=== PATIENT | female | born 1990 | race Caucasian/White ===

== ENCOUNTER 2016-04-19 19:19 | Emergency (ER) | payer BC, MEDICAID ==
[2016-04-19 19:25] VITALS: BP 132/76
[2016-04-19] MEDS ORDERED: Ondansetron INJ* 2 MG/ML VIAL IV ONE (19:38)
[2016-04-19] MEDS ORDERED: NS 0.9% 1000 ML* 1,000 ML IV ONE (19:38)
[2016-04-19] MEDS ORDERED: Ketorolac INJ* 30 MG/ML 1 ML VIAL IV ONE (19:38)
[2016-04-19 20:17] LABS: Hematocrit 40 % (35-47); Hemoglobin 13.4 g/dl (12.0-16.0); Mean Corpuscular HGB Conc 33 g/dl (31-36); Mean Corpuscular Hemoglobin 29 pg (27-31); Mean Corpuscular Volume 87 fL (80-97); Mean Platelet Volume 8 um3 (7.4-10.4); Red Blood Count 4.62 10^6/ul (4.0-5.4); Red Cell Distribution Width 13 % (10.5-15); Urine Bacteria Absent (Absent); Urine Bilirubin Negative (Negative); Urine Glucose Negative (Negative); Urine Nitrite Negative (Negative); White Blood Count 12.6 10^3/ul (3.5-10.8)
[2016-04-19 20:30] LABS: ALT 39 U/L (7-52); AST 23 U/L (13-39); Albumin 4.6 g/dL (3.2-5.2); Alkaline Phosphatase 60 U/L (34-104); Anion Gap 3 mmol/L (2-11); BUN/Creatinine Ratio 18.1 (8-20); Blood Urea Nitrogen 13 mg/dL (6-24); CO2 Carbon Dioxide 26 mmol/L (22-32); Calcium 9.4 mg/dL (8.6-10.3); Chloride 105 mmol/L (101-111); EGFR Non-African American 99.5 (>60); Globulin 2.6 g/dL (2-4); Glucose 95 mg/dL (70-100); Potassium 3.5 mmol/L (3.5-5.0); Sodium 134 mmol/L (133-145); Total Protein 7.2 g/dL (6.4-8.9)
--- NOTE | 2016-04-19 20:38 | ED ---
Stephane Nazario Erika, scribed for German Hernandez MD on 04/19/16 at 1943 . Abdominal Pain/Female - HPI Summary HPI Summary: Patient is a 26-year-old female presenting to the ED with c/o intermittent lower abdominal pain starting 1 month ago. Patient reports that for the past month, she has experienced the abdominal pain, lower back pain, and vaginal discharge, all gradually worsening. She also reports intermittent vomiting, most recently yesterday, and intermittent diarrhea, most recently 1 week ago. She also states pain with BMs. Associated symptoms include headaches and a subjective fever with diaphoresis. Pt denies urinary symptoms. Patient states she has not been seen for the pain in the past, and that she came in today because the pain worsened. She reports that pain is not alleviated by Tylenol and ibuprofen, which she took a few days ago. She also reports she has been taking her friend's hydrocodone (most recently this morning) and oxycodone ( most recently this afternoon). Pt states she has an implanon, and her last period was about 1 year ago. - History of Current Complaint Chief Complaint: EDAbdPain Stated Complaint: LOWER BACK/ABD PAIN Hx Obtained From: Patient, Family/Television Production Technician - Mother Hx Last Menstrual Period: NEXPLANON Onset/Duration: Gradual Onset, Lasting Weeks - about 1 month, Worse Since Timing: Intermittent Episode Lasting Severity Initially: Mild Severity Currently: Moderate Pain Intensity: 8 Pain Scale Used: 0-10 Numeric Location: Other - lower Radiates: Yes Radiates to: Back - lower Aggravating Factor(s): Food Associated Signs and Symptoms: Positive: Diaphoresis, Fever, Back Pain, Vaginal Discharge, Nausea, Vomiting, Diarrhea. Negative: Urinary Symptoms Allergies/Adverse Reactions: Allergies Allergy/AdvReac Type Severity Reaction Status Date / Time Amoxicillin [From Augmentin] Allergy Hives Verified 03/12/16 18:51 Clavulanic Acid Allergy Hives Verified 03/12/16 18:51 [From Augmentin] Penicillins Allergy Hives Verified 03/12/16 18:51 CAT Allergy Hives Uncoded 01/19/16 09:30 PMH/Surg Hx/FS Hx/Imm Hx Endocrine/Hematology History: Denies: Hx Diabetes, Hx Thyroid Disease Cardiovascular History: Reports: Other Cardiovascular Problems/Disorders - HEART MURMUR Denies: Hx Hypertension Respiratory History: Denies: Hx Asthma, Hx Chronic Obstructive Pulmonary Disease (COPD) GI History: Denies: Hx Ulcer Psychiatric History: Reports: Hx Anxiety, Hx Depression, Hx Bipolar Disorder - sees mental health, Hx Substance Abuse Denies: Hx Eating Disorder, Hx of Violent Episodes Against Others - Surgical History Surgery Procedure, Year, and Place: 06/14/14 Infectious Disease History: No Infectious Disease History: Denies: Hx Clostridium Difficile, Hx Hepatitis, Hx Human Immunodeficiency Virus (HIV), Hx of Known/Suspected MRSA, Hx Shingles, Hx Tuberculosis, Hx Known/ Suspected VRE, Hx Known/Suspected VRSA, History Other Infectious Disease, Traveled Outside the [place] in Last 30 Days - Family History Known Family History: Positive: Hypertension - Social History Alcohol Use: None Hx Tobacco Use: Yes Smoking Status (MU): Current Every Day Smoker Type: Cigarettes Amount Used/How Often: 1/2 PPD Length of Time of Smoking/Using Tobacco: 6 YEARS Have You Smoked in the Last Year: Yes Review of Systems Positive: Fever, Skin Diaphoresis Positive: Abdominal Pain, Vomiting, Diarrhea, Nausea, Other - painful BMs Positive: discharge. Negative: dysuria, frequency Musculoskeletal: Other - lower back pain Positive: Headache All Other Systems Reviewed And Are Negative: Yes Physical Exam Triage Information Reviewed: Yes Vital Signs On Initial Exam: Initial Vitals Temp Pulse Resp BP Pulse Ox 97.7 F 114 18 132/76 100 04/19/16 19:22 04/19/16 19:22 04/19/16 19:22 04/19/16 19:22 04/19/16 19:22 Vital Signs Reviewed: Yes Appearance: Positive: Well-Appearing, No Pain Distress Skin: Positive: Warm Head/Face: Positive: Normal Head/Face Inspection Eyes: Positive: PRISCILA ENT: Positive: Hearing grossly normal Neck: Positive: Supple Respiratory/Lung Sounds: Positive: Clear to Auscultation, Breath Sounds Present Cardiovascular: Positive: Normal Abdomen Description: Positive: No Organomegaly, Soft, Other: - mild lower abd tenderness. Negative: Distended, Guarding Bowel Sounds: Positive: Present Pelvic Exam: Positive: external exam normal, discharge - moderate white cervical , tender w/ cervical motion. Negative: active bleeding Musculoskeletal: Positive: Strength/ROM Intact Neurological: Positive: Sensory/Motor Intact Diagnostics - Vital Signs Vital Signs Temp Pulse Resp BP Pulse Ox 04/19/16 19:22 97.7 F 114 18 132/76 100 - Laboratory Lab Results: Lab Results 04/19/16 04/19/16 04/19/16 Range/Units 19:50 19:50 19:50 WBC 12.6 H (3.5-10.8) 10^3/ul RBC 4.62 (4.0-5.4) 10^6/ul Hgb 13.4 (12.0-16.0) g/dl Hct 40 (35-47) % MCV 87 (80-97) fL MCH 29 (27-31) pg MCHC 33 (31-36) g/dl RDW 13 (10.5-15) % Plt Count 252 (150-450) 10^3/ul MPV 8 (7.4-10.4) um3 Neut % (Auto) 61.1 (38-83) % Lymph % (Auto) 27.4 (25-47) % Parke % (Auto) 7.5 (1-9) % Eos % (Auto) 3.4 (0-6) % Baso % (Auto) 0.6 (0-2) % Absolute Neuts (auto) 7.7 (1.5-7.7) 10^3/ul Absolute Lymphs (auto) 3.5 (1.0-4.8) 10^3/ul Absolute Monos (auto) 0.9 H (0-0.8) 10^3/ul Absolute Eos (auto) 0.4 (0-0.6) 10^3/ul Absolute Basos (auto) 0.1 (0-0.2) 10^3/ul Absolute Nucleated RBC 0 10^3/ul Nucleated RBC % 0 Sodium 134 (133-145) mmol/L Potassium 3.5 (3.5-5.0) mmol/L Chloride 105 (101-111) mmol/L Carbon Dioxide 26 (22-32) mmol/L Anion Gap 3 (2-11) mmol/L BUN 13 (6-24) mg/dL Creatinine 0.72 (0.51-0.95) mg/dL Est GFR ( Amer) 128.0 (>60) Est GFR (Non-Af Amer) 99.5 (>60) BUN/Creatinine Ratio 18.1 (8-20) Glucose 95 (70-100) mg/dL Calcium 9.4 (8.6-10.3) mg/dL Total Bilirubin 0.20 (0.2-1.0) mg/dL AST 23 (13-39) U/L ALT 39 (7-52) U/L Alkaline Phosphatase 60 (34-104) U/L Total Protein 7.2 (6.4-8.9) g/dL Albumin 4.6 (3.2-5.2) g/dL Globulin 2.6 (2-4) g/dL Albumin/Globulin Ratio 1.8 (1-3) Urine Color Alexsandra Urine Appearance Cloudy Urine pH 5.0 (5-9) Ur Specific [place] 1.030 (1.010-1.030) Urine Protein Negative (Negative) Urine Ketones Trace H (Negative) Urine Blood 1+ H (Negative) Urine Nitrate Negative (Negative) Urine Bilirubin Negative (Negative) Urine Urobilinogen Negative (Negative) Ur Leukocyte Esterase Trace H (Negative) Urine WBC (Auto) Trace(0-5/hpf) (Absent) Urine RBC (Auto) 2+(6-10/hpf) H (Absent) Ur Squamous Epith Cells Present H (Absent) Urine Bacteria Absent (Absent) Urine Glucose Negative (Negative) Result Diagrams: 04/19/16 19:50 04/19/16 19:50 Lab Statement: Any lab studies that have been ordered have been reviewed, and results considered in the medical decision making process. Re-Evaluation - Re-Evaluation First Eval Re-Evaluation Time: 21:25 Change: Improved Abdominal Pain Fem Course/Dx - Course Course Of Treatment: A 26 y/o F presents to the ED with a CC of abdominal pain, back pain, vaginal discharge for 1 month. Patient reports she has been taking her friend's oxycodone and hydrocodone to attempt to manage the pain. Pelvic exam performed, samples sent. Patient diagnosed with PID and discharged with follow up from OB-Office Worker. Pt given Rocephin, zithromax, toradol, zofran, IV fluids in the ED. - Diagnoses Provider Diagnoses: PID (acute pelvic inflammatory disease) Discharge - Discharge Plan Condition: Improved Disposition: HOME Patient Education Materials: Pelvic Inflammatory Disease (ED) Referrals: Drew Goncalves MD [Primary Care Provider] - Makayla Thacker MD [Medical Doctor] - Additional Instructions: Please follow up with OB-Office Worker. The documentation as recorded by the Stephane knutson Erika accurately reflects the service I personally performed and the decisions made by me, German Hernandez MD. Addendum entered and electronically signed by Mary Streeter PA 04/21/16 07: 12: ED Addendum Addendum: Patient with vaginal culture + for gardnerella and h/o vaginal discharge. Will start on metrogel, and call patient with the results. Addendum entered and electronically signed by Mary Streeter PA 04/21/16 07: 25: ED Addendum Addendum: Attempted to call the patient by the two available numbers at [phone]. Home number was answered by her father who stated that she wasn't at the house, and he had no way to reach her. The alternate number went straight to "this number is not accepting phone calls" and not able to leave a voice mail. Letter was prepared for the patient and given to Anupama the fish warden to send, rx was sent to her pharmacy.
[2016-04-19] MEDS ORDERED: cefTRIAXone VIAL(*) 250 MG VIAL IM ONE (20:40)
[2016-04-19] MEDS ORDERED: Azithromycin TAB* 250 MG PO ONE (20:40)
== END 2016-04-19 21:48 | disposition home or self-care (01) ==
LOC: ED 19:19
DX: N73.9 Female pelvic inflammatory disease, unspecified (principal); R10.30 Lower abdominal pain, unspecified; M54.5 Low back pain; F17.210 Nicotine dependence, cigarettes, uncomplicated; R50.9 Fever, unspecified; R11.2 Nausea with vomiting, unspecified; R51 Headache
CPT/HCPCS: 36415; 80053; 81003; 81015; 84702; 85025; 87086; 87480; 87491; 87510; 87591; 87661; 96361; 96374; 96375; 99282; A9270-GY; J0696; J1885; J2405

== ENCOUNTER 2016-05-28 16:04 | Emergency (ER) | payer BC, MEDICAID ==
[2016-05-28] MEDS ORDERED: diPHENhydraMINE IV* 50 MG/ML 1 ml VIAL (BENADRYL) IV ONE (16:14)
[2016-05-28] MEDS ORDERED: diPHENhydraMINE IV* 50 MG/ML 1 ml VIAL (BENADRYL) ONE (16:15)
[2016-05-28 17:13] VITALS: BP 110/53
[2016-05-28] MEDS ORDERED: Famotidine IV* 10 MG/ML 2 ML (20 mg) IV SLOW PU SCH (21:00)
--- NOTE | 2016-05-28 21:06 | ED ---
Elder Nazario Michael, scribed for Isaias Leiva MD on 05/28/16 at 1655 . Allergic Reaction/Systemic - HPI Summary HPI Summary: 26 y/o female comes to the ED presenting with an allergic reaction after her cat sat on her coat today at 1500. The pt c/o bilateral eyelid swelling, ocular pruritus, and mild throat tightening. She denies any rashes. The pt's sx are alleviated with Benadryl since arriving to the ED. The pt has prior hx of allergic reactions that resulted in hospitalization. - History of Current Complaint Chief Complaint: EDAllergicReaction Time Seen by Provider: 05/28/16 16:12 Hx Obtained From: Patient, Medical Records Hx Last Menstrual Period: NEXPLANON Onset/Duration: Sudden Onset, Started hours ago, Still Present Timing: Constant Severity Initially: Mild Severity Currently: Mild Pain Intensity: 0 Pain Scale Used: 0-10 Numeric Location: Discrete @ - eye lids Character: Swelling, Pruritus Alleviating Factor(s): OTC Meds Associated Signs And Symptoms: Positive: Throat Tightening, Other: - eye swelling and pruritus. Negative: Rash - Allergies/Home Medications Allergies/Adverse Reactions: Allergies Allergy/AdvReac Type Severity Reaction Status Date / Time Amoxicillin [From Augmentin] Allergy Hives Verified 03/12/16 18:51 Clavulanic Acid Allergy Hives Verified 03/12/16 18:51 [From Augmentin] Penicillins Allergy Hives Verified 03/12/16 18:51 CAT Allergy Hives Uncoded 01/19/16 09:30 PMH/Surg Hx/FS Hx/Imm Hx Endocrine/Hematology History: Denies: Hx Diabetes, Hx Thyroid Disease Cardiovascular History: Reports: Other Cardiovascular Problems/Disorders - HEART MURMUR Denies: Hx Hypertension Respiratory History: Denies: Hx Asthma, Hx Chronic Obstructive Pulmonary Disease (COPD) GI History: Denies: Hx Ulcer Psychiatric History: Reports: Hx Anxiety, Hx Depression, Hx Bipolar Disorder - sees mental health, Hx Substance Abuse Denies: Hx Eating Disorder, Hx of Violent Episodes Against Others - Surgical History Surgery Procedure, Year, and Place: 06/14/14 Infectious Disease History: No Infectious Disease History: Denies: Hx Clostridium Difficile, Hx Hepatitis, Hx Human Immunodeficiency Virus (HIV), Hx of Known/Suspected MRSA, Hx Shingles, Hx Tuberculosis, Hx Known/ Suspected VRE, Hx Known/Suspected VRSA, History Other Infectious Disease, Traveled Outside the [place] in Last 30 Days - Family History Known Family History: Positive: Hypertension - Social History Occupation: Employed Full-time Lives: With Family Alcohol Use: None Hx Substance Use: Yes Substance Use Type: Reports: None Hx Tobacco Use: Yes Smoking Status (MU): Current Every Day Smoker Type: Cigarettes Amount Used/How Often: 1/2 PPD Length of Time of Smoking/Using Tobacco: 6 YEARS Have You Smoked in the Last Year: Yes Review of Systems Negative: Fever Positive: Other - swelling. pruritus. Positive: Other - throat tightening Negative: Rash All Other Systems Reviewed And Are Negative: Yes Physical Exam Triage Information Reviewed: Yes Vital Signs On Initial Exam: Initial Vitals Temp Pulse Resp BP Pulse Ox 100.3 F 95 16 131/70 100 05/28/16 16:08 05/28/16 16:08 05/28/16 16:08 05/28/16 16:08 05/28/16 16:08 Vital Signs Reviewed: Yes Appearance: Positive: Well-Appearing, No Pain Distress Head/Face: Positive: Normal Head/Face Inspection Eyes: Positive: Other: - swelling bilateral eyes. pink conjuctiva and watering eyes. ENT: Positive: Normal ENT inspection - no pharyngeal, tongue, or uvula swelling. Respiratory/Lung Sounds: Positive: Clear to Auscultation, Other - no stridor. Negative: Wheezes Cardiovascular: Positive: RRR, Other - no gallops, S1, S2. Negative: Murmur, Rub Abdomen Description: Positive: Nontender, Soft, Other: - flat Musculoskeletal: Positive: Other - no calf tenderness. Negative: Edema Left, Edema Right Neurological: Positive: Alert, Oriented to Person Place, Time Psychiatric: Positive: Other - logical and coherent AVPU Assessment: Alert Diagnostics - Vital Signs Vital Signs Temp Pulse Resp BP Pulse Ox 05/28/16 16:08 100.3 F 95 16 131/70 100 - Laboratory Lab Statement: Any lab studies that have been ordered have been reviewed, and results considered in the medical decision making process. Allergic Reaction Course/Dx - Course Assessment/Plan: The patient is already improving with Benadryl. There is no sign of angioedema, airway compromise, or allergic reaction in air ways. She will take Benadryl and Zantac this evening and will return for any worsening sx. - Diagnoses Differential Diagnosis/HQI/PQRI: Positive: Anaphylaxis, Angioedema, Bronchospasm , Erythema Nodosum, Local Allergic Reaction, Jimenez-Johnsons Syndrome, Urticaria Provider Diagnoses: Environmental allergies Discharge - Discharge Plan Condition: Good Disposition: HOME Patient Education Materials: General Allergic Reaction (ED) Referrals: Drew Goncalves MD [Primary Care Provider] - If Needed Additional Instructions: take a benadryl and zantac later this evening. The documentation as recorded by the Elder knutson Michael accurately reflects the service I personally performed and the decisions made by , Isaias Leiva MD.
== END 2016-05-28 17:12 | disposition home or self-care (01) ==
LOC: ED 16:04
DX: T78.40XA Allergy, unspecified, initial encounter (principal); X58.XXXA Exposure to other specified factors, initial encounter; L29.9 Pruritus, unspecified; F17.210 Nicotine dependence, cigarettes, uncomplicated
CPT/HCPCS: 99282; J1200

== ENCOUNTER 2016-06-04 12:26 | Emergency (ER) | payer BC, MEDICAID ==
[2016-06-04 12:59] VITALS: BP 114/63
--- NOTE | 2016-06-11 21:11 | UC ---
Abdominal Pain Female HPI - HPI Summary HPI Summary: worsening abd. and mouth pain---feels pcp is not addressing her pain adequately - History of Current Complaint Chief Complaint: UCAbdominalPain Stated Complaint: ABDOMINAL AND DENTAL PAIN Time Seen by Provider: 06/04/16 13:03 Hx Obtained From: Patient Hx Last Menstrual Period: 08/28/14--IUD ?: No Onset/Duration: Gradual Onset, Lasting Weeks, Still Present Timing: Constant Severity Initially: Moderate Severity Currently: Moderate Pain Intensity: 8 Pain Scale Used: 0-10 Numeric Location: Diffuse Radiates: No Character: Colicy, Cramping Aggravating Factor(s): Nothing Alleviating Factor(s): Nothing Associated Signs and Symptoms: Positive: Negative Allergies/Adverse Reactions: Allergies Allergy/AdvReac Type Severity Reaction Status Date / Time Amoxicillin [From Augmentin] Allergy Hives Verified 06/04/16 12:48 Clavulanic Acid Allergy Hives Verified 06/04/16 12:48 [From Augmentin] Penicillins Allergy Hives Verified 06/04/16 12:48 CAT Allergy Hives Uncoded 01/19/16 09:30 Home Medications: Home Medications Buprenorphine/Naloxone SL TAB* [Suboxone 8-2 mg SL TAB*] 0.5 tab PO BID [History Confirmed 06/04/16] cloNIDine TAB* [Catapres TAB*] 1 tab PO DAILY 06/04/16 [History Confirmed ] PMH/Surg Hx/FS Hx/Imm Hx Previously Healthy: No Endocrine History Of: Denies: Diabetes, Thyroid Disease Cardiovascular History Of: Denies: Cardiac Disorders, Hypertension Respiratory History Of: Denies: COPD, Asthma GI/ History Of: Denies: Ulcer Psychological History Of: Reports: Anxiety, Depression, Bipolar Disorder - sees mental health - Surgical History Surgical History: Yes Surgery Procedure, Year, and Place: 06/14/14 - Family History Known Family History: Positive: Hypertension - Social History Occupation: Unemployed Lives: With Family Alcohol Use: None Substance Use Type: None Smoking Status (MU): Light Every Day Tobacco Smoker Type: Cigarettes Amount Used/How Often: 1/2 PPD Length of Time of Smoking/Using Tobacco: 6 YEARS Have You Smoked in the Last Year: Yes Household Exposure Type: Cigarettes Review of Systems Constitutional: Negative Skin: Negative Eyes: Negative ENT: Dental Pain Respiratory: Negative Cardiovascular: Negative Gastrointestinal: Abdominal Pain Genitourinary: Negative Motor: Negative Neurovascular: Negative Musculoskeletal: Negative Neurological: Negative Psychological: Negative All Other Systems Reviewed And Are Negative: Yes Physical Exam Triage Information Reviewed: Yes Appearance: Ill-Appearing - appears older than stated age, Pain Distress - rocking in pain, Thin Vital Signs: Initial Vital Signs Temp 98.9 F 06/04/16 12:51 Pulse 98 06/04/16 12:51 Resp 17 06/04/16 12:51 BP 114/63 06/04/16 12:51 Pulse Ox 98 06/04/16 12:51 Vital Signs Reviewed: Yes Eye Exam: Normal Eyes: Positive: Conjunctiva Clear ENT Exam: Normal ENT: Positive: Normal ENT inspection, Hearing grossly normal, Pharynx normal, TMs normal. Negative: Nasal congestion, Nasal drainage, Tonsillar swelling, Tonsillar exudate, Trismus, Muffled/hoarse voice Dental: Positive: Gross Decay/Caries @ Neck exam: Normal Neck: Positive: Supple, Nontender, No Lymphadenopathy Respiratory Exam: Normal Respiratory: Positive: Chest non-tender, Lungs clear, Normal breath sounds, No respiratory distress, No accessory muscle use Cardiovascular Exam: Normal Cardiovascular: Positive: RRR, No Murmur, Pulses Normal, Brisk Capillary Refill Abdominal Exam: Other Abdomen Description: Positive: No Organomegaly, Soft, Other: - diffuse discomfort. Negative: CVA Tenderness (R), CVA Tenderness (L) Bowel Sounds: Positive: Present Musculoskeletal Exam: Normal Musculoskeletal: Positive: Strength Intact, ROM Intact, No Edema Neurological Exam: Normal Neurological: Positive: Alert, Muscle Tone Normal Psychological Exam: Normal Skin Exam: Normal Abd Pain Female Course/Dx - Course Course Of Treatment: transfer to [facility] [place] ed--npo - Differential Dx/Diagnosis Differential Diagnosis: Appendicitis, Bowel Obstruction, Constipation, Diverticulitis Provider Diagnoses: Abdomen pain - Physician Notification/Consults Discussed Patient Care With: FINN Wood Time Discussed With Above Provider: 13:40 Instructed by Provider To: Transfer Discharge - Discharge Plan Condition: Stable Disposition: [facility] Referrals: Drew Goncalves MD [Primary Care Provider] -
== END 2016-06-04 13:18 | disposition short-term general hospital (02) ==
LOC: UCEAST 12:26
DX: R10.9 Unspecified abdominal pain (principal); R68.84 Jaw pain; Z88.1 Allergy status to other antibiotic agents; Z88.0 Allergy status to penicillin; F17.290 Nicotine dependence, other tobacco product, uncomplicated
CPT/HCPCS: 99212; G0463

== ENCOUNTER 2016-06-18 02:27 | Emergency (ER) | payer BC, MEDICAID ==
[2016-06-18] MEDS ORDERED: diPHENhydraMINE PO* 25 MG PO ONE (02:58)
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
[2016-06-18 04:08] VITALS: BP 102/56
== END 2016-06-18 04:05 | disposition home or self-care (01) ==
LOC: ED 02:27
DX: F41.0 Panic disorder [episodic paroxysmal anxiety] (principal); R07.9 Chest pain, unspecified; R68.83 Chills (without fever); F17.210 Nicotine dependence, cigarettes, uncomplicated
CPT/HCPCS: 93005; 99282; A9270-GY

== ENCOUNTER 2016-07-08 13:36 | Emergency (ER) | payer BC, MEDICAID ==
--- NOTE | 2016-07-08 15:35 | RAD ---
HISTORY: Status post fall, left foot tenderness COMPARISONS: None VIEWS: 3, Frontal, lateral, and oblique views of the left foot FINDINGS: BONE DENSITY: Normal. BONES: There is no displaced fracture. 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 ALIGNMENT: There is no dislocation. SOFT TISSUES: Unremarkable. OTHER FINDINGS: None. IMPRESSION: NO ACUTE OSSEOUS INJURY. IF SYMPTOMS PERSIST, RECOMMEND REPEAT IMAGING.
--- NOTE | 2016-07-08 15:36 | RAD ---
Indication: Pain around the patella of the LEFT knee post fall 2 days ago. Comparison: None. Technique: AP, tunnel, lateral, and sunrise views LEFT knee. Report: Normal alignment and preserved joint spaces. Negative for effusion or fracture. Unremarkable soft tissue contours. IMPRESSION: Negative exam.
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
[2016-07-08 16:20] VITALS: BP 100/71
--- NOTE | 2016-07-08 19:11 | UC ---
Raoul Nazario Matthew, scribed for Stormy Strange DO on 07/08/16 at 1458 . HPI Febrile Illness - HPI Summary HPI Summary: A 26 y/o female [place] [facility] [place] intermittent "low grade fever" for approximately 1 week, which reached a height of 99.4F. Associated symptoms include sore throat, nasal congestion, intermittent ear pain, mild cough, and headache. She denies nausea, vomiting, abdominal pain, chest pain, and SOB. The patient states that she also has intermittent hematuria and is currently going to follow-up with a urologist on 07/15/16. She hasn't seen hematuria lately however. The patient's also c/o of left ankle and knee pain after falling on ice 2 days ago. She fell in the drive and rolled her left ankle during the fall. The pain initially was rated 6/10 immediately after the fall, 7/10 with ambulation following the fall, and yesterday the pain became a 8-9/10 in severity. The patient initially had no knee pain immediately after the fall, but the left knee has gradually started hurting more with ambulation and is now rated 8/10 in severity. The pain is described as sharp. She has a Hx of left knee injury and pain. She believed it was aggravated by shampooing a carpet with her grandmother yesterday. Associated symptoms include swelling and erythema. - History of Current Complaint Chief Complaint: UCRespiratory Time Seen by Provider: 07/08/16 14:43 Hx Obtained From: Patient Onset/Duration: Started Weeks Ago, Traumatic, Still Present Timing: Constant Temperature: 99.4 F - Highest Initial Severity: Moderate Current Severity: Moderate Pain Intensity: 7 Aggravating Factors: Other: - walking, touch Alleviating Factors: Nothing Associated Signs and Symptoms: Cough, Headache, Sore Throat, Other: - Nasal congestion, ear pain - Allergy/Home Medications Allergies/Adverse Reactions: Allergies Allergy/AdvReac Type Severity Reaction Status Date / Time Amoxicillin [From Augmentin] Allergy Hives Verified 06/04/16 12:48 Clavulanic Acid Allergy Hives Verified 06/04/16 12:48 [From Augmentin] Penicillins Allergy Hives Verified 06/04/16 12:48 CAT Allergy Hives Uncoded 01/19/16 09:30 Home Medications: Home Medications Mirtazapine 1 tab PO BEDTIME 07/08/16 [History Confirmed 07/08/16] PMH/Surg Hx/FS Hx/Imm Hx Endocrine/Hematology History: Denies: Hx Diabetes, Hx Thyroid Disease Cardiovascular History: Reports: Other Cardiovascular Problems/Disorders - HEART MURMUR Denies: Hx Hypertension Respiratory History: Denies: Hx Asthma, Hx Chronic Obstructive Pulmonary Disease (COPD) GI History: Reports: Hx Crohn's Disease - possible, Hx Gastrointestinal Bleed Denies: Hx Ulcer History: Reports: Other Problems/Disorders - hematuria Psychiatric History: Reports: Hx Anxiety, Hx Depression, Hx Bipolar Disorder - sees mental health, Hx Substance Abuse Denies: Hx Eating Disorder, Hx of Violent Episodes Against Others - Surgical History Surgery Procedure, Year, and Place: 06/14/14 Infectious Disease History: No Infectious Disease History: Denies: Hx Clostridium Difficile, Hx Hepatitis, Hx Human Immunodeficiency Virus (HIV), Hx of Known/Suspected MRSA, Hx Shingles, Hx Tuberculosis, Hx Known/ Suspected VRE, Hx Known/Suspected VRSA, History Other Infectious Disease, Traveled Outside the [place] in Last 30 Days - Family History Known Family History: Positive: Hypertension, Diabetes Negative: Cardiac Disease - Social History Lives: With Family Alcohol Use: None Hx Substance Use: Yes Substance Use Type: Reports: None, Prescribed Hx Tobacco Use: Yes Smoking Status (MU): Light Every Day Tobacco Smoker Type: Cigarettes Amount Used/How Often: 1/2 PPD Length of Time of Smoking/Using Tobacco: 6 YEARS Have You Smoked in the Last Year: Yes Cessation Counseling: Patient Advised to Stop Review of Systems Constitutional: Fever Skin: Negative Eyes: Negative ENT: Sore Throat, Ear Ache, Nasal Discharge Respiratory: Cough Cardiovascular: Negative Gastrointestinal: Negative Genitourinary: Negative Motor: Other - Pain with ROM Neurovascular: Negative Musculoskeletal: Edema - left ankle, Myalgia - left thu; left knee Neurological: Headache Psychological: Negative All Other Systems Reviewed And Are Negative: Yes Physical Exam Triage Information Reviewed: Yes Appearance: Well-Appearing, No Pain Distress, Well-Nourished Vital Signs: Initial Vital Signs Temp 98.1 F 07/08/16 13:43 Pulse 102 07/08/16 13:43 Resp 20 07/08/16 13:43 BP 122/72 07/08/16 13:43 Pulse Ox 100 03/23/17 13:43 Vital Signs Reviewed: Yes Eyes: Positive: Conjunctiva Clear. Negative: Discharge ENT: Positive: Hearing grossly normal, Pharyngeal erythema, Nasal congestion, Nasal drainage, TMs normal, Tonsillar swelling - mild, Other: - Sinus tenderness over the left maxillary and frontal sinuses. Negative: Tonsillar exudate, Trismus, Muffled/hoarse voice Neck: Positive: Supple, Nontender Respiratory: Positive: Lungs clear, Normal breath sounds, No respiratory distress, No accessory muscle use Cardiovascular: Positive: RRR, No Murmur Musculoskeletal Exam: Other - Diffuse tenderness over the left knee including the patella; Inspection of the left ankle was significant for 3cm x 5cm patch of erythema over the left lateral malleolus, which was tender and warm. The patients also tender over the base of the 5th metatarsal; Positive calcaneal squeeze Neurological: Positive: Alert, Muscle Tone Normal Psychological: Positive: Age Appropriate Behavior Skin Exam: Other - Dry, Normal Color Diagnostics - Radiology Left Ankle Xray Interpretation: No Acute Changes - IMPRESSION: NO ACUTE OSSEOUS INJURY. IF SYMPTOMS PERSIST, RECOMMEND REPEAT IMAGING. Radiology Interpretation Completed By: Radiologist Left Foot Ankle Xray Interpretation: No Acute Changes - IMPRESSION: NO ACUTE OSSEOUS INJURY. IF SYMPTOMS PERSIST, RECOMMEND REPEAT IMAGING. Radiology Interpretation Completed By: Radiologist Left Knee XR Xray Interpretation: No Acute Changes - IMPRESSION: Negative exam. Radiology Interpretation Completed By: Radiologist Course/Dx - Febrile Illness Differential Diagnoses: Cellulitis, Other: - sinusitis, fx, sprain - Diagnoses Clinic Provider Diagnoses: sinusitis, r/o feliciano fx, cellulitis Discharge - Discharge Plan Condition: Stable Disposition: HOME Prescriptions: Acetaminop/Codeine 30 MG TAB* [Tylenol/Codeine 30 MG TAB*] 1 tab PO Q6H PRN #14 tab MDD 4 PRN Reason: Pain Cefdinir [Cefdinir 300 MG CAP] 300 mg PO BID #20 cap Patient Education Materials: Crutch Instructions (ED), Cellulitis (ED), Sinusitis (ED), SUSPECTED FRACTURE (ED) Referrals: Arian Sharma MD [Medical Doctor] - (FOLLOW UP IN 5-7 DAYS) Drew Goncalves MD [Primary Care Provider] - 2 Days (Follow up in 2 days for re- evaluation. This follow up visit is important, we want to know that you are improving. If you can not get in with your PCP, return here for re-evaluation. ) Additional Instructions: TRY USING THE NETTI POT IN THE MORNINGS DISCUSSED. YOU MUST ALWAYS USE CLEAN WATER. REMEMBER, POSTURE IS AN IMPORTANT FACTOR IN SINUS DRAINAGE. MOVE YOUR NECK, BREATHE. CEPHALOSPORINS: An antibiotic of the cephalosporin class has been prescribed. This type of antibiotic covers a wide variety of infections, including those of the skin, lungs, middle ear, and urinary tract. This antibiotic is somewhat similar to the penicillin family. In rare cases , a person who is allergic to penicillin will also be allergic to this medication. If you have had a severe allergic reaction to penicillin, and have not taken this antibiotic since that time, notify your doctor. Antibiotics which cover many germs ("broad spectrum" antibiotics) are more likely to cause diarrhea or "yeast" infections. Women prone to vaginal yeast problems may suffer an attack after taking this antibiotic. In infants, oral thrush (white spots "stuck" on the cheek) or yeast diaper rash may result. See your doctor if these problems occur. Call the doctor at once if you develop hives, itching, shortness of breath , or lightheadedness. ANY TIME YOU TAKE AN ANTIBIOTIC, IT IS IMPORTANT TO REPLENISH THE BODY'S BALANCE OF "GOOD" BACTERIA BY EATING HIGH QUALITY CULTURED FOOD SUCH YOGURT, SAURKRAUT OR YARA CHI AND/OR TAKING A PROBIOTIC SUPPLEMENT. Your history and exam is suspicous for possible occult fracture of the base of the 5th metatarsal. This is a fracture that can have a bad outcome if not properly immobilized. So, we will treat this as a fracture until proven otherwise. That means that you must wear the WALKING BOOT 24 hours a day until the ortho provider tells you otherwise. You should also remain NON-WEIGHT BEARING until told otherwise by the orthopedist, so walking and standing should be done with the help of crutches. It will take 5-7 days to establish whether or not your bone is fracture. ACETAMINOPHEN WITH CODEINE: You have been given a prescription for acetaminophen with codeine for pain control. Codeine is a narcotic. It is best taken with food, as nausea can result if taken on an empty stomach. Don't operate machinery or drive within six hours of taking this medication. Do not combine this medication with alcohol, or with any sedative type medicine such as cold tablets or sleeping pills unless your doctor gives permission. Narcotics tend to cause constipation. It's best to get plenty of fluids, fiber, and fruits. Follow up in 2 days for re-evaluation. This follow up visit is important, we want to know that you are improving. If you can not get in with your PCP, return here for re-evaluation. The documentation as recorded by the Raoul knutson Matthew accurately reflects the service I personally performed and the decisions made by me, Stormy Strange DO.
== END 2016-07-08 16:55 | disposition home or self-care (01) ==
LOC: UCEAST 13:36
DX: J32.9 Chronic sinusitis, unspecified (principal); L03.90 Cellulitis, unspecified; R01.1 Cardiac murmur, unspecified; F41.9 Anxiety disorder, unspecified; F33.9 Major depressive disorder, recurrent, unspecified; F17.210 Nicotine dependence, cigarettes, uncomplicated; Z88.3 Allergy status to other anti-infective agents; Z88.0 Allergy status to penicillin
CPT/HCPCS: 99202; G0463

== ENCOUNTER 2016-07-31 19:28 | Emergency (ER) | payer BC, MEDICAID ==
[2016-07-31] MEDS ORDERED: Magic Mouth Was-BEN/MAAL/LIDO SWISH SWAL ONE (20:15)
[2016-07-31] MEDS ORDERED: Ketorolac INJ* 60 MG/2 ML VIAL IM ONE (20:21)
--- NOTE | 2016-07-31 20:21 | ED ---
Influenza-Like Illness - HPI Summary HPI Summary: Patient presents with a diagnosis of strep throat by her PCP three days ago. She has had two days of antibiotics. She felt she wasn't improving so she was seen by her PCP today who gave her an injection of Rocephin, but she complains her throat hurts so much that she feels like she doesn't want to swallow. She denies fever, chills, LINTON, neck pain or difficulty breathing. - History of Current Complaint Chief Complaint: EDThroatPain Time Seen by Provider: 07/31/16 19:58 Hx Obtained From: Patient Onset/Duration: Gradual Onset Severity: Severe Associated Signs & Symptoms: Sore Throat Related Hx: Possible Flu/Infectious Exposure - Allergy/Home Medications Allergies/Adverse Reactions: Allergies Allergy/AdvReac Type Severity Reaction Status Date / Time Amoxicillin [From Augmentin] Allergy Hives Verified 06/04/16 12:48 Clavulanic Acid Allergy Hives Verified 06/04/16 12:48 [From Augmentin] Penicillins Allergy Hives Verified 06/04/16 12:48 CAT Allergy Hives Uncoded 01/19/16 09:30 PMH/Surg Hx/FS Hx/Imm Hx Endocrine/Hematology History: Denies: Hx Diabetes, Hx Thyroid Disease Cardiovascular History: Reports: Other Cardiovascular Problems/Disorders - HEART MURMUR Denies: Hx Hypertension Respiratory History: Denies: Hx Asthma, Hx Chronic Obstructive Pulmonary Disease (COPD) GI History: Reports: Hx Crohn's Disease - possible, Hx Gastrointestinal Bleed Denies: Hx Ulcer History: Reports: Other Problems/Disorders - hematuria Psychiatric History: Reports: Hx Anxiety, Hx Depression, Hx Bipolar Disorder - sees mental health, Hx Substance Abuse Denies: Hx Eating Disorder, Hx of Violent Episodes Against Others - Surgical History Surgery Procedure, Year, and Place: 06/14/14 Infectious Disease History: No Infectious Disease History: Denies: Hx Clostridium Difficile, Hx Hepatitis, Hx Human Immunodeficiency Virus (HIV), Hx of Known/Suspected MRSA, Hx Shingles, Hx Tuberculosis, Hx Known/ Suspected VRE, Hx Known/Suspected VRSA, History Other Infectious Disease, Traveled Outside the [place] in Last 30 Days - Family History Known Family History: Positive: Hypertension, Diabetes Negative: Cardiac Disease - Social History Occupation: Employed Part-time Lives: With Family Alcohol Use: None Hx Substance Use: Yes Substance Use Type: Reports: None, Prescribed Hx Tobacco Use: Yes Smoking Status (MU): Light Every Day Tobacco Smoker Type: Cigarettes Amount Used/How Often: 1/2 PPD Length of Time of Smoking/Using Tobacco: 6 YEARS Have You Smoked in the Last Year: Yes Cessation Counseling: Patient Advised to Stop Review of Systems Positive: Sore Throat All Other Systems Reviewed And Are Negative: Yes Physical Exam Triage Information Reviewed: Yes Vital Signs On Initial Exam: Initial Vitals Temp Pulse Resp BP Pulse Ox 98.2 F 116 18 107/69 100 07/31/16 19:47 07/31/16 19:47 07/31/16 19:47 07/31/16 19:47 07/31/16 19:47 Vital Signs Reviewed: Yes Appearance: Positive: Well-Appearing, Well-Nourished, Pain Distress Skin: Positive: Warm, Skin Color Reflects Adequate Perfusion, Dry, Soft Head/Face: Positive: Normal Head/Face Inspection Eyes: Positive: EOMI, PRISCILA, Conjunctiva Clear ENT: Positive: Hearing grossly normal, Pharyngeal erythema, Tonsillar swelling. Negative: Trismus, Muffled/hoarse voice Neck: Positive: Supple, Nontender, No Lymphadenopathy Respiratory/Lung Sounds: Positive: Breath Sounds Present Cardiovascular: Positive: RRR Musculoskeletal: Negative: Edema Left, Edema Right Neurological: Positive: Sensory/Motor Intact, Alert, Oriented to Person Place, Time, NV Bundle Intact Distally, Normal Gait Psychiatric: Positive: Affect/Mood Appropriate AVPU Assessment: Alert Diagnostics - Vital Signs Vital Signs Temp Pulse Resp BP Pulse Ox 07/31/16 19:55 98.2 F 116 18 107/69 100 07/31/16 19:47 98.2 F 116 18 107/69 100 - Laboratory Lab Statement: Any lab studies that have been ordered have been reviewed, and results considered in the medical decision making process. Re-Evaluation - Re-Evaluation First Eval Change: Improved - pain has diminished Flu Symptom Course/Dx - Diagnoses Differential Diagnosis/HQI/PQRI: Positive: Bronchitis, Influenza, Pneumonia, Upper Respiratory Infection Provider Diagnoses: Throat pain Discharge - Discharge Plan Condition: Stable Disposition: HOME Prescriptions: Magic Mouth Was-AIDAN/MAAL/LIDO* 5 ml SWISH SWAL QID #100 ml Patient Education Materials: Strep Throat (ED) Referrals: Drew Goncalves MD [Primary Care Provider] - Additional Instructions: Please use the medication provided to help decrease pain in your throat. You can begin taking ibuprofen 600mg three times daily with meals for then next 3-5 days to decrease swelling and pain as well. Follow-up with your PCP if your symptoms do not begin to improve in the next 2-4 days. Return to the emergency department if symptoms worsen.
[2016-07-31 21:00] VITALS: BP 100/56
== END 2016-07-31 20:59 | disposition home or self-care (01) ==
LOC: ED 19:28
DX: J02.9 Acute pharyngitis, unspecified (principal); F17.210 Nicotine dependence, cigarettes, uncomplicated
CPT/HCPCS: 96372; 99283; J1885

== ENCOUNTER 2016-08-18 22:54 | Emergency (ER) | payer BC, MEDICAID ==
[2016-08-18 22:58] VITALS: BP 149/80
[2016-08-18] MEDS ORDERED: DOXYcycline CAP(*) 100 MG PO ONE (23:21)
--- NOTE | 2016-08-18 23:22 | ED ---
Bite Injury/Animal - HPI Summary HPI Summary: 26F presents with tick bite back on left side today. Her boyfriend removed it but she does not know how. She does not know how long it was on her for. She states the area hurts. She denies any rash. She denies any fever. - History of Current Complaint Chief Complaint: EDAnimalBite Stated Complaint: TICK IN STOMACH Time Seen by Provider: 08/18/16 23:09 Hx Last Menstrual Period: Nexplanon Pain Intensity: 9 - Allergies/Home Medications Allergies/Adverse Reactions: Allergies Allergy/AdvReac Type Severity Reaction Status Date / Time Amoxicillin [From Augmentin] Allergy Hives Verified 08/04/16 18:16 Clavulanic Acid Allergy Hives Verified 08/04/16 18:16 [From Augmentin] Penicillins Allergy Hives Verified 08/04/16 18:16 CAT Allergy Hives Uncoded 08/04/16 18:16 PMH/Surg Hx/FS Hx/Imm Hx Endocrine/Hematology History: Denies: Hx Diabetes, Hx Thyroid Disease Cardiovascular History: Reports: Other Cardiovascular Problems/Disorders - HEART MURMUR Denies: Hx Hypertension Respiratory History: Denies: Hx Asthma, Hx Chronic Obstructive Pulmonary Disease (COPD) GI History: Reports: Hx Crohn's Disease - possible, Hx Gastrointestinal Bleed Denies: Hx Ulcer History: Reports: Other Problems/Disorders - hematuria Psychiatric History: Reports: Hx Anxiety, Hx Depression, Hx Bipolar Disorder - sees mental health, Hx Substance Abuse Denies: Hx Eating Disorder, Hx of Violent Episodes Against Others - Surgical History Surgery Procedure, Year, and Place: 06/14/14 Infectious Disease History: No Infectious Disease History: Denies: Hx Clostridium Difficile, Hx Hepatitis, Hx Human Immunodeficiency Virus (HIV), Hx of Known/Suspected MRSA, Hx Shingles, Hx Tuberculosis, Hx Known/ Suspected VRE, Hx Known/Suspected VRSA, History Other Infectious Disease, Traveled Outside the [place] in Last 30 Days - Family History Known Family History: Positive: Hypertension, Diabetes Negative: Cardiac Disease - Social History Alcohol Use: None Hx Substance Use: Yes Substance Use Type: Reports: None, Prescribed Hx Tobacco Use: Yes Smoking Status (MU): Light Every Day Tobacco Smoker Type: Cigarettes Amount Used/How Often: 1/2 PPD Length of Time of Smoking/Using Tobacco: 6 YEARS Have You Smoked in the Last Year: Yes Review of Systems Negative: Fever Negative: Chest Pain Negative: Shortness Of Breath Positive: Other - tick bite back All Other Systems Reviewed And Are Negative: Yes Physical Exam Triage Information Reviewed: Yes Vital Signs On Initial Exam: Initial Vitals Temp Pulse Resp BP Pulse Ox 98.9 F 94 18 149/80 100 08/18/16 22:56 08/18/16 22:56 08/18/16 22:56 08/18/16 22:56 08/18/16 22:56 Vital Signs Reviewed: Yes Appearance: Positive: Well-Appearing Skin: Positive: Warm, Dry, Other - tick bite looking lesion with no tick present on left side of back Head/Face: Positive: Normal Head/Face Inspection Eyes: Positive: Normal, Conjunctiva Clear Respiratory/Lung Sounds: Positive: Clear to Auscultation, Breath Sounds Present Cardiovascular: Positive: Normal, RRR Diagnostics - Vital Signs Vital Signs Temp Pulse Resp BP Pulse Ox 08/18/16 22:56 98.9 F 94 18 149/80 100 - Laboratory Lab Statement: Any lab studies that have been ordered have been reviewed, and results considered in the medical decision making process. Bite Injury Course/Dx - Course Course Of Treatment: 26F presents with tick removal today. does not know how long be on. no tick left on area. will treat with doxcycline for ppx for lyme. patient understands and agrees with plan - Diagnoses Differential Diagnosis/HQI/PQRI: Positive: Puncture, Other - tick, lyme Provider Diagnosis: Tick bite Discharge - Discharge Plan Condition: Good Disposition: HOME Patient Education Materials: Tick Bite (ED) Referrals: Drew Goncalves MD [Primary Care Provider] - Additional Instructions: You have been prophylactically treated for Lyme disease Return to ED if develop any rash or signs of infection
== END 2016-08-18 23:41 | disposition home or self-care (01) ==
LOC: ED 22:54
DX: S30.861A Insect bite (nonvenomous) of abdominal wall, initial encounter (principal); W57.XXXA Bitten or stung by nonvenomous insect and other nonvenomous arthropods, initial encounter; Y93.9 Activity, unspecified; Y92.9 Unspecified place or not applicable; F41.8 Other specified anxiety disorders; Z88.1 Allergy status to other antibiotic agents; Z88.0 Allergy status to penicillin; F17.210 Nicotine dependence, cigarettes, uncomplicated
CPT/HCPCS: 99281; A9270-GY

== ENCOUNTER 2016-11-20 06:21 | Emergency (ER) | payer BC, MEDICAID ==
[2016-11-20 07:00] VITALS: BP 111/59
[2016-11-20 08:10] LABS: Urine Bacteria Absent (Absent); Urine Bilirubin Negative (Negative); Urine Glucose Negative (Negative); Urine Nitrite Negative (Negative)
[2016-11-20 08:11] LABS: Benzodiazepine Urine Screen None Detected (None Detect)
[2016-11-20 09:13] LABS: Hematocrit 40 % (35-47); Hemoglobin 13.5 g/dl (12.0-16.0); Mean Corpuscular HGB Conc 34 g/dl (31-36); Mean Corpuscular Hemoglobin 29 pg (27-31); Mean Corpuscular Volume 87 fL (80-97); Mean Platelet Volume 8 um3 (7.4-10.4); Red Blood Count 4.62 10^6/ul (4.0-5.4); Red Cell Distribution Width 12 % (10.5-15); White Blood Count 10.8 10^3/ul (3.5-10.8)
[2016-11-20 09:24] LABS: ALT 11 U/L (7-52); AST 16 U/L (13-39); Albumin 4.5 g/dL (3.2-5.2); Alkaline Phosphatase 71 U/L (34-104); Anion Gap 8 mmol/L (2-11); BUN/Creatinine Ratio 12.7 (8-20); Blood Urea Nitrogen 8 mg/dL (6-24); CO2 Carbon Dioxide 24 mmol/L (22-32); Calcium 9.2 mg/dL (8.6-10.3); Chloride 106 mmol/L (101-111); EGFR African American 149.3 (>60); EGFR Non-African American 116.1 (>60); Globulin 2.8 g/dL (2-4); Glucose 101 mg/dL (70-100); Sodium 138 mmol/L (133-145); Total Protein 7.3 g/dL (6.4-8.9)
[2016-11-20 09:46] LABS: Acetaminophen < 15 mcg/mL; Alcohol 77 mg/dL (<10); Salicylate < 2.50 mg/dL (<30)
[2016-11-20 09:56] LABS: TSH (Thyroid Stimulating Horm) 0.88 mcIU/mL (0.34-5.60)
--- NOTE | 2016-11-20 11:33 | ED ---
Randy Nazario SooYoung, scribed for Natalio Pineda MD on 11/20/16 at 0712 . Psychiatric Complaint - HPI Summary HPI Summary: A 26 y/o F brought in by police presents to ED with 941 SI onset last night. Pt states she got into a fight with a thais she was seeing. She says she's been "having a bad night" and stated "I don't care anymore, I want to ." She didn' t want to go to her parents home, so police brought her here. She would like to leave. Prev suicide attempt last summer. Pert PMHx: anxiety, depression, bipolar , opiate dependency. Used opiods and ETOH last night. Smoker. - History Of Current Complaint Chief Complaint: EDMentalHealth Hx Obtained From: Patient Hx Last Menstrual Period: Nexplanon Onset/Duration: Resolved Timing: Constant Severity Initially: Moderate Severity Currently: Moderate Character: Anxious Aggravating Factor(s): Recent Stress Related History: Positive For: Prior Psychiatric Issues Has Suicidal: Reports: Thoughts, Has Prior Attempt(s) - Allergies/Home Medications Allergies/Adverse Reactions: Allergies Allergy/AdvReac Type Severity Reaction Status Date / Time Amoxicillin [From Augmentin] Allergy Hives Verified 11/20/16 06:45 Clavulanic Acid Allergy Hives Verified 11/20/16 06:45 [From Augmentin] Penicillins Allergy Hives Verified 11/20/16 06:45 CAT Allergy Hives Uncoded 11/20/16 06:45 PMH/Surg Hx/FS Hx/Imm Hx Previously Healthy: No Endocrine/Hematology History: Denies: Hx Diabetes, Hx Thyroid Disease Cardiovascular History: Reports: Other Cardiovascular Problems/Disorders - HEART MURMUR Denies: Hx Hypertension Respiratory History: Denies: Hx Asthma, Hx Chronic Obstructive Pulmonary Disease (COPD) GI History: Reports: Hx Crohn's Disease - possible, Hx Gastrointestinal Bleed Denies: Hx Ulcer History: Reports: Other Problems/Disorders - hematuria Psychiatric History: Reports: Hx Anxiety, Hx Depression, Hx Bipolar Disorder - sees mental health, Hx Substance Abuse Denies: Hx Eating Disorder, Hx of Violent Episodes Against Others - Surgical History Surgery Procedure, Year, and Place: 06/14/14 - Immunization History Date of Tetanus Vaccine: unk Date of Influenza Vaccine: unk Infectious Disease History: No Infectious Disease History: Denies: Hx Clostridium Difficile, Hx Hepatitis, Hx Human Immunodeficiency Virus (HIV), Hx of Known/Suspected MRSA, Hx Shingles, Hx Tuberculosis, Hx Known/ Suspected VRE, Hx Known/Suspected VRSA, History Other Infectious Disease, Traveled Outside the [place] in Last 30 Days - Family History Known Family History: Positive: Hypertension, Diabetes, Other - COLON and CERVICAL CA Negative: Cardiac Disease - Social History Occupation: Unemployed Lives: With Family Alcohol Use: Rare Hx Substance Use: Yes Substance Use Type: Reports: Prescribed Substance Use Comment - Amount & Last Used: opiates now Hx Tobacco Use: Yes Smoking Status (MU): Light Every Day Tobacco Smoker Type: Cigarettes Amount Used/How Often: 1/2 PPD Length of Time of Smoking/Using Tobacco: 6 YEARS Have You Smoked in the Last Year: Yes Review of Systems Negative: Fever Psychological: Other - pos: SI since resolved Positive: Anxious All Other Systems Reviewed And Are Negative: Yes Physical Exam - Summary Physical Exam Summary: VITAL SIGNS: Reviewed. GENERAL: Patient is a well-developed and nourished female who is lying comfortable in the stretcher. Patient is not in any acute respiratory distress. HEAD AND FACE: No signs of trauma. No ecchymosis, hematomas or skull depressions. No sinus tenderness. EYES: PERRLA, EOMI x 2, No injected conjunctiva, no nystagmus. EARS: Hearing grossly intact. Ear canals and tympanic membranes are within normal limits. MOUTH: Oropharynx within normal limits. NECK: Supple, trachea is midline, no adenopathy, no JVD, no carotid bruit, no c- spine tenderness, neck with full ROM. CHEST: Symmetric, no tenderness at palpation LUNGS: Clear to auscultation bilaterally. No wheezing or crackles. CVS: Regular rate and rhythm, S1 and S2 present, no murmurs or gallops appreciated. ABDOMEN: Soft, non-tender. No signs of distention. No rebound, no guarding, and no masses palpated. Bowel sounds are normal. EXTREMITIES: FROM in all major joints, no edema, no cyanosis or clubbing. NEURO: Alert and oriented x 3. No acute neurological deficits. Speech is normal and follows commands. SKIN: Dry and warm PSYCH: Anxious. No homicidal thoughts or plan. No signs of psychosis or pressure speech. No tangential speech. Triage Information Reviewed: Yes Vital Signs On Initial Exam: Initial Vitals Temp Pulse Resp BP Pulse Ox 98.5 F 123 20 145/78 98 11/20/16 06:27 11/20/16 06:27 11/20/16 06:27 11/20/16 06:27 11/20/16 06:27 Vital Signs Reviewed: Yes - Sandra Coma Scale Coma Scale Total: 15 Diagnostics - Vital Signs Vital Signs Temp Pulse Resp BP Pulse Ox 11/20/16 06:40 99.1 F 115 16 111/59 99 11/20/16 06:27 98.5 F 123 20 145/78 98 - Laboratory Lab Results: Lab Results 11/20/16 11/20/16 11/20/16 Range/Units 06:55 06:55 08:58 WBC 10.8 (3.5-10.8) 10^3/ul RBC 4.62 (4.0-5.4) 10^6/ul Hgb 13.5 (12.0-16.0) g/dl Hct 40 (35-47) % MCV 87 (80-97) fL MCH 29 (27-31) pg MCHC 34 (31-36) g/dl RDW 12 (10.5-15) % Plt Count 227 (150-450) 10^3/ul MPV 8 (7.4-10.4) um3 Neut % (Auto) 50.0 (38-83) % Lymph % (Auto) 34.6 (25-47) % Ballard % (Auto) 5.9 (1-9) % Eos % (Auto) 8.7 H (0-6) % Baso % (Auto) 0.8 (0-2) % Absolute Neuts (auto) 5.4 (1.5-7.7) 10^3/ul Absolute Lymphs (auto) 3.7 (1.0-4.8) 10^3/ul Absolute Monos (auto) 0.6 (0-0.8) 10^3/ul Absolute Eos (auto) 0.9 H (0-0.6) 10^3/ul Absolute Basos (auto) 0.1 (0-0.2) 10^3/ul Absolute Nucleated RBC 0.01 10^3/ul Nucleated RBC % 0.1 Sodium (133-145) mmol/L Potassium (3.5-5.0) mmol/L Chloride (101-111) mmol/L Carbon Dioxide (22-32) mmol/L Anion Gap (2-11) mmol/L BUN (6-24) mg/dL Creatinine (0.51-0.95) mg/dL Est GFR ( Amer) (>60) Est GFR (Non-Af Amer) (>60) BUN/Creatinine Ratio (8-20) Glucose (70-100) mg/dL Calcium (8.6-10.3) mg/dL Total Bilirubin (0.2-1.0) mg/dL AST (13-39) U/L ALT (7-52) U/L Alkaline Phosphatase (34-104) U/L Total Protein (6.4-8.9) g/dL Albumin (3.2-5.2) g/dL Globulin (2-4) g/dL Albumin/Globulin Ratio (1-3) TSH (0.34-5.60) mcIU/mL Urine Color Colorless Urine Appearance Clear Urine pH 6.0 (5-9) Ur Specific Luke 1.002 L (1.010-1.030) Urine Protein Negative (Negative) Urine Ketones Negative (Negative) Urine Blood 1+ H (Negative) Urine Nitrate Negative (Negative) Urine Bilirubin Negative (Negative) Urine Urobilinogen Negative (Negative) Ur Leukocyte Esterase Negative (Negative) Urine WBC (Auto) Trace(0-5/hpf) (Absent) Urine RBC (Auto) Trace(0-2/hpf) (Absent) Urine Bacteria Absent (Absent) Urine Glucose Negative (Negative) Salicylates (<30) mg/dL Urine Opiates Screen None detected (None Detect) Acetaminophen mcg/mL Ur Barbiturates Screen None detected (None Detect) Ur Phencyclidine Scrn None detected (None Detect) Ur Amphetamines Screen None detected (None Detect) U Benzodiazepines Scrn None detected (None Detect) Urine Cocaine Screen Presumptive positive H (None Detect) U Cannabinoids Screen None detected (None Detect) Serum Alcohol (<10) mg/dL 11/20/16 Range/Units 08:58 WBC (3.5-10.8) 10^3/ul RBC (4.0-5.4) 10^6/ul Hgb (12.0-16.0) g/dl Hct (35-47) % MCV (80-97) fL MCH (27-31) pg MCHC (31-36) g/dl RDW (10.5-15) % Plt Count (150-450) 10^3/ul MPV (7.4-10.4) um3 Neut % (Auto) (38-83) % Lymph % (Auto) (25-47) % Ballard % (Auto) (1-9) % Eos % (Auto) (0-6) % Baso % (Auto) (0-2) % Absolute Neuts (auto) (1.5-7.7) 10^3/ul Absolute Lymphs (auto) (1.0-4.8) 10^3/ul Absolute Monos (auto) (0-0.8) 10^3/ul Absolute Eos (auto) (0-0.6) 10^3/ul Absolute Basos (auto) (0-0.2) 10^3/ul Absolute Nucleated RBC 10^3/ul Nucleated RBC % Sodium 138 (133-145) mmol/L Potassium 4.0 (3.5-5.0) mmol/L Chloride 106 (101-111) mmol/L Carbon Dioxide 24 (22-32) mmol/L Anion Gap 8 (2-11) mmol/L BUN 8 (6-24) mg/dL Creatinine 0.63 (0.51-0.95) mg/dL Est GFR ( Amer) 149.3 (>60) Est GFR (Non-Af Amer) 116.1 (>60) BUN/Creatinine Ratio 12.7 (8-20) Glucose 101 H (70-100) mg/dL Calcium 9.2 (8.6-10.3) mg/dL Total Bilirubin 0.20 (0.2-1.0) mg/dL AST 16 (13-39) U/L ALT 11 (7-52) U/L Alkaline Phosphatase 71 (34-104) U/L Total Protein 7.3 (6.4-8.9) g/dL Albumin 4.5 (3.2-5.2) g/dL Globulin 2.8 (2-4) g/dL Albumin/Globulin Ratio 1.6 (1-3) TSH 0.88 (0.34-5.60) mcIU/mL Urine Color Urine Appearance Urine pH (5-9) Ur Specific Luke (1.010-1.030) Urine Protein (Negative) Urine Ketones (Negative) Urine Blood (Negative) Urine Nitrate (Negative) Urine Bilirubin (Negative) Urine Urobilinogen (Negative) Ur Leukocyte Esterase (Negative) Urine WBC (Auto) (Absent) Urine RBC (Auto) (Absent) Urine Bacteria (Absent) Urine Glucose (Negative) Salicylates < 2.50 (<30) mg/dL Urine Opiates Screen (None Detect) Acetaminophen < 15 mcg/mL Ur Barbiturates Screen (None Detect) Ur Phencyclidine Scrn (None Detect) Ur Amphetamines Screen (None Detect) U Benzodiazepines Scrn (None Detect) Urine Cocaine Screen (None Detect) U Cannabinoids Screen (None Detect) Serum Alcohol 77 H (<10) mg/dL Result Diagrams: 11/20/16 08:58 11/20/16 08:58 Lab Statement: Any lab studies that have been ordered have been reviewed, and results considered in the medical decision making process. Course/Dx - Course Course Of Treatment: Pt is a 26 y/o F brought in by police for 941, SI onset last night. Pt got into a fight with a thais she was seeing. Says she's been "having a bad night" and stated "I don't care anymore, I want to ." Prev suicide attempt last summer. Pert PMHx: anxiety, depression, bipolar, opiate dependency. Used opiods and ETOH last night. Smoker. Blood work is without significant abnormalities except glucose of 101. UA results are nml except specific gravity of 1.002 and 1+ blood. Toxicology is negative except presumed positive for cocaine, serum alcohol is 77. Pt is medically cleared for MHE at 0949. After pt was medically cleared, pt was seen by , psych, assessed with substance abuse, adjustment disorder and depressive disorder. - Differential Dx/Clinical Impression Differential Diagnosis/HQI/PQRI: Positive: Anxiety, Bipolar Disorder, Depression , Suicidal Ideation Provider Diagnosis: Substance abuse, Adjustment disorder, Depressive disorder Discharge - Discharge Plan Condition: Stable Disposition: HOME Patient Education Materials: Opioid Dependence (ED) Referrals: Rosa ARAUZ,Cindy Lynn [Primary Care Provider] - Additional Instructions: Per completion of a mental health evaluation, you are cleared for release and do not require inpatient psychiatric hospitalization at this time. Please go to nearest emergency room or call 911 if safety concerns arise or condition worsens. Important Phone Numbers: [facility]~~ ph:[phone] Suicide Prevention and Crisis Services~~~~~~~~~~~~~~~~~~~~~~~ ph:[phone] National Suicide Prevention Lifeline~~~~~~~~~~~~~~~~~~~~~~~ ~~ ph:[phone] TALK (7462) [facility]~~~~~~~~~~~~~~~~~~ ~~ ph:[phone] Alcoholics Anonymous~~~~~~~~~~~~~~~~~~~~~~~~~~~~~~~~~~~~~~~~~~~~~~~~~ ph: [facility]~~~~~~ ~~ ph:[phone] [facility] Police ph:[phone] Pt is referred to [facility] at [address] [place] [address] [id number] Arrive at 9am on Tuesday11/22/16 and advise that you are there for a substance use assessment The documentation as recorded by the Randy knutson SooYoung accurately reflects the service I personally performed and the decisions made by me, Natalio Pineda MD.
== END 2016-11-20 11:46 | disposition home or self-care (01) ==
LOC: ED 06:21
DX: F19.10 Other psychoactive substance abuse, uncomplicated (principal); F43.20 Adjustment disorder, unspecified; F17.210 Nicotine dependence, cigarettes, uncomplicated; F11.20 Opioid dependence, uncomplicated; Z88.0 Allergy status to penicillin; F32.9 Major depressive disorder, single episode, unspecified; R45.851 Suicidal ideations
CPT/HCPCS: 36415; 80053; 80307; 80320; 80329; 81003; 81015; 84443; 85025; 99285; G0480

== ENCOUNTER → 2017-01-11 14:16 | Emergency (ER) | payer BC, MEDICAID ==
[2017-01-11 15:51] VITALS: BP 0/0
== END | disposition left against medical advice (07) ==
LOC: ED 14:16
DX: R21 Rash and other nonspecific skin eruption (principal); Z53.21 Procedure and treatment not carried out due to patient leaving prior to being seen by health care provider

== ENCOUNTER → 2017-01-11 16:24 | Emergency (ER) | payer BC, MEDICAID ==
[~2017-01-11 16:24] MED LIST: Clindamycin CAP* 150 MG PO ONE; Sulfamethox/Trimethoprim DS 800/160* TAB PO ONE; oxyCODONE/Acetamin 5/325 MG* TAB PO ONE
[2017-01-11 17:42] LABS: Hematocrit 38 % (35-47); Hemoglobin 12.5 g/dl (12.0-16.0); Mean Corpuscular HGB Conc 33 g/dl (31-36); Mean Corpuscular Hemoglobin 28 pg (27-31); Mean Corpuscular Volume 85 fL (80-97); Mean Platelet Volume 8 um3 (7.4-10.4); Red Blood Count 4.41 10^6/ul (4.0-5.4); Red Cell Distribution Width 13 % (10.5-15); White Blood Count 9.6 10^3/ul (3.5-10.8)
[2017-01-11 17:54] LABS: ALT 25 U/L (7-52); AST 22 U/L (13-39); Albumin 4.1 g/dL (3.2-5.2); Alkaline Phosphatase 63 U/L (34-104); Anion Gap 5 mmol/L (2-11); Blood Urea Nitrogen 20 mg/dL (6-24); CO2 Carbon Dioxide 27 mmol/L (22-32); Calcium 9.3 mg/dL (8.6-10.3); Chloride 105 mmol/L (101-111); EGFR African American 102.9 (>60); Globulin 2.9 g/dL (2-4); Glucose 90 mg/dL (70-100); Potassium 4.2 mmol/L (3.5-5.0); Sodium 137 mmol/L (133-145)
[2017-01-11 18:06] LABS: Acetaminophen < 15 mcg/mL; Alcohol < 10 mg/dL (<10); Salicylate < 2.50 mg/dL (<30)
[2017-01-11 18:21] LABS: TSH (Thyroid Stimulating Horm) 1.01 mcIU/mL (0.34-5.60)
--- NOTE | 2017-01-11 18:47 | RAD ---
INDICATION: Right upper, knee swelling. COMPARISON: There are no prior studies available for comparison. TECHNIQUE: Multiple real-time, color flow and Doppler tracings of the right upper extremity were obtained. The exam is limited due to patient cooperation. FINDINGS: The axillary, brachial, basilic and cephalic veins all demonstrate normal compressibility, augmentation with compression and phasic response with respiration. The radial and ulnar veins demonstrate normal compressibility. The subclavian and internal jugular veins also demonstrate normal color flow imaging and phasic response with respiration. IMPRESSION: SLIGHTLY LIMITED EXAM, NO EVIDENCE FOR DEEP VENOUS THROMBOSIS.
[2017-01-11 18:56] LABS: Urine Bacteria Absent (Absent); Urine Bilirubin Negative (Negative); Urine Glucose Negative (Negative); Urine Nitrite Negative (Negative)
[2017-01-11 19:04] VITALS: BP 116/62
[2017-01-11 19:06] LABS: Benzodiazepine Urine Screen None Detected (None Detect)
--- NOTE | 2017-01-14 14:46 | ED ---
Bert Nazario Thomas, scribed for Tee Vela MD on 01/11/17 at 1745 . Psychiatric Complaint - HPI Summary HPI Summary: The patient is a 26 y/o F who presents to the ED with SI. However, when asked about she denies this and says I always say that, referencing her Hx of anxiety, depression, and bipolar disorder. Today at 04:00, she was attempting to use heroin intravenously and missed a vein in her right forearm. She had immediate onset of pain. She denies SOB or any other complaints. She has been using IV heroin for the last month. Prior to her heroin use, the patient initially was taking opioid pills and was then on suboxone, but she stopped suboxone after she said that they were giving her side effects that she could not cope with. - History Of Current Complaint Chief Complaint: EDMentalHealth Time Seen by Provider: 01/11/17 16:36 Hx Obtained From: Patient Hx Last Menstrual Period: Nexplanon Onset/Duration: Resolved Timing: Constant Severity Currently: None Character: Depressed Aggravating Factor(s): Nothing Alleviating Factor(s): Nothing Has Suicidal: Reports: Thoughts - none in the ED at time of examination - Allergies/Home Medications Allergies/Adverse Reactions: Allergies Allergy/AdvReac Type Severity Reaction Status Date / Time Amoxicillin [From Augmentin] Allergy Hives Verified 11/20/16 06:45 Clavulanic Acid Allergy Hives Verified 11/20/16 06:45 [From Augmentin] Penicillins Allergy Hives Verified 11/20/16 06:45 CAT Allergy Hives Uncoded 11/20/16 06:45 PMH/Surg Hx/FS Hx/Imm Hx Previously Healthy: No Endocrine/Hematology History: Denies: Hx Diabetes, Hx Thyroid Disease Cardiovascular History: Reports: Other Cardiovascular Problems/Disorders - HEART MURMUR Denies: Hx Hypertension Respiratory History: Denies: Hx Asthma, Hx Chronic Obstructive Pulmonary Disease (COPD) GI History: Reports: Hx Crohn's Disease - possible, Hx Gastrointestinal Bleed Denies: Hx Ulcer History: Reports: Other Problems/Disorders - hematuria Psychiatric History: Reports: Hx Anxiety, Hx Depression, Hx Bipolar Disorder - sees mental health, Hx Substance Abuse Denies: Hx Eating Disorder, Hx of Violent Episodes Against Others - Surgical History Surgery Procedure, Year, and Place: 06/14/14 - Immunization History Date of Tetanus Vaccine: unk Date of Influenza Vaccine: unk Infectious Disease History: No Infectious Disease History: Denies: Hx Clostridium Difficile, Hx Hepatitis, Hx Human Immunodeficiency Virus (HIV), Hx of Known/Suspected MRSA, Hx Shingles, Hx Tuberculosis, Hx Known/ Suspected VRE, Hx Known/Suspected VRSA, History Other Infectious Disease, Traveled Outside the [place] in Last 30 Days - Family History Known Family History: Positive: Hypertension, Diabetes, Other - COLON and CERVICAL CA Negative: Cardiac Disease - Social History Alcohol Use: Rare Hx Substance Use: Yes Substance Use Type: Reports: Prescribed Substance Use Comment - Amount & Last Used: opiates now Hx Tobacco Use: Yes Smoking Status (MU): Light Every Day Tobacco Smoker Type: Cigarettes Amount Used/How Often: 1/2 PPD Length of Time of Smoking/Using Tobacco: 6 YEARS Have You Smoked in the Last Year: Yes Review of Systems Negative: Fever, Chills Negative: Erythema - eyes Negative: Sore Throat Negative: Chest Pain Negative: Shortness Of Breath, Cough Negative: Abdominal Pain, Vomiting, Nausea Negative: dysuria, hematuria Negative: Myalgia, Edema - legs Positive: Other - Missed vein in right forearm. Negative: Rash Neurological: Other - NEGATIVE: dizziness Psychological: Other - POS: SI (though none at time of examination) All Other Systems Reviewed And Are Negative: Yes Physical Exam - Summary Physical Exam Summary: Constitutional: Well-developed, Well-nourished, Alert. (-) Distressed Skin: Warm, Dry. There is redness on her right forearm 2cm x 5cm in area. HENT: Normocephalic; Atraumatic Eyes: Conjunctiva normal Neck: Musculoskeletal ROM normal neck. (-) JVD, (-) Stridor, (-) Tracheal deviation Cardio: Rhythm regular, rate normal, Heart sounds normal; Intact distal pulses; The pedal pulses are 2+ and symmetric. Radial pulses are 2+ and symmetric. (-) Murmur Pulmonary/Chest wall: Effort normal. (-) Respiratory distress, (-) Wheezes, (-) Rales Abd: Soft, (-) Tenderness, (-) Distension, (-) Guarding, (-) Rebound Musculoskeletal: (-) Edema Lymph: (-) Cervical adenopathy Neuro: Alert, Oriented x3 Psych: Mood and affect Normal Triage Information Reviewed: Yes Vital Signs On Initial Exam: Initial Vitals Temp Pulse Resp BP Pulse Ox 98.5 F 78 18 128/74 98 01/11/17 16:32 01/11/17 16:32 01/11/17 16:32 01/11/17 16:32 01/11/17 16:32 Vital Signs Reviewed: Yes Diagnostics - Vital Signs Vital Signs Temp Pulse Resp BP Pulse Ox 01/11/17 16:32 98.5 F 78 18 128/74 98 - Laboratory Result Diagrams: 01/11/17 17:03 01/11/17 17:03 Lab Statement: Any lab studies that have been ordered have been reviewed, and results considered in the medical decision making process. - Additional Comments Diagnostic Additional Comments: DVT RUE. Interpreted by radiologist. Impression: SLIGHTLY LIMITED EXAM, NO EVIDENCE FOR DEEP VENOUS THROMBOSIS. Course/Dx - Course Assessment/Plan: The patient is a 26 y/o F who presents to the ED with SI. However, when asked about she denies this and says I always say that, referencing her Hx of anxiety, depression, and bipolar disorder. Today at 04:00 , she was attempting to use heroin intravenously and missed a vein in her right forearm. She had immediate onset of pain. She denies SOB or any other complaints. She has been using IV heroin for the last month. Prior to her heroin use, the patient initially was taking opioid pills and was then on suboxone, but she stopped suboxone after she said that they were giving her side effects that she could not cope with. Bloodwork was obtained. UA shows 1+ protein, 2+ leukocyte esterase, 2+ WBC, 1+ RBC, present amorphous crystals. Urine toxicology shows positive for opiates and cocaine. DVT RUE shows SLIGHTLY LIMITED EXAM, NO EVIDENCE FOR DEEP VENOUS THROMBOSIS. She is diagnosed with phlebitis and SI. The patient is signed out to Dr. Ruvalcaba pending E. - Differential Dx/Clinical Impression Provider Diagnosis: Phlebitis Discharge - Discharge Plan Condition: Fair Disposition: OTHER Discharge Disposition Comment: Signed out to Dr. Ruvalcaba pending E The documentation as recorded by the Bert knutson Thomas accurately reflects the service I personally performed and the decisions made by me, Tee Vela MD.
--- NOTE | 2017-01-15 05:47 | ED ---
Conrado Nazario Alfonso, scribed for Jeremy Ruvalcaba MD on 01/11/17 at 2334 . Progress - Progress Note Progress Note: This patient was signed out from Dr. Vela, pending disposition, awaiting MHE. Patient medically cleared for MHE at 2007. After MHE, the patients condition is deemed stable and she will be discharged to home. - Consult/PCP Time Called: 20:00 Course/Dx - Diagnoses Provider Diagnoses: Phlebitis The documentation as recorded by the Conrado knutson Alfonso accurately reflects the service I personally performed and the decisions made by Peg staley William, MD.
== END ==
LOC: ED 16:24
DX: I80.9 Phlebitis and thrombophlebitis of unspecified site (principal)
CPT/HCPCS: 36415; 80053; 80307; 80320; 80329; 81003; 81015; 84443; 85025; 87086; 99285; A9270-GY; G0480

== ENCOUNTER 2017-04-19 13:52 | Emergency (ER) | payer BC, MEDICAID ==
[2017-04-19 14:07] VITALS: BP 121/58
--- NOTE | 2017-04-19 14:13 | UC ---
Throat Pain/Nasal Denny HPI - HPI Summary HPI Summary: Pt presents with ST. She tells me that about 1 week ago she developed a sore throat. Over the last couple of days has developed body aches, fatigue, dry cough, and sinus congestion. She has not been taking anything OTC. Has felt feverish at times, but has not taken her temperature. She had one instance of mild blood tinged sputum/saliva 2 days ago, but none since - admits that it is very dry in her home and thinks that's what it was from. She also tells me that this morning she developed tongue pain and noticed white patches on her tongue. Denies SOB, chest pain, abdominal pain, N/V/D/C, dizziness, or dysuria. - History of Current Complaint Chief Complaint: UCGeneralIllness Stated Complaint: SORE THROAT COUGH Time Seen by Provider: 04/19/17 14:13 Hx Obtained From: Patient Hx Last Menstrual Period: Implanon Onset/Duration: Gradual Onset Severity: Moderate Pain Intensity: 8 Pain Scale Used: 0-10 Numeric Cough: Nonproductive - Allergies/Home Medications Allergies/Adverse Reactions: Allergies Allergy/AdvReac Type Severity Reaction Status Date / Time Amoxicillin [From Augmentin] Allergy Hives Verified 04/19/17 14:07 Clavulanic Acid Allergy Hives Verified 04/19/17 14:07 [From Augmentin] Penicillins Allergy Hives Verified 04/19/17 14:07 CAT Allergy Hives Uncoded 04/19/17 14:07 Home Medications: Home Medications Flexeril 10 MG TAB* 10 mg PO TID 04/19/17 [History Confirmed 04/19/17] Meloxicam [Mobic] 15 mg PO DAILY 04/19/17 [History Confirmed 04/19/17] OLANzapine TAB* [Zyprexa 5 MG TAB*] 10 mg PO BEDTIME 04/19/17 [History Confirmed 04/19/17] OXcarbazepine TAB(*) [Trileptal 300 mg TAB(*)] 300 mg PO DAILY 04/19/17 [ History Confirmed 04/19/17] Omeprazole CAP* [Prilosec CAP* 20 MG] 20 mg PO DAILY 04/19/17 [History Confirmed 04/19/17] SUMAtriptan TAB* [Imitrex TAB*] 50 mg PO DAILY 04/19/17 [History Confirmed 04/19] tiZANidine TAB* [Zanaflex TAB*] 6 mg PO TID 04/19/17 [History Confirmed 04/19/17 ] PMH/Surg Hx/FS Hx/Imm Hx Psychological History: Anxiety, Depression Other History Of: Hepatitis C - Surgical History Surgical History: Yes Surgery Procedure, Year, and Place: 06/14/14 - Family History Known Family History: Positive: Hypertension, Diabetes, Other - COLON and CERVICAL CA Negative: Cardiac Disease - Social History Alcohol Use: None Substance Use Type: None Substance Use Comment - Amount & Last Used: opiates now Smoking Status (MU): Heavy Every Day Tobacco Smoker Type: Cigarettes Amount Used/How Often: 1/2 PPD Length of Time of Smoking/Using Tobacco: 6 YEARS Have You Smoked in the Last Year: Yes Household Exposure Type: Cigarettes Cessation Counseling: Counseled 3+Min - 10 Min - Immunization History Most Recent Influenza Vaccination: NOT UTD Review of Systems Constitutional: Fever, Fatigue, Other - Body aches Skin: Negative Eyes: Negative ENT: Sore Throat, Nasal Discharge, Sinus Congestion, Sinus Pain/Tenderness Respiratory: Cough Cardiovascular: Negative Gastrointestinal: Negative Neurological: Negative Psychological: Negative All Other Systems Reviewed And Are Negative: Yes Physical Exam Triage Information Reviewed: Yes Appearance: Well-Nourished, Ill-Appearing Vital Signs: Initial Vital Signs Temp 98.9 F 04/19/17 14:01 Pulse 105 04/19/17 14:01 Resp 20 04/19/17 14:01 BP 121/58 04/19/17 14:01 Pulse Ox 100 04/19/17 14:01 Vital Signs Reviewed: Yes Eyes: Positive: Conjunctiva Clear. Negative: Conjunctiva Inflamed, Discharge ENT: Positive: Hearing grossly normal, Pharyngeal erythema, Nasal congestion, Nasal drainage, TMs normal, Tonsillar swelling - 3+, Tonsillar exudate, Sinus tenderness, Uvula midline, Other - There are scattered white patches on the tongue. No buccal lesions, bleeding, or drainage.. Negative: TM bulging, TM dull, TM red, Muffled voice, Hoarse voice Neck: Positive: Supple, Other: - Left cervical lymphadenopathy. TTP in this region. Respiratory: Positive: Chest non-tender, Lungs clear, Normal breath sounds, No respiratory distress, No accessory muscle use Cardiovascular: Positive: No Murmur, Pulses Normal Abdomen Description: Positive: Nontender, No Organomegaly, Soft. Negative: CVA Tenderness (R), CVA Tenderness (L), Distended, Guarding, Hepatomegaly, Splenomegaly Bowel Sounds: Positive: Present Neurological: Positive: Alert Psychological: Positive: Age Appropriate Behavior Skin: Negative: rashes Throat Pain/Nasal Course/Dx - Course Course Of Treatment: POC strep and influenza negative. Suspect viral illness vs mono. Offered to test for mono today, but pt declined. Will treat oral thrush with Nystain swish and swallow. Tonsillitis/sinusitis - zpak and prednisone. Advised follow up with PCP in 1 week. - Differential Dx/Diagnosis Differential Diagnosis/HQI/PQRI: Influenza, Mononucleosis, Otitis Media, Peritonsillar Abscess, Pharyngitis, Sinusitis, Tonsillitis, URI Provider Diagnoses: Oral thrush. Tonsillitis. Sinusitis. Generalized Body aches Discharge - Discharge Plan Condition: Stable Disposition: HOME Prescriptions: Azithromycin TAB* [Zithromax TAB (Z-TO) 250 mg #6 tabs] 2 tab PO .TODAY, THEN 1 DAILY #1 to Nystatin SUSPENSION ORAL SYR* 4 ml PO QID #112 ml predniSONE TAB* [Deltasone TAB*] 40 mg PO DAILY #10 tab Patient Education Materials: Oral Candidiasis (ED), Tonsillitis (ED) Forms: *Work Release Referrals: Rosa ARAUZ,Cindy Lynn [Primary Care Provider] - Additional Instructions: If you develop a fever, shortness of breath, chest pain, new or worsening symptoms - please call your PCP or go to the ED. Your blood pressure was high at todays visit. Please see your primary provider within 4 weeks for recheck and re-evaluation.
== END 2017-04-19 15:15 | disposition home or self-care (01) ==
LOC: UCEAST 13:52
DX: J03.90 Acute tonsillitis, unspecified (principal); B37.0 Candidal stomatitis; J32.9 Chronic sinusitis, unspecified; R52 Pain, unspecified; Z88.0 Allergy status to penicillin; Z88.1 Allergy status to other antibiotic agents; Z91.09 Other allergy status, other than to drugs and biological substances; F17.210 Nicotine dependence, cigarettes, uncomplicated
CPT/HCPCS: 87502; 87651; 99212; G0463

== ENCOUNTER 2017-05-11 17:37 | Emergency (ER) | payer BC, MEDICAID ==
[2017-05-11 18:00] VITALS: BP 132/68
--- NOTE | 2017-05-11 19:06 | UC ---
Scotty Nazario Natalie, scribed for Jeremy Ruvalcaba MD on 05/11/17 at 1847 . Back Pain HPI - HPI Summary HPI Summary: The pt is a 27 y/o F presenting to UC c/o left back and flank pain starting a week ago and worsening since. The pain started in LUQ and has started to radiate to low and mid back. The pain is described as becoming unbearable. The pain is rated 8/10. The pain is aggravated by eating and is alleviated by nothing. Pt additionally c/o chills. Pt denies fever, dysuria, abnormal BM, decreased appetite, and low abd pain. She has hx of IBS, but this pain is described as worse than ever before. - History of Current Complaint Chief Complaint: UCGU Stated Complaint: BACK PAIN Time Seen by Provider: 05/11/17 18:01 Hx Obtained From: Patient Hx Last Menstrual Period: 04/03 Onset/Duration: Lasting Days - started a week ago and worsening since, Still Present Timing: Lasting Days Severity Initially: Moderate Severity Currently: Severe Pain Intensity: 8 Pain Scale Used: 0-10 Numeric Back Pain: Is Discrete @ - from midline radiating to left flank and abd Aggravating Factor(s): Other - eating Alleviating Factor(s): Nothing Associated Signs And Symptoms: Positive: Abdominal Pain, Flank Pain, Other - POSITIVE: chills; NEGATIVE: fever, dysuria, abnormal BM, decreased appetite, low abd pain - Allergies/Home Medications Allergies/Adverse Reactions: Allergies Allergy/AdvReac Type Severity Reaction Status Date / Time Amoxicillin [From Augmentin] Allergy Hives Verified 05/11/17 17:54 Clavulanic Acid Allergy Hives Verified 05/11/17 17:54 [From Augmentin] Penicillins Allergy Hives Verified 05/11/17 17:54 CAT Allergy Hives Uncoded 05/11/17 17:54 Home Medications: Home Medications Amitriptyline TAB* 50 mg PO DAILY 05/11/17 [History Confirmed 05/11/17] Baclofen TAB* 10 mg PRN 05/11/17 [History] Cyclobenzaprine TAB* 10 mg PO TID 05/11/17 [History Confirmed 05/11/17] Hydroxyzine Pamoate 50 mg PO Q6HR PRN 05/11/17 [History Confirmed 05/11/17] Meloxicam 15 mg 05/11/17 [History] Multi Vitamin 05/11/17 [History] Naltrexone TAB* 05/11/17 [History] OLANzapine TAB* 5 mg PO DAILY 05/11/17 [History Confirmed 05/11/17] OXcarbazepine TAB(*) 300 mg PO BID 05/11/17 [History Confirmed 05/11/17] Omeprazole CAP* 20 mg PO DAILY 05/11/17 [History Confirmed 05/11/17] Ropinirole TAB* 0.25 mg 05/11/17 [History] SUMAtriptan TAB* 50 mg PO PRN 05/11/17 [History] traZODone TAB* 100 mg PO 05/11/17 [History] PMH/Surg Hx/FS Hx/Imm Hx Other History Of: Hepatitis C - Surgical History Surgical History: Yes Surgery Procedure, Year, and Place: 06/14/14 - Family History Known Family History: Positive: Hypertension, Diabetes, Other - COLON and CERVICAL CA Negative: Cardiac Disease - Social History Alcohol Use: None Substance Use Type: None Substance Use Comment - Amount & Last Used: opiates now Smoking Status (MU): Heavy Every Day Tobacco Smoker Type: Cigarettes Amount Used/How Often: 1/2 PPD Length of Time of Smoking/Using Tobacco: 6 YEARS Have You Smoked in the Last Year: Yes Household Exposure Type: Cigarettes - Immunization History Most Recent Influenza Vaccination: NOT UTD Review of Systems Constitutional: Chills, Other - NEGATIVE: fever Gastrointestinal: Abdominal Pain - LUQ, Other - NEGATIVE: abnormal BM, decreased appetite Genitourinary: Other - NEGATIVE: dysuria All Other Systems Reviewed And Are Negative: Yes Physical Exam Triage Information Reviewed: Yes Appearance: Well-Appearing, Pain Distress - mild Vital Signs: Initial Vital Signs Temp 99.3 F 05/11/17 17:55 Pulse 113 05/11/17 17:55 Resp 20 05/11/17 17:55 BP 132/68 05/11/17 17:55 Pulse Ox 100 05/11/17 17:55 Vital Signs Reviewed: Yes Eye Exam: Normal ENT: Positive: Normal ENT inspection Neck: Positive: Supple, Nontender Respiratory: Positive: Other: - CTA, breath sounds present Cardiovascular: Positive: RRR Abdomen Description: Positive: Other: - tender to palpitation in left flank, LUQ , left abd, left epigastrium, nontender in RLQ Bowel Sounds: Positive: Present Musculoskeletal Exam: Normal Musculoskeletal: Positive: Strength Intact, ROM Intact Neurological: Positive: Other: - normal, sensory/motor intact, A&O x3 Psychological: Positive: Other: - affect/mood appropriate Skin: Positive: Other - warm, color reflects adequate perfusion, dry Back Pain Course/Dx - Course Course Of Treatment: Medications reviewed. Allergies noted. DISCUSSED FURTHER EVAL AT ED FOR EVALUATION WITH ACCESS TO U/S, CT WITH CONTRAST AND LABS THAT WILL RETURN TODAY. - Differential Dx/Diagnosis Provider Diagnoses: ABDOMINAL PAIN. FLANK PAIN Discharge - Discharge Plan Condition: Stable Disposition: HOME Patient Education Materials: Acute Abdominal Pain (ED), Flank Pain (ED) Referrals: Rosa ARAUZ,Cindy Lynn [Primary Care Provider] - Additional Instructions: GO DIRECTLY TO THE EMERGENCY DEPARTMENT FOR FURTHER EVALUATION OF YOUR ABDOMINAL PAIN. The documentation as recorded by the Scotty knutson Natalie accurately reflects the service I personally performed and the decisions made by me, Jeremy Ruvalcaba MD.
== END 2017-05-11 18:33 | disposition home or self-care (01) ==
LOC: UCEAST 17:37
DX: R10.9 Unspecified abdominal pain (principal); F17.210 Nicotine dependence, cigarettes, uncomplicated; Z88.3 Allergy status to other anti-infective agents; Z88.0 Allergy status to penicillin
CPT/HCPCS: 99212; G0463

== ENCOUNTER 2017-05-11 18:49 | Emergency (ER) | payer BC, MEDICAID ==
[2017-05-11 21:42] LABS: ABS Basophils 0 10^3/ul (0-0.2); ABS Eosinophils 0.6 10^3/ul (0-0.6); ABS Lymphocytes 3.5 10^3/ul (1.0-4.8); ABS Monocytes 0.6 10^3/ul (0-0.8); ABS Neutrophils 6.3 10^3/ul (1.5-7.7); ABS Nucleated RBC 0 10^3/ul; Eosinophil % 5.9 % (0-6); Hematocrit 38 % (35-47); Hemoglobin 12.4 g/dl (12.0-16.0); Lymphocyte % 31.7 % (25-47); Mean Corpuscular HGB Conc 33 g/dl (31-36); Mean Corpuscular Hemoglobin 28 pg (27-31); Mean Corpuscular Volume 85 fL (80-97); Mean Platelet Volume 8 um3 (7.4-10.4); Nucleated Red Blood Cells % 0; Platelet Count 333 10^3/ul (150-450); Red Blood Count 4.39 10^6/ul (4.0-5.4); Red Cell Distribution Width 14 % (10.5-15)
[2017-05-11 21:50] LABS: EGFR Non-African American 113.1 (>60)
[2017-05-11 21:53] LABS: Urine Appearance Cloudy; Urine Blood 2+ (Negative); Urine Color Yellow; Urine Ketones Negative (Negative); Urine Protein Negative (Negative); Urine Urobilinogen Negative (Negative)
[2017-05-11] MEDS ORDERED: Bupivacaine 0.5% SDV PF* 10-30ML VIAL ONE (22:37)
[2017-05-11] MEDS ORDERED: Al Hydrox/Mg Hydrox/Simet LIQ* 30 ML UDC PO ONE (22:41)
[2017-05-11] MEDS ORDERED: Famotidine TAB* 20 MG PO ONE (22:41)
[2017-05-11] MEDS ORDERED: Ketorolac INJ* 30 MG/ML 1 ML VIAL IV PUSH ONE (22:43)
[2017-05-11] MEDS ORDERED: Ciprofloxacin TAB* 500 MG PO ONE (22:43)
[2017-05-12 00:56] VITALS: BP 133/89
--- NOTE | 2017-05-12 04:09 | ED ---
Ambrose Nazario Julia, scribed for Garry Batista MD on 05/11/17 at 2228 . Abdominal Pain/Female - HPI Summary HPI Summary: This patient is a 27 year old F presenting to [facility] with a chief complaint of worsening L flank and L abdominal pain for the past week . Patient reports heartburn and rapid weight gain (10 pounds in a week). Patient denies fever, dysuria, or bowel symptoms. Pt states are not similar to previous back pain.The patient rates the pain 9/10 in severity. Pt takes Myolaxin, Flexeril, and Baclofen for chronic back pain and muscle spasms. - History of Current Complaint Chief Complaint: EDAbdPain Stated Complaint: BACK & ABD PAIN-SENT FROM Time Seen by Provider: 05/11/17 22:07 Hx Obtained From: Patient Hx Last Menstrual Period: 04/03 has Nexplanon implant Onset/Duration: Lasting Weeks Timing: Constant Pain Intensity: 9 Pain Scale Used: 0-10 Numeric Location: Discrete At: LUQ, Discrete At: LLQ, Flank - L Radiates: Yes Radiates to: Flank Associated Signs and Symptoms: Positive: Other: - heartburn and rapid weight gain Allergies/Adverse Reactions: Allergies Allergy/AdvReac Type Severity Reaction Status Date / Time Amoxicillin [From Augmentin] Allergy Hives Verified 05/11/17 17:54 Clavulanic Acid Allergy Hives Verified 05/11/17 17:54 [From Augmentin] Penicillins Allergy Hives Verified 05/11/17 17:54 CAT Allergy Hives Uncoded 05/11/17 17:54 PMH/Surg Hx/FS Hx/Imm Hx Endocrine/Hematology History: Denies: Hx Diabetes, Hx Thyroid Disease Cardiovascular History: Reports: Other Cardiovascular Problems/Disorders - HEART MURMUR Denies: Hx Hypertension, Hx Pacemaker/ICD Respiratory History: Denies: Hx Asthma, Hx Chronic Obstructive Pulmonary Disease (COPD) GI History: Reports: Hx Crohn's Disease - possible, Hx Gastrointestinal Bleed Denies: Hx Ulcer History: Reports: Other Problems/Disorders - hematuria Denies: Hx Renal Disease Musculoskeletal History: Reports: Hx Back Problems - muscle spasms Sensory History: Denies: Hx Hearing Aid Psychiatric History: Reports: Hx Anxiety, Hx Depression, Hx Panic Disorder - ANXIETY/DEPRESSION, Hx Bipolar Disorder - sees mental health, Hx Substance Abuse Denies: Hx Eating Disorder, Hx of Violent Episodes Against Others - Surgical History Surgery Procedure, Year, and Place: 06/14/14 - Immunization History Date of Tetanus Vaccine: unk Date of Influenza Vaccine: unk Infectious Disease History: No Infectious Disease History: Denies: Hx Clostridium Difficile, Hx Hepatitis, Hx Human Immunodeficiency Virus (HIV), Hx of Known/Suspected MRSA, Hx Shingles, Hx Tuberculosis, Hx Known/ Suspected VRE, Hx Known/Suspected VRSA, History Other Infectious Disease, Traveled Outside the [place] in Last 30 Days - Family History Known Family History: Positive: Hypertension, Diabetes, Other - COLON and CERVICAL CA Negative: Cardiac Disease - Social History Alcohol Use: None Hx Substance Use: Yes Substance Use Type: Reports: None Substance Use Comment - Amount & Last Used: opiates now Hx Tobacco Use: Yes Smoking Status (MU): Heavy Every Day Tobacco Smoker Type: Cigarettes Amount Used/How Often: 1/2 PPD Length of Time of Smoking/Using Tobacco: 6 YEARS Have You Smoked in the Last Year: Yes Review of Systems Positive: Other - weight gain. Negative: Fever Positive: Abdominal Pain - L sided, Other - hearburn Positive: flank pain. Negative: dysuria All Other Systems Reviewed And Are Negative: Yes Physical Exam - Summary Physical Exam Summary: Appearance: Well appearing, no pain distress Skin: warm, dry, reflects adequate perfusion Head/face: normal Eyes: EOMI, PRISCILA ENT: normal Neck: supple, non-tender Respiratory: CTA, breath sounds present Cardiovascular: RRR, pulses symmetrical Abdomen: LUQ tenderness, soft Bowel: present Musculoskeletal: muscular back pain, strength/ROM intact Neuro: normal, sensory motor intact, A&Ox3 Triage Information Reviewed: Yes Vital Signs On Initial Exam: Initial Vitals Temp Pulse Resp BP Pulse Ox 99.9 F 111 18 132/71 100 05/11/17 18:52 05/11/17 18:52 05/11/17 18:52 05/11/17 18:52 05/11/17 18:52 Vital Signs Reviewed: Yes Procedures - Procedure Summary Procedure Summary: Trigger Point Injection: Re: L lumbar muscular pain Desc: The L paralumbar musculature was cleaned with chloroprep. It was injected in divided aliquots with a total of 10cc of 0.5% bupivicaine. The med was massaged thru the tissues and provided excellent pain relief. Tolerated well without complications. Diagnostics - Vital Signs Vital Signs Temp Pulse Resp BP Pulse Ox 05/11/17 21:25 98.8 F 102 16 124/93 98 05/11/17 18:52 99.9 F 111 18 132/71 100 - Laboratory Lab Results: Lab Results 05/11/17 05/11/17 05/11/17 Range/Units 21:00 21:00 21:25 WBC 11.0 H (3.5-10.8) 10^3/ul RBC 4.39 (4.0-5.4) 10^6/ul Hgb 12.4 (12.0-16.0) g/dl Hct 38 (35-47) % MCV 85 (80-97) fL MCH 28 (27-31) pg MCHC 33 (31-36) g/dl RDW 14 (10.5-15) % Plt Count 333 (150-450) 10^3/ul MPV 8 (7.4-10.4) um3 Neut % (Auto) 56.8 (38-83) % Lymph % (Auto) 31.7 (25-47) % [place] % (Auto) 5.2 (1-9) % Eos % (Auto) 5.9 (0-6) % Baso % (Auto) 0.4 (0-2) % Absolute Neuts (auto) 6.3 (1.5-7.7) 10^3/ul Absolute Lymphs (auto) 3.5 (1.0-4.8) 10^3/ul Absolute Monos (auto) 0.6 (0-0.8) 10^3/ul Absolute Eos (auto) 0.6 (0-0.6) 10^3/ul Absolute Basos (auto) 0 (0-0.2) 10^3/ul Absolute Nucleated RBC 0 10^3/ul Nucleated RBC % 0 Sodium 135 (133-145) mmol/L Potassium 3.8 (3.5-5.0) mmol/L Chloride 101 (101-111) mmol/L Carbon Dioxide 28 (22-32) mmol/L Anion Gap 6 (2-11) mmol/L BUN 14 (6-24) mg/dL Creatinine 0.64 (0.51-0.95) mg/dL Est GFR ( Amer) 145.4 (>60) Est GFR (Non-Af Amer) 113.1 (>60) BUN/Creatinine Ratio 21.9 H (8-20) Glucose 80 (70-100) mg/dL Calcium 9.3 (8.6-10.3) mg/dL Total Bilirubin 0.30 (0.2-1.0) mg/dL AST 50 H (13-39) U/L ALT 81 H (7-52) U/L Alkaline Phosphatase 75 (34-104) U/L C-Reactive Protein < 1.00 (< 5.00) mg/L Total Protein 7.0 (6.4-8.9) g/dL Albumin 4.4 (3.2-5.2) g/dL Globulin 2.6 (2-4) g/dL Albumin/Globulin Ratio 1.7 (1-3) Lipase 24 (11.0-82.0) U/L Beta HCG, Quant < 0.60 mIU/mL Urine Color Yellow Urine Appearance Cloudy Urine pH 7.0 (5-9) Ur Specific [place] 1.010 (1.010-1.030) Urine Protein Negative (Negative) Urine Ketones Negative (Negative) Urine Blood 2+ H (Negative) Urine Nitrate Negative (Negative) Urine Bilirubin Negative (Negative) Urine Urobilinogen Negative (Negative) Ur Leukocyte Esterase 3+ H (Negative) Urine WBC (Auto) 3+(>20/hpf) H (Absent) Urine RBC (Auto) 1+(3-5/hpf) H (Absent) Ur Squamous Epith Cells Present H (Absent) Urine Bacteria 1+ H (Absent) Urine Yeast Present H (Absent) Urine Glucose Negative (Negative) Result Diagrams: 05/11/17 21:00 05/11/17 21:00 Lab Statement: Any lab studies that have been ordered have been reviewed, and results considered in the medical decision making process. - CT A/P CT Interpretation Completed By: Radiologist - There is a 4.6cm left adnexal cyst. negative for right or left urinary tract obstruction. Small nonobstructing reight renal stone. Large stool burdenbut no large or small bowel obstruction. Negative for diverticulitis or coliis. Ther is some sludge in a noninflammed nonthickened appendix. ED Physician has reviewed this report. Abdominal Pain Fem Course/Dx - Course Course Of Treatment: Pt presents with L flank and LUQ abdominal pain for the past week . Pt states symptoms are not similar to previous chronic back pain. Bloodwork is unremarkable. UA reveals a mild UTI. CT A/P indicative of constipation, no other acute findings. Pt is given Maalox, Marcain, Ciprofloxin , Pepcid, and Toradol for symptoms. Her back pain was resolved after trigger point injection. - Diagnoses Differential Diagnosis: Positive: Constipation, Diverticulitis, Pancreatitis, Renal Colic, Urinary Tract Infection, Other - gastritis Provider Diagnoses: Acute UTI, LUQ abdominal pain, Acute constipation, Chronic back pain Discharge - Discharge Plan Condition: Fair Disposition: HOME Prescriptions: Ciprofloxacin HCl [Cipro 500 MG TAB] 500 mg PO BID #10 tab Docusate Sodium [Colace] 100 mg PO BID #20 cap Polyethylene Glycol 3350* [Miralax*] 17 gm PO TID PRN #21 packet PRN Reason: Constipation Patient Education Materials: Constipation (ED), Urinary Tract Infection in Women (ED) Referrals: Rosa ARAUZ,Cindy Lynn [Primary Care Provider] - Additional Instructions: Drink plenty of natural fruit juices (apple/prune). Exercise/abd massage may help. High fiber diet. Return with fever, increased discomfort, worse or other concerns as discussed. The documentation as recorded by the Ambrose knutson Julia accurately reflects the service I personally performed and the decisions made by , Garry Batista MD.
--- NOTE | 2017-05-12 07:45 | RAD ---
INDICATION: Left flank abdominal pain. COMPARISON: Comparison is made with a prior CT of the abdomen and pelvis from June 19, 2014 and a prior pelvic ultrasound from November 19, 2016. TECHNIQUE: A CT scan of the abdomen and pelvis was performed without intravenous or oral contrast. Contiguous axial sections were obtained from the lung bases through the symphysis pubis. Images were reconstructed in the coronal and sagittal planes. FINDINGS: The lung bases are clear. No pleural effusion is present. The liver and spleen are within normal limits in size without significant focal abnormality on this noncontrast study. No calcified gallstones are seen. The pancreas appears to be within normal limits in size. The kidneys and adrenal glands are normal in size. There is a small 3 mm calculus in the midportion of the right kidney. No hydronephrosis is seen. No ureteral or bladder calculi are noted. The aorta is normal in caliber without significant calcific plaque. No significant enlarged retroperitoneal lymph nodes are seen. The stomach, small and large bowel appear nondistended. There are calcifications within the appendix consistent with appendicoliths. The appendix is normal in size without evidence evidence for inflammatory change. There is a moderate to large amount retained stool. There is mild descending and sigmoid diverticulosis without evidence for diverticulitis or colitis. The uterus is anteverted and normal in size. There is a left adnexal cyst measuring 4.4 x 4.0 x 3.6 cm in size most consistent with an ovarian cyst. No free intraperitoneal air or fluid is seen. There are No significant focal osseous abnormality is seen. IMPRESSION: 1. SMALL NONOBSTRUCTING RIGHT RENAL CALCULUS. 2. 4.4 CM LEFT OVARIAN CYST. RECOMMEND A FOLLOW-UP PELVIC ULTRASOUND FOR FURTHER EVALUATION. 3. MODERATE TO LARGE AMOUNT RETAINED STOOL.
== END 2017-05-12 00:56 | disposition home or self-care (01) ==
LOC: ED 18:49
DX: N39.0 Urinary tract infection, site not specified (principal); R10.12 Left upper quadrant pain; M54.9 Dorsalgia, unspecified; R10.84 Generalized abdominal pain; F17.210 Nicotine dependence, cigarettes, uncomplicated
CPT/HCPCS: 36415; 74176; 80053; 81003; 81015; 83690; 84702; 85025; 86140; 87040; 87086; 87491; 87591; 96374; 99283; A9270-GY; J1885

== ENCOUNTER 2017-05-25 19:20 | Emergency (ER) | payer BC, MEDICAID ==
--- OUTSIDE RECORDS SUMMARY | 2017-05-25 19:37 | XMS REPORT ---
:1990 External Reference #:[id number] Author Organization [facility] Address [address] [place] [address] Phone [phone] Care Team Providers Name Role Phone HCP given Primary Care Physician Unavailable Payers Type Date Identification Numbers Payment Provider Subscriber Commercial Policy Number: [id number] [place] Anitra Price Ind/Ppo/Hmo/Pos PayID: [id number] [address] [address] [place] [address] [facility] Policy Number: [id number] Medicaid Stephanie Price PayID: [id number] [address] [place] [address] Problems Date Description Provider Status Onset: 06/17/2016 Generalized abdominal pain Cindy Lee PA Active Onset: 06/17/2016 Hematuria syndrome Cindy Lee PA Active Onset: 06/17/2016 Bipolar disorder Cindy Lee PA Active Onset: 06/17/2016 Abnormal feces Cindy Lee PA Active Onset: 06/17/2016 Opioid dependence Cindy Lee PA Active Onset: 08/03/2016 Diarrhea Cindy Lee PA Active Onset: 09/09/2016 Tobacco user Cindy Lee PA Active Onset: 09/28/2016 Herpes simplex Cindy Lee PA Active Onset: 03/02/2017 Gastroesophageal reflux disease Cindy Lee PA Active Onset: 03/15/2017 Schizoaffective schizophrenia Cindy Lee PA Active Onset: 03/15/2017 Opioid dependence in remission Cindy Lee PA Active Onset: 04/06/2017 Viral hepatitis C Cindy Lee PA Active Onset: 05/17/2017 Anxiety state Cindy Lee PA Active Onset: 04/07/2017 Backache Cindy Lee PA Active Onset: 04/07/2017 Migraine without aura, not refractory Cindy Lee PA Active Family History Date Family Member(s) Problem(s) Comments General Cervical Cancer Mother, sister General Heart Problems Mother: right bundle branch blockage General High Blood Pressure Father General Mental Illness self: bipolar, anxiety, depression General Obesity Father General Stroke Grandparents Onset: (01/06/2016) Siblings 4 2 brothers, 2 sisters First Sister Drug Addiction crack cocaine Social History Type Date Description Comments Education 12/23/2015 left school in 10th gr no ged Marital Status Single Work Status Not Currently Working last worked 2015 Cigarette Use 03/02/2017 current cigarette smoker Cigarette Use 07/13/2016 currently smokes 1/2 Pack 6-7 cigarettes/day Daily ETOH Use Rarely consumes alcohol ETOH Use Occasionally consumes alcohol Recreational Drug Use 2016 Has Used Illegal Drugs In heroin, The Past cocaine--inpatient rehab at [facility] 01/2017 Smoking Light tobacco smoker (10 or fewer cigarettes/day) Recreational Drug Use 05/04/2017 Does Not Currently Use reviewed 05/04/17--No Illegal Drugs use since starting rehab 01/2017 Daily Caffeine Consumes Caffeine soda, coffee, tea Exercise Type/Frequency Exercises regularly Sun Exposure Does not use sunscreen Seat Belt/Car Seat Seat Belt Use - Yes Currently Active Patient is currently sexually active Age 1[address] [place] 16 Years Old STD's No STD History Sexual Hx text Uses control/Nexplanon Allergies, Adverse Reactions, Alerts Date Description Reaction Status Severity Comments 12/23/2015 Penicillins active hives 12/23/2015 Augmentin active hives, sob 06/01/2016 Amoxicillin active hives 06/01/2016 Cats active hives Medications Medication Date Status Form Strength Qnty SIG Indications Ordering Provider Lorazepam 05/17/ Active Tablets 1mg 60tab 1 tablet by F41.9 Sacha, 2017 s mouth up to Drew, two times a M.D. day as needed for anxiety/spasm s Ciprofloxacin 05/16/ Active Tablets 500mg 1 tab twice a Unknown HCL 2018 day x 7 Docusate Sodium 05/16/ Active Capsules 100mg 1 cap by Unknown 2018 mouth twice a day as needed for constipation Polyethylene 05/16/ Active Packet [id number] 1 capful in 8 Unknown Glycol 3350 2018 oz of water by mouth prn for constipation Diphenoxylate-A 05/04/ Active Tablets 2.5-0.025 120ta 1 tab by R19.7 Sacha tropine 2018 mg bs mouth every 6 Drew, hours as M.D. needed for diarrhea Acidophilus 03/15/ Active Capsules 60cap 1 tab po bid Silcoff, Extra Strength 2016 s Magda Russell Folic Acid-Vit 03/15/ Active Tablets 0.4-50-0. 30tab 1 tab po Silcoff, B6-Vit B12 2016 1mg s daily Magda Russell Multi Vitamin 03/15/ Active Tablets 30tab 1 tab po Silcoff, Daily 2017 s daily Magda Russell Olanzapine 03/14/ Active Tablets 5mg 60tab 2 tablet Silcoff, 2016 s every night Drew, at bedtime M.D. Vistaril 03/14/ Active Capsules 50mg 90cap 1 tab by Unknown 2017 s mouth up to 3x daily Trileptal 03/14/ Active Tablets 300mg 120ta 2 tab by Imancomeryl, 2017 bs mouth 2x/day Magda Russell Meloxicam 03/02/ Active Tablets 15mg 30tab take one R10.84 Sacha, 2016 s tablet by Drew mouth every M.D. day for pain M54.5 Naltrexone HCL 03/01/2017 Active Tablets 50mg 30tabs 1 tab by Silcoff, mouth daily [place], with food M.D. Amitriptyline HCL 03/01/2017 Active Tablets 50mg 30tabs 1 tab by Silcoff, mouth at [place], bedtime prn M.D. Mirtazapine 03/01/2017 Active Tablets 45mg 90tabs 1 by mouth F Sopchak, nightly 3 Bruno, 1 D.O. . 9 Sumatriptan 09/09/2016 Active Tablets 50mg 14tabs 1 tab by G Silcoff, Succinate mouth at 4 Drew, onset of 3 M.D. migraine, august . repeat x1 0 after 2 hours 0 if needed 9 Ropinirole HCL 07/29/2016 Active Tablets 0.25mg 30tabs 1 tab by G Silcoff, mouth at 2 [place], bedtime for 5 M.D. restless legs . 8 1 Nexplanon Active Implant 68mg placed 05/2014 Unknown Nystatin Active Suspension 279698 take 4 Unknown Unit/M milliliters L by mouth four times a day as directed Medrol 05/04/2017 - Hx TBPK 4mg 1units use as J Sacha, 05/16/2017 directed on 0 Drew, package 3 M.D. . 9 0 Cyclobenzaprine 04/07/2017 - Hx Tablets 10mg 90tabs 1 tab by Sacha, HCL 05/17/2017 mouth three Drew, times a day M.D. as needed for spasms Zanaflex 03/14/2017 - Hx Capsules 6mg 90caps 1 tab po up Unknown 04/07/2017 to tid prn Tizanidine HCL 03/02/2017 - Hx Capsules 6mg 30caps one tab by Sacha, 03/14/2017 mouth three Drew, times a day M.D. as needed for spasms Nicotine Step 2 03/02/2017 - Hx Patches 24HR 14mg/2 30units apply 1 patch F Sacha, 03/14/2017 4HR topically 1 Drew, daily 7 M.D. . 2 1 0 Omeprazole 03/02/2017 - Hx Capsules DR 20mg 30caps 1 by mouth [place] Goncalves , 03/14/2017 every day 2 Drew, 1 M.D. . 9 Tizanidine HCL 03/01/2017 - Hx Capsules 4mg 1 tab by Unknown 03/02/2017 mouth three times a day as needed spasms Trazodone HCL 03/01/2017 - Hx Tablets 100mg 1 tabs by Unknown 05/17/2017 mouth every night at bedtime for sleep Ondansetron HCL 03/01/2017 - Hx Tablets 4mg 1 by mouth Unknown 03/14/2017 every 4 hours as needed for nausea Oxcarbazepine 03/01/2017 - Hx Tablets 300mg 2 tabs po Unknown 03/14/2017 twice daily Clonidine HCL 01/15/2017 - Hx Tablets 0.3mg 60tabs 1 tab po bid F Sopchak, 03/01/2017 3 Bruno, 1 D.O. . 9 F11.20 Meloxicam 12/29/2016 - Hx Tablets 7.5mg 60tabs 1 tab by R10.84 Sacha, 03/02/2017 mouth up Drew, to twice M.D. daily as needed for pain Chlorzoxazone 12/29/2016 - Hx Tablets 500mg 90tabs 1 tab by M54.9 Sacha, 03/01/2017 mouth Drew, three M.D. times a day as needed spasms Orphenadrine 12/08/2016 - Hx Tablets ER 100mg 60tabs take 1 M54.9 Rosa, Citrate ER 12/29/2016 12HR tablet by KAVITA White mouth two times daily as needed for spasms Carisoprodol 12/07/2016 - Hx Tablets 250mg 90tabs 1 tab po M54.9 Rosa , 12/08/2016 every 8 KAVITA White hours as needed for muscle spasms Celecoxib 12/07/2016 - Hx Capsules 100mg 60caps 1 cap by R10.84 Rosa, 12/29/2016 mouth KAVITA White twice a day as needed for pain M54.9 Venlafaxine HCL 12/07/2016 - Hx Tablets 75mg 60tabs 1 by mouth F31.9 Rosa, 12/28/2016 twice a KAVITA White day Endocet 11/02/2016 - Hx Tablets 10-325mg 21tabs 1 tab po R10.84 Rosa, 11/02/2016 every 8 KAVITA White hours as needed for severe pain, max 3/day Meloxicam 11/02/2016 - Hx Tablets 7.5mg 60tabs 1 tab by R10.84 Rosa, 12/07/2016 mouth up KAVITA White to twice daily as needed for pain Clonidine HCL 11/02/2016 - Hx Tablets 0.2mg 60tabs 1 tab by F31.9 Imancomeryl, 01/15/2017 mouth Drew, twice a M.D. day F11.20 Hydroxyzine 11/02/2016 - Hx Capsules 100mg 120caps 1 tab by F31.9 Rosa, Pamoate 03/14/2017 mouth up to KAVITA White every 6 hours as needed for anxiety Cyclobenzaprine 11/02/2016 - Hx Tablets 10mg 90tabs 1 tab by F11.20 Hektor, HCL 12/07/2016 mouth up to KAVITA White three times a day as needed for spasms Valacyclovir HCL 10/20/2016 - Hx Tablets 1gm 14tabs 1 tab by A60.04 Rosa, 10/27/2016 mouth every KAVITA White 12 hours x7 days Metaxalone 10/20/2016 - Hx Tablets 800mg 90tabs 1 tab by F11.20 Rosa, 11/02/2016 mouth three KAVITA White times a day as needed spasms Ondansetron HCL 10/07/2016 - Hx Tablets 4mg 60tabs 1 tab by R10.84 Rosa, 01/14/2017 mouth twice KAVITA White a day as needed for nausea Diflucan 09/14/2016 - Hx Tablets 150mg 1tabs 1 tab by Rosa, 10/06/2016 mouth once KAVITA White for yeast infection Oxycodone HCL 08/17/2016 - Hx Tablets 10mg 90tabs 1 tablets R10.84 Rosa, 11/02/2016 by mouth KAVITA White two to three times a day as needed for severe pain Diphenoxylate-Atro 08/03/2016 - Hx Tablets 2.5-0.0 120tabs 1 tab by R19.7 Rosa pine 03/15/2017 25mg mouth every KAVITA White 6 hours as needed for diarrhea Clonidine HCL 08/03/2016 - Hx Tablets 0.2mg 30tabs 1 tab by F31.9 Rosa, 11/02/2016 mouth at KAVITA White night for anxiety F11.20 Hydroxyzine 08/03/2016 - Hx Tablets 10mg 90tabs 1 tab by mouth F31.9 Tedtor, HCL 11/02/2016 three times a day KAVITA White as needed for anxiety Oxycodone-Acet 08/03/2016 - Hx Tablets 10-325 60tabs 1 tab up to twice R10.84 Rosa aminophen 08/17/2016 mg daily as needed KAVITA White for pain Magic Mouth 07/31/2016 - Hx Diphenhydramine Unknown Wash 09/08/2016 liquid 5ml Maalox 60 ml Lidocaine 60 ml as needed up to four times a day Cefdinir 07/29/2016 - Hx Capsules 300mg 20caps 1 cap by mouth J02.0 Rosa, 08/08/2016 twice a day x10 KAVITA White days Hyoscyamine 07/28/2016 - Hx Tablets ER 0.375m 60tabs 1 tablet by mouth [place], Sulfate ER 09/08/2016 12HR g twice daily MD William Acetaminophen- 07/08/2016 - Hx Tablets 300-30 1 tab po every 6 Unknown Codeine #3 07/13/2016 mg hrs prn pain Cefdinir 07/08/2016 - Hx Capsules 300mg 1 cap po twice Unknown 07/28/2016 daily x 10 days Mirtazapine 06/24/2016 - Hx Tablets 30mg 30tabs 1 by mouth every F31.9 Silcoff, 03/01/2017 night at bedtime Magda Russell Oxycodone-Acet 06/24/2016 - Hx Tablets 5-325m 30tabs take 1 tablet up R10.84 [facility] aminophen 08/03/2016 g to 2 times a day KAVITA White as needed for pain Suboxone 05/20/2016 - Hx Film 8-2mg 1 by mouth every Unknown 06/23/2016 morning; suboxone prescriber# [id number] Clonidine HCL 05/20/2016 - Hx Tablets ER 0.1mg 30tabs 1 tab by mouth at [facility], ER 08/03/2016 12HR bedtime KAVITA White Diflucan 12/30/2015 - Hx Tablets 150mg 1tabs 1 tab by mouth [facility], 06/16/2016 once KAVITA White Metrogel-Vagin 12/30/2015 - Hx Gel 0.75% 70gm 1 applicatorful [facility], al 06/16/[address] vagina KAVITA White every night at bedtime x5 days No Active 12/23/2015 - Hx Unknown Medications 12/30/2015 Diphenoxylate- - Hx Tablets 2.5-0. take 2 tablets by R19.7 Unknown Atropine 03/14/2017 025mg mouth 4 times per day as needed for diarrhea Baclofen - Hx Tablets 10mg take 1 tablet by Unknown 05/17/2017 mouth three times a day Medications Administered in Office Medication Date Status Form Strength Qnty SIG Indications Ordering Provider SC/Im Administered Injection Jeremy AAdriana Godoy M.D. Immunizations CPT Code Status Date Vaccine Lot # [id number] Given 03/15/2017 Adacel or Boostrix, TDaP [id number] Vital Signs Date Vital Result Comment 05/17/2017 BP Systolic 126 mmHg BP Diastolic 68 mmHg Height 59.75 inches 4'11.75" Weight 131.00 lb BMI (Body Mass Index) 25.8 kg/m2 05/04/2017 BP Systolic 146 mmHg BP Diastolic 90 mmHg Body Temperature 97.7 F Weight 120.00 lb w/shoes 04/07/2017 BP Systolic 139 mmHg BP Diastolic 83 mmHg Heart Rate 107 /min Weight 120.00 lb w/shoes 03/15/2017 BP Systolic 114 mmHg BP Diastolic 70 mmHg 03/02/2017 BP Systolic 110 mmHg BP Diastolic 85 mmHg Weight 114.00 lb with shoes 01/15/2017 BP Systolic 79 mmHg BP Diastolic 51 mmHg Heart Rate 80 /min Weight 109.00 lb 12/29/2016 BP Systolic 104 mmHg BP Diastolic 80 mmHg Weight 106.00 lb 12/07/2016 BP Systolic 110 mmHg BP Diastolic 80 mmHg Height 59.75 inches 4'11.75" Weight 109.00 lb BMI (Body Mass Index) 21.5 kg/m2 11/02/2016 BP Systolic 102 mmHg BP Diastolic 82 mmHg Heart Rate 105 /min Weight 112.00 lb 10/20/2016 BP Systolic 102 mmHg BP Diastolic 72 mmHg Height 113 inches 9'5" 10/07/2016 BP Systolic 100 mmHg BP Diastolic 72 mmHg Weight 109.00 lb 09/09/2016 BP Systolic 126 mmHg BP Diastolic 60 mmHg Weight 103.00 lb 08/17/2016 BP Systolic 110 mmHg BP Diastolic 70 mmHg Weight 103.00 lb 08/03/2016 BP Systolic 118 mmHg BP Diastolic 70 mmHg Body Temperature 97.9 F Weight 106.00 lb 07/31/2016 BP Systolic 116 mmHg BP Diastolic 58 mmHg Body Temperature 98.5 F 07/29/2016 BP Systolic 115 mmHg BP Diastolic 65 mmHg Body Temperature 98.4 F Weight 107.00 lb with sneakers 07/13/2016 BP Systolic 110 mmHg BP Diastolic 80 mmHg Weight 104.00 lb 06/24/2016 BP Systolic 108 mmHg BP Diastolic 72 mmHg Weight 102.00 lb 06/17/2016 BP Systolic 118 mmHg BP Diastolic 80 mmHg Height 59.5 inches 4'11.50" Weight 104.00 lb BMI (Body Mass Index) 20.7 kg/m2 12/23/2015 BP Systolic 110 mmHg BP Diastolic 74 mmHg Heart Rate 80 /min Height 59 inches 4'11" Weight 96.00 lb BMI (Body Mass Index) 19.4 kg/m2 Results Test Date Test Result H/L Range Note Laboratory test finding 05/11/2017 Lipase 24 U/L 11.0-82.0 C Reactive Protein < 1.00 mg/L < 5.00 1 HCG < 0.60 mIU/mL 2 Blood Culture SEE RESULT BELOW 3 Comp Metabolic Panel 05/11/2017 Sodium 135 mmol/L 133-145 Potassium 3.8 mmol/L 3.5-5.0 Chloride 101 mmol/L 101-111 Co2 Carbon Dioxide 28 mmol/L 22-32 Anion Gap 6 mmol/L 2-11 Glucose 80 mg/dL 70-100 Blood Urea Nitrogen 14 mg/dL 6-24 Creatinine 0.64 mg/dL 0.51-0.95 BUN/Creatinine Ratio 21.9 High 8-20 Calcium 9.3 mg/dL 8.6-10.3 Total Protein 7.0 g/dL 6.4-8.9 Albumin 4.4 g/dL 3.2-5.2 Globulin 2.6 g/dL 2-4 Albumin/Globulin Ratio 1.7 1-3 Total Bilirubin 0.30 mg/dL 0.2-1.0 Alkaline Phosphatase 75 U/L 34-104 Alt 81 U/L High 7-52 Ast 50 U/L High 13-39 Egfr Non- 113.1 >60 Egfr 145.4 >60 4 Urinalysis Profile 05/11/2017 Urine Color Yellow Urine Appearance Cloudy Urine Specific Disney 1.010 1.010-1.030 Urine pH 7.0 5-9 Urine Urobilinogen Negative Negative Urine Ketones Negative Negative Urine Protein Negative Negative Urine Leukocytes 3+ Negative Urine Blood 2+ Negative Urine Nitrite Negative Negative Urine Bilirubin Negative Negative Urine Glucose Negative Negative Urine White Blood Cell 3+(>20/hpf) Absent Urine Red Blood Cell 1+(3-5/hpf) Absent Urine Bacteria 1+ Absent Urine Squamous Epithelial Cell Present Absent Urine Yeast Present Absent GC/Chlamydia Amplified Rna 05/11/2017 Chlamydia trachomatis Rna Negative Negative Neisseria gonorrhoeae (GC) Rna Negative Negative CBC Auto Diff 05/11/2017 White Blood Count 11.0 10^3/uL High 3.5-10.8 Red Blood Count 4.39 10^6/uL 4.0-5.4 Hemoglobin 12.4 g/dL 12.0-16.0 Hematocrit 38 % 35-47 Mean Corpuscular Volume 85 fL 80-97 Mean Corpuscular Hemoglobin 28 pg 27-31 Mean Corpuscular HGB Conc 33 g/dL 31-36 Red Cell Distribution Width 14 % 10.5-15 Platelet Count 333 10^3/uL 150-450 Mean Platelet Volume 8 um3 7.4-10.4 Abs Neutrophils 6.3 10^3/uL 1.5-7.7 Abs Lymphocytes 3.5 10^3/uL 1.0-4.8 Abs Monocytes 0.6 10^3/uL 0-0.8 Abs Eosinophils 0.6 10^3/uL 0-0.6 Abs Basophils 0 10^3/uL 0-0.2 Abs Nucleated RBC 0 10^3/uL Granulocyte % 56.8 % 38-83 Lymphocyte % 31.7 % 25-47 Monocyte % 5.2 % 1-9 Eosinophil % 5.9 % 0-6 Basophil % 0.4 % 0-2 Nucleated Red Blood Cells % 0 Laboratory test 05/11/2017 Urine Culture And SEE RESULT BELOW 5 finding Sensitivities Rapid Influenza A 04/19/2017 Influenza A Molecular NEGATIVE Negative 6 & B Molecular Influenza B Molecular NEGATIVE Negative Laboratory test finding 04/19/2017 Rapid Strep Molecular Negative Negative 7 Laboratory test finding 04/08/2017 Hepatitis C Rna Quant [id number] IU/mL Undetected 8 Hepatitis C Genotype 1a Undetected 9 HIV 1/2 AB Evaluation 04/08/2017 HIV 1 2 Antibody Nonreactive Nonreactive 10 Comp Metabolic Panel 04/05/2017 Sodium 138 mmol/L 133-145 Potassium 4.2 mmol/L 3.5-5.0 Chloride 106 mmol/L 101-111 Co2 Carbon Dioxide 27 mmol/L 22-32 Anion Gap 5 mmol/L 2-11 Glucose 107 mg/dL High 70-100 Blood Urea Nitrogen 18 mg/dL 6-24 Creatinine 0.71 mg/dL 0.51-0.95 BUN/Creatinine Ratio 25.4 High 8-20 Calcium 9.5 mg/dL 8.6-10.3 Total Protein 7.0 g/dL 6.4-8.9 Albumin 4.6 g/dL 3.2-5.2 Globulin 2.4 g/dL 2-4 Albumin/Globulin Ratio 1.9 1-3 Total Bilirubin 0.40 mg/dL 0.2-1.0 Alkaline Phosphatase 115 U/L High 34-104 Alt 293 U/L High 7-52 Ast 159 U/L High 13-39 Egfr Non- 100.3 >60 Egfr 129.0 >60 11 Hepatitis Acute Panel 04/05/2017 Hepatitis B Surface Nonreactive Nonreactive Antigen Hepatitis B Core IgM Nonreactive Nonreactive Hepatitis A AB IgM Nonreactive Nonreactive Hepatitis C Antibody High Reactive Nonreactive 12 CBC Auto Diff 04/04/2017 White Blood Count 8.3 10^3/uL 3.5-10.8 Red Blood Count 4.41 10^6/uL 4.0-5.4 Hemoglobin 12.6 g/dL 12.0-16.0 Hematocrit 37 % 35-47 Mean Corpuscular Volume 84 fL 80-97 Mean Corpuscular Hemoglobin 29 pg 27-31 Mean Corpuscular HGB Conc 34 g/dL 31-36 Red Cell Distribution Width 14 % 10.5-15 Platelet Count 279 10^3/uL 150-450 Mean Platelet Volume 8 um3 7.4-10.4 Abs Neutrophils 4.9 10^3/uL 1.5-7.7 Abs Lymphocytes 2.5 10^3/uL 1.0-4.8 Abs Monocytes 0.6 10^3/uL 0-0.8 Abs Eosinophils 0.3 10^3/uL 0-0.6 Abs Basophils 0 10^3/uL 0-0.2 Abs Nucleated RBC 0.01 10^3/uL Granulocyte % 58.7 % 38-83 Lymphocyte % 29.6 % 25-47 Monocyte % 7.1 % 1-9 Eosinophil % 4.1 % 0-6 Basophil % 0.5 % 0-2 Nucleated Red Blood Cells % 0.1 Laboratory test finding 04/04/2017 Hemoglobin A1c (Glyco HGB) 5.1 % 4.0- 5.6 13 Comp Metabolic Panel 04/04/2017 Sodium 133 mmol/L 133-145 Potassium 4.4 mmol/L 3.5-5.0 Chloride 102 mmol/L 101-111 Co2 Carbon Dioxide 27 mmol/L 22-32 Anion Gap 4 mmol/L 2-11 Glucose 102 mg/dL High 70-100 Blood Urea Nitrogen 15 mg/dL 6-24 Creatinine 0.63 mg/dL 0.51-0.95 BUN/Creatinine Ratio 23.8 High 8-20 Calcium 9.2 mg/dL 8.6-10.3 Total Protein 6.8 g/dL 6.4-8.9 Albumin 4.4 g/dL 3.2-5.2 Globulin 2.4 g/dL 2-4 Albumin/Globulin Ratio 1.8 1-3 Total Bilirubin 0.30 mg/dL 0.2-1.0 Alkaline Phosphatase 92 U/L 34-104 Alt 287 U/L High 7-52 Ast 176 U/L High 13-39 Egfr Non- 115.1 >60 Egfr 148.1 >60 14 Laboratory test finding 04/04/2017 Creatine Kinase(CK) 105 U/L 10-223 TSH (Thyroid Stim Horm) 0.88 mcIU/mL 0.34-5.60 Vitamin B12 984 pg/mL High 180-914 15 Ssa/SSB Abs Igg 04/04/2017 SS-A/Ro Antibody <0.2 U 16 SS-B/La Antibody <0.2 U 17 Connective Tissue Panel 04/04/2017 Anti-Nuclear Antibody 0.8 U 18 Cyclic Citrullinated Peptide <15.6 U 19 Interpretation See Comment 20 Laboratory test finding 04/04/2017 Lyme Disease Serology Negative Negative 21 CBC Auto Diff 01/11/2017 White Blood Count 9.6 10^3/uL 3.5-10.8 Red Blood Count 4.41 10^6/uL 4.0-5.4 Hemoglobin 12.5 g/dL 12.0-16.0 Hematocrit 38 % 35-47 Mean Corpuscular Volume 85 fL 80-97 Mean Corpuscular Hemoglobin 28 pg 27-31 Mean Corpuscular HGB Conc 33 g/dL 31-36 Red Cell Distribution Width 13 % 10.5-15 Platelet Count 284 10^3/uL 150-450 Mean Platelet Volume 8 um3 7.4-10.4 Abs Neutrophils 4.8 10^3/uL 1.5-7.7 Abs Lymphocytes 3.4 10^3/uL 1.0-4.8 Abs Monocytes 0.7 10^3/uL 0-0.8 Abs Eosinophils 0.6 10^3/uL 0-0.6 Abs Basophils 0.1 10^3/uL 0-0.2 Abs Nucleated RBC 0.01 10^3/uL Granulocyte % 49.6 % 38-83 Lymphocyte % 35.5 % 25-47 Monocyte % 7.8 % 1-9 Eosinophil % 6.4 % High 0-6 Basophil % 0.7 % 0-2 Nucleated Red Blood Cells % 0.1 Comp Metabolic Panel 01/11/2017 Sodium 137 mmol/L 133-145 Potassium 4.2 mmol/L 3.5-5.0 Chloride 105 mmol/L 101-111 Co2 Carbon Dioxide 27 mmol/L 22-32 Anion Gap 5 mmol/L 2-11 Glucose 90 mg/dL 70-100 Blood Urea Nitrogen 20 mg/dL 6-24 Creatinine 0.87 mg/dL 0.51-0.95 BUN/Creatinine Ratio 23.0 High 8-20 Calcium 9.3 mg/dL 8.6-10.3 Total Protein 7.0 g/dL 6.4-8.9 Albumin 4.1 g/dL 3.2-5.2 Globulin 2.9 g/dL 2-4 Albumin/Globulin Ratio 1.4 1-3 Total Bilirubin 0.30 mg/dL 0.2-1.0 Alkaline Phosphatase 63 U/L 34-104 Alt 25 U/L 7-52 Ast 22 U/L 13-39 Egfr Non- 80.0 >60 Egfr 102.9 >60 22 Laboratory test finding 01/11/2017 Acetaminophen < 15 g/mL 23 Alcohol < 10 mg/dL <10 Salicylate < 2.50 mg/dL <30 TSH (Thyroid Stim Horm) 1.01 mcIU/mL 0.34-5.60 Urine Drug SCR ED 01/11/2017 Amphetamine Ur Screen None Detected None Detect & [facility] Barbiturates Urine Screen None Detected None Detect Benzodiazepine Urine Screen None Detected None Detect Urine Cannabinoids Screen None Detected None Detect Urine Cocaine Screen Presumptive Posi <SEE NOTE> None Detect 24 Urine Opiates Screen Presumptive Posi <SEE NOTE> None Detect 25 Urine Phencyclidine Screen None Detected None Detect 26 Laboratory test finding 01/11/2017 Urine Culture And SEE RESULT BELOW 27 Sensitivities Urinalysis Profile 01/11/2017 Urine Color Alexsandra Urine Appearance Cloudy Urine Specific Disney 1.026 1.010-1.030 Urine pH 7.0 5-9 Urine Urobilinogen Negative Negative Urine Ketones Trace Negative Urine Protein 1+(30 mg/dL) Negative Urine Leukocytes 2+ Negative Urine Blood Negative Negative Urine Nitrite Negative Negative Urine Bilirubin Negative Negative Urine Glucose Negative Negative Urine White Blood Cell 2+(11-20/hpf) Absent Urine Red Blood Cell 1+(3-5/hpf) Absent Urine Bacteria Absent Absent Urine Squamous Epithelial Cell Present Absent Urine Amorphous Crystals Present Absent CBC Auto Diff 11/20/2016 White Blood Count 10.8 10^3/uL 3.5-10.8 Red Blood Count 4.62 10^6/uL 4.0-5.4 Hemoglobin 13.5 g/dL 12.0-16.0 Hematocrit 40 % 35-47 Mean Corpuscular Volume 87 fL 80-97 Mean Corpuscular Hemoglobin 29 pg 27-31 Mean Corpuscular HGB Conc 34 g/dL 31-36 Red Cell Distribution Width 12 % 10.5-15 Platelet Count 227 10^3/uL 150-450 Mean Platelet Volume 8 um3 7.4-10.4 Abs Neutrophils 5.4 10^3/uL 1.5-7.7 Abs Lymphocytes 3.7 10^3/uL 1.0-4.8 Abs Monocytes 0.6 10^3/uL 0-0.8 Abs Eosinophils 0.9 10^3/uL High 0-0.6 Abs Basophils 0.1 10^3/uL 0-0.2 Abs Nucleated RBC 0.01 10^3/uL Granulocyte % 50.0 % 38-83 Lymphocyte % 34.6 % 25-47 Monocyte % 5.9 % 1-9 Eosinophil % 8.7 % High 0-6 Basophil % 0.8 % 0-2 Nucleated Red Blood Cells % 0.1 Comp Metabolic Panel 11/20/2016 Sodium 138 mmol/L 133-145 Potassium 4.0 mmol/L 3.5-5.0 Chloride 106 mmol/L 101-111 Co2 Carbon Dioxide 24 mmol/L 22-32 Anion Gap 8 mmol/L 2-11 Glucose 101 mg/dL High 70-100 Blood Urea Nitrogen 8 mg/dL 6-24 Creatinine 0.63 mg/dL 0.51-0.95 BUN/Creatinine Ratio 12.7 8-20 Calcium 9.2 mg/dL 8.6-10.3 Total Protein 7.3 g/dL 6.4-8.9 Albumin 4.5 g/dL 3.2-5.2 Globulin 2.8 g/dL 2-4 Albumin/Globulin Ratio 1.6 1-3 Total Bilirubin 0.20 mg/dL 0.2-1.0 Alkaline Phosphatase 71 U/L 34-104 Alt 11 U/L 7-52 Ast 16 U/L 13-39 Egfr Non- 116.1 >60 Egfr 149.3 >60 28 Laboratory test finding 11/20/2016 Acetaminophen < 15 g/mL 29 Alcohol 77 mg/dL High <10 Salicylate < 2.50 mg/dL <30 TSH (Thyroid Stim Horm) 0.88 mcIU/mL 0.34-5.60 Urine Drug SCR ED 11/20/2016 Amphetamine Ur Screen None Detected None Detect & Pain Clinic Barbiturates Urine Screen None Detected None Detect Benzodiazepine Urine Screen None Detected None Detect Urine Cannabinoids Screen None Detected None Detect Urine Cocaine Screen Presumptive Posi <SEE NOTE> None Detect 30 Urine Opiates Screen None Detected None Detect Urine Phencyclidine Screen None Detected None Detect 31 Urinalysis Profile 11/20/2016 Urine Color Colorless Urine Appearance Clear Urine Specific Disney 1.002 Low 1.010-1.030 Urine pH 6.0 5-9 Urine Urobilinogen Negative Negative Urine Ketones Negative Negative Urine Protein Negative Negative Urine Leukocytes Negative Negative Urine Blood 1+ Negative Urine Nitrite Negative Negative Urine Bilirubin Negative Negative Urine Glucose Negative Negative Urine White Blood Cell Trace(0-5/hpf) Absent Urine Red Blood Cell Trace(0-2/hpf) Absent Urine Bacteria Absent Absent Urine Drug Screen Inhouse 11/02/2016 Ua Cocaine - Ua Opiates - Ua Amphetamines - Urine Methanphetamines - Urine Benzodiazepines QN [place] - Urine Oxycodone QL + Urine Drug Screen Inhouse 10/07/2016 Ua Cocaine - Ua Opiates - Ua Amphetamines - Urine Methanphetamines - Urine Benzodiazepines QN [place] - Urine Oxycodone QL + Laboratory test finding 09/09/2016 Culture Genital & SEE RESULT BELOW 32 Sensitivity Urine Drug Screen 09/09/2016 Ua Cocaine - Inhouse Ua Opiates + Ua Amphetamines - Urine Methanphetamines - Urine Benzodiazepines QN [place] - Urine Oxycodone QL + Urine Drug Screen Inhouse 08/03/2016 Ua Cocaine _ Ua Opiates + Ua Amphetamines _ Urine Methanphetamines _ Urine Benzodiazepines QN [place] _ Urine Oxycodone QL + Laboratory test finding 07/29/2016 Culture Throat Rapid Screen positive Urine Drug Screen Inhouse 07/13/2016 Ua Cocaine + Ua Opiates + Ua Amphetamines - Urine Methanphetamines - Urine Benzodiazepines QN [place] - Urine Oxycodone QL + Ua Inhouse 06/17/2016 Ua Glucose - 33 Ua Bilirubin - 33 Ua Ketones - 33 Ua Specific Disney 1.030 33 Ua Blood 3+ 33 Ua PH 5.0 33 Ua Protein - 33 Ua Urobilinogen - 33 Ua Nitrite - 33 Ua Leukocytes - 33 Laboratory test finding 04/19/2016 Trichomonas Vaginalis Rna Negative Negative 34 Urinalysis Profile 04/19/2016 Urine Color Alexsandra Urine Appearance Cloudy Urine Specific Disney 1.030 1.010-1.030 Urine pH 5.0 5-9 Urine Urobilinogen Negative Negative Urine Ketones Trace Negative Urine Protein Negative Negative Urine Leukocytes Trace Negative Urine Blood 1+ Negative Urine Nitrite Negative Negative Urine Bilirubin Negative Negative Urine Glucose Negative Negative Urine White Blood Cell Trace(0-5/hpf) Absent Urine Red Blood Cell 2+(6-10/hpf) Absent Urine Bacteria Absent Absent Urine Squamous Epithelial Cell Present Absent CBC Auto Diff 04/19/2016 White Blood Count 12.6 10^3/uL High 3.5-10.8 Red Blood Count 4.62 10^6/uL 4.0-5.4 Hemoglobin 13.4 g/dL 12.0-16.0 Hematocrit 40 % 35-47 Mean Corpuscular Volume 87 fL 80-97 Mean Corpuscular Hemoglobin 29 pg 27-31 Mean Corpuscular HGB Conc 33 g/dL 31-36 Red Cell Distribution Width 13 % 10.5-15 Platelet Count 252 10^3/uL 150-450 Mean Platelet Volume 8 um3 7.4-10.4 Abs Neutrophils 7.7 10^3/uL 1.5-7.7 Abs Lymphocytes 3.5 10^3/uL 1.0-4.8 Abs Monocytes 0.9 10^3/uL High 0-0.8 Abs Eosinophils 0.4 10^3/uL 0-0.6 Abs Basophils 0.1 10^3/uL 0-0.2 Abs Nucleated RBC 0 10^3/uL Granulocyte % 61.1 % 38-83 Lymphocyte % 27.4 % 25-47 Monocyte % 7.5 % 1-9 Eosinophil % 3.4 % 0-6 Basophil % 0.6 % 0-2 Nucleated Red Blood Cells % 0 Comp Metabolic Panel 04/19/2016 Sodium 134 mmol/L 133-145 Potassium 3.5 mmol/L 3.5-5.0 Chloride 105 mmol/L 101-111 Co2 Carbon Dioxide 26 mmol/L 22-32 Anion Gap 3 mmol/L 2-11 Glucose 95 mg/dL 70-100 Blood Urea Nitrogen 13 mg/dL 6-24 Creatinine 0.72 mg/dL 0.51-0.95 BUN/Creatinine Ratio 18.1 8-20 Calcium 9.4 mg/dL 8.6-10.3 Total Protein 7.2 g/dL 6.4-8.9 Albumin 4.6 g/dL 3.2-5.2 Globulin 2.6 g/dL 2-4 Albumin/Globulin Ratio 1.8 1-3 Total Bilirubin 0.20 mg/dL 0.2-1.0 Alkaline Phosphatase 60 U/L 34-104 Alt 39 U/L 7-52 Ast 23 U/L 13-39 Egfr Non- 99.5 >60 Egfr 128.0 >60 35 GC/Chlamydia Amplified Rna 04/19/2016 Chlamydia trachomatis Rna Negative Negative Neisseria gonorrhoeae (GC) Rna Negative Negative Laboratory test 04/19/2016 Gardnerella/Yeast: Vaginal SEE RESULT BELOW 36 finding Dna Laboratory test 04/19/2016 HCG < 0.60 mIU/mL 37 finding Urine Culture And Sensitivities SEE RESULT BELOW 38 Laboratory test 03/12/2016 Rapid Strep Negative Negative 39 finding Molecular Laboratory test 12/23/2015 Culture Genital & SEE RESULT BELOW 40 finding Sensitivity Laboratory test 12/23/2015 Cytology SEE RESULT BELOW 41 finding GC/Chlamydia 12/23/2015 Chlamydia trachomatis Negative Negative Amplified Rna Rna Neisseria gonorrhoeae (GC) Rna Negative Negative Laboratory test finding 12/23/2015 Human Papilloma Virus Negative Negative 42 Rna CBC Auto Diff 10/20/2015 White Blood Count 15.8 10^3/uL High 3.5-10.8 Red Blood Count 4.85 10^6/uL 4.0-5.4 Hemoglobin 14.5 g/dL 12.0-16.0 Hematocrit 44 % 35-47 Mean Corpuscular Volume 90 fL 80-97 Mean Corpuscular Hemoglobin 30 pg 27-31 Mean Corpuscular HGB Conc 33 g/dL 31-36 Red Cell Distribution Width 13 % 10.5-15 Platelet Count 233 10^3/uL 150-450 Mean Platelet Volume 9 um3 7.4-10.4 Abs Neutrophils 12.3 10^3/uL High 1.5-7.7 Abs Lymphocytes 2.3 10^3/uL 1.0-4.8 Abs Monocytes 0.9 10^3/uL High 0-0.8 Abs Eosinophils 0.2 10^3/uL 0-0.6 Abs Basophils 0.1 10^3/uL 0-0.2 Abs Nucleated RBC 0 10^3/uL Granulocyte % 77.7 % 38-83 Lymphocyte % 14.7 % Low 25-47 Monocyte % 5.7 % 1-9 Eosinophil % 1.3 % 0-6 Basophil % 0.6 % 0-2 Nucleated Red Blood Cells % 0 Laboratory test finding 10/20/2015 Lactic Acid 0.6 mmol/L 0.5-2.0 43 1 Acute inflammation: >10.00 2 <5.0 Negative 5.0 - 25.0 Indeterminate (Repeat testing recommended after 72 hours) >25.0 Positive Perimenopausal women can display HCG levels of up to 20 mIU/mL 3 SEE RESULT BELOW Name: STEPHANIE PRICE : [address]: Garry Batista MD Acct: [id number] Unit: [id number] AGE: 27 Location: ED Re05/11/17 SEX: F Status: DEP ER SPEC: [id number] KIKI: 05/11/17 DR: Garry Batista MD REQ: [id number] RECD: 05/11/17 STATUS: WALTER LEDEZMA DR: [facility] _ SOURCE: BLOOD,VENO SPDESC: ORDERED: Blood Cult Procedure Result Reported Site Aerobic Culture Bottle Final 05/16/17- 2129 ML No Growth Day 5 Anaerobic Culture Bottle Final 05/16/17- 2129 ML No Growth Day 5 * ML - MAIN LAB ([facility]) . END OF REPORT * ML=Testing performed at Main Lab DEPARTMENT OF PATHOLOGY, [address] [place] [address] Kevin Rebolledo M.D. Director [facility] # [id number] 4 Because ethnic data is not always readily available, this report includes an eGFR for both -Americans and non- Americans. The National Kidney Disease Education Program (NKDEP) does not endorse the use of the MDRD equation for patients that are not between the ages of 18 and 70, are , have extremes of body size, muscle mass, or nutritional status, or are non- or non-. According to the National Kidney Foundation, irrespective of diagnosis, the stage of the disease is based on the level of kidney function: Stage Description GFR(mL/min/1.73 m(2)) 1 Kidney damage with normal or decreased GFR 90 2 Kidney damage with mild decrease in GFR 60-89 3 Moderate decrease in GFR 30-59 4 Severe decrease in GFR 15-29 5 Kidney failure <15 (or dialysis) 5 SEE RESULT BELOW Name: STEPHANIE PRICE : [address]: Garry Batista MD Acct: [id number] Unit: [id number] AGE: 27 Location: ED Re05/11/17 SEX: F Status: DEP ER SPEC: [id number] KIKI: 05/11/[address]: Garry Batista MD REQ: [id number] RECD: 05/11/17 STATUS: COMP [facility] DR: [facility] _ SOURCE: URINE SPDESC: ORDERED: Urine Culture Procedure Result Reported Site Urine Culture Final 05/12/17- 1652 ML No Growth (<1,000 CFU/mL) * ML - MAIN LAB ([facility]) . END OF REPORT * ML=Testing performed at Main Lab DEPARTMENT OF PATHOLOGY, [address] [place] [address] Kevin Rebolledo M.D. Director [facility] # [id number] Approver: [id number] Approver: [id number] 8 Result in log IU/mL is 5.56. ADDITIONAL INFORMATION The quantification range of this assay is 15 to 100,000,000 IU/mL (1.18 log to 8.00 log IU/mL). Testing was performed using the pawel HCV test ([employer] with the pawel 6800 System. Test Performed by: [facility] - [address] [address] 9 ADDITIONAL INFORMATION This test was performed using the [employer] RealTime HCV Genotype II assay ([employer] [place], [place]). Test Performed by: [facility] [place] [address] 10 It is recognized that currently available assays for the detection of antibodies to HIV-1 and/or HIV-2 may not detect all infected individuals. HIV antibodies may be undetectable in some stages of the infection and in some clinical conditions. The performance of this assay has not been established for populations of infants or children. Assayed by Chemiluminescence Microparticle Immunoassay on the Siemens Advia Centaur CP. Values obtained with different methods or kits cannot be used interchangeably.The diagnostic specificity of the ADVIA Centaur 1/O/2 Enhanced assay in the low risk population was 99.90% (6052/6058) with a 95% confidence interval of 99.78 to 99.96%. 11 Because ethnic data is not always readily available, this report includes an eGFR for both -Americans and non- Americans. The National Kidney Disease Education Program (NKDEP) does not endorse the use of the MDRD equation for patients that are not between the ages of 18 and 70, are , have extremes of body size, muscle mass, or nutritional status, or are non- or non-. According to the National Kidney Foundation, irrespective of diagnosis, the stage of the disease is based on the level of kidney function: Stage Description GFR(mL/min/1.73 m(2)) 1 Kidney damage with normal or decreased GFR 90 2 Kidney damage with mild decrease in GFR 60-89 3 Moderate decrease in GFR 30-59 4 Severe decrease in GFR 15-29 5 Kidney failure <15 (or dialysis) 12 High reactive sample are considered positive for Hepatitis C 13 Therapeutic target for the treatment of diabetes mellitus patients is <7% HBA1C, and in selective patients <6.0%. Please refer to [place] [employer] diabetic care guidelines for further information. 14 Because ethnic data is not always readily available, this report includes an eGFR for both -Americans and non- Americans. The National Kidney Disease Education Program (NKDEP) does not endorse the use of the MDRD equation for patients that are not between the ages of 18 and 70, are , have extremes of body size, muscle mass, or nutritional status, or are non- or non-. According to the National Kidney Foundation, irrespective of diagnosis, the stage of the disease is based on the level of kidney function: Stage Description GFR(mL/min/1.73 m(2)) 1 Kidney damage with normal or decreased GFR 90 2 Kidney damage with mild decrease in GFR 60-89 3 Moderate decrease in GFR 30-59 4 Severe decrease in GFR 15-29 5 Kidney failure <15 (or dialysis) 15 Normal Range 180 to 914 Indeterminate Range 145 to 180 Deficient Range <145 16 REFERENCE VALUE <1.0 (Negative) 17 REFERENCE VALUE <1.0 (Negative) Test Performed by: [address] [address] 18 REFERENCE VALUE <=1.0 (Negative) 19 REFERENCE VALUE <20.0 (Negative) 20 Tests for antibodies to dsDNA and KEYLA antigens are not performed automatically unless the JACQUIE result is > or= 3.0 U. Studies performed at [facility] indicate that positive JACQUIE results <3.0 U are rarely accompanied by positive second order tests. Test Performed by: [facility] [address] , [place] [address] 21 Serologic response to B. burgdorferi infection is not detected, but cannot rule out early infection during which low or undetectable antibody levels to B. burgdorferi may be present. If clinically indicated, a new serum specimen should be submitted in 7-14 days. Test Performed by: [facility] - [address] [place] [address] 22 Because ethnic data is not always readily available, this report includes an eGFR for both -Americans and non- Americans. The National Kidney Disease Education Program (NKDEP) does not endorse the use of the MDRD equation for patients that are not between the ages of 18 and 70, are , have extremes of body size, muscle mass, or nutritional status, or are non- or non-. According to the National Kidney Foundation, irrespective of diagnosis, the stage of the disease is based on the level of kidney function: Stage Description GFR(mL/min/1.73 m(2)) 1 Kidney damage with normal or decreased GFR 90 2 Kidney damage with mild decrease in GFR 60-89 3 Moderate decrease in GFR 30-59 4 Severe decrease in GFR 15-29 5 Kidney failure <15 (or dialysis) 23 Therapeutic concentration: <50 ug/mL Toxic concentration: >120 ug/mL 24 Presumptive Positive Presumptive positive results are unconfirmed. 25 Presumptive Positive Presumptive positive results are unconfirmed. 26 The urine specimen was tested at the listed cutoffs: Drug class test level (ng/mL) Amphetamines 500 Barbiturates 200 Benzodiazepine metabolites 200 Cocaine metabolites 150 Cannabinoids 50 Opiates 300 Pcp 25 Specimen was received without chain of custody. Results should be used for medical purposes only. 27 SEE RESULT BELOW Name: STEPHANIE PRICE: [address]: Jeremy Ruvalcaba MD Acct: [id number] Unit: [id number] AGE: 26 Location: ED Re01/11/17 SEX: F Status: REG ER SPEC: [id number] KIKI: 01/11/17-[address]: Tee Vela MD REQ: [id number] RECD: 01/11/17 STATUS: WALTER LEDEZMA DR: Cindy BROOKSC _ SOURCE: URINE SPDESC: ORDERED: Urine Culture Procedure Result Reported Site Urine Culture Final 01/13/17- 912 ML Mixed salvador; possible contamination. Suggest resubmission. * ML - MAIN LAB ([facility]) . END OF REPORT * ML=Testing performed at Main Lab DEPARTMENT OF PATHOLOGY, [address] [place] [address] Kevin Rebolledo M.D. Director [facility] # [id number] 28 Because ethnic data is not always readily available, this report includes an eGFR for both -Americans and non- Americans. The National Kidney Disease Education Program (NKDEP) does not endorse the use of the MDRD equation for patients that are not between the ages of 18 and 70, are , have extremes of body size, muscle mass, or nutritional status, or are non- or non-. According to the National Kidney Foundation, irrespective of diagnosis, the stage of the disease is based on the level of kidney function: Stage Description GFR(mL/min/1.73 m(2)) 1 Kidney damage with normal or decreased GFR 90 2 Kidney damage with mild decrease in GFR 60-89 3 Moderate decrease in GFR 30-59 4 Severe decrease in GFR 15-29 5 Kidney failure <15 (or dialysis) 29 Therapeutic concentration: <50 ug/mL Toxic concentration: >120 ug/mL 30 Presumptive Positive Presumptive positive results are unconfirmed. 31 The urine specimen was tested at the listed cutoffs: Drug class test level (ng/mL) Amphetamines 500 Barbiturates 200 Benzodiazepine metabolites 200 Cocaine metabolites 150 Cannabinoids 50 Opiates 300 Pcp 25 Specimen was received without chain of custody. Results should be used for medical purposes only. 32 SEE RESULT BELOW Name: STEPHANIE PRICE: [address]: Cindy [facility] Acct: [id number] Unit: [id number] AGE: 26 Location: [facility] Re09/09/16 SEX: F Status: REG REF SPEC: [id number] KIKI: 09/09/16-[address]: Cindy ARAUZ REQ: [id number] RECD: 09/10/16-134 STATUS: COMP _ SOURCE: VAGINAL SPDESC: ORDERED: Genital Culture COMMENTS: [id number] Procedure Result Reported Site Genital Culture Final 09/12/16- 1157 ML Organism 1 YEAST Quantity 1+ Organism 2 NORMAL SLAVADOR Quantity 3+ * ML - MAIN LAB ([facility]) . END OF REPORT * ML=Testing performed at Main Lab DEPARTMENT OF PATHOLOGY, [address] [place] [address] Kevin Rebolledo M.D. Director [facility] # [id number] 33 void, hazy, dark yellow 34 GC/Chlamydia Source?: Endocervical Trichomonas Source: Endocervical 35 Because ethnic data is not always readily available, this report includes an eGFR for both -Americans and non- Americans. The National Kidney Disease Education Program (NKDEP) does not endorse the use of the MDRD equation for patients that are not between the ages of 18 and 70, are , have extremes of body size, muscle mass, or nutritional status, or are non- or non-. According to the National Kidney Foundation, irrespective of diagnosis, the stage of the disease is based on the level of kidney function: Stage Description GFR(mL/min/1.73 m(2)) 1 Kidney damage with normal or decreased GFR 90 2 Kidney damage with mild decrease in GFR 60-89 3 Moderate decrease in GFR 30-59 4 Severe decrease in GFR 15-29 5 Kidney failure <15 (or dialysis) 36 SEE RESULT BELOW Name: STEPHANIE PRICE ROBERTA : [address]: German Hernandez MD Acct: [id number] Unit: [id number] AGE: 26 Location: ED Re04/19/16 SEX: F Status: DEP ER SPEC: [id number] KIKI: 04/19/16 [facility] DR: German Hernandez MD REQ: [id number] RECD: 04/19/16 STATUS: WALTER LEDEZMA DR: Drew Goncalves MD _ SOURCE: VAGINAL SPDESC: ORDERED: Billy,Yeast DNA Procedure Result Reported Site Gardnerella/Yeast: Vaginal DNA Final 04/20/16- 1210 ML Organism 1 POSITIVE GARDNERELLA Organism 2 Negative Jihan The presence of G. vaginalis, although suggestive, is not diagnostic for bacterial vaginosis. Results should be interpreted in conjuction with other clinical and laboratory data available. Women with vaginal discharge should be evaluated for risk factors of cervicitis and pelvic inflammatory disease, toxic shock syndrome (S.aureus), and if present, evaluated for organisms not included in this assay such as N. gonorrhoeae, C. trachomatis, Mobiluncus, Mycoplasma and/or Prevotella. Mixed infections may occur. The performance of this test on patient specimens collected during or immediately after antimicrobial therapy is unknown. The presence or absence of Jihan species, or G. vaginalis cannot be used as a test for therapeutic success or failure. * ML - MAIN LAB ([facility]) . END OF REPORT * ML=Testing performed at Main Lab DEPARTMENT OF PATHOLOGY, [address] [place] [address] Kevin Rebolledo M.D. Director [facility] # [id number] 37 <5.0 Negative 5.0 - 25.0 Indeterminate (Repeat testing recommended after 72 hours) >25.0 Positive Perimenopausal women can display HCG levels of up to 20 mIU/mL 38 SEE RESULT BELOW Name: STEPHANIE PRICE : [address]: German Hernandez MD Acct: [id number] Unit: [id number] AGE: 26 Location: ED Re04/19/16 SEX: F Status: DEP ER SPEC: [id number] KIKI: 04/19/16-1949 [facility] DR: German Hernandez MD REQ: [id number] RECD: 04/19/16 STATUS: COMP OTHR DR: Drew Goncalves MD _ SOURCE: URINE SPDESC: ORDERED: Urine Culture Procedure Result Reported Site Urine Culture Final 04/20/16- 1616 ML No Growth (<1,000 CFU/mL) * ML - MAIN LAB ([facility]) . END OF REPORT * ML=Testing performed at Main Lab DEPARTMENT OF PATHOLOGY, [address] [place] [address] Kevin Rebolledo M.D. Director [facility] # [id number] 39 Approver: [id number] FARSHAD HERNANDEZ 40 SEE RESULT BELOW Name: STEPHANIE PRICE : [address]: Jeremy Godoy MD Acct: [id number] Unit: [id number] AGE: 25 Location: [facility] Re12/23/15 SEX: F Status: REG REF SPEC: [id number] KIKI: 12/23/15-[address]: Jeremy Godoy MD REQ: [id number] RECD: 12/24/15140 STATUS: COMP _ SOURCE: VAGINAL SPDESC: ORDERED: Genital Culture COMMENTS: [id number] Procedure Result Reported Site Genital Culture Final 12/26/15- 1450 ML Organism 1 BILLY VAGINALIS - PRESUMPTIVE Quantity 3+ Organism 2 YEAST Quantity 2+ Organism 3 NORMAL SALVADOR Quantity 1+ * ML - MAIN LAB ([facility]) . END OF REPORT * ML=Testing performed at Main Lab DEPARTMENT OF PATHOLOGY, [address] [place] [address] Kevin Rebolledo M.D. Director [facility] # [id number] 41 SEE RESULT BELOW Name: STEPHANIE PRICE ROBERTA : [address]: Jeremy Godoy MD Acct: [id number] Unit: [id number] AGE: 25 Location: [facility] Re12/23/15 SEX: F Status: REG REF SPEC: [id number] KIKI: 12/23/15 [facility] [address]: Jeremy Godoy MD REQ: [id number] RECD: 12/24/153265 STATUS: SOUT _ ORDERED: IMAGE ANALYSIS, HPV/Thin Prep COMMENTS: [id number] FINAL DIAGNOSIS Negative for Intraepithelial lesion or Malignancy A. Ectocervical/Endocervical Specimen Adequacy: Satisfactory of evaluation Transformation zone component identified Patient Information: HPV: High risk HPV RNA testing regardless of pap results. Actual Specimen Date: 12/24/15 ?: N Post Menopausal?: N Hysterectomy?: N Date Time Test Result Flag (u) Normal Range 12/23/15 1748 HPV RNA Negative Negative The high-risk HPV types detected by the assay include: 16, 18, 31, 33, 35, 39, 45, 51, 52, 56, 58, 59, 66, and 68. Signed (signature on file) SUNSHINE Joyner(ASC) 12/24 1611 This Pap test was evaluated with the assistance of the [employer] Test Imaging System. Due to cytologic findings at the veterinary medicine doctor microscope, comprehensive manual rescreening by a Whiteprinting Machine Operator may be required. The Pap Smear is a screening test designed to aid in the detection of premalignant and malignant conditions of the uterine cervix. It is not a diagnostic procedure and should not be used as the sole means of detecting cervical cancer. Both false- positive and false- negative reports do occur. Depending on your risk status, a Pap smear should be obtained and evaluated every 1-3 years. END OF REPORT * ML=Testing performed at Main Lab DEPARTMENT OF PATHOLOGY, [address] [place] [address] Kevin Rebolledo M.D. Director [facility] # [id number] 42 The high-risk HPV types detected by the assay include: 16, 18, 31, 33, 35, 39, 45, 51, 52, 56, 58, 59, 66, and 68. 43 [facility] Severe Sepsis and Septic Shock Management Bundle Measure requires all lactic acids initially measuring >2.0 mmol/L be repeated. Procedures Date CPT Code Description Status 07/31/2016 00976 SC/Im Injections Completed 12/23/2015 93471 Anoscopy Diagnostic Completed Encounters Type Date Location Provider CPT E/M Dx Office Visit 05/17/2017 4:30p [place] [address] M54.5 F41.9 B18.2 F11.21 R10.84 F17.210 N83.202 N20.0 K59.00 Office Visit 05/04/2017 11:20a [place] [address] B18.2 F11.21 R19.7 R10.84 F17.210 J06.9 J03.90 Office Visit 04/07/2017 1:55p [place] [address] B18.2 F11.21 R10.84 G43.009 M54.9 Office Visit 03/15/2017 3:50p [place] [address] F25.0 F11.21 R10.84 G43.009 F17.210 Z23 Office Visit 03/02/2017 11:40a [place] [address] F11.20 F31.9 K21.9 M54.13 R10.84 F17.210 Office Visit 01/15/2017 9:15a [place] [address] F11.20 F31.9 R10.84 N91.2 Office Visit 12/29/2016 8:40a [place] [address] R10.84 F11.20 G43.009 M54.9 R31.9 F31.9 Office Visit 12/07/2016 10:05a [place] [address] R10.84 F11.20 G43.009 F31.9 M54.9 Office Visit 11/02/2016 4:10p [place] [address] R10.84 R19.7 F11.20 G43.009 N92.6 R10.30 F31.9 Office Visit 10/20/2016 2:40p [place] [address] A60.04 R10.84 M54.9 F11.20 G43.009 Office Visit 10/07/2016 2:35p [place] [address] R10.84 B00.9 F11.20 Office Visit 09/09/2016 2:35p [place] [address] R10.84 F11.20 F17.210 N76.0 Z11.3 N91.2 G43.009 R19.7 Office Visit 08/17/2016 2:30p [place] [address] R10.84 R19.7 F11.20 K08.89 Office Visit 08/03/2016 4:50p [place] [address] F11.20 R10.84 F31.9 R19.7 J02.0 Office Visit 07/31/2016 10:00a Main Office Jeremy Godoy M.D. 18145 J02.0 Office Visit 07/29/2016 11:25a [place] [address] R10.84 F11.20 F31.9 R31.9 F17.210 G25.81 J02.0 Office Visit 07/13/2016 9:45a [place] [address] R10.84 F11.20 R31.21 F31.9 F17.210 Office Visit 06/24/2016 2:35p [place] [address] R10.84 F11.20 R31.9 F31.9 Office Visit 06/17/2016 4:15p [place] [address] R10.84 R19.5 F11.20 F31.9 R31.9 Z79.899 Office Visit 12/23/2015 2:00p Main Office Jeremy Godoy M.D. 92770 Z71.89 R10.84 R19.5 Z80.49 Plan of Care Future Appointment(s):06/16/2017 1:55 pm - [facility] at Main [id number] - Cindy Lee, PAM54.5 Low back painComments:Continue meloxicam. Benzos for anxiety should help w muscle spasms, discussed careful use of benzos in light of pt's drug Hx. Rest, gentle stretches, avoid aggravating movement. Recheck if sx not improving.F41.9 Anxiety disorder, unspecifiedNew Medication: Lorazepam 1 mgComments:Trial of prn lorazepam, discussed careful use of benzos in light of pt's drug Hx. Monitor closely.B18.2 Chronic viral hepatitis CComments:Seeing GI (Dr. Barker), Hep C labs being monitored for now (see HPI) .F11.21 Opioid dependence, in remissionComments:Recent inpatient treatment at [facility]. Patient doing very well on naltrexone, no replapses or cravings. Getting outpatient treatment at [facility]. ZqdcbbcX19.84 Generalized abdominal painComments:Chronic abdominal pain, seeing GI. Sx doing better recently. Pt will be getting EGD (& possible colonoscopy) soon.F17.210 Nicotine dependence, cigarettes, uncomplicatedComments:Smoking cessation counseling < 10 minutes done today.N83.202 Unspecified ovarian cyst, left sideNew Xrays: Pelvic SonogramComments:Will check pelvic u/s. Consider [employer] referral based on results.N20.0 Calculus of kidneyComments:Kidney stone seen on recent CT, nonobstructing. Push fluids and monitor for now.K59.00 Constipation, unspecifiedComments:Recommended OTC miralax. Discussed proper diet and fluid intake. Recheck if sx not improving.
--- OUTSIDE RECORDS SUMMARY | 2017-05-25 19:38 | XMS REPORT ---
:1990 External Reference #:[id number] Author Organization [facility] Address [address] [place] [address] Phone [phone] Care Team Providers Name Role Phone HCP given Primary Care Physician Unavailable Payers Type Date Identification Numbers Payment Provider Subscriber Commercial Policy Number: [id number] [place] Anitra Price Ind/Ppo/Hmo/Pos PayID: [id number] [address] [address] [place] [address] [facility] Part [facility] Policy Number: [id number] Medicaid Stephanie Price PayID: [id number] [address] [place] [address] Problems Date Description Provider Status Onset: 06/17/2016 [...] hepatitis C Cindy Lee PA Active Onset: 04/07/2017 Backache [...] In heroin, The Past cocaine--inpatient rehab at [facility] 01/2017 Smoking Light tobacco smoker (10 or fewer cigarettes/day) Recreational Drug Use 05/04/2017 Does Not Currently Use reviewed 05/04/17--No Illegal Drugs use since starting rehab 01/2017 Daily Caffeine Consumes Caffeine soda, coffee, tea Exercise Type/Frequency Exercises regularly Sun Exposure Does not use sunscreen Seat Belt/Car Seat Seat Belt Use - Yes Currently Active Patient is currently sexually active Age 1st [place] 16 Years Old STD's No STD History Sexual Hx text Uses control/Nexplanor Allergies, Adverse Reactions, Alerts Date Description Reaction Status Severity Comments 12/23/2015 Penicillins active hives 12/23/2015 Augmentin active hives, sob 06/01/2016 Amoxicillin active hives 06/01/2016 Cats active hives Medications Medication Date Status Form Strength Qnty SIG Indications Ordering Provider Diphenoxylate-At 05/04 Active Tablets 2.5-0.025 120ta 1 tab by R19.7 beatrice Goncalves /2017 mg bs mouth every Drew, 6 hours as M.D. needed for diarrhea Medrol 05/04 Active TBPK 4mg 1unit use as J03.90 Sacha, s directed on Drew, package M.D. Cyclobenzaprine 04/07 Active Tablets 10mg 90tab 1 tab by SHAMA Goncalves s mouth three Drew, times a day M.D. as needed for spasms Acidophilus 03/15 Active Capsules 60cap 1 tab po Silcomeryl, Extra Strength s bid Magda Russell Folic Acid-Vit 03/15 Active Tablets 0.4-50-0. 30tab 1 tab po Silcoff, B6-Vit B12 1mg s daily Magda Russell Multi Vitamin 03/15 Active Tablets 30tab 1 tab po Silcoff, Daily s daily Magda Russell Olanzapine 03/14 Active Tablets 5mg 60tab 2 tablet Silcoff, s every night Drew, at bedtime M.D. Vistaril 03/14 Active Capsules 50mg 90cap 1 tab by Unknown s mouth up to 3x daily Trileptal 03/14 Active Tablets 300mg 120ta 2 tab by Silcomeryl, bs mouth Derw, 2x/day M.D. Meloxicam 03/02 Active Tablets 15mg 30tab take one R10.84 Silfarzana, s tablet by Drew mouth every M.D. day for joint pain Naltrexone HCL 03/01 Active Tablets 50mg 30tab 1 tab by Silcomeryl, s mouth daily Drew, with food M.D. Trazodone HCL 03/01 Active Tablets 100mg 1 tabs by mouth every night at bedtime for sleep Amitriptyline 03/01 Active Tablets 50mg 30tab 1 tab by Silcomeryl, HCL s mouth at Drew, bedtime prn M.D. Mirtazapine 03/01 Active Tablets 45mg 90tab 1 by mouth F31.9 Sopchak, s nightly Silvio Carr.Jasbir. Sumatriptan 09/09 Active Tablets 50mg 14tab 1 tab by G43.009 Silcomeryl, Succinate s mouth at [place], onset of M.D. migraine, may repeat x1 after 2 hours if needed Ropinirole HCL 07/29 Active Tablets 0.25mg 30tab 1 tab by G25.81 Silcoff, s mouth at Drew, bedtime for M.D. restless legs Nexplanon Active Implant 68mg placed Unknown 0000 05/2014 Baclofen Active Tablets 10mg take 1 Unknown /0000 tablet by mouth three times a day Nystatin 00 Active Suspension [id number] take 4 Unknown t/ML milliliters by mouth four times a day as directed Zanaflex 03/14 Hx Capsules 6mg 90cap 1 tab po up s to tid prn - 04/07 Tizanidine HCL 03/02 Hx Capsules 6mg 30cap one tab by Sacha, s mouth three Drew, - times a day M.D. 03/14 as needed for spasms Nicotine Step 2 03/02 Hx Patches 14mg/24HR 30uni apply 1 F17.210 Sacha 24HR ts patch Drew, - topically M.D. 03/14 daily Omeprazole 03/[address] 20mg 30cap 1 by mouth K21.9 Sacha, s every day Drew, - M.D. 03/14 Tizanidine HCL 03/01 Hx Capsules 4mg 1 tab by mouth three - times a day 03/02 as needed spasms Ondansetron HCL 03/01 Hx Tablets 4mg 1 by mouth every 4 - hours as 03/14 needed for nausea Oxcarbazepine 03/01 Hx Tablets 300mg 2 tabs po twice daily - 03/14 Clonidine HCL 01/15 Hx Tablets 0.3mg 60tab 1 tab po F31.9 Urbano, s bid Bruno, - D.O. 03/01 F11.20 Meloxicam 12/29/2016 - Hx Tablets 7.5mg 60tabs 1 tab by R10.84 Sacha, 03/02/2017 mouth up Drew, to twice M.D. daily as needed for pain Chlorzoxazone 12/29/2016 - Hx Tablets 500mg 90tabs 1 tab by M54.9 Scaha, 03/01/2017 mouth Drew, three M.D. times a day as needed spasms Orphenadrine 12/08/2016 - Hx Tablets ER 100mg 60tabs take 1 M54.9 Hektor, Citrate ER 12/29/2016 12HR tablet by KAVITA White mouth two times daily as needed for spasms Carisoprodol 12/07/2016 - Hx Tablets 250mg 90tabs 1 tab po M54.9 Hektor , 12/08/2016 every 8 KAVITA White hours as needed for muscle spasms Celecoxib 12/07/2016 - Hx Capsules 100mg 60caps 1 cap by R10.84 Hekdillan, 12/29/2016 mouth Cindy PA twice a day as needed for pain M54.9 Venlafaxine HCL 12/07/2016 - Hx Tablets 75mg 60tabs 1 by mouth F31.9 Hektor, 12/28/2016 twice a KAVITA White day Endocet 11/02/2016 - Hx Tablets 10-325mg 21tabs 1 tab po R10.84 Hektor, 11/02/2016 every 8 KAVITA White hours as needed for severe pain, max 3/day Meloxicam 11/02/2016 - Hx Tablets 7.5mg 60tabs 1 tab by R10.84 Hektor, 12/07/2016 mouth up KAVITA White to twice daily as needed for pain Clonidine HCL 11/02/2016 - Hx Tablets 0.2mg 60tabs 1 tab by F31.9 Silcoff, 01/15/2017 mouth Drew, twice a M.D. day F11.20 Hydroxyzine 11/02/2016 - Hx Capsules 100mg 120caps 1 tab by F31.9 Rosa, Pamoate 03/14/2017 mouth up to KAVITA White every 6 hours as needed for anxiety Cyclobenzaprine 11/02/2016 - Hx Tablets 10mg 90tabs 1 tab by F11.20 Tedtor, HCL 12/07/2016 mouth up to KAVITA White three times a day as needed for spasms Valacyclovir HCL 10/20/2016 - Hx Tablets 1gm 14tabs 1 tab by A60.04 Hektor, 10/27/2016 mouth every KAVITA White 12 hours x7 days Metaxalone 10/20/2016 - Hx Tablets 800mg 90tabs 1 tab by F11.20 Hekdillan, 11/02/2016 mouth three KAVITA White times a day as needed spasms Ondansetron HCL 10/07/2016 - Hx Tablets 4mg 60tabs 1 tab by R10.84 Hektor, 01/14/2017 mouth twice KAVITA White a day as needed for nausea Diflucan 09/14/2016 - Hx Tablets 150mg 1tabs 1 tab by Hektor, 10/06/2016 mouth once KAVITA White for yeast infection Oxycodone HCL 08/17/2016 - Hx Tablets 10mg 90tabs 1 tablets R10.84 Hektor, 11/02/2016 by mouth KAVITA White two to three times a day as needed for severe pain Diphenoxylate-Atro 08/03/2016 - Hx Tablets 2.5-0.0 120tabs 1 tab by R19.7 Rosa, pine 03/15/2017 25mg mouth every KAVITA White 6 hours as needed for diarrhea Clonidine HCL 08/03/2016 - Hx Tablets 0.2mg 30tabs 1 tab by F31.9 Rosa, 11/02/2016 mouth at KAVITA White night for anxiety F11.20 Hydroxyzine 08/03/2016 - Hx Tablets 10mg 90tabs 1 tab by mouth F31.9 Hektor, HCL 11/02/2016 three times a day KAVITA [...] 300mg 20caps 1 cap by mouth J02.0 [facility], 08/08/2016 twice a day x10 KAVITA White [...] 5-325m 30tabs take 1 tablet up R10.84 Rosa aminophen 08/03/2016 g to 2 times a day KAVITA White as needed for pain Suboxone 05/20/2016 - Hx Film 8-2mg 1 by mouth every Unknown 06/23/2016 morning; suboxone prescriber# [id number] Clonidine HCL 05/20/2016 - Hx Tablets ER 0.1mg 30tabs 1 tab by mouth at [facility], ER 08/03/2016 12HR bedtime KAVITA White Diflucan 12/30/2015 - Hx Tablets 150mg 1tabs 1 tab by mouth [facility], 06/16/2016 once KAVITA White Metrogel-Vagin 12/30/2015 - Hx Gel 0.75% 70gm 1 applicatorful [facility] al 06/16/[address] of vagina KAVITA White every night at bedtime x5 days No Active 12/23/2015 - Hx Unknown Medications 12/30/2015 Diphenoxylate- - Hx Tablets 2.5-0. take 2 tablets by R19.7 Unknown Atropine 03/14/2017 025mg mouth 4 times per day as needed for diarrhea Medications Administered in Office Medication Date Status Form Strength Qnty SIG Indications Ordering Provider SC/Im Administered Injection Jeremy Godoy M.D. Immunizations CPT Code Status Date Vaccine Lot # [id number] Given 03/15/2017 Adacel or Boostrix, TDaP [id number] Vital Signs Date Vital Result Comment 05/04/2017 BP Systolic 146 mmHg BP Diastolic [...] Test Date Test Result H/L Range Note Urinalysis Profile 05/11/2017 Urine Color Yellow Urine Appearance Cloudy Urine Specific Mcgrady 1.010 1.010-1.030 Urine pH 7.0 5-9 Urine [...] gonorrhoeae (GC) Rna Negative Negative Laboratory test 05/11/2017 Urine Culture And SEE RESULT 1 finding Sensitivities BELOW CBC Auto Diff 05/11/2017 White Blood Count [...] Blood Cells % 0 Comp Metabolic Panel 05/11/2017 Sodium 135 mmol/L [...] Egfr Non- 113.1 >60 Egfr 145.4 >60 2 Laboratory test finding 05/11/2017 Lipase 24 U/L 11.0-82.0 C Reactive Protein < 1.00 mg/L < 5.00 3 HCG < 0.60 mIU/mL 4 Blood Culture SEE RESULT BELOW 5 Rapid Influenza A & B 04/19/2017 Influenza A Molecular NEGATIVE Negative 6 Molecular Influenza B Molecular NEGATIVE Negative Laboratory test finding 04/19/2017 Rapid Strep Molecular Negative Negative 7 HIV 1/2 AB Evaluation 04/08/2017 HIV 1 2 Antibody Nonreactive Nonreactive 8 Laboratory test finding 04/08/2017 Hepatitis C Rna Quant 434774 IU/mL Undetected 9 Hepatitis C Genotype 1a Undetected 10 Hepatitis Acute Panel 04/05/2017 Hepatitis B Surface Nonreactive Nonreactive Antigen Hepatitis B Core IgM Nonreactive Nonreactive Hepatitis A AB IgM Nonreactive Nonreactive Hepatitis C Antibody High Reactive Nonreactive 11 Comp Metabolic Panel 04/05/2017 Sodium 138 mmol/L [...] Egfr Non- 100.3 >60 Egfr 129.0 >60 12 CBC Auto Diff 04/04/2017 White Blood [...] TSH (Thyroid Stim Horm) 1.01 mcIU/mL 0.34-5.60 Laboratory test finding 01/11/2017 Urine Culture And SEE RESULT BELOW 24 Sensitivities Urinalysis Profile 01/11/2017 Urine Color Alexsandra Urine Appearance Cloudy Urine Specific Mcgrady 1.026 1.010-1.030 Urine pH 7.0 5-9 Urine [...] Present Absent Urine Amorphous Crystals Present Absent Urine Drug SCR ED 01/11/2017 Amphetamine Ur Screen None Detected None Detect & [facility] Barbiturates Urine Screen None Detected None Detect Benzodiazepine Urine Screen None Detected None Detect Urine Cannabinoids Screen None Detected None Detect Urine Cocaine Screen Presumptive Posi <SEE NOTE> None Detect 25 Urine Opiates Screen Presumptive Posi <SEE NOTE> None Detect 26 Urine Phencyclidine Screen None Detected None Detect 27 Urinalysis Profile 11/20/2016 Urine Color Colorless Urine Appearance Clear Urine Specific Mcgrady 1.002 Low 1.010-1.030 Urine pH 6.0 5-9 Urine Urobilinogen Negative Negative Urine Ketones Negative Negative Urine Protein Negative Negative Urine Leukocytes Negative Negative Urine Blood 1+ Negative Urine Nitrite Negative Negative Urine Bilirubin Negative Negative Urine Glucose Negative Negative Urine White Blood Cell Trace(0-5/hpf) Absent Urine Red Blood Cell Trace(0-2/hpf) Absent Urine Bacteria Absent Absent Urine Drug SCR ED 11/20/2016 Amphetamine Ur Screen None Detected None Detect & Pain Clinic Barbiturates Urine Screen None Detected None Detect Benzodiazepine Urine Screen None Detected None Detect Urine Cannabinoids Screen None Detected None Detect Urine Cocaine Screen Presumptive Posi <SEE NOTE> None Detect 28 Urine Opiates Screen None Detected None Detect Urine Phencyclidine Screen None Detected None Detect 29 CBC Auto Diff 11/20/2016 White Blood Count [...] Egfr Non- 116.1 >60 Egfr 149.3 >60 30 Laboratory test finding 11/20/2016 Acetaminophen < 15 g/mL 31 Alcohol 77 mg/dL High <10 Salicylate < 2.50 mg/dL <30 TSH (Thyroid Stim Horm) 0.88 mcIU/mL 0.34-5.60 Urine Drug Screen Inhouse 11/02/2016 Ua Cocaine - Ua Opiates - Ua Amphetamines - Urine Methanphetamines - Urine Benzodiazepines QN [place] - Urine Oxycodone QL + Urine Drug Screen Inhouse 10/07/2016 Ua Cocaine - Ua Opiates - Ua Amphetamines - Urine Methanphetamines - Urine Benzodiazepines QN [place] - Urine Oxycodone QL + Laboratory test finding 09/09/2016 Culture Genital & SEE RESULT BELOW 32 Sensitivity Urine Drug Screen 09/09/2016 Ua Cocaine - Inhouse Ua Opiates + Ua Amphetamines - Urine Methanphetamines - Urine Benzodiazepines QN [place] - Urine Oxycodone QL + Urine Drug Screen Inhouse 08/03/2016 Ua Cocaine _ Ua Opiates + Ua Amphetamines _ Urine Methanphetamines _ Urine Benzodiazepines QN [place] _ Urine Oxycodone QL + Laboratory test finding 07/29/2016 Culture Throat Rapid Screen positive Urine Drug Screen Inhouse 07/13/2016 Ua Cocaine + Ua Opiates + Ua Amphetamines - Urine Methanphetamines - Urine Benzodiazepines QN [place] - Urine Oxycodone QL + Ua Inhouse 06/17/2016 Ua Glucose - 33 Ua Bilirubin - 33 Ua Ketones - 33 Ua Specific Mcgrady 1.030 33 Ua Blood 3+ 33 Ua PH 5.0 33 Ua Protein - 33 Ua Urobilinogen - 33 Ua Nitrite - 33 Ua Leukocytes - 33 Laboratory test 04/19/2016 Gardnerella/Yeast: Vaginal SEE RESULT BELOW 34 finding Dna Laboratory test 04/19/2016 HCG < 0.60 mIU/mL 35 finding Urine Culture And Sensitivities SEE RESULT BELOW 36 Comp Metabolic Panel 04/19/2016 Sodium 134 mmol/L [...] Egfr Non- 99.5 >60 Egfr 128.0 >60 37 CBC Auto Diff 04/19/2016 White Blood Count [...] 0-2 Nucleated Red Blood Cells % 0 Urinalysis Profile 04/19/2016 Urine Color Alexsandra Urine Appearance Cloudy Urine Specific Mcgrady 1.030 1.010-1.030 Urine pH 5.0 5-9 Urine Urobilinogen Negative Negative Urine Ketones Trace Negative Urine Protein Negative Negative Urine Leukocytes Trace Negative Urine Blood 1+ Negative Urine Nitrite Negative Negative Urine Bilirubin Negative Negative Urine Glucose Negative Negative Urine White Blood Cell Trace(0-5/hpf) Absent Urine Red Blood Cell 2+(6-10/hpf) Absent Urine Bacteria Absent Absent Urine Squamous Epithelial Cell Present Absent Laboratory test finding 04/19/2016 Trichomonas Vaginalis Rna Negative Negative 38 GC/Chlamydia Amplified 04/19/2016 Chlamydia trachomatis Rna Negative Negative Rna Neisseria gonorrhoeae (GC) Rna Negative Negative Laboratory test finding 03/12/2016 Rapid Strep Molecular Negative Negative 39 Laboratory test finding 12/23/2015 Human Papilloma Virus Rna Negative Negative 40 GC/Chlamydia Amplified 12/23/2015 Chlamydia trachomatis Rna Negative Negative Rna Neisseria gonorrhoeae (GC) Rna Negative Negative Laboratory test 12/23/2015 Cytology SEE RESULT BELOW 41 finding Laboratory test 12/23/2015 Culture Genital & SEE RESULT BELOW 42 finding Sensitivity Laboratory test 10/20/2015 Lactic Acid 0.6 mmol/L 0.5-2.0 43 finding CBC Auto Diff 10/20/2015 White Blood Count [...] 0-2 Nucleated Red Blood Cells % 0 1 SEE RESULT BELOW Name: STEPHANIE PRICE : [address]: Garry Batista MD Acct: [id number] Unit: [id number] AGE: 27 Location: ED Re05/11/17 SEX: F Status: DEP ER SPEC: [id number] KIKI: 05/11/[address]: Garry Batista MD REQ: [id number] RECD: 05/11/17 STATUS: WALTER LEDEZMA DR: [facility] Cindy ARAUZ _ SOURCE: URINE SPDESC: ORDERED: Urine Culture Procedure Result Reported Site Urine Culture Final 05/12/17- 1652 ML No Growth (<1,000 CFU/mL) * ML - MAIN LAB ([facility]) . END OF REPORT * ML=Testing performed at Main Lab DEPARTMENT OF PATHOLOGY, [address] [place] [address] Kevin Rebolledo M.D. Director [facility] # [id number] 2 Because ethnic data is not always readily [...] 15-29 5 Kidney failure <15 (or dialysis) 3 Acute inflammation: >10.00 4 <5.0 Negative 5.0 - 25.0 Indeterminate (Repeat testing recommended after 72 hours) >25.0 Positive Perimenopausal women can display HCG levels of up to 20 mIU/mL 5 SEE RESULT BELOW Name: STEPHANIE PRICE : [address]: Garry Batista MD Acct: [id number] Unit: [id number] AGE: 27 Location: ED Re05/11/17 SEX: F Status: DEP ER SPEC: [id number] KIKI: 05/11/17 [facility] DR: Garry Batista MD REQ: [id number] RECD: 05/11/17 STATUS: WALTER LEDEZMA DR: [facility] Cindy ARAUZ _ SOURCE: BLOOD,VENO SPDESC: ORDERED: Blood Cult Procedure Result Reported Site Aerobic Culture Bottle Final 05/16/17- 0 ML No Growth Day 5 Anaerobic Culture Bottle Final 05/16/17- 0 ML No Growth Day 5 * ML - [facility] ([facility]) . END OF REPORT * ML=Testing performed at Main Lab DEPARTMENT OF PATHOLOGY, [address] [place] [address] Kevin Rebolledo M.D. Director [facility] # [id number] 6 Mixer Operator Vacuum Pan Salt: [id number] 7 Mixer Operator Vacuum Pan Salt: [id number] 8 It is recognized that currently available assays [...] 95% confidence interval of 99.78 to 99.96%. 9 Result in log IU/mL is 5.56. ADDITIONAL INFORMATION The quantification range of this assay is 15 to 100,000,000 IU/mL (1.18 log to 8.00 log IU/mL). Testing was performed using the pawel HCV test ([employer] with the pawel Narrable0 System. Test Performed by: [facility] [address] [place] [address] 10 ADDITIONAL INFORMATION This test was performed using the [employer] RealTime HCV Genotype II assay ([employer] [place], [place]). Test Performed by: [facility] [address] [place] [address] 11 High reactive sample are considered positive for Hepatitis C 12 Because ethnic data is not always readily [...] 15-29 5 Kidney failure <15 (or dialysis) 13 Therapeutic target for the treatment of diabetes mellitus patients is <7% HBA1C, and in selective patients <6.0%. Please refer to [place] [employer] diabetic care guidelines for further [...] REFERENCE VALUE <1.0 (Negative) Test Performed by: [facility] [address] [place] [address] 18 REFERENCE VALUE <=1.0 (Negative) 19 REFERENCE VALUE <20.0 (Negative) 20 Tests for antibodies to dsDNA and KEYLA antigens are not performed automatically unless the JACQUIE result is > or= 3.0 U. Studies performed at [facility] indicate that positive JACQUIE results <3.0 U are rarely accompanied by positive second order tests. Test Performed by: [facility] - [address] [address] 21 Serologic response to B. burgdorferi infection is not detected, but cannot rule out early infection during which low or undetectable antibody levels to B. burgdorferi may be present. If clinically indicated, a new serum specimen should be submitted in 7-14 days. Test Performed by: [facility] - [address] [place] [address] 22 Because ethnic data is not always [...] <50 ug/mL Toxic concentration: >120 ug/mL 24 SEE RESULT BELOW Name: STEPHANIE PRICE : [address]: Jeremy Ruvalcaba MD Acct: [id number] Unit: [id number] AGE: 26 Location: ED Re01/11/17 SEX: F Status: REG ER SPEC: [id number] KIKI: 01/11/17-1654 [facility] DR: Tee Vela MD REQ: [id number] RECD: 01/11/17 STATUS: WALTER LEDEZMA DR: Cindy ARAUZ _ SOURCE: URINE SPDESC: ORDERED: Urine Culture Procedure Result Reported Site Urine Culture Final 01/13/17- 09 ML Mixed salvador; possible contamination. Suggest resubmission. * ML - MAIN LAB ([facility]) . END OF REPORT * ML=Testing performed at Main Lab DEPARTMENT OF PATHOLOGY, [address] [place] [address] Kevin Rebolledo M.D. Director [facility] # [id number] 25 Presumptive Positive Presumptive positive results are unconfirmed. 26 Presumptive Positive Presumptive positive results are unconfirmed. 27 The urine specimen was tested at the listed cutoffs: Drug class test level (ng/mL) Amphetamines 500 Barbiturates 200 Benzodiazepine metabolites 200 Cocaine metabolites 150 Cannabinoids 50 Opiates 300 Pcp 25 Specimen was received without chain of custody. Results should be used for medical purposes only. 28 Presumptive Positive Presumptive positive results are unconfirmed. 29 The urine specimen was tested at the listed cutoffs: Drug class test level (ng/mL) Amphetamines 500 Barbiturates 200 Benzodiazepine metabolites 200 Cocaine metabolites 150 Cannabinoids 50 Opiates 300 Pcp 25 Specimen was received without chain of custody. Results should be used for medical purposes only. 30 Because ethnic data is not always readily [...] 15-29 5 Kidney failure <15 (or dialysis) 31 Therapeutic concentration: <50 ug/mL Toxic concentration: >120 ug/mL 32 SEE RESULT BELOW Name: STEPHANIE PRICE : [address]: Cindy ARAUZ Acct: [id number] Unit: [id number] AGE: 26 Location: [facility] Re09/09/16 SEX: F Status: REG REF SPEC: [id number] KIKI: 09/09/16-[address]: Cindy ARAUZ REQ: [id number] RECD: 09/10/16-4074 STATUS: COMP _ SOURCE: VAGINAL SPDESC: ORDERED: Genital Culture COMMENTS: [id number] Procedure Result Reported Site Genital Culture Final 09/12/16- 1157 ML Organism 1 YEAST Quantity 1+ Organism 2 NORMAL SALVADOR Quantity 3+ * ML - MAIN LAB ([facility]) . END OF REPORT * ML=Testing performed at Main Lab DEPARTMENT OF PATHOLOGY, [address] [place] [address] Kevin Rebolledo M.D. Director [facility] # [id number] 33 void, hazy, dark yellow 34 SEE RESULT BELOW Name: STEPHANIE PRICE : [address]: German Hernadnez MD Acct: [id number] Unit: [id number] AGE: 26 Location: ED Re04/19/16 SEX: F Status: DEP ER SPEC: [id number] KIKI: 04/19/16-2019 [facility] DR: German Hernandez MD REQ: [id number] RECD: 04/19/16 STATUS: WALTER GANN DR: Drew Goncalves MD _ SOURCE: VAGINAL [...] or failure. * ML - MAIN LAB ([facility]) . END OF REPORT * ML=Testing performed at Main Lab DEPARTMENT OF PATHOLOGY, [address] [place] [address] Kevin Rebolledo M.D. Director [facility] # [id number] 35 <5.0 Negative 5.0 - 25.0 Indeterminate (Repeat testing recommended after 72 hours) >25.0 Positive Perimenopausal women can display HCG levels of up to 20 mIU/mL 36 SEE RESULT BELOW Name: STEPHANIE PRICE : [address]: German Hernandez MD Acct: [id number] Unit: [id number] AGE: 26 Location: ED Re04/19/16 SEX: F Status: DEP ER SPEC: [id number] KIKI: 04/19/16-1949 [facility] DR: German Hernandez MD REQ: [id number] RECD: 04/19/16 STATUS: WALTER LEDEZMA DR: Drew Goncalves MD _ SOURCE: URINE SPDESC: ORDERED: Urine Culture Procedure Result Reported Site Urine Culture Final 04/20/16- 1616 ML No Growth (<1,000 CFU/mL) * ML - MAIN LAB ([facility]) . END OF REPORT * ML=Testing performed at Main Lab DEPARTMENT OF PATHOLOGY, [address] [place] [address] Kevin Rebolledo M.D. Director [facility] # [id number] 37 Because ethnic data is not always readily [...] 15-29 5 Kidney failure <15 (or dialysis) 38 GC/Chlamydia Source?: Endocervical Trichomonas Source: Endocervical 39 Mixer Operator Vacuum Pan Salt: [id number] FARSHAD HERNANDEZ 40 The high-risk HPV types detected by the assay include: 16, 18, 31, 33, 35, 39, 45, 51, 52, 56, 58, 59, 66, and 68. 41 SEE RESULT BELOW Name: STEPHANIE PRICE ROBERTA : [address]: Jeremy Godoy MD Acct: [id number] Unit: [id number] AGE: 25 Location: [facility] Re12/23/15 SEX: F Status: REG REF SPEC: [id number] KIKI: 12/23/15-1748 [facility] DR: Jeremy Godoy MD REQ: [id number] RECD: 12/24/15-1358 STATUS: SOUT _ ORDERED: IMAGE ANALYSIS, HPV/Thin Prep COMMENTS: [id number] FINAL DIAGNOSIS Negative for Intraepithelial lesion or [...] and 68. Signed (signature on file) SUNSHINE Joyner(ASCP) 12/24 4341 This Pap test was evaluated with the assistance of the ThinPrep Test Imaging System. Due to cytologic findings at the emergency medical dispatcher microscope, comprehensive manual rescreening by a Special Equipment Technician may be required. The Pap Smear is [...] performed at Main Lab DEPARTMENT OF PATHOLOGY, [address] [place] [address] Kevin Rebolledo M.D. Director [facility] # [id number] 42 SEE RESULT BELOW Name: MATEO PRICEKVNG GRANADOS : [address]: Jeremy Godoy MD Acct: [id number] Unit: [id number] AGE: 25 Location: [facility] Re12/23/15 SEX: F Status: REG REF SPEC: [id number] KIKI: 12/23/15-[address]: Jeremy Godoy MD REQ: [id number] RECD: 12/24/15-140 STATUS: COMP _ SOURCE: VAGINAL SPDESC: ORDERED: Genital Culture COMMENTS: [id number] Procedure Result Reported Site Genital Culture Final 12/26/15- 1450 ML Organism 1 BILLY VAGINALIS - PRESUMPTIVE Quantity 3+ Organism 2 YEAST Quantity 2+ Organism 3 NORMAL SALVADOR Quantity 1+ * ML - MAIN LAB (PSC1) . END OF REPORT * ML=Testing performed at Main Lab DEPARTMENT OF PATHOLOGY, [address] [place] [address] Kevin Rebolledo M.D. Director [facility] # [id number] [facility] Severe Sepsis and Septic Shock Management Bundle Measure requires all lactic acids initially measuring >2.0 mmol/L be repeated. Procedures Date CPT Code Description Status 07/31/2016 69541 SC/Im Injections Completed 12/23/2015 63923 Anoscopy Diagnostic Completed Encounters Type Date Location Provider CPT E/M Dx Office Visit 05/04/2017 11:20a [place] [address] B18.2 F11.21 R19.7 R10.84 F17.210 J06.9 J03.90 Office Visit 04/07/2017 1:55p [place] [address] B18.2 F11.21 R10.84 G43.009 M54.9 Office Visit 03/15/2017 3:50p [place] [address] F25.0 F11.21 R10.84 G43.009 F17.210 Z23 Office Visit 03/02/2017 11:40a [place] [address] F11.20 F31.9 K21.9 M54.13 R10.84 F17.210 Office Visit 01/15/2017 9:15a [place] [address] F11.20 F31.9 R10.84 N91.2 Office Visit 12/29/2016 8:40a [place] [address] R10.84 F11.20 G43.009 M54.9 R31.9 F31.9 Office Visit 12/07/2016 10:05a [place] [address] R10.84 F11.20 G43.009 F31.9 M54.9 Office Visit 11/02/2016 4:10p [place] [address] R10.84 R19.7 F11.20 G43.009 N92.6 R10.30 F31.9 Office Visit 10/20/2016 2:40p [place] [address] A60.04 R10.84 M54.9 F11.20 G43.009 Office Visit 10/07/2016 2:35p [place] [address] R10.84 B00.9 F11.20 Office Visit 09/09/2016 2:35p [place] [address] R10.84 F11.20 F17.210 N76.0 Z11.3 N91.2 G43.009 R19.7 Office Visit 08/17/2016 2:30p [place] [address] R10.84 R19.7 F11.20 K08.89 Office Visit 08/03/2016 4:50p [place] [address] F11.20 R10.84 F31.9 R19.7 J02.0 Office Visit 07/31/2016 10:00a Main Office Jeremy Godoy M.D. 33459 J02.0 Office Visit 07/29/2016 11:25a [place] [address] R10.84 F11.20 F31.9 R31.9 F17.210 G25.81 J02.0 Office Visit 07/13/2016 9:45a [place] [address] R10.84 F11.20 R31.21 F31.9 F17.210 Office Visit 06/24/2016 2:35p [place] [address] R10.84 F11.20 R31.9 F31.9 Office Visit 06/17/2016 4:15p [place] [address] R10.84 R19.5 F11.20 F31.9 R31.9 Z79.899 Office Visit 12/23/2015 2:00p Main Office Jeremy Godoy M.D. 63054 Z71.89 R10.84 R19.5 Z80.49 Plan of Care 05/04/2017 - Cindy Lee PAB18.2 Chronic viral hepatitis CComments:Seeing GI (Dr. Barker) on 05/11.F11.21 Opioid dependence, in remissionComments:Recent inpatient treatment at [facility]. Patient doing very well on naltrexone, no replapses or cravings. Getting outpatient treatment at [facility]. [id number] Diarrhea, unspecifiedNew Medication:Diphenoxylate-Atropine 2.5-0.025 mgComments: Continue lomotil prn while awaiting colonoscopy and GI appt.R10.84 Generalized abdominal painComments:Chronic abdominal pain with diarrhea and intermittent blood and mucous in stool. Suspicious for IBD.Sx doing better recently. Pt will be getting EGD/colonoscopy soon.F17.210 Nicotine dependence, cigarettes, uncomplicatedComments:Smoking cessation counseling <10 minutes done today.J06.9 Acute upper respiratory infection, unspecifiedComments:Viral URI. Recommended OTC cold meds, rest, fluids, NSAIDs as needed. Recheck if sx not improving.J03.90 Acute tonsillitis, unspecifiedNew Medication:Medrol 4 mgComments:Rx for medrol for swelling. Pt already finished Abx course. Nystatin no longer needed.
[2017-05-25] MEDS ORDERED: NS 0.9% 1000 ML* 1,000 ML IV ONE (20:04)
[2017-05-25 20:36] LABS: ABS Basophils 0.1 10^3/ul (0-0.2); ABS Eosinophils 0.6 10^3/ul (0-0.6); ABS Lymphocytes 2.8 10^3/ul (1.0-4.8); ABS Monocytes 0.7 10^3/ul (0-0.8); ABS Nucleated RBC 0 10^3/ul; Eosinophil % 6.5 % (0-6); Hematocrit 39 % (35-47); Hemoglobin 13.1 g/dl (12.0-16.0); Lymphocyte % 30.7 % (25-47); Mean Corpuscular HGB Conc 34 g/dl (31-36); Mean Corpuscular Hemoglobin 29 pg (27-31); Mean Corpuscular Volume 85 fL (80-97); Mean Platelet Volume 8 um3 (7.4-10.4); Nucleated Red Blood Cells % 0; Platelet Count 307 10^3/ul (150-450); Red Blood Count 4.56 10^6/ul (4.0-5.4); Red Cell Distribution Width 13 % (10.5-15); White Blood Count 9.2 10^3/ul (3.5-10.8)
[2017-05-25 20:48] LABS: EGFR Non-African American 92.7 (>60)
[2017-05-25 22:41] LABS: Urine Appearance Clear; Urine Blood 1+ (Negative); Urine Color Yellow; Urine Ketones Negative (Negative); Urine Protein Negative (Negative); Urine Urobilinogen Negative (Negative)
--- NOTE | 2017-05-25 23:56 | ED ---
Todd Nazario Gabriel, scribed for Fran Yarbrough MD on 05/25/17 at 2355 . Progress - Progress Note Progress Note: This patient was signed out from Dr. Mo, pending disposition, awaiting Pelvic US. Pelvic US reveals a 3.1 cm left ovarian cyst without torsion or free fluid . The patients condition is stable and will be discharged to home with Dx of left ovarian cyst and will follow up with PCP. The patient has declined to take antibiotics. Course/Dx - Diagnoses Provider Diagnoses: Left ovarian cyst The documentation as recorded by the Todd knutson Gabriel accurately reflects the service I personally performed and the decisions made by , Fran Yarbrough MD.
[2017-05-26 00:13] VITALS: BP 0/0
--- NOTE | 2017-05-26 07:16 | RAD ---
INDICATION: Left pelvic pain COMPARISON: Most recent pelvic ultrasound November 19, [address] of the abdomen and pelvis dated May 11, 2017 TECHNIQUE: Real-time transabdominal and transvaginal ultrasound examination of the female pelvis including grayscale and Doppler color flow imaging. FINDINGS: Uterus: The uterus is normal in size and echogenicity measuring 6.4 x 2.4 x 3.3 cm. The endometrial stripe is smooth and uniform measuring 3 mm in thickness. Ovaries: The right and left ovary measure 3.2 x 2.8 x 2.5 cm and 4.4 x 3.2 x 3.1 cm, respectively. Normal arterial and venous waveforms are identified. Within the left ovary there is an anechoic and avascular cystic structure measuring 2.1 cm in greatest dimension. There is no free fluid in the cul-de-sac. IMPRESSION: Normal and age-appropriate pelvic ultrasound.
== END 2017-05-26 00:05 | disposition home or self-care (01) ==
LOC: ED 19:20
DX: N83.202 Unspecified ovarian cyst, left side (principal)
CPT/HCPCS: 36415; 76830; 80053; 80307; 81003; 81015; 85025; 86803; 87086; 87491; 87591; 96360; 99283

== ENCOUNTER 2017-06-25 10:33 | Emergency (ER) | payer BC, MEDICAID ==
[2017-06-25 10:52] VITALS: BP 144/83
[2017-06-25] MEDS ORDERED: Ondansetron ODT TAB* 4 MG PO ONE (11:27)
--- NOTE | 2017-06-27 15:21 | UC ---
Raffaele Nazario Jennifer, scribed for Stormy Strange DO on 06/25/17 at 1102 . General HPI - HPI Summary HPI Summary: The pt is a 27 y/o female who complains of a sore throat that began yesterday, cough, chest pain, and severe abdominal pain. She reports shes had diffuse lower abdominal pain for her whole life that is a constant 6/10 and low back pain that both worsened one hour ago to a 9/10. The patient reports chest pain that is described as a pressure and tightness underneath her breast area. The patient additionally complains of intermittent nausea and vomiting for the past month, chills, shortness of breath, headache, increased frequency of urination, dysuria, hematuria for a couple of days, and kidney stone pain on her right side that is rated a 7/10. She is not currently on antibiotics. The patient has a history of anxiety, depression, bipolar, and schizophrenia. She was in rehab for opiate abuse. She used hydrocodone this morning because she couldnt take the pain anymore. - History of Current Complaint Chief Complaint: UCRespiratory Stated Complaint: SORE THROAT,COUGH Time Seen by Provider: 06/25/17 10:38 Hx Obtained From: Patient Hx Last Menstrual Period: UNKNOWN Onset/Duration: Gradual Onset, Still Present Timing: Constant Onset Severity: Moderate Current Severity: Moderate Pain Intensity: 7 Associated Signs & Symptoms: Positive: Other - sore throat, cough, chest pain, abdominal pain, back pain, kidney stone, nausea, vomiting, hematuria, dysuria - Allergy/Home Medications Allergies/Adverse Reactions: Allergies Allergy/AdvReac Type Severity Reaction Status Date / Time MS Amoxicillin Allergy Hives Verified 06/25/17 10:40 [From Augmentin] MS Clavulanic Acid Allergy Hives Verified 06/25/17 10:40 [From Augmentin] MS Penicillins [Penicillins] Allergy Hives Verified 06/25/17 10:40 CAT Allergy Hives Uncoded 06/25/17 10:40 PMH/Surg Hx/FS Hx/Imm Hx - Additional Past Medical History Additional PMH: Restless Leg Syndrome Previously Healthy: No GI/ History: Kidney Stones, Other Other GI/ History: Esophageal Erosion, Hiatal hernia, Ovarian Cyst, UTI Psychological History: Anxiety, Depression, Bipolar Disorder, Schizophrenia Other History Of: Hepatitis C - Surgical History Surgical History: Yes Surgery Procedure, Year, and Place: 06/14/14 - Family History Known Family History: Positive: Hypertension, Diabetes, Other - COLON and CERVICAL CA Negative: Cardiac Disease - Social History Alcohol Use: None Substance Use Type: Prescribed Substance Use Comment - Amount & Last Used: opiates now TOOK A NARCOTIC/VICODIN Smoking Status (MU): Heavy Every Day Tobacco Smoker Type: Cigarettes Amount Used/How Often: 1/2 PPD Length of Time of Smoking/Using Tobacco: 6 YEARS Have You Smoked in the Last Year: Yes Household Exposure Type: Cigarettes - Immunization History Most Recent Influenza Vaccination: NOT UTD Review of Systems Constitutional: Negative - Fever, Chills ENT: Sore Throat Respiratory: Shortness Of Breath, Cough Cardiovascular: Chest Pain Gastrointestinal: Abdominal Pain, Vomiting, Nausea Genitourinary: Dysuria, Hematuria, Frequency - Increased, Other - Kidney stone Musculoskeletal: Myalgia - Back pain Neurological: Headache Psychological: Anxious All Other Systems Reviewed And Are Negative: Yes Physical Exam - Summary Physical Exam Summary: Appearance: Tearful, Moderate Pain Distress, Well-Nourished Eyes: conjunctiva clear, no discharge ENT: Hearing grossly normal, no muffled/hoarse voice. Neck: Normal, Supple Respiratory/Lung Sounds: Lungs clear, Normal breath sounds, No respiratory distress, No accessory muscle use Cardiovascular: Tachycardia, Regular Rhythm, No murmur Abdomen: Diffusely tender, exquisite tenderness in LLQ, CVA tenderness bilaterally. Soft, no guarding, not distended Bowel Sounds: Present Musculoskeletal: Normal Neurological: Alert, muscle tone normal Psychiatric: Normal, age appropriate behavior Skin: Normal, Warm, Dry, Normal color Triage Information Reviewed: Yes Vital Signs: Initial Vital Signs Temp 98.1 F 06/25/17 10:42 Pulse 114 06/25/17 10:42 Resp 20 06/25/17 10:42 BP 144/83 06/25/17 10:42 Pulse Ox 100 06/25/17 10:42 Vital Signs Reviewed: Yes Course/Dx - Course Course Of Treatment: Medications reviewed. Allergies reviewed. High blood pressure noted. The patient has been encouraged to quit smoking. I recommended the patient go to the ER immediately and have someone else drive her there. - Differential Dx - Multi-Symptom Provider Diagnoses: Elevated blood pressure without diagnosis of hypertension, Acute abdominal pain Discharge - Discharge Plan Condition: Stable Disposition: HOME Patient Education Materials: Acute Abdominal Pain (ED), Acute Abdominal Pain ( DC) Referrals: Rosa ARAUZ,Cindy Lynn [Primary Care Provider] - Additional Instructions: Your symptoms make us concerned for possible ovarian cyst rupture or infected kidney stone, both of which are beyond the scope of this clinic. We recommend you go immediately to the ER for a complete further evaluation and treatment. Risks associated with your condition include worsening pain, worsening infection , sepsis, and . Go the ER immediately. We recommend that you have someone else drive you there. The documentation as recorded by the Raffaele knutson Jennifer accurately reflects the service I personally performed and the decisions made by , Stormy Strange DO.
== END 2017-06-25 11:40 | disposition home or self-care (01) ==
LOC: UCEAST 10:33
DX: R10.30 Lower abdominal pain, unspecified (principal); J02.9 Acute pharyngitis, unspecified; R05 Cough; R07.89 Other chest pain; R11.2 Nausea with vomiting, unspecified; R31.9 Hematuria, unspecified; R30.0 Dysuria; R03.0 Elevated blood-pressure reading, without diagnosis of hypertension; Z87.442 Personal history of urinary calculi; Z88.1 Allergy status to other antibiotic agents; Z88.0 Allergy status to penicillin; F17.210 Nicotine dependence, cigarettes, uncomplicated
CPT/HCPCS: 99212; A9270-GY; G0463

== ENCOUNTER 2017-06-25 11:58 | Emergency (ER) | payer BC, MEDICAID ==
[2017-06-25] MEDS ORDERED: NS 0.9% 1000 ML* 1,000 ML IV ONE (12:28)
[2017-06-25 12:54] LABS: ABS Basophils 0 10^3/ul (0-0.2); ABS Eosinophils 0.5 10^3/ul (0-0.6); ABS Lymphocytes 2.4 10^3/ul (1.0-4.8); ABS Monocytes 0.8 10^3/ul (0-0.8); ABS Neutrophils 10.1 10^3/ul (1.5-7.7); ABS Nucleated RBC 0 10^3/ul; Eosinophil % 3.8 % (0-6); Hematocrit 36 % (35-47); Hemoglobin 12.4 g/dl (12.0-16.0); Lymphocyte % 17.4 % (25-47); Mean Corpuscular HGB Conc 34 g/dl (31-36); Mean Corpuscular Hemoglobin 29 pg (27-31); Mean Corpuscular Volume 85 fL (80-97); Mean Platelet Volume 8 um3 (7.4-10.4); Nucleated Red Blood Cells % 0; Platelet Count 260 10^3/ul (150-450); Red Blood Count 4.29 10^6/ul (4.0-5.4); Red Cell Distribution Width 13 % (10.5-15); White Blood Count 13.9 10^3/ul (3.5-10.8)
[2017-06-25 13:09] LABS: EGFR Non-African American 119.5 (>60)
[2017-06-25] MEDS ORDERED: Potassium Chloride LIQUID* 20 MEQ PACKET PO ONE (14:19)
[2017-06-25 14:36] VITALS: BP 141/103
[2017-06-25 14:52] LABS: Urine Appearance Clear; Urine Blood Negative (Negative); Urine Color Yellow; Urine Ketones Trace (Negative); Urine Protein Negative (Negative); Urine Specific Gravity 1.013 (1.010-1.030); Urine Urobilinogen Negative (Negative)
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
== END 2017-06-25 14:35 | disposition left against medical advice (07) ==
LOC: ED 11:58
DX: R10.30 Lower abdominal pain, unspecified (principal)
CPT/HCPCS: 36415; 80053; 80307; 81003; 85025; 99283

== ENCOUNTER 2017-08-13 13:06 | Emergency (ER) | payer BC, MEDICAID, OTHER ==
[2017-08-13] MEDS ORDERED: cefTRIAXone VIAL(*) 250 MG VIAL IM ONE (15:04)
[2017-08-13] MEDS ORDERED: Azithromycin TAB* 250 MG PO ONE (15:04)
[2017-08-13] MEDS ORDERED: Levonorgestrel 1.5 MG TAB PO ONE (15:04)
[2017-08-13] MEDS ORDERED: metroNIDAZOLE TAB* 250 MG PO ONE (15:04)
[2017-08-13] MEDS ORDERED: Tenofovir/Emtricitabine(*) TAB PO ONE (15:04)
[2017-08-13] MEDS ORDERED: Raltegravir* 400 MG TAB PO ONE (15:04)
[2017-08-13] MEDS ORDERED: Ondansetron ODT TAB* 4 MG PO ONE (15:09)
[2017-08-13] MEDS ORDERED: Tetan/Diph/Pertus SYR(Tdap)* 0.5 ML SYR(BOOSTRIX) use SYR IM ONE (15:19)
[2017-08-13] MEDS ORDERED: Lidocaine 1%* 5 ML VIAL ONE (15:40)
[2017-08-13 18:15] VITALS: BP 114/65
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
== END 2017-08-13 18:14 | disposition home or self-care (01) ==
LOC: ED 13:06
DX: T74.21XA Adult sexual abuse, confirmed, initial encounter (principal); Y07.9 Unspecified perpetrator of maltreatment and neglect; B19.20 Unspecified viral hepatitis C without hepatic coma; N76.0 Acute vaginitis; Z32.02 Encounter for pregnancy test, result negative; Z11.4 Encounter for screening for human immunodeficiency virus [HIV]; Z23 Encounter for immunization; R01.1 Cardiac murmur, unspecified; K50.90 Crohn's disease, unspecified, without complications; F41.0 Panic disorder [episodic paroxysmal anxiety]; F31.9 Bipolar disorder, unspecified; F17.210 Nicotine dependence, cigarettes, uncomplicated
CPT/HCPCS: 36415; 84702; 86703; 86706; 86803; 87340; 87480; 87491; 87510; 87591; 87661; 90471; 90715; 96372; 99284; A9270-GY; J0696

== ENCOUNTER 2017-09-18 05:47 | Emergency (ER) | payer BC, MEDICAID ==
[2017-09-18] MEDS ORDERED: Hydrocortisone 0.5% OINT* 1 APPLIC TUBE TOPICAL ONE (06:28)
[2017-09-18] MEDS ORDERED: DOXYcycline CAP(*) 100 MG PO ONE (07:04)
[2017-09-18] MEDS ORDERED: cefTRIAXone VIAL(*) 250 MG VIAL IM ONE (07:04)
[2017-09-18] MEDS ORDERED: Fluconazole 100 MG TAB* TAB PO ONE (07:08)
[2017-09-18 08:19] LABS: ABS Basophils 0.1 10^3/ul (0-0.2); ABS Eosinophils 0.4 10^3/ul (0-0.6); ABS Lymphocytes 2.4 10^3/ul (1.0-4.8); ABS Monocytes 0.9 10^3/ul (0-0.8); ABS Neutrophils 6.8 10^3/ul (1.5-7.7); ABS Nucleated RBC 0 10^3/ul; Hematocrit 38 % (35-47); Hemoglobin 12.9 g/dl (12.0-16.0); Lymphocyte % 22.7 % (25-47); Mean Corpuscular HGB Conc 34 g/dl (31-36); Mean Corpuscular Hemoglobin 29 pg (27-31); Mean Corpuscular Volume 86 fL (80-97); Mean Platelet Volume 8.7 um3 (7.4-10.4); Nucleated Red Blood Cells % 0; Platelet Count 218 10^3/ul (150-450); Red Blood Count 4.44 10^6/ul (4.0-5.4); Red Cell Distribution Width 14 % (10.5-15); White Blood Count 10.7 10^3/ul (3.5-10.8)
[2017-09-18 08:30] LABS: EGFR Non-African American 103.7 (>60)
[2017-09-18 08:33] LABS: Urine Appearance Cloudy; Urine Blood 1+ (Negative); Urine Color Yellow; Urine Ketones Negative (Negative); Urine Protein Negative (Negative); Urine Urobilinogen Negative (Negative)
[2017-09-18] MEDS ORDERED: Ketorolac INJ* 60 MG/2 ML VIAL IM ONE (08:39)
[2017-09-18 09:16] VITALS: BP 122/84
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
--- NOTE | 2017-09-19 07:37 | PN ---
Progress Note - Progress Note Date of Service: 09/18/17 Note: Vaginal DNA final negative Gardnerella, positive Jihan Patient was treated appropriately for Jihan with fluconazole Nothing further at this time JIM Harper
== END 2017-09-18 09:14 | disposition home or self-care (01) ==
LOC: ED 05:47
DX: B37.9 Candidiasis, unspecified (principal); N73.9 Female pelvic inflammatory disease, unspecified
CPT/HCPCS: 36415; 80053; 81003; 81015; 85025; 86140; 87086; 87480; 87491; 87510; 87591; 87660; 87661; 96372; 99282; A9270-GY; J0696; J1885

== ENCOUNTER 2017-11-10 06:00 | Emergency (ER) | payer BC, MEDICAID ==
--- NOTE | 2017-11-10 06:12 | ED ---
Complex/Multi-Sys Presentation - HPI Summary HPI Summary: Patient is a 27-year-old female who presents emergency department for numerous complaints. Her main complaint is abdominal pain and chest burning with inspiration and coughing. Pt. also notes she feels SOB since it hurts to take a deep breath in. Patient states she's had an ongoing cough for about one month. She also has a history of a hiatal hernia and GERD for which she has seen GI. She is currently on omeprazole but states it is not working. She states occasionally she has blood tinged emesis and sputum. She denies diarrhea , fever, urinary symptoms, vaginal discharge or bleeding. Symptoms are moderate in severity. Coughing and moving makes symptoms worse. Nothing makes symptoms better. Patient also notes she has a "lump" on her chest she noticed last night. Past medical history of bipolar disorder. - History Of Current Complaint Chief Complaint: EDGeneral Time Seen by Provider: 11/10/17 06:10 Hx Obtained From: Patient - Allergies/Home Medications Allergies/Adverse Reactions: Allergies Allergy/AdvReac Type Severity Reaction Status Date / Time amoxicillin [From Augmentin] Allergy Hives Verified 11/10/17 06:13 clavulanic acid Allergy Hives Verified 11/10/17 06:13 [From Augmentin] Penicillins Allergy Hives Verified 11/10/17 06:13 CAT Allergy Hives Uncoded 11/10/17 06:13 Home Medications: Home Medications Meloxicam(NF) [Mobic(NF)] 15 mg PO DAILY 11/10/17 [History Confirmed 11/10/17] Naltrexone TAB* 50 mg PO DAILY 11/10/17 [History Confirmed 11/10/17] busPIRone TAB* [Buspar TAB*] 10 mg PO BID 11/10/17 [History Confirmed 11/10/17] PMH/Surg Hx/FS Hx/Imm Hx Previously Healthy: Yes Endocrine/Hematology History: Denies: Hx Diabetes, Hx Thyroid Disease Cardiovascular History: Reports: Other Cardiovascular Problems/Disorders - HEART MURMUR Denies: Hx Hypertension, Hx Pacemaker/ICD Respiratory History: Denies: Hx Asthma, Hx Chronic Obstructive Pulmonary Disease (COPD) GI History: Reports: Hx Crohn's Disease - possible, Hx Gastrointestinal Bleed Denies: Hx Ulcer History: Reports: Other Problems/Disorders - hematuria Denies: Hx Renal Disease Musculoskeletal History: Reports: Hx Back Problems - muscle spasms Sensory History: Denies: Hx Hearing Aid Psychiatric History: Reports: Hx Anxiety, Hx Depression, Hx Panic Disorder - ANXIETY/DEPRESSION, Hx Bipolar Disorder - sees mental health, Hx Substance Abuse Denies: Hx Eating Disorder, Hx of Violent Episodes Against Others - Surgical History Surgery Procedure, Year, and Place: 06/14/14 - Immunization History Date of Tetanus Vaccine: unk Date of Influenza Vaccine: has not received Infectious Disease History: No Infectious Disease History: Denies: Hx Clostridium Difficile, Hx Hepatitis, Hx Human Immunodeficiency Virus (HIV), Hx of Known/Suspected MRSA, Hx Shingles, Hx Tuberculosis, Hx Known/ Suspected VRE, Hx Known/Suspected VRSA, History Other Infectious Disease, Traveled Outside the [place] in Last 30 Days - Family History Known Family History: Positive: Cardiac Disease - RBBB (mother), Hypertension, Diabetes, Other - COLON and CERVICAL CA - Social History Occupation: Unemployed Lives: Alone Alcohol Use: None Hx Substance Use: Yes Substance Use Type: Reports: None Substance Use Comment - Amount & Last Used: opiates now TOOK A NARCOTIC/VICODIN Hx Tobacco Use: Yes Smoking Status (MU): Heavy Every Day Tobacco Smoker Type: Cigarettes Amount Used/How Often: 1/2 PPD Length of Time of Smoking/Using Tobacco: 6 YEARS Have You Smoked in the Last Year: Yes Review of Systems Constitutional: Negative Eyes: Negative Positive: Sore Throat Cardiovascular: Negative Positive: Shortness Of Breath, Cough Positive: Abdominal Pain, Vomiting, Nausea. Negative: Diarrhea Genitourinary: Negative Negative: burning, dysuria, discharge Musculoskeletal: Negative Positive: Other - "Lump" on chest Neurological: Negative Positive: Anxious All Other Systems Reviewed And Are Negative: Yes Physical Exam Triage Information Reviewed: Yes Vital Signs On Initial Exam: Initial Vitals Temp Pulse Resp BP Pulse Ox 98.3 F 102 18 129/96 100 11/10/17 06:03 11/10/17 06:03 11/10/17 06:03 11/10/17 06:03 11/10/17 06:03 Vital Signs Reviewed: Yes Appearance: Positive: Well-Appearing - Pt. sitting up in bed, very anxious. Pressured speach. Skin: Positive: Warm, Dry, Other - I do not appreciate any mass to the chest wall in the area of pt.'s concern. Head/Face: Positive: Normal Head/Face Inspection Eyes: Positive: Normal Neck: Positive: Supple. Negative: Nuchal Rigidity Respiratory/Lung Sounds: Positive: Clear to Auscultation, Breath Sounds Present Cardiovascular: Positive: Normal, RRR Abdomen Description: Positive: Nontender, Soft Musculoskeletal: Positive: Normal Neurological: Positive: Normal, CN Intact II-III Psychiatric: Positive: Anxious Diagnostics - Vital Signs Vital Signs Temp Pulse Resp BP Pulse Ox 11/10/17 06:03 98.3 F 102 18 129/96 100 - Laboratory Result Diagrams: 11/10/17 06:39 11/10/17 06:39 Lab Statement: Any lab studies that have been ordered have been reviewed, and results considered in the medical decision making process. Complex Multi-Symp Course/Dx Course Of Treatment: Pt. presenting for numerous complaints. Her pain complain is SOB, epigastric pain, and pain with inspiration. She is mildly tachycardic. Given her symptoms. CTA chest per radiology: IMPRESSION: 1. NO PULMONARY ARTERIAL FILLING DEFECT TO SUGGEST PULMONARY EMBOLISM. 2. MILDLY ENLARGED SUBCARINAL AND RIGHT HILAR LYMPH NODES. Discharge - Discharge Plan Condition: Good Disposition: HOME Patient Education Materials: Gastroesophageal Reflux Disease (ED), Chronic Cough (ED) Referrals: Rosa ARAUZ,Cindy Lynn [Primary Care Provider] - Additional Instructions: Call your PCP and GI doctor today to schedule an appointment Continue home medications as directed Take carafate as directed Return to ER if symptoms change or worsen - Billing Disposition and Condition Condition: GOOD Disposition: Home
[2017-11-10] MEDS ORDERED: NS 0.9% 1000 ML* 1,000 ML IV ONE (06:22)
[2017-11-10] MEDS ORDERED: Ketorolac INJ* 30 MG/ML 1 ML VIAL IV PUSH ONE (06:23)
[2017-11-10] MEDS ORDERED: Al Hydrox/Mg Hydrox/Simet LIQ* 30 ML UDC PO ONE (06:23)
[2017-11-10] MEDS ORDERED: Lidocaine 2% VISCOUS* 15 ML UDC PO ONE (06:23)
[2017-11-10 06:49] LABS: ABS Basophils 0.1 10^3/ul (0-0.2); ABS Eosinophils 0.4 10^3/ul (0-0.6); ABS Lymphocytes 3.4 10^3/ul (1.0-4.8); ABS Monocytes 0.7 10^3/ul (0-0.8); ABS Nucleated RBC 0 10^3/ul; Eosinophil % 4.6 % (0-6); Hematocrit 36 % (35-47); Hemoglobin 12.7 g/dl (12.0-16.0); Lymphocyte % 35.4 % (25-47); Mean Corpuscular HGB Conc 35 g/dl (31-36); Mean Corpuscular Hemoglobin 30 pg (27-31); Mean Corpuscular Volume 84 fL (80-97); Mean Platelet Volume 7.5 um3 (7.4-10.4); Nucleated Red Blood Cells % 0.1; Platelet Count 273 10^3/ul (150-450); Red Blood Count 4.28 10^6/ul (4.00-5.40); Red Cell Distribution Width 14 % (10.5-15); White Blood Count 9.7 10^3/ul (3.5-10.8)
[2017-11-10 07:04] LABS: EGFR Non-African American 113.1 (>60)
[2017-11-10] MEDS ORDERED: Iohexol 350* (CONTRAST) 500 ML MDV IV ONE (07:12)
[2017-11-10] MEDS ORDERED: Ondansetron ODT TAB* 4 MG PO ONE (07:14)
--- NOTE | 2017-11-10 07:58 | RAD ---
HISTORY: cough COMPARISONS: March 16, 2015 VIEWS: 4: Frontal dual-energy and lateral views of the chest. FINDINGS: CARDIOMEDIASTINAL SILHOUETTE: The cardiomediastinal silhouette is normal. NATALIE: The natalie are normal. PLEURA: The costophrenic angles are sharp. No pleural abnormalities are noted. LUNG PARENCHYMA: There is hyperinflation with flattening of the diaphragm and expansion of the retrosternal airspace.. ABDOMEN: The upper abdomen is clear. There is no subphrenic gas. BONES AND SOFT TISSUES: No bone or soft tissue abnormalities are noted. OTHER: None. IMPRESSION: HYPERINFLATION WHICH CAN BE SEEN WITH COPD OR REACTIVE AIRWAY DISEASE. NO ACTIVE CARDIOPULMONARY DISEASE.
--- NOTE | 2017-11-10 08:36 | RAD ---
HISTORY: SOB, pain, elevated d dimer COMPARISONS: None TECHNIQUE: Multiple contiguous axial CT scans of the chest were obtained after the administration of nonionic intravenous contrast, timed to the pulmonary arterial phase of contrast enhancement.. Coronal and sagittal multiplanar reformations are also submitted for review. FINDINGS: NECK AND THYROID: The lower neck and thyroid are unremarkable. CHEST WALL: There is no lower cervical, axillary, or supraclavicular lymphadenopathy by size criteria. HEART AND PERICARDIUM: The heart is unremarkable. AORTA AND PULMONARY VASCULATURE: There is no pulmonary arterial filling defect to suggest pulmonary embolism. There is no linear filling defect within the aorta to suggest aortic dissection. MEDIASTINUM: There is a 1.1 c axis subcarinal lymph node. NATALIE: There are bilateral hilar lymph nodes measuring up to 1.1 cm on the right. AIRWAY AND ESOPHAGUS: The airway is unremarkable, without endobronchial filling defect. The esophagus is grossly normal. LUNG PARENCHYMA: The lungs are clear. PLEURA: No pleural abnormalities are noted. UPPER ABDOMEN: The upper abdomen is unremarkable. BONES AND SOFT TISSUES: No bone or soft tissue abnormalities are noted. OTHER: None. IMPRESSION: 1. NO PULMONARY ARTERIAL FILLING DEFECT TO SUGGEST PULMONARY EMBOLISM. 2. MILDLY ENLARGED SUBCARINAL AND RIGHT HILAR LYMPH NODES.
[2017-11-10 09:21] VITALS: BP 138/87
== END 2017-11-10 09:20 | disposition home or self-care (01) ==
LOC: ED 06:00
DX: J02.9 Acute pharyngitis, unspecified (principal); R06.02 Shortness of breath; R11.2 Nausea with vomiting, unspecified; R10.9 Unspecified abdominal pain; F41.9 Anxiety disorder, unspecified; F17.210 Nicotine dependence, cigarettes, uncomplicated
CPT/HCPCS: 36415; 71046; 71275; 80053; 83690; 84702; 85025; 85379; 96374; 99284; A9270-GY; J1885; Q9967

== ENCOUNTER 2017-12-23 08:00 | Emergency (ER) | payer BC, MEDICAID ==
[2017-12-23 08:09] VITALS: BP 101/51
[2017-12-23] MEDS ORDERED: Ciprofloxacin TAB* 500 MG PO ONE (09:06)
[2017-12-23] MEDS ORDERED: Ketorolac INJ* 30 MG/ML 1 ML VIAL IM ONE (09:07)
--- NOTE | 2017-12-23 09:16 | UC ---
Back Pain HPI - HPI Summary HPI Summary: 27-year-old female that had the onset of left flank pain as well as a fever of 103 associated with 1 episode of vomiting. The left flank/back pain has persisted. It is only febrile the first day of her symptoms. He denies any UTI symptoms. No days ago she had an ultrasound of her abdomen and pelvis. There is no evidence of any obstructing kidney stones. She did have debris noted in her bladder. She denies any vaginal discharge or itching. She has had no cough chest pain or shortness of breath. - History of Current Complaint Chief Complaint: UCBackPain Stated Complaint: BACK PAIN Time Seen by Provider: 12/23/17 08:21 Hx Obtained From: Patient Hx Last Menstrual Period: nexplan Onset/Duration: Gradual Onset, Lasting Days Timing: Constant Severity Initially: Severe Severity Currently: Severe Pain Intensity: 10 Pain Scale Used: 0-10 Numeric Back Pain: Is Discrete @ - left paraspinous muscle Character: Spasmodic, Stiffness Aggravating Factor(s): Movement, Bending, Other - deep breath Full Body (No Head): 1 - tender/appears tense/swollen - Allergies/Home Medications Allergies/Adverse Reactions: Allergies Allergy/AdvReac Type Severity Reaction Status Date / Time amoxicillin [From Augmentin] Allergy Hives Verified 12/23/17 08:09 clavulanic acid Allergy Hives Verified 12/23/17 08:09 [From Augmentin] Penicillins Allergy Hives Verified 12/23/17 08:09 CAT Allergy Hives Uncoded 12/23/17 08:09 Home Medications: Home Medications Naltrexone INJ [Vivitrol INJ] 380 mg IM MONTHLY 12/23/17 [History Confirmed 11/02] PMH/Surg Hx/FS Hx/Imm Hx Previously Healthy: Yes - hx opiate abuse Other History Of: Hepatitis C - Surgical History Surgical History: Yes Surgery Procedure, Year, and Place: 06/14/14 - Family History Known Family History: Positive: Cardiac Disease - RBBB (mother), Hypertension, Diabetes, Other - COLON and CERVICAL CA - Social History Alcohol Use: None Substance Use Type: None Substance Use Comment - Amount & Last Used: opiates now TOOK A NARCOTIC/VICODIN Smoking Status (MU): Heavy Every Day Tobacco Smoker Type: Cigarettes Amount Used/How Often: 1/2 PPD Length of Time of Smoking/Using Tobacco: 6 YEARS Have You Smoked in the Last Year: Yes Household Exposure Type: Cigarettes - Immunization History Most Recent Influenza Vaccination: NOT UTD Review of Systems Constitutional: Negative Skin: Negative Eyes: Negative ENT: Negative Respiratory: Negative Cardiovascular: Negative Gastrointestinal: Negative Genitourinary: Negative Motor: Negative Neurovascular: Negative Musculoskeletal: Myalgia Neurological: Negative Psychological: Negative All Other Systems Reviewed And Are Negative: Yes Physical Exam Triage Information Reviewed: Yes Appearance: Well-Appearing, No Pain Distress, Well-Nourished Vital Signs: Initial Vital Signs Temp 98.5 F 12/23/17 08:04 Pulse 106 12/23/17 08:04 Resp 21 12/23/17 08:04 BP 101/51 12/23/17 08:04 Pulse Ox 100 12/23/17 08:04 Vital Signs Reviewed: Yes Eyes: Positive: Conjunctiva Clear ENT: Positive: Hearing grossly normal. Negative: Nasal congestion, Nasal drainage, Trismus, Muffled voice, Hoarse voice Neck: Positive: Supple, Nontender, No Lymphadenopathy Respiratory: Positive: Lungs clear, Normal breath sounds, No respiratory distress, No accessory muscle use Cardiovascular: Positive: RRR, No Murmur Abdomen Description: Positive: CVA Tenderness (L). Negative: Nontender - luq tenderness Bowel Sounds: Positive: Present Musculoskeletal: Positive: ROM Intact, No Edema Neurological: Positive: Alert Psychological Exam: Normal Skin Exam: Normal Back Pain Course/Dx - Differential Dx/Diagnosis Provider Diagnoses: pyelonephritis. left paraspinous muscle tenderness/spasm Discharge - Sign-Out/Discharge Documenting (check all that apply): Patient Departure All imaging exams completed and their final reports reviewed: No Studies - Discharge Plan Condition: Stable Disposition: HOME Prescriptions: Ciprofloxacin HCl [Cipro] 250 mg PO BID #14 tablet Cyclobenzaprine TAB* [Flexeril TAB*] 5 - 10 mg PO TID PRN #15 tab PRN Reason: Spasms Patient Education Materials: Kidney Infection (ED), Back Pain (ED) Referrals: Rosa ARAUZ,Cindy Lynn [Primary Care Provider] - As Soon As Possible Additional Instructions: urine culture pending TO ER: if high fevers recur if vomiting recurs if not better in 48 hours - Billing Disposition and Condition Condition: STABLE Disposition: Home
== END 2017-12-23 09:45 | disposition home or self-care (01) ==
LOC: UCEAST 08:00
DX: N10 Acute pyelonephritis (principal); M62.838 Other muscle spasm
CPT/HCPCS: 81003; 87077; 87086; 87186; 96372; 99212; A9270-GY; G0463; J1885

== ENCOUNTER 2018-01-11 16:24 | Emergency (ER) | payer BC, MEDICAID ==
[2018-01-11 16:44] VITALS: BP 128/81
--- NOTE | 2018-01-11 16:47 | UC ---
Throat Pain/Nasal Denny HPI - HPI Summary HPI Summary: 27 yo female presents with hoarse voice and sore throat that began this morning. She works as a quill cleaner in various people's houses and is concerned she may have strep as one of her client's children was dx'd with strep. She woke this morning with a sore throat and hoarse voice, but her symptoms have improved throughout the day. She has not taken anything OTC. Denies fever, chills, headache, cough, SOB, chest pain, rash. - History of Current Complaint Chief Complaint: UCRespiratory Stated Complaint: SORE THROAT Time Seen by Provider: 01/11/18 16:46 Hx Obtained From: Patient Hx Last Menstrual Period: 2 years ago Onset/Duration: Sudden Onset Severity: Mild Pain Intensity: 2 Pain Scale Used: 0-10 Numeric - Allergies/Home Medications Allergies/Adverse Reactions: Allergies Allergy/AdvReac Type Severity Reaction Status Date / Time amoxicillin [From Augmentin] Allergy Hives Verified 01/11/18 16:44 clavulanic acid Allergy Hives Verified 01/11/18 16:44 [From Augmentin] Penicillins Allergy Hives Verified 01/11/18 16:44 CAT Allergy Hives Uncoded 01/11/18 16:44 PMH/Surg Hx/FS Hx/Imm Hx Psychological History: Anxiety Other History Of: Hepatitis C - Surgical History Surgical History: Yes Surgery Procedure, Year, and Place: 06/14/14 - Family History Known Family History: Positive: Cardiac Disease - RBBB (mother), Hypertension, Diabetes, Other - COLON and CERVICAL CA - Social History Occupation: Employed Full-time Lives: With Family Alcohol Use: None Substance Use Type: None Substance Use Comment - Amount & Last Used: opiates hx Smoking Status (MU): Heavy Every Day Tobacco Smoker Type: Cigarettes Amount Used/How Often: 1/2 PPD Length of Time of Smoking/Using Tobacco: 6 YEARS Have You Smoked in the Last Year: Yes Household Exposure Type: Cigarettes - Immunization History Most Recent Influenza Vaccination: NOT UTD Review of Systems Constitutional: Negative Skin: Negative Eyes: Negative ENT: Sore Throat Respiratory: Negative Cardiovascular: Negative Gastrointestinal: Negative Neurovascular: Negative Neurological: Negative Psychological: Negative All Other Systems Reviewed And Are Negative: Yes Physical Exam - Summary Physical Exam Summary: GENERAL: NAD. WDWN. No pain distress. SKIN: No rashes, sores, lesions, or open wounds. HEENT: Head: AT/NC Eyes: Conjunctiva clear without inflammation or discharge. Ears: Hearing grossly normal. TMs intact, no bulging, erythema, or edema. Nose: Nasal mucosa pink and moist. NTTP maxillary and frontal sinus. Throat: Posterior oropharynx mild erythema. No tonsillar enlargement. No exudates. Uvula midline. No hoarse voice or muffled voice. NECK: Supple. Nontender. No lymphadenopathy. CHEST: CTAB. No r/r/w. No accessory muscle use. Breathing comfortably and in no distress. CV: RRR. Without m/r/g. Pulses intact. Cap refill <2seconds NEURO: Alert. PSYCH: Age appropriate behavior. Triage Information Reviewed: Yes Vital Signs: Initial Vital Signs Temp 98.3 F 01/11/18 16:39 Pulse 88 01/11/18 16:39 Resp 15 01/11/18 16:39 BP 128/81 01/11/18 16:39 Pulse Ox 100 01/11/18 16:39 Vital Signs Reviewed: Yes Throat Pain/Nasal Course/Dx - Course Course Of Treatment: Suspect viral pharyngitis. Pt did not want a strep test as she could not wait any longer in the clinic. Advised to do throat water gargles and take ibuprofen if needed for discomfort. Pt agreeable to plan and will return if symptoms persist. - Differential Dx/Diagnosis Provider Diagnoses: Pharyngitis Discharge - Sign-Out/Discharge Documenting (check all that apply): Patient Departure All imaging exams completed and their final reports reviewed: No Studies - Discharge Plan Condition: Stable Disposition: HOME Patient Education Materials: Pharyngitis (ED) Referrals: Rosa ARAUZ,Cindy Lynn [Primary Care Provider] - Additional Instructions: If you develop a fever, shortness of breath, chest pain, new or worsening symptoms - please call your PCP or go to the ED. - Billing Disposition and Condition Condition: STABLE Disposition: Home
== END 2018-01-11 17:00 | disposition home or self-care (01) ==
LOC: UCEAST 16:24
DX: J02.9 Acute pharyngitis, unspecified (principal); Z88.1 Allergy status to other antibiotic agents; Z88.0 Allergy status to penicillin; F17.210 Nicotine dependence, cigarettes, uncomplicated
CPT/HCPCS: 99211; G0463

== ENCOUNTER 2018-01-13 20:49 | Emergency (ER) | payer BC, MEDICAID ==
[2018-01-13 20:57] VITALS: BP 129/64
--- OUTSIDE RECORDS SUMMARY | 2018-01-13 21:06 | XMS REPORT ---
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 Methanphetamines - Urine Benzodiazepines QN [place] - Urine Oxycodone QL + Urine Drug Screen Inhouse 10/07/2016 Ua Cocaine - Ua Opiates - Ua Amphetamines - Urine Methanphetamines - Urine Benzodiazepines QN [place] - Urine Oxycodone QL + Urine Drug Screen Inhouse 09/09/2016 Ua Cocaine - Ua Opiates + Ua Amphetamines - Urine Methanphetamines - Urine Benzodiazepines QN [place] - Urine Oxycodone QL + Laboratory test finding 09/09/2016 Culture Genital & SEE RESULT BELOW 67 Sensitivity Urine Drug Screen 08/03/2016 Ua Cocaine _ Inhouse Ua Opiates + Ua Amphetamines _ Urine Methanphetamines _ Urine Benzodiazepines QN [place] _ Urine Oxycodone QL + Laboratory test finding 07/29/2016 Culture Throat Rapid Screen positive Urine Drug Screen Inhouse 07/13/2016 Ua Cocaine + Ua Opiates + Ua Amphetamines - Urine Methanphetamines - Urine Benzodiazepines QN [place] - Urine Oxycodone QL + Ua Inhouse 06/17/2016 Ua Glucose - 68 Ua Bilirubin - 68 Ua Ketones - 68 Ua Specific [place] 1.030 68 Ua Blood 3+ 68 Ua PH 5.0 68 Ua Protein - 68 Ua Urobilinogen - 68 Ua Nitrite - 68 Ua Leukocytes - 68 CBC Auto Diff 04/19/2016 White Blood Count [...] Red Blood Cells % 0 Laboratory test 04/19/2016 Gardnerella/Yeast: Vaginal SEE RESULT BELOW 69 finding Dna Laboratory test 04/19/2016 Trichomonas Vaginalis Rna Negative Negative 70 finding Comp Metabolic 04/19/2016 Sodium 134 mmol/L 133-145 Panel Potassium 3.5 mmol/L 3.5-5.0 Chloride 105 mmol/L [...] Egfr Non- 99.5 >60 Egfr 128.0 >60 71 Urinalysis Profile 04/19/2016 Urine Color Alexsandra Urine Appearance Cloudy Urine Specific [place] 1.030 1.010-1.030 Urine pH 5.0 5-9 Urine Urobilinogen Negative Negative Urine Ketones Trace Negative Urine Protein Negative Negative Urine Leukocytes Trace Negative Urine Blood 1+ Negative Urine Nitrite Negative Negative Urine Bilirubin Negative Negative Urine Glucose Negative Negative Urine White Blood Cell Trace(0-5/hpf) Absent Urine Red Blood Cell 2+(6-10/hpf) Absent Urine Bacteria Absent Absent Urine Squamous Epithelial Cell Present Absent GC/Chlamydia Amplified Rna 04/19/2016 Chlamydia trachomatis Rna Negative Negative Neisseria gonorrhoeae (GC) Rna Negative Negative Laboratory test finding 04/19/2016 HCG < 0.60 mIU/mL 72 Urine Culture And Sensitivities SEE RESULT BELOW 73 Laboratory test 03/12/2016 Rapid Strep Negative Negative 74 finding Molecular Laboratory test 12/23/2015 Culture Genital & SEE RESULT BELOW 75 finding Sensitivity Laboratory test 12/23/2015 Cytology SEE RESULT BELOW 76 finding GC/Chlamydia 12/23/2015 Chlamydia trachomatis Negative Negative Amplified Rna Rna Neisseria gonorrhoeae (GC) Rna Negative Negative Laboratory test finding 12/23/2015 Human Papilloma Virus Negative Negative 77 Rna CBC Auto Diff 10/20/2015 White Blood [...] finding 10/20/2015 Lactic Acid 0.6 mmol/L 0.5-2.0 78 1 [id number] 2 SEE RESULT BELOW Name: STEPHANIE PRICE : [address]: Viktor Delgado MD Acct: [id number] Unit: [id number] AGE: 27 Location: [facility] Re12/23/17 SEX: F Status: DEP ER SPEC: [id number] KIKI: 12/23/[address]: Viktor Delgado MD REQ: [id number] RECD: 12/23/17 STATUS: WALTER LEDEZMA DR: Cindy ARAUZ _ SOURCE: URINE SPDESC: ORDERED: Urine Culture COMMENTS: [id number] Procedure Result Reported Site Urine Culture Final 12/25/17- 09 ML Organism 1 ESCHERICHIA COLI [place] Count >100,000 (Many) CFU/ML 1. ESCHERICHIA COLI M.I.C. RX --------- ------ Ampicillin 8 S Cefazolin <=4 S Cefepime <=1 S Ceftriaxone <=1 S Ciprofloxacin <=0.25 S Gentamicin <=1 S Levofloxacin <=0.12 S Meropenem <=0.25 S Nitrofurantoin <=16 S Tetracycline 4 S Pipercillin/Tazobactam <=4 S Trimethoprim/Sulfamethoxazole <=20 S Amoxicillin/Clavulanic Acid <=2 S Aztreonam <=1 S Contact the Microbiology Department for any additional antibiotic reporting. * ML - Main Lab . END OF REPORT DEPARTMENT OF PATHOLOGY, [address] [place] [address] Kevin Rebolledo M.D. Director [facility] # [id number] Digital Community Manager: [id number] 4 Because ethnic data is not always [...] 5 Kidney failure <15 (or dialysis) 5 <5.0 Negative 5.0 - 25.0 Indeterminate (Repeat testing recommended after 72 hours) >25.0 Positive Perimenopausal women can display HCG levels of up to 20 mIU/mL 6 Please note: The following may produce a false positive D Dimer test: - Rheumatoid factor greater than 60 IU/ml - Plasma hemoglobin greater than 0.05 gm/dl - Bilirubin greater than 50 mg/dl - Lipids greater than 1000 mg/dl - FDP greater than 20 ug/ml 7 No interferon-gamma response to M. tuberculosis antigens was detected. Infection with M. tuberculosis is unlikely. A single negative result does not exclude infection with M. tuberculosis. In patients at high risk for M.tuberculosis infection, a second test should be considered in accordance with the 2017 ATS/IDSA/CDC Clinical Practice Guidelines for Diagnosis of Tuberculosis in Adults and Children [Honorio LUKE et. al. Clin. Infect. Dis. 2017;64(2):111-115]. 8 Test Performed by: [facility] [address] [place] [address] 9 SEE RESULT BELOW Name: STEPHANIE PRICE : [address]: Dimitry Ruiz MD Acct: [id number] Unit: [id number] AGE: 27 Location: ED Re09/18/17 SEX: F Status: DEP ER SPEC: [id number] KIKI: 09/18/[address]: Jenn WALLS REQ: [id number] RECD: 09/18/17 STATUS: WALTER LEDEZMA DR: Cindy Ruiz MD _ SOURCE: URINE SPDESC: ORDERED: Urine Culture Procedure Result Reported Site Urine Culture Final 09/19/17- 0734 ML No Growth (<1,000 CFU/mL) * ML - Main Lab . END OF REPORT DEPARTMENT OF PATHOLOGY, [address] [place] [address] Kevin Rebolledo M.D. Director [facility] # [id number] 10 Because ethnic data is not always readily [...] 15-29 5 Kidney failure <15 (or dialysis) 11 Acute inflammation: >10.00 12 Would you like to order Trichomonas Vaginalis RNA testing? Y 13 SEE RESULT BELOW Name: STEPHANIE PRICE : [address]: Dimitry Ruiz MD Acct: [id number] Unit: [id number] AGE: 27 Location: ED Re09/18/17 SEX: F Status: DEP ER SPEC: [id number] KIKI: 09/18/[address]: Jenn WALLS REQ: [id number] RECD: 09/18/17 STATUS: COMP DARIEN DR: Cindy Lee RPA-C Dimitry Ruiz MD _ SOURCE: VAGINAL SPDESC: ORDERED: Billy,Yeast DNA, Trich DNA COMMENTS: Would you like to order Trichomonas Vaginalis RNA testing? Y QUERIES: Would you like to order Trichomonas Vaginalis testing? Y Procedure Result Reported Site Gardnerella/Yeast: Vaginal DNA Final 09/18/17- 1421 ML Organism 1 Negative Gardnerella Organism 2 POSITIVE JIHAN The presence of G. vaginalis, although suggestive, [...] a test for therapeutic success or failure. Trichomonas: Vaginal DNA Probe Final 09/19/17- 0855 ML Organism 1 Negative Trichomonas CONTINUED ON NEXT PAGE DEPARTMENT OF PATHOLOGY, [address] [place] [address] Kevin Rebolledo M.D. Director [facility] # [id number] Patient: STEPHANIE PRICE [id number] (Continued) Specimen: [id number] Collected: 09/18/17 Received: 09/18/17 (Continued) Procedure Result Reported Site Trichomonas: Vaginal DNA Probe Final (continued) 09/19/17- 854 The presence or absence of T. vaginalis cannot be used as a test for therapeutic success or failure. * ML - Main Lab . END OF REPORT DEPARTMENT OF PATHOLOGY, [address] [place] [address] Kevin Rebolledo M.D. Director [facility] # [id number] 14 Result in log IU/mL is 2.79. ADDITIONAL INFORMATION The quantification range of this assay is 15 to 100,000,000 IU/mL (1.18 log to 8.00 log IU/mL). Testing was performed using the pawel HCV test ([employer] with the pawel [employer] System. Test Performed by: [facility] [address] [place] [address] 15 SEE RESULT BELOW Name: DEESTEPHANIE : [address]: Jose Hale MD Acct: [id number] Unit: [id number] AGE: 27 Location: ED Re08/13/17 SEX: F Status: DEP ER SPEC: [id number] KIKI: 08/13/[address]: Calvin Hale MD REQ: [id number] RECD: 08/13/17 STATUS: WALTER LEDEZMA DR: Cindy Lee RPATerranceC _ SOURCE: VAGINAL SPDESC: ORDERED: Billy,Yeast DNA QUERIES: Would you like to order Trichomonas Vaginalis RNA testing? Y Procedure Result Reported Site Gardnerella/Yeast: Vaginal DNA Final 08/15/17- 1326 ML Organism 1 POSITIVE GARDNERELLA Organism 2 [...] therapeutic success or failure. * ML - Main Lab . END OF REPORT DEPARTMENT OF PATHOLOGY, [address] [place] [address] Kevin Rebolledo M.D. Director [facility] # [id number] 16 GC/Chlamydia Source?: Endocervical Trichomonas Source: Endocervical 17 <5.0 Negative 5.0 - 25.0 Indeterminate (Repeat testing recommended after 72 hours) >25.0 Positive Perimenopausal women can display HCG levels of up to 20 mIU/mL 18 Verbal to FINN MANSFIELD by [id number] at 0837 on 08/16/17. Results read back accurately. Submitted to [facility] via [employer] system by [id number] at 1411 on 08/16/17. 19 Verbal to FINN MANSFIELD by [id number] at 0837 on 08/16/17. Results read back accurately. Submitted to [facility] via [employer] system by [id number] at 1411 on 08/16/17. 20 High reactive sample are considered positive for Hepatitis C 21 Presumptive Positive Presumptive positive results are unconfirmed. 22 Presumptive Positive Presumptive positive results are unconfirmed. 23 Presumptive Positive Presumptive positive results are unconfirmed. 24 The urine specimen was tested at the listed cutoffs: Drug class test level (ng/mL) Amphetamines 500 Barbiturates 200 Benzodiazepine metabolites 200 Cocaine metabolites 150 Cannabinoids 50 Opiates 300 Pcp 25 Specimen was received without chain of custody. Results should be used for medical purposes only. 25 Because ethnic data is not always readily [...] 15-29 5 Kidney failure <15 (or dialysis) 26 SEE RESULT BELOW Name: STEPHANIE PRICE : [address]: William Barker MD Acct: [id number] Unit: [id number] AGE: 27 Location: [facility] Re06/21/17 SEX: F Status: DEP REF SPEC: [id number] KIKI: 06/21/17-[address] [facility] [address]: William Barker MD REQ: [id number] RECD: 06/21/17160 STATUS: WALTER LEDEZMA DR: Cindy Lee RPA-C _ SOURCE: GAS ANTRUM SPDESC: ORDERED: Clotest Procedure Result Reported Site Clotest Final 06/22/17839 ML Clotest Negative * ML - Main Lab . END OF REPORT DEPARTMENT OF PATHOLOGY, [address] [place] [address] Kevin Rebolledo M.D. Director [place] # [id number] 28 SEE RESULT BELOW Name: STEPHANIE PRICE : [address]: William Barker MD Acct: [id number] Unit: [id number] AGE: 27 Location: [facility] Re06/21/17 SEX: F Status: DEP REF SPEC: [id number] KIKI: 06/21/17-[address] [facility] [address]: William Barker MD REQ: [id number] RECD: 06/21/177979 STATUS: DESHAUN LEDEZMA DR: Cindy [facility] _ ORDERED: LEVEL 4 COMMENTS: [id number] FINAL DIAGNOSIS Duodenum, biopsy: -- Benign small intestinal mucosa with no significant pathologic abnormalities. -- No evidence of villous blunting or increased intraepithelial lymphocytes. CLINICAL HISTORY No history given POST-OPERATIVE DIAGNOSIS Esophagus ? Grade B erosive esophagitis; stomach ? normal, biopsied; duodenum ? normal, biopsied. Conclusions/Plan: Proton pump inhibitor 40 mg GROSS DESCRIPTION The specimen is received in formalin labeled, Duodenum Biopsy, and consists of a 0.3 x 0.3 x 0.2 cm mendes-pink irregular soft tissue fragment which is submitted entirely in one cassette. Signed (signature on file) Maria Isabel Siegel MD 11/02 1147 END OF REPORT DEPARTMENT OF PATHOLOGY, [address] [place] [address] Kevin Rebolledo M.D. Director [facility] # [id number] 29 SEE RESULT BELOW Name: STEPHANIE PRICE : [address]: Cindy ARAUZ Acct: [id number] Unit: [id number] AGE: 27 Location: [facility] Re05/26/17 SEX: F Status: REG REF SPEC: [id number] KIKI: 05/26/17-[address]: Cindy ARAUZ REQ: [id number] RECD: 05/26/17 STATUS: COMP _ SOURCE: VAGINAL SPDESC: ORDERED: Genital Culture COMMENTS: [id number] Procedure Result Reported Site Genital Culture Final 05/28/17- 1135 ML Organism 1 YEAST Quantity 1+ Organism 2 BILLY VAGINALIS-PRESUMPTIVE Quantity 2+ Organism 3 NORMAL SALVADOR Quantity 3+ Routine genital cultures do not include selective agar for Neisseria gonorrhoeae. Molecular testing offers better test sensitivity and therefore is the preferred test methodology for identifying this organism. * ML - MAIN LAB ([facility]) . END OF REPORT * ML=Testing performed at Main Lab DEPARTMENT OF PATHOLOGY, [address] [place] [address] Kevin Rebolledo M.D. Director [facility] # [id number] 30 Presumptive Positive Presumptive positive results are unconfirmed. 31 Presumptive Positive Presumptive positive results are unconfirmed. 32 The urine specimen was tested at the listed cutoffs: Drug class test level (ng/mL) Amphetamines 500 Barbiturates 200 Benzodiazepine metabolites 200 Cocaine metabolites 150 Cannabinoids 50 Opiates 300 Pcp 25 Specimen was received without chain of custody. Results should be used for medical purposes only. 33 SEE RESULT BELOW Name: STEPHANIE PRICE : [address]: Naman Mo MD Acct: [id number] Unit: [id number] AGE: 27 Location: ED Re05/25/17 SEX: F Status: DEP ER SPEC: [id number] KIKI: 05/25/[address]: Naman Mo MD REQ: [id number] RECD: 05/25/17 STATUS: WALTER LEDEZMA DR: Cindy BROOKSC _ SOURCE: URINE SPDESC: ORDERED: Urine Culture Procedure Result Reported Site Urine Culture Final 05/27/17- 09 ML No growth of clinically significant organisms * ML - MAIN LAB ([facility]) . END OF REPORT * ML=Testing performed at Main Lab DEPARTMENT OF PATHOLOGY, [address] [place] [address] Kevin Rebolledo M.D. Director [facility] # [id number] 34 Because ethnic data is not always readily [...] 15-29 5 Kidney failure <15 (or dialysis) 35 High reactive sample are considered positive for Hepatitis C 36 SEE RESULT BELOW Name: STEPHANIE PRICE : [address]: Garry Batista MD Acct: [id number] Unit: [id number] AGE: 27 Location: ED Re05/11/17 SEX: F Status: DEP ER SPEC: [id number] KIKI: 05/11/[address]: Garry Batista MD REQ: [id number] RECD: 05/11/17 STATUS: WALTER LEDEZMA DR: [facility] Cindy ARAUZ _ SOURCE: URINE SPDESC: ORDERED: Urine Culture Procedure Result Reported Site Urine Culture Final 05/12/17- 1652 ML No Growth (<1,000 CFU/mL) * ML - MAIN LAB ([facility]) . END OF REPORT * ML=Testing performed at Main Lab DEPARTMENT OF PATHOLOGY, [address] [place] [address] Kevin Rebolledo M.D. Director [facility] # [id number] 37 Because ethnic data is not always [...] 5 Kidney failure <15 (or dialysis) 38 Acute inflammation: >10.00 39 <5.0 Negative 5.0 - 25.0 Indeterminate (Repeat testing recommended after 72 hours) >25.0 Positive Perimenopausal women can display HCG levels of up to 20 mIU/mL 40 SEE RESULT BELOW Name: STEPHANIE PRICE : [address]: Garry Batista MD Acct: [id number] Unit: [id number] AGE: 27 Location: ED Re05/11/17 SEX: F Status: DEP ER SPEC: [id number] KIKI: 05/11/17 DR: Garry Batista MD REQ: [id number] RECD: 05/11/17 STATUS: WALTER LEDEZMA DR: [facility] Cindy Lee [facility] _ SOURCE: BLOOD,VENO SPDESC: ORDERED: Blood Cult Procedure Result Reported Site Aerobic Culture Bottle Final 05/16/17- 2129 ML No Growth Day 5 Anaerobic Culture Bottle Final 05/16/17- 2129 ML No Growth Day 5 * ML - [facility] LAB ([facility]) . END OF REPORT * ML=Testing performed at Main Lab DEPARTMENT OF PATHOLOGY, [address] [place] [address] Kevin Rebolledo M.D. Director [facility] # [id number] 41 Digital Community Manager: [id number] Digital Community Manager: [id number] 43 It is recognized that currently available assays [...] 95% confidence interval of 99.78 to 99.96%. 44 Result in log IU/mL is 5.56. ADDITIONAL INFORMATION The quantification range of this assay is 15 to 100,000,000 IU/mL (1.18 log to 8.00 log IU/mL). Testing was performed using the pawel HCV test ([employer] with the pawel 6800 System. Test Performed by: [facility] - [address] [address] 45 ADDITIONAL INFORMATION This test was performed using the [employer] RealTime HCV Genotype II assay ([employer] [place], [place]). Test Performed by: [address] [address] 46 Because ethnic data is not always readily [...] 15-29 5 Kidney failure <15 (or dialysis) 47 High reactive sample are considered positive for Hepatitis C 48 Therapeutic target for the treatment of diabetes mellitus patients is <7% HBA1C, and in selective patients <6.0%. Please refer to [place] [employer] diabetic care guidelines for further information. 49 Because ethnic data is not always readily [...] 15-29 5 Kidney failure <15 (or dialysis) 50 Normal Range 180 to 914 Indeterminate Range 145 to 180 Deficient Range <145 51 REFERENCE VALUE <1.0 (Negative) 52 REFERENCE VALUE <1.0 (Negative) Test Performed by: [address] [address] 53 REFERENCE VALUE <=1.0 (Negative) 54 REFERENCE VALUE <20.0 (Negative) 55 Tests for antibodies to dsDNA and KEYLA antigens are not performed automatically unless the JACQUIE result is > or= 3.0 U. Studies performed at [facility] indicate that positive JACQUIE results <3.0 U are rarely accompanied by positive second order tests. Test Performed by: [facility] [place] [address] [place] [address] 56 Serologic response to B. burgdorferi infection is not detected, but cannot rule out early infection during which low or undetectable antibody levels to B. burgdorferi may be present. If clinically indicated, a new serum specimen should be submitted in 7-14 days. Test Performed by: [facility] [address] [place] [address] 57 Because ethnic data is not always readily [...] 15-29 5 Kidney failure <15 (or dialysis) 58 Therapeutic concentration: <50 ug/mL Toxic concentration: >120 ug/mL 59 Presumptive Positive Presumptive positive results are unconfirmed. 60 Presumptive Positive Presumptive positive results are unconfirmed. 61 The urine specimen was tested at the listed cutoffs: Drug class test level (ng/mL) Amphetamines 500 Barbiturates 200 Benzodiazepine metabolites 200 Cocaine metabolites 150 Cannabinoids 50 Opiates 300 Pcp 25 Specimen was received without chain of custody. Results should be used for medical purposes only. 62 SEE RESULT BELOW Name: STEPHANIE PRICE : [address]: Jeremy Ruvalcaba MD Acct: [id number] Unit: [id number] AGE: 26 Location: ED Re01/11/17 SEX: F Status: REG ER SPEC: [id number] KIKI: 01/11/[address] [facility] [address]: Tee Vela MD REQ: [id number] RECD: 01/11/17 STATUS: WALTER LEDEZMA DR: Cindy ARAUZ _ SOURCE: URINE SPDESC: ORDERED: Urine Culture Procedure Result Reported Site Urine Culture Final 01/13/17- 912 ML Mixed salvador; possible contamination. Suggest resubmission. * ML - MAIN LAB ([facility]) . END OF REPORT * ML=Testing performed at Main Lab DEPARTMENT OF PATHOLOGY, [address] [place] [address] Kevin Rebolledo M.D. Director [facility] # [id number] 63 Presumptive Positive Presumptive positive results are unconfirmed. 64 The urine specimen was tested at the listed cutoffs: Drug class test level (ng/mL) Amphetamines 500 Barbiturates 200 Benzodiazepine metabolites 200 Cocaine metabolites 150 Cannabinoids 50 Opiates 300 Pcp 25 Specimen was received without chain of custody. Results should be used for medical purposes only. 65 Because ethnic data is not always readily [...] 15-29 5 Kidney failure <15 (or dialysis) 66 Therapeutic concentration: <50 ug/mL Toxic concentration: >120 ug/mL 67 SEE RESULT BELOW Name: STEPHANIE PRICE : [address]: Cindy ARAUZ Acct: [id number] Unit: [id number] AGE: 26 Location: [facility] Re09/09/16 SEX: F Status: REG REF SPEC: [id number] KIKI: 09/09/16-[address] [facility] [address]: Cindy ARAUZ REQ: [id number] RECD: 09/10/16134 STATUS: COMP _ SOURCE: VAGINAL SPDESC: ORDERED: Genital Culture COMMENTS: [id number] Procedure Result Reported Site Genital Culture Final 09/12/16- 1157 ML Organism 1 YEAST Quantity 1+ Organism 2 NORMAL SALVADOR Quantity 3+ * ML - MAIN LAB ([facility]) . END OF REPORT * ML=Testing performed at Main Lab DEPARTMENT OF PATHOLOGY, [address] [place] [address] Kevin Rebolledo M.D. Director [facility] # [id number] 68 void, hazy, dark yellow 69 SEE RESULT BELOW Name: STEPHANIE PRICE : [address]: German Hernandez MD Acct: [id number] Unit: [id number] AGE: 26 Location: ED Re04/19/16 SEX: F Status: DEP ER SPEC: [id number] KIKI: 04/19/16-[address] [facility] [address]: German Hernandez MD REQ: [id number] RECD: 04/19/16 STATUS: COMP [facility] DR: Drew Goncalves MD _ SOURCE: VAGINAL [...] therapeutic success or failure. * ML - [facility] LAB ([facility]) . END OF REPORT * ML=Testing performed at Main Lab DEPARTMENT OF PATHOLOGY, [address] [place] [address] Kevin Rebolledo M.D. Director [facility] # [id number] 70 GC/Chlamydia Source?: Endocervical Trichomonas Source: Endocervical 71 Because ethnic data is not always readily [...] 15-29 5 Kidney failure <15 (or dialysis) 72 <5.0 Negative 5.0 - 25.0 Indeterminate (Repeat testing recommended after 72 hours) >25.0 Positive Perimenopausal women can display HCG levels of up to 20 mIU/mL 73 SEE RESULT BELOW Name: STEPHANIE PRICE : [address]: German Hernandez MD Acct: [id number] Unit: [id number] AGE: 26 Location: ED Re04/19/16 SEX: F Status: DEP ER SPEC: [id number] KIKI: 04/19/16-[address] [facility] [address]: German Hernandez MD REQ: [id number] RECD: 04/19/16 STATUS: WALTER LEDEZMA DR: Drew Goncalves MD _ SOURCE: URINE SPDESC: ORDERED: Urine Culture Procedure Result Reported Site Urine Culture Final 04/20/16- 1616 ML No Growth (<1,000 CFU/mL) * ML - MAIN LAB ([facility]) . END OF REPORT * ML=Testing performed at Main Lab DEPARTMENT OF PATHOLOGY, [address] [place] [address] Kevin Rebolledo M.D. Director [facility] # [id number] 74 Digital Community Manager: [id number] HERNANDEZ 75 SEE RESULT BELOW Name: STEPHANIE PRICE : [address]: Jeremy Godyo MD Acct: [id number] Unit: [id number] AGE: 25 Location: [facility] Re12/23/15 SEX: F Status: REG REF SPEC: [id number] KIKI: 12/23/15-[address]: Jeremy Godoy MD REQ: [id number] RECD: 12/24/15140 STATUS: COMP _ SOURCE: VAGINAL SPDESC: ORDERED: Genital Culture COMMENTS: [id number] Procedure Result Reported Site Genital Culture Final 12/26/15- 1450 ML Organism 1 BILLY VAGINALIS - PRESUMPTIVE Quantity 3+ Organism 2 YEAST Quantity 2+ Organism 3 NORMAL SALVADOR Quantity 1+ * ML - MA[facility] LAB ([facility]) . END OF REPORT * ML=Testing performed at Main Lab DEPARTMENT OF PATHOLOGY, [address] [place] [address] Kevin Rebolledo M.D. Director CLIA # [id number] 76 SEE RESULT BELOW Name: STEPHANIE PRICE : [address]: Jeremy Godoy MD Acct: [id number] Unit: [id number] AGE: 25 Location: [facility] Re12/23/15 SEX: F Status: REG REF SPEC: [id number] KIKI: 12/23/[address]: Jeremy Godoy MD REQ: [id number] RECD: 12/24/158770 STATUS: SOUT _ ORDERED: IMAGE ANALYSIS, HPV/Thin Prep COMMENTS: [id number] FINAL DIAGNOSIS Negative for Intraepithelial lesion or [...] Signed (signature on file) SUNSHINE Joyner(ASCP) 12/24 1611 This Pap test was evaluated with the assistance of the [employer]fonPrep Test Imaging System. Due to cytologic findings at the mash tub cooker microscope, comprehensive manual rescreening by a Diamond Grader may be required. The Pap Smear is [...] performed at [facility] OF [facility]OLOGY, [address] [place] [address] Kevin Rebolledo M.D. Director [facility] # [id number] The high-risk HPV types detected by the assay include: 16, 18, 31, 33, 35, 39, 45, 51, 52, 56, 58, 59, 66, and 68. 78 [facility] Severe Sepsis and Septic Shock Management Bundle Measure requires all lactic acids initially measuring >2.0 mmol/L be repeated. Procedures Date CPT Code Description Status 07/31/2016 34050 SC/Im Injections Completed 12/23/2015 03617 Anoscopy Diagnostic Completed Encounters Type Date Location Provider CPT E/M Dx Office Visit 09/22/2017 2:35p [place] [address] F41.9 B18.2 F11.10 F31.9 Z11.1 Office Visit 08/25/2017 3:55p [place] [address] Z71.51 F11.10 F19.10 B18.2 N20.0 Office Visit 06/23/2017 11:45a [place] [address] K20.8 F41.9 N20.0 M54.5 B18.2 F11.21 N83.202 Office Visit 05/26/2017 1:55p [place] [address] N76.0 N83.202 F41.9 R10.84 F11.21 N20.0 M54.5 Office Visit 05/17/2017 4:30p [place] [address] M54.5 F41.9 B18.2 F11.21 R10.84 F17.210 N83.202 N20.0 K59.00 Office Visit 05/04/2017 11:20a [place] [address] B18.2 F11.21 R19.7 R10.84 F17.210 J06.9 J03.90 Office Visit 04/07/2017 1:55p [place] [address] B18.2 F11.21 R10.84 G43.009 M54.9 Office Visit 03/15/2017 3:50p [place] [address] F25.0 F11.21 R10.84 G43.009 F17.210 Z23 Office Visit 03/02/2017 11:40a [place] [address] F11.20 F31.9 K21.9 M54.13 R10.84 F17.210 Office Visit 01/15/2017 9:15a [place] [address] F11.20 F31.9 R10.84 N91.2 Office Visit 12/29/2016 8:40a [place] [address] R10.84 F11.20 G43.009 M54.9 R31.9 F31.9 Office Visit 12/07/2016 10:05a [place] [address] R10.84 F11.20 G43.009 F31.9 M54.9 Office Visit 11/02/2016 4:10p [place] [address] R10.84 R19.7 F11.20 G43.009 N92.6 R10.30 F31.9 Office Visit 10/20/2016 2:40p [place] [address] A60.04 R10.84 M54.9 F11.20 G43.009 Office Visit 10/07/2016 2:35p [place] [address] R10.84 B00.9 F11.20 Office Visit 09/09/2016 2:35p [place] [address] R10.84 F11.20 F17.210 N76.0 Z11.3 N91.2 G43.009 R19.7 Office Visit 08/17/2016 2:30p [place] [address] R10.84 R19.7 F11.20 K08.89 Office Visit 08/03/2016 4:50p [place] [address] F11.20 R10.84 F31.9 R19.7 J02.0 Office Visit 07/31/2016 10:00a Main Office Jeremy Godoy M.D. 52340 J02.0 Office Visit 07/29/2016 11:25a [place] [address] R10.84 F11.20 F31.9 R31.9 F17.210 G25.81 J02.0 Office Visit 07/13/2016 9:45a [place] [address] R10.84 F11.20 R31.21 F31.9 F17.210 Office Visit 06/24/2016 2:35p [place] [address] R10.84 F11.20 R31.9 F31.9 Office Visit 06/17/2016 4:15p [place] [address] R10.84 R19.5 F11.20 F31.9 R31.9 Z79.899 Office Visit 12/23/2015 2:00p Main Office Jeremy Godoy M.D. 95689 Z71.89 R10.84 R19.5 Z80.49 Plan of Care 09/22/2017 - Cindy Lee, PAF41.9 Anxiety disorder, unspecifiedComments:Pt to f/u with mental health fidencio.B18.2 Chronic viral hepatitis CComments:Pt was seeing GI (Dr. Barker) for Hep C. Viral load has been decreasing, seems she may be clearing it on her own. Will recheck in few months. Pt will schedule f/u w GI.F11.10 Opioid abuse, uncomplicatedComments:Discussed addiction and treatment. Pt unfortunately does not want to go back to inpatient rehab. Sheprefers to try to "do it on my own" but agrees to discuss it with her counselor at her next appt there.F31.9 Bipolar disorder, unspecifiedNew Medication:Buspirone HCL 10 mgComments:Being managed by mental health.Z11.1 Encounter for screening for respiratory tuberculosisComments:Quantiferon gold drawn today for TB screening (for potential employment).
--- OUTSIDE RECORDS SUMMARY | 2018-01-13 21:07 | XMS REPORT ---
:1990 External Reference #:[id number] Author Organization [facility] Address [address] [place] [address] Phone [phone] Care Team Providers Name Role Phone HCP given Primary Care Physician Unavailable Payers Type Date Identification Numbers Payment Provider Subscriber Commercial Policy Number: [id number] [place] Anitra Price Ind/Ppo/Hmo/Pos PayID: [id number] [facility] [address] [place] [address] [facility] Policy Number: [id number] Medicaid Stephanie Price PayID: [id number] [address] [place] [address] Problems Date Description Provider Status Onset: 06/17/2016 [...] In heroin, The Past cocaine--inpatient rehab at [facility] 01/2017, relapse 06/2017 Smoking Light tobacco [...] Patient is currently sexually active Age 1st [place] 16 Years Old STD's No STD History [...] tab by Sacha, Elizabeth s mouth 2x/day Madga Russell Meloxicam 03/02/ Active Tablets 15mg 30tabs [...] by F31.9 Rosa, 11/02/2016 mouth at [place], [place] night for anxiety F11.20 Hydroxyzine 08/03/2016 - [...] 09/08/2016 12HR g twice daily MD William Acetaminophen 07/08/2016 - Hx Tablets 300-30 1 [...] 5-325m 30tabs take 1 tablet up R10.84 [facility], taminophen 08/03/2016 g to 2 times a day [place], as needed for [place] pain Suboxone 05/20/2016 - Hx Film 8-2mg 1 by mouth every Unknown 06/23/2016 morning; suboxone prescriber# [id number] Clonidine HCL 05/20/2016 - Hx Tablets ER 0.1mg 30tabs 1 tab by mouth at [facility], ER 08/03/2016 12HR bedtime KAVITA White Diflucan 12/30/2015 - Hx Tablets 150mg 1tabs 1 tab by mouth [facility], 06/16/2016 once KAVITA White Metrogel-Vagi 12/30/2015 - Hx Gel 0.75% 70gm 1 applicatorful [facility], nal 06/16/[address] vagina [place], every night at [place] bedtime x5 days No Active 12/23/2015 - Hx Unknown Medications 12/30/2015 Diphenoxylate - Hx Tablets 2.5-0. take 2 tablets by R19.7 Unknown -Atropine 03/14/2017 025mg mouth 4 times per day as needed for diarrhea Baclofen - Hx Tablets 10mg take 1 tablet by Unknown 05/17/2017 mouth three times a day Nystatin - Hx Suspension [id number] take 4 Unknown 05/25/2017 Unit/M milliliters by L mouth four times a day as directed Medications Administered in Office Medication Date Status Form Strength Qnty SIG Indications Ordering Provider SC/Im Administered Injection Jeremy Godoy M.D. Immunizations CPT Code Status Date Vaccine Lot # [id number] Given 08/13/2017 Adacel or Boostrix, TDaP 53050 Given 03/15/2017 Adacel or Boostrix, TDaP [id number] 14858 Given 05/29/2010 Flu, Split Virus 3Yrs 51113 Given 08/09/2008 Gardasil HPV vaccine 25821 Given 03/22/2008 Varicella (Chicken Pox) Immunization 68185 Given 03/22/2008 Flu, Split Virus 3Yrs 98392 Given 03/22/2008 Gardasil HPV vaccine 12445 Given 07/12/2005 Menactra Menningitis Vaccine 27219 Given 07/12/2005 Adacel or Boostrix, TDaP 92582 Given 10/24/1996 Oral Poliovirus Immunization 00104 Given 10/24/1996 MMR Virus Immunization 89730 Given 10/24/1996 Dtap Immunization (Tripedia) (Infanrix) 19860 Given 10/21/1993 Hep B Immunization, Ped/Adolescent To 11 Yrs 10638 Given 05/27/1993 Hep B Immunization, Ped/Adolescent To 11 Yrs 29423 Given 04/29/1993 Hep B Immunization, Ped/Adolescent To 11 Yrs 72020 Given 04/29/1993 DTP-Hib (Tetramune) 04897 Given 04/29/1993 Oral Poliovirus Immunization 86139 Given 04/29/1993 MMR Virus Immunization 07362 Given 1992 DTP Immunization 97982 Given 1992 3 dose Hib (PRP-Omp) 33994 Given 1992 Oral Poliovirus Immunization 15077 Given 1992 DTP Immunization 12923 Given 1992 3 dose Hib (PRP-Omp) 61788 Given 1992 Oral Poliovirus Immunization 44298 Given 1992 DTP Immunization 62490 Given 1992 3 dose Hib (PRP-Omp) Vital [...] Poc Ketone, Urine Negative Negative Poc Specific Rockwood, Urine 1.020 1.010-1.030 Poc Blood, Urine 2+ [...] Color Yellow Urine Appearance Cloudy Urine Specific Rockwood 1.020 1.010-1.030 Urine pH 6.0 5-9 Urine [...] Color Yellow Urine Appearance Clear Urine Specific Rockwood 1.013 1.010-1.030 Urine pH 6.0 5-9 Urine [...] Color Yellow Urine Appearance Clear Urine Specific Rockwood 1.020 1.010-1.030 Urine pH 6.0 5-9 Urine [...] Color Yellow Urine Appearance Cloudy Urine Specific Rockwood 1.010 1.010-1.030 Urine pH 7.0 5-9 Urine [...] test finding 04/08/2017 Hepatitis C Rna Quant 397163 IU/mL Undetected 44 Hepatitis C Genotype 1a [...] Color Alexsandra Urine Appearance Cloudy Urine Specific Rockwood 1.026 1.010-1.030 Urine pH 7.0 5-9 Urine [...] Color Colorless Urine Appearance Clear Urine Specific Rockwood 1.002 Low 1.010-1.030 Urine pH 6.0 5-9 [...] - Urine Methanphetamines - Urine Benzodiazepines QN Argyle - Urine Oxycodone QL + Urine Drug Screen Inhouse 10/07/2016 Ua Cocaine - Ua Opiates - Ua Amphetamines - Urine Methanphetamines - Urine Benzodiazepines QN Argyle - Urine Oxycodone QL + Urine Drug Screen Inhouse 09/09/2016 Ua Cocaine - Ua Opiates + Ua Amphetamines - Urine Methanphetamines - Urine Benzodiazepines QN Argyle - Urine Oxycodone QL + Laboratory test finding 09/09/2016 Culture Genital & SEE RESULT BELOW 67 Sensitivity Urine Drug Screen 08/03/2016 Ua Cocaine _ Inhouse Ua Opiates + Ua Amphetamines _ Urine Methanphetamines _ Urine Benzodiazepines QN Argyle _ Urine Oxycodone QL + Laboratory test finding 07/29/2016 Culture Throat Rapid Screen positive Urine Drug Screen Inhouse 07/13/2016 Ua Cocaine + Ua Opiates + Ua Amphetamines - Urine Methanphetamines - Urine Benzodiazepines QN Argyle - Urine Oxycodone QL + Ua Inhouse 06/17/2016 Ua Glucose - 68 Ua Bilirubin - 68 Ua Ketones - 68 Ua Specific Rockwood 1.030 68 Ua Blood 3+ 68 Ua [...] Color Alexsandra Urine Appearance Cloudy Urine Specific Rockwood 1.030 1.010-1.030 Urine pH 5.0 5-9 Urine [...] Lactic Acid 0.6 mmol/L 0.5-2.0 78 1 [id number] 2 SEE RESULT BELOW Name: STEPHANIE PRICE : [address]: Viktor Delgado MD Acct: [id number] Unit: [id number] AGE: 27 Location: [facility] Re12/23/17 SEX: F Status: DEP ER SPEC: [id number] KIKI: 12/23/[address]: Viktor Delgado MD REQ: [id number] RECD: 12/23/17 STATUS: WALTER LEDEZMA DR: Cindy ARAUZ _ SOURCE: URINE SPDESC: ORDERED: Urine Culture COMMENTS: [id number] Procedure Result Reported Site Urine Culture Final 12/25/17- 09 ML Organism 1 ESCHERICHIA COLI Spearfish Count >100,000 (Many) CFU/ML 1. ESCHERICHIA COLI [...] . END OF REPORT DEPARTMENT OF PATHOLOGY, [address] [place] [address] Kevin Rebolledo M.D. Director [facility] # [id number] 3 Civil Project Engineer: [id number] 4 Because ethnic data is not always [...] Infect. Dis. 2017;64(2):111-115]. 8 Test Performed by: [facility] - [facility] [address] [place] [address] 9 SEE RESULT BELOW Name: STEPHANIE PRICE : [address]: Dimitry Ruiz MD Acct: [id number] Unit: [id number] AGE: 27 Location: ED Re09/18/17 SEX: F Status: DEP ER SPEC: [id number] KIKI: 09/18/[address]: Jenn WALLS REQ: [id number] RECD: 09/18/17 STATUS: WALTER LEDEZMA DR: Cindy Ruiz MD _ SOURCE: URINE SPDESC: ORDERED: Urine Culture Procedure Result Reported Site Urine Culture Final 09/19/17- 0734 ML No Growth (<1,000 CFU/mL) * ML - Main Lab . END OF REPORT DEPARTMENT OF PATHOLOGY, [address] [place] [address] Kevin Rebolledo M.D. Director [facility] # [id number] 10 Because ethnic data is not always [...] [address]: Dimitry Ruiz MD Acct: [id number] Unit: [id number] AGE: 27 Location: ED Re09/18/17 SEX: F Status: DEP ER SPEC: [id number] KIKI: 09/18/[address]: Jenn WALLS REQ: [id number] RECD: 09/18/17 STATUS: COMP DARIEN DR: Cindy [...] CONTINUED ON NEXT PAGE DEPARTMENT OF PATHOLOGY, [address] [place] [address] Kevin Rebolledo M.D. Director [facility] # [id number] Patient: STEPHANIE PRICE [id number] (Continued) Specimen: [id number] Collected: 09/18/17 Received: 09/18/17 (Continued) Procedure Result Reported Site Trichomonas: Vaginal DNA Probe Final (continued) 09/19/17- 854 The presence or absence of T. vaginalis cannot be used as a test for therapeutic success or failure. * ML - Main Lab . END OF REPORT DEPARTMENT OF PATHOLOGY, [address] [place] [address] Kevin Rebolledo M.D. Director [facility] # [id number] 14 Result in log IU/mL is 2.79. ADDITIONAL INFORMATION The quantification range of this assay is 15 to 100,000,000 IU/mL (1.18 log to 8.00 log IU/mL). Testing was performed using the pawel HCV test ([employer] with the pawel [employer] System. Test Performed by: [facility] [address] [place] [address] 15 SEE RESULT BELOW Name: DEESTEPHANIE : [address]: Jose Hale MD Acct: [id number] Unit: [id number] AGE: 27 Location: ED Re08/13/17 SEX: F Status: DEP ER SPEC: [id number] KIKI: 08/13/[address]: Calvin Hale MD REQ: [id number] RECD: 08/13/17 STATUS: WALTER LEDEZMA DR: Cindy [...] . END OF REPORT DEPARTMENT OF PATHOLOGY, [address] [place] [address] Kevin Rebolledo M.D. Director [facility] # [id number] 16 GC/Chlamydia Source?: Endocervical Trichomonas Source: Endocervical 17 <5.0 Negative 5.0 - 25.0 Indeterminate (Repeat testing recommended after 72 hours) >25.0 Positive Perimenopausal women can display HCG levels of up to 20 mIU/mL 18 Verbal to FINN MANSFIELD by [id number] at 0837 on 08/16/17. Results read back accurately. Submitted to [facility] via SeatID system by [id number] at 1411 on 08/16/17. 19 Verbal to FINN MANSFIELD by [id number] at 0837 on 08/16/17. Results read back accurately. Submitted to [facility] via ClearleapRS system by [id number] at 1411 on 08/16/17. 20 High reactive [...] [address]: William Barker MD Acct: [id number] Unit: [id number] AGE: 27 Location: [facility] Re06/21/17 SEX: F Status: DEP REF SPEC: [id number] KIKI: 06/21/17-[address] [facility] [address]: William Barker MD REQ: [id number] RECD: 06/21/17160 STATUS: WALTER LEDEZMA DR: Cindy Lee RPA-C _ SOURCE: GAS ANTRUM SPDESC: ORDERED: Clotest Procedure Result Reported Site Clotest Final 06/22/17839 ML Clotest Negative * ML - Main Lab . END OF REPORT DEPARTMENT OF PATHOLOGY, [address] [place] [address] Kevin Rebolledo M.D. Director [place] # [id number] 27 [id number] 28 SEE RESULT BELOW Name: STEPHANIE PRICE : [address]: William Barker MD Acct: [id number] Unit: [id number] AGE: 27 Location: [facility] Re06/21/17 SEX: F Status: DEP REF SPEC: [id number] KIKI: 06/21/17-[address] [facility] [address]: William Barker MD REQ: [id number] RECD: 06/21/178393 STATUS: DESHAUN LEDEZMA DR: [facility] [facility] _ ORDERED: LEVEL 4 COMMENTS: [id number] FINAL DIAGNOSIS Duodenum, biopsy: -- Benign small [...] 1147 END OF REPORT DEPARTMENT OF PATHOLOGY, [address] [place] [address] Kevin Rebolledo M.D. Director [facility] # [id number] 29 SEE RESULT BELOW Name: STEPHANIE PRICE : [address]: Cindy ARAUZ Acct: [id number] Unit: [id number] AGE: 27 Location: [facility] Re05/26/17 SEX: F Status: REG REF SPEC: [id number] KIKI: 05/26/17-[address]: Cindy ARAUZ REQ: [id number] RECD: 05/26/17 STATUS: COMP _ SOURCE: VAGINAL SPDESC: ORDERED: Genital Culture COMMENTS: [id number] Procedure Result Reported Site Genital Culture Final 05/28/17- 1135 ML Organism 1 YEAST Quantity 1+ Organism 2 BILLY VAGINALIS-PRESUMPTIVE Quantity 2+ Organism 3 NORMAL SALVADOR Quantity 3+ Routine genital cultures do not include selective agar for Neisseria gonorrhoeae. Molecular testing offers better test sensitivity and therefore is the preferred test methodology for identifying this organism. * ML - MAIN LAB ([facility]) . END OF REPORT * ML=Testing performed at Main Lab DEPARTMENT OF PATHOLOGY, [address] [place] [address] Kevin Rebolledo M.D. Director [facility] # [id number] 30 Presumptive Positive Presumptive positive results are [...] [address]: Naman Mo MD Acct: [id number] Unit: [id number] AGE: 27 Location: ED Re05/25/17 SEX: F Status: DEP ER SPEC: [id number] KIKI: 05/25/[address]: Naman Mo MD REQ: [id number] RECD: 05/25/17 STATUS: WALTER LEDEZMA DR: Cindy BROOKSC _ SOURCE: URINE SPDESC: ORDERED: Urine Culture Procedure Result Reported Site Urine Culture Final 05/27/17- 09 ML No growth of clinically significant organisms * ML - MAIN LAB ([facility]) . END OF REPORT * ML=Testing performed at Main Lab DEPARTMENT OF PATHOLOGY, [address] [place] [address] Kevin Rebolledo M.D. Director [facility] # [id number] 34 Because ethnic data is not always [...] [address]: Garry Batista MD Acct: [id number] Unit: [id number] AGE: 27 Location: ED Re05/11/17 SEX: F Status: DEP ER SPEC: [id number] KIKI: 05/11/[address]: Garry Batista MD REQ: [id number] RECD: 05/11/17 STATUS: WALTER LEDEZMA DR: [facility] Cindy ARAUZ _ SOURCE: URINE SPDESC: ORDERED: Urine Culture Procedure Result Reported Site Urine Culture Final 05/12/17- 1652 ML No Growth (<1,000 CFU/mL) * ML - MAIN LAB ([facility]) . END OF REPORT * ML=Testing performed at Main Lab DEPARTMENT OF PATHOLOGY, [address] [place] [address] Kevin Rebolledo M.D. Director [facility] # [id number] 37 Because ethnic data is not always [...] [address]: Garry Batista MD Acct: [id number] Unit: [id number] AGE: 27 Location: ED Re05/11/17 SEX: F Status: DEP ER SPEC: [id number] KIKI: 05/11/17 DR: Garry Batista MD REQ: [id number] RECD: 05/11/17 STATUS: WALTER LEDEZMA DR: [facility] [place]indy Lee [facility] _ SOURCE: BLOOD,VENO SPDESC: ORDERED: Blood Cult Procedure Result Reported Site Aerobic Culture Bottle Final 05/16/17- 2129 ML No Growth Day 5 Anaerobic Culture Bottle Final 05/16/17- 2129 ML No Growth Day 5 * ML - MAIN LAB ([facility]) . END OF REPORT * ML=Testing performed at Main Lab DEPARTMENT OF PATHOLOGY, [address] [place] [address] Kevin Rebolledo M.D. Director [facility] # [id number] 41 Civil Project Engineer: [id number] Civil Project Engineer: [id number] It is recognized that currently available [...] performed using the pawel HCV test ([employer] with the pawel 6800 System. Test Performed by: [facility] - [address] [address] ADDITIONAL INFORMATION This test was performed using the [employer] RealTime HCV Genotype II assay ([employer] [place], [place]). Test Performed by: [address] [address] 46 Because ethnic data is not always [...] in selective patients <6.0%. Please refer to [employer] Diabetes Association diabetic care guidelines for further [...] REFERENCE VALUE <1.0 (Negative) Test Performed by: [address] [address] 53 REFERENCE VALUE <=1.0 (Negative) 54 REFERENCE VALUE <20.0 (Negative) 55 Tests for antibodies to dsDNA and KEYLA antigens are not performed automatically unless the JACQUIE result is > or= 3.0 U. Studies performed at [facility] indicate that positive JACQUIE results <3.0 U are rarely accompanied by positive second order tests. Test Performed by: [facility] - [facility] [address] [place] [address] 56 Serologic response to B. burgdorferi infection is not detected, but cannot rule out early infection during which low or undetectable antibody levels to B. burgdorferi may be present. If clinically indicated, a new serum specimen should be submitted in 7-14 days. Test Performed by: [facility] - [address] [place] [address] 57 Because ethnic data is not always [...] [address]: Jeremy Ruvalcaba MD Acct: [id number] Unit: [id number] AGE: 26 Location: ED Re01/11/17 SEX: F Status: REG ER SPEC: [id number] KIKI: 01/11/[address] [facility] [address]: Tee Vela MD REQ: [id number] RECD: 01/11/17 STATUS: WALTER LEDEZMA DR: Cindy ARAUZ _ SOURCE: URINE SPDESC: ORDERED: Urine Culture Procedure Result Reported Site Urine Culture Final 01/13/17- 912 ML Mixed salvador; possible contamination. Suggest resubmission. * ML - MAIN LAB ([facility]) . END OF REPORT * ML=Testing performed at Main Lab DEPARTMENT OF PATHOLOGY, [address] [place] [address] Kevin Rebolledo M.D. Director [facility] # [id number] 63 Presumptive Positive Presumptive positive results are [...] : [address]: Cindy ARAUZ Acct: [id number] Unit: [id number] AGE: 26 Location: [facility] Re09/09/16 SEX: F Status: REG REF SPEC: [id number] KIKI: 09/09/16-[address] [facility] [address]: Cindy ARAUZ REQ: [id number] RECD: 09/10/16134 STATUS: COMP _ SOURCE: VAGINAL SPDESC: ORDERED: Genital Culture COMMENTS: [id number] Procedure Result Reported Site Genital Culture Final 09/12/16- 1157 ML Organism 1 YEAST Quantity 1+ Organism 2 NORMAL SALVADOR Quantity 3+ * ML - MAIN LAB ([facility]) . END OF REPORT * ML=Testing performed at Main Lab DEPARTMENT OF PATHOLOGY, [address] [place] [address] Kevin Rebolledo M.D. Director [facility] # [id number] 68 void, hazy, dark yellow 69 SEE RESULT BELOW Name: STEPHANIE PRICE : [address]: German Hernandez MD Acct: [id number] Unit: [id number] AGE: 26 Location: ED Re04/19/16 SEX: F Status: DEP ER SPEC: [id number] KIKI: 04/19/16-[address] [facility] [address]: German Hernandez MD REQ: [id number] RECD: 04/19/16 STATUS: COMP [facility] DR: Drew Goncalves MD _ SOURCE: VAGINAL [...] therapeutic success or failure. * ML - [facility] ([facility]) . END OF REPORT * ML=Testing performed at Main Lab DEPARTMENT OF PATHOLOGY, [address] [place] [address] Kevin Rebolledo M.D. Director [facility] # [id number] 70 GC/Chlamydia Source?: Endocervical Trichomonas Source: Endocervical [...] [address]: German Hernandez MD Acct: [id number] Unit: [id number] AGE: 26 Location: ED Re04/19/16 SEX: F Status: DEP ER SPEC: [id number] KIKI: 04/19/16-[address] [facility] [address]: German Hernandez MD REQ: [id number] RECD: 04/19/16 STATUS: WALTER LEDEZMA DR: Drew Goncalves MD _ SOURCE: URINE SPDESC: ORDERED: Urine Culture Procedure Result Reported Site Urine Culture Final 04/20/16- 1616 ML No Growth (<1,000 CFU/mL) * ML - MAIN LAB ([facility]) . END OF REPORT * ML=Testing performed at Main Lab DEPARTMENT OF PATHOLOGY, [address] [place] [address] Kevin Rebolledo M.D. Director [facility] # [id number] 74 Civil Project Engineer: [id number] 75 SEE RESULT BELOW Name: STEPHANIE PRICE : [address]: Jeremy Godoy MD Acct: [id number] Unit: [id number] AGE: 25 Location: [facility] Re12/23/15 SEX: F Status: REG REF SPEC: [id number] KIKI: 12/23/15-[address]: Jeremy Godoy MD REQ: [id number] RECD: 12/24/15140 STATUS: COMP _ SOURCE: VAGINAL SPDESC: ORDERED: Genital Culture COMMENTS: [id number] Procedure Result Reported Site Genital Culture Final 12/26/15- 1450 ML Organism 1 BILLY VAGINALIS - PRESUMPTIVE Quantity 3+ Organism 2 YEAST Quantity 2+ Organism 3 NORMAL SALVADOR Quantity 1+ * ML - MAIN LAB ([facility]) . END OF REPORT * ML=Testing performed at Main Lab DEPARTMENT OF PATHOLOGY, [address] [place] [address] Kevin Rebolledo M.D. Director CLIA # [id number] 76 SEE RESULT BELOW Name: STEPHANIE PRICE : [address]: Jeremy Godoy MD Acct: [id number] Unit: [id number] AGE: 25 Location: [facility] Re12/23/15 SEX: F Status: REG REF SPEC: [id number] KIKI: 12/23/[address]: Jeremy Godoy MD REQ: [id number] RECD: 12/24/157376 STATUS: SOUT _ ORDERED: IMAGE ANALYSIS, HPV/Thin Prep COMMENTS: [id number] FINAL DIAGNOSIS Negative for Intraepithelial lesion or [...] was evaluated with the assistance of the KleekPrep Test Imaging System. Due to cytologic findings at the braille typist microscope, comprehensive manual rescreening by a Pan Washer Hand may be required. The Pap Smear is [...] at Main Lab DEPARTMENT OF PATHOLOGY, [address] [place] [address] Kevin Rebolledo M.D. Director [facility] # [id number] 77 The high-risk HPV types detected by the assay include: 16, 18, 31, 33, 35, 39, 45, 51, 52, 56, 58, 59, 66, and 68. 78 [facility] Severe Sepsis and Septic Shock Management Bundle Measure requires all lactic acids initially measuring >2.0 mmol/L be repeated. Procedures Date CPT Code Description Status 07/31/2016 42097 SC/Im Injections Completed 12/23/2015 91027 Anoscopy Diagnostic Completed Encounters Type Date Location Provider CPT E/M Dx Office Visit 09/22/2017 2:35p [place] [address] F41.9 B18.2 F11.10 F31.9 Z11.1 Office Visit 08/25/2017 3:55p [place] [address] Z71.51 F11.10 F19.10 B18.2 N20.0 Office Visit 06/23/2017 11:45a [place] [address] K20.8 F41.9 N20.0 M54.5 B18.2 F11.21 N83.202 Office Visit 05/26/2017 1:55p [place] [address] N76.0 N83.202 F41.9 R10.84 F11.21 N20.0 M54.5 Office Visit 05/17/2017 4:30p [place] [address] M54.5 F41.9 B18.2 F11.21 R10.84 F17.210 N83.202 N20.0 K59.00 Office Visit 05/04/2017 11:20a [place] [address] B18.2 F11.21 R19.7 R10.84 F17.210 J06.9 J03.90 Office Visit 04/07/2017 1:55p [place] [address] B18.2 F11.21 R10.84 G43.009 M54.9 Office Visit 03/15/2017 3:50p [place] [address] F25.0 F11.21 R10.84 G43.009 F17.210 Z23 Office Visit 03/02/2017 11:40a [place] [address] F11.20 F31.9 K21.9 M54.13 R10.84 F17.210 Office Visit 01/15/2017 9:15a [place] [address] F11.20 F31.9 R10.84 N91.2 Office Visit 12/29/2016 8:40a [place] [address] R10.84 F11.20 G43.009 M54.9 R31.9 F31.9 Office Visit 12/07/2016 10:05a [place] [address] R10.84 F11.20 G43.009 F31.9 M54.9 Office Visit 11/02/2016 4:10p [place] [address] R10.84 R19.7 F11.20 G43.009 N92.6 R10.30 F31.9 Office Visit 10/20/2016 2:40p [place] [address] A60.04 R10.84 M54.9 F11.20 G43.009 Office Visit 10/07/2016 2:35p [place] [address] R10.84 B00.9 F11.20 Office Visit 09/09/2016 2:35p [place] [address] R10.84 F11.20 F17.210 N76.0 Z11.3 N91.2 G43.009 R19.7 Office Visit 08/17/2016 2:30p [place] [address] R10.84 R19.7 F11.20 K08.89 Office Visit 08/03/2016 4:50p [place] [address] F11.20 R10.84 F31.9 R19.7 J02.0 Office Visit 07/31/2016 10:00a Main Office Jeremy Godoy M.D. 12563 J02.0 Office Visit 07/29/2016 11:25a [place] [address] R10.84 F11.20 F31.9 R31.9 F17.210 G25.81 J02.0 Office Visit 07/13/2016 9:45a [place] [address] R10.84 F11.20 R31.21 F31.9 F17.210 Office Visit 06/24/2016 2:35p [place] [address] R10.84 F11.20 R31.9 F31.9 Office Visit 06/17/2016 4:15p [place] [address] R10.84 R19.5 F11.20 F31.9 R31.9 Z79.899 Office Visit 12/23/2015 2:00p Main Office Jeremy Godoy M.D. 84109 Z71.89 R10.84 R19.5 Z80.49 Plan of Care [...]
--- OUTSIDE RECORDS SUMMARY | 2018-01-13 21:08 | XMS REPORT ---
:1990 External Reference #:[id number] Author Organization [facility] Address [address] [place] [address] Phone [phone] Care Team Providers Name Role Phone HCP given Primary Care Physician Unavailable Payers Type Date Identification Numbers Payment Provider Subscriber Commercial Policy Number: [id number] [place] Anitra Price Ind/Ppo/Hmo/Pos PayID: [id number] [facility] [address] [place] [address] [facility] Part B Policy Number: [id number] Medicaid Stephanie Price PayID: [id number] [address] [place] [address] Problems Date Description Provider Status Onset: 06/17/2016 [...] In heroin, The Past cocaine--inpatient rehab at [facility] 01/2017, relapse 06/2017 Smoking Light tobacco smoker [...] Patient is currently sexually active Age 1st [place] 16 Years Old STD's No STD History [...] by F31.9 Rosa, 11/02/2016 mouth at [place], [place] night for anxiety F11.20 Hydroxyzine 08/03/2016 - [...] 5-325m 30tabs take 1 tablet up R10.84 [facility], taminophen 08/03/2016 g to 2 times a day [place], as needed for PA pain Suboxone 05/20/2016 - Hx Film 8-2mg 1 by mouth every Unknown 06/23/2016 morning; suboxone prescriber# [id number] Clonidine HCL 05/20/2016 - Hx Tablets ER 0.1mg 30tabs 1 tab by mouth at [facility], ER 08/03/2016 12HR bedtime KAVITA White Diflucan 12/30/2015 - Hx Tablets 150mg 1tabs 1 tab by mouth [facility], 06/16/2016 once KAVITA White Metrogel-Vagi 12/30/2015 - Hx Gel 0.75% 70gm 1 applicatorful [facility], nal 06/16/[address] vagina [place], every night at [place] bedtime x5 days No Active 12/23/2015 - Hx Unknown Medications 12/30/2015 Diphenoxylate - Hx Tablets 2.5-0. take 2 tablets by R19.7 Unknown -Atropine 03/14/2017 025mg mouth 4 times per day as needed for diarrhea Baclofen - Hx Tablets 10mg take 1 tablet by Unknown 05/17/2017 mouth three times a day Nystatin - Hx Suspension 708270 take 4 Unknown 05/25/2017 Unit/M milliliters by L mouth four times a day as directed Medications Administered in Office Medication Date Status Form Strength Qnty SIG Indications Ordering Provider SC/Im Administered Injection Jeremy Godoy M.D. Immunizations CPT Code Status Date Vaccine Lot # [id number] Given 08/13/2017 Adacel or Boostrix, TDaP 44599 Given 03/15/2017 Adacel or Boostrix, TDaP [id number] 49652 Given 05/29/2010 Flu, Split Virus 3Yrs 87178 Given 08/09/2008 Gardasil HPV vaccine 77287 Given 03/22/2008 Varicella (Chicken Pox) Immunization 11605 Given 03/22/2008 Flu, Split Virus 3Yrs 31895 Given 03/22/2008 Gardasil HPV vaccine 92222 Given 07/12/2005 Menactra Menningitis Vaccine 75513 Given 07/12/2005 Adacel or Boostrix, TDaP 81288 Given 10/24/1996 Oral Poliovirus Immunization 26619 Given 10/24/1996 MMR Virus Immunization 35705 Given 10/24/1996 Dtap Immunization (Tripedia) (Infanrix) 44711 Given 10/21/1993 Hep B Immunization, Ped/Adolescent To 11 Yrs 21241 Given 05/27/1993 Hep B Immunization, Ped/Adolescent To 11 Yrs 45684 Given 04/29/1993 Hep B Immunization, Ped/Adolescent To 11 Yrs 51744 Given 04/29/1993 DTP-Hib (Tetramune) 14153 Given 04/29/1993 Oral Poliovirus Immunization 97371 Given 04/29/1993 MMR Virus Immunization 05397 Given 1992 DTP Immunization 83491 Given 1992 3 dose Hib (PRP-Omp) 44943 Given 1992 Oral Poliovirus Immunization 89234 Given 1992 DTP Immunization 98206 Given 1992 3 dose Hib (PRP-Omp) 59716 Given 1992 Oral Poliovirus Immunization 92813 Given 1992 DTP Immunization 63518 Given 1992 3 dose Hib (PRP-Omp) Vital [...] Poc Ketone, Urine Negative Negative Poc Specific [place], Urine 1.020 1.010-1.030 Poc Blood, Urine 2+ [...] Color Yellow Urine Appearance Cloudy Urine Specific [place] 1.020 1.010-1.030 Urine pH 6.0 5-9 Urine [...] Color Yellow Urine Appearance Clear Urine Specific [place] 1.013 1.010-1.030 Urine pH 6.0 5-9 Urine [...] Color Yellow Urine Appearance Clear Urine Specific [place] 1.020 1.010-1.030 Urine pH 6.0 5-9 Urine [...] Color Yellow Urine Appearance Cloudy Urine Specific [place] 1.010 1.010-1.030 Urine pH 7.0 5-9 Urine [...] test finding 04/08/2017 Hepatitis C Rna Quant 113054 IU/mL Undetected 44 Hepatitis C Genotype 1a [...] Color Alexsandra Urine Appearance Cloudy Urine Specific [place] 1.026 1.010-1.030 Urine pH 7.0 5-9 Urine [...] Color Colorless Urine Appearance Clear Urine Specific [place] 1.002 Low 1.010-1.030 Urine pH 6.0 5-9 [...] - Urine Methanphetamines - Urine Benzodiazepines QN Wilson - Urine Oxycodone QL + Urine Drug Screen Inhouse 10/07/2016 Ua Cocaine - Ua Opiates - Ua Amphetamines - Urine Methanphetamines - Urine Benzodiazepines QN Wilson - Urine Oxycodone QL + Urine Drug Screen Inhouse 09/09/2016 Ua Cocaine - Ua Opiates + Ua Amphetamines - Urine Methanphetamines - Urine Benzodiazepines QN Wilson - Urine Oxycodone QL + Laboratory test finding 09/09/2016 Culture Genital & SEE RESULT BELOW 67 Sensitivity Urine Drug Screen 08/03/2016 Ua Cocaine _ Inhouse Ua Opiates + Ua Amphetamines _ Urine Methanphetamines _ Urine Benzodiazepines QN Wilson _ Urine Oxycodone QL + Laboratory test finding 07/29/2016 Culture Throat Rapid Screen positive Urine Drug Screen Inhouse 07/13/2016 Ua Cocaine + Ua Opiates + Ua Amphetamines - Urine Methanphetamines - Urine Benzodiazepines QN Wilson - Urine Oxycodone QL + Ua Inhouse 06/17/2016 Ua Glucose - 68 Ua Bilirubin - 68 Ua Ketones - 68 Ua Specific [place] 1.030 68 Ua Blood 3+ 68 Ua [...] Color Alexsandra Urine Appearance Cloudy Urine Specific [place] 1.030 1.010-1.030 Urine pH 5.0 5-9 Urine [...] Lactic Acid 0.6 mmol/L 0.5-2.0 78 1 [id number] 2 SEE RESULT BELOW Name: STEPHANIE PRICE : [address]: Viktor Delgado MD Acct: [id number] Unit: [id number] AGE: 27 Location: [facility] Re12/23/17 SEX: F Status: DEP ER SPEC: [id number] KIKI: 12/23/[address]: Viktor Delgado MD REQ: [id number] RECD: 12/23/17 STATUS: WALTER LEDEZMA DR: Cindy ARAUZ _ SOURCE: URINE SPDESC: ORDERED: Urine Culture COMMENTS: [id number] Procedure Result Reported Site Urine Culture Final 12/25/17- 09 ML Organism 1 ESCHERICHIA COLI [place] Count >100,000 (Many) CFU/ML 1. ESCHERICHIA COLI [...] . END OF REPORT DEPARTMENT OF PATHOLOGY, [address] [place] [address] Kevin Rebolledo M.D. Director [facility] # [id number] 3 Sea Shell Gatherer: [id number] 4 Because ethnic data is not always [...] Infect. Dis. 2017;64(2):111-115]. 8 Test Performed by: [facility] [address] [place] [address] 9 SEE RESULT BELOW Name: STEPHANIE PRICE : [address]: Dimitry Ruiz MD Acct: [id number] Unit: [id number] AGE: 27 Location: ED Re09/18/17 SEX: F Status: DEP ER SPEC: [id number] KIKI: 09/18/[address]: Jenn WALLS REQ: [id number] RECD: 09/18/17 STATUS: WALTER LEDEZMA DR: Cindy Ruiz MD _ SOURCE: URINE SPDESC: ORDERED: Urine Culture Procedure Result Reported Site Urine Culture Final 09/19/17- 0734 ML No Growth (<1,000 CFU/mL) * ML - Main Lab . END OF REPORT DEPARTMENT OF PATHOLOGY, [address] [place] [address] Kevin Rebolledo M.D. Director [facility] # [id number] 10 Because ethnic data is not always [...] [address]: Dimitry Ruiz MD Acct: [id number] Unit: [id number] AGE: 27 Location: ED Re09/18/17 SEX: F Status: DEP ER SPEC: [id number] KIKI: 09/18/[address]: Jenn WALLS REQ: [id number] RECD: 09/18/17 STATUS: COMP DARIEN DR: Cindy [...] CONTINUED ON NEXT PAGE DEPARTMENT OF PATHOLOGY, [address] [place] [address] Kevin Rebolledo M.D. Director [facility] # [id number] Patient: STEPHANIE PRICE [id number] (Continued) Specimen: [id number] Collected: 09/18/17 Received: 09/18/17 (Continued) Procedure Result Reported Site Trichomonas: Vaginal DNA Probe Final (continued) 09/19/17- 854 The presence or absence of T. vaginalis cannot be used as a test for therapeutic success or failure. * ML - Main Lab . END OF REPORT DEPARTMENT OF PATHOLOGY, [address] [place] [address] Kevin Rebolledo M.D. Director [facility] # [id number] 14 Result in log IU/mL is 2.79. ADDITIONAL INFORMATION The quantification range of this assay is 15 to 100,000,000 IU/mL (1.18 log to 8.00 log IU/mL). Testing was performed using the pawel HCV test ([employer] with the pawel Scarosso0 System. Test Performed by: [facility] [address] [place] [address] 15 SEE RESULT BELOW Name: DEESTEPHANIE : [address]: Jose Hale MD Acct: [id number] Unit: [id number] AGE: 27 Location: ED Re08/13/17 SEX: F Status: DEP ER SPEC: [id number] KIKI: 08/13/[address]: Calvin Hale MD REQ: [id number] RECD: 08/13/17 STATUS: WALTER LEDEZMA DR: Cindy [...] . END OF REPORT DEPARTMENT OF PATHOLOGY, [address] [place] [address] Kevin Rebolledo M.D. Director [facility] # [id number] 16 GC/Chlamydia Source?: Endocervical Trichomonas Source: Endocervical 17 <5.0 Negative 5.0 - 25.0 Indeterminate (Repeat testing recommended after 72 hours) >25.0 Positive Perimenopausal women can display HCG levels of up to 20 mIU/mL 18 Verbal to FINN MANSFIELD by [id number] at 0837 on 08/16/17. Results read back accurately. Submitted to [facility] via [employer] system by [id number] at 1411 on 08/16/17. 19 Verbal to FINN MANSFIELD by [email or web address] at 0837 on 08/16/17. Results read back accurately. Submitted to [facility] via [employer] system by [id number] at 1411 on 08/16/17. 20 High reactive [...] [address]: William Barker MD Acct: [id number] Unit: [id number] AGE: 27 Location: [facility] Re06/21/17 SEX: F Status: DEP REF SPEC: [id number] KIKI: 06/21/17-1422 [facility] [address]: William Barker MD REQ: [id number] RECD: 06/21/17160 STATUS: WALTER LEDEZMA DR: Cindy Lee RPA-C _ SOURCE: GAS ANTRUM SPDESC: ORDERED: Clotest Procedure Result Reported Site Clotest Final 06/22/17839 ML Clotest Negative * ML - Main Lab . END OF REPORT DEPARTMENT OF PATHOLOGY, [address] [place] [address] Kevin Rebolledo M.D. Director [place] # [id number] SEE RESULT BELOW Name: STEPHANIE PRICE : [address]: William Barker MD Acct: [id number] Unit: [id number] AGE: 27 Location: [facility] Re06/21/17 SEX: F Status: DEP REF SPEC: [id number] KIKI: 06/21/17-1340 [facility] [address]: William Barker MD REQ: [id number] RECD: 06/21/171144 STATUS: DESHAUN LEDEZMA DR: Cindy Lee [facility] _ ORDERED: LEVEL 4 COMMENTS: [id number] FINAL DIAGNOSIS Duodenum, biopsy: -- Benign small [...] 1147 END OF REPORT DEPARTMENT OF PATHOLOGY, [address] [place] [address] Kevin Rebolledo M.D. Director [facility] # [id number] 29 SEE RESULT BELOW Name: STEPHANIE PRICE : [address]: Cindy ARAUZ Acct: [id number] Unit: [id number] AGE: 27 Location: [facility] Re05/26/17 SEX: F Status: REG REF SPEC: [id number] KIKI: 05/26/17-[address]: Cindy ARAUZ REQ: [id number] RECD: 05/26/17 STATUS: COMP _ SOURCE: VAGINAL SPDESC: ORDERED: Genital Culture COMMENTS: [id number] Procedure Result Reported Site Genital Culture Final 05/28/17- 1135 ML Organism 1 YEAST Quantity 1+ Organism 2 BILLY VAGINALIS-PRESUMPTIVE Quantity 2+ Organism 3 NORMAL SALVADOR Quantity 3+ Routine genital cultures do not include selective agar for Neisseria gonorrhoeae. Molecular testing offers better test sensitivity and therefore is the preferred test methodology for identifying this organism. * ML - MAIN LAB ([facility]) . END OF REPORT * ML=Testing performed at Main Lab DEPARTMENT OF PATHOLOGY, [address] [place] [address] Kevin Rebolledo M.D. Director [facility] # [id number] 30 Presumptive Positive Presumptive positive results are [...] [address]: Naman Mo MD Acct: [id number] Unit: [id number] AGE: 27 Location: ED Re05/25/17 SEX: F Status: DEP ER SPEC: [id number] KIKI: 05/25/[address]: Naman Mo MD REQ: [id number] RECD: 05/25/17 STATUS: WALTER LEDEZMA DR: Cindy BROOKSC _ SOURCE: URINE SPDESC: ORDERED: Urine Culture Procedure Result Reported Site Urine Culture Final 05/27/17- 09 ML No growth of clinically significant organisms * ML - MAIN LAB ([facility]) . END OF REPORT * ML=Testing performed at Main Lab DEPARTMENT OF PATHOLOGY, [address] [place] [address] Kevin Rebolledo M.D. Director [facility] # [id number] 34 Because ethnic data is not always [...] [address]: Garry Batista MD Acct: [id number] Unit: [id number] AGE: 27 Location: ED Re05/11/17 SEX: F Status: DEP ER SPEC: [id number] KIKI: 05/11/[address]: Garry Batista MD REQ: [id number] RECD: 05/11/17 STATUS: WALTER LEDEZMA DR: [facility] Cindy ARAUZ _ SOURCE: URINE SPDESC: ORDERED: Urine Culture Procedure Result Reported Site Urine Culture Final 05/12/17- 1652 ML No Growth (<1,000 CFU/mL) * ML - MAIN LAB ([facility]) . END OF REPORT * ML=Testing performed at Main Lab DEPARTMENT OF PATHOLOGY, [address] [place] [address] Kevin Rebolledo M.D. Director [facility] # [id number] 37 Because ethnic data is not always [...] mIU/mL 40 SEE RESULT BELOW Name: STEPHANIE PRIEC : [address]: Garry Batista MD Acct: [id number] Unit: [id number] AGE: 27 Location: ED Re05/11/17 SEX: F Status: DEP ER SPEC: [id number] KIKI: 05/11/17 DR: Garry Batista MD REQ: [id number] RECD: 05/11/17 STATUS: WALTER LEDEZMA DR: [facility] Cindy Lee [facility] _ SOURCE: BLOOD,VENO SPDESC: ORDERED: Blood Cult Procedure Result Reported Site Aerobic Culture Bottle Final 05/16/17- 2129 ML No Growth Day 5 Anaerobic Culture Bottle Final 05/16/17- 2129 ML No Growth Day 5 * ML - MAIN LAB ([facility]) . END OF REPORT * ML=Testing performed at Main Lab DEPARTMENT OF PATHOLOGY, [address] [place] [address] Kevin Rebolledo M.D. Director [facility] # [id number] 41 Sea Shell Gatherer: [id number] Sea Shell Gatherer: [id number] 43 It is recognized that currently available [...] performed using the pawel HCV test ([employer] with the pawel 6800 System. Test Performed by: [facility] - [address] [address] 45 ADDITIONAL INFORMATION This test was performed using the [employer] RealTime HCV Genotype II assay ([employer] [place], [place]). Test Performed by: [address] [address] 46 Because ethnic data is not always [...] in selective patients <6.0%. Please refer to [place] [employer] diabetic care guidelines for further [...] REFERENCE VALUE <1.0 (Negative) Test Performed by: [address] [address] 53 REFERENCE VALUE <=1.0 (Negative) 54 REFERENCE VALUE <20.0 (Negative) 55 Tests for antibodies to dsDNA and KEYLA antigens are not performed automatically unless the JACQUIE result is > or= 3.0 U. Studies performed at [facility] indicate that positive JACQUIE results <3.0 U are rarely accompanied by positive second order tests. Test Performed by: [facility] - [facility] [address] [place] [address] 56 Serologic response to B. burgdorferi infection is not detected, but cannot rule out early infection during which low or undetectable antibody levels to B. burgdorferi may be present. If clinically indicated, a new serum specimen should be submitted in 7-14 days. Test Performed by: [facility] - [address] [place] [address] 57 Because ethnic data is not always [...] [address]: Jeremy Ruvalcaba MD Acct: [id number] Unit: [id number] AGE: 26 Location: ED Re01/11/17 SEX: F Status: REG ER SPEC: [id number] KIKI: 01/11/17 [facility] [address]: Tee Vela MD REQ: [id number] RECD: 01/11/17 STATUS: WALTER LEDEZMA DR: Cindy ARAUZ _ SOURCE: URINE SPDESC: ORDERED: Urine Culture Procedure Result Reported Site Urine Culture Final 01/13/17- 912 ML Mixed salvador; possible contamination. Suggest resubmission. * ML - MAIN LAB ([facility]) . END OF REPORT * ML=Testing performed at Main Lab DEPARTMENT OF PATHOLOGY, [address] [place] [address] Kevin Rebolledo M.D. Director [facility] # [id number] 63 Presumptive Positive Presumptive positive results are [...] : [address]: Cindy ARAUZ Acct: [id number] Unit: [id number] AGE: 26 Location: [facility] Re09/09/16 SEX: F Status: REG REF SPEC: [id number] KIKI: 09/09/16-1624 [facility] [address]: Cindy ARAUZ REQ: [id number] RECD: 09/10/16134 STATUS: COMP _ SOURCE: VAGINAL SPDESC: ORDERED: Genital Culture COMMENTS: [id number] Procedure Result Reported Site Genital Culture Final 09/12/16- 1157 ML Organism 1 YEAST Quantity 1+ Organism 2 NORMAL [place] Quantity 3+ * ML - MAIN LAB ([facility]) . END OF REPORT * ML=Testing performed at Main Lab DEPARTMENT OF PATHOLOGY, [address] [place] [address] Kevin Rebolledo M.D. Director [facility] # [id number] 68 void, hazy, dark yellow 69 SEE RESULT BELOW Name: STEPHANIE PRICE : [address]: German Hernandez MD Acct: [id number] Unit: [id number] AGE: 26 Location: ED Re04/19/16 SEX: F Status: DEP ER SPEC: [id number] KIKI: 04/19/16-2019 [facility] [address]: German Hernandez MD REQ: [id number] RECD: 04/19/16 STATUS: COMP [facility] DR: Drew Goncalves MD _ SOURCE: [...] therapeutic success or failure. * ML - [facility] ([facility]) . END OF REPORT * ML=Testing performed at Main Lab DEPARTMENT OF PATHOLOGY, [address] [place] [address] Kevin Rebolledo M.D. Director [facility] # [id number] 70 GC/Chlamydia Source?: Endocervical Trichomonas Source: Endocervical [...] [address]: German Hernandez MD Acct: [id number] Unit: [id number] AGE: 26 Location: ED Re04/19/16 SEX: F Status: DEP ER SPEC: [id number] KIKI: 04/19/16-1949 [facility] DR: German Hernandez MD REQ: [id number] RECD: 04/19/16 STATUS: WALTER LEDEZMA DR: Drew Goncalves MD _ SOURCE: URINE SPDESC: ORDERED: Urine Culture Procedure Result Reported Site Urine Culture Final 04/20/16- 1616 ML No Growth (<1,000 CFU/mL) * ML - MAIN LAB ([facility]) . END OF REPORT * ML=Testing performed at Main Lab DEPARTMENT OF PATHOLOGY, [address] [place] [address] Kevin Rebolledo M.D. Director [facility] # [id number] 74 Sea Shell Gatherer: [id number] 75 SEE RESULT BELOW Name: STEPHANIE PRICE : [address]: Jeremy Godoy MD Acct: [id number] Unit: [id number] AGE: 25 Location: [facility] Re12/23/15 SEX: F Status: REG REF SPEC: [id number] KIKI: 12/23/15-[address]: Jeremy Godoy MD REQ: [id number] RECD: 12/24/15140 STATUS: COMP _ SOURCE: VAGINAL SPDESC: ORDERED: Genital Culture COMMENTS: [id number] Procedure Result Reported Site Genital Culture Final 12/26/15- 1450 ML Organism 1 BILLY VAGINALIS - PRESUMPTIVE Quantity 3+ Organism 2 YEAST Quantity 2+ Organism 3 NORMAL [place] Quantity 1+ * ML - MAIN LAB ([facility]) . END OF REPORT * ML=Testing performed at Main Lab DEPARTMENT OF PATHOLOGY, [address] [place] [address] Kevin Rebolledo M.D. Director CLIA # [id number] 76 SEE RESULT BELOW Name: STEPHANIE PRICE : [address]: Jeremy Godoy MD Acct: [id number] Unit: [id number] AGE: 25 Location: [facility] Re12/23/15 SEX: F Status: REG REF SPEC: [id number] KIKI: 12/23/[address]: Jeremy Godoy MD REQ: [id number] RECD: 12/24/158795 STATUS: SOUT _ ORDERED: IMAGE ANALYSIS, HPV/Thin Prep COMMENTS: [id number] FINAL DIAGNOSIS Negative for Intraepithelial lesion or [...] was evaluated with the assistance of the PiqoraPrep Test Imaging System. Due to cytologic findings at the transporter driver microscope, comprehensive manual rescreening by a Engineering Leader may be required. The Pap Smear is [...] performed at Main Lab DEPARTMENT OF PATHOLOGY, [address] [place] [address] Kevin Rebolledo M.D. Director [facility] # [id number] 77 The high-risk HPV types detected by the assay include: 16, 18, 31, 33, 35, 39, 45, 51, 52, 56, 58, 59, 66, and 68. 78 [facility] Severe Sepsis and Septic Shock Management Bundle Measure requires all lactic acids initially measuring >2.0 mmol/L be repeated. Procedures Date CPT Code Description Status 07/31/2016 86311 SC/Im Injections Completed 12/23/2015 64250 Anoscopy Diagnostic Completed Encounters Type Date Location Provider CPT E/M Dx Office Visit 09/22/2017 2:35p [place] [address] F41.9 B18.2 F11.10 F31.9 Z11.1 Office Visit 08/25/2017 3:55p [place] [address] Z71.51 F11.10 F19.10 B18.2 N20.0 Office Visit 06/23/2017 11:45a [place] [address] K20.8 F41.9 N20.0 M54.5 B18.2 F11.21 N83.202 Office Visit 05/26/2017 1:55p [place] [address] N76.0 N83.202 F41.9 R10.84 F11.21 N20.0 M54.5 Office Visit 05/17/2017 4:30p [place] [address] M54.5 F41.9 B18.2 F11.21 R10.84 F17.210 N83.202 N20.0 K59.00 Office Visit 05/04/2017 11:20a [place] [address] B18.2 F11.21 R19.7 R10.84 F17.210 J06.9 J03.90 Office Visit 04/07/2017 1:55p [place] [address] B18.2 F11.21 R10.84 G43.009 M54.9 Office Visit 03/15/2017 3:50p [place] [address] F25.0 F11.21 R10.84 G43.009 F17.210 Z23 Office Visit 03/02/2017 11:40a [place] [address] F11.20 F31.9 K21.9 M54.13 R10.84 F17.210 Office Visit 01/15/2017 9:15a [place] [address] F11.20 F31.9 R10.84 N91.2 Office Visit 12/29/2016 8:40a [place] [address] R10.84 F11.20 G43.009 M54.9 R31.9 F31.9 Office Visit 12/07/2016 10:05a [place] [address] R10.84 F11.20 G43.009 F31.9 M54.9 Office Visit 11/02/2016 4:10p [place] [address] R10.84 R19.7 F11.20 G43.009 N92.6 R10.30 F31.9 Office Visit 10/20/2016 2:40p [place] [address] A60.04 R10.84 M54.9 F11.20 G43.009 Office Visit 10/07/2016 2:35p [place] [address] R10.84 B00.9 F11.20 Office Visit 09/09/2016 2:35p [place] [address] R10.84 F11.20 F17.210 N76.0 Z11.3 N91.2 G43.009 R19.7 Office Visit 08/17/2016 2:30p [place] [address] R10.84 R19.7 F11.20 K08.89 Office Visit 08/03/2016 4:50p [place] [address] F11.20 R10.84 F31.9 R19.7 J02.0 Office Visit 07/31/2016 10:00a Main Office Jeremy Godoy M.D. 515[address] J02.0 Office Visit 07/29/2016 11:25a [place] [address] R10.84 F11.20 F31.9 R31.9 F17.210 G25.81 J02.0 Office Visit 07/13/2016 9:45a [place] [address] R10.84 F11.20 R31.21 F31.9 F17.210 Office Visit 06/24/2016 2:35p [place] [address] R10.84 F11.20 R31.9 F31.9 Office Visit 06/17/2016 4:15p [place] [address] R10.84 R19.5 F11.20 F31.9 R31.9 Z79.899 Office Visit 12/23/2015 2:00p Main Office Jeremy Godoy M.D. 61177 Z71.89 R10.84 R19.5 Z80.49 Plan of Care [...]
== END 2018-01-13 22:12 | disposition left against medical advice (07) ==
LOC: ED 20:49
DX: F11.90 Opioid use, unspecified, uncomplicated (principal); Z53.21 Procedure and treatment not carried out due to patient leaving prior to being seen by health care provider

== ENCOUNTER 2018-01-21 11:12 | Emergency (ER) | payer BC, MEDICAID ==
[2018-01-21 11:30] VITALS: BP 114/59
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
--- NOTE | 2018-01-21 12:16 | RAD ---
Indication: Pain around the RIGHT lower ribs from the side to the back. Injury 2 days ago. Comparison: November 10, 2017 Technique: Dual energy PA chest and 2 additional dedicated RIGHT rib views obtained. Report: Negative for RIGHT rib fracture, pulmonary contusion, pleural effusion, pneumothorax. The heart, pulmonary vasculature, and mediastinal contours are unremarkable. IMPRESSION: #. Negative exam.
[2018-01-21] MEDS ORDERED: Ketorolac INJ* 30 MG/ML 1 ML VIAL IM ONE (12:31)
== END 2018-01-21 12:55 | disposition home or self-care (01) ==
LOC: UCEAST 11:12
DX: S20.219A Contusion of unspecified front wall of thorax, initial encounter (principal); S20.229A Contusion of unspecified back wall of thorax, initial encounter; Y04.2XXA Assault by strike against or bumped into by another person, initial encounter; Y92.9 Unspecified place or not applicable; S06.0X9A Concussion with loss of consciousness of unspecified duration, initial encounter; B19.20 Unspecified viral hepatitis C without hepatic coma; F17.210 Nicotine dependence, cigarettes, uncomplicated; R31.29 Other microscopic hematuria
CPT/HCPCS: 81003; 96372; 99212; G0463; J1885

== ENCOUNTER 2018-03-24 10:41 | Emergency (ER) | payer BC, MEDICAID ==
--- NOTE | 2018-03-24 10:50 | UC ---
Throat Pain/Nasal Denny HPI - HPI Summary HPI Summary: 28 yo female presents with sore throat and tonsil swelling for the last week. She tells me that since 12/2017 she has been having this every 3-4 weeks, usually gets better in a day or two, but this time is prolonged. She is able to eat and drink, but says that it hurts to swallow. Has not been taking anything OTC. She does smoke daily. Denies fever, chills, sinus symptoms, SOB, chest pain , n/v. She is also complaining of a rash on her chest that she noticed over the last 2 days that is itchy. She tells me that she started suboxone 3 weeks ago and wonders if it is from that, as a few months ago when she started suboxone - she developed a rash as well, but it was a few days after starting the suboxone and not 3 weeks later. She is scheduled to see the suboxone clinic on 03/28 - History of Current Complaint Stated Complaint: SORE THROAT Time Seen by Provider: 03/24/18 10:45 Hx Obtained From: Patient Hx Last Menstrual Period: nexplanon Onset/Duration: Sudden Onset Pain Intensity: 0 Pain Scale Used: 0-10 Numeric - Allergies/Home Medications Allergies/Adverse Reactions: Allergies Allergy/AdvReac Type Severity Reaction Status Date / Time amoxicillin [From Augmentin] Allergy Hives Verified 03/24/18 10:59 clavulanic acid Allergy Hives Verified 03/24/18 10:59 [From Augmentin] Penicillins Allergy Hives Verified 03/24/18 10:59 CAT Allergy Hives Uncoded 03/24/18 10:59 Home Medications: Home Medications Buprenorp/Nalox 8-2 MG SL TAB [Suboxone 8-2 mg SL TAB*] 1 tab PO BID 03/24/18 [ History Confirmed 03/24/18] diphenhydrAMINE HCl [Benadryl Allergy] 50 mg PO DAILY PRN 03/24/18 [History Confirmed 03/24/18] PMH/Surg Hx/FS Hx/Imm Hx Psychological History: Anxiety Other History Of: Hepatitis C - Surgical History Surgical History: Yes Surgery Procedure, Year, and Place: 06/14/14 - Family History Known Family History: Positive: Cardiac Disease - RBBB (mother), Hypertension, Diabetes, Other - COLON and CERVICAL CA - Social History Lives: With Family Alcohol Use: None Substance Use Type: None Substance Use Comment - Amount & Last Used: opiates hx Smoking Status (MU): Heavy Every Day Tobacco Smoker Type: Cigarettes Amount Used/How Often: 1/2 PPD Length of Time of Smoking/Using Tobacco: 6 YEARS Have You Smoked in the Last Year: Yes Household Exposure Type: Cigarettes - Immunization History Most Recent Influenza Vaccination: NOT UTD Review of Systems All Other Systems Reviewed And Are Negative: Yes Constitutional: Positive: Negative Skin: Positive: Rash Eyes: Positive: Negative ENT: Positive: Sore Throat Respiratory: Positive: Negative Cardiovascular: Positive: Negative Neurovascular: Positive: Negative Neurological: Positive: Negative Psychological: Positive: Negative Physical Exam - Summary Physical Exam Summary: GENERAL: NAD. WDWN. No pain distress. SKIN: Upper chest with flat erythematous rash that blanches. No hives, open wounds, or blistering. NTTP. No warmth. HEENT: Head: AT/NC Eyes: Conjunctiva clear without inflammation or discharge. Ears: Hearing grossly normal. TMs intact, no bulging, erythema, or edema. Nose: Nasal mucosa pink and moist. NTTP maxillary and frontal sinus. Throat: Posterior oropharynx mild erythema and 3+ tonsillar enlargement. Scant exudates. Uvula midline. Slight hoarse voice. NECK: Supple. Mild tonsillar LAD. CHEST: CTAB. No r/r/w. No accessory muscle use. Breathing comfortably and in no distress. CV: RRR. Without m/r/g. Pulses intact. Cap refill <2seconds NEURO: Alert. PSYCH: Age appropriate behavior. Triage Information Reviewed: Yes Vital Signs: Vital Signs: Temp Pulse Resp BP Pulse Ox 97.7 F 98 18 100/69 99 03/24/18 10:52 03/24/18 10:52 03/24/18 10:52 03/24/18 10:52 03/24/18 10:52 Vital Signs Reviewed: Yes Throat Pain/Nasal Course/Dx - Course Course Of Treatment: Will treat her with zpak and prednisone for her tonsillitis and rash. I am unsure if this rash is due to her suboxone as she has been on it for 3 weeks without issue. I advised her to discuss this with her clinic at her f/u appt on 03/28. Regarding her issues with sore throats and hoarse voice, discussed with her today that if treatment from today's visit does not improve her symptoms or if this continues to be a reocurring issue - will refer to ENT for further evaluation. - Differential Dx/Diagnosis Provider Diagnosis: Tonsillitis, Rash Discharge - Sign-Out/Discharge Documenting (check all that apply): Patient Departure All imaging exams completed and their final reports reviewed: No Studies - Discharge Plan Condition: Stable Disposition: HOME Prescriptions: Azithromycin TAB* [Zithromax TAB (Z-TO) 250 mg #6 tabs] 2 tab PO .TODAY, THEN 1 DAILY #1 to predniSONE TAB* [Deltasone 20 MG TAB*] 40 mg PO DAILY #10 tab Patient Education Materials: Tonsillitis (ED) Referrals: Rosa ARAUZ,Cindy Lynn [Primary Care Provider] - Additional Instructions: If you develop a fever, shortness of breath, chest pain, new or worsening symptoms - please call your PCP or go to the ED. - Billing Disposition and Condition Condition: STABLE Disposition: Home
[2018-03-24 10:59] VITALS: BP 100/69
== END 2018-03-24 11:20 | disposition home or self-care (01) ==
LOC: UCEAST 10:41
DX: J03.90 Acute tonsillitis, unspecified (principal); R21 Rash and other nonspecific skin eruption; Z88.1 Allergy status to other antibiotic agents; Z88.0 Allergy status to penicillin; F17.210 Nicotine dependence, cigarettes, uncomplicated
CPT/HCPCS: 99212; G0463

== ENCOUNTER 2018-06-09 11:49 | Emergency (ER) | payer MEDICAID, OTHER ==
--- OUTSIDE RECORDS SUMMARY | 2018-06-09 11:53 | XMS REPORT | Continuity of Care Document ---
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 Squamous Epithelial Cell Present Abnormal Absent Urine Amorphous Crystals Present Abnormal Absent Urine Drug 05/25/2017 [facility] Amphetamine Ur Presumptive Abnormal None 33 SCR ED & [phone] Screen Posi <SEE Detect Pain NOTE> Clinic Barbiturates Urine Screen None Detected None Detect Benzodiazepine Urine Screen None Detected None Detect Urine Cannabinoids Screen None Detected None Detect Urine Cocaine Screen Presumptive Posi <SEE NOTE> Abnormal None Detect 34 Urine Opiates Screen None Detected None Detect Urine Phencyclidine Screen None Detected None Detect 35 GC/Chlamydia 05/25/2017 [facility] Chlamydia Negative Negative Amplified Rna [phone] trachomatis Rna Neisseria gonorrhoeae (GC) Rna Negative Negative Laboratory test 05/25/2017 [facility] Urine Culture And SEE RESULT 36 finding [phone] Sensitivities BELOW CBC Auto Diff 05/25/2017 [facility] White Blood Count 9.2 10^3/uL N 3.5-10 [phone] Red Blood Count 4.56 10^6/uL N 4.0-5.4 Hemoglobin 13.1 g/dL N 12.0-16.0 Hematocrit 39 % N 35-47 Mean Corpuscular Volume 85 fL N 80-97 Mean Corpuscular Hemoglobin 29 pg N 27-31 Mean Corpuscular HGB Conc 34 g/dL N 31-36 Red Cell Distribution Width 13 % N 10.5-15 Platelet Count 307 10^3/uL N 150-450 Mean Platelet Volume 8 um3 N 7.4-10.4 Abs Neutrophils 5.0 10^3/uL N 1.5-7.7 Abs Lymphocytes 2.8 10^3/uL N 1.0-4.8 Abs Monocytes 0.7 10^3/uL N 0-0.8 Abs Eosinophils 0.6 10^3/uL N 0-0.6 Abs Basophils 0.1 10^3/uL N 0-0.2 Abs Nucleated RBC 0 10^3/uL Granulocyte % 54.3 % N 38-83 Lymphocyte % 30.7 % N 25-47 Monocyte % 7.5 % N 1-9 Eosinophil % 6.5 % High 0-6 Basophil % 1.0 % N 0-2 Nucleated Red Blood Cells % 0 Comp Metabolic Panel 05/25/2017 [facility] Sodium 139 mmol/L N 133- 145 [phone] Potassium 3.9 mmol/L N 3.5-5.0 Chloride 104 mmol/L N 101-111 Co2 Carbon Dioxide 30 mmol/L N 22-32 Anion Gap 5 mmol/L N 2-11 Glucose 85 mg/dL N 70-100 Blood Urea Nitrogen 22 mg/dL N 6-24 Creatinine 0.76 mg/dL N 0.51-0.95 BUN/Creatinine Ratio 28.9 High 8-20 Calcium 9.7 mg/dL N 8.6-10.3 Total Protein 7.6 g/dL N 6.4-8.9 Albumin 4.9 g/dL N 3.2-5.2 Globulin 2.7 g/dL N 2-4 Albumin/Globulin Ratio 1.8 N 1-3 Total Bilirubin 0.30 mg/dL N 0.2-1.0 Alkaline Phosphatase 81 U/L N 34-104 Alt 130 U/L High 7-52 Ast 82 U/L High 13-39 Egfr Non- 92.7 >60 Egfr 119.3 >60 37 Laboratory 05/25/2017 [facility] Hepatitis C High Abnormal Nonreactive 38 test finding [phone] Antibody Reactive Urinalysis 05/11/2017 [facility] Urine Color Yellow Profile [phone] Urine Appearance Cloudy Urine Specific [place] 1.010 N 1.010-1.030 Urine pH 7.0 N 5-9 Urine Urobilinogen Negative Negative Urine Ketones Negative Negative Urine Protein Negative Negative Urine Leukocytes 3+ Abnormal Negative Urine Blood 2+ Abnormal Negative Urine Nitrite Negative Negative Urine Bilirubin Negative Negative Urine Glucose Negative Negative Urine White Blood Cell 3+(>20/hpf) Abnormal Absent Urine Red Blood Cell 1+(3-5/hpf) Abnormal Absent Urine Bacteria 1+ Abnormal Absent Urine Squamous Epithelial Cell Present Abnormal Absent Urine Yeast Present Abnormal Absent GC/Chlamydia 05/11/2017 [facility] Chlamydia Negative Negative Amplified Rna [phone] trachomatis Rna Neisseria gonorrhoeae (GC) Rna Negative Negative Laboratory test 05/11/2017 [facility] Urine Culture And SEE RESULT 39 finding [phone] Sensitivities BELOW CBC Auto Diff 05/11/2017 [facility] White Blood Count 11.0 High 3.5- 3 [phone] 10^3/uL 0.8 Red Blood Count 4.39 10^6/uL N 4.0-5.4 Hemoglobin 12.4 g/dL N 12.0-16.0 Hematocrit 38 % N 35-47 Mean Corpuscular Volume 85 fL N 80-97 Mean Corpuscular Hemoglobin 28 pg N 27-31 Mean Corpuscular HGB Conc 33 g/dL N 31-36 Red Cell Distribution Width 14 % N 10.5-15 Platelet Count 333 10^3/uL N 150-450 Mean Platelet Volume 8 um3 N 7.4-10.4 Abs Neutrophils 6.3 10^3/uL N 1.5-7.7 Abs Lymphocytes 3.5 10^3/uL N 1.0-4.8 Abs Monocytes 0.6 10^3/uL N 0-0.8 Abs Eosinophils 0.6 10^3/uL N 0-0.6 Abs Basophils 0 10^3/uL N 0-0.2 Abs Nucleated RBC 0 10^3/uL Granulocyte % 56.8 % N 38-83 Lymphocyte % 31.7 % N 25-47 Monocyte % 5.2 % N 1-9 Eosinophil % 5.9 % N 0-6 Basophil % 0.4 % N 0-2 Nucleated Red Blood Cells % 0 Comp Metabolic Panel 05/11/2017 [facility] Sodium 135 mmol/L N 133- 145 [phone] Potassium 3.8 mmol/L N 3.5-5.0 Chloride 101 mmol/L N 101-111 Co2 Carbon Dioxide 28 mmol/L N 22-32 Anion Gap 6 mmol/L N 2-11 Glucose 80 mg/dL N 70-100 Blood Urea Nitrogen 14 mg/dL N 6-24 Creatinine 0.64 mg/dL N 0.51-0.95 BUN/Creatinine Ratio 21.9 High 8-20 Calcium 9.3 mg/dL N 8.6-10.3 Total Protein 7.0 g/dL N 6.4-8.9 Albumin 4.4 g/dL N 3.2-5.2 Globulin 2.6 g/dL N 2-4 Albumin/Globulin Ratio 1.7 N 1-3 Total Bilirubin 0.30 mg/dL N 0.2-1.0 Alkaline Phosphatase 75 U/L N 34-104 Alt 81 U/L High 7-52 Ast 50 U/L High 13-39 Egfr Non- 113.1 >60 Egfr 145.4 >60 40 Laboratory test finding 05/11/2017 [facility] Lipase 24 U/L N 11.0- 82.0 [phone] C Reactive Protein < 1.00 mg/L N < 5.00 41 HCG < 0.60 mIU/mL 42 Blood Culture SEE RESULT BELOW 43 Rapid Influenza A 04/19/2017 [facility] Influenza A NEGATIVE Negative 44 & B Molecular [phone] Molecular Influenza B Molecular NEGATIVE Negative Laboratory test 04/19/2017 [facility] Rapid Strep Negative Negative 45 finding [phone] Molecular HIV 1/2 AB 04/08/2017 [facility] HIV 1 2 Nonreactive Nonreactive 46 Evaluation [phone] Antibody Laboratory test 04/08/2017 [facility] Hepatitis C 939678 IU/mL Undetected 47 finding [phone] Rna Quant Hepatitis C Genotype 1a Undetected 48 Comp Metabolic Panel 04/05/2017 [facility] Sodium 138 mmol/L N 133-145 [address] [place] [address] [phone] Potassium 4.2 mmol/L N 3.5-5.0 Chloride 106 mmol/L N 101-111 Co2 Carbon Dioxide 27 mmol/L N 22-32 Anion Gap 5 mmol/L N 2-11 Glucose 107 mg/dL High 70-100 Blood Urea Nitrogen 18 mg/dL N 6-24 Creatinine 0.71 mg/dL N 0.51-0.95 BUN/Creatinine Ratio 25.4 High 8-20 Calcium 9.5 mg/dL N 8.6-10.3 Total Protein 7.0 g/dL N 6.4-8.9 Albumin 4.6 g/dL N 3.2-5.2 Globulin 2.4 g/dL N 2-4 Albumin/Globulin Ratio 1.9 N 1-3 Total Bilirubin 0.40 mg/dL N 0.2-1.0 Alkaline Phosphatase 115 U/L High 34-104 Alt 293 U/L High 7-52 Ast 159 U/L High 13-39 Egfr Non- 100.3 >60 Egfr 129.0 >60 49 Hepatitis 04/05/2017 [facility] Hepatitis B Nonreactive Nonreactive Acute Panel [address] [place] [address] Antigen [phone] Hepatitis B Core IgM Nonreactive Nonreactive Hepatitis A AB IgM Nonreactive Nonreactive Hepatitis C Antibody High Reactive Abnormal Nonreactive 50 CBC Auto Diff 04/04/2017 [facility] White Blood Count 8.3 10^3/uL N 3.5-10.8 [phone] Red Blood Count 4.41 10^6/uL N 4.0-5.4 Hemoglobin 12.6 g/dL N 12.0-16.0 Hematocrit 37 % N 35-47 Mean Corpuscular Volume 84 fL N 80-97 Mean Corpuscular Hemoglobin 29 pg N 27-31 Mean Corpuscular HGB Conc 34 g/dL N 31-36 Red Cell Distribution Width 14 % N 10.5-15 Platelet Count 279 10^3/uL N 150-450 Mean Platelet Volume 8 um3 N 7.4-10.4 Abs Neutrophils 4.9 10^3/uL N 1.5-7.7 Abs Lymphocytes 2.5 10^3/uL N 1.0-4.8 Abs Monocytes 0.6 10^3/uL N 0-0.8 Abs Eosinophils 0.3 10^3/uL N 0-0.6 Abs Basophils 0 10^3/uL N 0-0.2 Abs Nucleated RBC 0.01 10^3/uL Granulocyte % 58.7 % N 38-83 Lymphocyte % 29.6 % N 25-47 Monocyte % 7.1 % N 1-9 Eosinophil % 4.1 % N 0-6 Basophil % 0.5 % N 0-2 Nucleated Red Blood Cells % 0.1 Laboratory test 04/04/2017 [facility] Hemoglobin A1c 5.1 % N 4.0-5.6 51 finding [phone] (Glyco HGB) Comp Metabolic 04/04/2017 [facility] Sodium 133 mmol/L N 133-145 Panel [phone] Potassium 4.4 mmol/L N 3.5-5.0 Chloride 102 mmol/L N 101-111 Co2 Carbon Dioxide 27 mmol/L N 22-32 Anion Gap 4 mmol/L N 2-11 Glucose 102 mg/dL High 70-100 Blood Urea Nitrogen 15 mg/dL N 6-24 Creatinine 0.63 mg/dL N 0.51-0.95 BUN/Creatinine Ratio 23.8 High 8-20 Calcium 9.2 mg/dL N 8.6-10.3 Total Protein 6.8 g/dL N 6.4-8.9 Albumin 4.4 g/dL N 3.2-5.2 Globulin 2.4 g/dL N 2-4 Albumin/Globulin Ratio 1.8 N 1-3 Total Bilirubin 0.30 mg/dL N 0.2-1.0 Alkaline Phosphatase 92 U/L N 34-104 Alt 287 U/L High 7-52 Ast 176 U/L High 13-39 Egfr Non- 115.1 >60 Egfr 148.1 >60 52 Laboratory test 04/04/2017 [facility] Creatine Kinase(CK) 105 U/L N 10-223 finding [phone] TSH (Thyroid Stim Horm) 0.88 mcIU/mL N 0.34-5.60 Vitamin B12 984 pg/mL High [phone] 53 Ssa/SSB Abs Igg 04/04/2017 [facility] SS-A/Ro Antibody <0.2 U 54 [phone] SS-B/La Antibody <0.2 U 55 Connective Tissue Panel 04/04/2017 [facility] Anti-Nuclear Antibody 0.8 U 56 [phone] Cyclic Citrullinated Peptide <15.6 U 57 Interpretation See Comment 58 Laboratory test 04/04/2017 [facility] Lyme Disease Negative Negative 59 finding [phone] Serology CBC Auto Diff 01/11/2017 [facility] White Blood 9.6 10^3/uL N 3.5- 10.8 [phone] Count Red Blood Count 4.41 10^6/uL N 4.0-5.4 Hemoglobin 12.5 g/dL N 12.0-16.0 Hematocrit 38 % N 35-47 Mean Corpuscular Volume 85 fL N 80-97 Mean Corpuscular Hemoglobin 28 pg N 27-31 Mean Corpuscular HGB Conc 33 g/dL N 31-36 Red Cell Distribution Width 13 % N 10.5-15 Platelet Count 284 10^3/uL N 150-450 Mean Platelet Volume 8 um3 N 7.4-10.4 Abs Neutrophils 4.8 10^3/uL N 1.5-7.7 Abs Lymphocytes 3.4 10^3/uL N 1.0-4.8 Abs Monocytes 0.7 10^3/uL N 0-0.8 Abs Eosinophils 0.6 10^3/uL N 0-0.6 Abs Basophils 0.1 10^3/uL N 0-0.2 Abs Nucleated RBC 0.01 10^3/uL N Granulocyte % 49.6 % N 38-83 Lymphocyte % 35.5 % N 25-47 Monocyte % 7.8 % N 1-9 Eosinophil % 6.4 % High 0-6 Basophil % 0.7 % N 0-2 Nucleated Red Blood Cells % 0.1 N Comp Metabolic Panel 01/11/2017 [facility] Sodium 137 mmol/L N 133- 145 [phone] Potassium 4.2 mmol/L N 3.5-5.0 Chloride 105 mmol/L N 101-111 Co2 Carbon Dioxide 27 mmol/L N 22-32 Anion Gap 5 mmol/L N 2-11 Glucose 90 mg/dL N 70-100 Blood Urea Nitrogen 20 mg/dL N 6-24 Creatinine 0.87 mg/dL N 0.51-0.95 BUN/Creatinine Ratio 23.0 High 8-20 Calcium 9.3 mg/dL N 8.6-10.3 Total Protein 7.0 g/dL N 6.4-8.9 Albumin 4.1 g/dL N 3.2-5.2 Globulin 2.9 g/dL N 2-4 Albumin/Globulin Ratio 1.4 N 1-3 Total Bilirubin 0.30 mg/dL N 0.2-1.0 Alkaline Phosphatase 63 U/L N 34-104 Alt 25 U/L N 7-52 Ast 22 U/L N 13-39 Egfr Non- 80.0 N >60 Egfr 102.9 N >60 60 Laboratory test finding 01/11/2017 [facility] Acetaminophen < 15 g/ mL N 61 [phone] Alcohol < 10 mg/dL N <10 Salicylate < 2.50 mg/dL N <30 TSH (Thyroid Stim Horm) 1.01 mcIU/mL N 0.34-5.60 Urine Drug 01/11/2017 [facility] Amphetamine Ur None Detected N None Detect SCR ED & [phone] Screen Pain Clinic Barbiturates Urine Screen None Detected N None Detect Benzodiazepine Urine Screen None Detected N None Detect Urine Cannabinoids Screen None Detected N None Detect Urine Cocaine Screen Presumptive Posi <SEE NOTE> Abnormal None Detect 62 Urine Opiates Screen Presumptive Posi <SEE NOTE> Abnormal None Detect 63 Urine Phencyclidine Screen None Detected N None Detect 64 Urinalysis Profile 01/11/2017 [facility] Urine Color Alexsandra N [phone] Urine Appearance Cloudy N Urine Specific [place] 1.026 N 1.010-1.030 Urine pH 7.0 N 5-9 Urine Urobilinogen Negative N Negative Urine Ketones Trace Abnormal Negative Urine Protein 1+(30 mg/dL) Abnormal Negative Urine Leukocytes 2+ Abnormal Negative Urine Blood Negative N Negative Urine Nitrite Negative N Negative Urine Bilirubin Negative N Negative Urine Glucose Negative N Negative Urine White Blood Cell 2+(11-20/hpf) Abnormal Absent Urine Red Blood Cell 1+(3-5/hpf) Abnormal Absent Urine Bacteria Absent N Absent Urine Squamous Epithelial Cell Present Abnormal Absent Urine Amorphous Crystals Present Abnormal Absent Laboratory test 01/11/2017 [facility] Urine Culture And SEE RESULT 65 finding [phone] Sensitivities BELOW Urinalysis 11/20/2016 [facility] Urine Color Colorless N Profile [phone] Urine Appearance Clear N Urine Specific [place] 1.002 Low 1.010-1.030 Urine pH 6.0 N 5-9 Urine Urobilinogen Negative N Negative Urine Ketones Negative N Negative Urine Protein Negative N Negative Urine Leukocytes Negative N Negative Urine Blood 1+ Abnormal Negative Urine Nitrite Negative N Negative Urine Bilirubin Negative N Negative Urine Glucose Negative N Negative Urine White Blood Cell Trace(0-5/hpf) N Absent Urine Red Blood Cell Trace(0-2/hpf) N Absent Urine Bacteria Absent N Absent Urine Drug 11/20/2016 [facility] Amphetamine Ur None Detected N None Detect SCR ED & [phone] Screen Pain Clinic Barbiturates Urine Screen None Detected N None Detect Benzodiazepine Urine Screen None Detected N None Detect Urine Cannabinoids Screen None Detected N None Detect Urine Cocaine Screen Presumptive Posi <SEE NOTE> Abnormal None Detect 66 Urine Opiates Screen None Detected N None Detect Urine Phencyclidine Screen None Detected N None Detect 67 CBC Auto Diff 11/20/2016 [facility] White Blood Count 10.8 10^3/uL N 3.5-10.8 [phone] Red Blood Count 4.62 10^6/uL N 4.0-5.4 Hemoglobin 13.5 g/dL N 12.0-16.0 Hematocrit 40 % N 35-47 Mean Corpuscular Volume 87 fL N 80-97 Mean Corpuscular Hemoglobin 29 pg N 27-31 Mean Corpuscular HGB Conc 34 g/dL N 31-36 Red Cell Distribution Width 12 % N 10.5-15 Platelet Count 227 10^3/uL N 150-450 Mean Platelet Volume 8 um3 N 7.4-10.4 Abs Neutrophils 5.4 10^3/uL N 1.5-7.7 Abs Lymphocytes 3.7 10^3/uL N 1.0-4.8 Abs Monocytes 0.6 10^3/uL N 0-0.8 Abs Eosinophils 0.9 10^3/uL High 0-0.6 Abs Basophils 0.1 10^3/uL N 0-0.2 Abs Nucleated RBC 0.01 10^3/uL N Granulocyte % 50.0 % N 38-83 Lymphocyte % 34.6 % N 25-47 Monocyte % 5.9 % N 1-9 Eosinophil % 8.7 % High 0-6 Basophil % 0.8 % N 0-2 Nucleated Red Blood Cells % 0.1 N Comp Metabolic Panel 11/20/2016 [facility] Sodium 138 mmol/L N 133- 145 [phone] Potassium 4.0 mmol/L N 3.5-5.0 Chloride 106 mmol/L N 101-111 Co2 Carbon Dioxide 24 mmol/L N 22-32 Anion Gap 8 mmol/L N 2-11 Glucose 101 mg/dL High 70-100 Blood Urea Nitrogen 8 mg/dL N 6-24 Creatinine 0.63 mg/dL N 0.51-0.95 BUN/Creatinine Ratio 12.7 N 8-20 Calcium 9.2 mg/dL N 8.6-10.3 Total Protein 7.3 g/dL N 6.4-8.9 Albumin 4.5 g/dL N 3.2-5.2 Globulin 2.8 g/dL N 2-4 Albumin/Globulin Ratio 1.6 N 1-3 Total Bilirubin 0.20 mg/dL N 0.2-1.0 Alkaline Phosphatase 71 U/L N 34-104 Alt 11 U/L N 7-52 Ast 16 U/L N 13-39 Egfr Non- 116.1 N >60 Egfr 149.3 N >60 68 Laboratory test finding 11/20/2016 [facility] Acetaminophen < 15 g/ mL N 69 [phone] Alcohol 77 mg/dL High <10 Salicylate < 2.50 mg/dL N <30 TSH (Thyroid Stim Horm) 0.88 mcIU/mL N 0.34-5.60 Urine Drug Screen Inhouse 11/02/2016 In House Ua Cocaine - Ua Opiates - Ua Amphetamines - Urine Methanphetamines - Urine Benzodiazepines QN [place] - Urine Oxycodone QL + Urine Drug Screen Inhouse 10/07/2016 In House Ua Cocaine - Ua Opiates - Ua Amphetamines - Urine Methanphetamines - Urine Benzodiazepines QN [place] - Urine Oxycodone QL + Urine Drug Screen Inhouse 09/09/2016 In House Ua Cocaine - Ua Opiates + Ua Amphetamines - Urine Methanphetamines - Urine Benzodiazepines QN [place] - Urine Oxycodone QL + Laboratory test 09/09/2016 [facility] Culture Genital & SEE RESULT 70 finding [phone] Sensitivity BELOW Urine Drug Screen 08/03/2016 In House Ua Cocaine _ Inhouse Ua Opiates + Ua Amphetamines _ Urine Methanphetamines _ Urine Benzodiazepines QN [place] _ Urine Oxycodone QL + Laboratory test finding 07/29/2016 In House Culture Throat Rapid positive Screen Urine Drug Screen Inhouse 07/13/2016 In House Ua Cocaine + Ua Opiates + Ua Amphetamines - Urine Methanphetamines - Urine Benzodiazepines QN [place] - Urine Oxycodone QL + Ua Inhouse 06/17/2016 In House Ua Glucose - 71 Ua Bilirubin - Ua Ketones - Ua Specific [place] 1.030 Ua Blood 3+ Ua PH 5.0 Ua Protein - Ua Urobilinogen - Ua Nitrite - Ua Leukocytes - Laboratory 04/19/2016 [facility] Gardnerella/Yeast: SEE RESULT 72 test finding [phone] Vaginal Dna BELOW GC/Chlamydia 04/19/2016 [facility] Chlamydia trachomatis Negative N Negative Amplified Rna [phone] Rna Neisseria gonorrhoeae (GC) Rna Negative N Negative Laboratory test 04/19/2016 [facility] Trichomonas Negative N Negative 73 finding [phone] Vaginalis Rna Urinalysis 04/19/2016 [facility] Urine Color Alexsandra N Profile [phone] Urine Appearance Cloudy N Urine Specific [place] 1.030 N 1.010-1.030 Urine pH 5.0 N 5-9 Urine Urobilinogen Negative N Negative Urine Ketones Trace Abnormal Negative Urine Protein Negative N Negative Urine Leukocytes Trace Abnormal Negative Urine Blood 1+ Abnormal Negative Urine Nitrite Negative N Negative Urine Bilirubin Negative N Negative Urine Glucose Negative N Negative Urine White Blood Cell Trace(0-5/hpf) N Absent Urine Red Blood Cell 2+(6-10/hpf) Abnormal Absent Urine Bacteria Absent N Absent Urine Squamous Epithelial Cell Present Abnormal Absent CBC Auto Diff 04/19/2016 [facility] White Blood 12.6 10^3/uL High 3.5 -10.8 [phone] Count Red Blood Count 4.62 10^6/uL N 4.0-5.4 Hemoglobin 13.4 g/dL N 12.0-16.0 Hematocrit 40 % N 35-47 Mean Corpuscular Volume 87 fL N 80-97 Mean Corpuscular Hemoglobin 29 pg N 27-31 Mean Corpuscular HGB Conc 33 g/dL N 31-36 Red Cell Distribution Width 13 % N 10.5-15 Platelet Count 252 10^3/uL N 150-450 Mean Platelet Volume 8 um3 N 7.4-10.4 Abs Neutrophils 7.7 10^3/uL N 1.5-7.7 Abs Lymphocytes 3.5 10^3/uL N 1.0-4.8 Abs Monocytes 0.9 10^3/uL High 0-0.8 Abs Eosinophils 0.4 10^3/uL N 0-0.6 Abs Basophils 0.1 10^3/uL N 0-0.2 Abs Nucleated RBC 0 10^3/uL N Granulocyte % 61.1 % N 38-83 Lymphocyte % 27.4 % N 25-47 Monocyte % 7.5 % N 1-9 Eosinophil % 3.4 % N 0-6 Basophil % 0.6 % N 0-2 Nucleated Red Blood Cells % 0 N Comp Metabolic Panel 04/19/2016 [facility] Sodium 134 mmol/L N 133- 145 [phone] Potassium 3.5 mmol/L N 3.5-5.0 Chloride 105 mmol/L N 101-111 Co2 Carbon Dioxide 26 mmol/L N 22-32 Anion Gap 3 mmol/L N 2-11 Glucose 95 mg/dL N 70-100 Blood Urea Nitrogen 13 mg/dL N 6-24 Creatinine 0.72 mg/dL N 0.51-0.95 BUN/Creatinine Ratio 18.1 N 8-20 Calcium 9.4 mg/dL N 8.6-10.3 Total Protein 7.2 g/dL N 6.4-8.9 Albumin 4.6 g/dL N 3.2-5.2 Globulin 2.6 g/dL N 2-4 Albumin/Globulin Ratio 1.8 N 1-3 Total Bilirubin 0.20 mg/dL N 0.2-1.0 Alkaline Phosphatase 60 U/L N 34-104 Alt 39 U/L N 7-52 Ast 23 U/L N 13-39 Egfr Non- 99.5 N >60 Egfr 128.0 N >60 74 Laboratory test finding 04/19/2016 [facility] HCG < 0.60 mIU/ mL N 75 [phone] Urine Culture And Sensitivities SEE RESULT BELOW 76 Laboratory test 03/12/2016 [facility] Rapid Strep Negative N Negative 77 finding [phone] Molecular Laboratory test 12/23/2015 [facility] Human Papilloma Negative N Negative 78 finding [phone] Virus Rna GC/Chlamydia 12/23/2015 [facility] Chlamydia Negative N Negative Amplified Rna [phone] trachomatis Rna Neisseria gonorrhoeae (GC) Rna Negative N Negative Laboratory test 12/23/2015 [facility] Cytology SEE RESULT 79 finding [phone] BELOW Laboratory test 12/23/2015 [facility] Culture Genital & SEE RESULT 80 finding [phone] Sensitivity BELOW Laboratory test 10/20/2015 [facility] Lactic Acid 0.6 mmol/L N 0.5- 2. 81 finding [phone] CBC Auto Diff 10/20/2015 [facility] White Blood Count 15.8 10^3/uL High 3.5-10 [phone] .8 Red Blood Count 4.85 10^6/uL N 4.0-5.4 Hemoglobin 14.5 g/dL N 12.0-16.0 Hematocrit 44 % N 35-47 Mean Corpuscular Volume 90 fL N 80-97 Mean Corpuscular Hemoglobin 30 pg N 27-31 Mean Corpuscular HGB Conc 33 g/dL N 31-36 Red Cell Distribution Width 13 % N 10.5-15 Platelet Count 233 10^3/uL N 150-450 Mean Platelet Volume 9 um3 N 7.4-10.4 Abs Neutrophils 12.3 10^3/uL High 1.5-7.7 Abs Lymphocytes 2.3 10^3/uL N 1.0-4.8 Abs Monocytes 0.9 10^3/uL High 0-0.8 Abs Eosinophils 0.2 10^3/uL N 0-0.6 Abs Basophils 0.1 10^3/uL N 0-0.2 Abs Nucleated RBC 0 10^3/uL N Granulocyte % 77.7 % N 38-83 Lymphocyte % 14.7 % Low 25-47 Monocyte % 5.7 % N 1-9 Eosinophil % 1.3 % N 0-6 Basophil % 0.6 % N 0-2 Nucleated Red Blood Cells % 0 N 1 Result in log IU/mL is Undetected. ADDITIONAL INFORMATION The quantification range of this assay is 15 to 100,000,000 IU/mL (1.18 log to 8.00 log IU/mL). Testing was performed using the pawel HCV test ([employer] with the pawel 6800 System. Test Performed by: [facility] [address], [place] [address] 2 Because ethnic data is not always [...] 5 Kidney failure <15 (or dialysis) 3 Pastoral Assistant: [id number] 4 Pastoral Assistant: [id number] SEE RESULT BELOW Name: STPEHANIE PRICE : [address]: Viktor Delgado MD Acct: [id number] Unit: [id number] AGE: 27 Location: [facility] Re12/23/17 SEX: F Status: DEP ER SPEC: [id number] KIKI: 12/23/[address] [facility] [address]: Viktor Delgado MD REQ: [id number] RECD: 12/23/17 STATUS: WALTER LEDEZMA DR: Cindy Lee RPA-C _ SOURCE: URINE SPDESC: ORDERED: Urine Culture COMMENTS: [id number] Procedure Result Reported Site Urine Culture Final 12/25/17- 940 ML Organism 1 ESCHERICHIA COLI [place] Count >100,000 (Many) CFU/ML 1. ESCHERICHIA COLI [...] . END OF REPORT DEPARTMENT OF PATHOLOGY, [address] [place] [address] Kevin Rebolledo M.D. Director [facility] # [id number] 7 Because ethnic data is not always readily [...] 15-29 5 Kidney failure <15 (or dialysis) 8 <5.0 Negative 5.0 - 25.0 Indeterminate (Repeat testing recommended after 72 hours) >25.0 Positive Perimenopausal women can display HCG levels of up to 20 mIU/mL 9 Please note: The following may produce a false positive D Dimer test: - Rheumatoid factor greater than 60 IU/ml - Plasma hemoglobin greater than 0.05 gm/dl - Bilirubin greater than 50 mg/dl - Lipids greater than 1000 mg/dl - FDP greater than 20 ug/ml 10 No interferon-gamma response to M. tuberculosis antigens [...] LUKE et. al. Clin. Infect. Dis. 2017;64(2):111-115]. 11 Test Performed by: [facility] [address] [place] [address] 12 SEE RESULT BELOW Name: STEPHANIE PRICE : [address]: Dimitry Ruiz MD Acct: [id number] Unit: [id number] AGE: 27 Location: ED Re09/18/17 SEX: F Status: DEP ER SPEC: [id number] KIKI: 09/18/[address]: Jenn WALLS REQ: [id number] RECD: 09/18/17 STATUS: WALTER LEDEZMA DR: Cindy Lee RPA-C Dimitry Ruiz MD _ SOURCE: URINE SPDESC: ORDERED: Urine Culture Procedure Result Reported Site Urine Culture Final 09/19/17- 733 ML No Growth (<1,000 CFU/mL) * ML - Main Lab . END OF REPORT DEPARTMENT OF PATHOLOGY, [address] [place] [address] Kevin Rebolledo M.D. Director [facility] # [id number] 13 Because ethnic data is not always readily [...] 15-29 5 Kidney failure <15 (or dialysis) 14 Acute inflammation: >10.00 15 Would you like to order Trichomonas Vaginalis RNA testing? Y 16 SEE RESULT BELOW Name: STEPHANIE PRICE : [address]: Dimitry Ruiz MD Acct: [id number] Unit: [id number] AGE: 27 Location: ED Re09/18/17 SEX: F Status: DEP ER SPEC: [id number] KIKI: 09/18/[address]: Jenn WALLS REQ: [id number] RECD: 09/18/17 STATUS: COMP OTHR DR: Cindy Lee RPA-C Dimitry Ruiz MD [...] or failure. Trichomonas: Vaginal DNA Probe Final 09/19/17854 ML Organism 1 Negative Trichomonas CONTINUED ON NEXT PAGE DEPARTMENT OF PATHOLOGY, [address] [place] [address] Kevin Rebolledo M.D. Director [facility] # [id number] Patient: STEPHANIE PRICE [id number] (Continued) Specimen: [id number] Collected: 09/18/17 Received: 09/18/17 (Continued) Procedure Result Reported Site Trichomonas: Vaginal DNA Probe Final (continued) 09/19/17854 The presence or absence of T. vaginalis cannot be used as a test for therapeutic success or failure. * ML - Main Lab . END OF REPORT DEPARTMENT OF PATHOLOGY, [address] [place] [address] Kevin Rebolledo M.D. Director [facility] # [id number] 17 Result in log IU/mL is 2.79. ADDITIONAL INFORMATION The quantification range of this assay is 15 to 100,000,000 IU/mL (1.18 log to 8.00 log IU/mL). Testing was performed using the pawel HCV test ([employer] with the pawel 6800 System. Test Performed by: [facility] - [address] [address] 18 SEE RESULT BELOW Name: STEPHANIE PRICE : [address]: Jose Hale MD Acct: [id number] Unit: [id number] AGE: 27 Location: ED Re08/13/17 SEX: F Status: DEP ER SPEC: [id number] KIKI: 08/13/[address]: Calvin Hale MD REQ: [id number] RECD: 08/13/17 STATUS: COMP DARIEN DR: Cindy Lee RPA-C _ SOURCE: VAGINAL SPDESC: ORDERED: Billy,Yeast DNA [...] . END OF REPORT DEPARTMENT OF PATHOLOGY, [address] [place] [address] Kevin Rebolledo M.D. Director [facility] # [id number] 19 GC/Chlamydia Source?: Endocervical Trichomonas Source: Endocervical 20 <5.0 Negative 5.0 - 25.0 Indeterminate (Repeat testing recommended after 72 hours) >25.0 Positive Perimenopausal women can display HCG levels of up to 20 mIU/mL 21 Verbal to FINN MANSFIELD by [email or web address] at 0837 on 08/16/17. Results read back accurately. Submitted to [facility] via ECLRS system by [email or web address] at 1411 on 08/16/17. 22 Verbal to FINN MANSFIELD by [id number] at 0837 on 08/16/17. Results read back accurately. Submitted to [facility] via ECLRS system by [id number] at 1411 on 08/16/17. 23 High reactive sample are considered positive for Hepatitis C 24 Presumptive Positive Presumptive positive results are [...] be used for medical purposes only. 28 Because ethnic data is not always [...] 5 Kidney failure <15 (or dialysis) 29 SEE RESULT BELOW Name: MATEO PRICEKVNG Wood : [address]: William Barker MD Acct: [id number] Unit: [id number] AGE: 27 Location: [facility] Re06/21/17 SEX: F Status: DEP REF SPEC: [id number] KIKI: 06/21/17-[address] [facility] [address]: William Barker MD REQ: [id number] RECD: 06/21/17 STATUS: WALTER LEDEZMA DR[facility] _ SOURCE: GAS ANTRUM SPDESC: ORDERED: Clotest Procedure Result Reported Site Clotest Final 06/22/17- 40 ML Clotest Negative * ML - Main Lab . END OF REPORT DEPARTMENT OF PATHOLOGY, [address] [place] [address] Kevin Rebolledo M.D. Director [facility] # [id number] 31 SEE RESULT BELOW Name: STEPHANIE PRICE : [address]: William Barker MD Acct: [id number] Unit: [id number] AGE: 27 Location: ENDOC Re06/21/17 SEX: F Status: DEP REF SPEC: [id number] KIKI: 06/21/17-[address]: William Barker MD REQ: [id number] RECD: 06/21/171805 STATUS: DESHAUN LEDEZMA DR: Cindy Lee [facility] _ ORDERED: LEVEL 4 COMMENTS: [id number] FINAL DIAGNOSIS Duodenum, biopsy: -- Benign small [...] 1147 END OF REPORT DEPARTMENT OF PATHOLOGY, [address] [place] [address] Kevin Rebolledo M.D. Director [facility] # [id number] 32 SEE RESULT BELOW Name: STEPHANIE PRICE : [address]: Cindy ARAUZ Acct: [id number] Unit: [id number] AGE: 27 Location: [facility] Re05/26/17 SEX: F Status: REG REF SPEC: [id number] KIKI: 05/26/17-[address]: Cindy ARAUZ REQ: [id number] RECD: 05/26/17 STATUS: COMP _ SOURCE: VAGINAL SPDESC: ORDERED: Genital Culture COMMENTS: [id number] Procedure Result Reported Site Genital Culture Final [...] performed at Main Lab DEPARTMENT OF PATHOLOGY, [address] [place] [address] Kevin Rebolledo M.D. Director [facility] # [id number] 33 Presumptive Positive Presumptive positive results are unconfirmed. 34 Presumptive Positive Presumptive positive results are unconfirmed. 35 The urine specimen was tested at the listed cutoffs: Drug class test level (ng/mL) Amphetamines 500 Barbiturates 200 Benzodiazepine metabolites 200 Cocaine metabolites 150 Cannabinoids 50 Opiates 300 Pcp 25 Specimen was received without chain of custody. Results should be used for medical purposes only. 36 SEE RESULT BELOW Name: STEPHANIE PRICE : [address]: Naman Mo MD Acct: [id number] Unit: [id number] AGE: 27 Location: ED Re05/25/17 SEX: F Status: DEP ER SPEC: [id number] KIKI: 05/25/[address]: Naman Mo MD REQ: [id number] RECD: 05/25/17 STATUS: WALTER LEDEZMA DR[facility] _ SOURCE: URINE SPDESC: ORDERED: Urine Culture Procedure Result Reported Site Urine Culture Final 05/27/17- 899 ML No growth of clinically significant organisms * ML - MAIN LAB ([facility]) . END OF REPORT * ML=Testing performed at Main Lab DEPARTMENT OF PATHOLOGY, [address] [place] [address] Kevin Rebolledo M.D. Director [facility] # [id number] 37 Because ethnic data is not always [...] 5 Kidney failure <15 (or dialysis) 38 High reactive sample are considered positive for Hepatitis C 39 SEE RESULT BELOW Name: STEPHANIE PRICE : [address]: Garry Batista MD Acct: [id number] Unit: [id number] AGE: 27 Location: ED Re05/11/17 SEX: F Status: DEP ER SPEC: [id number] KIKI: 05/11/[address]: Garry Batista MD REQ: [id number] RECD: 05/11/17 STATUS: WALTER LEDEZMA DR: [facility] Cindy Lee RPA-C _ SOURCE: URINE SPDESC: ORDERED: Urine Culture Procedure Result Reported Site Urine Culture Final 05/12/17- 1651 ML No Growth (<1,000 CFU/mL) * ML - MAIN LAB ([facility]) . END OF REPORT * ML=Testing performed at Main Lab DEPARTMENT OF PATHOLOGY, [address] [place] [address] Kevin Rebolledo M.D. Director [facility] # [id number] 40 Because ethnic data is not always readily [...] 15-29 5 Kidney failure <15 (or dialysis) 41 Acute inflammation: >10.00 42 <5.0 Negative 5.0 - 25.0 Indeterminate (Repeat testing recommended after 72 hours) >25.0 Positive Perimenopausal women can display HCG levels of up to 20 mIU/mL 43 SEE RESULT BELOW Name: STEPHANIE PRICE : [address]: Garry Batista MD Acct: [id number] Unit: [id number] AGE: 27 Location: ED Re05/11/17 SEX: F Status: DEP ER SPEC: [id number] KIKI: 05/11/17 DR: Garry Batista MD REQ: [id number] RECD: 05/11/17 STATUS: WALTER LEDEZMA DR: [facility] Cindy Lee RPA-C _ SOURCE: BLOOD,VENO SPDESC: ORDERED: Blood Cult Procedure Result Reported Site Aerobic Culture Bottle Final 05/16/172129 ML No Growth Day 5 Anaerobic Culture Bottle Final 05/16/172129 ML No Growth Day 5 * ML - MAIN LAB ([facility]) . END OF REPORT * ML=Testing performed at Main Lab DEPARTMENT OF PATHOLOGY, [address] [place] [address] Kevin Rebolledo M.D. Director [facility] # [id number] 44 Pastoral Assistant: [id number] 45 Pastoral Assistant: [id number] 46 It is recognized that currently available assays [...] 95% confidence interval of 99.78 to 99.96%. 47 Result in log IU/mL is 5.56. ADDITIONAL INFORMATION The quantification range of this assay is 15 to 100,000,000 IU/mL (1.18 log to 8.00 log IU/mL). Testing was performed using the pawel HCV test ([employer] with the pawel Linkdex0 System. Test Performed by: [facility] - [address] [address] 48 ADDITIONAL INFORMATION This test was performed using the [employer] RealTime HCV Genotype II assay ([employer] [place], [place]). Test Performed by: [address] [address] 49 Because ethnic data is not always [...] 5 Kidney failure <15 (or dialysis) 50 High reactive sample are considered positive for Hepatitis C 51 Therapeutic target for the treatment of diabetes mellitus patients is <7% HBA1C, and in selective patients <6.0%. Please refer to [place] [employer] diabetic care guidelines for further information. 52 Because ethnic data is not always readily [...] 15-29 5 Kidney failure <15 (or dialysis) 53 Normal Range 180 to 914 Indeterminate Range 145 to 180 Deficient Range <145 54 REFERENCE VALUE <1.0 (Negative) 55 REFERENCE VALUE <1.0 (Negative) Test Performed by: [address] [address] 56 REFERENCE VALUE <=1.0 (Negative) 57 REFERENCE VALUE <20.0 (Negative) 58 Tests for antibodies to dsDNA and KEYLA antigens are not performed automatically unless the JACQUIE result is > or= 3.0 U. Studies performed at [facility] indicate that positive JACQUIE results <3.0 U are rarely accompanied by positive second order tests. Test Performed by: [facility] - [facility] [address] [place] [address] 59 Serologic response to B. burgdorferi infection is not detected, but cannot rule out early infection during which low or undetectable antibody levels to B. burgdorferi may be present. If clinically indicated, a new serum specimen should be submitted in 7-14 days. Test Performed by: [facility] - [place] [facility] [address] [place] [address] 60 Because ethnic data is not always readily [...] 15-29 5 Kidney failure <15 (or dialysis) 61 Therapeutic concentration: <50 ug/mL Toxic concentration: >120 ug/mL 62 Presumptive Positive Presumptive positive results are unconfirmed. 63 Presumptive Positive Presumptive positive results are unconfirmed. 64 The urine specimen was tested at the listed cutoffs: Drug class test level (ng/mL) Amphetamines 500 Barbiturates 200 Benzodiazepine metabolites 200 Cocaine metabolites 150 Cannabinoids 50 Opiates 300 Pcp 25 Specimen was received without chain of custody. Results should be used for medical purposes only. 65 SEE RESULT BELOW Name: STEPHANIE PRICE : [address]: Jeremy Ruvalcaba MD Acct: [id number] Unit: [id number] AGE: 26 Location: ED Re01/11/17 SEX: F Status: REG ER SPEC: [id number] KIKI: 01/11/[address] [facility] [address]: Tee Vela MD REQ: [id number] RECD: 01/11/17 STATUS: WALTER LEDEZMA DR: Cindy BROOKSC _ SOURCE: URINE SPDESC: ORDERED: Urine Culture Procedure Result Reported Site Urine Culture Final 01/13/17- 912 ML Mixed salvador; possible contamination. Suggest resubmission. * ML - MAIN LAB ([facility]) . END OF REPORT * ML=Testing performed at Main Lab DEPARTMENT OF PATHOLOGY, [address] [place] [address] Kevin Rebolledo M.D. Director [facility] # [id number] 66 Presumptive Positive Presumptive positive results are unconfirmed. 67 The urine specimen was tested at the listed cutoffs: Drug class test level (ng/mL) Amphetamines 500 Barbiturates 200 Benzodiazepine metabolites 200 Cocaine metabolites 150 Cannabinoids 50 Opiates 300 Pcp 25 Specimen was received without chain of custody. Results should be used for medical purposes only. 68 Because ethnic data is not always readily [...] 15-29 5 Kidney failure <15 (or dialysis) 69 Therapeutic concentration: <50 ug/mL Toxic concentration: >120 ug/mL 70 SEE RESULT BELOW Name: STEPHANIE PRICE : [address]: Cindy ARAUZ Acct: [id number] Unit: [id number] AGE: 26 Location: [facility] Re09/09/16 SEX: F Status: REG REF SPEC: [id number] KIKI: 09/09/16-[address] [facility] [address]: Cindy ARAUZ REQ: [id number] RECD: 09/10/16 STATUS: COMP _ SOURCE: VAGINAL SPDESC: ORDERED: Genital Culture COMMENTS: [id number] Procedure Result Reported Site Genital Culture Final 09/12/16- 1157 ML Organism 1 YEAST Quantity 1+ Organism 2 NORMAL SALVADOR Quantity 3+ * ML - MAIN LAB ([facility]) . END OF REPORT * ML=Testing performed at Main Lab DEPARTMENT OF PATHOLOGY, [address] [place] [address] Kevin Rebolledo M.D. Director [facility] # [id number] 71 void, hazy, dark yellow 72 SEE RESULT BELOW Name: DEESTEPHANIEKVNG GRANADOS : [address]: German Hernandez MD Acct: [id number] Unit: [id number] AGE: 26 Location: ED Re04/19/16 SEX: F Status: DEP ER SPEC: [id number] KIKI: 04/19/16-[address] [facility] [address]: German Hernandez MD REQ: [id number] RECD: 04/19/16 STATUS: WALTER LEDEZMA DR: Drew [...] or failure. * ML - MAIN LAB ([facility]) . END OF REPORT * ML=Testing performed at Main Lab DEPARTMENT OF PATHOLOGY, [address] [place] [address] Kevin Rebolledo M.D. Director [facility] # [id number] 73 GC/Chlamydia Source?: Endocervical Trichomonas Source: Endocervical 74 Because ethnic data is not always readily [...] 15-29 5 Kidney failure <15 (or dialysis) 75 <5.0 Negative 5.0 - 25.0 Indeterminate (Repeat testing recommended after 72 hours) >25.0 Positive Perimenopausal women can display HCG levels of up to 20 mIU/mL 76 SEE RESULT BELOW Name: STEPHANIE PRICE : [address]: German Hernandez MD Acct: [id number] Unit: [id number] AGE: 26 Location: ED Re04/19/16 SEX: F Status: DEP ER SPEC: [id number] KIKI: 04/19/16-[address] [facility] [address]: German Hernandez MD REQ: [id number] RECD: 04/19/16 STATUS: WALTER GANN DR: Drew Goncalves MD _ SOURCE: URINE [facility]: ORDERED: Urine Culture Procedure Result Reported Site Urine Culture Final 04/20/16- 1616 ML No Growth (<1,000 CFU/mL) * ML - MAIN LAB ([facility]) . END OF REPORT * ML=Testing performed at Main Lab DEPARTMENT OF PATHOLOGY, [address] [place] [address] Kevin Rebolledo M.D. Director [facility] # [id number] 77 Pastoral Assistant: [id number] HERNANDEZ 78 The high-risk HPV types detected by the assay include: 16, 18, 31, 33, 35, 39, 45, 51, 52, 56, 58, 59, 66, and 68. 79 SEE RESULT BELOW Name: STEPHANIE PRICE : [address]: Jeremy Godoy MD Acct: [id number] Unit: [id number] AGE: 25 Location: [facility] Re12/23/15 SEX: F Status: REG REF SPEC: [id number] KIKI: 12/23/[address]: Jeremy Godyo MD REQ: [id number] RECD: 12/24/159005 STATUS: SOUT _ ORDERED: IMAGE ANALYSIS, HPV/Thin Prep COMMENTS: [id number] FINAL DIAGNOSIS Negative for Intraepithelial lesion or [...] was evaluated with the assistance of the Snapshot Interactive Test Imaging System. Due to cytologic findings at the pharmacy retail support specialist microscope, comprehensive manual rescreening by a Eyewear Consultant may be required. The Pap Smear is [...] performed at Main Lab DEPARTMENT OF PATHOLOGY, [address] [place] [address] Kevin Rebolledo M.D. Director [facility] # [id number] 80 SEE RESULT BELOW Name: STEPHANIE PRICE : [address]: Jeremy Godoy MD Acct: [id number] Unit: [id number] AGE: 25 Location: [facility] Re12/23/15 SEX: F Status: REG REF SPEC: [id number] KIKI: 12/23/15-[address]: Jeremy Godoy MD REQ: [id number] RECD: 12/24/15140 STATUS: COMP _ SOURCE: VAGINAL SPDESC: ORDERED: Genital Culture COMMENTS: [id number] Procedure Result Reported Site Genital Culture Final 12/26/15- 1450 ML Organism 1 BILLY VAGINALIS - PRESUMPTIVE Quantity 3+ Organism 2 YEAST Quantity 2+ Organism 3 NORMAL SALVADOR Quantity 1+ * ML - MAIN LAB ([facility]) . END OF REPORT * ML=Testing performed at Main Lab DEPARTMENT OF PATHOLOGY, [address] [place] [address] Kevin Rebolledo M.D. Director [facility] # [id number] [facility] Severe Sepsis and Septic Shock Management Bundle Measure requires all lactic acids initially measuring >2.0 mmol/L be repeated. Procedures Date Code Description Status 07/31/2016 28265 SC/Im Injections Completed 12/23/2015 52827 Anoscopy Diagnostic Completed Encounters Type Date Location Provider Dx Diagnosis Office Visit 05/12/2018 Main Office Bruno Clement, B18.2 Chronic viral 2:45p D.O. hepatitis C M54.9 Dorsalgia, unspecified F41.9 Anxiety disorder, unspecified F31.9 Bipolar disorder, unspecified F11.10 Opioid abuse, uncomplicated L03.315 Cellulitis of perineum Office Visit 04/29/2018 10:30a Main Office Cindy Lee, F11.10 Opioid abuse, PA uncomplicated F31.9 Bipolar disorder, unspecified F41.9 Anxiety disorder, unspecified M54.9 Dorsalgia, unspecified J20.9 Acute bronchitis, unspecified Office Visit 02/08/2018 11:00a Main Office Cindy Lee F41.9 Anxiety disorder, PA unspecified B18.2 Chronic viral hepatitis C N10 Acute pyelonephritis S20.219S Contusion of unspecified front wall of thorax, sequela Office Visit 09/22/2017 2:35p Main Office Cindy Lee F41.9 Anxiety disorder, PA unspecified B18.2 Chronic viral hepatitis C F11.10 Opioid abuse, uncomplicated F31.9 Bipolar disorder, unspecified Z11.1 Encounter for screening for respiratory tuberculosis Office Visit 08/25/2017 3:55p Main Office Cindy Lee, Z71.51 Drug abuse PA counseling and surveillance of drug abuser F11.10 Opioid abuse, uncomplicated F19.10 Other psychoactive substance abuse, uncomplicated B18.2 Chronic viral hepatitis C N20.0 Calculus of kidney Office Visit 06/23/2017 11:45a Main Office Cindy Lee PA K20.8 Other esophagitis F41.9 Anxiety disorder, unspecified N20.0 Calculus of kidney M54.5 Low back pain B18.2 Chronic viral hepatitis C F11.21 Opioid dependence, in remission N83.202 Unspecified ovarian cyst, left side Office Visit 05/26/2017 1:55p Main Office Cindy Lee PA N76.0 Acute vaginitis N83.202 Unspecified ovarian cyst, left side F41.9 Anxiety disorder, unspecified R10.84 Generalized abdominal pain F11.21 Opioid dependence, in remission N20.0 Calculus of kidney M54.5 Low back pain Office Visit 05/17/2017 4:30p Main Office Cindy Lee PA M54.5 Low back pain F41.9 Anxiety disorder, unspecified B18.2 Chronic viral hepatitis C F11.21 Opioid dependence, in remission R10.84 Generalized abdominal pain F17.210 Nicotine dependence, cigarettes, uncomplicated N83.202 Unspecified ovarian cyst, left side N20.0 Calculus of kidney K59.00 Constipation, unspecified Office Visit 05/04/2017 11:20a Main Office Cindy Lee PA B18.2 Chronic viral hepatitis C F11.21 Opioid dependence, in remission R19.7 Diarrhea, unspecified R10.84 Generalized abdominal pain F17.210 Nicotine dependence, cigarettes, uncomplicated J06.9 Acute upper respiratory infection, unspecified J03.90 Acute tonsillitis, unspecified Office Visit 04/07/2017 1:55p Main Office Cindy Lee PA B18.2 Chronic viral hepatitis C F11.21 Opioid dependence, in remission R10.84 Generalized abdominal pain G43.009 Migraine w/o aura, not intractable, w/o status migrainosus M54.9 Dorsalgia, unspecified Office Visit 03/15/2017 3:50p Main Office Cindy Lee, F25.0 Schizoaffective PA disorder, bipolar type F11.21 Opioid dependence, in remission R10.84 Generalized abdominal pain G43.009 Migraine w/o aura, not intractable, w/o status migrainosus F17.210 Nicotine dependence, cigarettes, uncomplicated Z23 Encounter for immunization Office Visit 03/02/2017 11:40a Main Office Cindy Lee, F11.20 Opioid dependence, PA uncomplicated F31.9 Bipolar disorder, unspecified K21.9 Gastro-esophageal reflux disease without esophagitis M54.13 Radiculopathy, cervicothoracic region R10.84 Generalized abdominal pain F17.210 Nicotine dependence, cigarettes, uncomplicated Office Visit 01/15/2017 9:15a Main Office Cindy Lee, F11.20 Opioid dependence, PA uncomplicated F31.9 Bipolar disorder, unspecified R10.84 Generalized abdominal pain N91.2 Amenorrhea, unspecified Office Visit 12/29/2016 8:40a Main Office Cindy Lee, R10.84 Generalized PA abdominal pain F11.20 Opioid dependence, uncomplicated G43.009 Migraine w/o aura, not intractable, w/o status migrainosus M54.9 Dorsalgia, unspecified R31.9 Hematuria, unspecified F31.9 Bipolar disorder, unspecified Office Visit 12/07/2016 10:05a Main Office Cindy Lee, R10.84 Generalized PA abdominal pain F11.20 Opioid dependence, uncomplicated G43.009 Migraine w/o aura, not intractable, w/o status migrainosus F31.9 Bipolar disorder, unspecified M54.9 Dorsalgia, unspecified Office Visit 11/02/2016 4:10p Main Office Cindy Lee, R10.84 Generalized PA abdominal pain R19.7 Diarrhea, unspecified F11.20 Opioid dependence, uncomplicated G43.009 Migraine w/o aura, not intractable, w/o status migrainosus N92.6 Irregular menstruation, unspecified R10.30 Lower abdominal pain, unspecified F31.9 Bipolar disorder, unspecified Office Visit 10/20/2016 2:40p Main Office Cindy Lee, A60.04 Herpesviral PA vulvovaginitis R10.84 Generalized abdominal pain M54.9 Dorsalgia, unspecified F11.20 Opioid dependence, uncomplicated G43.009 Migraine w/o aura, not intractable, w/o status migrainosus Office Visit 10/07/2016 2:35p Main Office Cindy Lee, R10.84 Generalized PA abdominal pain B00.9 Herpesviral infection, unspecified F11.20 Opioid dependence, uncomplicated Office Visit 09/09/2016 2:35p Main Office Cindy Lee, R10.84 Generalized PA abdominal pain F11.20 Opioid dependence, uncomplicated F17.210 Nicotine dependence, cigarettes, uncomplicated N76.0 Acute vaginitis Z11.3 Encntr screen for infections w sexl mode of transmiss N91.2 Amenorrhea, unspecified G43.009 Migraine w/o aura, not intractable, w/o status migrainosus R19.7 Diarrhea, unspecified Office Visit 08/17/2016 2:30p Main Office Cindy Lee, R10.84 Generalized PA abdominal pain R19.7 Diarrhea, unspecified F11.20 Opioid dependence, uncomplicated K08.89 Other specified disorders of teeth and supporting structures Office Visit 08/03/2016 4:50p Main Office Cindy Lee, F11.20 Opioid dependence, PA uncomplicated R10.84 Generalized abdominal pain F31.9 Bipolar disorder, unspecified R19.7 Diarrhea, unspecified J02.0 Streptococcal pharyngitis Office Visit 07/31/2016 10:00a Main Office Jeremy Gomez J02.0 Nydia Godoy M.D. pharyngitis Office Visit 07/29/2016 11:25a Main Office Cindy Lee, R10.84 Generalized PA abdominal pain F11.20 Opioid dependence, uncomplicated F31.9 Bipolar disorder, unspecified R31.9 Hematuria, unspecified F17.210 Nicotine dependence, cigarettes, uncomplicated G25.81 Restless legs syndrome J02.0 Streptococcal pharyngitis Office Visit 07/13/2016 9:45a Main Office Cindy Lee, R10.84 Generalized PA abdominal pain F11.20 Opioid dependence, uncomplicated R31.21 Asymptomatic microscopic hematuria F31.9 Bipolar disorder, unspecified F17.210 Nicotine dependence, cigarettes, uncomplicated Office Visit 06/24/2016 2:35p Main Office Cindy Lee, R10.84 Generalized PA abdominal pain F11.20 Opioid dependence, uncomplicated R31.9 Hematuria, unspecified F31.9 Bipolar disorder, unspecified Office Visit 06/17/2016 4:15p Main Office Cindy Lee, R10.84 Generalized PA abdominal pain R19.5 Other fecal abnormalities F11.20 Opioid dependence, uncomplicated F31.9 Bipolar disorder, unspecified R31.9 Hematuria, unspecified Z79.899 Other lobsterman (current) drug therapy Office Visit 12/23/2015 2:00p Main Office Jeremy Gomez Z71.89 Other specified Magda Godoy counseling R10.84 Generalized abdominal pain R19.5 Other fecal abnormalities Z80.49 Family history of malignant neoplasm of other genital organs Plan of Treatment 05/12/2018 - Bruno Clement D.O.B18.2 Chronic viral hepatitis CM54.9 Dorsalgia , vqachcmukpwG46.9 Anxiety disorder, swdrvsfddudL35.9 Bipolar disorder, jmyxiijsfljP24.10 Opioid abuse, xnqkjnbhqoixsT07.315 Cellulitis of perineumNew Medication:Clindamycin HCL 300 mg - take 1 capsule by mouth every 8 hours for 10 daysFollow up:as needed with ARTURO
--- OUTSIDE RECORDS SUMMARY | 2018-06-09 11:54 | XMS REPORT | Continuity of Care Document ---
:1990 External Reference #:[id number] Author Name Bruno Clement D.O. Address [address] [place] [address] Care Team Providers Name Role Phone HCP given Primary Care Physician Unavailable Payers Type Date Identification Numbers Payment Provider Subscriber Expires: Policy Number: Sara Anitra Price 2018 [id number] Ind/Ppo/Hmo/Pos PayID: [id number] [address] [address] [place] [address] Effective: 2018 Policy Number: [id number] Medicaid Stephanie Price PayID: [id number] [place] [address] Advance Directives Description No Information Available Problems [...] heroin, In The Past cocaine--inpatient rehab at [facility] 01/2017, relapse 06/2017 Tobacco Use [...] Patient is currently sexually active Age 1st [place] 16 Years Old STD's No STD History Allergies, Adverse Reactions, Alerts Date Description Reaction Status Severity Comments 12/23/2015 Penicillins Active hives 12/23/2015 Augmentin Active hives, sob 06/01/2016 Amoxicillin Active hives 06/01/2016 Cats Active hives 04/29/2018 Suboxone Active vomiting, bumps in mouth Medications Medication Date Status Form Strength Qnty SIG Indications Ordering Provider Clonazepam 04/29 Active Tablets 1mg 45tab 1/2 - 1 tab F41.9 Silco s by mouth up Drew, to three [...] Tablets 4mg 30tab 1 tab po tid Silco Dispers s as needed for Drew, nausea M.D. Nexplanon Active Implant 68mg placed 05/2014 Unknown /0000 Azithromycin 04/29 Hx Tablets 250mg 6tabs 2 tabs by J20.9 Silco mouth daily Drew, - x1 day then 1 M.D. 05/04 tab by mouth /2018 daily x4 days Tramadol HCL 02/08 Hx Tablets 50mg 20tab 1 tab by N10 Silcomeryl, s mouth every 8 Drew, - hours as M.D. 04/29 needed for pain Buspirone HCL 02/08 Hx Tablets 15mg 60tab 1 tab by F31.9 Silcomeryl, s mouth twice a Drew, - day for M.D. 04/29 anxiety /2018 Sulfamethoxazole 02/01 Hx Tablets 800-160mg 28tab 1 tablet by Unknown /Trimethoprim DS s mouth twice - daily x 14 Omeprazole 12/18 Hx Capsules 40mg 30cap 1 capsule by Sonal s mouth daily - 04/29 Buspirone HCL 09/22 Hx Tablets 10mg 60tab 1 tab by F31.9 Urbano, s mouth twice a Bruno, - day for D.O. 02/08 anxiety Trazodone HCL 08/25 Hx Tablets 100mg 30tab 1 tabs by Sacha, s mouth every Drew, - night at M.D. 02/07 bedtime for sleep Naltrexone HCL 06/20 Hx Tablets 50mg 30tab 1 tab by Sacha, s mouth daily Drew, - with food M.D. 02/07 Diflucan 05/28 Hx Tablets 150mg 1tabs 1 tab by Sacha, mouth once Drew, - for yeast M.D. 06/04 infection Metronidazole 05/28 Hx Tablets 500mg 14tab take 1 tablet Sacha s by mouth two Drew, - times a day M.D. 06/04 for 7 days Lorazepam 05/17 Hx Tablets 1mg 120ta 1 tab by F41.9 Sacha bs mouth up to Drew, - two times M.D. 08/25 during the day and up to 2 tabs at night as needed for anxiety Ciprofloxacin 05/16 Hx Tablets 500mg 1 tab twice a Unknown HCL day x 7 - 05/25 Docusate Sodium 05/16 Hx Capsules 100mg 1 cap by mouth twice a - day as needed 04/29 for constipation Polyethylene 05/16 Hx Packet [id number] 1 capful in 8 Unknown Glycol 3350 oz of water - by mouth prn 05/25 constipation Diphenoxylate-At 05/04 Hx Tablets 2.5-0.025 120ta 1 tab by R19.7 beatrice Goncalves mg bs mouth every 6 Drew, - hours as M.D. 04/29 needed for diarrhea Medrol 05/04 Hx TBPK 4mg 1unit use as J03.90 Sacha s directed on Drew, - package M.D. 05/16 Cyclobenzaprine 12/21 Hx Tablets 10mg 90tab 1 tab by Sacha, HCL s mouth three Drew, - times a day M.D. 05/17 as needed for spasms Acidophilus 03/15 Hx Capsules 60cap 1 tab po bid Silcoff, Extra Strength s Drew - M.DAdriana 02/07 Folic Acid-Vit 03/15 Hx Tablets 0.4-50-0. 30tab 1 tab po Silcoff, B6-Vit B12 1mg s daily Drew - M.DAdriana 09/21 Multi Vitamin 03/15 Hx Tablets 30tab 1 tab po Silcoff, Daily s daily Drew - M.DAdriana 09/21 Olanzapine 03/14 Hx Tablets 5mg 60tab 2 tablet Imancomeryl, s every night Drew, - at bedtime M.D. 02/07 Vistaril 03/14 Hx Capsules 50mg 90cap 1 tab by F31.9 Imancomeryl, s mouth up to Drew, - 3x daily M.D. 09/22 Zanaflex 03/14 Hx Capsules 6mg 90cap 1 tab po up Unknown s to tid prn - 04/07 Trileptal 03/14 Hx Tablets 300mg 120ta 2 tab by Sacha, bs mouth 2x/day Terrance RussellDAdriana 02/07 Meloxicam 03/02 Hx Tablets 15mg 30tab take one R10.84 Sacha, s tablet by Drew, - mouth every M.D. 04/29 day for pain M54.5 Tizanidine HCL 03/02/2017 - Hx Capsules 6mg 30caps one tab by Sacha, 03/14/2017 mouth three Drew, times a day M.D. as needed for spasms Nicotine Step 2 03/02/2017 - Hx Patches 14mg/2 30units apply 1 F17 Silfarzana, 03/14/2017 24HR 4HR patch .21 Drew, topically 0 M.D. daily Omeprazole 03/02/2017 - Hx Capsules DR 20mg 30caps 1 by mouth K21 Sacha, 03/14/2017 every day .9 Drew, M.D. Tizanidine HCL 03/01/2017 - Hx Capsules 4mg [...] Hx Tablets 45mg 90tabs 1 by mouth F3 Urbano, 02/07/2018 nightly .9 Marixa Carr. Oxcarbazepine 03/01/2017 - Hx Tablets 300mg 2 tabs po Unknown 03/14/2017 twice daily Clonidine HCL 01/15/2017 - Hx Tablets 0.3mg 60tabs 1 tab po bid F31 Urbano, 03/01/2017 .9 Belén CarrO. F11.20 Meloxicam 12/29/2016 - Hx Tablets 7.5mg 60tabs 1 tab by R10.84 Sacha, 03/02/2017 mouth up Drew, to twice M.D. daily as needed for pain Chlorzoxazone 12/29/2016 - Hx Tablets 500mg 90tabs 1 tab by M54.9 Sacha, 03/01/2017 mouth Drew, three M.D. times a day as needed spasms Orphenadrine 12/08/2016 - Hx Tablets ER 100mg 60tabs take 1 M54.9 Tedtor, Citrate ER 12/29/2016 12HR tablet by KAVITA White mouth two times daily as needed for spasms Carisoprodol 12/07/2016 - Hx Tablets 250mg 90tabs 1 tab po M54.9 Hektor , 12/08/2016 every 8 KAVITA White hours as needed for muscle spasms Celecoxib 12/07/2016 - Hx Capsules 100mg 60caps 1 cap by Rosalva0.84 Tedtor, 12/29/2016 mouth KAVITA White twice a day [...] Tablets 7.5mg 60tabs 1 tab by R10.84 Tedtor, 12/07/2016 mouth up KAVITA White to twice daily as needed for pain Clonidine HCL 11/02/2016 - Hx Tablets 0.2mg 60tabs 1 tab by F31.9 Imancoff, 01/15/2017 mouth Drew, twice a M.D. day [...] Tablets 1gm 14tabs 1 tab by A60.04 Tedtor, 10/27/2016 mouth every KAVITA White 12 hours x7 days Metaxalone 10/20/2016 - Hx Tablets 800mg 90tabs 1 tab by F11.20 Hektor, 11/02/2016 mouth three KAVITA White times a [...] by G43.009 Silcoff, Succinate 04/29/2018 mouth at Drew, onset of M.D. migraine, may repeat x1 [...] tab by F31.9 Rosa, 11/02/2016 mouth at Cindy PA night for anxiety F11.20 Hydroxyzine 08/03/2016 - [...] 300mg 20caps 1 cap by mouth J02.0 Hektor, 08/08/2016 twice a day x10 Cindy, spencer [...] every F31.9 Silcoff, 03/01/2017 night at bedtime Janes Russell. Oxycodone-Elliot 06/24/2016 - Hx Tablets 5-325m 30tabs take 1 tablet up R10.84 [facility], taminophen 08/03/2016 g to 2 times a day Cindy, as needed for PA pain Suboxone 05/20/2016 - Hx Film 8-2mg 1 by mouth every Unknown 06/23/2016 morning; suboxone prescriber# [id number] Clonidine HCL 05/20/2016 - Hx Tablets ER 0.1mg 30tabs 1 tab by mouth at [facility], ER 08/03/2016 12HR bedtime KAVITA White Diflucan 12/30/2015 - Hx Tablets 150mg 1tabs 1 tab by mouth [facility], 06/16/2016 once KAVITA White Metrogel-Vagi 12/30/2015 - Hx Gel 0.75% 70gm 1 applicatorful [facility], nal 06/16/[address] vagina Cindy, every night at ME bedtime x5 days No Active 12/23/2015 - Hx Unknown Medications 12/30/2015 Diphenoxylate - Hx Tablets 2.5-0. take 2 tablets by R19.7 Unknown -Atropine 03/14/2017 025mg mouth 4 times per day as needed for diarrhea Baclofen - Hx Tablets 10mg take 1 tablet by Unknown 05/17/2017 mouth three times a day Nystatin - Hx Suspension [id number] take 4 Unknown 05/25/2017 Unit/M milliliters by L mouth four times a day as directed Medications Administered in Office Medication Date Status Form Strength Qnty SIG Indications Ordering Provider SC/Im Administered Injection Jeremy Godoy M.D. Immunizations CPT Code Status Date Vaccine Lot # [id number] Given 08/13/2017 Adacel or Boostrix, TDaP 09794 Given 03/15/2017 Adacel or Boostrix, TDaP [id number] 63371 Given 05/29/2010 Flu, Split Virus 3Yrs 46070 Given 08/09/2008 Gardasil HPV vaccine 51261 Given 03/22/2008 Varicella (Chicken Pox) Immunization 38304 Given 03/22/2008 Flu, Split Virus 3Yrs 55567 Given 03/22/2008 Gardasil HPV vaccine 63059 Given 07/12/2005 Menactra Menningitis Vaccine 22907 Given 07/12/2005 Adacel or Boostrix, TDaP 51986 Given 10/24/1996 Oral Poliovirus Immunization 12141 Given 10/24/1996 MMR Virus Immunization 15872 Given 10/24/1996 Dtap Immunization (Tripedia) (Infanrix) 09583 Given 10/21/1993 Hep B Immunization, Ped/Adolescent To 11 Yrs 57389 Given 05/27/1993 Hep B Immunization, Ped/Adolescent To 11 Yrs 15959 Given 04/29/1993 Hep B Immunization, Ped/Adolescent To 11 Yrs 81417 Given 04/29/1993 DTP-Hib (Tetramune) 27515 Given 04/29/1993 Oral Poliovirus Immunization 05328 Given 04/29/1993 MMR Virus Immunization 95689 Given 1992 DTP Immunization 31989 Given 1992 3 dose Hib (PRP-Omp) 12687 Given 1992 Oral Poliovirus Immunization 31965 Given 1992 DTP Immunization 84541 Given 1992 3 dose Hib (PRP-Omp) 22091 Given 1992 Oral Poliovirus Immunization 62824 Given 1992 DTP Immunization 66018 Given 1992 3 dose Hib (PRP-Omp) Vital [...] Test Result H/L Range Note Laboratory test [facility] Hepatitis C Undetected Undetected 1 finding 8 [phone] Rna Quant IU/mL Comp Metabolic [facility] Sodium 137 mmol/L N 135-145 Panel 8 [phone] Potassium 4.5 mmol/L N 3.5-5.0 Chloride 101 [...] Egfr 135.7 >60 2 Poc Urinalysis 01/21/2018 [facility] Poc Glucose, Trace Abnormal Negative [phone] Urine Poc Bilirubin, Urine 1+ Abnormal Negative Poc Ketone, Urine Negative Negative Poc Specific [place], Urine >=1.030 N 1.010-1.030 Poc Blood, Urine Negative Negative Poc pH, Urine 5.5 N 5-9 Poc Protein, Urine Trace Abnormal Negative Poc Urobilinogen, Urine 0.2 Negative Poc Nitrite, Urine Negative Negative Poc Leukocytes, Urine Negative Negative Poc Color, Urine Yellow Poc Clarity, Urine Clear 3 Poc Urinalysis 12/23/2017 [facility] Poc Glucose, Trace Abnormal Negative [phone] Urine Poc Bilirubin, Urine Negative Negative Poc Ketone, Urine Negative Negative Poc Specific [place], Urine 1.020 N 1.010-1.030 Poc Blood, Urine 2+ Abnormal Negative Poc pH, Urine 5.5 N 5-9 Poc Protein, Urine 2+ Abnormal Negative Poc Urobilinogen, Urine 0.2 Negative Poc Nitrite, Urine Positive Abnormal Negative Poc Leukocytes, Urine 2+ Abnormal Negative Poc Color, Urine Dark yellow Poc Clarity, Urine Cloudy 4 Urine Culture And 12/23/2017 [facility] Urine Culture SEE RESULT 5 , 6 Sensitivities [phone] BELOW Comp Metabolic Panel 11/10/2017 [facility] Sodium 136 mmol/L N 135- 14 [phone] Potassium 3.4 mmol/L Low 3.5-5.0 Chloride [...] 136.8 >60 7 Laboratory test finding 11/10/2017 [facility] Lipase 25 U/L N 11.0- 82.0 [phone] HCG < 0.60 mIU/mL 8 D Dimer Quantitative 319 ng/mL High Less Than 230 9 CBC Auto Diff 11/10/2017 [facility] White Blood Count 9.7 10^3/uL N 3.5-10.8 [phone] Red Blood Count 4.28 10^6/uL N 4.00-5.40 [...] Blood Cells % 0.1 Quantiferon Gold 09/22/2017 [facility] QuantiFERON-Tb Gold Negative Negative 10 TB [phone] Plus TB1 Ag minus Nil Result 0 IU/mL TB2 Ag minus Nil Result 0 IU/mL TB Mitogen minus Nil Result > 10.00 IU/mL TB Nil Result 0.03 IU/mL 11 Urinalysis Profile 09/18/2017 [facility] Urine Color Yellow [phone] Urine Appearance Cloudy Urine Specific [place] 1.020 N 1.010-1.030 Urine pH 6.0 N [...] Present Abnormal Absent Urine Culture And 09/18/2017 [facility] Urine Culture SEE RESULT 12 Sensitivities [phone] BELOW CBC Auto Diff 09/18/2017 [facility] White Blood 10.7 10^3/uL N 3.5- 10. [phone] Count 8 Red Blood Count 4.44 10^6/uL [...] Cells % 0 Comp Metabolic Panel 09/18/2017 [facility] Sodium 136 mmol/L Low 139- 145 [phone] Potassium 3.9 mmol/L N 3.5-5.0 Chloride 103 [...] >60 Egfr 133.3 >60 13 Laboratory 09/18/2017 [facility] C Reactive 1.15 mg/L N < 5.00 14 test finding [phone] Protein Laboratory 09/18/2017 [facility] Gardnerella/Y SEE RESULT 15, test finding [phone] east: Vaginal BELOW 16 Dna Laboratory 08/25/2017 [facility] Hepatitis C 617 IU/mL Abnormal Undetected 17 test finding [address] [place] [address] [phone] Laboratory 08/13/2017 [facility] Gardnerella/Y SEE RESULT 18 test finding [phone] east: Vaginal BELOW Dna GC/Chlamydia 08/13/2017 [facility] Chlamydia Negative Negative Amplified [phone] trachomatis Rna Rna Neisseria gonorrhoeae (GC) Rna Negative Negative Laboratory test 08/13/2017 [facility] Trichomonas Negative Negative 19 finding [phone] Vaginalis Rna Laboratory test 08/13/2017 [facility] HCG < 0.60 mIU/mL 20 finding [phone] Rapid HIV Nonreactive Nonreactive 21 Hepatitis B Surface Ag Nonreactive Nonreactive 22 Hepatitis B [place] AB 08/13/2017 [facility] Hepatitis B Surface Immune Immune Titer [phone] AB Hep B Surf AB Level 61.99 mIU/mL >12 Laboratory 08/13/2017 [facility] Hepatitis C High Abnormal Nonreactive 23 test finding [phone] Antibody Reactive Urinalysis 06/25/2017 [facility] Urine Color Yellow Profile [phone] Urine Appearance Clear Urine Specific [place] 1.013 N 1.010-1.030 Urine pH 6.0 N 5-9 Urine Urobilinogen Negative Negative Urine Ketones Trace Abnormal Negative Urine Protein Negative Negative Urine Leukocytes Negative Negative Urine Blood Negative Negative Urine Nitrite Negative Negative Urine Bilirubin Negative Negative Urine Glucose Negative Negative Urine Drug 06/25/2017 [facility] Amphetamine Ur Presumptive Abnormal None 24 SCR ED & [phone] Screen Posi <SEE Detect Pain NOTE> Clinic Barbiturates Urine Screen None Detected None Detect Benzodiazepine Urine Screen None Detected None Detect Urine Cannabinoids Screen None Detected None Detect Urine Cocaine Screen Presumptive Posi <SEE NOTE> Abnormal None Detect 25 Urine Opiates Screen Presumptive Posi <SEE NOTE> Abnormal None Detect 26 Urine Phencyclidine Screen None Detected None Detect 27 Comp Metabolic Panel 06/25/2017 [facility] Sodium 134 mmol/L N 133- 145 [phone] Potassium 3.4 mmol/L Low 3.5-5.0 Chloride 102 [...] Egfr 153.7 >60 28 Laboratory test 06/21/2017 [facility] Clotest SEE RESULT 29 finding [phone] BELOW Laboratory test 06/21/2017 [facility] Surgical Interface SEE RESULT 30, 31 finding [phone] Order BELOW Laboratory test 05/26/2017 [facility] Culture Genital & SEE RESULT 32 finding [phone] Sensitivity BELOW Urinalysis 05/25/2017 [facility] Urine Color Yellow Profile [phone] Urine Appearance Clear Urine Specific [place] 1.020 N 1.010-1.030 Urine pH 6.0 N [...] Crystals Present Abnormal Absent Urine Drug 05/25/2017 [facility] Amphetamine Ur Presumptive Abnormal None 33 SCR ED & [phone] Screen Posi <SEE Detect Pain NOTE> Clinic Barbiturates Urine Screen None Detected None Detect Benzodiazepine Urine Screen None Detected None Detect Urine Cannabinoids Screen None Detected None Detect Urine Cocaine Screen Presumptive Posi <SEE NOTE> Abnormal None Detect 34 Urine Opiates Screen None Detected None Detect Urine Phencyclidine Screen None Detected None Detect 35 GC/Chlamydia 05/25/2017 [facility] Chlamydia Negative Negative Amplified Rna [phone] trachomatis Rna Neisseria gonorrhoeae (GC) Rna Negative Negative Laboratory test 05/25/2017 [facility] Urine Culture And SEE RESULT 36 finding [phone] Sensitivities BELOW CBC Auto Diff 05/25/2017 [facility] White Blood Count 9.2 10^3/uL N 3.5-10 [phone] Red Blood Count 4.56 10^6/uL N [...] Cells % 0 Comp Metabolic Panel 05/25/2017 [facility] Sodium 139 mmol/L N 133- 145 [phone] Potassium 3.9 mmol/L N 3.5-5.0 Chloride 104 [...] >60 Egfr 119.3 >60 37 Laboratory 05/25/2017 [facility] Hepatitis C High Abnormal Nonreactive 38 test finding [phone] Antibody Reactive Urinalysis 05/11/2017 [facility] Urine Color Yellow Profile [phone] Urine Appearance Cloudy Urine Specific [place] 1.010 N 1.010-1.030 Urine pH 7.0 N [...] Urine Yeast Present Abnormal Absent GC/Chlamydia 05/11/2017 [facility] Chlamydia Negative Negative Amplified Rna [phone] trachomatis Rna Neisseria gonorrhoeae (GC) Rna Negative Negative Laboratory test 05/11/2017 [facility] Urine Culture And SEE RESULT 39 finding [phone] Sensitivities BELOW CBC Auto Diff 05/11/2017 [facility] White Blood Count 11.0 High 3.5- 8 [phone] 10^3/uL 0.8 Red Blood Count 4.39 10^6/uL [...] Cells % 0 Comp Metabolic Panel 05/11/2017 [facility] Sodium 135 mmol/L N 133- 145 [phone] Potassium 3.8 mmol/L N 3.5-5.0 Chloride 101 [...] 145.4 >60 40 Laboratory test finding 05/11/2017 [facility] Lipase 24 U/L N 11.0- 82.0 [phone] C Reactive Protein < 1.00 mg/L N < 5.00 41 HCG < 0.60 mIU/mL 42 Blood Culture SEE RESULT BELOW 43 Rapid Influenza A 04/19/2017 [facility] Influenza A NEGATIVE Negative 44 & B Molecular [phone] Molecular Influenza B Molecular NEGATIVE Negative Laboratory test 04/19/2017 [facility] Rapid Strep Negative Negative 45 finding [phone] Molecular HIV 1/2 AB 04/08/2017 [facility] HIV 1 2 Nonreactive Nonreactive 46 Evaluation [phone] Antibody Laboratory test 04/08/2017 [facility] Hepatitis C 508032 IU/mL Undetected 47 finding [phone] Rna Quant Hepatitis C Genotype 1a Undetected 48 Comp Metabolic Panel 04/05/2017 [facility] Sodium 138 mmol/L N 133-145 [address] [place], [place] [id number] [phone] Potassium 4.2 mmol/L N 3.5-5.0 Chloride 106 [...] >60 Egfr 129.0 >60 49 Hepatitis 04/05/2017 [facility] Hepatitis B Nonreactive Nonreactive Acute Panel [address] [place] [address] Antigen [phone] Hepatitis B Core IgM Nonreactive Nonreactive Hepatitis A AB IgM Nonreactive Nonreactive Hepatitis C Antibody High Reactive Abnormal Nonreactive 50 CBC Auto Diff 04/04/2017 [facility] White Blood Count 8.3 10^3/uL N 3.5-10.8 [phone] Red Blood Count 4.41 10^6/uL N 4.0-5.4 [...] Blood Cells % 0.1 Laboratory test 04/04/2017 [facility] Hemoglobin A1c 5.1 % N 4.0-5.6 51 finding [phone] (Glyco HGB) Comp Metabolic 04/04/2017 [facility] Sodium 133 mmol/L N 133-145 Panel [phone] Potassium 4.4 mmol/L N 3.5-5.0 Chloride 102 [...] Egfr 148.1 >60 52 Laboratory test 04/04/2017 [facility] Creatine Kinase(CK) 105 U/L N 10-223 finding [phone] TSH (Thyroid Stim Horm) 0.88 mcIU/mL N 0.34-5.60 Vitamin B12 984 pg/mL High [phone] Ssa/SSB Abs Igg 04/04/2017 [facility] SS-A/Ro Antibody <0.2 U 54 [phone] SS-B/La Antibody <0.2 U 55 Connective Tissue Panel 04/04/2017 [facility] Anti-Nuclear Antibody 0.8 U 56 [phone] Cyclic Citrullinated Peptide <15.6 U 57 Interpretation See Comment 58 Laboratory test 04/04/2017 [facility] Lyme Disease Negative Negative 59 finding [phone] Serology CBC Auto Diff 01/11/2017 [facility] White Blood 9.6 10^3/uL N 3.5- 10.8 [phone] Count Red Blood Count 4.41 10^6/uL N [...] % 0.1 N Comp Metabolic Panel 01/11/2017 [facility] Sodium 137 mmol/L N 133- 145 [phone] Potassium 4.2 mmol/L N 3.5-5.0 Chloride 105 [...] N >60 60 Laboratory test finding 01/11/2017 [facility] Acetaminophen < 15 g/ mL N 61 [phone] Alcohol < 10 mg/dL N <10 Salicylate < 2.50 mg/dL N <30 TSH (Thyroid Stim Horm) 1.01 mcIU/mL N 0.34-5.60 Urine Drug 01/11/2017 [facility] Amphetamine Ur None Detected N None Detect SCR ED & [phone] Screen Pain Clinic Barbiturates Urine Screen None Detected N None Detect Benzodiazepine Urine Screen None Detected N None Detect Urine Cannabinoids Screen None Detected N None Detect Urine Cocaine Screen Presumptive Posi <SEE NOTE> Abnormal None Detect 62 Urine Opiates Screen Presumptive Posi <SEE NOTE> Abnormal None Detect 63 Urine Phencyclidine Screen None Detected N None Detect 64 Urinalysis Profile 01/11/2017 [facility] Urine Color Alexsandra N [phone] Urine Appearance Cloudy N Urine Specific [place] 1.026 N 1.010-1.030 Urine pH 7.0 N [...] Crystals Present Abnormal Absent Laboratory test 01/11/2017 [facility] Urine Culture And SEE RESULT 65 finding [phone] Sensitivities BELOW Urinalysis 11/20/2016 [facility] Urine Color Colorless N Profile [phone] Urine Appearance Clear N Urine Specific [place] 1.002 Low 1.010-1.030 Urine pH 6.0 N [...] Bacteria Absent N Absent Urine Drug 11/20/2016 [facility] Amphetamine Ur None Detected N None Detect SCR ED & [phone] Screen Pain Clinic Barbiturates Urine Screen None Detected N None Detect Benzodiazepine Urine Screen None Detected N None Detect Urine Cannabinoids Screen None Detected N None Detect Urine Cocaine Screen Presumptive Posi <SEE NOTE> Abnormal None Detect 66 Urine Opiates Screen None Detected N None Detect Urine Phencyclidine Screen None Detected N None Detect 67 CBC Auto Diff 11/20/2016 [facility] White Blood Count 10.8 10^3/uL N 3.5-10.8 [phone] Red Blood Count 4.62 10^6/uL N 4.0-5.4 [...] % 0.1 N Comp Metabolic Panel 11/20/2016 [facility] Sodium 138 mmol/L N 133- 145 [phone] Potassium 4.0 mmol/L N 3.5-5.0 Chloride 106 [...] N >60 68 Laboratory test finding 11/20/2016 [facility] Acetaminophen < 15 g/ mL N 69 [phone] Alcohol 77 mg/dL High <10 Salicylate < 2.50 mg/dL N <30 TSH (Thyroid Stim Horm) 0.88 mcIU/mL N 0.34-5.60 Urine Drug Screen Inhouse 11/02/2016 In House Ua Cocaine - Ua Opiates - Ua Amphetamines - Urine Methanphetamines - Urine Benzodiazepines QN [place] - Urine Oxycodone QL + Urine Drug Screen Inhouse 10/07/2016 In House Ua Cocaine - Ua Opiates - Ua Amphetamines - Urine Methanphetamines - Urine Benzodiazepines QN [place] - Urine Oxycodone QL + Urine Drug Screen Inhouse 09/09/2016 In House Ua Cocaine - Ua Opiates + Ua Amphetamines - Urine Methanphetamines - Urine Benzodiazepines QN [place] - Urine Oxycodone QL + Laboratory test 09/09/2016 [facility] Culture Genital & SEE RESULT 70 finding [phone] Sensitivity BELOW Urine Drug Screen 08/03/2016 In House Ua Cocaine _ Inhouse Ua Opiates + Ua Amphetamines _ Urine Methanphetamines _ Urine Benzodiazepines QN [place] _ Urine Oxycodone QL + Laboratory test finding 07/29/2016 In [place] Culture Throat Rapid positive Screen Urine Drug Screen Inhouse 07/13/2016 In House Ua Cocaine + Ua Opiates + Ua Amphetamines - Urine Methanphetamines - Urine Benzodiazepines QN [place] - Urine Oxycodone QL + Ua Inhouse 06/17/2016 In [place] Ua Glucose - 71 Ua Bilirubin - Ua Ketones - Ua Specific [place] 1.030 Ua Blood 3+ Ua PH 5.0 Ua Protein - Ua Urobilinogen - Ua Nitrite - Ua Leukocytes - Laboratory 04/19/2016 [facility] Gardnerella/Yeast: SEE RESULT 72 test finding [phone] Vaginal Dna BELOW GC/Chlamydia 04/19/2016 [facility] Chlamydia trachomatis Negative N Negative Amplified Rna [phone] Rna Neisseria gonorrhoeae (GC) Rna Negative N Negative Laboratory test 04/19/2016 [facility] Trichomonas Negative N Negative 73 finding [phone] Vaginalis Rna Urinalysis 04/19/2016 [facility] Urine Color Alexsandra N Profile [phone] Urine Appearance Cloudy N Urine Specific [place] 1.030 N 1.010-1.030 Urine pH 5.0 N [...] Present Abnormal Absent CBC Auto Diff 04/19/2016 [facility] White Blood 12.6 10^3/uL High 3.5 -10.8 [phone] Count Red Blood Count 4.62 10^6/uL N [...] % 0 N Comp Metabolic Panel 04/19/2016 [facility] Sodium 134 mmol/L N 133- 145 [phone] Potassium 3.5 mmol/L N 3.5-5.0 Chloride 105 [...] N >60 74 Laboratory test finding 04/19/2016 [facility] HCG < 0.60 mIU/ mL N 75 [phone] Urine Culture And Sensitivities SEE RESULT BELOW 76 Laboratory test 03/12/2016 [facility] Rapid Strep Negative N Negative 77 finding [phone] Molecular Laboratory test 12/23/2015 [facility] Human Papilloma Negative N Negative 78 finding [phone] Virus Rna GC/Chlamydia 12/23/2015 [facility] Chlamydia Negative N Negative Amplified Rna [phone] trachomatis Rna Neisseria gonorrhoeae (GC) Rna Negative N Negative Laboratory test 12/23/2015 [facility] Cytology SEE RESULT 79 finding [phone] BELOW Laboratory test 12/23/2015 [facility] Culture Genital & SEE RESULT 80 finding [phone] Sensitivity BELOW Laboratory test 10/20/2015 [facility] Lactic Acid 0.6 mmol/L N 0.5- 2. 81 finding [phone] CBC Auto Diff 10/20/2015 [facility] White Blood Count 15.8 10^3/uL High 3.5-10 [phone] .8 Red Blood Count 4.85 10^6/uL N [...] performed using the pawel HCV test ([employer] with the pawel 6800 System. Test Performed by: [facility] [address] [place] [address] 2 Because ethnic data is not always [...] 5 Kidney failure <15 (or dialysis) 3 Telecommunications Support: [id number] Telecommunications Support: [id number] [phone] SEE RESULT BELOW Name: MATEO PRICEKVNG Wood : [address]: Viktor Delgado MD Acct: [id number] Unit: [id number] AGE: 27 [facility] Re12/23/17 SEX: F Status: DEP ER SPEC: [id number] KIKI: 12/23/17 [facility] DR: Viktor Delgado MD REQ: [id number] RECD: 12/23/174 STATUS: WALTER LEDEZMA DR: Cindy Lee [facility] _ SOURCE: URINE SPDESC: ORDERED: Urine Culture COMMENTS: [id number] Procedure Result Reported Site Urine Culture Final 12/25/17- 09 ML Organism 1 ESCHERICHIA COLI [place] Count >100,000 (Many) CFU/ML 1. ESCHERICHIA COLI [...] . END OF REPORT DEPARTMENT OF PATHOLOGY, [address] [place] [address] Kevin Rebolledo M.D. Director [facility] # [id number] 7 Because ethnic data is not always [...] Infect. Dis. 2017;64(2):111-115]. 11 Test Performed by: [facility] [address] [place] [address] 12 SEE RESULT BELOW Name: STEPHANIE PRICE : [address]: Dimitry Ruiz MD Acct: [id number] Unit: [id number] AGE: 27 Location: ED Re09/18/17 SEX: F Status: DEP ER SPEC: [id number] KIKI: 09/18/[address]: Jenn WALLS REQ: [id number] RECD: 09/18/17 STATUS: WALTER LEDEZMA DR: Cindy Ruiz MD _ SOURCE: URINE SPDESC: ORDERED: Urine Culture Procedure Result Reported Site Urine Culture Final 09/19/17- 07 ML No Growth (<1,000 CFU/mL) * ML - [facility] . END OF REPORT DEPARTMENT OF PATHOLOGY, [address] [place] [address] Kevin Rebolledo M.D. Director [facility] # [id number] 13 Because ethnic data is not always [...] [address]: Dimitry Ruiz MD Acct: [id number] Unit: [id number] AGE: 27 Location: ED Re09/18/17 SEX: F Status: DEP ER SPEC: [id number] KIKI: 09/18/17 [facility] DR: Jenn WALLS REQ: [id number] RECD: 09/18/17 STATUS: COMP AZEEM DR: Cindy Ruiz MD _ SOURCE: VAGINAL SPDESC: ORDERED: [...] CONTINUED ON NEXT PAGE DEPARTMENT OF PATHOLOGY, [address] [place] [address] Kevin Rebolledo M.D. Director [facility] # [id number] Patient: STEPHANIE PRICE [id number] (Continued) Specimen: [id number] Collected: 09/18/17 Received: 09/18/17 (Continued) Procedure Result Reported Site Trichomonas: Vaginal DNA Probe Final (continued) 09/19/17- 0855 The presence or absence of T. vaginalis cannot be used as a test for therapeutic success or failure. * ML - Main Lab . END OF REPORT DEPARTMENT OF PATHOLOGY, [address] [place] [address] Kevin Rebolledo M.D. Director [facility] # [id number] 17 Result in log IU/mL is 2.79. ADDITIONAL INFORMATION The quantification range of this assay is 15 to 100,000,000 IU/mL (1.18 log to 8.00 log IU/mL). Testing was performed using the pawel HCV test ([employer] with the pawel MBDC Media0 System. Test Performed by: [facility] [address] [place] [address] 18 SEE RESULT BELOW Name: STEPHANIE PRICE : [address]: Jose Hale MD Acct: [id number] Unit: [id number] AGE: 27 Location: ED Re08/13/17 SEX: F Status: DEP ER SPEC: [id number] KIKI: 08/13/17-[address]: Calvin Hale MD REQ: [id number] RECD: 08/13/17 STATUS: WALTER LEDEZMA DR: Cindy Lee [facility] _ SOURCE: VAGINAL [...] . END OF REPORT DEPARTMENT OF PATHOLOGY, [address] [place] [address] Kevin Rebolledo M.D. Director [facility] # [id number] 19 GC/Chlamydia Source?: Endocervical Trichomonas Source: Endocervical 20 <5.0 Negative 5.0 - 25.0 Indeterminate (Repeat testing recommended after 72 hours) >25.0 Positive Perimenopausal women can display HCG levels of up to 20 mIU/mL 21 Verbal to FINN MANSFIELD by [id number] at 0837 on 08/16/17. Results read back accurately. Submitted to [facility] via ECLRS system by [email or web address] at 1411 on 08/16/17. 22 Verbal to FINN MANSFIELD by [id number] at 0837 on 08/16/17. Results read back accurately. Submitted to [facility] via ECLRS system by [id number] at 1411 on 08/16/17. 23 High reactive [...] (or dialysis) 29 SEE RESULT BELOW Name: DEESTEPHANIE A : [address]: William Barker MD Acct: [id number] Unit: [id number] AGE: 27 Location: [facility] Re06/21/17 SEX: F Status: DEP REF SPEC: [id number] KIKI: 06/21/17-1912 [facility] [address]: William Barker MD REQ: [id number] RECD: 06/21/17160 STATUS: WALTER GANN DR: Cindy Lee [facility] _ SOURCE: GAS ANTRUM SPDESC: ORDERED: Clotest Procedure Result Reported Site Clotest Final 06/22/17- 08 ML Clotest Negative * ML - Main Lab . END OF REPORT DEPARTMENT OF PATHOLOGY, [address] [place] [address] Kevin Rebolledo M.D. Director [facility] # [id number] 31 SEE RESULT BELOW Name: STEPHANIE PRICE : [address]: William Barker MD Acct: [id number] Unit: [id number] AGE: 27 Location: ENDOC Re06/21/17 SEX: F Status: DEP REF SPEC: [id number] KIKI: 06/21/17-1340 [facility] [address]: William Barker MD REQ: [id number] RECD: 06/21/17 STATUS: DESHAUN LEDEZMA DR: Cindy Lee [facility] _ ORDERED: LEVEL 4 COMMENTS: [id number] FINAL DIAGNOSIS Duodenum, biopsy: -- Benign small [...] 1147 END OF REPORT DEPARTMENT OF PATHOLOGY, [address] [place] [address] Kevin Rebolledo M.D. Director [facility] # [id number] 32 SEE RESULT BELOW Name: STEPHANIE PRICE : [address]: Cindy ARAUZ Acct: [id number] Unit: [id number] AGE: 27 Location: [facility] Re05/26/17 SEX: F Status: REG REF SPEC: [id number] KIKI: 05/26/[address]: Cindy ARAUZ REQ: [id number] RECD: 05/26/17 STATUS: COMP _ SOURCE: VAGINAL SPDESC: ORDERED: Genital Culture COMMENTS: [id number] Procedure Result Reported Site Genital Culture Final 05/28/17- 1135 ML Organism 1 YEAST Quantity 1+ Organism 2 BILLY VAGINALIS-PRESUMPTIVE Quantity 2+ Organism 3 NORMAL SALVADOR Quantity 3+ Routine genital cultures do not include selective agar for Neisseria gonorrhoeae. Molecular testing offers better test sensitivity and therefore is the preferred test methodology for identifying this organism. * ML - MAIN LAB ([facility]) . END OF REPORT * ML=Testing performed at Main Lab DEPARTMENT OF PATHOLOGY, [address] [place] [address] Kevin Rebolledo M.D. Director [facility] # [id number] 33 Presumptive Positive Presumptive positive results are [...] 36 SEE RESULT BELOW Name: STEPHANIE PRICE [place] : [address]: Naman Mo MD Acct: [id number] Unit: [id number] AGE: 27 Location: ED Re05/25/17 SEX: F Status: DEP ER SPEC: [id number] KIKI: 05/25/[address]: Naman Mo MD REQ: [id number] RECD: 05/25/17 STATUS: WALTER LEDEZMA DR: Cindy Lee R[facility]-C _ SOURCE: URINE SPDESC: ORDERED: Urine Culture Procedure Result Reported Site Urine Culture Final 05/27/17- 899 ML No growth of clinically significant organisms * ML - [facility] LAB ([facility]) . END OF REPORT * ML=Testing performed at Main Lab DEPARTMENT OF PATHOLOGY, [address] [place] [address] Kevin Rebolledo M.D. Director [facility] # [id number] 37 Because ethnic data is not always [...] [address]: Garry Batista MD Acct: [id number] Unit: [id number] AGE: 27 Location: ED Re05/11/17 SEX: F Status: DEP ER SPEC: [id number] KIKI: [address]: Garry Batista MD REQ: [id number] RECD: 05/11/17 STATUS: WALTER LEDEZMA DR: [facility] Cindy ARAUZ _ SOURCE: URINE SPDESC: ORDERED: Urine Culture Procedure Result Reported Site Urine Culture Final 05/12/17- 1652 ML No Growth (<1,000 CFU/mL) * ML - MAIN LAB ([facility]) . END OF REPORT * ML=Testing performed at Main Lab DEPARTMENT OF PATHOLOGY, [address] [place] [address] Kevin Rebolledo M.D. Director [facility] # [id number] 40 Because ethnic data is not always [...] [address]: Garry Batista MD Acct: [id number] Unit: [id number] AGE: 27 Location: ED Re05/11/17 SEX: F Status: DEP ER SPEC: [id number] KIKI: 05/11/17-2099 [facility] [address]: Garry Batista MD REQ: [id number] RECD: 05/11/17 STATUS: [facility] DR: [facility] Cindy Lee R[facility]-C _ SOURCE: BLOOD,VENO SPDESC: ORDERED: Blood Cult Procedure Result Reported Site Aerobic Culture Bottle Final 05/16/17- 2129 ML No Growth Day 5 Anaerobic Culture Bottle Final 05/16/17- 2129 ML No Growth Day 5 * ML - MAIN LAB ([facility]) . END OF REPORT * ML=Testing performed at Main Lab DEPARTMENT OF PATHOLOGY, [address] [place] [address] Kevin Rebolledo M.D. Director [facility] # [id number] 44 Telecommunications Support: [id number] [phone] Telecommunications Support: [id number] [phone] It is recognized that currently available assays for the detection of antibodies to HIV-1 and/or HIV-2 may not detect all infected individuals. HIV antibodies may be undetectable in some stages of the infection and in some clinical conditions. The performance of this assay has not been established for populations of infants or children. Assayed by Chemiluminescence Microparticle Immunoassay on the Siemens KRAFTWERKaur CP. Values obtained with different methods or [...] performed using the pawel HCV test ([employer] with the pawel MBDC Media0 System. Test Performed by: [address] [id number] 48 ADDITIONAL INFORMATION This test was performed using the [place] RealTime HCV Genotype II assay ([employer] [place], [place]). Test Performed by: [address] [id number] 49 Because ethnic data is not always [...] in selective patients <6.0%. Please refer to [place] [employer] diabetic care guidelines for further [...] REFERENCE VALUE <1.0 (Negative) Test Performed by: [address] [id number] 56 REFERENCE VALUE <=1.0 (Negative) 57 REFERENCE VALUE <20.0 (Negative) 58 Tests for antibodies to dsDNA and KEYLA antigens are not performed automatically unless the JACQUIE result is > or= 3.0 U. Studies performed at [facility] indicate that positive JACQUIE results <3.0 U are rarely accompanied by positive second order tests. Test Performed by: [facility] [address], [place] [address] 59 Serologic response to B. burgdorferi infection is not detected, but cannot rule out early infection during which low or undetectable antibody levels to B. burgdorferi may be present. If clinically indicated, a new serum specimen should be submitted in 7-14 days. Test Performed by: [facility] [address] [place] [address] 60 Because ethnic data is not always [...] [address]: Jeremy Ruvalcaba MD Acct: [id number] Unit: [id number] AGE: 26 Location: ED Re01/11/17 SEX: F Status: REG ER SPEC: [id number] KIKI: 01/11/17-1654 [facility] [address]: Tee Vela MD REQ: [id number] RECD: 01/11/17 STATUS: WALTER LEDEZMA DR: Cindy BROOKSC _ SOURCE: URINE SPDESC: ORDERED: Urine Culture Procedure Result Reported Site Urine Culture Final 01/13/17- 912 ML Mixed salvador; possible contamination. Suggest resubmission. * ML - MAIN LAB ([facility]) . END OF REPORT * ML=Testing performed at Main Lab DEPARTMENT OF PATHOLOGY, [address] [place] [address] Kevin Rebolledo M.D. Director [facility] # [id number] 66 Presumptive Positive Presumptive positive results are [...] STEPHANIE PRICE : [address]: Cindy BROOKSC Acct: [id number] Unit: [id number] AGE: 26 Location: [facility] Re09/09/16 SEX: F Status: REG REF SPEC: [id number] KIKI: 09/09/16-[address]: Cindy ARAUZ REQ: [id number] RECD: 09/10/16 STATUS: COMP _ SOURCE: VAGINAL SPDESC: ORDERED: Genital Culture COMMENTS: [id number] Procedure Result Reported Site Genital Culture Final 09/12/16- 1157 ML Organism 1 YEAST Quantity 1+ Organism 2 NORMAL SALVADOR Quantity 3+ * ML - [facility] LAB ([facility]) . END OF REPORT * ML=Testing performed at Main Lab DEPARTMENT OF PATHOLOGY, [address] [place] [address] Kevin Rebolledo M.D. Director [facility] # [id number] 71 void, hazy, dark yellow 72 SEE RESULT BELOW Name: STEPHANIE PRICE : [address]: German Hernandez MD Acct: [id number] Unit: [id number] AGE: 26 Location: ED Re04/19/16 SEX: F Status: DEP ER SPEC: [id number] KIKI: 04/19/16-[address] [facility] [address]: German Hernandez MD REQ: [id number] RECD: 04/19/16 STATUS: WALTER LEDEZMA DR: Drew Goncalves MD _ SOURCE: VAGINAL SPDESC: ORDERED: BillyYeast DNA Procedure Result Reported Site Gardnerella/Yeast: Vaginal [...] or failure. * ML - MAIN LAB ([facility]) . END OF REPORT * ML=Testing performed at Main Lab DEPARTMENT OF PATHOLOGY, [address] [place] [address] Kevin Rebolledo M.D. Director [facility] # [id number] 73 GC/Chlamydia Source?: Endocervical Trichomonas Source: Endocervical [...] 76 SEE RESULT BELOW Name: STEPHANIE PRICE ROBERTA : [address]: German Hernandez MD Acct: [id number] Unit: [id number] AGE: 26 Location: ED Re04/19/16 SEX: F Status: DEP ER SPEC: [id number] KIKI: 04/19/16 [facility] [address]: German Hernandez MD REQ: [id number] RECD: 04/19/16 STATUS: WALTER LEDEZMA DR: Drew Goncalves MD _ SOURCE: URINE SPDESC: ORDERED: Urine Culture Procedure Result Reported Site Urine Culture Final 04/20/16- 1616 ML No Growth (<1,000 CFU/mL) * ML - MAIN LAB ([facility]) . END OF REPORT * ML=Testing performed at Main Lab DEPARTMENT OF PATHOLOGY, [address] [place] [address] Kevin Rebolledo M.D. Director [facility] # [id number] 77 Telecommunications Support: [id number] FARSHAD HERNANDEZ 78 The high-risk HPV types detected by the assay include: 16, 18, 31, 33, 35, 39, 45, 51, 52, 56, 58, 59, 66, and 68. 79 SEE RESULT BELOW Name: STEPHANIE PRICE: [address]: Jeremy Godoy MD Acct: [id number] Unit: [id number] AGE: 25 Location: [facility] Re12/23/15 SEX: F Status: REG REF SPEC: [id number] KIKI: 12/23/[address]: Jeremy Godoy MD REQ: [id number] RECD: 12/24/15 STATUS: SOUT _ ORDERED: IMAGE ANALYSIS, HPV/Thin Prep COMMENTS: [id number] FINAL DIAGNOSIS Negative for Intraepithelial lesion or Malignancy A. Ectocervical/Endocervical Specimen Adequacy: Satisfactory of evaluation Transformation zone component identified Patient Information: HPV: High risk HPV RNA testing regardless of pap results. Actual Specimen Date: 12/24/15 ?: N Post Menopausal?: N Hysterectomy?: N Date Time Test Result Flag (u) Normal Range 12/23/151747 HPV RNA Negative Negative The high-risk HPV types detected by the assay include: 16, 18, 31, 33, 35, 39, 45, 51, 52, 56, 58, 59, 66, and 68. Signed (signature on file) SUNSHINE Joyner(ASC) 12/24 1611 This Pap test was evaluated with the assistance of the ThinPrep Test Imaging System. Due to cytologic findings at the visual basic programmer microscope, comprehensive manual rescreening by a Mold Checker may be required. The Pap Smear is [...] performed at Main Lab DEPARTMENT OF PATHOLOGY, [address] [place] [address] Kevin Rebolledo M.D. Director [facility] # [id number] 80 SEE RESULT BELOW Name: STEPHANIE PRICE : [address]: Jeremy Godoy MD Acct: [id number] Unit: [id number] AGE: 25 Location: [facility] Re12/23/15 SEX: F Status: REG REF SPEC: [id number] KIKI: 12/23/15 [facility] [address]: Jeremy Godoy MD REQ: [id number] RECD: 12/24/15140 STATUS: COMP _ SOURCE: VAGINAL SPDESC: ORDERED: Genital Culture COMMENTS: [id number] Procedure Result Reported Site Genital Culture Final 12/26/15- 1450 ML Organism 1 BILLY VAGINALIS - PRESUMPTIVE Quantity 3+ Organism 2 YEAST Quantity 2+ Organism 3 NORMAL SALVADOR Quantity 1+ * ML - MAIN LAB ([facility]) . END OF REPORT * ML=Testing performed at Main Lab DEPARTMENT OF PATHOLOGY, [address] [place] [address] Kevin Rebolledo M.D. Director [facility] # [id number] [facility] Severe Sepsis and Septic Shock Management Bundle Measure requires all lactic acids initially measuring >2.0 mmol/L be repeated. Procedures Date Code Description Status 07/31/2016 49682 SC/Im Injections Completed 12/23/2015 69408 Anoscopy Diagnostic Completed Encounters Type Date Location Provider Dx Diagnosis Office Visit 04/29/2018 Main Office Cindy Lee PA F11.10 Opioid abuse, 10:30a uncomplicated F31.9 Bipolar disorder, unspecified F41.9 Anxiety disorder, unspecified M54.9 Dorsalgia, unspecified J20.9 Acute bronchitis, unspecified Office Visit 02/08/2018 11:00a Main Office Cindy Lee, F41.9 Anxiety disorder, PA unspecified B18.2 Chronic viral hepatitis C N10 Acute pyelonephritis S20.219S Contusion of unspecified front wall of thorax, sequela Office Visit 09/22/2017 2:35p Main Office iCndy Lee, F41.9 Anxiety disorder, PA unspecified B18.2 Chronic [...] disorder, unspecified R31.9 Hematuria, unspecified Z79.899 Other penitentiary (current) drug therapy Office Visit 12/23/2015 2:00p Main Office Jeremy Gomez Z71.89 Other specified Magda Godoy counseling R10.84 Generalized abdominal pain R19.5 Other fecal abnormalities Z80.49 Family history of malignant neoplasm of other genital organs Plan of Treatment 04/29/2018 - Cindy Lee, PAF11.10 Opioid abuse, uncomplicatedComments:Drug abuse and addiction (heroine, crack cocaine, meth). Will refer back to [facility] fidencio. Pt agrees to go, she wants to get clean again (she had success at [facility] once before). Pt's friendwill help try to keep her away from drugs and related contacts until she is able to start rehab.Referral:[facility], Substance Use Rehab FacF31.9 Bipolar disorder, unspecifiedComments:Discussed that new meds and counseling need to be started to control her bipolar d/c, but this wouldbest be done by a psychiatrist in light of her addiction and significant other mental health issues.Patient will be going to [facility] where she will see mental health providers regularly.F41.9 Anxiety disorder, unspecifiedNew Medication:Clonazepam 1 mg - 1/ 2 - 1 tab by mouth up to three times a day as needed for anxietyComments:See # 1. Anxiety sx are severe. Rx for clonazepam, which will be held and regulated by pt's friend toavoid pt overuse.M54.9 Dorsalgia, unspecifiedNew Medication: Soma 350 mg - 1 tab three times a day as needed spasmsComments:Rx for soma for muscle spasms (pt reported this worked well for her prior, has failed numerous othermuscle relaxants). Recommended heat and gentle stretches. Avoid aggravating movements. NSAIDs as needed.J20.9 Acute bronchitis, unspecifiedNew Medication:Tessalon Perles 100 mg - 1 cap by mouth three times a day as needed coughAzithromycin 250 mg - 2 tabs by mouth daily x1 day then 1 tab by mouth daily x4 daysComments:Rx for ZPack and tessalon. Rest and fluids. Recheck if sx not improving.
[2018-06-09 12:01] VITALS: BP 134/72
[2018-06-09] MEDS ORDERED: Ketorolac INJ* 60 MG/2 ML VIAL IM ONE (12:19)
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
== END 2018-06-09 12:30 | disposition short-term general hospital (02) ==
LOC: UCEAST 11:49
DX: M54.5 Low back pain (principal); F11.10 Opioid abuse, uncomplicated; Z88.6 Allergy status to analgesic agent; Z88.1 Allergy status to other antibiotic agents; Z88.0 Allergy status to penicillin; Z88.8 Allergy status to other drugs, medicaments and biological substances; F31.9 Bipolar disorder, unspecified; B19.20 Unspecified viral hepatitis C without hepatic coma
CPT/HCPCS: 96372; 99212; G0463; J1885

== ENCOUNTER 2018-06-09 12:50 | Emergency (ER) | payer OTHER, BC ==
[2018-06-09] MEDS ORDERED: Buprenorphine TAB* 2 MG TAB.SL SL ONE ×2 (14:01→15:04)
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
[2018-06-09 15:33] VITALS: BP 116/93
== END 2018-06-09 15:56 | disposition home or self-care (01) ==
LOC: ED 12:50
DX: F11.23 Opioid dependence with withdrawal (principal)
CPT/HCPCS: 99282

== ENCOUNTER 2018-06-22 01:17 | Emergency (ER) | payer SELFPAY ==
[2018-06-22] MEDS ORDERED: NS 0.9% 1000 ML** 2,000 ML IV ONE (01:28)
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
[2018-06-22 01:42] LABS: ABS Basophils 0 10^3/ul (0-0.2); ABS Eosinophils 0.3 10^3/ul (0-0.6); ABS Lymphocytes 3.6 10^3/ul (1.0-4.8); ABS Monocytes 1.1 10^3/ul (0-0.8); ABS Neutrophils 12.2 10^3/ul (1.5-7.7); ABS Nucleated RBC 0 10^3/ul; Eosinophil % 1.9 %; Hematocrit 38 % (35-47); Hemoglobin 12.6 g/dl (12.0-16.0); Lymphocyte % 20.8 %; Mean Corpuscular HGB Conc 33 g/dl (31-36); Mean Corpuscular Hemoglobin 29 pg (27-31); Mean Corpuscular Volume 86 fL (80-97); Mean Platelet Volume 6.8 fL (7.4-10.4); Nucleated Red Blood Cells % 0.1; Platelet Count 352 10^3/ul (150-450); Red Blood Count 4.38 10^6/ul (4.00-5.40); Red Cell Distribution Width 13 % (10.5-15); White Blood Count 17.3 10^3/ul (3.5-10.8)
[2018-06-22 02:00] LABS: ALT 18 U/L (7-52); AST 20 U/L (13-39); Albumin 4.4 g/dL (3.2-5.2); Albumin/Globulin Ratio 1.6 (1-3); Alkaline Phosphatase 60 U/L (34-104); Anion Gap 6 mmol/L (2-11); Blood Urea Nitrogen 12 mg/dL (6-24); CO2 Carbon Dioxide 29 mmol/L (22-32); Calcium 9.4 mg/dL (8.6-10.3); Chloride 101 mmol/L (101-111); Creatine Kinase 213 U/L (10-223); EGFR African American 138.2 (>60); EGFR Non-African American 114.2 (>60); Globulin 2.7 g/dL (2-4); Glucose 87 mg/dL (70-100); Potassium 3.9 mmol/L (3.5-5.0); Sodium 136 mmol/L (135-145); Total Protein 7.1 g/dL (6.4-8.9)
[2018-06-22 02:07] LABS: Acetaminophen < 15 mcg/mL; Alcohol < 10 mg/dL (<10); HCG Pregnancy < 0.60 mIU/mL; Salicylate < 2.50 mg/dL (<30)
[2018-06-22 02:22] LABS: TSH (Thyroid Stimulating Horm) 1.13 mcIU/mL (0.34-5.60)
[2018-06-22] MEDS ORDERED: LORazepam INJ* 2 MG/ML 1 ML VIAL ONE ×2 (03:40→05:15)
[2018-06-22] MEDS ORDERED: LORazepam INJ* 2 MG/ML 1 ML VIAL IV PUSH ONE ×2 (03:40→05:56)
[2018-06-22 04:06] LABS: Urine Appearance Cloudy; Urine Bacteria Absent (Absent); Urine Bilirubin Negative (Negative); Urine Blood Negative (Negative); Urine Color Yellow; Urine Glucose Negative (Negative); Urine Ketones Negative (Negative); Urine Nitrite Negative (Negative); Urine Protein Negative (Negative); Urine Red Blood Cell 1+(3-5/hpf) (Absent); Urine Specific Gravity 1.005 (1.010-1.030); Urine Squamous Epithelial Cell Present (Absent); Urine Urobilinogen Negative (Negative); Urine White Blood Cell 2+(11-20/hpf) (Absent)
[2018-06-22 04:19] LABS: Barbiturates Urine Screen None Detected (None Detect); Benzodiazepine Urine Screen Presumptive Positive (None Detect); Urine Cannabinoids Screen None Detected (None Detect)
[2018-06-22] MEDS ORDERED: Haloperidol INJ IV/IM* 5 MG/ML AMP ONE (05:24)
[2018-06-22] MEDS ORDERED: Haloperidol INJ IV/IM* 5 MG/ML AMP IM ONE (05:57)
--- NOTE | 2018-06-22 08:53 | ED ---
Progress - Progress Note Progress Note: Pt is a 28 y/o F signed out from Dr. Yarbrough pending sobriety from substance abuse. Pt was brought in as 22.09. The pt is on constant observation, and Silva reports she has been sitting up, lying back, and sitting up, lying back. On entering the room, vital signs at 107bpm, 97% O2, and BP is 115/73. She denies using drugs and having suicidal or homicidal ideations. States she doesnt know who she lives with. States she doesnt have her menstrual period. Pt states she has been in the past but cannot answer whether or not she had the child. Appearance: Chronically Ill-appearing, no pain distress, well-nourished Skin: Warm, color reflects adequate perfusion, dry Head: Normal Head/Face inspection, atraumatic Eyes: Conjunctiva clear, PERRL, EOMI, no nystagmus ENT: Normal inspection Neck: Supple, no nodes, no JVD Respiratory: Lungs clear, normal breath sounds, no respiratory distress Cardio: RRR, No murmur, pulses normal, brisk capillary refill Abdomen: Soft, nontender Bowel sounds: Present Musculoskeletal: Strength Intact/ROM intact, no calf tenderness, no edema. Psychological: Drowsy, but appropriate, and in behavioral control Neuro: Drowsy, moves all extremities, no focal deficit. Reacts with "jerking" motion, as if startled, when spoken to, or touched, then relaxes. No tremor. No tonic/clonic movements. No clonus, No asterixis. Home Medications Medication Instructions Recorded Confirmed Type busPIRone TAB* [Buspar TAB*] 10 mg PO TID PRN 11/10/17 06/09/18 History diphenhydrAMINE HCl [Benadryl 50 mg PO DAILY PRN 03/24/18 06/09/18 History Allergy] Buprenorphine TAB* [Subutex TAB*] 8 mg SL BID #10 tab.sl MDD 2 06/09/18 Rx Omeprazole CAP (NF) [Prilosec CAP* 20 mg PO DAILY 06/09/18 06/09/18 History 20 MG] PARoxetine HCL TAB* [Paxil TAB*] 20 mg PO BID 06/09/18 06/09/18 History cloNIDine TAB* [Catapres 0.1 MG 0.1 mg PO TID 06/09/18 06/09/18 History TAB*] clonazePAM [Clonazepam] 1 mg PO DAILY 06/09/18 06/09/18 History traZODone TAB* [Desyrel TAB*] 100 mg PO BEDTIME PRN 06/09/18 06/09/18 History Re-Evaluation - Re-Evaluation 1st re-eval Re-Evaluation Time: 11:32 Change: Improved Comment: Pt has improved, is awake and asking for juice. Second Eval Re-Evaluation Time: 11:48 Change: Improved Comment: Pt is stating she would like to go home and wants us to call her mother. Course/Dx - Course Course Of Treatment: Pt is a 28 y/o F signed out from Dr. Yarbrough pending sobriety , and behavioral control. The pt is on constant observation. On entering the room, vital signs at 107bpm, 97% O2, and BP is 115/73. She denies using drugs and having suicidal or homicidal ideations. Urine tox was neg except for benzodiazepines, which were given by EMS enroute (versed). Pt has recently been DC'd from rehab. She is drowsy upon examination, but rousable and in behavioral control with no neuro deficit. Since pt denies SI/HI, was not brought in on 9.41 status, and is suspected substance abuse, now with increased sobriety and in behavioral control, will not do formal MHE, although notes from Sharonda Walsh, RN (mental health RN). appreciated. As of 09, the pt is put on q15 checks. The pt is awake and asking for juice as of 1132. She asked to go home and for us to call her mother at 1148. Spoke to Anitra Alvarez at 1156 at phone number [phone], who agreed to pepper picker the patient at 1207 with a social work consult placed for home evaluation. The pt will be discharged home. Mother is fearful of pt being violent in the home, and "doing drugs" again, so social worker aide consulted for home evaluation. - Diagnoses Provider Diagnoses: Agitation, Mood disorder Discharge - Sign-Out/Discharge Documenting (check all that apply): Patient Departure Receiving patient FROM: Fran Yarbrough - 0700, 06/22/18 Patient Received Moderate/Deep Sedation with Procedure: No - Discharge Plan Condition: Stable Disposition: HOME Patient Education Materials: Mood Disorders (ED) Referrals: Cindy Cormier [Primary Care Provider] - 2 Days Additional Instructions: You have been evaluated in the ER today. You did not meet criteria for admission to the hospital. You had no complaints when it was time to discharge you. Return to the ER if you any new or worsening symptoms. - Billing Disposition and Condition Condition: STABLE Disposition: Home - Attestation Statements Document Initiated by Collinsibe: Yes Documenting Scribe: Mirella You Provider For Whom Keo is Documenting (Include Credential): Dr. Catherine Conrad MD. Scribe Attestation: Mirella Nazario scribed for Dr. Catherine Conrad MD. on 06/23/18 at 0124. Scribe Documentation Reviewed: Yes Provider Attestation: The documentation as recorded by the collinsibe, Mirella You accurately reflects the service I personally performed and the decisions made by , Dr. Catherine Conrad MD. Status of Scribe Document: Viewed
[2018-06-22 13:53] VITALS: BP 140/87
== END 2018-06-22 13:51 | disposition home or self-care (01) ==
LOC: ED 01:17
DX: F39 Unspecified mood [affective] disorder (principal); R45.1 Restlessness and agitation; F19.10 Other psychoactive substance abuse, uncomplicated; Z88.0 Allergy status to penicillin; F17.210 Nicotine dependence, cigarettes, uncomplicated
CPT/HCPCS: 36415; 80053; 80307; 80320; 80329; 81003; 81015; 82550; 84443; 84702; 85025; 87086; 93005; 96361; 96372; 96374; 96376; 99284; G0480; J1630; J2060

== ENCOUNTER 2018-06-22 22:26 | Inpatient (IN) | payer OTHER ==
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
[2018-06-22 23:07] LABS: ABS Basophils 0 10^3/ul (0-0.2); ABS Eosinophils 0.1 10^3/ul (0-0.6); ABS Lymphocytes 2.3 10^3/ul (1.0-4.8); ABS Monocytes 1.1 10^3/ul (0-0.8); ABS Neutrophils 19.8 10^3/ul (1.5-7.7); ABS Nucleated RBC 0 10^3/ul; Eosinophil % 0.4 %; Hematocrit 38 % (35-47); Hemoglobin 12.7 g/dl (12.0-16.0); Mean Corpuscular HGB Conc 33 g/dl (31-36); Mean Corpuscular Hemoglobin 29 pg (27-31); Mean Corpuscular Volume 87 fL (80-97); Mean Platelet Volume 7.1 fL (7.4-10.4); Nucleated Red Blood Cells % 0; Platelet Count 371 10^3/ul (150-450); Red Blood Count 4.42 10^6/ul (4.00-5.40); Red Cell Distribution Width 14 % (10.5-15); White Blood Count 23.4 10^3/ul (3.5-10.8)
[2018-06-22 23:25] LABS: ALT 20 U/L (7-52); AST 35 U/L (13-39); Albumin 4.5 g/dL (3.2-5.2); Albumin/Globulin Ratio 1.6 (1-3); Alkaline Phosphatase 61 U/L (34-104); Anion Gap 7 mmol/L (2-11); BUN/Creatinine Ratio 18.2 (8-20); Blood Urea Nitrogen 10 mg/dL (6-24); CO2 Carbon Dioxide 25 mmol/L (22-32); Calcium 9.8 mg/dL (8.6-10.3); Chloride 99 mmol/L (101-111); EGFR African American 161.7 (>60); EGFR Non-African American 133.6 (>60); Globulin 2.9 g/dL (2-4); Glucose 114 mg/dL (70-100); Potassium 4.4 mmol/L (3.5-5.0); Sodium 131 mmol/L (135-145); Total Protein 7.4 g/dL (6.4-8.9)
[2018-06-22 23:31] LABS: HCG Pregnancy < 0.60 mIU/mL
[2018-06-22 23:48] LABS: Urine Appearance Cloudy; Urine Bacteria 1+ (Absent); Urine Bilirubin Negative (Negative); Urine Blood Negative (Negative); Urine Color Yellow; Urine Glucose Negative (Negative); Urine Ketones Trace (Negative); Urine Nitrite Negative (Negative); Urine Protein Negative (Negative); Urine Red Blood Cell 1+(3-5/hpf) (Absent); Urine Specific Gravity 1.008 (1.010-1.030); Urine Squamous Epithelial Cell Present (Absent); Urine Urobilinogen Negative (Negative); Urine White Blood Cell 1+(6-10/hpf) (Absent)
[2018-06-23] LABS: Acetaminophen < 15 mcg/mL; Alcohol < 10 mg/dL (<10); Salicylate < 2.50 mg/dL (<30)
[2018-06-23 00:04] LABS: Barbiturates Urine Screen None Detected (None Detect); Benzodiazepine Urine Screen Presumptive Positive (None Detect); Urine Cannabinoids Screen None Detected (None Detect)
[2018-06-23 00:14] LABS: TSH (Thyroid Stimulating Horm) 0.66 mcIU/mL (0.34-5.60)
[2018-06-23] MEDS ORDERED: Levofloxacin TAB* 500 MG PO ONE (00:22)
--- NOTE | 2018-06-23 09:12 | PN ---
ED Flex Patient Progress Note Date of Service: 06/22/18 Subjective: This is a 28 year-old F who is pending admission to [facility] Mental Health Unit / transfer to another psychiatric facility / discharge to home / or being observed secondary to substance abuse and mood disorder. Pt. examined in room 15 at 0910. Pt. has been standing at glass door staring. Breakfast just brought. Objective: Vitals: Most recent vital signs documented below. General NAD Laboratory: Current laboratory results documented below. Assessment: Drug abuse, mood disorder Plan: Pending admission to [facility]. Vital Signs Temp Pulse Resp BP Pulse Ox 99.1 F 107 20 143/82 99 06/23/18 08:42 06/23/18 08:42 06/23/18 08:42 06/23/18 08:42 06/23/18 08:42 Lab Results - Entire Visit 06/22/18 06/22/18 06/22/18 23:32 23:32 23:00 WBC RBC Hgb Hct MCV MCH MCHC RDW Plt Count MPV Neut % (Auto) Lymph % (Auto) [place] % (Auto) Eos % (Auto) Baso % (Auto) Absolute Neuts (auto) Absolute Lymphs (auto) Absolute Monos (auto) Absolute Eos (auto) Absolute Basos (auto) Absolute Nucleated RBC Nucleated RBC % Sodium 131 L Potassium 4.4 Chloride 99 L Carbon Dioxide 25 Anion Gap 7 BUN 10 Creatinine 0.55 Est GFR ( Amer) 161.7 Est GFR (Non-Af Amer) 133.6 BUN/Creatinine Ratio 18.2 Glucose 114 H Calcium 9.8 Total Bilirubin 0.50 AST 35 ALT 20 Alkaline Phosphatase 61 Total Protein 7.4 Albumin 4.5 Globulin 2.9 Albumin/Globulin Ratio 1.6 TSH 0.66 Beta HCG, Quant < 0.60 Urine Color Yellow Urine Appearance Cloudy Urine pH 6.0 Ur Specific Blanchard 1.008 L Urine Protein Negative Urine Ketones Trace A Urine Blood Negative Urine Nitrate Negative Urine Bilirubin Negative Urine Urobilinogen Negative Ur Leukocyte Esterase 1+ A Urine WBC (Auto) 1+(6-10/hpf) A Urine RBC (Auto) 1+(3-5/hpf) A Ur Squamous Epith Cells Present A Urine Bacteria 1+ A Hyaline Casts Present A Urine Glucose Negative Salicylates < 2.50 Urine Opiates Screen None detected Acetaminophen < 15 Ur Barbiturates Screen None detected Ur Phencyclidine Scrn None detected Ur Amphetamines Screen None detected U Benzodiazepines Scrn Presumptive positive A Urine Cocaine Screen None detected U Cannabinoids Screen None detected Serum Alcohol < 10 06/22/18 23:00 WBC 23.4 H RBC 4.42 Hgb 12.7 Hct 38 MCV 87 MCH 29 MCHC 33 RDW 14 Plt Count 371 MPV 7.1 L Neut % (Auto) 84.7 Lymph % (Auto) 10.0 [place] % (Auto) 4.7 Eos % (Auto) 0.4 Baso % (Auto) 0.2 Absolute Neuts (auto) 19.8 H Absolute Lymphs (auto) 2.3 Absolute Monos (auto) 1.1 H Absolute Eos (auto) 0.1 Absolute Basos (auto) 0 Absolute Nucleated RBC 0 Nucleated RBC % 0 Sodium Potassium Chloride Carbon Dioxide Anion Gap BUN Creatinine Est GFR ( Amer) Est GFR (Non-Af Amer) BUN/Creatinine Ratio Glucose Calcium Total Bilirubin AST ALT Alkaline Phosphatase Total Protein Albumin Globulin Albumin/Globulin Ratio TSH Beta HCG, Quant Urine Color Urine Appearance Urine pH Ur Specific Blanchard Urine Protein Urine Ketones Urine Blood Urine Nitrate Urine Bilirubin Urine Urobilinogen Ur Leukocyte Esterase Urine WBC (Auto) Urine RBC (Auto) Ur Squamous Epith Cells Urine Bacteria Hyaline Casts Urine Glucose Salicylates Urine Opiates Screen Acetaminophen Ur Barbiturates Screen Ur Phencyclidine Scrn Ur Amphetamines Screen U Benzodiazepines Scrn Urine Cocaine Screen U Cannabinoids Screen Serum Alcohol
--- NOTE | 2018-06-23 09:14 | ED ---
Progress - Progress Note Progress Note: Receiving sign out from Dr. Yarbrough, U hold and pending disposition. Pt was initially believed to be admitted to Dr. Jeronimo, however there were no admission orders so pt then became a sign out. Her condition is stable. Pt is admitted to Dr. Jeronimo with a final dx of unspecified mood disorder. Re-Evaluation - Re-Evaluation First Eval Re-Evaluation Time: 12:19 Change: Worse Comment: Pt is pacing around the room and requests Ativan. Course/Dx - Course Course Of Treatment: Ms. Alvarez was present in the emergency department when I came on shift. She was of stents ability being admitted to the mental health unit and orders have been written and she continued to require a lot of maintenance in the emergency department. She was agitated and fidgety. She told me she is not taking her Subutex. It was difficult to do a COWS as she was not cooperative. Most questions she answered with "I don't know". She was given Ativan by mouth as well as Subutex. This did not change her condition much. Eventually [facility] was able to make a decision to admit her to the hospital. She had been medically cleared prior to my arrival and I agree with that. - Diagnoses Provider Diagnoses: Unspecified mood [affective] disorder - Provider Notifications Discussed Care Of Patient With: Goyo Jeronimo Time Discussed With Above Provider: 13:10 Instructed by Provider To: Admit As Inpatient Discharge - Sign-Out/Discharge Documenting (check all that apply): Patient Departure All imaging exams completed and their final reports reviewed: No Studies Patient Received Moderate/Deep Sedation with Procedure: No - Discharge Plan Condition: Stable Disposition[place]AT[facility] [place]illing Disposition and Condition Condition: STABLE Disposition: Psychiatric Facility [facility] [place] Attestation Statements Document Initiated by Scribe: Yes Documenting Scribe: Elif Cortés Provider For Whom Scribe is Documenting (Include Credential): Dimitry Smith MD Scribe Attestation: Elif Nazario, scribed for Dimitry Smith MD on 06/23/18 at 1422. Scribe Documentation Reviewed: Yes Provider Attestation: The documentation as recorded by the Elif knutson accurately reflects the service I personally performed and the decisions made by , Dimitry Smith MD Status of Scribe Document: Viewed
[2018-06-23] MEDS ORDERED: LORazepam TAB(*) 1 MG PO ONE ×2 (09:40→11:46)
[2018-06-23] MEDS ORDERED: Buprenorp/Nalox 8-2 MG FILM 1 EACH SL FILM ONE (10:08)
[2018-06-23] MEDS ORDERED: Buprenorphine TAB* 8 MG PO ONE (10:47)
--- NOTE | 2018-06-23 10:51 | PN ---
<Yany Berrios - Last Filed: 06/23/18 10:50> Subjective - Subjective Date of Service: 06/23/18 Service Type: [id number] Hosp care 15 min low complexity Subjective: Stephanie is found standing in her room drinking a cup of water. She is trembling visibly, but she states she isn't bothered by it. She states she does not want to come in for a mental health stay. Plan - Plan Treatment Plan: Name: STEPHANIE PRICE Birthdate: 1990 [id number] Medications: Current Medications Buprenorphine/Naloxone (Suboxone 8 Mg-2 Mg Sl Film) 1 each SL FILM DAILY [facility] Haloperidol (Haldol Tab*) 5 mg PO Q6H PRN PRN Reason: AGITATION Lorazepam (Ativan Tab(*)) 1 mg PO Q4H PRN PRN Reason: Anxiety/agitation Nicotine (Nicotine Inhaler*) 10 mg INH Q2H PRN PRN Reason: CRAVING Nicotine (Nicotine Patch 21 Mg/24 Hr*) 1 patch TRANSDERM DAILY@0800 [facility] Nicotine Polacrilex (Nicotine Gum*) 2 mg PO Q2H PRN PRN Reason: CRAVING Pharmacy Profile Note (Nicotine Patch Removal Note*) 1 note PATCH OFF 2100 DANAY <KandaceManuele - Last Filed: 06/23/18 13:47> Objective - Appearance Appearance: Healthy Appearing Dysmorphic Features: No Grooming: Disheveled - Behavior Psychomotor Activities: Abnormal-Increased - Attitude and Relatedness Attitude and Relatedness: Psychotically Related Eye Contact: Fair - Speech Quantity: Terse - Mood Patient's Decription of Mood: "Upset" - Affect Observed Affect: Labile - Thought Process Patient's Thought Process: Disorganized Thought Content: No Passive Wish, No Suicidal Planning, No Homicidal Ideation, No Paranoid Ideation - Sensorium Experiencing Hallucinations: Yes Type of Hallucinations: Visual: No, Auditory: Yes, Command: No - Level of Consciousness Level of Consciousness: Agitated Orientation: Yes Intact - Impulse Control Impulse Control: Poor - Insight and Judgement Insight and Judgement: Impaired Plan - Plan Treatment Plan: Name: STEPHANIE PRICE Birthdate: 1990 [id number] Admit to [facility] on emergency status for safety, evaluation and treatment. Continued Medication Management: Continue Outpt Medication Medications: Current Medications Buprenorphine HCl (Subutex Tab*) 8 mg SL DAILY [facility] Haloperidol (Haldol Tab*) 5 mg PO Q6H PRN PRN Reason: AGITATION Lorazepam (Ativan Tab(*)) 1 mg PO Q4H PRN PRN Reason: Anxiety/agitation Nicotine (Nicotine Inhaler*) 10 mg INH Q2H PRN PRN Reason: CRAVING Nicotine (Nicotine Patch 21 Mg/24 Hr*) 1 patch TRANSDERM DAILY@0800 [facility] Last Admin: 06/23/18 11:07 Dose: 1 patch Nicotine Polacrilex (Nicotine Gum*) 2 mg PO Q2H PRN PRN Reason: CRAVING Pharmacy Profile Note (Nicotine Patch Removal Note*) 1 note PATCH OFF 2100 DANAY
[2018-06-23] MEDS: Nicotine PATCH 21 MG/24 HR* PATCH TRANSDERM SCH (11:07)
[2018-06-23] MEDS: LORazepam TAB(*) 1 MG PO PRN (18:02)
[2018-06-23] MEDS: Haloperidol TAB* 5 MG PO PRN (20:49)
[2018-06-23] MEDS: Nicotine Patch Removal NOTE PATCH OFF SCH (21:22)
[2018-06-24] MEDS: LORazepam TAB(*) 1 MG PO PRN ×4 (06:20→19:46)
[2018-06-24] MEDS: Nicotine PATCH 21 MG/24 HR* PATCH TRANSDERM SCH (06:20)
[2018-06-24] MEDS: Buprenorphine TAB* 8 MG SL SCH (08:09)
[2018-06-24] MEDS: Haloperidol TAB* 5 MG PO PRN ×3 (09:45→21:35)
[2018-06-24] MEDS: Nicotine Patch Removal NOTE PATCH OFF SCH (19:47)
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
[2018-06-25] MEDS: LORazepam TAB(*) 1 MG PO PRN ×3 (06:54→19:53)
[2018-06-25] MEDS: Nicotine PATCH 21 MG/24 HR* PATCH TRANSDERM SCH (08:34)
[2018-06-25] MEDS: Buprenorphine TAB* 8 MG SL SCH (08:34)
[2018-06-25] MEDS: Haloperidol TAB* 5 MG PO PRN (10:07)
[2018-06-25] MEDS: Nicotine Patch Removal NOTE PATCH OFF SCH (19:54)
[2018-06-25] MEDS ORDERED: traZODone TAB* 100 MG PO PRN (21:05)
[2018-06-26] MEDS: Buprenorphine TAB* 8 MG SL SCH (08:58)
[2018-06-26] MEDS: Nicotine PATCH 21 MG/24 HR* PATCH TRANSDERM SCH (08:59)
[2018-06-26] MEDS: LORazepam TAB(*) 1 MG PO PRN (08:59)
[2018-06-26] MEDS: Haloperidol TAB* 5 MG PO PRN (11:07)
--- NOTE | 2018-06-26 11:42 | PN ---
BSU: Group Therapy Note - Service Type Service Type: [id number] Group Psychotherapy - Cognitive behavioral group note: Stephanie did well in the group context, asksing appropriate questions and taking notes, but was angry and defiant in individual conversation regarding the circumstances of her admission.
[2018-06-26] MEDS: PARoxetine HCL TAB* 20 MG PO SCH (13:06)
[2018-06-26] MEDS: busPIRone TAB* 10 MG PO SCH ×2 (13:06→20:09)
--- NOTE | 2018-06-26 14:07 | PN ---
Subjective - Subjective Date of Service: 06/26/18 Service Type: [id number] Hosp care 35 min high complexity Subjective: Patient states "I don't know why I'm here!" She states she does not recall events leading to admission. Line Construction Superintendent inquires about reports of going into a neighbor's apartment. Patient denies any substance use other than prescribed buprenorphine. She states that she was likely tapered too quickly while in [facility] and returned to [place] in opiate withdrawal. She obtained new buprenorphine treatment through [facility]. She denies current probation or legal involvement. She is tremulous and states this is r/t PTSD and anxiety. Objective - Appearance Appearance: Thin Framed Dysmorphic Features: Yes Hygiene: Normal Grooming: Fairly Well Kept - Behavior Psychomotor Activities: Abnormal-Increased - tremulous Exhibits Abnormal Movement: Yes - Attitude and Relatedness Attitude and Relatedness: Cooperative Eye Contact: Good - Speech Quality: Unpressured Latencies: Normal Quantity: Appropriate - Mood Patient's Decription of Mood: "Anxious" - Affect Observed Affect: Tense Affect Consistent with: Euphoria - Thought Process Patient's Thought Process: Circumstantial, Impoverished Thought Content: Yes Paranoid Ideation, No Passive Wish, No Suicidal Planning, No Homicidal Ideation - Sensorium Experiencing Hallucinations: No, Sensorium is Clear - denies Type of Hallucinations: Visual: No, Auditory: No, Command: No - Level of Consciousness Level of Consciousness: Alert Orientation: Yes Intact, Yes Orientated to Time, Yes Orientated to Place, Yes Orientated to Person - Impulse Control Impulse Control: Poor - Insight and Judgement Insight and Judgement: Impaired - Group Participation Particating in Group Activities: Yes - Medication Management Medication Management Adherence: Yes Assessment - Assessment Merits Inpatient Hospitalization: For Immediate Safety, For Stabilization, For Discharge Planning, Pending Safe DC Plan Inpatient DSM-V Dx: F23 Clinical Impression: 28yo wf with history of polysubstance use and medication-assisted treatment who presented to ED via police after disorganized and aggressive behavior in the community. She presented with andrew psychosis and inability to care for herself. She merits hospitalization for immediate safety and stabilization. Plan - Plan Treatment Plan: Name: KAL PRICE Birthdate: 1990 [id number] continue acute intensive psychiatric treatment. resume outpatient medications of buspirone, paroxetine, trazodone and hydroxyzine. continue buprenorphine. repeat urine drug screen obtain collateral information from outpatient providers and family. Continued Medication Management: Continue Outpt Medication Medications: Current Medications Buprenorphine HCl (Subutex Tab*) 8 mg SL DAILY [facility] Last Admin: 06/26/18 08:58 Dose: 8 mg Buspirone HCl (Buspar Tab*) 10 mg PO TID [facility] Last Admin: 06/26/18 13:06 Dose: 10 mg Haloperidol (Haldol Tab*) 5 mg PO Q6H PRN PRN Reason: AGITATION Last Admin: 06/26/18 11:07 Dose: 5 mg Hydroxyzine HCl (Atarax Tab*) 50 mg PO Q4H PRN PRN Reason: ANXIETY Nicotine (Nicotine Inhaler*) 10 mg INH Q2H PRN PRN Reason: CRAVING Nicotine (Nicotine Patch 21 Mg/24 Hr*) 1 patch TRANSDERM DAILY@0800 [facility] Last Admin: 06/26/18 08:59 Dose: 1 patch Nicotine Polacrilex (Nicotine Gum*) 2 mg PO Q2H PRN PRN Reason: CRAVING Paroxetine HCl (Paxil Tab*) 20 mg PO DAILY [facility] Last Admin: 06/26/18 13:06 Dose: 20 mg Pharmacy Profile Note (Nicotine Patch Removal Note*) 1 note PATCH OFF 2100 [facility] Last Admin: 06/25/18 19:54 Dose: 1 note Trazodone HCl (Desyrel Tab*) 100 mg PO ONCE PRN PRN Reason: INSOMNIA Stop: 06/26/18 21:04 Last Admin: 06/25/18 23:09 Dose: 100 mg Trazodone HCl (Desyrel Tab*) 50 mg PO BEDTIME [facility] - Discharge Plan Discharge Plan: Inpatient Hospitalization
[2018-06-26] MEDS: hydrOXYzine HCL TAB* 50 MG PO PRN ×2 (14:10→18:36)
[2018-06-26 16:57] LABS: Barbiturates Urine Screen None Detected (None Detect); Benzodiazepine Urine Screen None Detected (None Detect); Urine Cannabinoids Screen None Detected (None Detect)
[2018-06-26] MEDS ORDERED: Mouth Piece, Nicotine* 1 EACH CARTRIDGE ONE (20:07)
[2018-06-26] MEDS: Nicotine Inhaler* 10 MG AMP INH PRN (20:09)
[2018-06-26] MEDS: traZODone TAB* 50 MG TAB PO SCH (20:09)
[2018-06-26] MEDS: Nicotine Patch Removal NOTE PATCH OFF SCH (21:11)
[2018-06-27] MEDS: hydrOXYzine HCL TAB* 50 MG PO PRN ×5 (03:45→19:45)
[2018-06-27] MEDS: busPIRone TAB* 10 MG PO SCH (07:26)
[2018-06-27] MEDS: Buprenorphine TAB* 8 MG SL SCH (07:26)
[2018-06-27] MEDS: PARoxetine HCL TAB* 20 MG PO SCH (07:26)
[2018-06-27] MEDS: Nicotine PATCH 21 MG/24 HR* PATCH TRANSDERM SCH (07:27)
[2018-06-27] MEDS ORDERED: Mouth Piece, Nicotine* 1 EACH CARTRIDGE ONE (07:52)
[2018-06-27] MEDS: Nicotine Inhaler* 10 MG AMP INH PRN ×3 (08:10→17:53)
--- NOTE | 2018-06-27 13:35 | PN ---
Subjective - Subjective Date of Service: 06/27/18 Service Type: [id number] Hosp care 25 min moderate complexity Subjective: Patient continues to endorse poor recollection of events prior to admission. She is adamant that she has not used substances and repeated a urine drug screen , which was negative. She reports having "gut feeling" that she followed leading her to interact with her neighbor. She reports having been "up for days " and states that this happens once or twice a year in the absence of substance use. She endorses "paranoia" post trauma and describes this as "always having a sense that people are watching me." She denies delusions and endorses hypervigilance and flashbacks. She reports being told at [facility] that she was misdiagnosed previously with bipolar d/o. She reports history of medication trials including lithium, depakote and quetiapine. She states agreement to discontinue serotonergic agents and start trial of lurasidone. She is notified of discharge to [facility] department after psychiatric stabilization. Objective - Appearance Appearance: Thin Framed Dysmorphic Features: Yes Hygiene: Normal Grooming: Fairly Well Kept - Behavior Psychomotor Activities: Abnormal-Increased - tremulous Exhibits Abnormal Movement: No - Attitude and Relatedness Attitude and Relatedness: Cooperative Eye Contact: Good - Speech Quality: Pressured Latencies: Normal Quantity: Appropriate - Mood Patient's Decription of Mood: "Anxious" - Affect Observed Affect: Tense Affect Consistent with: Dysphoria - Thought Process Patient's Thought Process: Coherent, Goal Directed Thought Content: No Passive Wish, No Suicidal Planning, No Homicidal Ideation, No Paranoid Ideation - Sensorium Experiencing Hallucinations: No, Sensorium is Clear Type of Hallucinations: Visual: No, Auditory: No, Command: No - Level of Consciousness Level of Consciousness: Alert Orientation: Yes Intact, Yes Orientated to Time, Yes Orientated to Place, Yes Orientated to Person - Impulse Control Impulse Control: Poor - Insight and Judgement Insight and Judgement: Fair - Group Participation Particating in Group Activities: Yes - Medication Management Medication Management Adherence: Yes Assessment - Assessment Merits Inpatient Hospitalization: For Immediate Safety, For Stabilization, To Initiate Treatment Inpatient DSM-V Dx: F23 Clinical Impression: 28yo wf with history of polysubstance use and medication-assisted treatment who presented to ED via police after disorganized and aggressive behavior in the community. She presented with andrew psychosis and inability to care for herself. She is agreeable to medication changes to better target mood and PTSD. She merits hospitalization for immediate safety and stabilization. Plan - Plan Treatment Plan: Name: KAL PRICE Birthdate: 1990 [id number] continue acute intensive psychiatric treatment. Medication changes: DC buspirone and paroxetine. Start lurasidone 60mg qeve with dinner. obtain MMPI for diagnostic clarification. obtain collateral information from outpatient providers and family. Continued Medication Management: Start Medication Medications: Current Medications Buprenorphine HCl (Subutex Tab*) 8 mg SL DAILY [facility] Last Admin: 06/27/18 07:26 Dose: 8 mg Haloperidol (Haldol Tab*) 5 mg PO Q6H PRN PRN Reason: AGITATION Last Admin: 06/26/18 11:07 Dose: 5 mg Hydroxyzine HCl (Atarax Tab*) 50 mg PO Q4H PRN PRN Reason: ANXIETY Last Admin: 06/27/18 11:25 Dose: 50 mg Lurasidone HCl (Latuda) 60 mg PO 1700 [facility] Nicotine (Nicotine Inhaler*) 10 mg INH Q2H PRN PRN Reason: CRAVING Last Admin: 06/27/18 08:10 Dose: 10 mg Nicotine (Nicotine Patch 21 Mg/24 Hr*) 1 patch TRANSDERM DAILY@0800 [facility] Last Admin: 06/27/18 07:27 Dose: 1 patch Nicotine Polacrilex (Nicotine Gum*) 2 mg PO Q2H PRN PRN Reason: CRAVING Pharmacy Profile Note (Nicotine Patch Removal Note*) 1 note PATCH OFF 2100 [facility] Last Admin: 06/26/18 21:11 Dose: 1 note Trazodone HCl (Desyrel Tab*) 50 mg PO BEDTIME [facility] Last Admin: 06/26/18 20:09 Dose: 50 mg - Discharge Plan Discharge Plan: Inpatient Hospitalization
[2018-06-27] MEDS ORDERED: Lurasidone(*) 60 MG TAB PO SCH (17:00)
[2018-06-27] MEDS: Nicotine Patch Removal NOTE PATCH OFF SCH (20:23)
[2018-06-27] MEDS: traZODone TAB* 50 MG TAB PO SCH (20:23)
[2018-06-28] MEDS: hydrOXYzine HCL TAB* 50 MG PO PRN ×3 (06:12→14:48)
[2018-06-28] MEDS: Nicotine Inhaler* 10 MG AMP INH PRN ×3 (07:24→14:48)
[2018-06-28] MEDS: Nicotine GUM* 2 MG PO PRN ×4 (07:46→17:19)
[2018-06-28] MEDS: Buprenorphine TAB* 8 MG SL SCH (08:07)
[2018-06-28] MEDS: Nicotine PATCH 21 MG/24 HR* PATCH TRANSDERM SCH (08:08)
[2018-06-28] MEDS ORDERED: Acetaminophen TAB* 325 MG PO PRN (10:52)
[2018-06-28] MEDS: Ibuprofen TAB* 600 MG PO PRN (12:02)
--- NOTE | 2018-06-28 14:14 | PN ---
Subjective - Subjective Date of Service: 06/28/18 Service Type: [id number] Hosp care 25 min moderate complexity Subjective: Collateral information obtained from family yesterday denoted patient having a relationship with a 50yo man and exhibiting erratic/destructive behavior in the home. Patient phoned her father multiple times yesterday telling him to "get down, you're being shot at." Today, patient reports much improved mood and slept well last night. She inquires about reason for anxiety and possibility of ADHD. We discuss various symptoms that overlap bipolar disorder, PTSD. She inquires about going to correction. Prison Guard assures her that stabilization of mental health is a priority. She expresses great appreciation for treatment and music writer validates her efforts. Objective - Appearance Appearance: Thin Framed Dysmorphic Features: No Hygiene: Normal Grooming: Well Kept - Behavior Psychomotor Activities: Normal Exhibits Abnormal Movement: No - Attitude and Relatedness Attitude and Relatedness: Cooperative Eye Contact: Good - Speech Quality: Pressured Latencies: Normal Quantity: Appropriate - Mood Patient's Decription of Mood: "Anxious" - Affect Observed Affect: Expansive Affect Consistent with: Euphoria - Thought Process Patient's Thought Process: Circumstantial, Impoverished Thought Content: Yes Paranoid Ideation, No Passive Wish, No Suicidal Planning, No Homicidal Ideation - Sensorium Experiencing Hallucinations: No, Sensorium is Clear Type of Hallucinations: Visual: No, Auditory: No, Command: No - Level of Consciousness Level of Consciousness: Alert Orientation: Yes Intact, Yes Orientated to Time, Yes Orientated to Place, Yes Orientated to Person - Impulse Control Impulse Control: Intact - Insight and Judgement Insight and Judgement: Fair - Group Participation Particating in Group Activities: Yes - Medication Management Medication Management Adherence: Yes Assessment - Assessment Merits Inpatient Hospitalization: For Immediate Safety, For Stabilization, Consolidate Improvements, For Discharge Planning Inpatient DSM-V Dx: F23 Clinical Impression: 28yo wf with history of polysubstance use and medication-assisted treatment who presented to ED via police after disorganized and aggressive behavior in the community. She presented with andrew psychosis and inability to care for herself. She is agreeable to medication changes to better target mood and PTSD. She merits hospitalization for immediate safety and stabilization. Plan - Plan Treatment Plan: Name: KAL PRICE Birthdate: 1990 [id number] continue acute intensive psychiatric treatment. may decrease to q30min and allow staff pass. Medication changes: titrate lurasidone to 80mg qeve with dinner. obtain MMPI for diagnostic clarification. discharge planning to include referrals to outpatient providers. Continued Medication Management: Different Medication Medications: Current Medications Acetaminophen (Tylenol Tab*) 650 mg PO Q6H PRN PRN Reason: PAIN Buprenorphine HCl (Subutex Tab*) 8 mg SL DAILY [facility] Last Admin: 06/28/18 08:07 Dose: 8 mg Haloperidol (Haldol Tab*) 5 mg PO Q6H PRN PRN Reason: AGITATION Last Admin: 06/26/18 11:07 Dose: 5 mg Hydroxyzine HCl (Atarax Tab*) 50 mg PO Q4H PRN PRN Reason: ANXIETY Last Admin: 06/28/18 10:16 Dose: 50 mg Ibuprofen (Motrin Tab*) 600 mg PO Q6H PRN PRN Reason: PAIN Last Admin: 06/28/18 12:02 Dose: 600 mg Lurasidone HCl (Latuda) 80 mg PO 1700 [facility] Nicotine (Nicotine Inhaler*) 10 mg INH Q2H PRN PRN Reason: CRAVING Last Admin: 06/28/18 11:50 Dose: 10 mg Nicotine (Nicotine Patch 21 Mg/24 Hr*) 1 patch TRANSDERM DAILY@0800 [facility] Last Admin: 06/28/18 08:08 Dose: 1 patch Nicotine Polacrilex (Nicotine Gum*) 2 mg PO Q2H PRN PRN Reason: CRAVING Last Admin: 06/28/18 13:30 Dose: 2 mg Pharmacy Profile Note (Nicotine Patch Removal Note*) 1 note PATCH OFF 2100 [facility] Last Admin: 06/27/18 20:23 Dose: 1 note Trazodone HCl (Desyrel Tab*) 50 mg PO BEDTIME [facility] Last Admin: 06/27/18 20:23 Dose: 50 mg - Discharge Plan Discharge Plan: Inpatient Hospitalization
--- NOTE | 2018-06-28 15:52 | PN ---
BSU: Group Therapy Note - Service Type Service Type: [id number] Group Psychotherapy - Medication Education Group: Patient was attentive and participatory in group, and remained in good behavioral control. Patient expressed positive insights regarding relevant treatment interventions. Patient stated understanding of material discussed and had appropriate questions.
[2018-06-28] MEDS: Lurasidone(*) 80 MG TAB PO SCH (16:53)
[2018-06-28] MEDS: traZODone TAB* 50 MG TAB PO SCH (20:23)
[2018-06-28] MEDS: Nicotine Patch Removal NOTE PATCH OFF SCH (20:23)
[2018-06-29] MEDS: Haloperidol TAB* 5 MG PO PRN ×3 (01:31→23:29)
[2018-06-29] MEDS: hydrOXYzine HCL TAB* 50 MG PO PRN ×6 (01:31→23:30)
[2018-06-29] MEDS: Nicotine Inhaler* 10 MG AMP INH PRN ×3 (05:10→13:24)
[2018-06-29] MEDS: Nicotine PATCH 21 MG/24 HR* PATCH TRANSDERM SCH (08:26)
[2018-06-29] MEDS: Buprenorphine TAB* 8 MG SL SCH (08:26)
[2018-06-29] MEDS: Nicotine GUM* 2 MG PO PRN ×4 (08:28→15:32)
--- NOTE | 2018-06-29 11:39 | PN ---
BSU: Group Therapy Note - Service Type Service Type: [id number] Group Psychotherapy - Cognitive Behavioral Group Therapy ( CBT):Patient was attentive and participatory in CBT programming this morning, and remained in good behavioral control. Patient expressed positive insights regarding relevant treatment interventions and goals.
--- NOTE | 2018-06-29 15:03 | PN ---
Subjective - Subjective Date of Service: 06/29/18 Service Type: 06356 Hosp care 15 min low complexity Subjective: patient is euthymic with bright affect. she is participating in groups and programming. She denies delusional thoughts and has not presented, to our knowledge, with bizarre behavior. She is tolerating titration of lurasidone. She requests to increase trazodone due to poor sleep last night and history of improved sleep with dose of 100mg. She denies SI or urges for self harm. Objective - Appearance Appearance: Thin Framed Dysmorphic Features: No Hygiene: Normal Grooming: Well Kept - Behavior Psychomotor Activities: Normal Exhibits Abnormal Movement: No - Attitude and Relatedness Attitude and Relatedness: Cooperative Eye Contact: Good - Speech Quality: Unpressured Latencies: Normal Quantity: Appropriate - Mood Patient's Decription of Mood: "Good" - Affect Observed Affect: Good Affect Consistent with: Euthymia - Thought Process Patient's Thought Process: Coherent, Goal Directed Thought Content: No Passive Wish, No Suicidal Planning, No Homicidal Ideation, No Paranoid Ideation - Sensorium Experiencing Hallucinations: No, Sensorium is Clear Type of Hallucinations: Visual: No, Auditory: No, Command: No - Level of Consciousness Level of Consciousness: Alert Orientation: Yes Intact, Yes Orientated to Time, Yes Orientated to Place, Yes Orientated to Person - Impulse Control Impulse Control: Intact - Insight and Judgement Insight and Judgement: Fair - Group Participation Particating in Group Activities: Yes - Medication Management Medication Management Adherence: Yes Assessment - Assessment Merits Inpatient Hospitalization: For Immediate Safety, For Stabilization, For Discharge Planning Inpatient DSM-V Dx: F23 Clinical Impression: 28yo wf with history of polysubstance use and medication-assisted treatment who presented to ED via police after disorganized and aggressive behavior in the community. She presented with andrew psychosis and inability to care for herself. She is agreeable to medication changes to better target mood and PTSD. She merits hospitalization for immediate safety and discharge planning. Plan - Plan Treatment Plan: Name: KAL PRICE Birthdate: 1990 [id number] continue acute intensive psychiatric treatment. may decrease to q30min and allow staff pass. Medication changes: continue lurasidone to 80mg qeve with dinner. obtain MMPI for diagnostic clarification- may hold due to low literacy level. discharge planning to include referrals to outpatient providers. Medications: Current Medications Acetaminophen (Tylenol Tab*) 650 mg PO Q6H PRN PRN Reason: PAIN Buprenorphine HCl (Subutex Tab*) 8 mg SL DAILY [facility] Last Admin: 06/29/18 08:26 Dose: 8 mg Haloperidol (Haldol Tab*) 5 mg PO Q6H PRN PRN Reason: AGITATION Last Admin: 06/29/18 11:16 Dose: 5 mg Hydroxyzine HCl (Atarax Tab*) 50 mg PO Q4H PRN PRN Reason: ANXIETY Last Admin: 06/29/18 13:24 Dose: 50 mg Ibuprofen (Motrin Tab*) 600 mg PO Q6H PRN PRN Reason: PAIN Last Admin: 06/28/18 12:02 Dose: 600 mg Lurasidone HCl (Latuda) 80 mg PO 1700 [facility] Last Admin: 06/28/18 16:53 Dose: 80 mg Nicotine (Nicotine Inhaler*) 10 mg INH Q2H PRN PRN Reason: CRAVING Last Admin: 06/29/18 13:24 Dose: 10 mg Nicotine (Nicotine Patch 21 Mg/24 Hr*) 1 patch TRANSDERM DAILY@0800 [facility] Last Admin: 06/29/18 08:26 Dose: 1 patch Nicotine Polacrilex (Nicotine Gum*) 2 mg PO Q2H PRN PRN Reason: CRAVING Last Admin: 06/29/18 13:24 Dose: 2 mg Pharmacy Profile Note (Nicotine Patch Removal Note*) 1 note PATCH OFF 2100 [facility] Last Admin: 06/28/18 20:23 Dose: 1 note Trazodone HCl (Desyrel Tab*) 100 mg PO BEDTIME [facility] - Discharge Plan Discharge Plan: Inpatient Hospitalization Outpatient Program: [facility]
[2018-06-29] MEDS: Lurasidone(*) 80 MG TAB PO SCH (17:07)
[2018-06-29] MEDS: Ibuprofen TAB* 600 MG PO PRN (17:23)
[2018-06-29] MEDS ORDERED: traZODone TAB* 50 MG TAB PO SCH (21:00)
[2018-06-29] MEDS: Nicotine Patch Removal NOTE PATCH OFF SCH (21:16)
[2018-06-30] MEDS: Buprenorphine TAB* 8 MG SL SCH (07:31)
[2018-06-30] MEDS: Nicotine PATCH 21 MG/24 HR* PATCH TRANSDERM SCH (07:32)
[2018-06-30] MEDS: Nicotine GUM* 2 MG PO PRN ×3 (07:34→12:18)
[2018-06-30] MEDS: hydrOXYzine HCL TAB* 50 MG PO PRN ×2 (07:41→11:51)
[2018-06-30] MEDS: Haloperidol TAB* 5 MG PO PRN (08:47)
[2018-06-30] MEDS: Ibuprofen TAB* 600 MG PO PRN (09:33)
[2018-06-30 10:18] VITALS: BP 103/82
[2018-06-30] MEDS: Nicotine Inhaler* 10 MG AMP INH PRN (10:42)
--- NOTE | 2018-06-30 11:11 | PN ---
BSU: Group Therapy Note - Service Type Service Type: 84853 Group Psychotherapy - Cognitive Behavioral Group Therapy ( CBT):Patient was attentive and participatory in CBT programming this morning, and remained in good behavioral control. Patient expressed positive insights regarding relevant treatment interventions and goals.
== END 2018-06-30 12:36 | DRG 751 ==
LOC: ED 22:26 → BSU 06-23 10:22
PROVIDERS: ADMIT Psychiatry & Neurology Psychiatry; ATTEND Psychiatry & Neurology Psychiatry
DX: F23 Brief psychotic disorder (principal); F39 Unspecified mood [affective] disorder; K58.9 Irritable bowel syndrome, unspecified; F17.210 Nicotine dependence, cigarettes, uncomplicated; F11.21 Opioid dependence, in remission; F14.21 Cocaine dependence, in remission; Z59.0 Homelessness; Z86.19 Personal history of other infectious and parasitic diseases; Z81.8 Family history of other mental and behavioral disorders; Z81.3 Family history of other psychoactive substance abuse and dependence
CPT/HCPCS: 36415; 80053; 80061; 80307; 80320; 80329; 81003; 83036; 84443; 84702; 85025; 87040; 90853; 99222; 99231; 99232; 99233; 99238; 99285; A9270-GY; G0480

== ENCOUNTER 2018-07-04 08:46 | Emergency (ER) | payer OTHER ==
[2018-07-04] MEDS ORDERED: Nicotine Inhaler* 10 MG AMP INH PRN (08:59)
--- NOTE | 2018-07-04 09:03 | ED ---
Psychiatric Complaint - HPI Summary HPI Summary: Pt is a 28 y/[facility] who presents to the ED c/o hallucinations. As per police, she was brought in by her mother to the [facility] station. Pt stated to them can you take me to the hospital? I need to be seen. She was rapidly speaking and was visibly anxious. Pt told police that there was someone going to burn her house down and that someone is in the trunk of my car. She also stated that her boyfriend Juan was going to see her and stated that he was there with them, however he was not and police note this as a visual hallucination. As per nurse s note, she stated that she is having an anxiety attack or mental breakdown. Pt was in detention on 06/22/18 for assault to the third degree. She feels very anxious but is calm. Pt requests medication for anxiety. Pt denies any SI, HI, LINTON, dizziness, sore throat, ear ache, CP, SOB, cough, dysuria, hematuria, abdominal pain, N/V, or sore/cuts on extremities. She states she doesnt feel safe around her mother because she yells and puts me down. Pt does not want mother to come to the room. PMHx anxiety, depression, panic disorder, bipolar disorder, schizophrenia, and substance abuse. She has a hx of cocaine, heroin, and methamphetamine use. Pt denies any recent drug use. States she has been on Subutex through [facility], and has been "clean" x 49 days. Pt smokes ppd and denies any alcohol use. Vital signs: HR 139 bpm, BP 147/89, O2 sat 98%, temperature 100.4 degrees F. Pt takes 10 mg Buspirone, 50 mg Hydroxyzine, 80 mg Latuda, 8 mg Subutex, and Tylenol. Pt states she took her am subutex 8mg. She gets the first three medications from [facility], and the Subutex from [facility]. Pt denies seeing a psychiatrist. LNMP 06/28/18, and she denies any . Pt has the Nexplanon implant. - History Of Current Complaint Chief Complaint: EDPsychosocial Hx Obtained From: Patient, EMS - [facility] police Hx Last Menstrual Period: Nexplanon Onset/Duration: Gradual Onset, Still Present Timing: Constant Severity Initially: Severe Severity Currently: Moderate Character: Anxious Aggravating Factor(s): Nothing Alleviating Factor(s): Nothing Associated Signs And Symptoms: Positive: Hallucinating Related History: Positive For: Prior Psychiatric Issues Has Suicidal: Denies: Thoughts Has Homicidal: Denies: Thoughts - Allergies/Home Medications Allergies/Adverse Reactions: Allergies Allergy/AdvReac Type Severity Reaction Status Date / Time amoxicillin [From Augmentin] Allergy Hives Verified 06/09/18 12:59 clavulanic acid Allergy Hives Verified 06/09/18 12:59 [From Augmentin] naloxone [From Suboxone] Allergy swelling Verified 06/09/18 12:59 hives Penicillins Allergy Hives Verified 06/09/18 12:59 CAT Allergy Hives Uncoded 03/24/18 10:59 Home Medications: Home Medications busPIRone TAB* [Buspar TAB*] 10 mg PO BID 07/04/18 [History Confirmed 07/04/18] PMH/Surg Hx/FS Hx/Imm Hx Endocrine/Hematology History: Denies: Hx Diabetes, Hx Thyroid Disease Cardiovascular History: Reports: Other Cardiovascular Problems/Disorders - HEART MURMUR Denies: Hx Hypertension, Hx Pacemaker/ICD Respiratory History: Denies: Hx Asthma, Hx Chronic Obstructive Pulmonary Disease (COPD) GI History: Reports: Hx Crohn's Disease - possible, Hx Gastrointestinal Bleed, Hx Irritable Bowel Denies: Hx Ulcer History: Reports: Other Problems/Disorders - hematuria Denies: Hx Renal Disease Musculoskeletal History: Reports: Hx Back Problems - muscle spasms Sensory History: Denies: Hx Contacts or Glasses, Hx Hearing Aid Opthamlomology History: Denies: Hx Contacts or Glasses Psychiatric History: Reports: Hx Anxiety, Hx Depression, Hx Panic Disorder - ANXIETY/DEPRESSION, Hx Bipolar Disorder, Hx Substance Abuse Denies: Hx Eating Disorder, Hx of Violent Episodes Against Others - Surgical History Surgery Procedure, Year, and Place: 06/14/14 - Immunization History Date of Tetanus Vaccine: unk Infectious Disease History: No Infectious Disease History: Denies: Hx Clostridium Difficile, Hx Hepatitis, Hx Human Immunodeficiency Virus (HIV), Hx of Known/Suspected MRSA, Hx Shingles, Hx Tuberculosis, Hx Known/ Suspected VRE, Hx Known/Suspected VRSA, History Other Infectious Disease, Traveled Outside the [place] in Last 30 Days - Family History Known Family History: Positive: Cardiac Disease - RBBB (mother), Hypertension, Diabetes, Other - COLON and CERVICAL CA - Social History Lives: With Family - mother Alcohol Use: None Hx Substance Use: Yes Substance Use Type: Reports: Cocaine, Heroin, Synthetic Drugs Substance Use Comment - Amount & Last Used: hx of meth use/ states clean through [facility] x 49 days as of 07/04/18 Hx Tobacco Use: Yes Smoking Status (MU): Heavy Every Day Tobacco Smoker Type: Cigarettes Amount Used/How Often: 1/2 PPD Length of Time of Smoking/Using Tobacco: 6 YEARS Have You Smoked in the Last Year: Yes Review of Systems Positive: Fever - noted initially, then repeats in ED not febrile Eyes: Negative ENT: Negative Negative: Sore Throat, Ear Ache Negative: Chest Pain Negative: Shortness Of Breath, Cough Negative: Abdominal Pain, Vomiting, Nausea Positive: no symptoms reported. Negative: dysuria, hematuria Negative: Other - neg sores/cuts on extremities Neurological: Other - NEGATIVE: dizziness Negative: Headache Positive: Anxious, Other - hallucinations, NEGATIVE: SI, HI All Other Systems Reviewed And Are Negative: Yes Physical Exam - Summary Physical Exam Summary: Appearance: Well-appearing, no pain distress, well-nourished, febrile with initial temperature, repeat 100.4 Skin: Warm, color reflects adequate perfusion, dry Head: Normal Head/Face inspection, atraumatic Eyes: Conjunctiva clear ENT: Normal inspection Neck: Supple, no nodes, no JVD Respiratory: Lungs clear, normal breath sounds, no respiratory distress Cardio: tachycardic but regular rhythm, No murmur, pulses normal, brisk capillary refill Abdomen: Soft, nontender Bowel sounds: Present Musculoskeletal: Strength Intact/ROM intact, no calf tenderness, no edema. Psychological: Rapid speech but calm, cooperative, and coherent, denies SI or HI Neuro: Alert, muscle tone normal, no focal deficit, gait normal Triage Information Reviewed: Yes Vital Signs On Initial Exam: Initial Vitals Temp Pulse Resp BP Pulse Ox 100.2 F 142 22 142/92 97 07/04/18 08:46 07/04/18 08:46 07/04/18 08:46 07/04/18 08:46 07/04/18 08:46 Vital Signs Reviewed: Yes Diagnostics - Vital Signs Vital Signs Temp Pulse Resp BP Pulse Ox 07/04/18 08:46 100.2 F 142 22 142/92 97 - Laboratory Result Diagrams: 07/04/18 09:19 07/04/18 09:19 Lab Statement: Any lab studies that have been ordered have been reviewed, and results considered in the medical decision making process. Re-Evaluation - Re-Evaluation First Eval Re-Evaluation Time: 11:23 Change: Unchanged Comment: Pt is walking around because she is anxious, and is instructed to stay seated on the stretcher. Vitals: HR 123 bpm, BP 129/75. Second Eval Re-Evaluation Time: 13:53 Change: Improved Comment: Pt is medically cleared for a [facility]HE. Third Eval Re-Evaluation Time: 18:42 Change: Improved Comment: Pt states she now feels safe going home with her mother. Course/Dx - Course Course Of Treatment: Pt is a 28 y/o female brought in by police who presents to the ED c/o hallucinations and anxiety. PMHx anxiety, depression, panic disorder , bipolar disorder, schizophrenia, and substance abuse. She has a hx of cocaine , heroin, and methamphetamine use. A physical exam revealed febrile with initial temperature repeat 100.4, tachycardic but regular rhythm, Rapid speech but calm, cooperative, and coherent, denies SI or HI. UA revealed positive wbc's , rbc's and is sent for culture. Valproic acid and Amory are undetectable. Pt received Ativan 2mg x 1, and 1mg x 1 while in the ED, and her usual medications. Per Dr. Farnsworth at 1900, pt is a safe discharge. Pt's mother will come for her. Final dx is hallucinations and generalized anxiety disorder. She is agreeable with this plan. 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 Discharge - Sign-Out/Discharge Documenting (check all that apply): Sign-Out Patient Signing out patient TO: Fran Yarbrough Patient Received Moderate/Deep Sedation with Procedure: No - Discharge Plan Patient Education Materials: Anxiety (ED) Referrals: Rosa ARAUZ,Cindy Lynn [Primary Care Provider] - 2 Days (2) - Attestation Statements Document Initiated by Scribe: Yes Documenting Scribe: Elif Cortés Provider For Whom Scribe is Documenting (Include Credential): Catherine Conrad MD Scribe Attestation: Elif Nazario, scribed for Catherine Conrad MD on 07/04/18 at 1919. Scribe Documentation Reviewed: Yes Provider Attestation: The documentation as recorded by the Elif knutson accurately reflects the service I personally performed and the decisions made by me, Catherine Conrad MD Status of Scribe Document: Viewed
[2018-07-04] MEDS ORDERED: Nicotine PATCH 14 MG/24 HR* PATCH TRANSDERM ONE (09:15)
[2018-07-04] MEDS ORDERED: Acetaminophen TAB* 325 MG PO ONE (09:16)
[2018-07-04] MEDS ORDERED: hydrOXYzine HCL TAB* 50 MG PO ONE (09:19)
[2018-07-04] MEDS ORDERED: buPROPion TAB* 100 MG PO ONE (09:20)
[2018-07-04 09:28] LABS: ABS Basophils 0 10^3/ul (0-0.2); ABS Eosinophils 0.1 10^3/ul (0-0.6); ABS Monocytes 0.7 10^3/ul (0-0.8); ABS Neutrophils 8.1 10^3/ul (1.5-7.7); ABS Nucleated RBC 0 10^3/ul; Eosinophil % 1.2 %; Hematocrit 36 % (33-41); Hemoglobin 12.1 g/dL (12.0-16.0); Mean Corpuscular HGB Conc 34 g/dL (31-36); Mean Corpuscular Hemoglobin 29 pg (27-31); Mean Corpuscular Volume 86 fL (80-97); Nucleated Red Blood Cells % 0.1; Platelet Count 224 10^3/uL (150-450); Red Blood Count 4.13 10^6 /uL (3.70-4.87); Red Cell Distribution Width 14 % (10.5-15); White Blood Count 10.9 10^3/uL (3.5-10.8)
--- OUTSIDE RECORDS SUMMARY | 2018-07-04 09:36 | XMS REPORT | Continuity of Care Document ---
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 None Detect Urine Cocaine Screen Presumptive Posi <SEE NOTE> Abnormal None Detect 45 Urine Opiates Screen None Detected None Detect Urine Phencyclidine Screen None Detected None Detect 46 GC/Chlamydia 05/25/2017 [facility] Chlamydia Negative Negative Amplified Rna [phone] trachomatis Rna Neisseria gonorrhoeae (GC) Rna Negative Negative Laboratory test 05/25/2017 [facility] Urine Culture And SEE RESULT 47 finding [phone] Sensitivities BELOW CBC Auto Diff 05/25/2017 [facility] White Blood Count 9.2 10^3/uL N 3.5-10 [phone] .[phone] Red Blood Count 4.56 10^6/uL N [...] Cells % 0 Comp Metabolic Panel 05/25/2017 [facility] Sodium 139 mmol/L N 133- 145 [phone] Potassium 3.9 mmol/L N 3.5-5.0 Chloride 104 [...] Egfr Non- 92.7 >60 Egfr 119.3 >60 48 Laboratory 05/25/2017 [facility] Hepatitis C High Abnormal Nonreactive 49 test finding [phone] Antibody Reactive Urinalysis 05/11/2017 [facility] Urine Color Yellow Profile [phone] Urine Appearance Cloudy Urine Specific [place] 1.010 N 1.010-1.030 Urine pH 7.0 N [...] Urine Yeast Present Abnormal Absent GC/Chlamydia 05/11/2017 [facility] Chlamydia Negative Negative Amplified Rna [phone] trachomatis Rna Neisseria gonorrhoeae (GC) Rna Negative Negative Laboratory test 05/11/2017 [facility] Urine Culture And SEE RESULT 50 finding [phone] Sensitivities BELOW CBC Auto Diff 05/11/2017 [facility] White Blood Count 11.0 High 3.5- 5 [phone] 10^3/uL 0.8 Red Blood Count 4.39 10^6/uL [...] Cells % 0 Comp Metabolic Panel 05/11/2017 [facility] Sodium 135 mmol/L N 133- 145 [phone] Potassium 3.8 mmol/L N 3.5-5.0 Chloride 101 [...] Egfr Non- 113.1 >60 Egfr 145.4 >60 51 Laboratory test finding 05/11/2017 [facility] Lipase 24 U/L N 11.0- 82.0 [phone] C Reactive Protein < 1.00 mg/L N < 5.00 52 HCG < 0.60 mIU/mL 53 Blood Culture SEE RESULT BELOW 54 Rapid Influenza A 04/19/2017 [facility] Influenza A NEGATIVE Negative 55 & B Molecular [phone] Molecular Influenza B Molecular NEGATIVE Negative Laboratory test 04/19/2017 [facility] Rapid Strep Negative Negative 56 finding [phone] Molecular HIV 1/2 AB 04/08/2017 [facility] HIV 1 2 Nonreactive Nonreactive 57 Evaluation [phone] Antibody Laboratory test 04/08/2017 [facility] Hepatitis C 198873 IU/mL Undetected 58 finding [phone] Rna Quant Hepatitis C Genotype 1a Undetected 59 Comp Metabolic Panel 04/05/2017 [facility] Sodium 138 mmol/L N 133-145 [address] [place], [place] [id number] [phone] Potassium 4.2 mmol/L N 3.5-5.0 Chloride 106 [...] Egfr Non- 100.3 >60 Egfr 129.0 >60 60 Hepatitis 04/05/2017 [facility] Hepatitis B Nonreactive Nonreactive Acute Panel [address] [place] [address] Antigen [phone] Hepatitis B Core IgM Nonreactive Nonreactive Hepatitis A AB IgM Nonreactive Nonreactive Hepatitis C Antibody High Reactive Abnormal Nonreactive 61 CBC Auto Diff 04/04/2017 [facility] White Blood Count 8.3 10^3/uL N 3.5-10.8 [phone] Red Blood Count 4.41 10^6/uL N 4.0-5.4 [...] Blood Cells % 0.1 Laboratory test 04/04/2017 [facility] Hemoglobin A1c 5.1 % N 4.0-5.6 62 finding [phone] (Glyco HGB) Comp Metabolic 04/04/2017 [facility] Sodium 133 mmol/L N 133-145 Panel [phone] Potassium 4.4 mmol/L N 3.5-5.0 Chloride 102 [...] Egfr Non- 115.1 >60 Egfr 148.1 >60 63 Laboratory test 04/04/2017 [facility] Creatine Kinase(CK) 105 U/L N 10-223 finding [phone] TSH (Thyroid Stim Horm) 0.88 mcIU/mL N 0.34-5.60 Vitamin B12 984 pg/mL High [phone] 64 Ssa/SSB Abs Igg 04/04/2017 [facility] SS-A/Ro Antibody <0.2 U 65 [phone] SS-B/La Antibody <0.2 U 66 Connective Tissue Panel 04/04/2017 [facility] Anti-Nuclear Antibody 0.8 U 67 [phone] Cyclic Citrullinated Peptide <15.6 U 68 Interpretation See Comment 69 Laboratory test 04/04/2017 [facility] Lyme Disease Negative Negative 70 finding [phone] Serology CBC Auto Diff 01/11/2017 [facility] White Blood 9.6 10^3/uL N 3.5- 10.8 [phone] Count Red Blood Count 4.41 10^6/uL N [...] % 0.1 N Comp Metabolic Panel 01/11/2017 [facility] Sodium 137 mmol/L N 133- 145 [phone] Potassium 4.2 mmol/L N 3.5-5.0 Chloride 105 [...] 80.0 N >60 Egfr 102.9 N >60 71 Laboratory test finding 01/11/2017 [facility] Acetaminophen < 15 g/ mL N 72 [phone] Alcohol < 10 mg/dL N <10 Salicylate < 2.50 mg/dL N <30 TSH (Thyroid Stim Horm) 1.01 mcIU/mL N 0.34-5.60 Urine Drug 01/11/2017 [facility] Amphetamine Ur None Detected N None Detect SCR ED & [phone] Screen Pain Clinic Barbiturates Urine Screen None Detected N None Detect Benzodiazepine Urine Screen None Detected N None Detect Urine Cannabinoids Screen None Detected N None Detect Urine Cocaine Screen Presumptive Posi <SEE NOTE> Abnormal None Detect 73 Urine Opiates Screen Presumptive Posi <SEE NOTE> Abnormal None Detect 74 Urine Phencyclidine Screen None Detected N None Detect 75 Urinalysis Profile 01/11/2017 [facility] Urine Color Alexsandra N [phone] Urine Appearance Cloudy N Urine Specific [place] 1.026 N 1.010-1.030 Urine pH 7.0 N [...] Crystals Present Abnormal Absent Laboratory test 01/11/2017 [facility] Urine Culture And SEE RESULT 76 finding [phone] Sensitivities BELOW Urinalysis 11/20/2016 [facility] Urine Color Colorless N Profile [phone] Urine Appearance Clear N Urine Specific [place] 1.002 Low 1.010-1.030 Urine pH 6.0 N [...] Bacteria Absent N Absent Urine Drug 11/20/2016 [facility] Amphetamine Ur None Detected N None Detect SCR ED & [phone] Screen Pain Clinic Barbiturates Urine Screen None Detected N None Detect Benzodiazepine Urine Screen None Detected N None Detect Urine Cannabinoids Screen None Detected N None Detect Urine Cocaine Screen Presumptive Posi <SEE NOTE> Abnormal None Detect 77 Urine Opiates Screen None Detected N None Detect Urine Phencyclidine Screen None Detected N None Detect 78 CBC Auto Diff 11/20/2016 [facility] White Blood Count 10.8 10^3/uL N 3.5-10.8 [phone] Red Blood Count 4.62 10^6/uL N 4.0-5.4 [...] % 0.1 N Comp Metabolic Panel 11/20/2016 [facility] Sodium 138 mmol/L N 133- 145 [phone] Potassium 4.0 mmol/L N 3.5-5.0 Chloride 106 [...] 116.1 N >60 Egfr 149.3 N >60 79 Laboratory test finding 11/20/2016 [facility] Acetaminophen < 15 g/ mL N 80 [phone] Alcohol 77 mg/dL High <10 Salicylate < 2.50 mg/dL N <30 TSH (Thyroid Stim Horm) 0.88 mcIU/mL N 0.34-5.60 Urine Drug Screen Inhouse 11/02/2016 In House Ua Cocaine - Ua Opiates - Ua Amphetamines - Urine Methanphetamines - Urine Benzodiazepines QN [place] - Urine Oxycodone QL + Urine Drug Screen Inhouse 10/07/2016 In House Ua Cocaine - Ua Opiates - Ua Amphetamines - Urine Methanphetamines - Urine Benzodiazepines QN [place] - Urine Oxycodone QL + Laboratory test 09/09/2016 [facility] Culture Genital & SEE RESULT 81 finding [phone] Sensitivity BELOW Urine Drug Screen 09/09/2016 In House Ua Cocaine - Inhouse Ua Opiates + Ua Amphetamines - Urine Methanphetamines - Urine Benzodiazepines QN [place] - Urine Oxycodone QL + Urine Drug Screen Inhouse 08/03/2016 In House Ua Cocaine _ Ua Opiates + Ua Amphetamines _ Urine Methanphetamines _ Urine Benzodiazepines QN [place] _ Urine Oxycodone QL + Laboratory test finding 07/29/2016 In [place] Culture Throat Rapid positive Screen Urine Drug Screen Inhouse 07/13/2016 In House Ua Cocaine + Ua Opiates + Ua Amphetamines - Urine Methanphetamines - Urine Benzodiazepines QN [place] - Urine Oxycodone QL + Ua Inhouse 06/17/2016 In House Ua Glucose - 82 Ua Bilirubin - Ua Ketones - Ua Specific [place] 1.030 Ua Blood 3+ Ua PH 5.0 Ua Protein - Ua Urobilinogen - Ua Nitrite - Ua Leukocytes - Laboratory 04/19/2016 [facility] Gardnerella/Yeast: SEE RESULT 83 test finding [phone] Vaginal Dna BELOW GC/Chlamydia 04/19/2016 [facility] Chlamydia trachomatis Negative N Negative Amplified Rna [phone] Rna Neisseria gonorrhoeae (GC) Rna Negative N Negative Laboratory test 04/19/2016 [facility] Trichomonas Negative N Negative 84 finding [phone] Vaginalis Rna Urinalysis 04/19/2016 [facility] Urine Color Alexsandra N Profile [phone] Urine Appearance Cloudy N Urine Specific [place] 1.030 N 1.010-1.030 Urine pH 5.0 N [...] Present Abnormal Absent CBC Auto Diff 04/19/2016 [facility] White Blood 12.6 10^3/uL High 3.5 -10.8 [phone] Count Red Blood Count 4.62 10^6/uL N [...] % 0 N Comp Metabolic Panel 04/19/2016 [facility] Sodium 134 mmol/L N 133- 145 [phone] Potassium 3.5 mmol/L N 3.5-5.0 Chloride 105 [...] 99.5 N >60 Egfr 128.0 N >60 85 Laboratory test finding 04/19/2016 [facility] HCG < 0.60 mIU/ mL N 86 [phone] Urine Culture And Sensitivities SEE RESULT BELOW 87 Laboratory test 03/12/2016 [facility] Rapid Strep Negative N Negative 88 finding [phone] Molecular Laboratory test 12/23/2015 [facility] Culture Genital SEE RESULT 89 finding [phone] & Sensitivity BELOW Laboratory test 12/23/2015 [facility] Cytology SEE RESULT 90 finding [phone] BELOW Laboratory test 12/23/2015 [facility] Human Papilloma Negative N Negative 91 finding [phone] Virus Rna GC/Chlamydia 12/23/2015 [facility] Chlamydia Negative N Negative Amplified Rna [phone] trachomatis Rna Neisseria gonorrhoeae (GC) Rna Negative N Negative Laboratory test 10/20/2015 [facility] Lactic Acid 0.6 mmol/L N 0.5- 2.0 92 finding [phone] CBC Auto Diff 10/20/2015 [facility] White Blood 15.8 10^3/uL High 3.5 -10.8 [phone] Count Red Blood Count 4.85 10^6/uL N 4.0-5.4 [...] Red Blood Cells % 0 N 1 Because ethnic data is not always readily [...] 15-29 5 Kidney failure <15 (or dialysis) 2 <5.0 Negative 5.0 - 25.0 Indeterminate (Repeat testing recommended after 72 hours) >25.0 Positive Perimenopausal women can display HCG levels of up to 20 mIU/mL 3 Therapeutic concentration: <50 ug/mL Toxic concentration: >120 ug/mL 4 Presumptive Positive Presumptive positive results are unconfirmed. 5 The urine specimen was tested at the listed cutoffs: Drug class test level (ng/mL) Amphetamines 500 Barbiturates 200 Benzodiazepine metabolites 200 Cocaine metabolites 150 Cannabinoids 50 Opiates 300 Pcp 25 Specimen was received without chain of custody. Results should be used for medical purposes only. 6 Because ethnic data is not always readily [...] 15-29 5 Kidney failure <15 (or dialysis) 7 Therapeutic concentration: <50 ug/mL Toxic concentration: >120 ug/mL 8 <5.0 Negative 5.0 - 25.0 Indeterminate (Repeat testing recommended after 72 hours) >25.0 Positive Perimenopausal women can display HCG levels of up to 20 mIU/mL 9 Presumptive Positive Presumptive positive results are unconfirmed. 10 The urine specimen was tested at the listed cutoffs: Drug class test level (ng/mL) Amphetamines 500 Barbiturates 200 Benzodiazepine metabolites 200 Cocaine metabolites 150 Cannabinoids 50 Opiates 300 Pcp 25 Specimen was received without chain of custody. Results should be used for medical purposes only. 11 SEE RESULT BELOW Name: STEPHANIE PRICE : [address]: Catherine Conrad MD Acct: [id number] Unit: [id number] AGE: 28 Location: ED Re06/22/18 SEX: F Status: DEP ER SPEC: [id number] KIKI: 06/22/18 [facility] DR: Fran Yarbrough MD REQ: [id number] RECD: 06/22/18 STATUS: WALTER LEDEZMA DR: Cindy ARAUZ _ SOURCE: URINE SPDESC: ORDERED: Urine Culture Procedure Result Reported Site Urine Culture Final 06/23/18- 0809 ML No growth of clinically significant organisms * ML - Main Lab . END OF REPORT DEPARTMENT OF PATHOLOGY, [address] [place] [address] Kevin Rebolledo M.D. Director [facility] # [id number] 12 Result in log IU/mL is Undetected. ADDITIONAL INFORMATION The quantification range of this assay is 15 to 100,000,000 IU/mL (1.18 log to 8.00 log IU/mL). Testing was performed using the pawel HCV test ([employer] with the pawel 6800 System. Test Performed by: [facility] - [address] [address] 13 Because ethnic data is not always [...] 5 Kidney failure <15 (or dialysis) 14 Handle Machine Operator: [id number] 15 Handle Machine Operator: [id number] 17 SEE RESULT BELOW Name: STEPHANIE PRICE [place] : [address]: Viktor Delgado MD Acct: [id number] Unit: [id number] AGE: 27 Location: [facility] Re12/23/17 SEX: F Status: DEP ER SPEC: [id number] KIKI: 12/23/17 [facility] DR: Viktor Delgado MD REQ: [id number] RECD: 12/23/17 STATUS: WALTER LEDEZMA DR: [facility]indy Lee [facility] _ SOURCE: URINE SPDESC: ORDERED: Urine Culture COMMENTS: [id number] Procedure Result Reported Site Urine Culture Final 12/25/17- 940 ML Organism 1 ESCHERICHIA COLI [place] Count [...] . END OF REPORT DEPARTMENT OF PATHOLOGY, [address] [place] [address] Kevin Rebolledo M.D. Director [facility] # [id number] 18 <5.0 Negative 5.0 - 25.0 Indeterminate (Repeat testing recommended after 72 hours) >25.0 Positive Perimenopausal women can display HCG levels of up to 20 mIU/mL 19 Please note: The following may produce a false positive D Dimer test: - Rheumatoid factor greater than 60 IU/ml - Plasma hemoglobin greater than 0.05 gm/dl - Bilirubin greater than 50 mg/dl - Lipids greater than 1000 mg/dl - FDP greater than 20 ug/ml 20 Because ethnic data is not always readily [...] 15-29 5 Kidney failure <15 (or dialysis) 21 No interferon-gamma response to M. tuberculosis antigens was detected. Infection with M. tuberculosis is unlikely. A single negative result does not exclude infection with M. tuberculosis. In patients at high risk for M.tuberculosis infection, a second test should be considered in accordance with the 2017 ATS/IDSA/CDC Clinical Practice Guidelines for Diagnosis of Tuberculosis in Adults and Children [Lewinsohn DM et. al. Clin. Infect. Dis. 2017;64(2):111-115]. 22 Test Performed by: [address] [address] 23 SEE RESULT BELOW Name: STEPHANIE PRICE : [address]: Dimitry Ruiz MD Acct: [id number] Unit: [id number] AGE: 27 Location: ED Re09/18/17 SEX: F Status: DEP ER SPEC: [id number] KIKI: 09/18/[address]: Jenn WALLS REQ: [id number] RECD: 09/18/17 STATUS: WALTER LEDEZMA DR: Cindy Ruiz MD _ S[facility]: ORDERED: Urine Culture Procedure Result Reported Site Urine Culture Final 09/19/17733 ML No Growth (<1,000 CFU/mL) * ML - Main Lab . END OF REPORT DEPARTMENT OF PATHOLOGY, [address] [place] [address] Kevin Rebolledo M.D. Director [facility] # [id number] 24 Because ethnic data is not always readily [...] 15-29 5 Kidney failure <15 (or dialysis) 25 Acute inflammation: >10.00 26 Would you like to order Trichomonas Vaginalis RNA testing? Y 27 SEE RESULT BELOW Name: STEPHANIE PRICE : [address]: Dimitry Ruiz MD Acct: [id number] Unit: [id number] AGE: 27 Location: ED Re09/18/17 SEX: F Status: DEP ER SPEC: [id number] KIKI: 09/18/[address]: Jenn WALLS REQ: [id number] RECD: 09/18/17 STATUS: COMP DARIEN DR: Cindyjeff Ruiz MD _ SOURCE: VAGINAL SPDESC: ORDERED: [...] CONTINUED ON NEXT PAGE DEPARTMENT OF PATHOLOGY, [address] [place] [address] Kevin Rebolledo M.D. Director [facility] # [id number] Patient: STEPHANIE PRICE [id number] (Continued) Specimen: [id number] Collected: 09/18/17 Received: 09/18/17 (Continued) Procedure Result Reported Site Trichomonas: Vaginal DNA Probe Final (continued) 09/19/17854 The presence or absence of T. vaginalis cannot be used as a test for therapeutic success or failure. * ML - [facility] . END OF REPORT DEPARTMENT OF PATHOLOGY, [address] [place] [address] Kevin Rebolledo M.D. Director [facility] # [id number] 28 Result in log IU/mL is 2.79. ADDITIONAL INFORMATION The quantification range of this assay is 15 to 100,000,000 IU/mL (1.18 log to 8.00 log IU/mL). Testing was performed using the pawel HCV test ([employer] with the pawel Functional Neuromodulation0 System. Test Performed by: [facility] [address] [place] [id number] 29 SEE RESULT BELOW Name: STEPHANIE PRICE : [address]: Jose Hale MD Acct: [id number] Unit: [id number] AGE: 27 Location: ED Re08/13/17 SEX: F Status: DEP ER SPEC: [id number] KIKI: 08/13/17 [facility] DR: Calvin Hale MD REQ: [id number] RECD: 08/13/17 STATUS: WALTER LEDEZMA DR: Cindy ARAUZ _ SOURCE: VAGINAL SPDESC: ORDERED: Billy,Yeast DNA [...] . END OF REPORT DEPARTMENT OF PATHOLOGY, [address] [place] [address] Kevin Rebolledo M.D. Director [facility] # [id number] 30 GC/Chlamydia Source?: Endocervical Trichomonas Source: Endocervical 31 <5.0 Negative 5.0 - 25.0 Indeterminate (Repeat testing recommended after 72 hours) >25.0 Positive Perimenopausal women can display HCG levels of up to 20 mIU/mL 32 Verbal to FINN MANSFIELD by [id number] at 0837 on 08/16/17. Results read back accurately. Submitted to [facility] via [employer] system by [id number] at 1411 on 08/16/17. 33 Verbal to FINN MANSFIELD by [id number] at 0837 on 08/16/17. Results read back accurately. Submitted to [facility] via [employer] system by [id number] at 1411 on 08/16/17. 34 High reactive sample are considered positive for Hepatitis C 35 Presumptive Positive Presumptive positive results are unconfirmed. 36 Presumptive Positive Presumptive positive results are unconfirmed. 37 Presumptive Positive Presumptive positive results are unconfirmed. 38 The urine specimen was tested at the listed cutoffs: Drug class test level (ng/mL) Amphetamines 500 Barbiturates 200 Benzodiazepine metabolites 200 Cocaine metabolites 150 Cannabinoids 50 Opiates 300 Pcp 25 Specimen was received without chain of custody. Results should be used for medical purposes only. 39 Because ethnic data is not always readily [...] 15-29 5 Kidney failure <15 (or dialysis) 40 SEE RESULT BELOW Name: STEPHANIE PRICE : [address]: William Barker MD Acct: [id number] Unit: [id number] AGE: 27 Location: ENDOC Re06/21/17 SEX: F Status: DEP REF SPEC: [id number] KIKI: 06/21/17-1422 [facility] DR: William Barker MD REQ: [id number] RECD: 06/21/171600 STATUS: WALTER LEDEZMA DR: Cindy ARAUZ _ SOURCE: GAS ANTRUM SPDESC: ORDERED: Clotest Procedure Result Reported Site Clotest Final 06/22/17- 0840 ML Clotest Negative * ML - Main Lab . END OF REPORT DEPARTMENT OF PATHOLOGY, [address] [place] [address] Kevin Rebolledo M.D. Director [facility] # [id number] 41 [id number] 42 SEE RESULT BELOW Name: STEPHANIE PRICE : [address]: William Barker MD Acct: [id number] Unit: [id number] AGE: 27 Location: ENDOCEC Re06/21/17 SEX: F Status: DEP REF SPEC: [id number] KIKI: 06/21/17-1200 [facility] DR: William Barker MD REQ: [id number] RECD: 06/21/171531 STATUS: DESHAUN LEDEZMA DR: Cindy ARAUZ _ ORDERED: LEVEL 4 COMMENTS: [id number] FINAL DIAGNOSIS Duodenum, biopsy: -- Benign small [...] 1147 END OF REPORT DEPARTMENT OF PATHOLOGY, [address] [place] [address] Kevin Rebolledo M.D. Director [facility] # [id number] 43 SEE RESULT BELOW Name: STEPHANIE PRICE : [address]: Cindy ARAUZ Acct: [id number] Unit: [id number] AGE: 27 Location: [facility] Re05/26/17 SEX: F Status: REG REF SPEC: [id number] KIKI: 05/26/17-153 [facility] DR: Cindy ARAUZ REQ: [id number] RECD: 05/26/17 STATUS: COMP _ SOURCE: VAGINAL SPDESC: ORDERED: Genital Culture COMMENTS: [id number] Procedure Result Reported Site Genital Culture Final 05/28/17- 1135 ML Organism 1 YEAST Quantity 1+ Organism 2 BILLY VAGINALIS-PRESUMPTIVE Quantity 2+ Organism 3 NORMAL SALVADOR Quantity 3+ Routine genital cultures do not include selective agar for Neisseria gonorrhoeae. Molecular testing offers better test sensitivity and therefore is the preferred test methodology for identifying this organism. * ML - MAIN LAB ([facility]) . END OF REPORT * ML=Testing performed at Main Lab DEPARTMENT OF PATHOLOGY, [address] [place] [address] Kevin Rebolledo M.D. Director [facility] # [id number] 44 Presumptive Positive Presumptive positive results are unconfirmed. 45 Presumptive Positive Presumptive positive results are unconfirmed. 46 The urine specimen was tested at the listed cutoffs: Drug class test level (ng/mL) Amphetamines 500 Barbiturates 200 Benzodiazepine metabolites 200 Cocaine metabolites 150 Cannabinoids 50 Opiates 300 Pcp 25 Specimen was received without chain of custody. Results should be used for medical purposes only. 47 SEE RESULT BELOW Name: STEPHANIE PRICE : [address]: Naman Mo MD Acct: [id number] Unit: [id number] AGE: 27 Location: ED Re05/25/17 SEX: F Status: DEP ER SPEC: [id number] KIKI: 05/25/17 [facility] DR: Naman Mo MD REQ: [id number] RECD: 05/25/17 STATUS: WALTER LEDEZMA DR: Cindy Lee RPA-C _ SOURCE: URINE SPDESC: ORDERED: Urine Culture Procedure Result Reported Site Urine Culture Final 05/27/17- 09 ML No growth of clinically significant organisms * ML - MAIN LAB ([facility]) . END OF REPORT * ML=Testing performed at Main Lab DEPARTMENT OF PATHOLOGY, [address] [place] [address] Kevin Rebolledo M.D. Director [facility] # [id number] 48 Because ethnic data is not always readily [...] 15-29 5 Kidney failure <15 (or dialysis) 49 High reactive sample are considered positive for Hepatitis C 50 SEE RESULT BELOW Name: STEPHANIE PRICE : [address]: Garry Batista MD Acct: [id number] Unit: [id number] AGE: 27 Location: ED Re05/11/17 SEX: F Status: DEP ER SPEC: [id number] KIKI: 05/11/17 [facility] [facility] DR: Garry Batista MD REQ: [id number] RECD: 05/11/17 STATUS: WALTER LEDEZMA DR: [facility] Cindy ARAUZ _ SOURCE: URINE SPDESC: ORDERED: Urine Culture Procedure Result Reported Site Urine Culture Final 05/12/17- 1652 ML No Growth (<1,000 CFU/mL) * ML - MAIN LAB ([facility]) . END OF REPORT * ML=Testing performed at Main Lab DEPARTMENT OF PATHOLOGY, [address] [place] [address] Kevin Rebolledo M.D. Director [facility] # [id number] 51 Because ethnic data is not always readily [...] 15-29 5 Kidney failure <15 (or dialysis) 52 Acute inflammation: >10.00 53 <5.0 Negative 5.0 - 25.0 Indeterminate (Repeat testing recommended after 72 hours) >25.0 Positive Perimenopausal women can display HCG levels of up to 20 mIU/mL 54 SEE RESULT BELOW Name: STEPHANIE PRICE [place] : [address]: Garry Batista MD Acct: [id number] Unit: [id number] AGE: 27 Location: ED Re05/11/17 SEX: F Status: DEP ER SPEC: [id number] KIKI: 05/11/17-2099 [facility] DR: Garry Batista MD REQ: [id number] RECD: 05/11/17 STATUS: WALTER LEDEZMA DR: [facility] Cindy BROOSK _ SOURCE: BLOOD,VENO SPDESC: ORDERED: Blood Cult Procedure Result Reported Site Aerobic Culture Bottle Final 05/16/17- 2129 ML No Growth Day 5 Anaerobic Culture Bottle Final 05/16/17- 0 ML No Growth Day 5 * ML - [facility] ([facility]) . END OF REPORT * ML=Testing performed at Main Lab DEPARTMENT OF PATHOLOGY, [address] [place] [address] Kevin Rebolledo M.D. Director [facility] # [id number] 55 Handle Machine Operator: [id number] 56 Handle Machine Operator: [id number] It is recognized that currently available assays [...] 95% confidence interval of 99.78 to 99.96%. 58 Result in log IU/mL is 5.56. ADDITIONAL INFORMATION The quantification range of this assay is 15 to 100,000,000 IU/mL (1.18 log to 8.00 log IU/mL). Testing was performed using the pawel HCV test ([employer] with the pawel 6800 System. Test Performed by: [facility] - [address] [address] 59 ADDITIONAL INFORMATION This test was performed using the [place] RealTime HCV Genotype II assay ([employer] [place], [place]). Test Performed by: [facility] - [address] [address] 60 Because ethnic data is not always [...] 5 Kidney failure <15 (or dialysis) 61 High reactive sample are considered positive for Hepatitis C 62 Therapeutic target for the treatment of diabetes mellitus patients is <7% HBA1C, and in selective patients <6.0%. Please refer to [place] [employer] diabetic care guidelines for further information. 63 Because ethnic data is not always readily [...] 15-29 5 Kidney failure <15 (or dialysis) 64 Normal Range 180 to 914 Indeterminate Range 145 to 180 Deficient Range <145 65 REFERENCE VALUE <1.0 (Negative) 66 REFERENCE VALUE <1.0 (Negative) Test Performed by: [facility] [address] [place] [address] 67 REFERENCE VALUE <=1.0 (Negative) 68 REFERENCE VALUE <20.0 (Negative) 69 Tests for antibodies to dsDNA and KEYLA antigens are not performed automatically unless the JACQUIE result is > or= 3.0 U. Studies performed at [facility] indicate that positive JACQUIE results <3.0 U are rarely accompanied by positive second order tests. Test Performed by: [facility] - [address] [address] 70 Serologic response to B. burgdorferi infection is not detected, but cannot rule out early infection during which low or undetectable antibody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
[2018-07-04 09:41] LABS: Barbiturates Urine Screen None Detected (None Detect); Benzodiazepine Urine Screen None Detected (None Detect); Urine Cannabinoids Screen None Detected (None Detect)
[2018-07-04] MEDS ORDERED: buPROPion TAB* 75 MG PO ONE (09:42)
[2018-07-04 09:46] LABS: Urine Appearance Cloudy; Urine Bacteria Absent (Absent); Urine Bilirubin Negative (Negative); Urine Blood Negative (Negative); Urine Color Yellow; Urine Glucose Negative (Negative); Urine Ketones Trace (Negative); Urine Nitrite Negative (Negative); Urine Protein Negative (Negative); Urine Red Blood Cell 3+(>10/hpf) (Absent); Urine Specific Gravity 1.018 (1.010-1.030); Urine Squamous Epithelial Cell Present (Absent); Urine Urobilinogen Negative (Negative); Urine White Blood Cell 3+(>20/hpf) (Absent)
[2018-07-04 09:51] LABS: ALT 65 U/L (7-52); AST 40 U/L (13-39); Albumin 4.6 g/dL (3.2-5.2); Albumin/Globulin Ratio 1.8 (1-3); Alkaline Phosphatase 76 U/L (34-104); Anion Gap 8 mmol/L (2-11); BUN/Creatinine Ratio 16.7 (8-20); Blood Urea Nitrogen 10 mg/dL (6-24); CO2 Carbon Dioxide 24 mmol/L (22-32); Calcium 9.1 mg/dL (8.6-10.3); Chloride 105 mmol/L (101-111); EGFR African American 146.2 (>60); EGFR Non-African American 120.8 (>60); Globulin 2.5 g/dL (2-4); Glucose 84 mg/dL (70-100); Potassium 3.7 mmol/L (3.5-5.0); Sodium 137 mmol/L (135-145); Total Protein 7.1 g/dL (6.4-8.9)
[2018-07-04 09:53] LABS: HCG Pregnancy < 0.60 mIU/mL
[2018-07-04 10:07] LABS: Acetaminophen < 15 mcg/mL; Alcohol < 10 mg/dL (<10); Lithium < 0.10 mmol/L (0.6-1.2); Salicylate < 2.50 mg/dL (<30)
[2018-07-04 10:15] LABS: TSH (Thyroid Stimulating Horm) 1.41 mcIU/mL (0.34-5.60)
[2018-07-04] MEDS ORDERED: busPIRone TAB* 10 MG PO ONE (11:26)
[2018-07-04] MEDS ORDERED: LORazepam TAB(*) 1 MG PO ONE ×2 (12:53→15:42)
[2018-07-04] MEDS ORDERED: Lurasidone(*) 80 MG TAB PO SCH (18:30)
[2018-07-04 20:15] VITALS: BP 121/84
== END 2018-07-04 20:14 | disposition home or self-care (01) ==
LOC: ED 08:46
DX: R44.3 Hallucinations, unspecified (principal); F41.1 Generalized anxiety disorder; Z88.0 Allergy status to penicillin; F17.210 Nicotine dependence, cigarettes, uncomplicated; R50.9 Fever, unspecified
CPT/HCPCS: 36415; 80053; 80164; 80178; 80307; 80320; 80329; 81003; 81015; 84443; 84702; 85025; 87086; 99283; A9270-GY; G0480

== ENCOUNTER 2018-07-05 12:00 | Inpatient (IN) | payer OTHER ==
[2018-07-05] MEDS ORDERED: LORazepam TAB(*) 1 MG PO ONE ×2 (12:41→16:53)
[2018-07-05] MEDS ORDERED: Nicotine PATCH 21 MG/24 HR* PATCH TRANSDERM ONE (12:46)
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
[2018-07-05] MEDS ORDERED: Buprenorphine TAB* 8 MG PO ONE (12:53)
[2018-07-05 13:05] LABS: Urine Appearance Cloudy; Urine Bacteria Absent (Absent); Urine Bilirubin Negative (Negative); Urine Blood 1+ (Negative); Urine Color Amber; Urine Glucose Negative (Negative); Urine Ketones Trace (Negative); Urine Nitrite Negative (Negative); Urine Protein 1+(30 mg/dL) (Negative); Urine Red Blood Cell 3+(>10/hpf) (Absent); Urine Specific Gravity 1.026 (1.010-1.030); Urine Squamous Epithelial Cell Present (Absent); Urine Urobilinogen Negative (Negative); Urine White Blood Cell 3+(>20/hpf) (Absent)
[2018-07-05 13:12] LABS: Barbiturates Urine Screen None Detected (None Detect); Benzodiazepine Urine Screen None Detected (None Detect); Urine Cannabinoids Screen None Detected (None Detect)
[2018-07-05 13:37] LABS: ABS Basophils 0.1 10^3/ul (0-0.2); ABS Eosinophils 0.2 10^3/ul (0-0.6); ABS Lymphocytes 3.3 10^3/ul (1.0-4.8); ABS Monocytes 0.8 10^3/ul (0-0.8); ABS Nucleated RBC 0 10^3/ul; Eosinophil % 2.4 %; Hematocrit 36 % (33-41); Lymphocyte % 31.5 %; Mean Corpuscular HGB Conc 34 g/dL (31-36); Mean Corpuscular Hemoglobin 30 pg (27-31); Mean Corpuscular Volume 87 fL (80-97); Mean Platelet Volume 8.1 fL (7.4-10.4); Nucleated Red Blood Cells % 0; Platelet Count 259 10^3/uL (150-450); Red Blood Count 4.08 10^6 /uL (3.70-4.87); Red Cell Distribution Width 14 % (10.5-15); White Blood Count 10.4 10^3/uL (3.5-10.8)
[2018-07-05 13:56] LABS: ALT 88 U/L (7-52); AST 52 U/L (13-39); Albumin 4.5 g/dL (3.2-5.2); Albumin/Globulin Ratio 1.7 (1-3); Alkaline Phosphatase 73 U/L (34-104); Anion Gap 10 mmol/L (2-11); BUN/Creatinine Ratio 15.6 (8-20); Blood Urea Nitrogen 10 mg/dL (6-24); CO2 Carbon Dioxide 24 mmol/L (22-32); Calcium 9.2 mg/dL (8.6-10.3); Chloride 103 mmol/L (101-111); EGFR African American 135.7 (>60); EGFR Non-African American 112.2 (>60); Globulin 2.6 g/dL (2-4); Glucose 123 mg/dL (70-100); Potassium 3.9 mmol/L (3.5-5.0); Sodium 137 mmol/L (135-145); Total Protein 7.1 g/dL (6.4-8.9)
[2018-07-05 14:01] LABS: HCG Pregnancy < 0.60 mIU/mL
[2018-07-05 14:06] LABS: Acetaminophen < 15 mcg/mL; Alcohol < 10 mg/dL (<10); Salicylate < 2.50 mg/dL (<30)
[2018-07-05] MEDS ORDERED: hydrOXYzine HCL TAB* 50 MG PO PRN (16:18)
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
[2018-07-05] MEDS ORDERED: Lurasidone(*) 80 MG TAB PO SCH (17:00)
[2018-07-05] MEDS: Lurasidone(*) 80 MG TAB PO SCH (18:01)
[2018-07-05] MEDS ORDERED: hydrOXYzine HCL TAB* 50 MG PO ONE (18:57)
[2018-07-05] MEDS: traZODone TAB* 100 MG PO PRN (19:32)
[2018-07-05] MEDS: Mouth Piece, Nicotine* 1 EACH CARTRIDGE INH ONE (20:54)
[2018-07-05] MEDS ORDERED: Nicotine Patch Removal NOTE PATCH OFF SCH (21:00)
[2018-07-05] MEDS: Buprenorphine TAB* 8 MG SL SCH (21:56)
[2018-07-05] MEDS: Nicotine Patch Removal NOTE FOLLOW UP SCH (21:57)
[2018-07-05] MEDS: hydrOXYzine HCL TAB* 50 MG PO PRN (23:41)
[2018-07-06] MEDS: traZODone TAB* 100 MG PO PRN ×2 (01:02→21:15)
[2018-07-06] MEDS: hydrOXYzine HCL TAB* 50 MG PO PRN ×4 (05:08→18:35)
[2018-07-06] MEDS ORDERED: Haloperidol TAB* 5 MG ONE (05:49)
[2018-07-06] MEDS: Nicotine GUM* 2 MG PO PRN ×4 (05:51→17:29)
[2018-07-06 07:03] LABS: HDL Cholesterol 41.7 mg/dL
[2018-07-06] MEDS ORDERED: Nicotine PATCH 21 MG/24 HR* PATCH ONE (07:53)
[2018-07-06] MEDS: Nicotine PATCH 21 MG/24 HR* PATCH TRANSDERM SCH (07:54)
[2018-07-06] MEDS: Buprenorphine TAB* 8 MG SL SCH ×2 (07:55→20:39)
[2018-07-06] MEDS: Acetaminophen TAB* 325 MG PO PRN ×2 (07:56→17:26)
[2018-07-06] MEDS: Vitamin THERAPEUTIC TAB PO SCH (07:56)
[2018-07-06] MEDS ORDERED: Nicotine PATCH 14 MG/24 HR* PATCH TRANSDERM SCH (08:00)
[2018-07-06] MEDS: Mouth Piece, Nicotine* 1 EACH CARTRIDGE INH ONE (10:29)
[2018-07-06] MEDS: Nicotine Inhaler* 10 MG AMP INH PRN ×3 (10:30→17:26)
[2018-07-06 15:35] LABS: Hepatitis B Surface Antigen Nonreactive (Nonreactive)
[2018-07-06 16:00] LABS: Hepatitis C Antibody High Reactive (Nonreactive)
[2018-07-06] MEDS: cloNIDine TAB* 0.1 MG PO PRN ×2 (16:18→21:14)
[2018-07-06] MEDS: Lurasidone(*) 80 MG TAB PO SCH (16:57)
[2018-07-06] MEDS: chlorproMAZINE TAB* 50 MG PO PRN ×2 (16:57→23:53)
[2018-07-06] MEDS ORDERED: Mouth Piece, Nicotine* 1 EACH CARTRIDGE ONE (17:26)
[2018-07-06] MEDS: Nicotine Patch Removal NOTE FOLLOW UP SCH (20:44)
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
[2018-07-07] MEDS: hydrOXYzine HCL TAB* 50 MG PO PRN ×5 (03:56→22:45)
[2018-07-07] MEDS: Acetaminophen TAB* 325 MG PO PRN ×5 (04:20→22:44)
[2018-07-07] MEDS ORDERED: Mouth Piece, Nicotine* 1 EACH CARTRIDGE ONE (04:31)
[2018-07-07] MEDS: Mouth Piece, Nicotine* 1 EACH CARTRIDGE INH ONE (04:33)
[2018-07-07] MEDS: Nicotine Inhaler* 10 MG AMP INH PRN ×4 (04:34→22:54)
[2018-07-07] MEDS: Nicotine GUM* 2 MG PO PRN ×3 (04:34→11:21)
[2018-07-07] MEDS: chlorproMAZINE TAB* 50 MG PO PRN (07:57)
[2018-07-07] MEDS: Vitamin THERAPEUTIC TAB PO SCH (07:58)
[2018-07-07] MEDS: Buprenorphine TAB* 8 MG SL SCH ×2 (07:59→16:06)
[2018-07-07] MEDS: Nicotine PATCH 21 MG/24 HR* PATCH TRANSDERM SCH ×2 (07:59→11:46)
[2018-07-07] MEDS: cloNIDine TAB* 0.1 MG PO PRN (08:58)
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
[2018-07-07] MEDS: Lurasidone(*) 80 MG TAB PO SCH (16:56)
[2018-07-07] MEDS: Magic Mouth Was-BEN/MAAL/LIDO SWISH SPIT PRN ×3 (17:38→22:46)
[2018-07-07] MEDS: cloNIDine TAB* 0.1 MG PO SCH (20:10)
[2018-07-07] MEDS: Nicotine Patch Removal NOTE FOLLOW UP SCH (20:34)
[2018-07-07] MEDS: traZODone TAB* 100 MG PO PRN (20:35)
[2018-07-08] MEDS: Acetaminophen TAB* 325 MG PO PRN ×3 (02:30→19:52)
[2018-07-08] MEDS: Nicotine Inhaler* 10 MG AMP INH PRN ×4 (02:30→15:09)
[2018-07-08] MEDS: hydrOXYzine HCL TAB* 50 MG PO PRN ×3 (02:30→11:04)
[2018-07-08] MEDS: cloNIDine TAB* 0.1 MG PO SCH (08:00)
[2018-07-08] MEDS: Vitamin THERAPEUTIC TAB PO SCH (08:00)
[2018-07-08] MEDS: Nicotine PATCH 21 MG/24 HR* PATCH TRANSDERM SCH (08:01)
[2018-07-08] MEDS: Buprenorphine TAB* 8 MG SL SCH ×2 (08:18→17:30)
[2018-07-08] MEDS: Magic Mouth Was-BEN/MAAL/LIDO SWISH SPIT PRN ×4 (12:15→22:34)
[2018-07-08] MEDS: Nicotine GUM* 2 MG PO PRN ×3 (12:31→23:15)
[2018-07-08] MEDS ORDERED: LORazepam TAB(*) 1 MG ONE (14:38)
[2018-07-08] MEDS ORDERED: Propranolol TAB* 20 MG ONE (14:38)
[2018-07-08] MEDS: Lurasidone(*) 80 MG TAB PO SCH (17:31)
[2018-07-08] MEDS: Ibuprofen TAB* 600 MG PO PRN ×3 (17:32→23:13)
[2018-07-08] MEDS: Nicotine Patch Removal NOTE FOLLOW UP SCH (19:55)
[2018-07-08] MEDS: Propranolol TAB* 20 MG PO SCH ×2 (22:00→22:13)
[2018-07-08] MEDS: Benzocaine (DENTAL) 10%* TOP.GEL TOPICAL PRN (22:14)
[2018-07-08] MEDS: Mouth Piece, Nicotine* 1 EACH CARTRIDGE ONE (23:14)
[2018-07-08] MEDS: hydrOXYzine HCL TAB* 25 MG PO PRN (23:21)
[2018-07-09] MEDS: Nicotine GUM* 2 MG PO PRN ×4 (01:19→20:12)
[2018-07-09] MEDS: Acetaminophen TAB* 325 MG PO PRN ×3 (01:20→23:27)
[2018-07-09] MEDS: Nicotine Inhaler* 10 MG AMP INH PRN ×3 (01:20→16:08)
[2018-07-09] MEDS: hydrOXYzine HCL TAB* 25 MG PO PRN ×4 (02:36→23:28)
[2018-07-09] MEDS ORDERED: Propranolol TAB* 20 MG PO ONE (05:45)
[2018-07-09] MEDS ORDERED: LORazepam TAB(*) 1 MG PO ONE (05:45)
[2018-07-09] MEDS ORDERED: LORazepam TAB(*) 1 MG ONE (06:03)
[2018-07-09] MEDS ORDERED: Propranolol TAB* 20 MG ONE (06:04)
[2018-07-09 06:46] LABS: ABS Basophils 0 10^3/ul (0-0.2); ABS Eosinophils 0.5 10^3/ul (0-0.6); ABS Lymphocytes 2.6 10^3/ul (1.0-4.8); ABS Monocytes 0.5 10^3/ul (0-0.8); ABS Neutrophils 4.5 10^3/ul (1.5-7.7); ABS Nucleated RBC 0 10^3/ul; Eosinophil % 6.7 %; Hematocrit 34 % (33-41); Hemoglobin 11.3 g/dL (12.0-16.0); Lymphocyte % 31.9 %; Mean Corpuscular HGB Conc 34 g/dL (31-36); Mean Corpuscular Hemoglobin 29 pg (27-31); Mean Corpuscular Volume 86 fL (80-97); Mean Platelet Volume 7.7 fL (7.4-10.4); Nucleated Red Blood Cells % 0.1; Platelet Count 260 10^3/uL (150-450); Red Blood Count 3.91 10^6 /uL (3.70-4.87); Red Cell Distribution Width 14 % (10.5-15); White Blood Count 8.2 10^3/uL (3.5-10.8)
[2018-07-09 07:10] LABS: Albumin 4.1 g/dL (3.2-5.2); Albumin/Globulin Ratio 1.8 (1-3); BUN/Creatinine Ratio 20.7 (8-20); Calcium 9.2 mg/dL (8.6-10.3); EGFR African American 95.2 (>60); EGFR Non-African American 78.7 (>60); Globulin 2.3 g/dL (2-4); Potassium 4.3 mmol/L (3.5-5.0); Total Bilirubin 0.3 mg/dL (0.2-1.0); Total Protein 6.4 g/dL (6.4-8.9)
[2018-07-09] MEDS: Nicotine PATCH 21 MG/24 HR* PATCH TRANSDERM SCH (07:36)
[2018-07-09] MEDS: Propranolol TAB* 20 MG PO SCH ×2 (07:38→20:43)
[2018-07-09] MEDS: Vitamin THERAPEUTIC TAB PO SCH (07:38)
[2018-07-09] MEDS: Buprenorphine TAB* 8 MG SL SCH ×2 (07:39→16:05)
[2018-07-09] MEDS: Mouth Piece, Nicotine* 1 EACH CARTRIDGE ONE (08:18)
[2018-07-09] MEDS ORDERED: Mouth Piece, Nicotine* 1 EACH CARTRIDGE ONE (08:18)
[2018-07-09] MEDS: Magic Mouth Was-BEN/MAAL/LIDO SWISH SPIT PRN ×2 (10:32→23:26)
[2018-07-09] MEDS ORDERED: chlorproMAZINE TAB* 50 MG PO ONE (15:20)
[2018-07-09] MEDS ORDERED: chlorproMAZINE TAB* 50 MG ONE (15:32)
[2018-07-09] MEDS: Ibuprofen TAB* 600 MG PO PRN (17:01)
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
[2018-07-09] MEDS: Nicotine Patch Removal NOTE FOLLOW UP SCH (22:09)
[2018-07-09] MEDS: traZODone TAB* 100 MG PO PRN (23:28)
[2018-07-10] MEDS: hydrOXYzine HCL TAB* 25 MG PO PRN ×3 (02:33→18:27)
[2018-07-10] MEDS: Nicotine Inhaler* 10 MG AMP INH PRN ×5 (02:35→18:43)
[2018-07-10] MEDS: Ibuprofen TAB* 600 MG PO PRN ×2 (03:09→14:08)
[2018-07-10] MEDS: Nicotine GUM* 2 MG PO PRN ×3 (05:59→18:43)
[2018-07-10] MEDS: Buprenorphine TAB* 8 MG SL SCH ×2 (07:57→17:10)
[2018-07-10] MEDS: Vitamin THERAPEUTIC TAB PO SCH (07:57)
[2018-07-10] MEDS: Propranolol TAB* 20 MG PO SCH ×2 (07:57→20:17)
[2018-07-10] MEDS: Nicotine PATCH 21 MG/24 HR* PATCH TRANSDERM SCH (07:59)
[2018-07-10] MEDS: Magic Mouth Was-BEN/MAAL/LIDO SWISH SPIT PRN ×2 (10:06→21:02)
--- NOTE | 2018-07-10 12:10 | PN ---
Subjective - Subjective Date of Service: 07/10/18 Service Type: 48130 Hosp care 25 min moderate complexity Subjective: Patient has been irritable, labile and intrusive. Patient endorses feeling anxious, antsy and "tensed up." She continues to state paranoid ideation. Latuda stopped by covering provider due to concerns of akathesia. Patient refuses to change to another medication; therefore will restart at lower dose. Will temporarily utilize clonazepam. She agrees to trial gabapentin. Objective - General Observations Appearance: Disheveled Appears Stated Age: No - younger Stature: WNL Posture: Tense Eye Contact: Average - tremulous, hyperactivity Behavior/Activity: Other (See Comment) - Interaction Observations Attitude Towards Examiner: Cooperative, Anxious Stated Mood: Irritable Affect: Full Speech Pattern/Tone: Rambling, Pressured Thought Process: Filght of Ideas, Racing Perception: WNL Thought Content: Paranoid Thought Process: Lethality: Paranoid Ideation Hallucination Type: Denies Delusion Type: Denies - Cognitive Function Orientation: A&O x 4 Level of Consciousness: Alert Cognition: WNL, Impaired Reading Estimated Intelligence: Normal Insight: WNL Judgment Within Normal Limits: No Ability to Make Reasonable Decisions: Serverely Impaired - Medication Compliance Cooperative with Inpatient Medication Regimen: Yes - Group Participation Participates in Group Activities: Partial Assessment - Assessment Merits Inpatient Hospitalization: For Immediate Safety, For Stabilization Inpatient DSM-V Dx: F31.2 Clinical Impression: 28yo wf who discharged from [facility] last week and returns due to decompensation. She has a history of bipolar d/o and is presenting with bizarre presentation. She has a history of opiate use, in remission with buprenorphine. She merits hospitalization for immediate safety and stabilization. Plan - Plan Treatment Plan: Name: KAL PRICE Birthdate: 1990 [id number] continue acute intensive psychiatric treatment. may continue q30min obs and allow staff pass. lurasidone was stopped by on-call provider. add quietiapine 200mg qhs, gabapentin 300mg BID and brief course of clonazepam for akathesia. Continued Medication Management: Start Medication Medications: Current Medications Acetaminophen (Tylenol Tab*) 650 mg PO Q4H PRN PRN Reason: for pain; or Temp >101 F Last Admin: 07/09/18 23:27 Dose: 650 mg Al Hydrox/Mg Hydrox/Simethicone (Maalox Plus*) 30 ml PO Q4H PRN PRN Reason: INDIGESTION Benzocaine (Orajel 10%*) 1 applic TOPICAL QID PRN PRN Reason: .TOOTHACHE Last Admin: 07/08/18 22:14 Dose: 1 applic Buprenorphine HCl (Subutex Tab*) 8 mg SL BID@0800,1600 [facility] Last Admin: 07/10/18 07:57 Dose: 8 mg Clonazepam (Klonopin Tab(*)) 0.5 mg PO BID [facility] Gabapentin (Neurontin Cap(*)) 300 mg PO BID [facility] Hydroxyzine HCl (Atarax Tab*) 25 mg PO Q4H PRN PRN Reason: ANXIETY Last Admin: 07/10/18 07:57 Dose: 25 mg Ibuprofen (Motrin Tab*) 600 mg PO Q6H PRN PRN Reason: PAIN Last Admin: 07/10/18 03:09 Dose: 600 mg Multi-Ingredient Mouthwash/Gargle (Magic Mouth Was-Rafael/Maal/Lido*) 5 ml SWISH SPIT QID PRN PRN Reason: mouth pain Last Admin: 07/10/18 10:06 Dose: 5 ml Multivitamins (Theragran Tab*) 1 tab PO DAILY [facility] Last Admin: 07/10/18 07:57 Dose: 1 tab Nicotine (Nicotine Inhaler*) 10 mg INH Q2H PRN PRN Reason: CRAVING Last Admin: 07/10/18 08:31 Dose: 10 mg Nicotine (Nicotine Patch 21 Mg/24 Hr*) 1 patch TRANSDERM DAILY@0800 [facility] Last Admin: 07/10/18 07:59 Dose: 1 patch Nicotine Polacrilex (Nicotine Gum*) 2 mg PO Q2H PRN PRN Reason: CRAVING Last Admin: 07/10/18 05:59 Dose: 2 mg Pharmacy Profile Note (Nicotine Patch Removal Note*) 1 note FOLLOW UP 2100 [facility] Last Admin: 07/09/18 22:09 Dose: 1 note Propranolol HCl (Inderal Tab*) 20 mg PO BID [facility] Last Admin: 07/10/18 07:57 Dose: 20 mg Quetiapine Fumarate (Seroquel Tab*) 200 mg PO BEDTIME [facility] Throat Lozenges (Chloraseptic Caesar*) 1 caesar MT Q2HR PRN PRN Reason: SORE THROAT - Discharge Plan Discharge Plan: Inpatient Hospitalization
[2018-07-10] MEDS: Gabapentin CAP(*) 300 MG PO SCH ×2 (12:39→20:16)
[2018-07-10] MEDS: clonazePAM TAB(*) 0.5 MG PO SCH ×2 (12:39→20:16)
[2018-07-10] MEDS: Lurasidone(*) 40 MG TAB PO SCH (17:23)
[2018-07-10] MEDS: Nicotine Patch Removal NOTE FOLLOW UP SCH (20:22)
[2018-07-10] MEDS ORDERED: QUEtiapine TAB* 100 MG PO SCH ×2 (21:00)
[2018-07-11] MEDS: hydrOXYzine HCL TAB* 25 MG PO PRN ×3 (01:00→13:53)
[2018-07-11] MEDS ORDERED: chlorproMAZINE TAB* 50 MG PO ONE (02:45)
[2018-07-11] MEDS ORDERED: chlorproMAZINE TAB* 50 MG ONE (02:53)
[2018-07-11] MEDS: Nicotine Inhaler* 10 MG AMP INH PRN ×5 (02:55→19:10)
[2018-07-11] MEDS: Nicotine GUM* 2 MG PO PRN ×5 (02:55→19:10)
[2018-07-11] MEDS: Magic Mouth Was-BEN/MAAL/LIDO SWISH SPIT PRN (03:00)
[2018-07-11] MEDS: Gabapentin CAP(*) 300 MG PO SCH ×2 (07:43→19:59)
[2018-07-11] MEDS: clonazePAM TAB(*) 0.5 MG PO SCH ×2 (07:44→20:02)
[2018-07-11] MEDS: Propranolol TAB* 20 MG PO SCH ×2 (07:44→20:01)
[2018-07-11] MEDS: Vitamin THERAPEUTIC TAB PO SCH (07:44)
[2018-07-11] MEDS: Acetaminophen TAB* 325 MG PO PRN ×2 (07:44→19:13)
[2018-07-11] MEDS: Buprenorphine TAB* 8 MG SL SCH ×2 (07:45→16:05)
[2018-07-11] MEDS: Nicotine PATCH 21 MG/24 HR* PATCH TRANSDERM SCH (07:50)
[2018-07-11] MEDS ORDERED: Mouth Piece, Nicotine* 1 EACH CARTRIDGE ONE ×2 (08:26→19:09)
--- NOTE | 2018-07-11 11:58 | PN ---
[facility]: Group Therapy Note - Service Type Service Type: 84050 Group Psychotherapy - Cognitive Behavioral Group Therapy ( CBT):Patient presented in CBT programming as disorganized and disruptive in discussion and needed repeated redirection to attend to presented materials. Stephanie continues to present with intrusive physical symptoms characterized by restlessness.
[2018-07-11] MEDS: Ibuprofen TAB* 600 MG PO PRN (13:50)
--- NOTE | 2018-07-11 16:45 | PN ---
Subjective - Subjective Date of Service: 07/11/18 Service Type: [id number] Hosp care 15 min low complexity Subjective: Patient is soaking her feet in warm water due to fallen arches. She reports this and supports for her shoes that her mom brought to her are helpful. She reports improvement in feeling "antsy." She denies anxiety and reports desire to stay on current medications. She inquires about buspirone and policy writer informs her that this may worsening mood lability. She refuses to discuss options for sleep and is adamant that she will not take quetiapine. She states she does not want any medication that causes her to feel "doped up or drunk." Objective - General Observations Appearance: Well Groomed Stature: WNL Posture: WNL Eye Contact: Average Behavior/Activity: WNL - Interaction Observations Attitude Towards Examiner: Cooperative Stated Mood: Euthymic Affect: Bright Speech Pattern/Tone: Clear Thought Process: Goal Directed, Loose Associations Perception: WNL Thought Content: WNL Hallucination Type: Denies Delusion Type: Denies - Cognitive Function Orientation: A&O x 4 Level of Consciousness: Alert Cognition: WNL, Impaired Reading Estimated Intelligence: Normal Insight: WNL Judgment Within Normal Limits: No Ability to Make Reasonable Decisions: Moderately Impaired - Medication Compliance Cooperative with Inpatient Medication Regimen: Yes - Group Participation Participates in Group Activities: Yes Assessment - Assessment Inpatient DSM-V Dx: F31.2 Clinical Impression: 28yo wf who discharged from [facility] last week and returns due to decompensation. She has a history of bipolar d/o and is presenting with bizarre presentation. She has a history of opiate use, in remission with buprenorphine. She merits hospitalization for immediate safety and stabilization. Plan - Plan Treatment Plan: Name: KAL PRICE Birthdate: 1990 [id number] continue acute intensive psychiatric treatment. may continue q30min obs and allow staff pass. resume lurasidone at lower dose, 40mg daily. increase gabapentin to 300mg qam and 600mg qhs. increase prn hydroxyzine to 100mg q6h prn anxiety. Medications: Current Medications Acetaminophen (Tylenol Tab*) 650 mg PO Q4H PRN PRN Reason: for pain; or Temp >101 F Last Admin: 07/11/18 07:44 Dose: 650 mg Al Hydrox/Mg Hydrox/Simethicone (Maalox Plus*) 30 ml PO Q4H PRN PRN Reason: INDIGESTION Benzocaine (Orajel 10%*) 1 applic TOPICAL QID PRN PRN Reason: .TOOTHACHE Last Admin: 07/08/18 22:14 Dose: 1 applic Buprenorphine HCl (Subutex Tab*) 8 mg SL BID@0800,1600 [facility] Last Admin: 07/11/18 16:05 Dose: 8 mg Clonazepam (Klonopin Tab(*)) 0.5 mg PO BID [facility] Last Admin: 07/11/18 07:44 Dose: 0.5 mg Gabapentin (Neurontin Cap(*)) 600 mg PO BEDTIME [facility] Gabapentin (Neurontin Cap(*)) 300 mg PO DAILY [facility] Hydroxyzine HCl (Atarax Tab*) 100 mg PO Q6H PRN PRN Reason: ANXIETY Ibuprofen (Motrin Tab*) 600 mg PO Q6H PRN PRN Reason: PAIN Last Admin: 07/11/18 13:50 Dose: 600 mg Lurasidone HCl (Latuda) 40 mg PO 1700 [facility] Last Admin: 07/10/18 17:23 Dose: 40 mg Multi-Ingredient Mouthwash/Gargle (Magic Mouth Was-Rafael/Maal/Lido*) 5 ml SWISH SPIT QID PRN PRN Reason: mouth pain Last Admin: 07/11/18 03:00 Dose: 5 ml Multivitamins (Theragran Tab*) 1 tab PO DAILY [facility] Last Admin: 07/11/18 07:44 Dose: 1 tab Nicotine (Nicotine Inhaler*) 10 mg INH Q2H PRN PRN Reason: CRAVING Last Admin: 07/11/18 16:07 Dose: 10 mg Nicotine (Nicotine Patch 21 Mg/24 Hr*) 1 patch TRANSDERM DAILY@0800 [facility] Last Admin: 07/11/18 07:50 Dose: 1 patch Nicotine Polacrilex (Nicotine Gum*) 2 mg PO Q2H PRN PRN Reason: CRAVING Last Admin: 07/11/18 16:07 Dose: 2 mg Pharmacy Profile Note (Nicotine Patch Removal Note*) 1 note FOLLOW UP 2100 [facility] Last Admin: 07/10/18 20:22 Dose: 1 note Propranolol HCl (Inderal Tab*) 20 mg PO BID [facility] Last Admin: 07/11/18 07:44 Dose: 20 mg Throat Lozenges (Chloraseptic Caesar*) 1 caesar MT Q2HR PRN PRN Reason: SORE THROAT - Discharge Plan Discharge Plan: Inpatient Hospitalization
[2018-07-11] MEDS: Lurasidone(*) 40 MG TAB PO SCH (16:55)
[2018-07-11] MEDS: hydrOXYzine HCL TAB* 50 MG PO PRN (19:10)
[2018-07-11] MEDS: Nicotine Patch Removal NOTE FOLLOW UP SCH (21:14)
[2018-07-12] MEDS: Ibuprofen TAB* 600 MG PO PRN ×2 (03:02→12:47)
[2018-07-12] MEDS: Nicotine Inhaler* 10 MG AMP INH PRN ×2 (03:02→12:47)
[2018-07-12] MEDS: hydrOXYzine HCL TAB* 50 MG PO PRN ×2 (03:04→15:54)
[2018-07-12] MEDS: Acetaminophen TAB* 325 MG PO PRN ×2 (04:15→15:55)
[2018-07-12] MEDS: Benzocaine/Menthol LOZ* 1 LOZENGE MT PRN (07:55)
[2018-07-12] MEDS: Nicotine PATCH 21 MG/24 HR* PATCH TRANSDERM SCH (09:14)
[2018-07-12] MEDS: clonazePAM TAB(*) 0.5 MG PO SCH (09:48)
[2018-07-12] MEDS: Gabapentin CAP(*) 300 MG PO SCH ×2 (09:49→20:30)
[2018-07-12] MEDS: Vitamin THERAPEUTIC TAB PO SCH (09:49)
[2018-07-12] MEDS: Propranolol TAB* 20 MG PO SCH ×2 (09:50→20:31)
[2018-07-12] MEDS: Buprenorphine TAB* 8 MG SL SCH ×2 (09:52→15:54)
[2018-07-12] MEDS ORDERED: clonazePAM TAB(*) 0.5 MG PO ONE (10:16)
[2018-07-12] MEDS: Nicotine Patch Removal NOTE FOLLOW UP SCH ×2 (11:00→20:34)
[2018-07-12] MEDS: Paliperidone ER TAB* 6 MG TAB.ER PO SCH (12:44)
[2018-07-12] MEDS: Nicotine GUM* 2 MG PO PRN (13:10)
[2018-07-12] MEDS: Benztropine TAB* 1 MG PO SCH ×2 (13:10→20:28)
--- NOTE | 2018-07-12 16:30 | PN ---
Subjective - Subjective Date of Service: 07/12/18 Service Type: [id number] Hosp care 25 min moderate complexity Subjective: This morning, patient expressed concern that she has court in [place] today. Music Adapter phoned [facility] court, instructed to tell patient to call to reschedule when she is discharged. Patient is intrusive and difficult to redirect. She initially refused paliperidone and demanded to be prescribed Latuda. She states "I've been doing great on the Latuda!" She is irritable at times, apologetic other times. Patient is disruptive to peers and often walks/paces about. Objective - General Observations Appearance: Well Groomed Stature: WNL Posture: Tense, Atypical - restlessness Eye Contact: Average Behavior/Activity: Accelerated, Impulsive, Agitated - Interaction Observations Attitude Towards Examiner: Anxious, Defensive, Demanding Stated Mood: Elevated, Anxious Affect: Restricted Speech Pattern/Tone: Rambling, Pressured Thought Process: Loose Associations, Tangential, Over Inclusive, Racing Perception: WNL Thought Content: Preoccupation/Ruminations, Paranoid Thought Process: Lethality: Paranoid Ideation Hallucination Type: Denies Delusion Type: Denies - Cognitive Function Orientation: A&O x 4 Level of Consciousness: Alert Cognition: WNL Estimated Intelligence: Normal Insight: Difficulty Acknowledging Presence of Psyciatric Problems Judgment Within Normal Limits: No Ability to Make Reasonable Decisions: Serverely Impaired - Medication Compliance Cooperative with Inpatient Medication Regimen: Yes - Group Participation Participates in Group Activities: Yes Assessment - Assessment Merits Inpatient Hospitalization: For Immediate Safety, For Stabilization Inpatient DSM-V Dx: F31.2 Clinical Impression: 28yo wf who returns to ED within one week of discharge from [facility]. She has a history of bipolar d/o and is presenting with bizarre presentation. She has a history of opiate use, in remission with buprenorphine. Patient is grossly disorganized with poor impulse control. She merits hospitalization for immediate safety and continued stabilization. Plan - Plan Treatment Plan: Name: KAL PRICE Birthdate: 1990 [id number] continue acute intensive psychiatric treatment. decrease to q15min obs and hold staff pass. change lurasidone to paliperidone 6mg daily. increase clonazepam to 1mg BID and add benztropine. Continued Medication Management: Start Medication Medications: Current Medications Acetaminophen (Tylenol Tab*) 650 mg PO Q4H PRN PRN Reason: for pain; or Temp >101 F Last Admin: 07/12/18 15:55 Dose: 650 mg Al Hydrox/Mg Hydrox/Simethicone (Maalox Plus*) 30 ml PO Q4H PRN PRN Reason: INDIGESTION Benzocaine (Orajel 10%*) 1 applic TOPICAL QID PRN PRN Reason: .TOOTHACHE Last Admin: 07/08/18 22:14 Dose: 1 applic Benztropine Mesylate (Cogentin Tab*) 1 mg PO BID [facility] Last Admin: 07/12/18 13:10 Dose: 1 mg Buprenorphine HCl (Subutex Tab*) 8 mg SL BID@0800,1600 [facility] Last Admin: 07/12/18 15:54 Dose: 8 mg Clonazepam (Klonopin Tab(*)) 1 mg PO BID [facility] Gabapentin (Neurontin Cap(*)) 600 mg PO BEDTIME [facility] Last Admin: 07/11/18 19:59 Dose: 600 mg Gabapentin (Neurontin Cap(*)) 300 mg PO DAILY [facility] Last Admin: 07/12/18 09:49 Dose: 300 mg Haloperidol (Haldol Tab*) 5 mg PO Q6H PRN PRN Reason: AGITATION Hydroxyzine HCl (Atarax Tab*) 100 mg PO Q6H PRN PRN Reason: ANXIETY Last Admin: 07/12/18 15:54 Dose: 100 mg Ibuprofen (Motrin Tab*) 600 mg PO Q6H PRN PRN Reason: PAIN Last Admin: 07/12/18 12:47 Dose: 600 mg Multi-Ingredient Mouthwash/Gargle (Magic Mouth Was-Rafael/Maal/Lido*) 5 ml SWISH SPIT QID PRN PRN Reason: mouth pain Last Admin: 07/11/18 03:00 Dose: 5 ml Multivitamins (Theragran Tab*) 1 tab PO DAILY [facility] Last Admin: 07/12/18 09:49 Dose: 1 tab Nicotine (Nicotine Inhaler*) 10 mg INH Q2H PRN PRN Reason: CRAVING Last Admin: 07/12/18 12:47 Dose: 10 mg Nicotine (Nicotine Patch 21 Mg/24 Hr*) 1 patch TRANSDERM DAILY@0800 [facility] Last Admin: 07/12/18 09:14 Dose: 1 patch Nicotine Polacrilex (Nicotine Gum*) 2 mg PO Q2H PRN PRN Reason: CRAVING Last Admin: 07/12/18 13:10 Dose: 2 mg Paliperidone (Invega Er Tab*) 6 mg PO DAILY [facility] Last Admin: 07/12/18 12:44 Dose: 6 mg Pharmacy Profile Note (Nicotine Patch Removal Note*) 1 note FOLLOW UP 2100 [facility] Last Admin: 07/12/18 11:00 Dose: 1 note Propranolol HCl (Inderal Tab*) 20 mg PO BID [facility] Last Admin: 07/12/18 09:50 Dose: 20 mg Throat Lozenges (Chloraseptic Caesar*) 1 caesar MT Q2HR PRN PRN Reason: SORE THROAT Last Admin: 07/12/18 07:55 Dose: 1 caesar - Discharge Plan Discharge Plan: Inpatient Hospitalization
--- NOTE | 2018-07-12 16:36 | PN ---
[facility]: Group Therapy Note - Service Type Service Type: [id number] Group Psychotherapy - Medication Education Group: Patient presented as disorganized and disruptive in discussion and needed repeated redirection to attend to presented materials.
[2018-07-12] MEDS: Haloperidol TAB* 5 MG PO PRN (18:10)
--- NOTE | 2018-07-12 19:01 | PN ---
Hospitalist Progress Note Date of Service: 07/12/18 Asked to evaluate patient for restraints. Upon arrival patient is calm and cooperative. She has deescalated. She is awake and alert times three. LUNGS cta. Heart s1 s2 RRR. Abdomen soft flat non tender, bowel sounds times three, At this point restraints removed and patient stable. We re-eval PRN.
[2018-07-12] MEDS: clonazePAM TAB(*) 1 MG PO SCH ×2 (20:33→22:36)
[2018-07-12] MEDS: Magic Mouth Was-BEN/MAAL/LIDO SWISH SPIT PRN (23:23)
[2018-07-13] MEDS: Benzocaine (DENTAL) 10%* TOP.GEL TOPICAL PRN (00:56)
[2018-07-13] MEDS: hydrOXYzine HCL TAB* 50 MG PO PRN ×3 (00:57→21:39)
[2018-07-13] MEDS: Haloperidol TAB* 5 MG PO PRN (00:57)
[2018-07-13] MEDS: Ibuprofen TAB* 600 MG PO PRN ×2 (07:05→21:41)
[2018-07-13] MEDS: Propranolol TAB* 20 MG PO SCH (10:07)
[2018-07-13] MEDS: Paliperidone ER TAB* 6 MG TAB.ER PO SCH (10:07)
[2018-07-13] MEDS: clonazePAM TAB(*) 1 MG PO SCH ×2 (10:07→11:24)
[2018-07-13] MEDS: Benztropine TAB* 1 MG PO SCH (10:07)
[2018-07-13] MEDS: Gabapentin CAP(*) 300 MG PO SCH ×2 (10:07→21:39)
[2018-07-13] MEDS: Vitamin THERAPEUTIC TAB PO SCH (10:08)
[2018-07-13] MEDS: Buprenorphine TAB* 8 MG SL SCH (10:09)
[2018-07-13] MEDS: Nicotine PATCH 21 MG/24 HR* PATCH TRANSDERM SCH (10:10)
[2018-07-13] MEDS ORDERED: Paliperidone ER TAB* 3 MG TAB.ER PO ONE (10:27)
[2018-07-13] MEDS: Divalproex DR TAB(*) 500 MG PO SCH ×3 (11:24→21:54)
[2018-07-13] MEDS: Acetaminophen TAB* 325 MG PO PRN ×3 (11:24→23:56)
[2018-07-13] MEDS ORDERED: clonazePAM TAB(*) 1 MG PO PRN (12:52)
--- NOTE | 2018-07-13 13:03 | PN ---
Subjective - Subjective Date of Service: 07/13/18 Service Type: [id number] Hosp care 15 min low complexity Subjective: Patient required emergency medications and locked seclusion during the tube skiver due to psychotic agitation. She presents with paranoid ideation and persecutory delusions. Patient accepted medications changes, including increase in paliperidone and first dose of depakote. Noted to be falling asleep in chair in milieu. She was cooperative with being assisted to her bed and is sleeping at this time. Objective - General Observations Appearance: Disheveled Appears Stated Age: No - younger Stature: WNL Posture: WNL Eye Contact: Average Behavior/Activity: Slowed - at time of evaluation - Interaction Observations Attitude Towards Examiner: Anxious, Defensive, Demanding Stated Mood: Irritable Affect: Blunted Speech Pattern/Tone: Pressured Thought Process: Disorganized Thought Content: Paranoid, Grandiose Thought Process: Lethality: Paranoid Ideation Hallucination Type: Denies Delusion Type: Persecution - Cognitive Function Orientation: A&O x 4 Level of Consciousness: Alert Cognition: WNL, Impaired Reading Estimated Intelligence: Normal Insight: Difficulty Acknowledging Presence of Psyciatric Problems Judgment Within Normal Limits: No Ability to Make Reasonable Decisions: Serverely Impaired - Medication Compliance Cooperative with Inpatient Medication Regimen: Yes - Group Participation Participates in Group Activities: Partial Assessment - Assessment Merits Inpatient Hospitalization: For Immediate Safety, For Stabilization Inpatient DSM-V Dx: F31.2 Clinical Impression: 28yo wf who returns to ED within one week of discharge from [facility]. She has a history of bipolar d/o and is presenting with bizarre presentation. She has a history of opiate use, in remission with buprenorphine. Patient is grossly disorganized with poor impulse control. She merits hospitalization for immediate safety and continued stabilization. Plan - Plan Treatment Plan: Name: KAL PRICE Birthdate: 1990 [id number] continue acute intensive psychiatric treatment. decrease to q15min obs and hold staff pass. increase paliperidone to 9mg, add depakote DR 500mg BID. change clonazepam to 1mg BID prn agitation/anxiety. DC benztropine. Continued Medication Management: Start Medication Medications: Current Medications Acetaminophen (Tylenol Tab*) 650 mg PO Q4H PRN PRN Reason: for pain; or Temp >101 F Last Admin: 07/13/18 11:24 Dose: 325 mg Al Hydrox/Mg Hydrox/Simethicone (Maalox Plus*) 30 ml PO Q4H PRN PRN Reason: INDIGESTION Benzocaine (Orajel 10%*) 1 applic TOPICAL QID PRN PRN Reason: .TOOTHACHE Last Admin: 07/13/18 00:56 Dose: 1 applic Buprenorphine HCl (Subutex Tab*) 8 mg PO 0800,1600 [facility] Clonazepam (Klonopin Tab(*)) 1 mg PO BID PRN PRN Reason: agiation/anxiety Divalproex Sodium (Depakote Dr Tab(*)) 500 mg PO BID [facility] Last Admin: 07/13/18 11:24 Dose: 500 mg Gabapentin (Neurontin Cap(*)) 600 mg PO BEDTIME [facility] Last Admin: 07/12/18 20:30 Dose: 600 mg Gabapentin (Neurontin Cap(*)) 300 mg PO DAILY [facility] Last Admin: 07/13/18 10:07 Dose: 300 mg Haloperidol (Haldol Tab*) 5 mg PO Q6H PRN PRN Reason: AGITATION Last Admin: 07/13/18 00:57 Dose: 5 mg Hydroxyzine HCl (Atarax Tab*) 100 mg PO Q6H PRN PRN Reason: ANXIETY Last Admin: 07/13/18 07:04 Dose: 100 mg Ibuprofen (Motrin Tab*) 600 mg PO Q6H PRN PRN Reason: PAIN Last Admin: 07/13/18 07:05 Dose: 600 mg Multi-Ingredient Mouthwash/Gargle (Magic Mouth Was-Rafael/Maal/Lido*) 5 ml SWISH SPIT QID PRN PRN Reason: mouth pain Last Admin: 07/12/18 23:23 Dose: 5 ml Multivitamins (Theragran Tab*) 1 tab PO DAILY [facility] Last Admin: 07/13/18 10:08 Dose: 1 tab Nicotine (Nicotine Inhaler*) 10 mg INH Q2H PRN PRN Reason: CRAVING Last Admin: 07/12/18 12:47 Dose: 10 mg Nicotine (Nicotine Patch 21 Mg/24 Hr*) 1 patch TRANSDERM DAILY@0800 [facility] Last Admin: 07/13/18 10:10 Dose: 1 patch Nicotine Polacrilex (Nicotine Gum*) 2 mg PO Q2H PRN PRN Reason: CRAVING Last Admin: 07/12/18 13:10 Dose: 2 mg Paliperidone (Invega Er Tab*) 9 mg PO DAILY [facility] Pharmacy Profile Note (Nicotine Patch Removal Note*) 1 note FOLLOW UP 2100 [facility] Last Admin: 07/12/18 20:34 Dose: 1 note Throat Lozenges (Chloraseptic Caesar*) 1 caesar MT Q2HR PRN PRN Reason: SORE THROAT Last Admin: 07/12/18 07:55 Dose: 1 caesar - Discharge Plan Discharge Plan: Inpatient Hospitalization
[2018-07-13] MEDS: Buprenorphine TAB* 8 MG PO SCH (21:41)
[2018-07-13] MEDS: Nicotine Patch Removal NOTE FOLLOW UP SCH (21:53)
[2018-07-13] MEDS: Magic Mouth Was-BEN/MAAL/LIDO SWISH SPIT PRN (23:25)
[2018-07-14] MEDS: Nicotine Inhaler* 10 MG AMP INH PRN ×2 (05:29→14:20)
[2018-07-14] MEDS: Magic Mouth Was-BEN/MAAL/LIDO SWISH SPIT PRN ×4 (05:30→21:11)
[2018-07-14] MEDS: hydrOXYzine HCL TAB* 50 MG PO PRN ×2 (05:30→22:46)
[2018-07-14] MEDS: Ibuprofen TAB* 600 MG PO PRN ×3 (05:30→19:39)
[2018-07-14] MEDS: Acetaminophen TAB* 325 MG PO PRN ×3 (05:30→22:48)
[2018-07-14] MEDS: Divalproex DR TAB(*) 500 MG PO SCH ×2 (07:53→21:05)
[2018-07-14] MEDS: Buprenorphine TAB* 8 MG PO SCH ×2 (07:53→16:04)
[2018-07-14] MEDS: Gabapentin CAP(*) 300 MG PO SCH (07:53)
[2018-07-14] MEDS: Vitamin THERAPEUTIC TAB PO SCH (08:56)
[2018-07-14] MEDS ORDERED: Paliperidone ER TAB* 6 MG TAB.ER PO SCH (09:00)
[2018-07-14] MEDS: Benzocaine (DENTAL) 10%* TOP.GEL TOPICAL PRN ×2 (10:02→13:41)
[2018-07-14] MEDS ORDERED: Mouth Piece, Nicotine* 1 EACH CARTRIDGE ONE ×2 (10:05→14:20)
--- NOTE | 2018-07-14 11:42 | PN ---
Subjective - Subjective Date of Service: 07/14/18 Service Type: [id number] Hosp care 35 min high complexity Subjective: Patient slept the majority of the day and evening yesterday. She slept approx 3 hour during tour coordinator, has been awake since approx 0430. Patient VS indicate hypovolemia. Will continue to monitor. She reports significant neck, headache and back pain. Nursing instructed to hold antipyretics to assess for fever. Will obtain cbc, cmp and repeat urinalysis. patient presents with droopy eyes and restlessness. she c/o feeling anxious. During conversation, patient tearful and endorses irritability and mood lability. She reports desire to return to [facility] and that "I felt happy on that !" Patient education done regarding bipolar d/o and manic symptoms. She agrees to continue titration of depakote. Objective - General Observations Appearance: Disheveled Stature: WNL Posture: Tense Eye Contact: Average Behavior/Activity: WNL - Interaction Observations Attitude Towards Examiner: Cooperative, Anxious Stated Mood: Irritable Affect: Blunted - tearful at times Speech Pattern/Tone: Clear, Pressured, Quiet Volume Thought Process: Disorganized Perception: WNL Thought Content: Paranoid, Self-Deprecatory Thought Process: Lethality: Paranoid Ideation Hallucination Type: None Delusion Type: Denies - Cognitive Function Orientation: A&O x 4 Level of Consciousness: Alert Cognition: WNL, Impaired Reading Estimated Intelligence: Normal Judgment Within Normal Limits: No Ability to Make Reasonable Decisions: Serverely Impaired - Medication Compliance Cooperative with Inpatient Medication Regimen: Yes - Group Participation Participates in Group Activities: Partial Assessment - Assessment Merits Inpatient Hospitalization: For Immediate Safety, For Stabilization Inpatient DSM-V Dx: F31.2 Clinical Impression: 28yo wf who returns to ED within one week of discharge from [facility]. She has a history of bipolar d/o and is presenting with bizarre presentation. She has a history of opiate use, in remission with buprenorphine. Patient is grossly disorganized with poor impulse control. She is medication adherent while trialing mood stabilizer and antipsychotic. She merits hospitalization for immediate safety and continued stabilization. Plan - Plan Treatment Plan: Name: KAL PRICE Birthdate: 1990 [id number] continue acute intensive psychiatric treatment. continue q15min obs and hold staff pass. increase HS dose of depakote, restart propranolol and clonazepam. obtain UA, cbc and cmp. Continued Medication Management: Start Medication Medications: Current Medications Acetaminophen (Tylenol Tab*) 650 mg PO Q4H PRN PRN Reason: for pain; or Temp >101 F Last Admin: 07/14/18 05:30 Dose: 650 mg Al Hydrox/Mg Hydrox/Simethicone (Maalox Plus*) 30 ml PO Q4H PRN PRN Reason: INDIGESTION Benzocaine (Orajel 10%*) 1 applic TOPICAL QID PRN PRN Reason: .TOOTHACHE Last Admin: 07/14/18 10:02 Dose: 1 applic Buprenorphine HCl (Subutex Tab*) 8 mg PO 0800,1600 [facility] Last Admin: 07/14/18 07:53 Dose: 8 mg Clonazepam (Klonopin Tab(*)) 0.5 mg PO BID [facility] Divalproex Sodium (Depakote Dr Tab(*)) 1,000 mg PO BEDTIME [facility] Divalproex Sodium (Depakote Dr Tab(*)) 500 mg PO DAILY [facility] Haloperidol (Haldol Tab*) 5 mg PO Q6H PRN PRN Reason: AGITATION Last Admin: 07/13/18 00:57 Dose: 5 mg Hydroxyzine HCl (Atarax Tab*) 100 mg PO Q6H PRN PRN Reason: ANXIETY Last Admin: 07/14/18 05:30 Dose: 100 mg Ibuprofen (Motrin Tab*) 600 mg PO Q6H PRN PRN Reason: PAIN Last Admin: 07/14/18 05:30 Dose: 600 mg Lidocaine (Lidoderm 5% Patch*) 1 patch TRANSDERM DAILY [facility] Multi-Ingredient Mouthwash/Gargle (Magic Mouth Was-Rafael/Maal/Lido*) 5 ml SWISH SPIT QID PRN PRN Reason: mouth pain Last Admin: 07/14/18 10:00 Dose: 5 ml Multivitamins (Theragran Tab*) 1 tab PO DAILY [facility] Last Admin: 07/14/18 08:56 Dose: Not Given Nicotine (Nicotine Inhaler*) 10 mg INH Q2H PRN PRN Reason: CRAVING Last Admin: 07/14/18 05:29 Dose: 10 mg Nicotine (Nicotine Patch 21 Mg/24 Hr*) 1 patch TRANSDERM DAILY@0800 [facility] Last Admin: 07/13/18 10:10 Dose: 1 patch Nicotine Polacrilex (Nicotine Gum*) 2 mg PO Q2H PRN PRN Reason: CRAVING Last Admin: 07/12/18 13:10 Dose: 2 mg Paliperidone (Invega Er Tab*) 9 mg PO DAILY [facility] Last Admin: 07/14/18 07:53 Dose: 9 mg Pharmacy Profile Note (Nicotine Patch Removal Note*) 1 note FOLLOW UP 2099 [facility] Last Admin: 07/13/18 21:53 Dose: 1 note Pharmacy Profile Note (Lidocaine Patch Remove*) 1 note PATCH OFF 2099 [facility] Propranolol HCl (Inderal Tab*) 20 mg PO BID [facility] Throat Lozenges (Chloraseptic Caesar*) 1 caesar MT Q2HR PRN PRN Reason: SORE THROAT Last Admin: 07/12/18 07:55 Dose: 1 caesar - Discharge Plan Discharge Plan: Inpatient Hospitalization
[2018-07-14 11:55] LABS: ABS Basophils 0.1 10^3/ul (0-0.2); ABS Eosinophils 0.3 10^3/ul (0-0.6); ABS Lymphocytes 3.3 10^3/ul (1.0-4.8); ABS Monocytes 0.8 10^3/ul (0-0.8); ABS Nucleated RBC 0 10^3/ul; Eosinophil % 2.1 %; Hematocrit 36 % (33-41); Lymphocyte % 22.8 %; Mean Corpuscular HGB Conc 33 g/dL (31-36); Mean Corpuscular Hemoglobin 29 pg (27-31); Mean Corpuscular Volume 85 fL (80-97); Mean Platelet Volume 7.5 fL (7.4-10.4); Nucleated Red Blood Cells % 0; Platelet Count 291 10^3/uL (150-450); Red Blood Count 4.22 10^6 /uL (3.70-4.87); Red Cell Distribution Width 14 % (10.5-15); White Blood Count 14.5 10^3/uL (3.5-10.8)
[2018-07-14] MEDS: clonazePAM TAB(*) 0.5 MG PO SCH ×2 (11:57→21:04)
[2018-07-14] MEDS: Lidocaine PATCH 5%* 1 PATCH TRANSDERM SCH (11:57)
[2018-07-14] MEDS: Propranolol TAB* 20 MG PO SCH ×2 (11:57→21:05)
[2018-07-14] MEDS: Nicotine PATCH 21 MG/24 HR* PATCH TRANSDERM SCH (11:58)
[2018-07-14 12:14] LABS: Albumin 4.6 g/dL (3.2-5.2); Albumin/Globulin Ratio 1.8 (1-3); BUN/Creatinine Ratio 17.3 (8-20); Calcium 9.8 mg/dL (8.6-10.3); EGFR Non-African American 68.6 (>60); Globulin 2.6 g/dL (2-4); Potassium 3.8 mmol/L (3.5-5.0); Total Bilirubin 0.4 mg/dL (0.2-1.0); Total Protein 7.2 g/dL (6.4-8.9)
[2018-07-14] MEDS: Nicotine GUM* 2 MG PO PRN (14:20)
[2018-07-14] MEDS: Lidocaine Patch REMOVE* 1 NOTE MISC PATCH OFF SCH (21:13)
[2018-07-14] MEDS: Nicotine Patch Removal NOTE FOLLOW UP SCH (21:14)
[2018-07-14] MEDS: Haloperidol TAB* 5 MG PO PRN (22:46)
[2018-07-15] MEDS: hydrOXYzine HCL TAB* 50 MG PO PRN ×2 (06:25→16:28)
[2018-07-15] MEDS: Magic Mouth Was-BEN/MAAL/LIDO SWISH SPIT PRN ×2 (06:25→22:00)
[2018-07-15] MEDS: Ibuprofen TAB* 600 MG PO PRN ×2 (06:25→16:27)
[2018-07-15] MEDS: Vitamin THERAPEUTIC TAB PO SCH (08:26)
[2018-07-15] MEDS: clonazePAM TAB(*) 0.5 MG PO SCH ×2 (08:27→20:51)
[2018-07-15] MEDS: Divalproex DR TAB(*) 500 MG PO SCH ×2 (08:27→20:51)
[2018-07-15] MEDS: Paliperidone ER TAB* 9 MG TAB.ER PO SCH (08:28)
[2018-07-15] MEDS: Propranolol TAB* 20 MG PO SCH ×2 (08:30→20:52)
[2018-07-15] MEDS: Buprenorphine TAB* 8 MG PO SCH ×2 (08:31→16:27)
[2018-07-15] MEDS: Nicotine PATCH 21 MG/24 HR* PATCH TRANSDERM SCH (09:57)
[2018-07-15] MEDS: Nicotine Inhaler* 10 MG AMP INH PRN ×3 (10:00→22:04)
[2018-07-15] MEDS: Nicotine GUM* 2 MG PO PRN ×3 (10:00→22:07)
[2018-07-15] MEDS: Lidocaine PATCH 5%* 1 PATCH TRANSDERM SCH (10:01)
[2018-07-15] MEDS: Acetaminophen TAB* 325 MG PO PRN ×2 (11:30→18:08)
[2018-07-15] MEDS: Lidocaine Patch REMOVE* 1 NOTE MISC PATCH OFF SCH (21:03)
[2018-07-15] MEDS: Nicotine Patch Removal NOTE FOLLOW UP SCH (21:03)
[2018-07-15] MEDS ORDERED: Mouth Piece, Nicotine* 1 EACH CARTRIDGE ONE (22:04)
[2018-07-16] MEDS: Magic Mouth Was-BEN/MAAL/LIDO SWISH SPIT PRN ×4 (00:40→20:37)
[2018-07-16] MEDS: hydrOXYzine HCL TAB* 50 MG PO PRN ×3 (00:40→21:51)
[2018-07-16] MEDS: Ibuprofen TAB* 600 MG PO PRN ×2 (00:40→11:53)
[2018-07-16] MEDS: Nicotine Inhaler* 10 MG AMP INH PRN ×3 (01:59→16:00)
[2018-07-16] MEDS: Acetaminophen TAB* 325 MG PO PRN ×3 (02:10→20:19)
[2018-07-16] MEDS: Haloperidol TAB* 5 MG PO PRN (02:10)
[2018-07-16] MEDS: clonazePAM TAB(*) 0.5 MG PO SCH ×2 (07:59→20:16)
[2018-07-16] MEDS: Divalproex DR TAB(*) 500 MG PO SCH ×2 (07:59→20:16)
[2018-07-16] MEDS: Vitamin THERAPEUTIC TAB PO SCH (07:59)
[2018-07-16] MEDS: Paliperidone ER TAB* 9 MG TAB.ER PO SCH (08:00)
[2018-07-16] MEDS: Propranolol TAB* 20 MG PO SCH ×2 (08:01→20:17)
[2018-07-16] MEDS ORDERED: Mouth Piece, Nicotine* 1 EACH CARTRIDGE ONE ×2 (08:13→15:59)
[2018-07-16] MEDS: Nicotine PATCH 21 MG/24 HR* PATCH TRANSDERM SCH (08:40)
[2018-07-16] MEDS: Buprenorphine TAB* 8 MG PO SCH ×2 (08:53→15:58)
[2018-07-16] MEDS: Nicotine GUM* 2 MG PO PRN ×3 (10:22→16:01)
[2018-07-16] MEDS: Lidocaine PATCH 5%* 1 PATCH TRANSDERM SCH (10:24)
[2018-07-16] MEDS: Benzocaine (DENTAL) 10%* TOP.GEL TOPICAL PRN (11:55)
[2018-07-16 17:37] LABS: Urine Appearance Cloudy; Urine Bacteria Absent (Absent); Urine Bilirubin Negative (Negative); Urine Blood Negative (Negative); Urine Color Yellow; Urine Glucose Negative (Negative); Urine Ketones Trace (Negative); Urine Nitrite Negative (Negative); Urine Protein 1+(30 mg/dL) (Negative); Urine Red Blood Cell 3+(>10/hpf) (Absent); Urine Specific Gravity 1.024 (1.010-1.030); Urine Squamous Epithelial Cell Present (Absent); Urine Urobilinogen Negative (Negative); Urine White Blood Cell 3+(>20/hpf) (Absent)
[2018-07-16] MEDS: Nicotine Patch Removal NOTE FOLLOW UP SCH (21:54)
[2018-07-16] MEDS: Lidocaine Patch REMOVE* 1 NOTE MISC PATCH OFF SCH (21:54)
[2018-07-17] MEDS: clonazePAM TAB(*) 0.5 MG PO SCH ×2 (08:07→20:59)
[2018-07-17] MEDS: Propranolol TAB* 20 MG PO SCH ×2 (08:08→21:00)
[2018-07-17] MEDS: Vitamin THERAPEUTIC TAB PO SCH (08:08)
[2018-07-17] MEDS: Divalproex DR TAB(*) 500 MG PO SCH ×2 (08:10→21:00)
[2018-07-17] MEDS: Ibuprofen TAB* 600 MG PO PRN (08:10)
[2018-07-17] MEDS: Buprenorphine TAB* 8 MG PO SCH ×2 (08:11→17:01)
[2018-07-17] MEDS: Lidocaine PATCH 5%* 1 PATCH TRANSDERM SCH (08:16)
[2018-07-17] MEDS: Nicotine PATCH 21 MG/24 HR* PATCH TRANSDERM SCH (08:16)
[2018-07-17] MEDS: Paliperidone ER TAB* 9 MG TAB.ER PO SCH (08:31)
[2018-07-17] MEDS: Nicotine Inhaler* 10 MG AMP INH PRN ×2 (08:33→14:26)
[2018-07-17] MEDS: Nicotine GUM* 2 MG PO PRN ×4 (08:33→22:51)
[2018-07-17] MEDS ORDERED: Fluconazole 150 MG TAB PO ONE (10:07)
--- NOTE | 2018-07-17 10:59 | PN ---
Subjective - Subjective Date of Service: 07/17/18 Service Type: [id number] Hosp care 25 min moderate complexity Subjective: Patient is working on making bead bracelet upon approach. She is pleasant and in behavioral control. Per staff, over the weekend she exhibited paranoid ideation, irritability and restlessness. Patient reports feeling improved today and states she can tell that her thoughts are better organized. She inquires about medications for pain and sleep. We agree to reinstate gabapentin and patient requests that this is "as needed." She states "what happened at court?" and copywriter reminds patient that this was postponed until further notice, that she will need to call court to reschedule when she is discharged from hospital. Objective - General Observations Appearance: Neat Stature: WNL Posture: Tense Eye Contact: Average Behavior/Activity: WNL - Interaction Observations Attitude Towards Examiner: Cooperative Stated Mood: Euthymic Affect: Full Speech Pattern/Tone: Clear, Appropriate, Normal Volume Thought Process: Coherent Perception: WNL Thought Content: WNL Thought Process: Lethality: Paranoid Ideation Hallucination Type: Denies Delusion Type: Denies - Cognitive Function Orientation: A&O x 4 Level of Consciousness: Alert Cognition: WNL Estimated Intelligence: Normal Insight: WNL Judgment Within Normal Limits: No Ability to Make Reasonable Decisions: Mildly Impaired - Medication Compliance Cooperative with Inpatient Medication Regimen: Yes - Group Participation Participates in Group Activities: Partial Assessment - Assessment Merits Inpatient Hospitalization: For Immediate Safety, For Stabilization, Consolidate Improvements Inpatient DSM-V Dx: F31.2 Clinical Impression: 28yo wf who returns to ED within one week of discharge from [facility]. She has a history of bipolar d/o and is presenting with bizarre presentation. She has a history of opiate use, in remission with buprenorphine. Patient is grossly disorganized with poor impulse control. She is medication adherent while trialing mood stabilizer and antipsychotic. She merits hospitalization for immediate safety and continued stabilization. Plan - Plan Treatment Plan: Name: KAL PRICE Birthdate: 1990 [id number] continue acute intensive psychiatric treatment. continue q15min obs and hold staff pass. obtain valproic acid trough evening of 07/17. consider increase in depakote. medication changes: diflucan 150mg x1, bactrim DS BID x7d, gabapentin 300mg TID prn pain/anxiety. Continued Medication Management: Start Medication Medications: Current Medications Acetaminophen (Tylenol Tab*) 650 mg PO Q4H PRN PRN Reason: for pain; or Temp >101 F Last Admin: 07/16/18 20:19 Dose: 650 mg Al Hydrox/Mg Hydrox/Simethicone (Maalox Plus*) 30 ml PO Q4H PRN PRN Reason: INDIGESTION Benzocaine (Orajel 10%*) 1 applic TOPICAL QID PRN PRN Reason: .TOOTHACHE Last Admin: 07/16/18 11:55 Dose: 1 applic Buprenorphine HCl (Subutex Tab*) 8 mg PO 0800,1600 [facility] Last Admin: 07/17/18 08:11 Dose: 8 mg Clonazepam (Klonopin Tab(*)) 0.5 mg PO BID [facility] Last Admin: 07/17/18 08:07 Dose: 0.5 mg Divalproex Sodium (Depakote Dr Tab(*)) 1,000 mg PO BEDTIME [facility] Last Admin: 07/16/18 20:16 Dose: 1,000 mg Divalproex Sodium (Depakote Dr Tab(*)) 500 mg PO DAILY [facility] Last Admin: 07/17/18 08:10 Dose: 500 mg Haloperidol (Haldol Tab*) 5 mg PO Q6H PRN PRN Reason: AGITATION Last Admin: 07/16/18 02:10 Dose: 5 mg Hydroxyzine HCl (Atarax Tab*) 100 mg PO Q6H PRN PRN Reason: ANXIETY Last Admin: 07/16/18 21:51 Dose: 100 mg Ibuprofen (Motrin Tab*) 600 mg PO Q6H PRN PRN Reason: PAIN Last Admin: 07/17/18 08:10 Dose: 600 mg Lidocaine (Lidoderm 5% Patch*) 1 patch TRANSDERM DAILY [facility] Last Admin: 07/17/18 08:16 Dose: 1 patch Multi-Ingredient Mouthwash/Gargle (Magic Mouth Was-Rafael/Maal/Lido*) 5 ml SWISH SPIT QID PRN PRN Reason: mouth pain Last Admin: 07/16/18 20:37 Dose: 5 ml Multivitamins (Theragran Tab*) 1 tab PO DAILY [facility] Last Admin: 07/17/18 08:08 Dose: 1 tab Nicotine (Nicotine Inhaler*) 10 mg INH Q2H PRN PRN Reason: CRAVING Last Admin: 07/17/18 08:33 Dose: 10 mg Nicotine (Nicotine Patch 21 Mg/24 Hr*) 1 patch TRANSDERM DAILY@0800 [facility] Last Admin: 07/17/18 08:16 Dose: 1 patch Nicotine Polacrilex (Nicotine Gum*) 2 mg PO Q2H PRN PRN Reason: CRAVING Last Admin: 07/17/18 08:33 Dose: 2 mg Paliperidone (Invega Er Tab*) 9 mg PO DAILY [facility] Last Admin: 07/17/18 08:31 Dose: 9 mg Pharmacy Profile Note (Nicotine Patch Removal Note*) 1 note FOLLOW UP 2099 [facility] Last Admin: 07/16/18 21:54 Dose: 1 note Pharmacy Profile Note (Lidocaine Patch Remove*) 1 note PATCH OFF 2099 [facility] Last Admin: 07/16/18 21:54 Dose: 1 note Propranolol HCl (Inderal Tab*) 20 mg PO BID [facility] Last Admin: 07/17/18 08:08 Dose: 20 mg Throat Lozenges (Chloraseptic Caesar*) 1 caesar MT Q2HR PRN PRN Reason: SORE THROAT Last Admin: 07/12/18 07:55 Dose: 1 caesar Trimethoprim/Sulfamethoxazole (Bactrim Ds 800/160 Tab*) 1 tab PO BID [facility] Stop: 07/24/18 10:59 - Discharge Plan Discharge Plan: Inpatient Hospitalization
[2018-07-17] MEDS: hydrOXYzine HCL TAB* 50 MG PO PRN ×2 (12:09→18:58)
[2018-07-17] MEDS: Sulfamethox/Trimethoprim DS 800/160* TAB PO SCH ×2 (12:10→21:00)
[2018-07-17] MEDS: Gabapentin CAP(*) 300 MG PO PRN (12:10)
[2018-07-17] MEDS ORDERED: Mouth Piece, Nicotine* 1 EACH CARTRIDGE ONE (14:24)
[2018-07-17] MEDS: Mouth Piece, Nicotine* 1 EACH CARTRIDGE INH ONE (14:27)
[2018-07-17] MEDS: Magic Mouth Was-BEN/MAAL/LIDO SWISH SPIT PRN (20:59)
[2018-07-17] MEDS: Lidocaine Patch REMOVE* 1 NOTE MISC PATCH OFF SCH (21:00)
[2018-07-17] MEDS: Nicotine Patch Removal NOTE FOLLOW UP SCH (21:00)
[2018-07-18] MEDS: Nicotine GUM* 2 MG PO PRN ×5 (02:43→20:31)
[2018-07-18] MEDS: hydrOXYzine HCL TAB* 50 MG PO PRN ×3 (05:12→21:58)
[2018-07-18] MEDS: Buprenorphine TAB* 8 MG PO SCH ×2 (08:20→16:47)
[2018-07-18] MEDS: Nicotine PATCH 21 MG/24 HR* PATCH TRANSDERM SCH (08:21)
[2018-07-18] MEDS: Sulfamethox/Trimethoprim DS 800/160* TAB PO SCH ×2 (08:21→20:31)
[2018-07-18] MEDS: Vitamin THERAPEUTIC TAB PO SCH (08:21)
[2018-07-18] MEDS: clonazePAM TAB(*) 0.5 MG PO SCH ×2 (08:21→20:33)
[2018-07-18] MEDS: Divalproex DR TAB(*) 500 MG PO SCH ×2 (08:22→20:32)
[2018-07-18] MEDS: Lidocaine PATCH 5%* 1 PATCH TRANSDERM SCH (08:23)
[2018-07-18] MEDS: Paliperidone ER TAB* 9 MG TAB.ER PO SCH (08:23)
[2018-07-18] MEDS: Propranolol TAB* 20 MG PO SCH ×2 (08:24→20:37)
[2018-07-18] MEDS: Nicotine Inhaler* 10 MG AMP INH PRN ×5 (08:29→20:31)
[2018-07-18] MEDS ORDERED: Divalproex DR TAB(*) 250 MG PO ONE (09:00)
[2018-07-18] MEDS: Gabapentin CAP(*) 300 MG PO PRN ×2 (10:14→17:47)
[2018-07-18] MEDS: Magic Mouth Was-BEN/MAAL/LIDO SWISH SPIT PRN ×2 (10:26→15:00)
[2018-07-18] MEDS: Acetaminophen TAB* 325 MG PO PRN ×2 (15:00→21:58)
[2018-07-18] MEDS: Ibuprofen TAB* 600 MG PO PRN (20:32)
[2018-07-18] MEDS: Nicotine Patch Removal NOTE FOLLOW UP SCH (21:36)
[2018-07-18] MEDS: Lidocaine Patch REMOVE* 1 NOTE MISC PATCH OFF SCH (21:36)
[2018-07-19] MEDS: Divalproex DR TAB(*) 250 MG PO SCH (09:25)
[2018-07-19] MEDS: Paliperidone ER TAB* 9 MG TAB.ER PO SCH (09:25)
[2018-07-19] MEDS: Buprenorphine TAB* 8 MG PO SCH ×3 (09:25→16:41)
[2018-07-19] MEDS: Vitamin THERAPEUTIC TAB PO SCH (09:26)
[2018-07-19] MEDS: Lidocaine PATCH 5%* 1 PATCH TRANSDERM SCH (09:26)
[2018-07-19] MEDS: Nicotine PATCH 21 MG/24 HR* PATCH TRANSDERM SCH (09:26)
[2018-07-19] MEDS: Propranolol TAB* 20 MG PO SCH ×2 (09:26→20:26)
[2018-07-19] MEDS: Sulfamethox/Trimethoprim DS 800/160* TAB PO SCH ×2 (09:26→20:26)
[2018-07-19] MEDS: Nicotine Inhaler* 10 MG AMP INH PRN ×3 (09:26→20:25)
[2018-07-19] MEDS: Nicotine GUM* 2 MG PO PRN ×3 (09:26→20:32)
[2018-07-19] MEDS: clonazePAM TAB(*) 0.5 MG PO SCH (10:43)
--- NOTE | 2018-07-19 13:56 | PN ---
Subjective - Subjective Date of Service: 07/19/18 Service Type: [id number] Hosp care 15 min low complexity Subjective: Patient has been c/o high anxiety despite appearing drowsy. She has been encouraged to lie down and rest but often walks about unit. She is completing ADLs, at times needing staff assistance due to disorganization. She avoids her room, endorsing paranoid ideation. Today, she is resting moreso and appears to be sleeping at this time. Objective - General Observations Appearance: Neat Stature: WNL Posture: Other (See Comment) - lying down Behavior/Activity: Slowed - Interaction Observations Attitude Towards Examiner: Other (See Comment) - sleeping Stated Mood: Expansive Affect: Blunted Speech Pattern/Tone: Slurred, Quiet Volume Thought Content: Paranoid Thought Process: Lethality: Paranoid Ideation - Cognitive Function Orientation: A&O x 4 Level of Consciousness: Drowsy Cognition: WNL Estimated Intelligence: Normal Judgment Within Normal Limits: No Ability to Make Reasonable Decisions: Serverely Impaired - Medication Compliance Cooperative with Inpatient Medication Regimen: Yes - Group Participation Participates in Group Activities: Partial Assessment - Assessment Merits Inpatient Hospitalization: For Immediate Safety, For Stabilization Inpatient DSM-V Dx: F31.2 Clinical Impression: 28yo wf who returns to ED within one week of discharge from [facility]. She has a history of bipolar d/o and is presented with bizarre presentation. She has a history of opiate use, in remission with buprenorphine. Patient is grossly disorganized with poor impulse control. She is medication adherent while trialing mood stabilizer and antipsychotic. She merits hospitalization for immediate safety and continued stabilization. Plan - Plan Treatment Plan: Name: KAL PRICE Birthdate: 1990 [id number] continue acute intensive psychiatric treatment. continue q15min obs and hold staff pass. depakote level of 61, increased dose to 750mg in am and 1000mg qhs. change clonazepam to prn, decrease hydroxyzine prn dose to 50mg, decrease buprenorphine to 4mg BID. consider referral to [facility] if no improvement Continued Medication Management: Start Medication Medications: Current Medications Acetaminophen (Tylenol Tab*) 650 mg PO Q4H PRN PRN Reason: for pain; or Temp >101 F Last Admin: 07/18/18 21:58 Dose: 650 mg Al Hydrox/Mg Hydrox/Simethicone (Maalox Plus*) 30 ml PO Q4H PRN PRN Reason: INDIGESTION Benzocaine (Orajel 10%*) 1 applic TOPICAL QID PRN PRN Reason: .TOOTHACHE Last Admin: 07/16/18 11:55 Dose: 1 applic Buprenorphine HCl (Subutex Tab*) 4 mg PO 0800,1600 [facility] Clonazepam (Klonopin Tab(*)) 0.5 mg PO BID PRN PRN Reason: anxiety/agitation Divalproex Sodium (Depakote Dr Tab(*)) 1,000 mg PO BEDTIME [facility] Last Admin: 07/18/18 20:32 Dose: 1,000 mg Divalproex Sodium (Depakote Dr Tab(*)) 750 mg PO DAILY [facility] Last Admin: 07/19/18 09:25 Dose: 750 mg Gabapentin (Neurontin Cap(*)) 300 mg PO TID PRN PRN Reason: pain or anxiety Last Admin: 07/18/18 17:47 Dose: 300 mg Haloperidol (Haldol Tab*) 5 mg PO Q6H PRN PRN Reason: AGITATION Last Admin: 07/16/18 02:10 Dose: 5 mg Hydroxyzine HCl (Atarax Tab*) 50 mg PO Q6H PRN PRN Reason: ANXIETY Ibuprofen (Motrin Tab*) 600 mg PO Q6H PRN PRN Reason: PAIN Last Admin: 07/18/18 20:32 Dose: 600 mg Lidocaine (Lidoderm 5% Patch*) 1 patch TRANSDERM DAILY [facility] Last Admin: 07/19/18 09:26 Dose: 1 patch Multi-Ingredient Mouthwash/Gargle (Magic Mouth Was-Rafael/Maal/Lido*) 5 ml SWISH SPIT QID PRN PRN Reason: mouth pain Last Admin: 07/18/18 15:00 Dose: 5 ml Multivitamins (Theragran Tab*) 1 tab PO DAILY [facility] Last Admin: 07/19/18 09:26 Dose: 1 tab Nicotine (Nicotine Inhaler*) 10 mg INH Q2H PRN PRN Reason: CRAVING Last Admin: 07/19/18 09:26 Dose: 10 mg Nicotine (Nicotine Patch 21 Mg/24 Hr*) 1 patch TRANSDERM DAILY@0800 [facility] Last Admin: 07/19/18 09:26 Dose: 1 patch Nicotine Polacrilex (Nicotine Gum*) 2 mg PO Q2H PRN PRN Reason: CRAVING Last Admin: 07/19/18 09:26 Dose: 2 mg Paliperidone (Invega Er Tab*) 9 mg PO DAILY [facility] Last Admin: 07/19/18 09:25 Dose: 9 mg Pharmacy Profile Note (Nicotine Patch Removal Note*) 1 note FOLLOW UP 2099 [facility] Last Admin: 07/18/18 21:36 Dose: 1 note Pharmacy Profile Note (Lidocaine Patch Remove*) 1 note PATCH OFF 2099 [facility] Last Admin: 07/18/18 21:36 Dose: 1 note Propranolol HCl (Inderal Tab*) 20 mg PO BID [facility] Last Admin: 07/19/18 09:26 Dose: 20 mg Throat Lozenges (Chloraseptic Caesar*) 1 caesar MT Q2HR PRN PRN Reason: SORE THROAT Last Admin: 07/12/18 07:55 Dose: 1 caesar Trimethoprim/Sulfamethoxazole (Bactrim Ds 800/160 Tab*) 1 tab PO BID [facility] Stop: 07/24/18 10:59 Last Admin: 07/19/18 09:26 Dose: 1 tab - Discharge Plan Discharge Plan: Inpatient Hospitalization
[2018-07-19] MEDS: Ibuprofen TAB* 600 MG PO PRN (16:42)
[2018-07-19] MEDS: Magic Mouth Was-BEN/MAAL/LIDO SWISH SPIT PRN (16:43)
[2018-07-19] MEDS: hydrOXYzine HCL TAB* 50 MG PO PRN (16:44)
[2018-07-19] MEDS: Gabapentin CAP(*) 300 MG PO PRN ×2 (20:26→22:50)
[2018-07-19] MEDS: Divalproex DR TAB(*) 500 MG PO SCH (20:26)
[2018-07-19] MEDS: clonazePAM TAB(*) 0.5 MG PO PRN (20:29)
[2018-07-19] MEDS: Nicotine Patch Removal NOTE FOLLOW UP SCH (21:52)
[2018-07-19] MEDS: Lidocaine Patch REMOVE* 1 NOTE MISC PATCH OFF SCH (21:52)
[2018-07-20] MEDS: Buprenorphine TAB* 8 MG PO SCH ×2 (08:40→15:52)
[2018-07-20] MEDS: Divalproex DR TAB(*) 250 MG PO SCH (08:41)
[2018-07-20] MEDS: Sulfamethox/Trimethoprim DS 800/160* TAB PO SCH ×2 (08:42→20:40)
[2018-07-20] MEDS: Vitamin THERAPEUTIC TAB PO SCH (08:42)
[2018-07-20] MEDS: Propranolol TAB* 20 MG PO SCH ×2 (08:42→20:42)
[2018-07-20] MEDS: Paliperidone ER TAB* 9 MG TAB.ER PO SCH (08:43)
[2018-07-20] MEDS: hydrOXYzine HCL TAB* 50 MG PO PRN ×2 (08:45→20:46)
[2018-07-20] MEDS: Acetaminophen TAB* 325 MG PO PRN (08:45)
[2018-07-20] MEDS: Nicotine GUM* 2 MG PO PRN ×4 (08:49→23:20)
[2018-07-20] MEDS: Nicotine Inhaler* 10 MG AMP INH PRN ×3 (08:49→20:47)
[2018-07-20] MEDS: Lidocaine PATCH 5%* 1 PATCH TRANSDERM SCH (10:26)
[2018-07-20] MEDS: Nicotine PATCH 21 MG/24 HR* PATCH TRANSDERM SCH (10:27)
[2018-07-20] MEDS: Ibuprofen TAB* 600 MG PO PRN ×2 (10:53→20:46)
[2018-07-20] MEDS: Gabapentin CAP(*) 300 MG PO PRN (10:54)
[2018-07-20] MEDS: Magic Mouth Was-BEN/MAAL/LIDO SWISH SPIT PRN (10:59)
[2018-07-20] MEDS: Haloperidol TAB* 5 MG PO PRN (11:29)
[2018-07-20] MEDS: Al Hydrox/Mg Hydrox/Simet LIQ* 30 ML UDC PO PRN (13:40)
[2018-07-20] MEDS: clonazePAM TAB(*) 0.5 MG PO PRN (13:40)
[2018-07-20] MEDS ORDERED: Fluconazole 150 MG TAB PO ONE (14:00)
[2018-07-20] MEDS: Gabapentin CAP(*) 300 MG PO SCH ×2 (14:45→21:35)
[2018-07-20] MEDS ORDERED: Paliperidone ER TAB* 3 MG TAB.ER PO ONE (16:00)
[2018-07-20] MEDS: Divalproex DR TAB(*) 500 MG PO SCH (20:41)
[2018-07-20] MEDS: Nicotine Patch Removal NOTE FOLLOW UP SCH (21:36)
[2018-07-20] MEDS: Lidocaine Patch REMOVE* 1 NOTE MISC PATCH OFF SCH (21:36)
[2018-07-21] MEDS: Acetaminophen TAB* 325 MG PO PRN ×2 (01:00→23:15)
[2018-07-21] MEDS: Magic Mouth Was-BEN/MAAL/LIDO SWISH SPIT PRN ×2 (01:00→22:37)
[2018-07-21] MEDS: Divalproex DR TAB(*) 250 MG PO SCH (08:03)
[2018-07-21] MEDS: Paliperidone ER TAB* 6 MG TAB.ER PO SCH (08:03)
[2018-07-21] MEDS: Gabapentin CAP(*) 300 MG PO SCH ×3 (08:04→20:16)
[2018-07-21] MEDS: Buprenorphine TAB* 8 MG PO SCH ×2 (08:04→17:51)
[2018-07-21] MEDS: Vitamin THERAPEUTIC TAB PO SCH (08:04)
[2018-07-21] MEDS: Sulfamethox/Trimethoprim DS 800/160* TAB PO SCH ×2 (08:04→20:16)
[2018-07-21] MEDS: Nicotine Inhaler* 10 MG AMP INH PRN ×3 (08:10→19:10)
[2018-07-21] MEDS: Propranolol TAB* 20 MG PO SCH ×2 (09:19→20:17)
--- NOTE | 2018-07-21 10:49 | PN ---
Subjective - Subjective Date of Service: 07/21/18 Service Type: [id number] Hosp care 25 min moderate complexity Subjective: Patient apologetic to song writer for verbal outburst, song writer attributes symptoms to pathology and validates patient's efforts. She reports feeling "better" and more organized in her thoughts. We discuss the potential consideration for [facility] for longer stabilization. She agrees this may be necessary but wants to "wait a few days and see how I do." Per staff, patient is often expressing anxiety and need for prn medications even when appearing sedated. Patient asks song writer if she can have a different room because she hears scratching from animals in the [place]. Patient's godmother, Alexandro, was present for visiting hours. She reports noticing much improvement since admission. She states that Stephanie is welcome to live with her after hospitalization, at least temporarily until a better option is available. She reports concern if patient returns to her parents home due to frequent conflict and unhealthy family dynamics. Objective - General Observations Appearance: Well Groomed Stature: WNL Posture: WNL Eye Contact: Average Behavior/Activity: WNL - Interaction Observations Attitude Towards Examiner: Cooperative Attitude Towards Parent/Guardian: Positive Interaction Attitude to Parent/Guardian Comment: godmotherAlexandro Stated Mood: Euthymic Affect: Bright Speech Pattern/Tone: Clear, Appropriate, Normal Volume Thought Process: Coherent, Goal Directed Perception: WNL Thought Content: Paranoid Thought Process: Lethality: Paranoid Ideation Hallucination Type: Auditory - hearing animals in [place] Delusion Type: Denies - Cognitive Function Orientation: A&O x 4 Level of Consciousness: Alert Cognition: WNL Estimated Intelligence: Normal Insight: WNL Judgment Within Normal Limits: No Ability to Make Reasonable Decisions: Moderately Impaired - Medication Compliance Cooperative with Inpatient Medication Regimen: Yes - Group Participation Participates in Group Activities: Yes Assessment - Assessment Merits Inpatient Hospitalization: For Immediate Safety, For Stabilization, Consolidate Improvements Inpatient DSM-V Dx: F31.2 Clinical Impression: 28yo wf who returns to ED within one week of discharge from [facility]. She has a history of bipolar d/o and is presented with bizarre presentation. She has a history of opiate use, in remission with buprenorphine. Patient is grossly disorganized with poor impulse control. She is medication adherent while trialing mood stabilizer and antipsychotic. She merits hospitalization for immediate safety and continued stabilization. Plan - Plan Treatment Plan: Name: STEPHANIE PRICE Birthdate: 1990 [id number] continue acute intensive psychiatric treatment. continue q15min obs and hold staff pass. obtain depakote level on katina of 07/21/18. paliperidone increased to 12mg daily. continue other medications, as ordered. consider referral to [facility] if no improvement Medications: Current Medications Acetaminophen (Tylenol Tab*) 650 mg PO Q4H PRN PRN Reason: for pain; or Temp >101 F Last Admin: 07/21/18 01:00 Dose: 650 mg Al Hydrox/Mg Hydrox/Simethicone (Maalox Plus*) 30 ml PO Q4H PRN PRN Reason: INDIGESTION Last Admin: 07/20/18 13:40 Dose: 30 ml Benzocaine (Orajel 10%*) 1 applic TOPICAL QID PRN PRN Reason: .TOOTHACHE Last Admin: 07/16/18 11:55 Dose: 1 applic Buprenorphine HCl (Subutex Tab*) 8 mg PO 0800,1600 [facility] Last Admin: 07/21/18 08:04 Dose: 8 mg Clonazepam (Klonopin Tab(*)) 0.5 mg PO BID PRN PRN Reason: anxiety/agitation Last Admin: 07/20/18 13:40 Dose: 0.5 mg Divalproex Sodium (Depakote Dr Tab(*)) 1,000 mg PO BEDTIME [facility] Last Admin: 07/20/18 20:41 Dose: 1,000 mg Divalproex Sodium (Depakote Dr Tab(*)) 750 mg PO DAILY [facility] Last Admin: 07/21/18 08:03 Dose: 750 mg Gabapentin (Neurontin Cap(*)) 300 mg PO TID [facility] Last Admin: 07/21/18 08:04 Dose: 300 mg Haloperidol (Haldol Tab*) 5 mg PO Q6H PRN PRN Reason: AGITATION Last Admin: 07/20/18 11:29 Dose: 5 mg Hydroxyzine HCl (Atarax Tab*) 50 mg PO Q6H PRN PRN Reason: ANXIETY Last Admin: 07/20/18 20:46 Dose: 50 mg Ibuprofen (Motrin Tab*) 600 mg PO Q6H PRN PRN Reason: PAIN Last Admin: 07/20/18 20:46 Dose: 600 mg Lidocaine (Lidoderm 5% Patch*) 1 patch TRANSDERM DAILY [facility] Last Admin: 07/20/18 10:26 Dose: 1 patch Multi-Ingredient Liniment/Rub (Rafael Reddy*) 1 applic TOPICAL TID PRN PRN Reason: PAIN Multi-Ingredient Mouthwash/Gargle (Magic Mouth Was-Rafael/Maal/Lido*) 5 ml SWISH SPIT QID PRN PRN Reason: mouth pain Last Admin: 07/21/18 01:00 Dose: 5 ml Multivitamins (Theragran Tab*) 1 tab PO DAILY [facility] Last Admin: 07/21/18 08:04 Dose: 1 tab Nicotine (Nicotine Inhaler*) 10 mg INH Q2H PRN PRN Reason: CRAVING Last Admin: 07/21/18 08:10 Dose: 10 mg Nicotine (Nicotine Patch 21 Mg/24 Hr*) 1 patch TRANSDERM DAILY@0800 [facility] Last Admin: 07/20/18 10:27 Dose: 1 patch Nicotine Polacrilex (Nicotine Gum*) 2 mg PO Q2H PRN PRN Reason: CRAVING Last Admin: 07/20/18 23:20 Dose: 2 mg Paliperidone (Invega Er Tab*) 12 mg PO DAILY [facility] Last Admin: 07/21/18 08:03 Dose: 12 mg Pharmacy Profile Note (Nicotine Patch Removal Note*) 1 note FOLLOW UP 2099 [facility] Last Admin: 07/20/18 21:36 Dose: 1 note Pharmacy Profile Note (Lidocaine Patch Remove*) 1 note PATCH OFF 2099 [facility] Last Admin: 07/20/18 21:36 Dose: 1 note Propranolol HCl (Inderal Tab*) 20 mg PO BID [facility] Last Admin: 07/21/18 09:19 Dose: Not Given Throat Lozenges (Chloraseptic Caesar*) 1 caesar MT Q2HR PRN PRN Reason: SORE THROAT Last Admin: 07/12/18 07:55 Dose: 1 caesar Trimethoprim/Sulfamethoxazole (Bactrim Ds 800/160 Tab*) 1 tab PO BID [facility] Stop: 07/24/18 10:59 Last Admin: 07/21/18 08:04 Dose: 1 tab - Discharge Plan Discharge Plan: Inpatient Hospitalization
[2018-07-21] MEDS: Nicotine GUM* 2 MG PO PRN ×3 (12:58→21:55)
[2018-07-21] MEDS: Nicotine PATCH 21 MG/24 HR* PATCH TRANSDERM SCH (12:59)
[2018-07-21] MEDS: Lidocaine PATCH 5%* 1 PATCH TRANSDERM SCH (13:01)
[2018-07-21] MEDS: Ibuprofen TAB* 600 MG PO PRN (13:34)
[2018-07-21] MEDS: hydrOXYzine HCL TAB* 50 MG PO PRN (19:13)
[2018-07-21] MEDS: clonazePAM TAB(*) 0.5 MG PO PRN (20:15)
[2018-07-21] MEDS: Nicotine Patch Removal NOTE FOLLOW UP SCH (20:17)
[2018-07-21] MEDS: Divalproex DR TAB(*) 500 MG PO SCH (21:52)
[2018-07-21] MEDS: Haloperidol TAB* 5 MG PO PRN (21:53)
[2018-07-21] MEDS: Lidocaine Patch REMOVE* 1 NOTE MISC PATCH OFF SCH (22:06)
[2018-07-22] MEDS: Divalproex DR TAB(*) 250 MG PO SCH (10:31)
[2018-07-22] MEDS: Propranolol TAB* 20 MG PO SCH ×2 (10:32→20:06)
[2018-07-22] MEDS: Sulfamethox/Trimethoprim DS 800/160* TAB PO SCH ×2 (10:32→20:05)
[2018-07-22] MEDS: Gabapentin CAP(*) 300 MG PO SCH ×3 (10:32→20:05)
[2018-07-22] MEDS: Paliperidone ER TAB* 6 MG TAB.ER PO SCH (10:32)
[2018-07-22] MEDS: Buprenorphine TAB* 8 MG PO SCH ×2 (10:32→17:31)
[2018-07-22] MEDS: Nicotine Inhaler* 10 MG AMP INH PRN ×3 (10:33→15:41)
[2018-07-22] MEDS: Lidocaine PATCH 5%* 1 PATCH TRANSDERM SCH (10:36)
[2018-07-22] MEDS: Nicotine GUM* 2 MG PO PRN ×3 (10:36→19:10)
[2018-07-22] MEDS: Nicotine PATCH 21 MG/24 HR* PATCH TRANSDERM SCH (10:36)
[2018-07-22] MEDS: Vitamin THERAPEUTIC TAB PO SCH (10:49)
[2018-07-22] MEDS: Ibuprofen TAB* 600 MG PO PRN (11:36)
[2018-07-22] MEDS: hydrOXYzine HCL TAB* 50 MG PO PRN ×2 (11:36→20:05)
[2018-07-22] MEDS ORDERED: Mouth Piece, Nicotine* 1 EACH CARTRIDGE ONE (13:57)
[2018-07-22] MEDS: Benzocaine/Menthol LOZ* 1 LOZENGE MT PRN (14:04)
[2018-07-22] MEDS: clonazePAM TAB(*) 0.5 MG PO PRN ×2 (15:38→20:35)
[2018-07-22] MEDS: Magic Mouth Was-BEN/MAAL/LIDO SWISH SPIT PRN (19:10)
[2018-07-22] MEDS: Divalproex DR TAB(*) 500 MG PO SCH (20:05)
[2018-07-22] MEDS: Nicotine Patch Removal NOTE FOLLOW UP SCH (20:06)
[2018-07-22] MEDS: Lidocaine Patch REMOVE* 1 NOTE MISC PATCH OFF SCH (22:17)
[2018-07-23] MEDS: Magic Mouth Was-BEN/MAAL/LIDO SWISH SPIT PRN ×4 (00:48→22:20)
[2018-07-23] MEDS: Analgesic BALM* 114 GM TOPICAL PRN ×2 (00:48→12:49)
[2018-07-23] MEDS: Buprenorphine TAB* 8 MG PO SCH ×2 (10:16→16:58)
[2018-07-23] MEDS: Lidocaine PATCH 5%* 1 PATCH TRANSDERM SCH (10:17)
[2018-07-23] MEDS: Nicotine PATCH 21 MG/24 HR* PATCH TRANSDERM SCH (10:17)
[2018-07-23] MEDS: Vitamin THERAPEUTIC TAB PO SCH (10:17)
[2018-07-23] MEDS: Divalproex DR TAB(*) 250 MG PO SCH (10:17)
[2018-07-23] MEDS: Gabapentin CAP(*) 300 MG PO SCH ×3 (10:17→20:37)
[2018-07-23] MEDS: Paliperidone ER TAB* 6 MG TAB.ER PO SCH (10:17)
[2018-07-23] MEDS: Sulfamethox/Trimethoprim DS 800/160* TAB PO SCH ×2 (10:17→20:38)
[2018-07-23] MEDS: Propranolol TAB* 20 MG PO SCH ×2 (10:17→22:21)
[2018-07-23] MEDS: hydrOXYzine HCL TAB* 50 MG PO PRN (12:49)
[2018-07-23] MEDS ORDERED: Mouth Piece, Nicotine* 1 EACH CARTRIDGE ONE (12:50)
[2018-07-23] MEDS: Nicotine Inhaler* 10 MG AMP INH PRN ×3 (12:50→18:39)
[2018-07-23] MEDS: Nicotine GUM* 2 MG PO PRN ×4 (13:04→20:43)
[2018-07-23] MEDS: Ibuprofen TAB* 600 MG PO PRN ×2 (15:13→22:20)
[2018-07-23] MEDS: Haloperidol TAB* 5 MG PO PRN (17:36)
[2018-07-23] MEDS: Divalproex DR TAB(*) 500 MG PO SCH (20:37)
[2018-07-23] MEDS: Nicotine Patch Removal NOTE FOLLOW UP SCH (20:41)
[2018-07-23] MEDS: Benzocaine (DENTAL) 10%* TOP.GEL TOPICAL PRN (22:21)
[2018-07-23] MEDS: Lidocaine Patch REMOVE* 1 NOTE MISC PATCH OFF SCH (22:21)
[2018-07-24] MEDS: Magic Mouth Was-BEN/MAAL/LIDO SWISH SPIT PRN ×3 (04:20→20:36)
[2018-07-24] MEDS: hydrOXYzine HCL TAB* 50 MG PO PRN ×2 (06:54→19:04)
[2018-07-24] MEDS: Propranolol TAB* 20 MG PO SCH ×2 (08:22→20:18)
[2018-07-24] MEDS: Vitamin THERAPEUTIC TAB PO SCH (08:33)
[2018-07-24] MEDS: Divalproex DR TAB(*) 250 MG PO SCH (08:34)
[2018-07-24] MEDS: Gabapentin CAP(*) 300 MG PO SCH ×3 (08:34→20:17)
[2018-07-24] MEDS: Buprenorphine TAB* 8 MG PO SCH ×2 (08:34→17:29)
[2018-07-24] MEDS: Sulfamethox/Trimethoprim DS 800/160* TAB PO SCH (08:35)
[2018-07-24] MEDS: Nicotine PATCH 21 MG/24 HR* PATCH TRANSDERM SCH (08:36)
[2018-07-24] MEDS: Lidocaine PATCH 5%* 1 PATCH TRANSDERM SCH (08:38)
[2018-07-24] MEDS: Nicotine Inhaler* 10 MG AMP INH PRN ×2 (09:11→20:22)
[2018-07-24] MEDS: Nicotine GUM* 2 MG PO PRN ×3 (09:11→20:23)
[2018-07-24] MEDS: Paliperidone ER TAB* 6 MG TAB.ER PO SCH (10:46)
[2018-07-24] MEDS: Paliperidone ER TAB* 3 MG TAB.ER PO SCH (10:46)
[2018-07-24] MEDS: Paliperidone ER TAB* 9 MG TAB.ER PO SCH (10:46)
[2018-07-24] MEDS: clonazePAM TAB(*) 0.5 MG PO PRN (10:49)
[2018-07-24] MEDS ORDERED: Benztropine TAB* 1 MG PO ONE (11:42)
[2018-07-24] MEDS: Analgesic BALM* 114 GM TOPICAL PRN (12:42)
--- NOTE | 2018-07-24 13:50 | PN ---
Subjective - Subjective Date of Service: 07/24/18 Service Type: 31955 Hosp care 15 min low complexity Subjective: Patient is euthymic and coherent during conversation. She reports improved mood and is making efforts to quell periods of anxiety with nonpharmalogic coping skills. She reports bilat knee pain and lower back pain. She requests clonazepam to be discontinued due to fear of dependence. Objective - General Observations Appearance: Well Groomed Stature: WNL Posture: Atypical - restlessness Eye Contact: Average Behavior/Activity: WNL - Interaction Observations Attitude Towards Examiner: Cooperative Stated Mood: Euthymic Affect: Full Speech Pattern/Tone: Clear, Appropriate, Normal Volume Thought Process: Coherent, Circumstantial Perception: WNL Thought Content: WNL Hallucination Type: Denies Delusion Type: Denies - Cognitive Function Orientation: A&O x 4 Level of Consciousness: Alert Cognition: WNL Estimated Intelligence: Normal Insight: WNL Judgment Within Normal Limits: No Ability to Make Reasonable Decisions: Moderately Impaired - Medication Compliance Cooperative with Inpatient Medication Regimen: Yes - Group Participation Participates in Group Activities: Partial Assessment - Assessment Merits Inpatient Hospitalization: For Immediate Safety, For Stabilization, Consolidate Improvements, For Discharge Planning Inpatient DSM-V Dx: F31.2 Clinical Impression: 28yo wf who returns to ED within one week of discharge from [facility]. She has a history of bipolar d/o and is presented with bizarre presentation. She has a history of opiate use, in remission with buprenorphine. Patient is grossly disorganized with poor impulse control. She is medication adherent while trialing mood stabilizer and antipsychotic. She merits hospitalization for immediate safety and continued stabilization. Plan - Plan Treatment Plan: Name: KAL PRICE Birthdate: 1990 [id number] continue acute intensive psychiatric treatment. may decrease to q30min obs and allow staff pass and computer use [facility] level on 07/21 of 78.0 add benztropine 1mg BID. discharge planning to include family and outpatient providers Continued Medication Management: Start Medication Medications: Current Medications Acetaminophen (Tylenol Tab*) 650 mg PO Q4H PRN PRN Reason: for pain; or Temp >101 F Last Admin: 07/21/18 23:15 Dose: 650 mg Al Hydrox/Mg Hydrox/Simethicone (Maalox Plus*) 30 ml PO Q4H PRN PRN Reason: INDIGESTION Last Admin: 07/20/18 13:40 Dose: 30 ml Benzocaine (Orajel 10%*) 1 applic TOPICAL QID PRN PRN Reason: .TOOTHACHE Last Admin: 07/23/18 22:21 Dose: 1 applic Benztropine Mesylate (Cogentin Tab*) 1 mg PO BID [facility] Buprenorphine HCl (Subutex Tab*) 8 mg PO 0800,1600 [facility] Last Admin: 07/24/18 08:34 Dose: 8 mg Clonazepam (Klonopin Tab(*)) 0.5 mg PO BID PRN PRN Reason: anxiety/agitation Last Admin: 07/24/18 10:49 Dose: 0.5 mg Divalproex Sodium (Depakote Dr Tab(*)) 1,000 mg PO BEDTIME [facility] Last Admin: 07/23/18 20:37 Dose: 1,000 mg Divalproex Sodium (Depakote Dr Tab(*)) 750 mg PO DAILY [facility] Last Admin: 07/24/18 08:34 Dose: 750 mg Gabapentin (Neurontin Cap(*)) 300 mg PO TID [facility] Last Admin: 07/24/18 08:34 Dose: 300 mg Haloperidol (Haldol Tab*) 5 mg PO Q6H PRN PRN Reason: AGITATION Last Admin: 07/23/18 17:36 Dose: 5 mg Hydroxyzine HCl (Atarax Tab*) 50 mg PO Q6H PRN PRN Reason: ANXIETY Last Admin: 07/24/18 06:54 Dose: 50 mg Ibuprofen (Motrin Tab*) 600 mg PO Q6H PRN PRN Reason: PAIN Last Admin: 07/23/18 22:20 Dose: 600 mg Lidocaine (Lidoderm 5% Patch*) 1 patch TRANSDERM DAILY [facility] Last Admin: 07/24/18 08:38 Dose: 1 patch Multi-Ingredient Liniment/Rub (Rafael Reddy*) 1 applic TOPICAL TID PRN PRN Reason: PAIN Last Admin: 07/24/18 12:42 Dose: 1 applic Multi-Ingredient Mouthwash/Gargle (Magic Mouth Was-Rafael/Maal/Lido*) 5 ml SWISH SPIT QID PRN PRN Reason: mouth pain Last Admin: 07/24/18 04:20 Dose: 5 ml Multivitamins (Theragran Tab*) 1 tab PO DAILY [facility] Last Admin: 07/24/18 08:33 Dose: 1 tab Nicotine (Nicotine Inhaler*) 10 mg INH Q2H PRN PRN Reason: CRAVING Last Admin: 07/24/18 09:11 Dose: 10 mg Nicotine (Nicotine Patch 21 Mg/24 Hr*) 1 patch TRANSDERM DAILY@0800 [facility] Last Admin: 07/24/18 08:36 Dose: 1 patch Nicotine Polacrilex (Nicotine Gum*) 2 mg PO Q2H PRN PRN Reason: CRAVING Last Admin: 07/24/18 11:53 Dose: 2 mg Paliperidone (Invega Er Tab*) 3 mg PO DAILY [facility] Last Admin: 07/24/18 10:46 Dose: 3 mg Paliperidone (Invega Er Tab*) 9 mg PO DAILY [facility] Last Admin: 07/24/18 10:46 Dose: 9 mg Pharmacy Profile Note (Nicotine Patch Removal Note*) 1 note FOLLOW UP 2099 [facility] Last Admin: 07/23/18 20:41 Dose: 1 note Pharmacy Profile Note (Lidocaine Patch Remove*) 1 note PATCH OFF 2099 [facility] Last Admin: 07/23/18 22:21 Dose: 1 note Propranolol HCl (Inderal Tab*) 20 mg PO BID [facility] Last Admin: 07/24/18 08:22 Dose: Not Given Throat Lozenges (Chloraseptic Caesar*) 1 caesar MT Q2HR PRN PRN Reason: SORE THROAT Last Admin: 07/22/18 14:04 Dose: 1 caesar - Discharge Plan Discharge Plan: Inpatient Hospitalization
[2018-07-24] MEDS: Ibuprofen TAB* 600 MG PO PRN (19:03)
[2018-07-24] MEDS: Divalproex DR TAB(*) 500 MG PO SCH (20:16)
[2018-07-24] MEDS: Benztropine TAB* 1 MG PO SCH (20:16)
[2018-07-24] MEDS: Nicotine Patch Removal NOTE FOLLOW UP SCH (20:25)
[2018-07-24] MEDS: Lidocaine Patch REMOVE* 1 NOTE MISC PATCH OFF SCH (20:25)
[2018-07-24] MEDS: Acetaminophen TAB* 325 MG PO PRN (23:01)
[2018-07-24] MEDS: Haloperidol TAB* 5 MG PO PRN (23:01)
[2018-07-25] MEDS: hydrOXYzine HCL TAB* 50 MG PO PRN ×3 (04:25→18:12)
[2018-07-25] MEDS: Acetaminophen TAB* 325 MG PO PRN ×2 (05:00→15:22)
[2018-07-25] MEDS: Ibuprofen TAB* 600 MG PO PRN ×2 (05:00→15:04)
[2018-07-25] MEDS: Propranolol TAB* 20 MG PO SCH ×2 (07:36→20:22)
[2018-07-25] MEDS: Paliperidone ER TAB* 3 MG TAB.ER PO SCH (07:36)
[2018-07-25] MEDS: Vitamin THERAPEUTIC TAB PO SCH (07:36)
[2018-07-25] MEDS: Divalproex DR TAB(*) 250 MG PO SCH (07:37)
[2018-07-25] MEDS: Buprenorphine TAB* 8 MG PO SCH ×2 (07:37→15:23)
[2018-07-25] MEDS: Benztropine TAB* 1 MG PO SCH ×2 (07:37→20:21)
[2018-07-25] MEDS: Gabapentin CAP(*) 300 MG PO SCH ×3 (07:37→20:21)
[2018-07-25] MEDS: Paliperidone ER TAB* 9 MG TAB.ER PO SCH (07:38)
[2018-07-25] MEDS: Nicotine PATCH 21 MG/24 HR* PATCH TRANSDERM SCH (07:43)
[2018-07-25] MEDS: Lidocaine PATCH 5%* 1 PATCH TRANSDERM SCH (07:44)
[2018-07-25] MEDS: Magic Mouth Was-BEN/MAAL/LIDO SWISH SPIT PRN (10:50)
--- NOTE | 2018-07-25 11:20 | PN ---
BSU: Group Therapy Note - Service Type Service Type: [id number] Group Psychotherapy - Cognitive Behavioral Group Therapy ( CBT):Patient was attentive and participatory in CBT programming this morning, and remained in good behavioral control. Patient expressed positive insights regarding relevant treatment interventions and goals.
[2018-07-25] MEDS: Nicotine GUM* 2 MG PO PRN ×4 (11:39→22:00)
[2018-07-25] MEDS: Nicotine Inhaler* 10 MG AMP INH PRN ×3 (12:31→17:23)
[2018-07-25] MEDS: Haloperidol TAB* 5 MG PO PRN ×2 (16:00→21:31)
[2018-07-25] MEDS: Al Hydrox/Mg Hydrox/Simet LIQ* 30 ML UDC PO PRN (17:24)
[2018-07-25] MEDS: Benzocaine/Menthol LOZ* 1 LOZENGE MT PRN (17:24)
[2018-07-25] MEDS: Benzocaine (DENTAL) 10%* TOP.GEL TOPICAL PRN ×2 (19:04→21:59)
[2018-07-25] MEDS: Divalproex DR TAB(*) 500 MG PO SCH (20:21)
[2018-07-25] MEDS: Nicotine Patch Removal NOTE FOLLOW UP SCH (20:25)
[2018-07-25] MEDS: Lidocaine Patch REMOVE* 1 NOTE MISC PATCH OFF SCH (20:25)
[2018-07-26] MEDS: Ibuprofen TAB* 600 MG PO PRN ×3 (00:40→20:37)
[2018-07-26] MEDS: Acetaminophen TAB* 325 MG PO PRN ×3 (00:40→20:38)
[2018-07-26] MEDS: Analgesic BALM* 114 GM TOPICAL PRN ×4 (01:10→23:32)
[2018-07-26] MEDS: hydrOXYzine HCL TAB* 50 MG PO PRN ×3 (05:15→19:09)
[2018-07-26] MEDS: Magic Mouth Was-BEN/MAAL/LIDO SWISH SPIT PRN ×3 (05:15→19:09)
[2018-07-26] MEDS: Paliperidone ER TAB* 9 MG TAB.ER PO SCH (07:10)
[2018-07-26] MEDS: Vitamin THERAPEUTIC TAB PO SCH (07:10)
[2018-07-26] MEDS: Nicotine GUM* 2 MG PO PRN ×3 (07:10→19:48)
[2018-07-26] MEDS: Nicotine PATCH 21 MG/24 HR* PATCH TRANSDERM SCH (07:10)
[2018-07-26] MEDS: Lidocaine PATCH 5%* 1 PATCH TRANSDERM SCH (07:10)
[2018-07-26] MEDS: Gabapentin CAP(*) 300 MG PO SCH ×3 (07:10→20:35)
[2018-07-26] MEDS: Paliperidone ER TAB* 3 MG TAB.ER PO SCH (07:10)
[2018-07-26] MEDS: Benztropine TAB* 1 MG PO SCH ×2 (07:10→20:31)
[2018-07-26] MEDS: Propranolol TAB* 20 MG PO SCH ×2 (07:10→20:36)
[2018-07-26] MEDS: Buprenorphine TAB* 8 MG PO SCH ×3 (07:10→19:08)
[2018-07-26] MEDS: Divalproex DR TAB(*) 250 MG PO SCH (07:10)
[2018-07-26] MEDS: Benzocaine (DENTAL) 10%* TOP.GEL TOPICAL PRN ×2 (11:55→22:18)
[2018-07-26] MEDS: Haloperidol TAB* 5 MG PO PRN ×2 (12:47→22:55)
[2018-07-26] MEDS: Nicotine Inhaler* 10 MG AMP INH PRN ×2 (12:49→19:47)
[2018-07-26] MEDS: Benzocaine/Menthol LOZ* 1 LOZENGE MT PRN ×2 (13:51→20:39)
[2018-07-26] MEDS ORDERED: traZODone TAB* 50 MG TAB PO PRN (15:38)
[2018-07-26] MEDS: Divalproex DR TAB(*) 500 MG PO SCH (20:31)
[2018-07-26] MEDS: Lidocaine Patch REMOVE* 1 NOTE MISC PATCH OFF SCH (21:28)
[2018-07-26] MEDS: Nicotine Patch Removal NOTE FOLLOW UP SCH (21:28)
[2018-07-27] MEDS: hydrOXYzine HCL TAB* 50 MG PO PRN ×2 (01:36→10:45)
[2018-07-27] MEDS: Acetaminophen TAB* 325 MG PO PRN ×2 (01:36→09:24)
[2018-07-27] MEDS: Ibuprofen TAB* 600 MG PO PRN (01:36)
[2018-07-27] MEDS: Al Hydrox/Mg Hydrox/Simet LIQ* 30 ML UDC PO PRN (01:54)
[2018-07-27] MEDS: Magic Mouth Was-BEN/MAAL/LIDO SWISH SPIT PRN ×2 (01:54→09:24)
[2018-07-27] MEDS ORDERED: Mouth Piece, Nicotine* 1 EACH CARTRIDGE ONE (07:15)
[2018-07-27] MEDS: Buprenorphine TAB* 8 MG PO SCH (07:16)
[2018-07-27] MEDS: Nicotine PATCH 21 MG/24 HR* PATCH TRANSDERM SCH (07:16)
[2018-07-27] MEDS: Nicotine Inhaler* 10 MG AMP INH PRN ×2 (07:17→10:56)
[2018-07-27] MEDS: Divalproex DR TAB(*) 250 MG PO SCH (08:09)
[2018-07-27] MEDS: Benztropine TAB* 1 MG PO SCH (08:09)
[2018-07-27] MEDS: Gabapentin CAP(*) 300 MG PO SCH (08:09)
[2018-07-27] MEDS: Vitamin THERAPEUTIC TAB PO SCH (08:09)
[2018-07-27] MEDS: Lidocaine PATCH 5%* 1 PATCH TRANSDERM SCH (08:10)
[2018-07-27] MEDS: Propranolol TAB* 20 MG PO SCH (08:10)
[2018-07-27] MEDS: Paliperidone ER TAB* 9 MG TAB.ER PO SCH (08:10)
[2018-07-27 08:22] VITALS: BP 104/85
[2018-07-27] MEDS: Nicotine GUM* 2 MG PO PRN ×2 (08:29→10:43)
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
== END 2018-07-27 14:04 | disposition home or self-care (01) | DRG 753 ==
LOC: ED 12:00 → BSU 16:16
PROVIDERS: ADMIT Psychiatry & Neurology Psychiatry; ATTEND Psychiatry & Neurology Psychiatry
PROC: GZHZZZZ Group Psychotherapy (ICD-10-PCS; principal; 2018-07-11)
DX: F31.2 Bipolar disorder, current episode manic severe with psychotic features (principal); T74.21XA Adult sexual abuse, confirmed, initial encounter; F43.10 Post-traumatic stress disorder, unspecified; F11.90 Opioid use, unspecified, uncomplicated; K58.9 Irritable bowel syndrome, unspecified; B19.20 Unspecified viral hepatitis C without hepatic coma; F17.210 Nicotine dependence, cigarettes, uncomplicated; F41.0 Panic disorder [episodic paroxysmal anxiety]; R40.2412 Glasgow coma scale score 13-15, at arrival to emergency department; R74.8 Abnormal levels of other serum enzymes; G25.71 Drug induced akathisia; Z56.0 Unemployment, unspecified; Z88.8 Allergy status to other drugs, medicaments and biological substances; Z88.0 Allergy status to penicillin; Z88.1 Allergy status to other antibiotic agents; Z82.49 Family history of ischemic heart disease and other diseases of the circulatory system; Z83.3 Family history of diabetes mellitus; Z80.0 Family history of malignant neoplasm of digestive organs; Z78.1 Physical restraint status; T43.595A Adverse effect of other antipsychotics and neuroleptics, initial encounter; Y92.239 Unspecified place in hospital as the place of occurrence of the external cause
CPT/HCPCS: 36415; 70450; 70551; 72080; 72125; 80053; 80061; 80074; 80164; 80307; 80320; 80329; 81003; 81015; 82550; 83036; 84443; 84702; 85025; 87086; 87651; 90853; 93005; 99222; 99231; 99232; 99233; 99238; 99284; A9270-GY; G0480

== ENCOUNTER 2018-09-11 10:47 | Emergency (ER) | payer OTHER ==
--- OUTSIDE RECORDS SUMMARY | 2018-09-11 10:53 | XMS REPORT | Continuity of Care Document ---
:1990 External Reference #:[id number] Author Name Drew Goncalves M.D. Address [address] [place] [address] Care Team Providers Name Role Phone HCP given Primary Care Physician Unavailable Payers Date Identification Numbers Payment Provider Subscriber Effective: 2018 Policy Number: [id number] [facility] Stephanie Price PayID: [id number] [address] [place] [address] Expires: 2018 Policy Number: [place] Ind/Ppo/Hmo/Pos Anitra Price [id number] PayID: [id number] [address] [address] [place] [address] Advance Directives Description No Information Available Problems Active Problems Provider Date Generalized abdominal pain Cindy Lee PA Onset: 06/17/2016 Hematuria syndrome Cindy Lee PA Onset: 06/17/2016 Bipolar disorder Cindy Lee PA Onset: 06/17/2016 Abnormal feces Cindy Lee PA Onset: 06/17/2016 Opioid dependence Cindy Lee PA Onset: 06/17/2016 Diarrhea Cindy Lee PA Onset: 08/03/2016 Tobacco user Cindy Lee PA Onset: 09/09/2016 Herpes simplex Cindy Lee PA Onset: 09/28/2016 Gastroesophageal reflux disease Cindy Lee PA Onset: 03/02/2017 Schizoaffective schizophrenia Cindy Lee PA Onset: 03/15/2017 Opioid dependence in remission Cindy Lee PA Onset: 03/15/2017 Viral hepatitis C Cindy Lee PA Onset: 04/06/2017 Migraine without aura, not refractory Cindy Lee PA Onset: 04/07/2017 Backache Cindy Lee PA Onset: 04/07/2017 Anxiety state Cindy Lee PA Onset: 05/17/2017 Low back pain Cindy Lee PA Onset: 05/26/2017 Erosive esophagitis Cindy Lee PA Onset: 06/22/2017 Esophagitis Cindy Lee PA Onset: 06/23/2017 Kidney stone Cindy Lee PA Onset: 06/23/2017 Chronic hepatitis C Cindy Lee PA Onset: 08/25/2017 Opioid abuse Cindy Lee PA Onset: 08/25/2017 Nondependent opioid abuse in remission Cindy Lee PA Onset: 06/15/2018 Polysubstance abuse Cindy Lee PA Onset: 06/26/2018 Bipolar affective disorder, currently manic, Cindy Lee PA Onset: 2018 severe, with psychosis Family History Date Family Member(s) Observation Comments [...] heroin, In The Past cocaine--inpatient rehab at [facility] 01/2017, relapse 06/2017, inpatient rehab at [facility] 05/2018. Tobacco Use Start: Unknown Light tobacco [...] reports being drug free since intake at [facility]. 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 Recreational Drug Use 04/29/2018 Addicted to Crack Cocaine Recreational Drug Use 04/29/2018 Sporadically uses Amphetamines Exercise Type/Frequency Exercises regularly Sun Exposure Does not use sunscreen Seat Belt/Car Seat Seat Belt Use - Yes Currently Active Patient is currently sexually active Age 1st [place] 16 Years Old STD's No STD History Allergies, Adverse Reactions, Alerts Active Allergies Reaction Severity Comments Date Penicillins hives 12/23/2015 Augmentin hives, sob 12/23/2015 Amoxicillin hives 06/01/2016 Cats hives 06/01/2016 Suboxone vomiting, bumps in mouth 04/29/2018 Medications Active Medications SIG Qnty Indications Ordering Date Provider Melatonin 1-2 tabs at 180caps F51.3 Bruno Clement, 08/05/2018 1mg Capsules night for sleep. D.O. Lumbar Corset Brace use as directed 1units M54.9 Drew Goncalves, 2018 M.D. Lidocaine Viscous 10ml orally, 100ml K04.7 Drew Goncalves, 08/01/2018 2% swish and spit MAdrianaDAdriana Solution every 3 hours as needed for dental pain Benztropine Mesylate one po twice Unknown 07/27/2018 1mg daily Tablets Divalproex Sodium take 3 tablets Unknown 07/27/2018 250mg by mouth qam, Tablets DR pedro Gabapentin take 1 capsule Unknown 07/27/2018 300mg Capsules by mouth three times a day Propranolol HCL take 1 tablet by Unknown 07/27/2018 20mg mouth twice a Tablets day Paliperidone ER take 1 tablet by Unknown 07/27/2018 9mg mouth once daily Tablets ER 24HR Hydroxyzine HCL take 1 tablet by 60tabs Drew Goncalves, 06/30/2018 50mg mouth twice a M.D. Tablets day if needed for anxiety Acetaminophen 2-3 tabs by Unknown 06/30/2018 325mg mouth every 4 Tablets hours as needed for pain or fever; max 4 doses/24hrs Buprenorphine HCL dissolve 1 56tabs F11.11 Unknown 06/14/2018 8mg tablet under the Tablets Sub tongue twice daily Nexplanon placed 05/2014 Unknown 68mg Implant Divalproex Sodium take 2 tablets Unknown 500mg by mouth at Tablets DR bedtime History Medications Oramagic Plus swish and spit as 210ml K04.7 Imancomeryl, 08/01/2018 - 10% Suspension needed for dental Magda Russell 08/01/2018 Rec pain Buspirone HCL take 1 tablet by 60tabs F41.9 Imancomeryl, 07/03/2018 - 10mg Tablets mouth twice a day Magda Russell 07/31/2018 for anxiety Latuda 1 tablet at 5 PM 30tabs F31.2 Sacha, 07/03/2018 - 80mg Tablets to manage severe Magda Russell 07/31/2018 bipolar disorder Latuda take 1 tablet by 30tabs Unknown 06/30/2018 - 80mg Tablets mouth once daily 07/03/2018 AT 5PM Trazodone HCL take 1 tablet by 30tabs Unknown 06/30/2018 - 100mg Tablets mouth at bedtime 07/31/2018 if needed for insomnia Azithromycin 2 tabs by mouth 6tabs J01.90 Sacha, 06/15/2018 - 250mg Tablets daily x1 day then Magda Russell 06/21/2018 1 tab by mouth daily x4 days Methylprednisolone use as directed 1units J20.9 Sacha, 06/15/2018 - 4mg TBPK on package Magda Russell 06/30/2018 Buprenorphine HCL 1 tab sublingual 10tabs Unknown 06/09/2018 - 8mg Tablets twice daily 06/14/2018 Sub Buspirone HCL take 1 tablet by 90tabs Unknown 06/08/2018 - 10mg Tablets mouth three times 06/30/2018 a day for anxiety Clonidine HCL take 1 tablet by 90tabs Unknown 06/08/2018 - 0.1mg Tablets mouth three times 06/30/2018 a day if needed Paroxetine HCL take 1 tablet by 60tabs Unknown 06/08/2018 - 20mg Tablets mouth twice a day 06/30/2018 Omeprazole take 1 capsule by 30caps Unknown 06/08/2018 - 20mg Capsules DR mouth once daily 06/30/2018 Hydroxyzine Pamoate take 1 capsule by 2o Unknown 06/08/2018 - 25mg mouth four times 06/30/2018 Capsules a day if needed Trazodone HCL take 1 tablet by 10tabs Unknown 06/08/2018 - 50mg Tablets mouth at bedtime 06/30/2018 if needed for insomnia Lidocaine apply topically 15gm [place]ano, 05/12/2018 - 4% Cream to affected areas Belén CarrOAdriana 05/12/2018 no more than 3 or 4 times daily Clindamycin HCL take 1 capsule by 30caps L03.315 [facility] 05/12[facility]2018 - 300mg mouth every 8 Fidel Carr 05/22/2018 Capsules hours for 10 days Clonazepam 1/2 - 1 tab by 45tabs F41.9 Silcomeryl, 04/29/2018 - 1mg Tablets mouth up to three Magda Russell 06/09/2018 times a day as needed for anxiety Soma 1 tab three times 84tabs M54.9 Silcoff, 04/29/2018 - 350mg Tablets a day as needed Magda Russell 06/09/2018 spasms Azithromycin 2 tabs by mouth 6tabs J20.9 Silcoff, 04/29/2018 - 250mg Tablets daily x1 day then Magda Russell 05/04/2018 1 tab by mouth daily x4 days Tessalon Perles 1 cap by mouth 30caps J20.9 Silcoff, 04/29/2018 - 100mg three times a day Magda Russell 06/15/2018 Capsules as needed cough Tramadol HCL 1 tab by mouth 20tabs N10 Silcoff, 02/08/2018 - 50mg Tablets every 8 hours as Magda Russell 04/29/2018 needed for pain Buspirone HCL 1 tab by mouth 60tabs F31.9 Silcoff, 02/08/2018 - 15mg Tablets twice a day for Magda Russell 04/29/2018 anxiety Sulfamethoxazole/Trimeth 1 tablet by mouth 28tabs Unknown 02/01/2018 - oprim DS twice daily x 14 02/15/2018 800-160mg Tablets days Ondansetron 1 tab po tid as 30tabs Silcomeryl, 02/01/2018 - 4mg Tablets needed for nausea Magda Russell 06/30/2018 Dispers Omeprazole 1 capsule by 30caps Unknown 12/18/2017 - 40mg Capsules DR mouth daily 04/29/2018 Buspirone HCL 1 tab by mouth 60tabs F31.9 Sopchak, 09/22/2017 - 10mg Tablets twice a day for Bruno D.OAdriana 02/08/2018 anxiety Trazodone HCL 1 tabs by mouth 30tabs Silcoff, 08/25/2017 - 100mg Tablets every night at Magda Russell 02/07/2018 bedtime for sleep Naltrexone HCL 1 tab by mouth 30tabs Silcoff, 06/20/2017 - 50mg Tablets daily with food Magda Russell 02/07/2018 Metronidazole take 1 tablet by 14tabs Silfarzana, 05/28/2017 - 500mg Tablets mouth two times a Magda Russell 06/04/2017 day for 7 days Diflucan 1 tab by mouth 1tabs Silcomeryl, 05/28/2017 - 150mg Tablets once for yeast Magda Russell 06/04/2017 infection Lorazepam 1 tab by mouth up 120tabs F41.9 Silcomeryl, 05/17/2017 - 1mg Tablets to two times Magda Russell 08/25/2017 during the day and up to 2 tabs at night as needed for anxiety Ciprofloxacin HCL 1 tab twice a day Unknown 05/16/2017 - 500mg x 7 05/25/2017 Tablets Docusate Sodium 1 cap by mouth Unknown 05/16/2017 - 100mg twice a day as 04/29/2018 Capsules needed for constipation Polyethylene Glycol 3350 1 capful in 8 oz Unknown 05/16/2017 - of water by mouth 05/25/2017 3350NF Packet prn for constipation Diphenoxylate-Atropine 1 tab by mouth 120tabs R19.7 Sacha, 05/04/2017 - every 6 hours as Magda Russell 04/29/2018 2.5-0.025mg Tablets needed for diarrhea Medrol use as directed 1units J03.90 Silcomeryl, 05/04/2017 - 4mg TBPK on package Magda Russell 05/16/2017 Cyclobenzaprine HCL 1 tab by mouth 90tabs Silcomeryl, 04/07/2017 - 10mg three times a day Magda Russell 05/17/2017 Tablets as needed for spasms Acidophilus Extra 1 tab po bid 60caps Sacha, 03/15/2017 - Strength Magda Russell 02/07/2018 Capsules Folic Acid-Vit B6-Vit 1 tab po daily 30tabs Silfarzana, 03/15/2017 - B12 Magda Russell 09/21/2017 0.4-50-0.1mg Tablets Multi Vitamin Daily 1 tab po daily 30tabs Silcomeryl, 03/15/2017 - Tablets Magda Russell 09/21/2017 Trileptal 2 tab by mouth 120tabs Sacha, 03/14/2017 - 300mg Tablets 2x/day Magda Russell 02/07/2018 Zanaflex 1 tab po up to 90caps Unknown 03/14/2017 - 6mg Capsules tid prn 04/07/2017 Vistaril 1 tab by mouth up 90caps F31.9 Imancomeryl, 03/14/2017 - 50mg Capsules to 3x daily Magda Russell 09/22/2017 Olanzapine 2 tablet every 60tabs Sacha, 03/14/2017 - 5mg Tablets night at bedtime Magda uRssell 02/07/2018 Meloxicam take one tablet 30tabs R10.84 co, 03/02/2017 - 15mg Tablets by mouth every Magda Russell 04/29/2018 day for pain M54.5 Tizanidine HCL one tab by mouth 30caps Sacha, 03/02/2017 - 6mg three times a day Magda Russell 03/14/2017 Capsules as needed for spasms Nicotine Step 2 apply 1 patch 30units F17.210 Silcomeryl, 03/02/2017 - topically daily Magda Russell 03/14/2017 14mg/24HR Patches 24HR Omeprazole 1 by mouth every 30caps K21.9 Silcoff, 03/02/2017 - 20mg day Magda Russell 03/14/[address] Tizanidine HCL 1 tab by mouth Unknown 03/01/2017 - 4mg three times a day 03/02/2017 Capsules as needed spasms Naltrexone HCL 1 tab by mouth 30tabs Silcoff, 03/01/2017 - 50mg daily with food Magda Russell 08/24/2017 Tablets Trazodone HCL 1 tabs by mouth Unknown 03/01/2017 - 100mg every night at 05/17/2017 Tablets bedtime for sleep Ondansetron HCL 1 by mouth every Unknown 03/01/2017 - 4mg 4 hours as needed 03/14/2017 Tablets for nausea Amitriptyline HCL 1 tab by mouth at 30tabs Silcomeryl, 03/01/2017 - 50mg bedtime prn Magda Russell 02/07/2018 Tablets Mirtazapine 1 by mouth 90tabs F31.9 Bruno Clement, 03/01/2017 - 45mg nightly D.O. 02/07/2018 Tablets Oxcarbazepine 2 tabs po twice Unknown 03/01/2017 - 300mg daily 03/14/2017 Tablets Clonidine HCL 1 tab po bid 60tabs F31.9 Bruno Clement, 01/15/2017 - 0.3mg D.O. 03/01/2017 Tablets F11.20 Meloxicam 1 tab by mouth 60tabs R10.84 Drew Goncalves, 12/29/2016 - 7.5mg Tablets up to twice M.D. 03/02/2017 daily as needed for pain Chlorzoxazone 1 tab by mouth 90tabs M54.9 Drew Goncalves, 12/29/2016 - 500mg three times a M.D. 03/01/2017 Tablets day as needed spasms Orphenadrine Citrate take 1 tablet 60tabs M54.9 Cindy Lee, 12/08/2016 - ER by mouth two PA 12/29/2016 100mg Tablets ER 12HR times daily as needed for spasms Carisoprodol 1 tab po every 90tabs M54.9 Cindy Lee, 12/07/2016 - 250mg 8 hours as PA 12/08/2016 Tablets needed for muscle spasms Celecoxib 1 cap by mouth 60caps R10.84 Cindy Lee, 12/07/2016 - 100mg Capsules twice a day as PA 12/29/2016 needed for pain M54.9 Venlafaxine HCL 1 by mouth 60tabs F31.9 Cindy Lee, 12/07/2016 - 75mg twice a day PA 12/28/2016 Tablets Endocet 1 tab po every 21tabs R10.84 Cindy Lee, 11/02/2016 - 10-325mg 8 hours as PA 11/02/2016 Tablets needed for severe pain, max 3/day Meloxicam 1 tab by mouth 60tabs R10.84 Cindy Lee, 11/02/2016 - 7.5mg Tablets up to twice PA 12/07/2016 daily as needed for pain Clonidine HCL 1 tab by mouth 60tabs F31.9 Drew Goncalves, 11/02/2016 - 0.2mg twice a day M.DAdriana 01/15/2017 Tablets F11.20 Hydroxyzine Pamoate 1 tab by mouth 120caps F31.9 Cindy Lee, 2016 - 100mg up to every 6 PA 03/14/2017 Capsules hours as needed for anxiety Cyclobenzaprine HCL 1 tab by mouth 90tabs F11.20 Cindy Lee, 2016 - 10mg up to three PA 12/07/2016 Tablets times a day as needed for spasms Metaxalone 1 tab by mouth 90tabs F11.20 Cindy Lee, 10/20/2016 - 800mg Tablets three times a PA 11/02/2016 day as needed spasms Valacyclovir HCL 1 tab by mouth 14tabs A60.04 Cindy Lee, 10/20/2016 - 1gm every 12 hours PA 10/27/2016 Tablets x7 days Ondansetron HCL 1 tab by mouth 60tabs R10.84 Cindy Lee, 10/07/2016 - 4mg twice a day as PA 01/14/2017 Tablets needed for nausea Diflucan 1 tab by mouth 1tabs Cindy Lee, 09/14/2016 - 150mg Tablets once for yeast PA 10/06/2016 infection Sumatriptan Succinate 1 tab by mouth 14tabs G43.009 Sacha, 09/09/2016 - at onset of Magda Russell 04/29/2018 50mg Tablets migraine, may repeat x1 after 2 hours if needed Oxycodone HCL 1 tablets by 90tabs R10.84 Cindy Lee, 08/17/2016 - 10mg mouth two to PA 11/02/2016 Tablets three times a day as needed for severe pain Diphenoxylate-Atropine 1 tab by mouth 120tabs R19.7 Cindy Lee, 2016 - every 6 hours as PA 03/15/2017 2.5-0.025mg Tablets needed for diarrhea Clonidine HCL 1 tab by mouth 30tabs F31.9 Cindy Lee, 08/03/2016 - 0.2mg at night for PA 11/02/2016 Tablets anxiety F11.20 Hydroxyzine HCL 1 tab by mouth three 90tabs F31.9 Cindy Lee, 2016 - times a day as needed PA 11/02/2016 10mg Tablets for anxiety Oxycodone-Acetamin 1 tab up to twice 60tabs R10.84 Cindy Lee, 2016 - ophen daily as needed for PA 08/17/2016 10-325mg pain Tablets Magic Mouth Wash Diphenhydramine liquid Unknown 07/31/2016 - 5ml Maalox 60 ml 09/08/2016 Lidocaine 60 ml as needed up to four times a day Ropinirole HCL 1 tab by mouth at 30tabs G25.81 Silcomeryl, 07/29/2016 - bedtime for restless Magda Russell 02/07/2018 0.25mg Tablets legs Cefdinir 1 cap by mouth twice a 20caps J02.0 Cindy Lee, 07/29/2016 - 300mg day x10 days PA 08/08/2016 Capsules Hyoscyamine 1 tablet by mouth 60tabs Mj 07/28/2016 - Sulfate ER twice daily MD William 09/08/2016 0.375mg Tablets ER 12HR Acetaminophen-Code 1 tab po every 6 hrs Unknown 07/08/2016 - ine #3 prn pain 07/13/2016 300-30mg Tablets Cefdinir 1 cap po twice daily x Unknown 07/08/2016 - 300mg 10 days 07/28/2016 Capsules Mirtazapine 1 by mouth every night 30tabs F31.9 Silcoff, 06/24/2016 - 30mg at bedtime Magda Russell 03/01/2017 Tablets Oxycodone-Acetamin take 1 tablet up to 2 30tabs R10.84 Cindy Lee, 12/2016 - ophen times a day as needed PA 08/03/2016 5-325mg for pain Tablets Suboxone 1 by mouth every Unknown 05/20/2016 - 8-2mg morning; suboxone 06/23/2016 Film prescriber# [id number] Clonidine HCL ER 1 tab by mouth at 30tabs Cindy Lee, 05/20/2016 - bedtime PA 08/03/2016 0.1mg Tablets ER 12HR Diflucan 1 tab by mouth once 1tabs Cindy Lee, 12/30/2015 - 150mg PA 06/16/2016 Tablets Metrogel-Vaginal [address] 70gm Cindy Lee, 12/30/2015 - of vagina every night PA 06/16/2016 0.75% Gel at bedtime x5 days No Active Unknown 12/23/2015 - Medications 12/30/2015 Diphenoxylate-Atro take 2 tablets by R19.7 Unknown - pine mouth 4 times per day 03/14/2017 2.5-0.025mg as needed for diarrhea Tablets Baclofen take 1 tablet by mouth Unknown - 10mg three times a day 05/17/2017 Tablets Nystatin take 4 milliliters by Unknown - mouth four times a day 05/25/2017 [id number] as directed Suspension Medications Administered in Office Medication SIG Qnty Indications Ordering Provider Date SC/Im Injections Jeremy Godoy M.D. 07/31/2016 Injection Immunizations CPT Code Status Date Vaccine Lot # [id number] Given 06/15/2018 Hep B Immunization, Adult [id number] 71876 Given 08/13/2017 Adacel or Boostrix, TDaP 42782 Given 03/15/2017 Adacel or Boostrix, TDaP [id number] 11151 Given 05/29/2010 Flu, Split Virus 3Yrs 38082 Given 08/09/2008 Gardasil HPV vaccine 44674 Given 03/22/2008 Varicella (Chicken Pox) Immunization 28582 Given 03/22/2008 Flu, Split Virus 3Yrs 22036 Given 03/22/2008 Gardasil HPV vaccine 71599 Given 07/12/2005 Menactra Menningitis Vaccine 13537 Given 07/12/2005 Adacel or Boostrix, TDaP 11711 Given 10/24/1996 Oral Poliovirus Immunization 24933 Given 10/24/1996 MMR Virus Immunization 09754 Given 10/24/1996 Dtap Immunization (Tripedia) (Infanrix) 63883 Given 10/21/1993 Hep B Immunization, Ped/Adolescent To 11 Yrs 48019 Given 05/27/1993 Hep B Immunization, Ped/Adolescent To 11 Yrs 20245 Given 04/29/1993 Hep B Immunization, Ped/Adolescent To 11 Yrs 00287 Given 04/29/1993 DTP-Hib (Tetramune) 17156 Given 04/29/1993 Oral Poliovirus Immunization 30459 Given 04/29/1993 MMR Virus Immunization 33603 Given 1992 DTP Immunization 75759 Given 1992 3 dose Hib (PRP-Omp) 31982 Given 1992 Oral Poliovirus Immunization 91419 Given 1992 DTP Immunization 70074 Given 1992 3 dose Hib (PRP-Omp) 64400 Given 1992 Oral Poliovirus Immunization 99755 Given 1992 DTP Immunization 85409 Given 1992 3 dose Hib (PRP-Omp) Vital Signs Date Vital Result Comment 08/14/2018 10:43am BP Systolic 96 mmHg BP Diastolic 62 mmHg Weight 114.00 lb 08/05/2018 11:35am BP Systolic 98 mmHg BP Diastolic 54 mmHg 08/01/2018 3:52pm BP Systolic 102 mmHg BP Diastolic 58 mmHg Weight 108.00 lb 07/03/2018 10:32am BP Systolic 112 mmHg BP [...] Result H/L Range Note CBC Auto Diff 07/05/2018 [facility] White Blood 10.4 10^3/uL N 3.5- 10.8 [phone] Count Red Blood Count 4.08 10^6/uL N 3.70-4.87 Hemoglobin 12.0 g/dL N 12.0-16.0 Hematocrit 36 % N 33-41 Mean Corpuscular Volume 87 fL N 80-97 Mean Corpuscular Hemoglobin 30 pg N 27-31 Mean Corpuscular HGB Conc 34 g/dL N 31-36 Red Cell Distribution Width 14 % N 10.5-15 Platelet Count 259 10^3/uL N 150-450 Mean Platelet Volume 8.1 fL N 7.4-10.4 Abs Neutrophils 6.0 10^3/uL N 1.5-7.7 Abs Lymphocytes 3.3 10^3/uL N 1.0-4.8 Abs Monocytes 0.8 10^3/uL N 0-0.8 Abs Eosinophils 0.2 10^3/uL N 0-0.6 Abs Basophils 0.1 10^3/uL N 0-0.2 Abs Nucleated RBC 0 10^3/uL Granulocyte % 57.9 % Lymphocyte % 31.5 % Monocyte % 7.6 % Eosinophil % 2.4 % Basophil % 0.6 % Nucleated Red Blood Cells % 0 Comp Metabolic Panel 07/05/2018 [facility] Sodium 137 mmol/L N 135- 145 [phone] Potassium 3.9 mmol/L N 3.5-5.0 Chloride 103 mmol/L N 101-111 Co2 Carbon Dioxide 24 mmol/L N 22-32 Anion Gap 10 mmol/L N 2-11 Glucose 123 mg/dL High 70-100 Blood Urea Nitrogen 10 mg/dL N 6-24 Creatinine 0.64 mg/dL N 0.51-0.95 BUN/Creatinine Ratio 15.6 N 8-20 Calcium 9.2 mg/dL N 8.6-10.3 Total Protein 7.1 g/dL N 6.4-8.9 Albumin 4.5 g/dL N 3.2-5.2 Globulin 2.6 g/dL N 2-4 Albumin/Globulin Ratio 1.7 N 1-3 Total Bilirubin 0.40 mg/dL N 0.2-1.0 Alkaline Phosphatase 73 U/L N 34-104 Alt 88 U/L High 7-52 Ast 52 U/L High 13-39 Egfr Non- 112.2 >60 Egfr 135.7 >60 1 Laboratory test finding 07/05/2018 [facility] HCG < 0.60 mIU/ mL 2 [phone] Acetaminophen < 15 g/mL 3 Alcohol < 10 mg/dL N <10 Salicylate < 2.50 mg/dL <30 TSH (Thyroid Stim Horm) 2.10 mcIU/mL N 0.34-5.60 Hepatitis Acute 07/05/2018 [facility] Hepatitis B Nonreactive Nonreactive Panel [phone] Surface Antigen Hepatitis B Core IgM Nonreactive Nonreactive HCV Index > 11.0 Index Hepatitis C Antibody High Reactive Abnormal Nonreactive 4 Hepatitis A AB IgM Nonreactive Nonreactive Urine Drug 07/05/2018 [facility] Amphetamine Ur None Detected None Detect SCR ED & [phone] Screen Pain Clinic Barbiturates Urine Screen None Detected None Detect Benzodiazepine Urine Screen None Detected None Detect Urine Cannabinoids Screen None Detected None Detect Urine Cocaine Screen None Detected None Detect Urine Opiates Screen None Detected None Detect Urine Phencyclidine Screen None Detected None Detect 5 Urinalysis Profile 07/05/2018 [facility] Urine Color Alexsandra [phone] Urine Appearance Cloudy Urine Specific [place] 1.026 N 1.010-1.030 Urine pH 5.0 N 5-9 Urine Urobilinogen Negative Negative Urine Ketones Trace Abnormal Negative Urine Protein 1+(30 mg/dL) Abnormal Negative Urine Leukocytes 3+ Abnormal Negative Urine Blood 1+ Abnormal Negative * * Abnormal Negative 6 Urine Nitrite Negative Negative Urine Bilirubin Negative Negative Urine Glucose Negative Negative Urine White Blood Cell 3+(>20/hpf) Abnormal Absent Urine Red Blood Cell 3+(>10/hpf) Abnormal Absent Urine Bacteria Absent Absent Urine Squamous Epithelial Cell Present Abnormal Absent Urine Culture And 07/05/2018 [facility] Urine Culture SEE RESULT BELOW 7 Sensitivities [phone] Urine Culture And 07/04/2018 [facility] Urine Culture SEE RESULT BELOW 8 Sensitivities [phone] Laboratory test finding 07/04/2018 [facility] HCG < 0.60 mIU/ mL 9 [phone] [place] < 0.10 mmol/L Low 0.6-1.2 Valproic Acid (Depakene) < 13.0 g/mL Low 50-100 Acetaminophen < 15 g/mL 10 Alcohol < 10 mg/dL N <10 Salicylate < 2.50 mg/dL <30 TSH (Thyroid Stim Horm) 1.41 mcIU/mL N 0.34-5.60 Comp Metabolic Panel 07/04/2018 [facility] Sodium 137 mmol/L N 135- 145 [phone] Potassium 3.7 mmol/L N 3.5-5.0 Chloride 105 mmol/L N 101-111 Co2 Carbon Dioxide 24 mmol/L N 22-32 Anion Gap 8 mmol/L N 2-11 Glucose 84 mg/dL N 70-100 Blood Urea Nitrogen 10 mg/dL N 6-24 Creatinine 0.60 mg/dL N 0.51-0.95 BUN/Creatinine Ratio 16.7 N 8-20 Calcium 9.1 mg/dL N 8.6-10.3 Total Protein 7.1 g/dL N 6.4-8.9 Albumin 4.6 g/dL N 3.2-5.2 Globulin 2.5 g/dL N 2-4 Albumin/Globulin Ratio 1.8 N 1-3 Total Bilirubin 0.30 mg/dL N 0.2-1.0 Alkaline Phosphatase 76 U/L N 34-104 Alt 65 U/L High 7-52 Ast 40 U/L High 13-39 Egfr Non- 120.8 >60 Egfr 146.2 >60 11 Urinalysis Profile 07/04/2018 [facility] Urine Color Yellow [phone] Urine Appearance Cloudy Urine Specific [place] 1.018 N 1.010-1.030 Urine pH 5.0 N 5-9 Urine Urobilinogen Negative Negative Urine Ketones Trace Abnormal Negative Urine Protein Negative Negative Urine Leukocytes 3+ Abnormal Negative Urine Blood Negative Negative * * Abnormal Negative 12 Urine Nitrite Negative Negative Urine Bilirubin Negative Negative Urine Glucose Negative Negative Urine White Blood Cell 3+(>20/hpf) Abnormal Absent Urine Red Blood Cell 3+(>10/hpf) Abnormal Absent Urine Bacteria Absent Absent Urine Squamous Epithelial Cell Present Abnormal Absent Urine Drug 07/04/2018 [facility] Amphetamine Ur None Detected None Detect SCR ED & [phone] Screen Pain Clinic Barbiturates Urine Screen None Detected None Detect Benzodiazepine Urine Screen None Detected None Detect Urine Cannabinoids Screen None Detected None Detect Urine Cocaine Screen None Detected None Detect Urine Opiates Screen None Detected None Detect Urine Phencyclidine Screen None Detected None Detect 13 CBC Auto Diff 07/04/2018 [facility] White Blood 10.9 10^3/uL High 3.5 -10.8 [phone] Count Red Blood Count 4.13 10^6/uL N 3.70-4.87 Hemoglobin 12.1 g/dL N 12.0-16.0 Hematocrit 36 % N 33-41 Mean Corpuscular Volume 86 fL N 80-97 Mean Corpuscular Hemoglobin 29 pg N 27-31 Mean Corpuscular HGB Conc 34 g/dL N 31-36 Red Cell Distribution Width 14 % N 10.5-15 Platelet Count 224 10^3/uL N 150-450 Mean Platelet Volume 8.0 fL N 7.4-10.4 Abs Neutrophils 8.1 10^3/uL High 1.5-7.7 Abs Lymphocytes 2.0 10^3/uL N 1.0-4.8 Abs Monocytes 0.7 10^3/uL N 0-0.8 Abs Eosinophils 0.1 10^3/uL N 0-0.6 Abs Basophils 0 10^3/uL N 0-0.2 Abs Nucleated RBC 0 10^3/uL Granulocyte % 74.0 % Lymphocyte % 18.0 % Monocyte % 6.4 % Eosinophil % 1.2 % Basophil % 0.4 % Nucleated Red Blood Cells % 0.1 Urine Culture And 06/22/2018 [facility] Urine Culture SEE RESULT 14 Sensitivities [phone] BELOW Urine Drug SCR ED 06/22/2018 [facility] [facility] None [facility] [phone] Screen Detected Detect Barbiturates Urine Screen None Detected None Detect Benzodiazepine Urine Screen Presumptive Posi <SEE NOTE> Abnormal None Detect 15 Urine Cannabinoids Screen None Detected None Detect Urine Cocaine Screen None Detected None Detect Urine Opiates Screen None Detected None Detect Urine Phencyclidine Screen None Detected None Detect 16 Urinalysis Profile 06/22/2018 [facility] Urine Color Yellow [phone] Urine Appearance Cloudy Urine Specific [place] 1.005 Low 1.010-1.030 Urine pH 6.0 N [...] Urine Squamous Epithelial Cell Present Abnormal Absent Laboratory test 06/22/2018 [facility] Creatine Kinase(CK) 213 U/L N 10-223 finding [phone] Acetaminophen < 15 g/mL 17 Alcohol < 10 mg/dL N <10 Salicylate < 2.50 mg/dL <30 HCG < 0.60 mIU/mL 18 TSH (Thyroid Stim Horm) 1.13 mcIU/mL N 0.34-5.60 Comp Metabolic Panel 06/22/2018 [facility] Sodium 136 mmol/L N 135- 145 [phone] Potassium 3.9 mmol/L N 3.5-5.0 Chloride 101 [...] Egfr Non- 114.2 >60 Egfr 138.2 >60 19 CBC Auto Diff 06/22/2018 [facility] White Blood 17.3 10^3/uL High 3.5 -10.8 [phone] Count Red Blood Count 4.38 10^6/uL N [...] % Nucleated Red Blood Cells % 0.1 Urinalysis Profile 06/22/2018 [facility] Urine Color Yellow [phone] Urine Appearance Cloudy Urine Specific [place] 1.008 Low 1.010-1.030 Urine pH 6.0 N [...] Absent Urine Hyaline Casts Present Abnormal Absent Urine Drug 06/22/2018 [facility] Amphetamine Ur None Detected None Detect SCR ED & [phone] Screen Pain Clinic Barbiturates Urine Screen None Detected None Detect Benzodiazepine Urine Screen Presumptive Posi <SEE NOTE> Abnormal None Detect 20 Urine Cannabinoids Screen None Detected None Detect Urine Cocaine Screen None Detected None Detect Urine Opiates Screen None Detected None Detect Urine Phencyclidine Screen None Detected None Detect 21 Laboratory test finding 06/22/2018 [facility] HCG < 0.60 mIU/ mL 22 [phone] Acetaminophen < 15 g/mL 23 Alcohol < 10 mg/dL N <10 Salicylate < 2.50 mg/dL <30 TSH (Thyroid Stim Horm) 0.66 mcIU/mL N 0.34-5.60 Comp Metabolic Panel 06/22/2018 [facility] Sodium 131 mmol/L Low 135- 145 [phone] Potassium 4.4 mmol/L N 3.5-5.0 Chloride 99 [...] Egfr Non- 133.6 >60 Egfr 161.7 >60 24 CBC Auto Diff 06/22/2018 [facility] White Blood 23.4 10^3/uL High 3.5 -10.8 [phone] Count Red Blood Count 4.42 10^6/uL N [...] % Nucleated Red Blood Cells % 0 Laboratory test 02/08/2018 [facility] Hepatitis C Undetected Undetected 25 finding [phone] Rna Quant IU/mL Comp Metabolic 02/08/2018 [facility] Sodium 137 mmol/L N 135-145 Panel [phone] Potassium 4.5 mmol/L N 3.5-5.0 Chloride 101 [...] Egfr Non- 112.2 >60 Egfr 135.7 >60 26 Poc Urinalysis 01/21/2018 [facility] Poc Glucose, Trace Abnormal Negative [phone] Urine Poc Bilirubin, Urine 1+ Abnormal Negative Poc Ketone, Urine Negative Negative Poc Specific [place], Urine >=1.030 N 1.010-1.030 Poc Blood, Urine Negative Negative Poc pH, Urine 5.5 N 5-9 Poc Protein, Urine Trace Abnormal Negative Poc Urobilinogen, Urine 0.2 Negative Poc Nitrite, Urine Negative Negative Poc Leukocytes, Urine Negative Negative Poc Color, Urine Yellow Poc Clarity, Urine Clear 27 Poc Urinalysis 12/23/2017 [facility] Poc Glucose, Trace Abnormal Negative [phone] Urine Poc Bilirubin, Urine Negative Negative Poc Ketone, Urine Negative Negative Poc Specific [place], Urine 1.020 N 1.010-1.030 Poc Blood, Urine 2+ Abnormal Negative Poc pH, Urine 5.5 N 5-9 Poc Protein, Urine 2+ Abnormal Negative Poc Urobilinogen, Urine 0.2 Negative Poc Nitrite, Urine Positive Abnormal Negative Poc Leukocytes, Urine 2+ Abnormal Negative Poc Color, Urine Dark yellow Poc Clarity, Urine Cloudy 28 Urine Culture And 12/23/2017 [facility] Urine Culture SEE RESULT 29, 30 Sensitivities [phone] BELOW Laboratory test 11/10/2017 [facility] Lipase 25 U/L N 11.0-8 finding [phone] 2.0 HCG < 0.60 mIU/mL 31 D Dimer Quantitative 319 ng/mL High Less Than 230 32 CBC Auto Diff 11/10/2017 [facility] White Blood Count 9.7 10^3/uL N 3.5-10.8 [phone] Red Blood Count 4.28 10^6/uL N 4.00-5.40 [...] Cells % 0.1 Comp Metabolic Panel 11/10/2017 [facility] Sodium 136 mmol/L N 135- 145 [phone] Potassium 3.4 mmol/L Low 3.5-5.0 Chloride 103 [...] Egfr Non- 113.1 >60 Egfr 136.8 >60 33 Quantiferon Gold 09/22/2017 [facility] QuantiFERON-Tb Gold Negative Negative 34 TB [phone] Plus TB1 Ag minus Nil Result 0 IU/mL TB2 Ag minus Nil Result 0 IU/mL TB Mitogen minus Nil Result > 10.00 IU/mL TB Nil Result 0.03 IU/mL 35 Urinalysis Profile 09/18/2017 [facility] Urine Color Yellow [phone] Urine Appearance Cloudy Urine Specific [place] 1.020 N 1.010-1.030 Urine pH 6.0 N [...] Present Abnormal Absent Urine Culture And 09/18/2017 [facility] Urine Culture SEE RESULT 36 Sensitivities [phone] BELOW CBC Auto Diff 09/18/2017 [facility] White Blood 10.7 10^3/uL N 3.5- 10. [phone] Count 8 Red Blood Count 4.44 10^6/uL [...] Cells % 0 Comp Metabolic Panel 09/18/2017 [facility] Sodium 136 mmol/L Low 139- 145 [phone] Potassium 3.9 mmol/L N 3.5-5.0 Chloride 103 [...] Egfr Non- 103.7 >60 Egfr 133.3 >60 37 Laboratory 09/18/2017 [facility] C Reactive 1.15 mg/L N < 5.00 38 test finding [phone] Protein Laboratory 09/18/2017 [facility] Gardnerella/Y SEE RESULT 39, test finding [phone] east: Vaginal BELOW 40 Dna Laboratory 08/25/2017 [facility] Hepatitis C 617 IU/mL Abnormal Undetected 41 test finding [address] [place] [address] [phone] Laboratory 08/13/2017 [facility] Gard[place]rella/Y SEE RESULT 42 test finding [phone] east: Vaginal BELOW Dna GC/Chlamydia 08/13/2017 [facility] Chlamydia Negative Negative Amplified [phone] trachomatis Rna Rna Neisseria gonorrhoeae (GC) Rna Negative Negative Laboratory test 08/13/2017 [facility] Trichomonas Negative Negative 43 finding [phone] Vaginalis Rna Laboratory test 08/13/2017 [facility] HCG < 0.60 mIU/mL 44 finding [phone] Rapid HIV Nonreactive Nonreactive 45 Hepatitis B Surface Ag Nonreactive Nonreactive 46 Hepatitis B [place] AB 08/13/2017 [facility] Hepatitis B Surface Immune Immune Titer [phone] AB Hep B Surf AB Level 61.99 mIU/mL >12 Laboratory 08/13/2017 [facility] Hepatitis C High Abnormal Nonreactive 47 test finding [phone] Antibody Reactive Urinalysis 06/25/2017 [facility] Urine Color Yellow Profile [phone] Urine Appearance Clear Urine Specific [place] 1.013 N 1.010-1.030 Urine pH 6.0 N 5-9 Urine Urobilinogen Negative Negative Urine Ketones Trace Abnormal Negative Urine Protein Negative Negative Urine Leukocytes Negative Negative Urine Blood Negative Negative Urine Nitrite Negative Negative Urine Bilirubin Negative Negative Urine Glucose Negative Negative Urine Drug 06/25/2017 [facility] Amphetamine Ur Presumptive Abnormal None 48 SCR ED & [phone] Screen Posi <SEE Detect Pain NOTE> Clinic Barbiturates Urine Screen None Detected None Detect Benzodiazepine Urine Screen None Detected None Detect Urine Cannabinoids Screen None Detected None Detect Urine Cocaine Screen Presumptive Posi <SEE NOTE> Abnormal None Detect 49 Urine Opiates Screen Presumptive Posi <SEE NOTE> Abnormal None Detect 50 Urine Phencyclidine Screen None Detected None Detect 51 Comp Metabolic Panel 06/25/2017 [facility] Sodium 134 mmol/L N 133- 145 [phone] Potassium 3.4 mmol/L Low 3.5-5.0 Chloride 102 [...] Egfr Non- 119.5 >60 Egfr 153.7 >60 52 Laboratory test 06/21/2017 [facility] Clotest SEE RESULT 53 finding [phone] BELOW Laboratory test 06/21/2017 [facility] Surgical Interface SEE RESULT 54, 55 finding [phone] Order BELOW Laboratory test 05/26/2017 [facility] Culture Genital & SEE RESULT 56 finding [phone] Sensitivity BELOW Urinalysis 05/25/2017 [facility] Urine Color Yellow Profile [phone] Urine Appearance Clear Urine Specific [place] 1.020 N 1.010-1.030 Urine pH 6.0 N [...] Crystals Present Abnormal Absent Urine Drug 05/25/2017 [facility] Amphetamine Ur Presumptive Abnormal None 57 SCR ED & [phone] Screen Posi <SEE Detect Pain NOTE> Clinic Barbiturates Urine Screen None Detected None Detect Benzodiazepine Urine Screen None Detected None Detect Urine Cannabinoids Screen None Detected None Detect Urine Cocaine Screen Presumptive Posi <SEE NOTE> Abnormal None Detect 58 Urine Opiates Screen None Detected None Detect Urine Phencyclidine Screen None Detected None Detect 59 GC/Chlamydia 05/25/2017 [facility] Chlamydia Negative Negative Amplified Rna [phone] trachomatis Rna Neisseria gonorrhoeae (GC) Rna Negative Negative Laboratory test 05/25/2017 [facility] Urine Culture And SEE RESULT 60 finding [phone] Sensitivities BELOW CBC Auto Diff 05/25/2017 [facility] White Blood Count 9.2 10^3/uL N 3.5-10 [phone] Red Blood Count 4.56 10^6/uL N [...] Cells % 0 Comp Metabolic Panel 05/25/2017 [facility] Sodium 139 mmol/L N 133- 145 [phone] Potassium 3.9 mmol/L N 3.5-5.0 Chloride 104 [...] Egfr Non- 92.7 >60 Egfr 119.3 >60 61 Laboratory 05/25/2017 [facility] Hepatitis C High Abnormal Nonreactive 62 test finding [phone] Antibody Reactive Urinalysis 05/11/2017 [facility] Urine Color Yellow Profile [phone] Urine Appearance Cloudy Urine Specific [place] 1.010 N 1.010-1.030 Urine pH 7.0 N [...] Urine Yeast Present Abnormal Absent GC/Chlamydia 05/11/2017 [facility] Chlamydia Negative Negative Amplified Rna [phone] trachomatis Rna Neisseria gonorrhoeae (GC) Rna Negative Negative Laboratory test 05/11/2017 [facility] Urine Culture And SEE RESULT 63 finding [phone] Sensitivities BELOW CBC Auto Diff 05/11/2017 [facility] White Blood Count 11.0 High 3.5- 0 [phone] 10^3/uL 0.8 Red Blood Count 4.39 10^6/uL [...] Cells % 0 Comp Metabolic Panel 05/11/2017 [facility] Sodium 135 mmol/L N 133- 145 [phone] Potassium 3.8 mmol/L N 3.5-5.0 Chloride 101 [...] Egfr Non- 113.1 >60 Egfr 145.4 >60 64 Laboratory test finding 05/11/2017 [facility] Lipase 24 U/L N 11.0- 82.0 [phone] C Reactive Protein < 1.00 mg/L N < 5.00 65 HCG < 0.60 mIU/mL 66 Blood Culture SEE RESULT BELOW 67 Rapid Influenza A 04/19/2017 [facility] Influenza A NEGATIVE Negative 68 & B Molecular [phone] Molecular Influenza B Molecular NEGATIVE Negative Laboratory test 04/19/2017 [facility] Rapid Strep Negative Negative 69 finding [phone] Molecular HIV 1/2 AB 04/08/2017 [facility] HIV 1 2 Nonreactive Nonreactive 70 Evaluation [phone] Antibody Laboratory test 04/08/2017 [facility] Hepatitis C 605085 IU/mL Undetected 71 finding [phone] Rna Quant Hepatitis C Genotype 1a Undetected 72 Comp Metabolic Panel 04/05/2017 [facility] Sodium 138 mmol/L N 133-145 [address] [place] [address] [phone] Potassium 4.2 mmol/L N 3.5-5.0 Chloride 106 [...] Egfr Non- 100.3 >60 Egfr 129.0 >60 73 Hepatitis 04/05/2017 [facility] Hepatitis B Nonreactive Nonreactive Acute Panel [address] [place] [address] Antigen [phone] Hepatitis B Core IgM Nonreactive Nonreactive Hepatitis A AB IgM Nonreactive Nonreactive Hepatitis C Antibody High Reactive Abnormal Nonreactive 74 CBC Auto Diff 04/04/2017 [facility] White Blood Count 8.3 10^3/uL N 3.5-10.8 [phone] Red Blood Count 4.41 10^6/uL N 4.0-5.4 [...] Blood Cells % 0.1 Laboratory test 04/04/2017 [facility] Hemoglobin A1c 5.1 % N 4.0-5.6 75 finding [phone] (Glyco HGB) Comp Metabolic 04/04/2017 [facility] Sodium 133 mmol/L N 133-145 Panel [phone] Potassium 4.4 mmol/L N 3.5-5.0 Chloride 102 [...] Egfr Non- 115.1 >60 Egfr 148.1 >60 76 Laboratory test 04/04/2017 [facility] Creatine Kinase(CK) 105 U/L N 10-223 finding [phone] TSH (Thyroid Stim Horm) 0.88 mcIU/mL N 0.34-5.60 Vitamin B12 984 pg/mL High [phone] 77 Ssa/SSB Abs Igg 04/04/2017 [facility] SS-A/Ro Antibody <0.2 U 78 [phone] SS-B/La Antibody <0.2 U 79 Connective Tissue Panel 04/04/2017 [facility] Anti-Nuclear Antibody 0.8 U 80 [phone] Cyclic Citrullinated Peptide <15.6 U 81 Interpretation See Comment 82 Laboratory test 04/04/2017 [facility] Lyme Disease Negative Negative 83 finding [phone] Serology CBC Auto Diff 01/11/2017 [facility] White Blood 9.6 10^3/uL N 3.5- 10.8 [phone] Count Red Blood Count 4.41 10^6/uL N [...] % 0.1 N Comp Metabolic Panel 01/11/2017 [facility] Sodium 137 mmol/L N 133- 145 [phone] Potassium 4.2 mmol/L N 3.5-5.0 Chloride 105 [...] 80.0 N >60 Egfr 102.9 N >60 84 Laboratory test finding 01/11/2017 [facility] Acetaminophen < 15 g/ mL N 85 [phone] Alcohol < 10 mg/dL N <10 Salicylate < 2.50 mg/dL N <30 TSH (Thyroid Stim Horm) 1.01 mcIU/mL N 0.34-5.60 Urine Drug 01/11/2017 [facility] Amphetamine Ur None Detected N None Detect SCR ED & [phone] Screen Pain Clinic Barbiturates Urine Screen None Detected N None Detect Benzodiazepine Urine Screen None Detected N None Detect Urine Cannabinoids Screen None Detected N None Detect Urine Cocaine Screen Presumptive Posi <SEE NOTE> Abnormal None Detect 86 Urine Opiates Screen Presumptive Posi <SEE NOTE> Abnormal None Detect 87 Urine Phencyclidine Screen None Detected N None Detect 88 Urinalysis Profile 01/11/2017 [facility] Urine Color Alexsandra N [phone] Urine Appearance Cloudy N Urine Specific [place] 1.026 N 1.010-1.030 Urine pH 7.0 N [...] Crystals Present Abnormal Absent Laboratory test 01/11/2017 [facility] Urine Culture And SEE RESULT 89 finding [phone] Sensitivities BELOW Urinalysis 11/20/2016 [facility] Urine Color Colorless N Profile [phone] Urine Appearance Clear N Urine Specific [place] 1.002 Low 1.010-1.030 Urine pH 6.0 N [...] Bacteria Absent N Absent Urine Drug 11/20/2016 [facility] Amphetamine Ur None Detected N None Detect SCR ED & [phone] Screen Pain Clinic Barbiturates Urine Screen None Detected N None Detect Benzodiazepine Urine Screen None Detected N None Detect Urine Cannabinoids Screen None Detected N None Detect Urine Cocaine Screen Presumptive Posi <SEE NOTE> Abnormal None Detect 90 Urine Opiates Screen None Detected N None Detect Urine Phencyclidine Screen None Detected N None Detect 91 CBC Auto Diff 11/20/2016 [facility] White Blood Count 10.8 10^3/uL N 3.5-10.8 [phone] Red Blood Count 4.62 10^6/uL N 4.0-5.4 [...] % 0.1 N Comp Metabolic Panel 11/20/2016 [facility] Sodium 138 mmol/L N 133- 145 [phone] Potassium 4.0 mmol/L N 3.5-5.0 Chloride 106 [...] 116.1 N >60 Egfr 149.3 N >60 92 Laboratory test finding 11/20/2016 [facility] Acetaminophen < 15 g/ mL N 93 [phone] Alcohol 77 mg/dL High <10 Salicylate < 2.50 mg/dL N <30 TSH (Thyroid Stim Horm) 0.88 mcIU/mL N 0.34-5.60 Urine Drug Screen Inhouse 11/02/2016 In House Ua Cocaine - Ua Opiates - Ua Amphetamines - Urine Methanphetamines - Urine Benzodiazepines QN [place] - Urine Oxycodone QL + Urine Drug Screen Inhouse 10/07/2016 In House Ua Cocaine - Ua Opiates - Ua Amphetamines - Urine Methanphetamines - Urine Benzodiazepines QN [place] - Urine Oxycodone QL + Laboratory test 09/09/2016 [facility] Culture Genital & SEE RESULT 94 finding [phone] Sensitivity BELOW Urine Drug Screen 09/09/2016 In House Ua Cocaine - Inhouse Ua Opiates + Ua Amphetamines - Urine Methanphetamines - Urine Benzodiazepines QN [place] - Urine Oxycodone QL + Urine Drug Screen Inhouse 08/03/2016 In House Ua Cocaine _ Ua Opiates + Ua Amphetamines _ Urine Methanphetamines _ Urine Benzodiazepines QN [place] _ Urine Oxycodone QL + Laboratory test finding 07/29/2016 In House Culture Throat Rapid positive Screen Urine Drug Screen Inhouse 07/13/2016 In House Ua Cocaine + Ua Opiates + Ua Amphetamines - Urine Methanphetamines - Urine Benzodiazepines QN [place] - Urine Oxycodone QL + Ua Inhouse 06/17/2016 In House Ua Glucose - 95 Ua Bilirubin - Ua Ketones - Ua Specific [place] 1.030 Ua Blood 3+ Ua PH 5.0 Ua Protein - Ua Urobilinogen - Ua Nitrite - Ua Leukocytes - Laboratory 04/19/2016 [facility] Gardnerella/Yeast: SEE RESULT 96 test finding [phone] Vaginal Dna BELOW GC/Chlamydia 04/19/2016 [facility] Chlamydia trachomatis Negative N Negative Amplified Rna [phone] Rna Neisseria gonorrhoeae (GC) Rna Negative N Negative Laboratory test 04/19/2016 [facility] Trichomonas Negative N Negative 97 finding [phone] Vaginalis Rna Urinalysis 04/19/2016 [facility] Urine Color Alexsandra N Profile [phone] Urine Appearance Cloudy N Urine Specific [place] 1.030 N 1.010-1.030 Urine pH 5.0 N [...] Present Abnormal Absent CBC Auto Diff 04/19/2016 [facility] White Blood 12.6 10^3/uL High 3.5 -10.8 [phone] Count Red Blood Count 4.62 10^6/uL N [...] % 0 N Comp Metabolic Panel 04/19/2016 [facility] Sodium 134 mmol/L N 133- 145 [phone] Potassium 3.5 mmol/L N 3.5-5.0 Chloride 105 [...] 99.5 N >60 Egfr 128.0 N >60 98 Laboratory test finding 04/19/2016 [facility] HCG < 0.60 mIU/ mL N 99 [phone] Urine Culture And Sensitivities SEE RESULT BELOW 100 Laboratory test 03/12/2016 [facility] Rapid Strep Negative N Negative 101 finding [phone] Molecular Laboratory test 12/23/2015 [facility] Culture Genital SEE RESULT 102 finding [phone] & Sensitivity BELOW Laboratory test 12/23/2015 [facility] Cytology SEE RESULT 103 finding [phone] BELOW Laboratory test 12/23/2015 [facility] Human Papilloma Negative N Negative 104 finding [phone] Virus Rna GC/Chlamydia 12/23/2015 [facility] Chlamydia Negative N Negative Amplified Rna [phone] trachomatis Rna Neisseria gonorrhoeae (GC) Rna Negative N Negative Laboratory test 10/20/2015 [facility] Lactic Acid 0.6 mmol/L N 0.5- 2.0 105 finding [phone] CBC Auto Diff 10/20/2015 [facility] White Blood 15.8 10^3/uL High 3.5 -10.8 [phone] Count Red Blood Count 4.85 10^6/uL N [...] <50 ug/mL Toxic concentration: >120 ug/mL 4 High reactive sample are considered positive for Hepatitis C 5 The urine specimen was tested at the listed cutoffs: Drug class test level (ng/mL) Amphetamines 500 Barbiturates 200 Benzodiazepine metabolites 200 Cocaine metabolites 150 Cannabinoids 50 Opiates 300 Pcp 25 Specimen was received without chain of custody. Results should be used for medical purposes only. 6 *Ascorbic acid is present which may interfere with detection of blood. 7 SEE RESULT BELOW Name: STEPHANIE PRICE [place] : [address]: Bradley Del Rio MD Acct: [id number] Unit: [id number] AGE: 28 Location: [facility] Re07/05/18 SEX: F Status: ADM IN SPEC: [id number] KIKI: 07/05/18-[address] [facility] [address]: Catherine Conrad MD REQ: [id number] RECD: 07/05/18 STATUS: WALTER LEDEZMA DR: Cindy Lee RPA-C _ SOURCE: URINE SPDESC: ORDERED: Urine Culture Procedure Result Reported Site Urine Culture Final 07/06/18- 1304 ML No growth of clinically significant organisms * ML - Main Lab . END OF REPORT DEPARTMENT OF PATHOLOGY, [address] [place] [address] Kevin Rebolledo M.D. Director [facility] # [id number] SEE RESULT BELOW Name: STEPHANIE PRICE : [address]: Catherine Conrad MD Acct: [id number] Unit: [id number] AGE: 28 Location: ED Re07/04/18 SEX: F Status: REG ER SPEC: [id number] KIKI: 07/04/[address]: Catherine Conrad MD REQ: [id number] RECD: 07/04/18 STATUS: WALTER LEDEZMA DR: Cindy ARAUZ _ SOURCE: URINE SPDESC: ORDERED: Urine Culture Procedure Result Reported Site Urine Culture Final 07/05/18- 0848 ML No Growth (<1,000 CFU/mL) * ML - Main Lab . END OF REPORT DEPARTMENT OF PATHOLOGY, [address] [place] [address] Kevin Rebolledo M.D. Director [facility] # [id number] 9 <5.0 Negative 5.0 - 25.0 Indeterminate (Repeat testing recommended after 72 hours) >25.0 Positive Perimenopausal women can display HCG levels of up to 20 mIU/mL 10 Therapeutic concentration: <50 ug/mL Toxic concentration: >120 ug/mL 11 Because ethnic data is not always [...] 5 Kidney failure <15 (or dialysis) 12 *Ascorbic acid is present which may interfere with detection of blood. 13 The urine specimen was tested at the listed cutoffs: Drug class test level (ng/mL) Amphetamines 500 Barbiturates 200 Benzodiazepine metabolites 200 Cocaine metabolites 150 Cannabinoids 50 Opiates 300 Pcp 25 Specimen was received without chain of custody. Results should be used for medical purposes only. 14 SEE RESULT BELOW Name: STEPHANIE PRICE : [address]: Catherine Conrad MD Acct: [id number] Unit: [id number] AGE: 28 Location: ED Re06/22/18 SEX: F Status: DEP ER SPEC: [id number] KIKI: 06/22/[address]: Fran Yarbrough MD REQ: [id number] RECD: 06/22/18 STATUS: WALTER LEDEZMA DR: Cindy BROOKSC _ SOURCE: URINE SPDESC: ORDERED: Urine Culture Procedure Result Reported Site Urine Culture Final 06/23/18- 808 ML No growth of clinically significant organisms * ML - Main Lab . END OF REPORT DEPARTMENT OF PATHOLOGY, [address] [place] [address] Kevin Rebolledo M.D. Director [facility] # [id number] 15 Presumptive Positive Presumptive positive results are unconfirmed. 16 The urine specimen was tested at the listed cutoffs: Drug class test level (ng/mL) Amphetamines 500 Barbiturates 200 Benzodiazepine metabolites 200 Cocaine metabolites 150 Cannabinoids 50 Opiates 300 Pcp 25 Specimen was received without chain of custody. Results should be used for medical purposes only. 17 Therapeutic concentration: <50 ug/mL Toxic concentration: >120 ug/mL 18 <5.0 Negative 5.0 - 25.0 Indeterminate (Repeat testing recommended after 72 hours) >25.0 Positive Perimenopausal women can display HCG levels of up to 20 mIU/mL 19 Because ethnic data is not always readily [...] 15-29 5 Kidney failure <15 (or dialysis) 20 Presumptive Positive Presumptive positive results are unconfirmed. 21 The urine specimen was tested at the listed cutoffs: Drug class test level (ng/mL) Amphetamines 500 Barbiturates 200 Benzodiazepine metabolites 200 Cocaine metabolites 150 Cannabinoids 50 Opiates 300 Pcp 25 Specimen was received without chain of custody. Results should be used for medical purposes only. 22 <5.0 Negative 5.0 - 25.0 Indeterminate (Repeat testing recommended after 72 hours) >25.0 Positive Perimenopausal women can display HCG levels of up to 20 mIU/mL 23 Therapeutic concentration: <50 ug/mL Toxic concentration: >120 ug/mL 24 Because ethnic data is not always [...] 5 Kidney failure <15 (or dialysis) 25 Result in log IU/mL is Undetected. ADDITIONAL INFORMATION The quantification range of this assay is 15 to 100,000,000 IU/mL (1.18 log to 8.00 log IU/mL). Testing was performed using the pawel HCV test (Ronni [employer] with the pawel 6800 System. Test Performed by: [address] [id number] [place] [address] 26 Because ethnic data is not always readily [...] 15-29 5 Kidney failure <15 (or dialysis) 27 Shoe Ironer: [id number] 28 Shoe Ironer: [id number] 30 SEE RESULT BELOW Name: STEPHANIE PRICE : [address]: Viktor Delgado MD Acct: [id number] Unit: [id number] AGE: 27 Location: [facility] Re12/23/17 SEX: F Status: DEP ER SPEC: [id number] KIKI: 12/23/[address] [facility] [address]: Viktor Delgado MD REQ: [id number] RECD: 12/23/17 STATUS: WALTER LEDEZMA DR: Cindy ARAUZ _ SOURCE: URINE SPDESC: ORDERED: Urine Culture COMMENTS: [id number] Procedure Result Reported Site Urine Culture Final 12/25/17- 0941 ML Organism 1 ESCHERICHIA COLI Indiahoma Count >100,000 (Many) CFU/ML 1. ESCHERICHIA COLI [...] . END OF REPORT DEPARTMENT OF PATHOLOGY, [address] [place] [address] Kevin Rebolledo M.D. Director [facility] # [id number] 31 <5.0 Negative 5.0 - 25.0 Indeterminate (Repeat testing recommended after 72 hours) >25.0 Positive Perimenopausal women can display HCG levels of up to 20 mIU/mL 32 Please note: The following may produce a false positive D Dimer test: - Rheumatoid factor greater than 60 IU/ml - Plasma hemoglobin greater than 0.05 gm/dl - Bilirubin greater than 50 mg/dl - Lipids greater than 1000 mg/dl - FDP greater than 20 ug/ml 33 Because ethnic data is not always readily [...] 15-29 5 Kidney failure <15 (or dialysis) 34 No interferon-gamma response to M. tuberculosis antigens [...] DM et. al. Clin. Infect. Dis. 2017;64(2):111-115]. 35 Test Performed by: [facility] [address] [place] [id number] 36 SEE RESULT BELOW Name: STEPHANIE PRICE : [address]: Dimitry Ruiz MD Acct: [id number] Unit: [id number] AGE: 27 Location: ED Re09/18/17 SEX: F Status: DEP ER SPEC: [id number] KIKI: 09/18/[address]: Jenn WALLS REQ: [id number] RECD: 09/18/17 STATUS: WALTER LEDEZMA DR: Cindy Ruiz MD _ SOURCE: URINE SPDESC: ORDERED: Urine Culture Procedure Result Reported Site Urine Culture Final 09/19/17- 0734 ML No Growth (<1,000 CFU/mL) * ML - Main Lab . END OF REPORT DEPARTMENT OF PATHOLOGY, [address] [place] [address] Kevin Rebolledo M.D. Director [facility] # [id number] 37 Because ethnic data is not always [...] (or dialysis) 38 Acute inflammation: >10.00 39 Would you like to order Trichomonas Vaginalis RNA testing? Y 40 SEE RESULT BELOW Name: STEPHANIE PRICE : [address]: Dimitry Ruiz MD Acct: [id number] Unit: [id number] AGE: 27 Location: ED Re09/18/17 SEX: F Status: DEP ER SPEC: [id number] KIKI: 09/18/[address] [facility] [address]: Jenn WALLS REQ: [id number] RECD: 09/18/17 STATUS: WALTER LEDEZMA DR: Cindy Ruiz MD _ SOURCE: VAGINAL [...] or failure. Trichomonas: Vaginal DNA Probe Final 06/04/18- 0855 ML Organism 1 Negative Trichomonas CONTINUED ON NEXT PAGE DEPARTMENT OF PATHOLOGY, [address] [place] [address] Kevin Rebolledo M.D. Director [facility] # [id number] Patient: STEPHANIE PRICE [id number] (Continued) Specimen: [id number] Collected: 09/18/17 Received: 09/18/17 (Continued) Procedure Result Reported Site Trichomonas: Vaginal DNA Probe Final (continued) 09/19/17- 854 The presence or absence of T. vaginalis cannot be used as a test for therapeutic success or failure. * ML - Main Lab . END OF REPORT DEPARTMENT OF PATHOLOGY, [address] [place] [address] Kevin eRbolledo M.D. Director [facility] # [id number] 41 Result in log IU/mL is 2.79. ADDITIONAL INFORMATION The quantification range of this assay is 15 to 100,000,000 IU/mL (1.18 log to 8.00 log IU/mL). Testing was performed using the pawel HCV test ([employer] with the pawel 6800 System. Test Performed by: [facility] [address] [place] [address] 42 SEE RESULT BELOW Name: STEPHANIE PRICE : [address]: Jose Hale MD Acct: [id number] Unit: [id number] AGE: 27 Location: ED Re08/13/17 SEX: F Status: DEP ER SPEC: [id number] KIKI: 08/13/[address] [facility] [address]: Calvin Hale MD REQ: [id number] RECD: 08/13/17 STATUS: WALTER LEDEZMA DR: [facility] _ SOURCE: VAGINAL SPDESC: ORDERED: Billy,Yeast DNA [...] . END OF REPORT DEPARTMENT OF PATHOLOGY, [address] [place] [address] Kevin Rebolledo M.D. Director [facility] # [id number] 43 GC/Chlamydia Source?: Endocervical Trichomonas Source: Endocervical 44 <5.0 Negative 5.0 - 25.0 Indeterminate (Repeat testing recommended after 72 hours) >25.0 Positive Perimenopausal women can display HCG levels of up to 20 mIU/mL 45 Verbal to FINN MANSFIELD by [id number] at 0837 on 08/16/17. Results read back accurately. Submitted to [facility] via ECLRS system by [id number] at 1411 on 08/16/17. 46 Verbal to FINN MANSFIELD by [id number] at 0837 on 08/16/17. Results read back accurately. Submitted to [facility] via ECLRS system by [id number] at 1411 on 08/16/17. 47 High reactive sample are considered positive for Hepatitis C 48 Presumptive Positive Presumptive positive results are unconfirmed. 49 Presumptive Positive Presumptive positive results are unconfirmed. 50 Presumptive Positive Presumptive positive results are unconfirmed. 51 The urine specimen was tested at the listed cutoffs: Drug class test level (ng/mL) Amphetamines 500 Barbiturates 200 Benzodiazepine metabolites 200 Cocaine metabolites 150 Cannabinoids 50 Opiates 300 Pcp 25 Specimen was received without chain of custody. Results should be used for medical purposes only. 52 Because ethnic data is not always [...] 5 Kidney failure <15 (or dialysis) 53 SEE RESULT BELOW Name: STEPHANIE PRICE : [address]: William Barker MD Acct: [id number] Unit: [id number] AGE: 27 Location: [facility] Re06/21/17 SEX: F Status: DEP REF SPEC: [id number] KIKI: 06/21/17-[address] [facility] [address]: William Barker MD REQ: [id number] RECD: 06/21/171607 STATUS: WALTER LEDEZMA DR: Cindy ARAUZ _ SOURCE: GAS ANTRUM SPDESC: ORDERED: Clotest Procedure Result Reported Site Clotest Final 06/22/17- 0840 ML Clotest Negative * ML - Main Lab . END OF REPORT DEPARTMENT OF PATHOLOGY, [address] [place] [address] Kevin Rebolledo M.D. Director [facility] # [id number] 54 [id number] 55 SEE RESULT BELOW Name: STEPHANIE PRICE : [address]: William Barker MD Acct: [id number] Unit: [id number] AGE: 27 Location: [facility] Re06/21/17 SEX: F Status: DEP REF SPEC: [id number] KIKI: 06/21/17-[address] [facility] [address]: William Barker MD REQ: [id number] RECD: 06/21/173497 STATUS: DESHAUN LEDEZMA DR: Cindy eLe [facility] _ ORDERED: LEVEL 4 COMMENTS: [id number] FINAL DIAGNOSIS Duodenum, biopsy: -- Benign small [...] 1147 END OF REPORT DEPARTMENT OF PATHOLOGY, [address] [place] [address] Kevin Rebolledo M.D. Director [facility] # [id number] 56 SEE RESULT BELOW Name: STEPHANEI PRICE : [address]: Cindy ARAUZ Acct: [id number] Unit: [id number] AGE: 27 Location: [facility] Re05/26/17 SEX: F Status: REG REF SPEC: [id number] KIKI: 05/26/17-[address]: Cindy ARAUZ REQ: [id number] RECD: 05/26/17 STATUS: COMP _ SOURCE: VAGINAL SPDESC: ORDERED: Genital Culture COMMENTS: [id number] Procedure Result Reported Site Genital Culture Final 05/28/17- 1135 ML Organism 1 YEAST Quantity 1+ Organism 2 BILLY VAGINALIS-PRESUMPTIVE Quantity 2+ Organism 3 NORMAL SALVADOR Quantity 3+ Routine genital cultures do not include selective agar for Neisseria gonorrhoeae. Molecular testing offers better test sensitivity and therefore is the preferred test methodology for identifying this organism. * ML - [facility] ([facility]) . END OF REPORT * ML=Testing performed at Main Lab DEPARTMENT OF PATHOLOGY, [address] [place] [address] Kevin Rebolledo M.D. Director [facility] # [id number] 57 Presumptive Positive Presumptive positive results are unconfirmed. 58 Presumptive Positive Presumptive positive results are unconfirmed. 59 The urine specimen was tested at the listed cutoffs: Drug class test level (ng/mL) Amphetamines 500 Barbiturates 200 Benzodiazepine metabolites 200 Cocaine metabolites 150 Cannabinoids 50 Opiates 300 Pcp 25 Specimen was received without chain of custody. Results should be used for medical purposes only. 60 SEE RESULT BELOW Name: STEPHANIE PRICE [place] : [address]: Naman Mo MD Acct: [id number] Unit: [id number] AGE: 27 Location: ED Re05/25/17 SEX: F Status: DEP ER SPEC: [id number] KIKI: 05/25/[address] [facility] [address]: Naman Mo MD REQ: [id number] RECD: 05/25/17 STATUS: WALTER LEDEZMA DR: Cindy Lee [facility]PA-C _ SOURCE: URINE SPDESC: ORDERED: Urine Culture Procedure Result Reported Site Urine Culture Final 05/27/17- 899 ML No growth of clinically significant organisms * ML - MAIN LAB ([facility]) . END OF REPORT * ML=Testing performed at Main Lab DEPARTMENT OF PATHOLOGY, [address] [place] [address] Kevin Rebolledo M.D. Director [facility] # [id number] 61 Because ethnic data is not always readily [...] 15-29 5 Kidney failure <15 (or dialysis) 62 High reactive sample are considered positive for Hepatitis C 63 SEE RESULT BELOW Name: STEPHANIE PRICE [place] : [address]: Garry Batista MD Acct: [id number] Unit: [id number] AGE: 27 Location: ED Re05/11/17 SEX: F Status: DEP ER SPEC: [id number] KIKI: 05/11/[address]: Garry Batista MD REQ: [id number] RECD: 05/11/17 STATUS: WALTER LEDEZMA DR: [facility] Cindy Lee [facility] _ SOURCE: URINE SPDESC: ORDERED: Urine Culture Procedure Result Reported Site Urine Culture Final 05/12/17- 1651 ML No Growth (<1,000 CFU/mL) * ML - MAIN LAB ([facility]) . END OF REPORT * ML=Testing performed at Main Lab DEPARTMENT OF PATHOLOGY, [address] [place] [address] Kevin Rebolledo M.D. Director [facility] # [id number] 64 Because ethnic data is not always readily [...] 15-29 5 Kidney failure <15 (or dialysis) 65 Acute inflammation: >10.00 66 <5.0 Negative 5.0 - 25.0 Indeterminate (Repeat testing recommended after 72 hours) >25.0 Positive Perimenopausal women can display HCG levels of up to 20 mIU/mL 67 SEE RESULT BELOW Name: STEPHANIE PRICE : [address]: Garry Batista MD Acct: [id number] Unit: [id number] AGE: 27 Location: ED Re05/11/17 SEX: F Status: DEP ER SPEC: [id number] KIKI: 05/11/[address] [facility] [address]: Garry Batista MD REQ: [id number] RECD: 05/11/17 STATUS: WALTER [facility] DR: [facility] Cindy ARAUZ _ SOURCE: BLOOD,VENO SPDESC: ORDERED: Blood Cult Procedure Result Reported Site Aerobic Culture Bottle Final 05/16/17- 2129 ML No Growth Day 5 Anaerobic Culture Bottle Final 05/16/17- 2129 ML No Growth Day 5 * ML - MAIN LAB ([facility]) . END OF REPORT * ML=Testing performed at Main Lab DEPARTMENT OF PATHOLOGY, [address] [place] [address] Kevin Rebolledo M.D. Director [facility] # [id number] 68 Shoe Ironer: [id number] 69 Shoe Ironer: [id number] 70 It is recognized that currently available assays [...] 95% confidence interval of 99.78 to 99.96%. 71 Result in log IU/mL is 5.56. ADDITIONAL INFORMATION The quantification range of this assay is 15 to 100,000,000 IU/mL (1.18 log to 8.00 log IU/mL). Testing was performed using the pawel HCV test ([employer] with the pawel 1DayLater0 System. Test Performed by: [facility] - [address] [address] 72 ADDITIONAL INFORMATION This test was performed using the [place] RealTime HCV Genotype II assay ([employer] [place], [place]). Test Performed by: [address] [address] 73 Because ethnic data is not always readily [...] 15-29 5 Kidney failure <15 (or dialysis) 74 High reactive sample are considered positive for Hepatitis C 75 Therapeutic target for the treatment of diabetes mellitus patients is <7% HBA1C, and in selective patients <6.0%. Please refer to [place] [employer] diabetic care guidelines for further information. 76 Because ethnic data is not always readily [...] 15-29 5 Kidney failure <15 (or dialysis) 77 Normal Range 180 to 914 Indeterminate Range 145 to 180 Deficient Range <145 78 REFERENCE VALUE <1.0 (Negative) 79 REFERENCE VALUE <1.0 (Negative) Test Performed by: [facility] - [address] [address] 80 REFERENCE VALUE <=1.0 (Negative) 81 REFERENCE VALUE <20.0 (Negative) 82 Tests for antibodies to dsDNA and KEYLA antigens are not performed automatically unless the JACQUIE result is > or= 3.0 U. Studies performed at [facility] indicate that positive JACQUIE results <3.0 U are rarely accompanied by positive second order tests. Test Performed by: [address] [address] 83 Serologic response to B. burgdorferi infection is not detected, but cannot rule out early infection during which low or undetectable antibody levels to B. burgdorferi may be present. If clinically indicated, a new serum specimen should be submitted in 7-14 days. Test Performed by: [facility] [address] [place] [address] 84 Because ethnic data is not always readily [...] 15-29 5 Kidney failure <15 (or dialysis) 85 Therapeutic concentration: <50 ug/mL Toxic concentration: >120 ug/mL 86 Presumptive Positive Presumptive positive results are unconfirmed. 87 Presumptive Positive Presumptive positive results are unconfirmed. 88 The urine specimen was tested at the listed cutoffs: Drug class test level (ng/mL) Amphetamines 500 Barbiturates 200 Benzodiazepine metabolites 200 Cocaine metabolites 150 Cannabinoids 50 Opiates 300 Pcp 25 Specimen was received without chain of custody. Results should be used for medical purposes only. 89 SEE RESULT BELOW Name: STEPHANIE PRICE : [address]: Jeremy Ruvalcaba MD Acct: [id number] Unit: [id number] AGE: 26 Location: ED Re01/11/17 SEX: F Status: REG ER SPEC: [id number] KIKI: 01/11/[address]: Tee Vela MD REQ: [id number] RECD: 01/11/17 STATUS: WALTER LEDEZMA DR: [facility]indy [facility] _ SOURCE: URINE SPDESC: ORDERED: Urine Culture Procedure Result Reported Site Urine Culture Final 01/13/17912 ML Mixed salvador; possible contamination. Suggest resubmission. * ML - MAIN LAB ([facility]) . END OF REPORT * ML=Testing performed at Main Lab DEPARTMENT OF PATHOLOGY, [address] [place] [address] Kevin Rebolledo M.D. Director [facility] # [id number] 90 Presumptive Positive Presumptive positive results are unconfirmed. 91 The urine specimen was tested at the listed cutoffs: Drug class test level (ng/mL) Amphetamines 500 Barbiturates 200 Benzodiazepine metabolites 200 Cocaine metabolites 150 Cannabinoids 50 Opiates 300 Pcp 25 Specimen was received without chain of custody. Results should be used for medical purposes only. 92 Because ethnic data is not always readily [...] 15-29 5 Kidney failure <15 (or dialysis) 93 Therapeutic concentration: <50 ug/mL Toxic concentration: >120 ug/mL 94 SEE RESULT BELOW Name: STEPHANIE PRICE : [address]: Cindy ARAUZ Acct: [id number] Unit: [id number] AGE: 26 Location: [facility] Re09/09/16 SEX: F Status: REG REF SPEC: [id number] KIKI: 09/09/[address]: Cindy ARAUZ REQ: [id number] RECD: 09/10/168473 STATUS: COMP _ SOURCE: VAGINAL SPDESC: ORDERED: Genital Culture COMMENTS: [id number] Procedure Result Reported Site Genital Culture Final 09/12/16- 1157 ML Organism 1 YEAST Quantity 1+ Organism 2 NORMAL SALVADOR Quantity 3+ * ML - MAIN LAB ([facility]) . END OF REPORT * ML=Testing performed at Main Lab DEPARTMENT OF PATHOLOGY, [address] [place] [address] Kevin Rebolledo M.D. Director [facility] # [id number] 95 void, hazy, dark yellow 96 SEE RESULT BELOW Name: STEPHANIE PRICE [place] : [address]: German Hernandez MD Acct: [id number] Unit: [id number] AGE: 26 Location: ED Re04/19/16 SEX: F Status: DEP ER SPEC: [id number] KIKI: 04/19/[address] [facility] [address]: German Hernandez MD REQ: [id number] RECD: 04/19/16 STATUS: WALTER LEDEZMA DR: Drew [...] or failure. * ML - MAIN LAB ([facility]) . END OF REPORT * ML=Testing performed at Main Lab DEPARTMENT OF PATHOLOGY, [address] [place] [address] Kevin Rebolledo M.D. Director [facility] # [id number] 97 GC/Chlamydia Source?: Endocervical Trichomonas Source: Endocervical 98 Because ethnic data is not always readily [...] 15-29 5 Kidney failure <15 (or dialysis) 99 <5.0 Negative 5.0 - 25.0 Indeterminate (Repeat testing recommended after 72 hours) >25.0 Positive Perimenopausal women can display HCG levels of up to 20 mIU/mL 100 SEE RESULT BELOW Name: STEPHANIE PRICE [place]ERT[place] : [address]: German Hernandez MD Acct: [id number] Unit: [id number] AGE: 26 Location: ED Re04/19/16 SEX: F Status: DEP ER SPEC: [id number] KIKI: 04/19/[address] [facility] [address]: German Hernandez MD REQ: [id number] RECD: 04/19/16 STATUS: WALTER LEDEZMA DR: Drew Goncalves MD _ SOURCE: URINE SPDESC: ORDERED: Urine Culture Procedure Result Reported Site Urine Culture Final 04/20/16- 1616 ML No Growth (<1,000 CFU/mL) * ML - MAIN LAB ([facility]) . END OF REPORT * ML=Testing performed at Main Lab DEPARTMENT OF PATHOLOGY, [address] [place] [address] Kevin Rebolledo M.D. Director [facility] # [id number] 101 Shoe Ironer: [id number] FARSHAD HERNANDEZ 102 SEE RESULT BELOW Name: STEPHANIE PRICE : [address]: Jeremy Godoy MD Acct: [id number] Unit: [id number] AGE: 25 Location: [facility] Re12/23/15 SEX: F Status: REG REF SPEC: [id number] KIKI: 12/23/[address]: Jeremy Godoy MD REQ: [id number] RECD: 12/24/15140 STATUS: COMP _ SOURCE: VAGINAL SPDESC: ORDERED: Genital Culture COMMENTS: [id number] Procedure Result Reported Site Genital Culture Final 12/26/15- 1450 ML Organism 1 BILLY VAGINALIS - PRESUMPTIVE Quantity 3+ Organism 2 YEAST Quantity 2+ Organism 3 NORMAL SALVADOR Quantity 1+ * ML - MAIN LAB ([facility]) . END OF REPORT * ML=Testing performed at Main Lab DEPARTMENT OF PATHOLOGY, [address] [place] [address] Kevin Rebolledo M.D. Director [facility] # [id number] 103 SEE RESULT BELOW Name: STEPHANIE PRICE : [address]: Jeremy Godoy MD Acct: [id number] Unit: [id number] AGE: 25 Location: [facility] Re12/23/15 SEX: F Status: REG REF SPEC: [id number] KIKI: 12/23/[address]: Jeremy Godoy MD REQ: [id number] RECD: 12/24/157662 STATUS: SOUT _ ORDERED: IMAGE ANALYSIS, HPV/Thin Prep COMMENTS: [id number] FINAL DIAGNOSIS Negative for Intraepithelial lesion or [...] was evaluated with the assistance of the Greyson InternationalPrep Test Imaging System. Due to cytologic findings at the feather shaper microscope, comprehensive manual rescreening by a Traffic Safety Administrator may be required. The Pap Smear is [...] at Main Lab DEPARTMENT OF PATHOLOGY, [address] [place] [address] Kevin Rebolledo M.D. Director [facility] # [id number] 104 The high-risk HPV types detected by the assay include: 16, 18, 31, 33, 35, 39, 45, 51, 52, 56, 58, 59, 66, and 68. 105 [facility] Severe Sepsis and Septic Shock Management Bundle Measure requires all lactic acids initially measuring >2.0 mmol/L be repeated. Procedures Date Code Description Status 07/31/2016 87574 SC/Im Injections Completed 12/23/2015 48543 Anoscopy Diagnostic Completed Encounters Type Date Location Provider Dx Diagnosis Office Visit 08/14/2018 Main Office Maty Isadora, F25.0 Schizoaffective 10:20a P.A. disorder, bipolar type F51.3 Sleepwalking [somnambulism] Office Visit 08/05/2018 11:15a Main Office Bruno Clement, F51.3 Sleepwalking D.O. [somnambulism] T43.595A Adverse effect of oth antipsychotics and neuroleptics, init Office Visit 08/01/2018 3:50p Main Office Cindy Lee PA F31.2 Bipolar disord, crnt episode manic severe w psych features F11.11 Opioid abuse, in remission M54.9 Dorsalgia, unspecified K04.7 Periapical abscess without sinus Office Visit 07/03/2018 10:20a Main Office Maty Muir, F31.2 Bipolar disord, P.A. crnt episode manic severe w psych features F41.9 [...] Office Visit 04/29/2018 10:30a Main Office Cindy Lee F11.10 Opioid abuse, PA uncomplicated F31.9 Bipolar [...] Office Visit 04/07/2017 1:55p Main Office Cindy Lee, KAVITA B18.2 Chronic viral hepatitis C F11.21 Opioid dependence, in remission R10.84 Generalized abdominal pain G43.009 Migraine w/o aura, not intractable, w/o status migrainosus M54.9 Dorsalgia, unspecified Office Visit 03/15/2017 3:50p Main Office Cidny Lee, F25.0 Schizoaffective PA disorder, bipolar type [...] disorder, unspecified R31.9 Hematuria, unspecified Z79.899 Other intermediate (current) drug therapy Office Visit 12/23/2015 2:00p Main Office Jeremy Gomez Z71.89 Other specified Magda Godoy counseling R10.84 Generalized abdominal pain R19.5 Other fecal abnormalities Z80.49 Family history of malignant neoplasm of other genital organs Plan of Treatment Future Appointment(s):09/12/2018 1:50 pm - Cindy Lee PA at Main [id number] 3:15 pm - Nurse's Schedule at Main [id number]/07/2018 3:15 pm - Cindy Lee PA at Main Pmdppj7108/01/2018 - Cindy Lee, PAF31.2 Bipolar disorder, current episode manic severe with psychotiComments:Recent hospitalization, see HPI. Pt seeing mental health, has upcoming appt. All med adjustments to be made only by psychiatrist.F11.11 Opioid abuse, in remissionComments:Pt 70 days sober. She is seeing Dr. Smith at [facility], appt tomorrow.M54.9 Dorsalgia, unspecifiedNew Medication:Lumbar Corset Brace - use as directedComments:Rx for lumbar brace, pt encouraged to wear it intermittently.K04.7 Periapical abscess without sinusNew Medication:Lidocaine Viscous 2 % - 10ml orally, swish and spit, every 3 hours as needed for dental painOramagic Plus 10 % - swish and spit as needed for dental painComments:Rx for viscous lidocaine for dental pain , pt to f/u w dentist.
[2018-09-11 10:55] VITALS: BP 89/51
--- NOTE | 2018-09-11 11:43 | UC ---
Throat Pain/Nasal Denny HPI - HPI Summary HPI Summary: started [address], runny nose. 2-3 days ago she started to experience R ear pain and swollen glands - History of Current Complaint Chief Complaint: UCRespiratory Stated Complaint: SORE THROAT Time Seen by Provider: 09/11/18 11:24 Hx Obtained From: Patient Hx Last Menstrual Period: Nexplanon, LNMP about 2 wks ago ?: No Onset/Duration: Gradual Onset Severity: Moderate Pain Intensity: 8 Cough: None Associated Signs & Symptoms: Positive: Sinus Discomfort. Negative: Fever - Allergies/Home Medications Allergies/Adverse Reactions: Allergies Allergy/AdvReac Type Severity Reaction Status Date / Time amoxicillin [From Augmentin] Allergy Hives Verified 09/11/18 10:55 clavulanic acid Allergy Hives Verified 09/11/18 10:55 [From Augmentin] naloxone [From Suboxone] Allergy swelling Verified 09/11/18 10:55 hives Penicillins Allergy Hives Verified 09/11/18 10:55 Home Medications: Home Medications Buprenorphine TAB* [Subutex TAB*] 8 mg SL TID MDD 16mg 09/11/18 [History] PMH/Surg Hx/FS Hx/Imm Hx Previously Healthy: Yes Respiratory History: Other - mono Other History Of: Hepatitis C - Surgical History Surgical History: Yes Surgery Procedure, Year, and Place: 06/14/14. 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 Negative: Fever, Chills Skin: Positive: Negative. Negative: Rash ENT: Positive: Sore Throat, Ear Ache, Sinus Congestion, Other - swollen glands Respiratory: Positive: Negative. Negative: Cough Cardiovascular: Positive: Negative Gastrointestinal: Positive: Negative. Negative: Vomiting, Diarrhea Neurovascular: Positive: Negative Neurological: Positive: Negative. Negative: Headache Psychological: Positive: Negative Physical Exam Triage Information Reviewed: Yes Appearance: Well-Appearing, No Pain Distress, Well-Nourished Vital Signs: Initial Vital Signs Temp 98.6 F 09/11/18 10:52 Pulse 96 09/11/18 10:52 Resp 18 09/11/18 10:52 BP 89/51 09/11/18 10:52 Pulse Ox 97 09/11/18 10:52 Vital Signs Reviewed: Yes Eyes: Positive: Conjunctiva Clear ENT: Positive: Pharyngeal erythema, Nasal congestion, TM red - R TM red, Left normal, Tonsillar swelling. Negative: Tonsillar exudate Neck: Positive: Tenderness @, Enlarged Nodes @ Respiratory Exam: Normal Respiratory: Positive: Lungs clear Cardiovascular Exam: Normal Cardiovascular: Positive: RRR Neurological Exam: Normal Psychological Exam: Normal Skin Exam: Normal Throat Pain/Nasal Course/Dx - Differential Dx/Diagnosis Differential Diagnosis/HQI/PQRI: Laryngitis, Mononucleosis, Otitis Media, Sinusitis, Tonsillitis, URI Provider Diagnosis: Otitis, Upper respiratory infection Discharge - Sign-Out/Discharge Documenting (check all that apply): Patient Departure All imaging exams completed and their final reports reviewed: No Studies - Discharge Plan Condition: Stable Disposition: HOME Prescriptions: Azithromycin TAB* [Zithromax TAB (Z-TO) 250 mg #6 tabs] 2 tab PO .TODAY, THEN 1 DAILY #1 to Patient Education Materials: Ear Infection (ED), Upper Respiratory Infection ( ED) Referrals: Rosa ARAUZ,Cindy Lynn [Primary Care Provider] - 2 Days (for recheck) Additional Instructions: drink plenty of fluids start z-to and take as directed use over the counter ibuprofen or Tylenol as directed for pain and fever - Billing Disposition and Condition Condition: STABLE Disposition: Home - Attestation Statements Provider Attestation: I was available for consult. This patient was seen by the ANNA. The patient was not presented to, seen by, or examined by me. -Kodi
== END 2018-09-11 12:00 | disposition home or self-care (01) ==
LOC: UCEAST 10:47
DX: J06.9 Acute upper respiratory infection, unspecified (principal); H66.91 Otitis media, unspecified, right ear; F17.210 Nicotine dependence, cigarettes, uncomplicated; Z88.0 Allergy status to penicillin; Z88.5 Allergy status to narcotic agent
CPT/HCPCS: 87651; 99212; G0463

== ENCOUNTER 2018-12-24 10:27 | Emergency (ER) | payer OTHER ==
[2018-12-24 11:34] VITALS: BP 105/74
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
== END 2018-12-24 12:28 | disposition home or self-care (01) ==
LOC: UCEAST 10:27
DX: N39.0 Urinary tract infection, site not specified (principal); B19.20 Unspecified viral hepatitis C without hepatic coma; F17.210 Nicotine dependence, cigarettes, uncomplicated; Z88.0 Allergy status to penicillin
CPT/HCPCS: 81003; 84702; 87077; 87086; 87186; 99212; G0463

== ENCOUNTER 2019-09-07 22:06 | Inpatient (IN) ==
[2019-09-07 22:34] LABS: Urine Appearance Cloudy; Urine Bilirubin Negative (Negative); Urine Blood Negative (Negative); Urine Color Amber; Urine Glucose Negative (Negative); Urine Ketones Trace (Negative); Urine Nitrite Negative (Negative); Urine Protein Negative (Negative); Urine Specific Gravity 1.023 (1.010-1.030); Urine Urobilinogen Negative (Negative)
[2019-09-07 22:38] LABS: Urine Bacteria 1+ (Absent); Urine Red Blood Cell 2+(6-10/hpf) (Absent); Urine Squamous Epithelial Cell Present (Absent); Urine White Blood Cell 1+(6-10/hpf) (Absent)
[2019-09-07 23:01] LABS: Urine Benzodiazepine Screen None Detected (None Detect); Urine Opiates Screen None Detected (None Detect)
[2019-09-08] MEDS ORDERED: Nicotine GUM 2MG FRUIT FLAVOR PO ONE (00:10)
[2019-09-08 03:55] LABS: ABS Basophils 0.1 10^3/ul (0-0.2); ABS Eosinophils 0.3 10^3/ul (0-0.6); ABS Lymphocytes 4.1 10^3/ul (1.0-4.8); ABS Monocytes 0.5 10^3/ul (0-0.8); Eosinophil % 2.5 %; Hematocrit 40 % (35-47); Hemoglobin 13.8 g/dL (12.0-16.0); Lymphocyte % 36.9 %; Mean Corpuscular HGB Conc 34 g/dL (31-36); Mean Corpuscular Hemoglobin 29 pg (27-31); Mean Corpuscular Volume 85 fL (80-97); Mean Platelet Volume 8.2 fL (7.4-10.4); Nucleated Red Blood Cells % 0.1; Platelet Count 268 10^3/uL (150-450); Red Blood Count 4.71 10^6 /uL (3.70-4.87); Red Cell Distribution Width 13 % (10-15); White Blood Count 11.1 10^3/uL (3.5-10.8)
[2019-09-08 04:11] LABS: ALT 14 U/L (7-52); AST 16 U/L (13-39); Albumin 4.7 g/dL (3.2-5.2); Albumin/Globulin Ratio 1.7 (1-3); Alkaline Phosphatase 74 U/L (34-104); Anion Gap 8 mmol/L (2-11); BUN/Creatinine Ratio 15.1 (8-20); Blood Urea Nitrogen 11 mg/dL (6-24); CO2 Carbon Dioxide 24 mmol/L (22-32); Calcium 9.7 mg/dL (8.6-10.3); Chloride 106 mmol/L (101-111); EGFR African American 115.7 (>60); EGFR Non-African American 95.6 (>60); Globulin 2.8 g/dL (2-4); Glucose 95 mg/dL (70-100); Potassium 3.7 mmol/L (3.5-5.0); Sodium 138 mmol/L (135-145); Total Protein 7.5 g/dL (6.4-8.9)
[2019-09-08 04:18] LABS: HCG Pregnancy < 0.60 mIU/mL
[2019-09-08 04:28] LABS: Acetaminophen < 15 mcg/mL; Alcohol, S < 10 mg/dL (<10); Salicylate < 2.50 mg/dL (<30)
[2019-09-08 04:43] LABS: TSH (Thyroid Stimulating Horm) 1.41 mcIU/mL (0.34-5.60)
[2019-09-08] MEDS ORDERED: Al Hydrox/Mg Hydrox/Simet LIQ 30 ML UDC PO PRN (04:59)
[2019-09-08] MEDS: Vitamin THERAPEUTIC TAB PO SCH (09:30)
[2019-09-08] MEDS: Nicotine GUM 2MG FRUIT FLAVOR PO PRN ×3 (12:50→18:28)
[2019-09-09] MEDS: Nicotine GUM 2MG FRUIT FLAVOR PO PRN ×5 (02:17→17:07)
[2019-09-09 08:19] LABS: HDL Cholesterol 43.6 mg/dL
[2019-09-09] MEDS: Vitamin THERAPEUTIC TAB PO SCH (08:20)
[2019-09-10] MEDS: Nicotine GUM 2MG FRUIT FLAVOR PO PRN ×4 (07:32→22:57)
[2019-09-10] MEDS: Vitamin THERAPEUTIC TAB PO SCH (08:26)
[2019-09-11] MEDS: Nicotine GUM 2MG FRUIT FLAVOR PO PRN ×6 (01:56→18:32)
[2019-09-11] MEDS: Vitamin THERAPEUTIC TAB PO SCH (09:10)
[2019-09-12] MEDS: Nicotine GUM 2MG FRUIT FLAVOR PO PRN ×6 (01:53→20:44)
[2019-09-12] MEDS: Vitamin THERAPEUTIC TAB PO SCH (11:29)
[2019-09-13] MEDS: Nicotine GUM 2MG FRUIT FLAVOR PO PRN ×6 (01:45→20:34)
[2019-09-13] MEDS: Vitamin THERAPEUTIC TAB PO SCH (08:38)
[2019-09-14] MEDS: Nicotine GUM 2MG FRUIT FLAVOR PO PRN ×6 (04:04→22:43)
[2019-09-14] MEDS: Vitamin THERAPEUTIC TAB PO SCH (08:58)
[2019-09-15] MEDS: Nicotine GUM 2MG FRUIT FLAVOR PO PRN ×5 (06:30→20:41)
[2019-09-15] MEDS: Vitamin THERAPEUTIC TAB PO SCH (08:22)
[2019-09-16] MEDS: Nicotine GUM 2MG FRUIT FLAVOR PO PRN ×6 (01:40→18:56)
[2019-09-16] MEDS: Vitamin THERAPEUTIC TAB PO SCH (12:20)
[2019-09-17] MEDS: Nicotine GUM 2MG FRUIT FLAVOR PO PRN ×5 (00:23→20:52)
[2019-09-17] MEDS: Vitamin THERAPEUTIC TAB PO SCH (09:32)
[2019-09-18] MEDS: Nicotine GUM 2MG FRUIT FLAVOR PO PRN ×5 (02:27→20:34)
[2019-09-18] MEDS: Vitamin THERAPEUTIC TAB PO SCH (08:45)
[2019-09-19] MEDS: Nicotine GUM 2MG FRUIT FLAVOR PO PRN ×3 (03:05→12:38)
[2019-09-19] MEDS: Vitamin THERAPEUTIC TAB PO SCH (08:32)
[2019-09-19 08:33] VITALS: BP 106/63
== END 2019-09-19 13:50 | disposition home or self-care (01) | DRG 753 ==
LOC: ED 22:06 → BSU 09-08 04:46
PROVIDERS: ADMIT Psychiatry & Neurology Psychiatry; ATTEND Psychiatry & Neurology Psychiatry

== ENCOUNTER 2019-09-23 20:42 | Inpatient (IN) ==
[~2019-09-23 20:42] MED LIST changes: -Clindamycin CAP* 150 MG PO ONE; +Haloperidol 5 mg/ml SDV IV/IM 5 MG/ML AMP ONE; +LORazepam 2 mg VIAL 1 ml ONE; -Sulfamethox/Trimethoprim DS 800/160* TAB PO ONE; +diPHENhydraMINE IV 50 MG/ML 1 ml VIAL (BENADRYL) ONE; -oxyCODONE/Acetamin 5/325 MG* TAB PO ONE
[2019-09-23 21:27] LABS: Urine Appearance Turbid; Urine Bilirubin 1+ (Negative); Urine Blood Negative (Negative); Urine Color Amber; Urine Glucose Negative (Negative); Urine Ketones Trace (Negative); Urine Nitrite Negative (Negative); Urine Protein 1+(30 mg/dL) (Negative); Urine Urobilinogen Positive (Negative)
[2019-09-23 21:35] LABS: Urine Bacteria 1+ (Absent); Urine Red Blood Cell 3+(>10/hpf) (Absent); Urine Squamous Epithelial Cell Present (Absent); Urine White Blood Cell 2+(11-20/hpf) (Absent)
[2019-09-23 21:38] LABS: Urine Benzodiazepine Screen None Detected (None Detect); Urine Opiates Screen None Detected (None Detect)
[2019-09-23 21:45] LABS: ABS Basophils 0.1 10^3/ul (0-0.2); ABS Eosinophils 0.2 10^3/ul (0-0.6); ABS Lymphocytes 3.4 10^3/ul (1.0-4.8); ABS Monocytes 0.6 10^3/ul (0-0.8); Eosinophil % 1.6 %; Hematocrit 41 % (35-47); Hemoglobin 14.3 g/dL (12.0-16.0); Lymphocyte % 34.8 %; Mean Corpuscular HGB Conc 35 g/dL (31-36); Mean Corpuscular Hemoglobin 30 pg (27-31); Mean Corpuscular Volume 85 fL (80-97); Mean Platelet Volume 8.7 fL (7.4-10.4); Nucleated Red Blood Cells % 0.1; Platelet Count 240 10^3/uL (150-450); Red Blood Count 4.83 10^6 /uL (3.70-4.87); Red Cell Distribution Width 13 % (10-15); White Blood Count 9.8 10^3/uL (3.5-10.8)
[2019-09-23 22:01] LABS: ALT 17 U/L (7-52); AST 19 U/L (13-39); Acetaminophen < 15 mcg/mL; Albumin 4.9 g/dL (3.2-5.2); Albumin/Globulin Ratio 1.9 (1-3); Alcohol, S < 10 mg/dL (<10); Alkaline Phosphatase 77 U/L (34-104); Anion Gap 10 mmol/L (2-11); Blood Urea Nitrogen 15 mg/dL (6-24); CO2 Carbon Dioxide 24 mmol/L (22-32); Calcium 9.9 mg/dL (8.6-10.3); Chloride 103 mmol/L (101-111); EGFR African American 105.6 (>60); EGFR Non-African American 87.3 (>60); Globulin 2.6 g/dL (2-4); Glucose 106 mg/dL (70-100); Potassium 3.3 mmol/L (3.5-5.0); Salicylate < 2.50 mg/dL (<30); Sodium 137 mmol/L (135-145); Total Protein 7.5 g/dL (6.4-8.9)
[2019-09-23 22:16] LABS: TSH (Thyroid Stimulating Horm) 0.97 mcIU/mL (0.34-5.60)
[2019-09-23] MEDS ORDERED: diPHENhydraMINE IV 50 MG/ML 1 ml VIAL (BENADRYL) IM ONE (22:19)
[2019-09-23] MEDS ORDERED: Haloperidol 5 mg/ml SDV IV/IM 5 MG/ML AMP IM ONE (22:19)
[2019-09-23] MEDS ORDERED: LORazepam 2 mg VIAL 1 ml IM ONE (22:19)
[2019-09-23] MEDS ORDERED: LORazepam 2 mg VIAL 1 ml ONE (22:22)
[2019-09-24] MEDS ORDERED: Al Hydrox/Mg Hydrox/Simet LIQ 30 ML UDC PO PRN (09:51)
[2019-09-24] MEDS ORDERED: LORazepam 1 mg TAB (*) PO PRN (09:54)
[2019-09-24] MEDS: Nicotine GUM 4MG FRUIT FLAVOR PO PRN ×3 (10:37→17:33)
[2019-09-24] MEDS: Nicotine PATCH 21 MG/24 HR PATCH TRANSDERM SCH (14:42)
[2019-09-25] MEDS: Nicotine GUM 4MG FRUIT FLAVOR PO PRN ×6 (04:42→21:59)
[2019-09-25] MEDS: Nicotine PATCH 21 MG/24 HR PATCH TRANSDERM SCH (08:34)
[2019-09-25] MEDS: Vitamin THERAPEUTIC TAB PO SCH (08:34)
[2019-09-26] MEDS: Nicotine GUM 4MG FRUIT FLAVOR PO PRN ×5 (05:17→22:57)
[2019-09-26] MEDS: Nicotine PATCH 21 MG/24 HR PATCH TRANSDERM SCH (08:15)
[2019-09-26] MEDS: Vitamin THERAPEUTIC TAB PO SCH (08:15)
[2019-09-27] MEDS: Nicotine GUM 4MG FRUIT FLAVOR PO PRN ×5 (05:54→20:53)
[2019-09-27] MEDS: Nicotine PATCH 21 MG/24 HR PATCH TRANSDERM SCH (10:18)
[2019-09-27] MEDS: Vitamin THERAPEUTIC TAB PO SCH (10:18)
[2019-09-28] MEDS: Nicotine GUM 4MG FRUIT FLAVOR PO PRN ×6 (03:58→22:13)
[2019-09-28] MEDS: Nicotine PATCH 21 MG/24 HR PATCH TRANSDERM SCH (11:22)
[2019-09-28] MEDS: Vitamin THERAPEUTIC TAB PO SCH (11:22)
[2019-09-28] MEDS: Nystatin TOP POWDER 15 GM BTL TOPICAL SCH (22:13)
[2019-09-29] MEDS: Nicotine GUM 4MG FRUIT FLAVOR PO PRN ×6 (02:57→22:35)
[2019-09-29] MEDS: Nicotine PATCH 21 MG/24 HR PATCH TRANSDERM SCH (10:48)
[2019-09-29] MEDS: Vitamin THERAPEUTIC TAB PO SCH (10:48)
[2019-09-29] MEDS: Nystatin TOP POWDER 15 GM BTL TOPICAL SCH ×2 (10:48→21:47)
[2019-09-30] MEDS: Nicotine GUM 4MG FRUIT FLAVOR PO PRN ×4 (05:03→21:19)
[2019-09-30] MEDS: Nicotine PATCH 21 MG/24 HR PATCH TRANSDERM SCH (09:28)
[2019-09-30] MEDS: Vitamin THERAPEUTIC TAB PO SCH (09:28)
[2019-09-30] MEDS: Nystatin TOP POWDER 15 GM BTL TOPICAL SCH ×2 (09:28→21:06)
[2019-10-01] MEDS: Nicotine GUM 4MG FRUIT FLAVOR PO PRN ×4 (08:47→20:25)
[2019-10-01] MEDS: Nystatin TOP POWDER 15 GM BTL TOPICAL SCH ×2 (09:04→21:55)
[2019-10-01] MEDS: Nicotine PATCH 21 MG/24 HR PATCH TRANSDERM SCH (09:04)
[2019-10-01] MEDS: Vitamin THERAPEUTIC TAB PO SCH (09:04)
[2019-10-01] MEDS ORDERED: Paliperidone SUSTENNA 234 MG/1.5 ML IM ONE (17:00)
[2019-10-02] MEDS: Nicotine GUM 4MG FRUIT FLAVOR PO PRN ×5 (05:13→20:12)
[2019-10-02] MEDS: Nicotine PATCH 21 MG/24 HR PATCH TRANSDERM SCH (08:42)
[2019-10-02] MEDS: Nystatin TOP POWDER 15 GM BTL TOPICAL SCH (08:42)
[2019-10-02] MEDS: Vitamin THERAPEUTIC TAB PO SCH (08:43)
[2019-10-02] MEDS ORDERED: Paliperidone SUSTENNA 234 MG/1.5 ML IM ONE (10:02)
[2019-10-02] MEDS: LORazepam 1 mg TAB (*) PO PRN (10:05)
[2019-10-03] MEDS: Nystatin TOP POWDER 15 GM BTL TOPICAL SCH ×3 (00:09→21:01)
[2019-10-03] MEDS: Nicotine GUM 4MG FRUIT FLAVOR PO PRN ×4 (06:48→20:59)
[2019-10-03] MEDS: Nicotine PATCH 21 MG/24 HR PATCH TRANSDERM SCH (10:04)
[2019-10-03] MEDS: Vitamin THERAPEUTIC TAB PO SCH (10:04)
[2019-10-03] MEDS: LORazepam 1 mg TAB (*) PO PRN ×2 (14:23→22:01)
[2019-10-04] MEDS: Nicotine GUM 4MG FRUIT FLAVOR PO PRN ×5 (02:10→19:24)
[2019-10-04] MEDS: Nystatin TOP POWDER 15 GM BTL TOPICAL SCH ×2 (08:54→21:19)
[2019-10-04] MEDS: Vitamin THERAPEUTIC TAB PO SCH (08:54)
[2019-10-04] MEDS: Nicotine PATCH 21 MG/24 HR PATCH TRANSDERM SCH (08:54)
[2019-10-04] MEDS: LORazepam 1 mg TAB (*) PO PRN (12:51)
[2019-10-05] MEDS: Nicotine GUM 4MG FRUIT FLAVOR PO PRN ×6 (02:08→20:50)
[2019-10-05] MEDS: Nystatin TOP POWDER 15 GM BTL TOPICAL SCH ×2 (08:10→20:59)
[2019-10-05] MEDS: Nicotine PATCH 21 MG/24 HR PATCH TRANSDERM SCH (08:10)
[2019-10-05] MEDS: Vitamin THERAPEUTIC TAB PO SCH (08:11)
[2019-10-05] MEDS ORDERED: Paliperidone SUSTENNA 156 MG/1 ML IM ONE (09:47)
[2019-10-05] MEDS: LORazepam 1 mg TAB (*) PO PRN (13:27)
[2019-10-06] MEDS: Nicotine GUM 4MG FRUIT FLAVOR PO PRN ×4 (03:19→19:06)
[2019-10-06] MEDS: Nystatin TOP POWDER 15 GM BTL TOPICAL SCH ×2 (07:33→20:42)
[2019-10-06] MEDS: Nicotine PATCH 21 MG/24 HR PATCH TRANSDERM SCH (07:33)
[2019-10-06] MEDS: Vitamin THERAPEUTIC TAB PO SCH (07:46)
[2019-10-06] MEDS: LORazepam 1 mg TAB (*) PO PRN ×2 (07:46→16:19)
[2019-10-07] MEDS: Nicotine GUM 4MG FRUIT FLAVOR PO PRN ×6 (03:00→20:48)
[2019-10-07] MEDS: Nystatin TOP POWDER 15 GM BTL TOPICAL SCH ×2 (09:33→20:59)
[2019-10-07] MEDS: Vitamin THERAPEUTIC TAB PO SCH (09:33)
[2019-10-07] MEDS: LORazepam 1 mg TAB (*) PO PRN ×2 (09:41→18:26)
[2019-10-07] MEDS: Nicotine PATCH 21 MG/24 HR PATCH TRANSDERM SCH (09:49)
[2019-10-08] MEDS: Nicotine GUM 4MG FRUIT FLAVOR PO PRN ×3 (03:25→12:21)
[2019-10-08] MEDS: Nicotine PATCH 21 MG/24 HR PATCH TRANSDERM SCH (08:16)
[2019-10-08] MEDS: Vitamin THERAPEUTIC TAB PO SCH (08:18)
[2019-10-08] MEDS: LORazepam 1 mg TAB (*) PO PRN (08:19)
[2019-10-08 09:02] VITALS: BP 101/60
[2019-10-08] MEDS: Nystatin TOP POWDER 15 GM BTL TOPICAL SCH (11:37)
== END 2019-10-08 14:53 | disposition home or self-care (01) | DRG 753 ==
LOC: ED 20:42 → BSU 09-24 10:44
PROVIDERS: ADMIT Psychiatry & Neurology Psychiatry; ATTEND Psychiatry & Neurology Psychiatry

== ENCOUNTER 2020-12-02 14:51 | Inpatient (IN) ==
[2020-12-02 16:17] LABS: Urine Appearance Cloudy; Urine Bilirubin 1+ (Negative); Urine Blood 3+ (Negative); Urine Color Amber; Urine Glucose Negative (Negative); Urine Ketones 2+ (Negative); Urine Nitrite Negative (Negative); Urine Protein 2+(100 mg/dL) (Negative); Urine Specific Gravity 1.032 (1.002-1.030); Urine Urobilinogen Positive (Negative)
[2020-12-02 16:23] LABS: Urine Bacteria 1+ (Absent); Urine Red Blood Cell 2+(6-10/hpf) (Absent); Urine Squamous Epithelial Cell Present (Absent); Urine White Blood Cell Trace(0-5/hpf) (Absent)
[2020-12-02 16:49] LABS: ABS Basophils 0.1 10^3/ul (0-0.2); ABS Eosinophils 0.1 10^3/ul (0-0.6); ABS Lymphocytes 2.8 10^3/ul (1.0-4.8); ABS Monocytes 0.7 10^3/ul (0-0.8); ABS Neutrophils 6.5 10^3/ul (1.5-7.7); Eosinophil % 0.8 %; Hematocrit 41 % (35-47); Lymphocyte % 27.7 %; Mean Corpuscular HGB Conc 35 g/dL (31-36); Mean Corpuscular Hemoglobin 31 pg (27-31); Mean Corpuscular Volume 90 fL (80-97); Mean Platelet Volume 8.6 fL (7.4-10.4); Platelet Count 278 10^3/uL (150-450); Red Blood Count 4.52 10^6 /uL (3.70-4.87); Red Cell Distribution Width 12 % (10-15); White Blood Count 10.2 10^3/uL (3.5-10.8)
[2020-12-02 16:56] LABS: Urine Benzodiazepine Screen None Detected (None Detect); Urine Cannabinoids Screen None Detected (None Detect); Urine Opiates Screen None Detected (None Detect)
[2020-12-02 17:13] LABS: ALT 15 U/L (7-52); AST 17 U/L (13-39); Albumin 4.9 g/dL (3.2-5.2); Albumin/Globulin Ratio 1.5 (1-3); Alkaline Phosphatase 49 U/L (35-149); Anion Gap 13 mmol/L (2-11); Blood Urea Nitrogen 16 mg/dL (6-24); CO2 Carbon Dioxide 23 mmol/L (22-32); Calcium 9.2 mg/dL (8.6-10.3); Chloride 102 mmol/L (101-111); EGFR Non-African American 106.6 (>60); Globulin 3.2 g/dL (2-4); Glucose 77 mg/dL (70-100); Potassium 3.6 mmol/L (3.5-5.0); Sodium 138 mmol/L (135-145); Total Protein 8.1 g/dL (6.4-8.9)
[2020-12-02 17:18] LABS: Acetaminophen < 15 mcg/mL; Alcohol, S < 13 mg/dL (<10); Salicylate < 2.50 mg/dL (<30)
[2020-12-02 18:12] LABS: TSH Ultra Thyroid Stim Horm 0.79 mcIU/mL (0.34-5.60)
[2020-12-02] MEDS ORDERED: OLANzapine 5 mg TAB*ODT PO ONE (20:51)
[2020-12-02 22:38] LABS: Rapid COVID-19 Molecular Undetected (Undetected)
[2020-12-02] MEDS ORDERED: Al Hydrox/Mg Hydrox/Simet LIQ 30 ML UDC PO PRN (22:51)
[2020-12-03] MEDS: Nicotine GUM 2MG FRUIT FLAVOR PO PRN ×2 (08:16→15:06)
[2020-12-03] MEDS: Vitamin THERAPEUTIC TAB PO SCH (09:22)
[2020-12-03] MEDS: Nicotine PATCH 14 MG/24 HR PATCH TRANSDERM SCH ×2 (09:22→10:11)
[2020-12-03] MEDS: PTO:Sofosbuvir/Velpatasvir 400/100(NF) TAB (Epclusa) PO SCH (15:53)
[2020-12-04] MEDS: Nicotine GUM 2MG FRUIT FLAVOR PO PRN ×2 (08:04→12:25)
[2020-12-04] MEDS: Nicotine PATCH 14 MG/24 HR PATCH TRANSDERM SCH (08:04)
[2020-12-04] MEDS: Vitamin THERAPEUTIC TAB PO SCH (10:01)
[2020-12-04] MEDS: PTO:Sofosbuvir/Velpatasvir 400/100(NF) TAB (Epclusa) PO SCH (11:35)
[2020-12-04] MEDS: Nicotine Lozenge mini 2 MG LOZNG.MINI MT PRN ×2 (12:24→18:14)
[2020-12-05] MEDS: Nicotine GUM 2MG FRUIT FLAVOR PO PRN ×2 (01:20→07:24)
[2020-12-05] MEDS: PTO:Sofosbuvir/Velpatasvir 400/100(NF) TAB (Epclusa) PO SCH (07:24)
[2020-12-05] MEDS: Nicotine PATCH 14 MG/24 HR PATCH TRANSDERM SCH (07:24)
[2020-12-05] MEDS: Vitamin THERAPEUTIC TAB PO SCH (07:38)
[2020-12-05] MEDS: Nicotine Lozenge mini 2 MG LOZNG.MINI MT PRN ×3 (10:03→14:31)
[2020-12-05] MEDS: Nicotine Lozenge mini 4 MG LOZNG.MINI MT PRN ×3 (16:35→20:05)
[2020-12-06] MEDS: Nicotine Lozenge mini 4 MG LOZNG.MINI MT PRN ×7 (04:29→18:50)
[2020-12-06] MEDS: Nicotine PATCH 14 MG/24 HR PATCH TRANSDERM SCH (09:49)
[2020-12-06] MEDS: PTO:Sofosbuvir/Velpatasvir 400/100(NF) TAB (Epclusa) PO SCH (09:50)
[2020-12-06] MEDS: Vitamin THERAPEUTIC TAB PO SCH (09:51)
[2020-12-06] MEDS: Nicotine GUM 4MG FRUIT FLAVOR PO PRN ×4 (10:19→17:51)
[2020-12-06] MEDS ORDERED: Nicotine PATCH 21 MG/24 HR PATCH ONE (10:56)
[2020-12-06] MEDS: OLANzapine 5 mg TAB*ODT PO PRN (13:56)
[2020-12-07] MEDS: Nicotine Lozenge mini 4 MG LOZNG.MINI MT PRN ×6 (03:49→17:33)
[2020-12-07] MEDS: Nicotine GUM 4MG FRUIT FLAVOR PO PRN ×2 (06:15→13:46)
[2020-12-07] MEDS: Vitamin THERAPEUTIC TAB PO SCH (07:16)
[2020-12-07] MEDS: PTO:Sofosbuvir/Velpatasvir 400/100(NF) TAB (Epclusa) PO SCH (07:17)
[2020-12-07] MEDS: Nicotine PATCH 21 MG/24 HR PATCH TRANSDERM SCH (07:17)
[2020-12-07] MEDS: OLANzapine 5 mg TAB*ODT PO PRN ×2 (09:31→15:32)
[2020-12-08] MEDS: Nicotine Lozenge mini 4 MG LOZNG.MINI MT PRN ×7 (06:03→19:30)
[2020-12-08] MEDS: Nicotine PATCH 21 MG/24 HR PATCH TRANSDERM SCH (07:13)
[2020-12-08] MEDS: PTO:Sofosbuvir/Velpatasvir 400/100(NF) TAB (Epclusa) PO SCH (08:12)
[2020-12-08] MEDS: Vitamin THERAPEUTIC TAB PO SCH (08:12)
[2020-12-08] MEDS: Nicotine GUM 4MG FRUIT FLAVOR PO PRN ×4 (09:25→16:35)
[2020-12-08] MEDS: OLANzapine 5 mg TAB*ODT PO PRN ×2 (10:25→17:39)
[2020-12-09] MEDS: Nicotine Lozenge mini 4 MG LOZNG.MINI MT PRN ×6 (06:26→18:19)
[2020-12-09] MEDS: Nicotine PATCH 21 MG/24 HR PATCH TRANSDERM SCH (07:36)
[2020-12-09] MEDS: OLANzapine 5 mg TAB*ODT PO PRN ×2 (07:36→14:34)
[2020-12-09] MEDS: Vitamin THERAPEUTIC TAB PO SCH (07:36)
[2020-12-09] MEDS: PTO:Sofosbuvir/Velpatasvir 400/100(NF) TAB (Epclusa) PO SCH (07:37)
[2020-12-09] MEDS: Nicotine GUM 4MG FRUIT FLAVOR PO PRN ×3 (08:12→15:38)
[2020-12-10] MEDS: Nicotine Lozenge mini 4 MG LOZNG.MINI MT PRN ×6 (06:33→18:21)
[2020-12-10 08:06] LABS: HDL Cholesterol 27.5 mg/dL
[2020-12-10] MEDS: PTO:Sofosbuvir/Velpatasvir 400/100(NF) TAB (Epclusa) PO SCH (08:50)
[2020-12-10] MEDS: Vitamin THERAPEUTIC TAB PO SCH (08:50)
[2020-12-10] MEDS: Nicotine PATCH 21 MG/24 HR PATCH TRANSDERM SCH (08:51)
[2020-12-10] MEDS: Nicotine GUM 4MG FRUIT FLAVOR PO PRN ×2 (09:41→14:46)
[2020-12-10] MEDS: OLANzapine 5 mg TAB*ODT PO PRN (10:49)
[2020-12-11] MEDS: Nicotine Lozenge mini 4 MG LOZNG.MINI MT PRN ×5 (06:36→15:37)
[2020-12-11] MEDS: Vitamin THERAPEUTIC TAB PO SCH (08:12)
[2020-12-11] MEDS: PTO:Sofosbuvir/Velpatasvir 400/100(NF) TAB (Epclusa) PO SCH (08:13)
[2020-12-11] MEDS: Nicotine PATCH 21 MG/24 HR PATCH TRANSDERM SCH (08:13)
[2020-12-11] MEDS: Nicotine GUM 4MG FRUIT FLAVOR PO PRN ×2 (12:12→15:22)
[2020-12-12] MEDS: Nicotine Lozenge mini 4 MG LOZNG.MINI MT PRN ×3 (06:28→11:17)
[2020-12-12] MEDS: Vitamin THERAPEUTIC TAB PO SCH (08:19)
[2020-12-12] MEDS: Nicotine PATCH 21 MG/24 HR PATCH TRANSDERM SCH (08:19)
[2020-12-12] MEDS: PTO:Sofosbuvir/Velpatasvir 400/100(NF) TAB (Epclusa) PO SCH (08:20)
[2020-12-12] MEDS: Nicotine GUM 4MG FRUIT FLAVOR PO PRN ×2 (08:26→10:38)
[2020-12-12 10:28] VITALS: BP 101/59
== END 2020-12-12 11:29 | disposition home or self-care (01) | DRG 753 ==
LOC: ED 14:51 → BSU 21:31
PROVIDERS: ADMIT Psychiatry & Neurology Psychiatry; ATTEND Psychiatry & Neurology Psychiatry

== ENCOUNTER 2020-12-12 19:35 | Inpatient (IN) ==
[2020-12-12] MEDS ORDERED: Charcoal ACTIVATED 25 GM/120 ML BTL PO ONE (19:45)
[2020-12-12 20:09] LABS: ABS Basophils 0.1 10^3/ul (0-0.2); ABS Eosinophils 0.1 10^3/ul (0-0.6); ABS Lymphocytes 1.9 10^3/ul (1.0-4.8); ABS Monocytes 0.5 10^3/ul (0-0.8); ABS Neutrophils 6.7 10^3/ul (1.5-7.7); Eosinophil % 1.4 %; Hematocrit 36 % (35-47); Hemoglobin 12.5 g/dL (12.0-16.0); Mean Corpuscular HGB Conc 35 g/dL (31-36); Mean Corpuscular Hemoglobin 32 pg (27-31); Mean Corpuscular Volume 90 fL (80-97); Mean Platelet Volume 9.9 fL (7.4-10.4); Platelet Count 163 10^3/uL (150-450); Red Blood Count 3.96 10^6 /uL (3.70-4.87); Red Cell Distribution Width 12 % (10-15); White Blood Count 9.3 10^3/uL (3.5-10.8)
[2020-12-12 20:26] LABS: ALT 33 U/L (7-52); AST 24 U/L (13-39); Albumin 4.1 g/dL (3.2-5.2); Albumin/Globulin Ratio 1.9 (1-3); Alkaline Phosphatase 34 U/L (35-149); Anion Gap 11 mmol/L (2-11); Blood Urea Nitrogen 10 mg/dL (6-24); CO2 Carbon Dioxide 20 mmol/L (22-32); Calcium 8.4 mg/dL (8.6-10.3); Chloride 107 mmol/L (101-111); EGFR African American 124.7 (>60); Globulin 2.2 g/dL (2-4); Glucose 107 mg/dL (70-100); Potassium 3.5 mmol/L (3.5-5.0); Sodium 138 mmol/L (135-145); Total Protein 6.3 g/dL (6.4-8.9)
[2020-12-12] MEDS ORDERED: Magnesium Sulfate 2 gm BAG 2 GM/50 ML BAG IVPB ONE (20:26)
[2020-12-12 20:32] LABS: HCG Pregnancy < 0.60 mIU/mL
[2020-12-12] MEDS ORDERED: NS 0.9% 1000 ml BAG 1,000 ML IV ONE (20:43)
[2020-12-12 20:46] LABS: Alcohol, S < 13 mg/dL (<13); Salicylate < 2.50 mg/dL (<30)
[2020-12-12 20:52] LABS: Acetaminophen < 15 mcg/mL
[2020-12-12 20:59] LABS: TSH Ultra Thyroid Stim Horm 2.12 mcIU/mL (0.34-5.60)
[2020-12-12 21:50] LABS: Creatine Kinase 88 U/L (10-223)
[2020-12-12 22:36] LABS: Urine Appearance Cloudy; Urine Bilirubin Negative (Negative); Urine Blood Negative (Negative); Urine Color Yellow; Urine Glucose Negative (Negative); Urine Ketones Trace (Negative); Urine Nitrite Negative (Negative); Urine Protein Negative (Negative); Urine Specific Gravity 1.005 (1.002-1.030); Urine Urobilinogen Negative (Negative)
[2020-12-12 22:40] LABS: Urine Bacteria Absent (Absent); Urine Red Blood Cell Absent (Absent); Urine Squamous Epithelial Cell Present (Absent); Urine White Blood Cell Trace(0-5/hpf) (Absent)
[2020-12-12 22:52] LABS: Urine Benzodiazepine Screen None Detected (None Detect); Urine Cannabinoids Screen None Detected (None Detect); Urine Opiates Screen None Detected (None Detect)
[2020-12-13 04:21] LABS: Rapid COVID-19 Molecular Undetected (Undetected)
[2020-12-13] MEDS: Nicotine Lozenge mini 4 MG LOZNG.MINI MT PRN ×3 (09:12→14:18)
[2020-12-13] MEDS: Vitamin THERAPEUTIC TAB PO SCH (11:40)
[2020-12-13] MEDS: VELPATASVIR PO SCH (13:10)
[2020-12-13] MEDS: SOFOSBUVIR PO SCH (13:10)
[2020-12-14] MEDS: Nicotine Lozenge mini 4 MG LOZNG.MINI MT PRN ×7 (06:25→21:24)
[2020-12-14] MEDS: Nicotine GUM 4MG FRUIT FLAVOR PO PRN ×5 (07:17→16:40)
[2020-12-14] MEDS: Nicotine PATCH 21 MG/24 HR PATCH TRANSDERM SCH (07:42)
[2020-12-14] MEDS: Vitamin THERAPEUTIC TAB PO SCH (07:43)
[2020-12-14] MEDS: VELPATASVIR PO SCH (07:45)
[2020-12-14] MEDS: SOFOSBUVIR PO SCH (07:45)
[2020-12-15] MEDS: Nicotine Lozenge mini 4 MG LOZNG.MINI MT PRN ×8 (06:07→21:06)
[2020-12-15] MEDS: Nicotine PATCH 21 MG/24 HR PATCH TRANSDERM SCH (07:29)
[2020-12-15] MEDS: Nicotine GUM 4MG FRUIT FLAVOR PO PRN ×4 (07:54→15:50)
[2020-12-15] MEDS: Vitamin THERAPEUTIC TAB PO SCH (08:13)
[2020-12-15] MEDS: VELPATASVIR PO SCH (08:14)
[2020-12-15] MEDS: SOFOSBUVIR PO SCH (08:14)
[2020-12-16] MEDS: Nicotine Lozenge mini 4 MG LOZNG.MINI MT PRN ×8 (05:58→20:49)
[2020-12-16] MEDS: Nicotine PATCH 21 MG/24 HR PATCH TRANSDERM SCH (07:06)
[2020-12-16] MEDS: Vitamin THERAPEUTIC TAB PO SCH (08:47)
[2020-12-16] MEDS: VELPATASVIR PO SCH (08:48)
[2020-12-16] MEDS: SOFOSBUVIR PO SCH (08:48)
[2020-12-16] MEDS: Nicotine GUM 4MG FRUIT FLAVOR PO PRN ×2 (08:50→12:55)
[2020-12-16 09:09] LABS: HDL Cholesterol 30.1 mg/dL
[2020-12-17] MEDS: Nicotine Lozenge mini 4 MG LOZNG.MINI MT PRN ×6 (06:14→19:44)
[2020-12-17] MEDS: Vitamin THERAPEUTIC TAB PO SCH (08:54)
[2020-12-17] MEDS: Nicotine PATCH 21 MG/24 HR PATCH TRANSDERM SCH (08:54)
[2020-12-17] MEDS: SOFOSBUVIR PO SCH (08:55)
[2020-12-17] MEDS: VELPATASVIR PO SCH (08:55)
[2020-12-17] MEDS: Nicotine GUM 4MG FRUIT FLAVOR PO PRN ×2 (14:53→16:37)
[2020-12-18] MEDS: Nicotine Lozenge mini 4 MG LOZNG.MINI MT PRN ×6 (07:17→21:02)
[2020-12-18] MEDS: Nicotine PATCH 21 MG/24 HR PATCH TRANSDERM SCH (07:32)
[2020-12-18] MEDS: VELPATASVIR PO SCH (08:32)
[2020-12-18] MEDS: Vitamin THERAPEUTIC TAB PO SCH (08:32)
[2020-12-18] MEDS: SOFOSBUVIR PO SCH (08:32)
[2020-12-18] MEDS: Nicotine GUM 4MG FRUIT FLAVOR PO PRN (08:44)
[2020-12-19] MEDS: Nicotine Lozenge mini 4 MG LOZNG.MINI MT PRN ×6 (07:15→19:07)
[2020-12-19] MEDS: SOFOSBUVIR PO SCH (08:49)
[2020-12-19] MEDS: VELPATASVIR PO SCH (08:49)
[2020-12-19] MEDS: Vitamin THERAPEUTIC TAB PO SCH (08:49)
[2020-12-19] MEDS: Nicotine PATCH 21 MG/24 HR PATCH TRANSDERM SCH (08:50)
[2020-12-19] MEDS ORDERED: COVID-19 VACCINE, AD26(JANSSEN)/PF 0.5 ML IM ONE (11:20)
[2020-12-20] MEDS: Vitamin THERAPEUTIC TAB PO SCH (07:19)
[2020-12-20] MEDS: SOFOSBUVIR PO SCH (07:20)
[2020-12-20] MEDS: Nicotine Lozenge mini 4 MG LOZNG.MINI MT PRN ×5 (07:20→17:48)
[2020-12-20] MEDS: Nicotine PATCH 21 MG/24 HR PATCH TRANSDERM SCH (07:20)
[2020-12-20] MEDS: VELPATASVIR PO SCH (07:20)
[2020-12-21] MEDS: Vitamin THERAPEUTIC TAB PO SCH (07:08)
[2020-12-21] MEDS: VELPATASVIR PO SCH (07:09)
[2020-12-21] MEDS: SOFOSBUVIR PO SCH (07:09)
[2020-12-21] MEDS: Nicotine Lozenge mini 4 MG LOZNG.MINI MT PRN ×4 (07:10→14:35)
[2020-12-21] MEDS: Nicotine PATCH 21 MG/24 HR PATCH TRANSDERM SCH (09:38)
[2020-12-22] MEDS: Nicotine Lozenge mini 4 MG LOZNG.MINI MT PRN ×5 (07:04→17:10)
[2020-12-22] MEDS: Vitamin THERAPEUTIC TAB PO SCH (07:58)
[2020-12-22] MEDS: VELPATASVIR PO SCH (07:58)
[2020-12-22] MEDS: SOFOSBUVIR PO SCH (07:58)
[2020-12-22] MEDS: Nicotine PATCH 21 MG/24 HR PATCH TRANSDERM SCH (07:59)
[2020-12-23] MEDS: Nicotine Lozenge mini 4 MG LOZNG.MINI MT PRN ×7 (05:52→18:47)
[2020-12-23] MEDS: Vitamin THERAPEUTIC TAB PO SCH (08:09)
[2020-12-23] MEDS: SOFOSBUVIR PO SCH (08:11)
[2020-12-23] MEDS: VELPATASVIR PO SCH (08:11)
[2020-12-23] MEDS: Nicotine PATCH 21 MG/24 HR PATCH TRANSDERM SCH (13:33)
[2020-12-24] MEDS: Nicotine Lozenge mini 4 MG LOZNG.MINI MT PRN ×5 (06:39→17:43)
[2020-12-24] MEDS: Nicotine PATCH 21 MG/24 HR PATCH TRANSDERM SCH (08:04)
[2020-12-24] MEDS: Vitamin THERAPEUTIC TAB PO SCH (08:04)
[2020-12-24] MEDS: VELPATASVIR PO SCH (08:07)
[2020-12-24] MEDS: SOFOSBUVIR PO SCH (08:07)
[2020-12-25] MEDS: Nicotine Lozenge mini 4 MG LOZNG.MINI MT PRN ×6 (06:34→18:21)
[2020-12-25] MEDS: SOFOSBUVIR PO SCH (07:42)
[2020-12-25] MEDS: VELPATASVIR PO SCH (07:42)
[2020-12-25] MEDS: Vitamin THERAPEUTIC TAB PO SCH ×2 (07:43→07:56)
[2020-12-25] MEDS: Nicotine PATCH 21 MG/24 HR PATCH TRANSDERM SCH ×2 (07:44→08:17)
[2020-12-26] MEDS: Nicotine Lozenge mini 4 MG LOZNG.MINI MT PRN ×5 (07:24→18:19)
[2020-12-26] MEDS: Vitamin THERAPEUTIC TAB PO SCH (08:34)
[2020-12-26] MEDS: Nicotine PATCH 21 MG/24 HR PATCH TRANSDERM SCH (08:36)
[2020-12-26] MEDS: VELPATASVIR PO SCH ×2 (08:39→14:59)
[2020-12-26] MEDS: SOFOSBUVIR PO SCH ×2 (08:39→14:59)
[2020-12-27] MEDS: Nicotine Lozenge mini 4 MG LOZNG.MINI MT PRN ×4 (08:16→18:06)
[2020-12-27] MEDS: Nicotine PATCH 21 MG/24 HR PATCH TRANSDERM SCH (09:13)
[2020-12-27] MEDS: Nicotine GUM 4MG FRUIT FLAVOR PO PRN (09:27)
[2020-12-27] MEDS: VELPATASVIR PO SCH (09:28)
[2020-12-27] MEDS: Vitamin THERAPEUTIC TAB PO SCH (09:28)
[2020-12-27] MEDS: SOFOSBUVIR PO SCH (09:28)
[2020-12-28] MEDS: Nicotine Lozenge mini 4 MG LOZNG.MINI MT PRN ×4 (06:47→17:15)
[2020-12-28] MEDS: Nicotine PATCH 21 MG/24 HR PATCH TRANSDERM SCH (08:37)
[2020-12-28] MEDS: VELPATASVIR PO SCH ×2 (08:38→09:30)
[2020-12-28] MEDS: SOFOSBUVIR PO SCH ×2 (08:38→09:30)
[2020-12-28] MEDS: Vitamin THERAPEUTIC TAB PO SCH (08:38)
[2020-12-29] MEDS: Nicotine Lozenge mini 4 MG LOZNG.MINI MT PRN ×3 (05:53→14:56)
[2020-12-29] MEDS: VELPATASVIR PO SCH (08:27)
[2020-12-29] MEDS: SOFOSBUVIR PO SCH (08:27)
[2020-12-29] MEDS: Nicotine PATCH 21 MG/24 HR PATCH TRANSDERM SCH (08:30)
[2020-12-29] MEDS: Vitamin THERAPEUTIC TAB PO SCH (08:30)
[2020-12-30] MEDS: Vitamin THERAPEUTIC TAB PO SCH (07:58)
[2020-12-30] MEDS: SOFOSBUVIR PO SCH (07:59)
[2020-12-30] MEDS: Nicotine Lozenge mini 4 MG LOZNG.MINI MT PRN ×5 (07:59→20:36)
[2020-12-30] MEDS: Nicotine PATCH 21 MG/24 HR PATCH TRANSDERM SCH (07:59)
[2020-12-30] MEDS: VELPATASVIR PO SCH (07:59)
[2020-12-31] MEDS: Nicotine Lozenge mini 4 MG LOZNG.MINI MT PRN ×4 (07:20→20:33)
[2020-12-31] MEDS: Nicotine PATCH 21 MG/24 HR PATCH TRANSDERM SCH (08:30)
[2020-12-31] MEDS: Vitamin THERAPEUTIC TAB PO SCH (08:30)
[2020-12-31] MEDS: SOFOSBUVIR PO SCH (08:33)
[2020-12-31] MEDS: VELPATASVIR PO SCH (08:33)
[2021-01-01] MEDS: Nicotine PATCH 21 MG/24 HR PATCH TRANSDERM SCH (08:44)
[2021-01-01] MEDS: Vitamin THERAPEUTIC TAB PO SCH (08:44)
[2021-01-01] MEDS: SOFOSBUVIR PO SCH (08:44)
[2021-01-01] MEDS: VELPATASVIR PO SCH (08:44)
[2021-01-01] MEDS: Nicotine Lozenge mini 4 MG LOZNG.MINI MT PRN ×5 (08:47→21:18)
[2021-01-01] MEDS: Al Hydrox/Mg Hydrox/Simet LIQ 30 ML UDC PO PRN (11:43)
[2021-01-01 13:10] LABS: ALT 11 U/L (7-52); AST 14 U/L (13-39); Albumin 4.4 g/dL (3.2-5.2); Albumin/Globulin Ratio 1.6 (1-3); Alkaline Phosphatase 41 U/L (35-149); Anion Gap 7 mmol/L (2-11); Blood Urea Nitrogen 13 mg/dL (6-24); CO2 Carbon Dioxide 26 mmol/L (22-32); Calcium 9.2 mg/dL (8.6-10.3); Chloride 108 mmol/L (101-111); EGFR African American 120.6 (>60); EGFR Non-African American 99.6 (>60); Globulin 2.7 g/dL (2-4); Glucose 104 mg/dL (70-100); Sodium 141 mmol/L (135-145); Total Protein 7.1 g/dL (6.4-8.9)
[2021-01-02] MEDS: VELPATASVIR PO SCH (08:49)
[2021-01-02] MEDS: SOFOSBUVIR PO SCH (08:49)
[2021-01-02] MEDS: Vitamin THERAPEUTIC TAB PO SCH (08:51)
[2021-01-02] MEDS: Nicotine GUM 4MG FRUIT FLAVOR PO PRN (08:52)
[2021-01-02] MEDS: Nicotine Lozenge mini 4 MG LOZNG.MINI MT PRN ×2 (08:53→15:13)
[2021-01-02] MEDS: Nicotine PATCH 21 MG/24 HR PATCH TRANSDERM SCH (08:54)
[2021-01-02 12:20] LABS: HCG Pregnancy < 0.60 mIU/mL
[2021-01-03] MEDS: Nicotine PATCH 21 MG/24 HR PATCH TRANSDERM SCH (09:13)
[2021-01-03] MEDS: Vitamin THERAPEUTIC TAB PO SCH (09:13)
[2021-01-03] MEDS: VELPATASVIR PO SCH (09:25)
[2021-01-03] MEDS: SOFOSBUVIR PO SCH (09:25)
[2021-01-03] MEDS: Nicotine Lozenge mini 4 MG LOZNG.MINI MT PRN ×2 (12:27→17:59)
[2021-01-04] MEDS: SOFOSBUVIR PO SCH (10:47)
[2021-01-04] MEDS: Nicotine PATCH 21 MG/24 HR PATCH TRANSDERM SCH (10:47)
[2021-01-04] MEDS: VELPATASVIR PO SCH (10:47)
[2021-01-04] MEDS: Vitamin THERAPEUTIC TAB PO SCH (10:47)
[2021-01-04] MEDS: Nicotine Lozenge mini 4 MG LOZNG.MINI MT PRN ×3 (13:45→18:18)
[2021-01-05] MEDS: Nicotine PATCH 21 MG/24 HR PATCH TRANSDERM SCH (07:47)
[2021-01-05] MEDS: Vitamin THERAPEUTIC TAB PO SCH (07:48)
[2021-01-05] MEDS: SOFOSBUVIR PO SCH (07:48)
[2021-01-05] MEDS: VELPATASVIR PO SCH (07:48)
[2021-01-05] MEDS: Nicotine Lozenge mini 4 MG LOZNG.MINI MT PRN (07:51)
[2021-01-06] MEDS: Nicotine PATCH 21 MG/24 HR PATCH TRANSDERM SCH (08:09)
[2021-01-06] MEDS: Vitamin THERAPEUTIC TAB PO SCH (08:10)
[2021-01-06] MEDS: VELPATASVIR PO SCH (08:10)
[2021-01-06] MEDS: SOFOSBUVIR PO SCH (08:10)
[2021-01-06] MEDS: Nicotine Lozenge mini 4 MG LOZNG.MINI MT PRN ×2 (08:22→10:32)
[2021-01-07] MEDS: Vitamin THERAPEUTIC TAB PO SCH (07:53)
[2021-01-07] MEDS: VELPATASVIR PO SCH (07:54)
[2021-01-07] MEDS: SOFOSBUVIR PO SCH (07:54)
[2021-01-07] MEDS: Nicotine PATCH 21 MG/24 HR PATCH TRANSDERM SCH (07:54)
[2021-01-07] MEDS: Nicotine Lozenge mini 4 MG LOZNG.MINI MT PRN ×4 (11:39→18:17)
[2021-01-07] MEDS: Nicotine GUM 4MG FRUIT FLAVOR PO PRN (12:26)
[2021-01-08] MEDS: Vitamin THERAPEUTIC TAB PO SCH (07:33)
[2021-01-08] MEDS: Nicotine PATCH 21 MG/24 HR PATCH TRANSDERM SCH ×2 (07:36→09:01)
[2021-01-08] MEDS: SOFOSBUVIR PO SCH (07:38)
[2021-01-08] MEDS: VELPATASVIR PO SCH (07:38)
[2021-01-08] MEDS: Nicotine Lozenge mini 4 MG LOZNG.MINI MT PRN ×4 (08:33→19:34)
[2021-01-08] MEDS: Nicotine GUM 4MG FRUIT FLAVOR PO PRN (09:00)
[2021-01-09] MEDS: Nicotine Lozenge mini 4 MG LOZNG.MINI MT PRN ×6 (07:30→20:39)
[2021-01-09] MEDS: Vitamin THERAPEUTIC TAB PO SCH (07:53)
[2021-01-09] MEDS: VELPATASVIR PO SCH (07:57)
[2021-01-09] MEDS: SOFOSBUVIR PO SCH (07:57)
[2021-01-09] MEDS: Nicotine PATCH 21 MG/24 HR PATCH TRANSDERM SCH (07:58)
[2021-01-10] MEDS: VELPATASVIR PO SCH (08:17)
[2021-01-10] MEDS: SOFOSBUVIR PO SCH (08:17)
[2021-01-10] MEDS: Vitamin THERAPEUTIC TAB PO SCH (08:18)
[2021-01-10] MEDS: Nicotine PATCH 21 MG/24 HR PATCH TRANSDERM SCH (08:18)
[2021-01-10] MEDS: Al Hydrox/Mg Hydrox/Simet LIQ 30 ML UDC PO PRN (08:53)
[2021-01-11] MEDS: Vitamin THERAPEUTIC TAB PO SCH (08:21)
[2021-01-11] MEDS: VELPATASVIR PO SCH (08:22)
[2021-01-11] MEDS: SOFOSBUVIR PO SCH (08:22)
[2021-01-11] MEDS: Nicotine PATCH 21 MG/24 HR PATCH TRANSDERM SCH (08:24)
[2021-01-11] MEDS: Nicotine Lozenge mini 4 MG LOZNG.MINI MT PRN ×3 (08:33→17:18)
[2021-01-12] MEDS: Vitamin THERAPEUTIC TAB PO SCH (08:02)
[2021-01-12] MEDS: VELPATASVIR PO SCH (08:02)
[2021-01-12] MEDS: SOFOSBUVIR PO SCH (08:02)
[2021-01-12] MEDS: Nicotine PATCH 21 MG/24 HR PATCH TRANSDERM SCH (08:05)
[2021-01-12] MEDS: Nicotine Lozenge mini 4 MG LOZNG.MINI MT PRN ×4 (11:16→17:30)
[2021-01-12] MEDS: Nicotine GUM 4MG FRUIT FLAVOR PO PRN (16:52)
[2021-01-13] MEDS: VELPATASVIR PO SCH (07:46)
[2021-01-13] MEDS: Nicotine PATCH 21 MG/24 HR PATCH TRANSDERM SCH (07:46)
[2021-01-13] MEDS: SOFOSBUVIR PO SCH (07:46)
[2021-01-13] MEDS: Vitamin THERAPEUTIC TAB PO SCH (07:46)
[2021-01-13] MEDS: Nicotine Lozenge mini 4 MG LOZNG.MINI MT PRN ×2 (08:14→10:47)
[2021-01-13] MEDS: Nicotine Lozenge mini 2 MG LOZNG.MINI MT PRN ×4 (12:17→18:34)
[2021-01-14] MEDS: Nicotine PATCH 21 MG/24 HR PATCH TRANSDERM SCH (08:15)
[2021-01-14] MEDS: Vitamin THERAPEUTIC TAB PO SCH (08:28)
[2021-01-14] MEDS: SOFOSBUVIR PO SCH (08:28)
[2021-01-14] MEDS: VELPATASVIR PO SCH (08:28)
[2021-01-14] MEDS: Nicotine Lozenge mini 2 MG LOZNG.MINI MT PRN ×4 (10:48→18:01)
[2021-01-15] MEDS: Vitamin THERAPEUTIC TAB PO SCH (08:12)
[2021-01-15] MEDS: Nicotine PATCH 21 MG/24 HR PATCH TRANSDERM SCH (09:08)
[2021-01-15] MEDS: VELPATASVIR PO SCH (09:26)
[2021-01-15] MEDS: SOFOSBUVIR PO SCH (09:26)
[2021-01-15] MEDS: Nicotine Lozenge mini 2 MG LOZNG.MINI MT PRN ×5 (10:04→21:19)
[2021-01-15 12:50] LABS: Urine Appearance Clear; Urine Bilirubin Negative (Negative); Urine Blood Negative (Negative); Urine Color Colorless; Urine Glucose Negative (Negative); Urine Ketones Negative (Negative); Urine Nitrite Negative (Negative); Urine Protein Negative (Negative); Urine Specific Gravity 1.001 (1.002-1.030); Urine Urobilinogen Negative (Negative)
[2021-01-15] MEDS ORDERED: PAIN RELIEVING RUB (MENTHOL/SALICYLATE) 1 APPLIC TUBE TOPICAL PRN (13:43)
[2021-01-15 14:32] LABS: Albumin 4.6 g/dL (3.2-5.2); Albumin/Globulin Ratio 1.8 (1-3); Calcium 9.5 mg/dL (8.6-10.3); EGFR African American 122.6 (>60); EGFR Non-African American 101.3 (>60); Globulin 2.5 g/dL (2-4); Total Bilirubin 0.2 mg/dL (0.2-1.0); Total Protein 7.1 g/dL (6.4-8.9)
[2021-01-15] MEDS: Nicotine GUM 2MG FRUIT FLAVOR PO PRN (14:46)
[2021-01-16] MEDS: Vitamin THERAPEUTIC TAB PO SCH (07:50)
[2021-01-16] MEDS: VELPATASVIR PO SCH (07:50)
[2021-01-16] MEDS: SOFOSBUVIR PO SCH (07:50)
[2021-01-16] MEDS: Nicotine PATCH 21 MG/24 HR PATCH TRANSDERM SCH (07:51)
[2021-01-16] MEDS: Nicotine Lozenge mini 2 MG LOZNG.MINI MT PRN ×6 (08:56→19:39)
[2021-01-16] MEDS: Nicotine GUM 2MG FRUIT FLAVOR PO PRN (13:46)
[2021-01-17] MEDS: VELPATASVIR PO SCH (08:11)
[2021-01-17] MEDS: Vitamin THERAPEUTIC TAB PO SCH (08:11)
[2021-01-17] MEDS: SOFOSBUVIR PO SCH (08:11)
[2021-01-17] MEDS: Nicotine PATCH 21 MG/24 HR PATCH TRANSDERM SCH (08:13)
[2021-01-17] MEDS: Nicotine Lozenge mini 2 MG LOZNG.MINI MT PRN ×2 (09:19→19:33)
[2021-01-18] MEDS: VELPATASVIR PO SCH (08:08)
[2021-01-18] MEDS: SOFOSBUVIR PO SCH (08:08)
[2021-01-18] MEDS: Vitamin THERAPEUTIC TAB PO SCH (08:08)
[2021-01-18] MEDS: Nicotine PATCH 21 MG/24 HR PATCH TRANSDERM SCH (08:09)
[2021-01-18] MEDS: Nicotine Lozenge mini 2 MG LOZNG.MINI MT PRN ×5 (09:15→20:16)
[2021-01-19] MEDS: Vitamin THERAPEUTIC TAB PO SCH (08:00)
[2021-01-19] MEDS: Nicotine PATCH 21 MG/24 HR PATCH TRANSDERM SCH (08:02)
[2021-01-19] MEDS: VELPATASVIR PO SCH (08:07)
[2021-01-19] MEDS: SOFOSBUVIR PO SCH (08:07)
[2021-01-19] MEDS: Nicotine Lozenge mini 2 MG LOZNG.MINI MT PRN ×6 (08:09→20:05)
[2021-01-20] MEDS: SOFOSBUVIR PO SCH (08:48)
[2021-01-20] MEDS: VELPATASVIR PO SCH (08:48)
[2021-01-20] MEDS: Vitamin THERAPEUTIC TAB PO SCH (08:49)
[2021-01-20] MEDS: Nicotine PATCH 21 MG/24 HR PATCH TRANSDERM SCH (08:50)
[2021-01-20] MEDS: Nicotine Lozenge mini 2 MG LOZNG.MINI MT PRN ×6 (08:51→20:33)
[2021-01-21] MEDS: VELPATASVIR PO SCH (08:36)
[2021-01-21] MEDS: SOFOSBUVIR PO SCH (08:36)
[2021-01-21] MEDS: Nicotine PATCH 14 MG/24 HR PATCH TRANSDERM SCH (08:36)
[2021-01-21] MEDS: Nicotine Lozenge mini 2 MG LOZNG.MINI MT PRN ×6 (08:37→20:48)
[2021-01-21] MEDS: Vitamin THERAPEUTIC TAB PO SCH (08:37)
[2021-01-22] MEDS: VELPATASVIR PO SCH (08:40)
[2021-01-22] MEDS: SOFOSBUVIR PO SCH (08:40)
[2021-01-22] MEDS: Nicotine PATCH 14 MG/24 HR PATCH TRANSDERM SCH (08:41)
[2021-01-22] MEDS: Nicotine Lozenge mini 2 MG LOZNG.MINI MT PRN ×6 (08:42→19:31)
[2021-01-22] MEDS: Vitamin THERAPEUTIC TAB PO SCH (09:34)
[2021-01-23] MEDS: Nicotine PATCH 14 MG/24 HR PATCH TRANSDERM SCH (07:27)
[2021-01-23] MEDS: Vitamin THERAPEUTIC TAB PO SCH (07:28)
[2021-01-23] MEDS: VELPATASVIR PO SCH (07:30)
[2021-01-23] MEDS: SOFOSBUVIR PO SCH (07:30)
[2021-01-23] MEDS: Nicotine Lozenge mini 2 MG LOZNG.MINI MT PRN ×6 (07:31→19:10)
[2021-01-24] MEDS: Nicotine Lozenge mini 2 MG LOZNG.MINI MT PRN ×7 (01:32→19:16)
[2021-01-24] MEDS: Nicotine PATCH 14 MG/24 HR PATCH TRANSDERM SCH (07:33)
[2021-01-24] MEDS: VELPATASVIR PO SCH (07:34)
[2021-01-24] MEDS: SOFOSBUVIR PO SCH (07:34)
[2021-01-24] MEDS: Vitamin THERAPEUTIC TAB PO SCH (07:37)
[2021-01-24] MEDS: Nicotine GUM 2MG FRUIT FLAVOR PO PRN (15:55)
[2021-01-25] MEDS: Nicotine Lozenge mini 2 MG LOZNG.MINI MT PRN ×9 (01:45→23:09)
[2021-01-25] MEDS: Vitamin THERAPEUTIC TAB PO SCH (08:11)
[2021-01-25] MEDS: Nicotine PATCH 14 MG/24 HR PATCH TRANSDERM SCH (08:11)
[2021-01-25] MEDS: VELPATASVIR PO SCH (08:12)
[2021-01-25] MEDS: SOFOSBUVIR PO SCH (08:12)
[2021-01-25] MEDS: Al Hydrox/Mg Hydrox/Simet LIQ 30 ML UDC PO PRN (09:09)
[2021-01-25] MEDS: Nicotine GUM 2MG FRUIT FLAVOR PO PRN ×2 (11:31→18:50)
[2021-01-26] MEDS: Nicotine Lozenge mini 2 MG LOZNG.MINI MT PRN ×7 (03:26→19:52)
[2021-01-26] MEDS: Nicotine PATCH 14 MG/24 HR PATCH TRANSDERM SCH (07:36)
[2021-01-26] MEDS: VELPATASVIR PO SCH (07:37)
[2021-01-26] MEDS: Vitamin THERAPEUTIC TAB PO SCH (07:37)
[2021-01-26] MEDS: SOFOSBUVIR PO SCH (07:37)
[2021-01-26] MEDS: Nicotine GUM 2MG FRUIT FLAVOR PO PRN (12:13)
[2021-01-27] MEDS: Nicotine Lozenge mini 2 MG LOZNG.MINI MT PRN ×3 (05:21→10:16)
[2021-01-27] MEDS: Nicotine PATCH 14 MG/24 HR PATCH TRANSDERM SCH (07:19)
[2021-01-27] MEDS: Vitamin THERAPEUTIC TAB PO SCH (07:20)
[2021-01-27] MEDS: SOFOSBUVIR PO SCH (07:23)
[2021-01-27] MEDS: VELPATASVIR PO SCH (07:23)
[2021-01-27 08:23] VITALS: BP 105/74
== END 2021-01-27 12:35 | disposition home or self-care (01) | DRG 753 ==
LOC: ED 19:35 → BSU 12-13 04:50
PROVIDERS: ADMIT Psychiatry & Neurology Psychiatry; ATTEND Psychiatry & Neurology Psychiatry

== ENCOUNTER 2021-03-12 20:12 | Inpatient (IN) ==
[2021-03-12] MEDS ORDERED: NS 0.9% 1000 ml BAG 1,000 ML IV ONE (21:52)
[2021-03-12 22:19] LABS: ABS Basophils 0.1 10^3/ul (0-0.2); ABS Lymphocytes 2.6 10^3/ul (1.0-4.8); ABS Monocytes 1.1 10^3/ul (0-0.8); ABS Neutrophils 9.9 10^3/ul (1.5-7.7); Eosinophil % 0.1 %; Hematocrit 35 % (35-47); Hemoglobin 11.8 g/dL (12.0-16.0); Lymphocyte % 19.1 %; Mean Corpuscular HGB Conc 34 g/dL (31-36); Mean Corpuscular Hemoglobin 31 pg (27-31); Mean Corpuscular Volume 91 fL (80-97); Mean Platelet Volume 8.9 fL (7.4-10.4); Platelet Count 237 10^3/uL (150-450); Red Blood Count 3.89 10^6 /uL (3.70-4.87); Red Cell Distribution Width 12 % (10-15); White Blood Count 13.7 10^3/uL (3.5-10.8)
[2021-03-12 22:33] LABS: Urine Benzodiazepine Screen None Detected (None Detect); Urine Cannabinoids Screen None Detected (None Detect); Urine Opiates Screen None Detected (None Detect)
[2021-03-12 22:35] LABS: ALT 18 U/L (7-52); AST 44 U/L (13-39); Albumin 4.6 g/dL (3.2-5.2); Albumin/Globulin Ratio 1.8 (1-3); Alkaline Phosphatase 49 U/L (35-149); Anion Gap 8 mmol/L (2-11); Blood Urea Nitrogen 12 mg/dL (6-24); CO2 Carbon Dioxide 26 mmol/L (22-32); Calcium 9.3 mg/dL (8.6-10.3); Chloride 100 mmol/L (101-111); Globulin 2.6 g/dL (2-4); Glucose 92 mg/dL (70-100); Potassium 4.2 mmol/L (3.5-5.0); Sodium 134 mmol/L (135-145); Total Protein 7.2 g/dL (6.4-8.9); eGFR CKD-EPI 96.4 (>60)
[2021-03-12] MEDS ORDERED: LORazepam 2 mg VIAL 1 ml IV PUSH ONE (22:41)
[2021-03-12] MEDS ORDERED: Lorazepam PYXIS KEY PRN (22:41)
[2021-03-12 23:42] LABS: Troponin I 2.69 ng/mL (<0.03)
[2021-03-13 00:25] LABS: Acetaminophen < 15 mcg/mL; Alcohol, S < 13 mg/dL (<13); Salicylate < 2.50 mg/dL (<30)
[2021-03-13 00:49] LABS: Urine Appearance Cloudy; Urine Bilirubin Negative (Negative); Urine Blood 1+ (Negative); Urine Color Yellow; Urine Glucose 1+(50 mg/dL) (Negative); Urine Ketones Negative (Negative); Urine Nitrite Negative (Negative); Urine Protein Negative (Negative); Urine Specific Gravity 1.017 (1.002-1.030); Urine Urobilinogen Negative (Negative)
[2021-03-13 00:54] LABS: Urine Bacteria 1+ (Absent); Urine Red Blood Cell 1+(3-5/hpf) (Absent); Urine Squamous Epithelial Cell Present (Absent); Urine White Blood Cell Trace(0-5/hpf) (Absent)
[2021-03-13] MEDS ORDERED: Diltiazem IV push/loading dose 5 MG/ML 5 ML vial (25 mg) IV SLOW PU ONE (01:19)
[2021-03-13 01:57] LABS: Troponin I 3.19 ng/mL (<0.03)
[2021-03-13] MEDS ORDERED: NS 0.9% 1000 ml BAG 1,000 ML IV SCH (02:30)
[2021-03-13] MEDS ORDERED: Heparin DRIP 25,000 UNITS BAG 25,000 UNITS/500 ML BAG IV SCH ×2 (02:45→04:45)
[2021-03-13] MEDS ORDERED: Heparin 5000 UNITS/ML 1 mL VIAL IV SCH (03:00)
[2021-03-13 03:03] LABS: ABS Basophils 0.1 10^3/ul (0-0.2); ABS Eosinophils 0.1 10^3/ul (0-0.6); ABS Lymphocytes 3.1 10^3/ul (1.0-4.8); Eosinophil % 0.5 %; Hematocrit 32 % (35-47); Hemoglobin 10.7 g/dL (12.0-16.0); Lymphocyte % 27.3 %; Mean Corpuscular HGB Conc 34 g/dL (31-36); Mean Corpuscular Hemoglobin 30 pg (27-31); Mean Corpuscular Volume 90 fL (80-97); Mean Platelet Volume 8.7 fL (7.4-10.4); Nucleated Red Blood Cells % 0.1; Platelet Count 204 10^3/uL (150-450); Red Blood Count 3.53 10^6 /uL (3.70-4.87); Red Cell Distribution Width 12 % (10-15); White Blood Count 11.2 10^3/uL (3.5-10.8)
[2021-03-13 03:17] LABS: eGFR CKD-EPI 112.2 (>60)
[2021-03-13] MEDS ORDERED: Iohexol 350 (CONTRAST) 500 ML MDV IV ONE (03:19)
[2021-03-13] MEDS ORDERED: Nicotine Lozenge mini 2 MG LOZNG.MINI MT PRN (04:49)
[2021-03-13 06:26] LABS: HDL Cholesterol 27.7 mg/dL
[2021-03-13] MEDS: Heparin 5000 UNITS/ML 1 mL VIAL IV SCH ×2 (06:32→13:30)
[2021-03-13 06:46] LABS: Troponin I 3.16 ng/mL (<0.03)
[2021-03-13 16:51] LABS: Troponin I 2.37 ng/mL (<0.03)
[2021-03-14 07:54] VITALS: BP 114/70
[2021-03-14 09:04] LABS: ABS Eosinophils 0.2 10^3/ul (0-0.6); ABS Lymphocytes 1.7 10^3/ul (1.0-4.8); ABS Monocytes 0.6 10^3/ul (0-0.8); ABS Neutrophils 4.1 10^3/ul (1.5-7.7); Eosinophil % 2.6 %; Hematocrit 34 % (35-47); Hemoglobin 11.9 g/dL (12.0-16.0); Lymphocyte % 25.5 %; Mean Corpuscular HGB Conc 35 g/dL (31-36); Mean Corpuscular Hemoglobin 31 pg (27-31); Mean Corpuscular Volume 88 fL (80-97); Mean Platelet Volume 8.3 fL (7.4-10.4); Platelet Count 232 10^3/uL (150-450); Red Blood Count 3.89 10^6 /uL (3.70-4.87); Red Cell Distribution Width 12 % (10-15); White Blood Count 6.5 10^3/uL (3.5-10.8)
[2021-03-14 09:22] LABS: Calcium 8.6 mg/dL (8.6-10.3); Potassium 3.7 mmol/L (3.5-5.0); eGFR CKD-EPI 124.5 (>60)
== END 2021-03-14 12:01 | disposition home or self-care (01) | DRG 190 ==
LOC: ED 20:12 → SUATTDRO 03-13 02:20 → EDHOLD 03-13 02:20 → MEDTELE 03-13 09:25
PROVIDERS: ADMIT Internal Medicine; ATTEND Internal Medicine

== ENCOUNTER 2021-08-10 16:14 | Inpatient (IN) ==
[2021-08-10 17:04] LABS: Urine Appearance Cloudy; Urine Bilirubin Negative (Negative); Urine Blood Negative (Negative); Urine Color Yellow; Urine Glucose Negative (Negative); Urine Ketones Negative (Negative); Urine Nitrite Negative (Negative); Urine Protein Negative (Negative); Urine Specific Gravity 1.012 (1.002-1.030); Urine Urobilinogen Negative (Negative)
[2021-08-10 17:08] LABS: Urine Bacteria Absent (Absent); Urine Red Blood Cell 1+(3-5/hpf) (Absent); Urine Squamous Epithelial Cell Present (Absent); Urine White Blood Cell 2+(11-20/hpf) (Absent)
[2021-08-10 17:46] LABS: Urine Benzodiazepine Screen None Detected (None Detect); Urine Cannabinoids Screen None Detected (None Detect); Urine Opiates Screen None Detected (None Detect)
[2021-08-10 18:23] LABS: Hematocrit 39 % (35-47); Hemoglobin 12.6 g/dL (12.0-16.0); Mean Corpuscular HGB Conc 33 g/dL (31-36); Mean Corpuscular Hemoglobin 30 pg (27-31); Mean Corpuscular Volume 91 fL (80-97); Red Blood Count 4.28 10^6 /uL (3.70-4.87); Red Cell Distribution Width 15 % (10-15)
[2021-08-10 18:24] LABS: Albumin 4.3 g/dL (3.2-5.2); CO2 Carbon Dioxide 22 mmol/L (22-32); Calcium 9.3 mg/dL (8.6-10.3); Chloride 107 mmol/L (101-111); Sodium 138 mmol/L (135-145)
[2021-08-10 18:29] LABS: ABS Eosinophils 0.2 10^3/ul (0-0.6); ABS Lymphocytes 2.5 10^3/ul (1.0-4.8); ABS Monocytes 0.4 10^3/ul (0-0.8); ABS Neutrophils 2.9 10^3/ul (1.5-7.7); Eosinophil % 3.2 %; Nucleated Red Blood Cells % 0.2; Platelet Count Platelets clumped. 10^3/uL (150-450)
[2021-08-10 18:30] LABS: ALT 13 U/L (7-52); Acetaminophen < 15 mcg/mL; Albumin/Globulin Ratio 1.7 (1-3); Alcohol, S < 13 mg/dL (<13); Alkaline Phosphatase 53 U/L (35-149); Blood Urea Nitrogen 14 mg/dL (6-24); Globulin 2.6 g/dL (2-4); Glucose 94 mg/dL (70-100); Salicylate < 2.50 mg/dL (<30); Total Protein 6.9 g/dL (6.4-8.9); eGFR CKD-EPI 89.9 (>60)
[2021-08-10 18:39] LABS: Anion Gap 9 mmol/L (2-11)
[2021-08-10] MEDS ORDERED: Albuterol HFA INHALER 8 gm MDI INH PRN (22:28)
[2021-08-10] MEDS: Nicotine Lozenge mini 4 MG LOZNG.MINI MT PRN (22:40)
[2021-08-11] MEDS: Al Hydrox/Mg Hydrox/Simet LIQ 30 ML UDC PO PRN ×2 (01:16→19:32)
[2021-08-11] MEDS: Nicotine Lozenge mini 4 MG LOZNG.MINI MT PRN ×7 (02:35→22:01)
[2021-08-11 08:21] LABS: AST Redraw 14 U/L (13-39); Cholesterol 133 mg/dL; HDL Cholesterol 44.6 mg/dL; LDL Cholesterol 76 mg/dL; Potassium Redraw 4.2 mmol/L (3.5-5.0); Triglycerides 64 mg/dL
[2021-08-11] MEDS: Vitamin THERAPEUTIC TAB PO SCH (08:27)
[2021-08-11] MEDS: Nicotine PATCH 21 MG/24 HR PATCH TRANSDERM SCH (08:28)
[2021-08-11 08:29] LABS: HCG Pregnancy < 0.60 mIU/mL
[2021-08-11 08:38] LABS: TSH Ultra Thyroid Stim Horm 2.71 mcIU/mL (0.34-5.60)
[2021-08-11] MEDS: OLANzapine 5 mg TAB*ODT PO PRN (17:08)
[2021-08-12] MEDS: Nicotine PATCH 21 MG/24 HR PATCH TRANSDERM SCH (09:45)
[2021-08-12] MEDS: Vitamin THERAPEUTIC TAB PO SCH (09:46)
[2021-08-12] MEDS: OLANzapine 5 mg TAB*ODT PO PRN ×2 (09:48→14:12)
[2021-08-12] MEDS: Nicotine Lozenge mini 4 MG LOZNG.MINI MT PRN ×3 (09:54→23:48)
[2021-08-13] MEDS: Nicotine Lozenge mini 4 MG LOZNG.MINI MT PRN ×7 (02:05→21:51)
[2021-08-13] MEDS: Nicotine PATCH 21 MG/24 HR PATCH TRANSDERM SCH (08:08)
[2021-08-13] MEDS: Vitamin THERAPEUTIC TAB PO SCH (08:09)
[2021-08-13] MEDS: OLANzapine 5 mg TAB*ODT PO PRN ×2 (08:10→13:16)
[2021-08-14] MEDS: Nicotine Lozenge mini 4 MG LOZNG.MINI MT PRN ×8 (00:26→21:35)
[2021-08-14] MEDS: Nicotine PATCH 21 MG/24 HR PATCH TRANSDERM SCH (07:48)
[2021-08-14] MEDS: Vitamin THERAPEUTIC TAB PO SCH (08:29)
[2021-08-14] MEDS: Buprenorphine 2 mg SL TAB SL SCH (10:44)
[2021-08-14] MEDS ORDERED: OLANzapine 5 mg TAB*ODT PO ONE (16:58)
[2021-08-14] MEDS ORDERED: OLANzapine 5 mg TAB*ODT ONE (17:02)
[2021-08-14] MEDS: Al Hydrox/Mg Hydrox/Simet LIQ 30 ML UDC PO PRN (19:43)
[2021-08-15] MEDS: Nicotine Lozenge mini 4 MG LOZNG.MINI MT PRN ×3 (01:07→10:57)
[2021-08-15] MEDS: Buprenorphine 2 mg SL TAB SL SCH ×2 (08:19→20:08)
[2021-08-15] MEDS: Nicotine PATCH 21 MG/24 HR PATCH TRANSDERM SCH (08:19)
[2021-08-15] MEDS: Vitamin THERAPEUTIC TAB PO SCH (08:19)
[2021-08-15] MEDS ORDERED: Buprenorphine 2 mg SL TAB SL SCH (09:00)
[2021-08-15] MEDS ORDERED: OLANzapine 5 mg TAB*ODT PO ONE (11:01)
[2021-08-15] MEDS: Nicotine Lozenge mini 4 MG LOZNG.MINI MT SCH ×3 (12:22→20:09)
[2021-08-16] MEDS: Nicotine Lozenge mini 4 MG LOZNG.MINI MT SCH ×7 (00:10→21:13)
[2021-08-16] MEDS: Al Hydrox/Mg Hydrox/Simet LIQ 30 ML UDC PO PRN (03:01)
[2021-08-16 07:06] LABS: Urine Appearance Turbid; Urine Bilirubin Negative (Negative); Urine Blood 2+ (Negative); Urine Color Yellow; Urine Glucose Negative (Negative); Urine Ketones Trace (Negative); Urine Nitrite Negative (Negative); Urine Protein 2+(100 mg/dL) (Negative); Urine Specific Gravity 1.028 (1.002-1.030); Urine Urobilinogen Negative (Negative)
[2021-08-16 07:22] LABS: Urine Bacteria 1+ (Absent); Urine Red Blood Cell 3+(>10/hpf) (Absent); Urine Squamous Epithelial Cell Present (Absent); Urine White Blood Cell 3+(>20/hpf) (Absent)
[2021-08-16] MEDS: Vitamin THERAPEUTIC TAB PO SCH (08:02)
[2021-08-16] MEDS: Buprenorphine 2 mg SL TAB SL SCH ×3 (08:02→20:11)
[2021-08-16] MEDS: Nicotine PATCH 21 MG/24 HR PATCH TRANSDERM SCH (08:03)
[2021-08-16] MEDS: OLANzapine 5 mg TAB*ODT PO PRN (17:19)
[2021-08-17] MEDS: Nicotine Lozenge mini 4 MG LOZNG.MINI MT SCH ×10 (00:40→22:50)
[2021-08-17] MEDS: Vitamin THERAPEUTIC TAB PO SCH (08:36)
[2021-08-17] MEDS: Nicotine PATCH 21 MG/24 HR PATCH TRANSDERM SCH (08:37)
[2021-08-17] MEDS: Buprenorphine 2 mg SL TAB SL SCH ×3 (08:38→20:47)
[2021-08-17] MEDS: OLANzapine 5 mg TAB*ODT PO PRN (09:12)
[2021-08-17] MEDS: Al Hydrox/Mg Hydrox/Simet LIQ 30 ML UDC PO PRN (10:23)
[2021-08-17] MEDS ORDERED: Nicotine Lozenge mini 2 MG LOZNG.MINI MT SCH (11:03)
[2021-08-18] MEDS: Nicotine Lozenge mini 4 MG LOZNG.MINI MT SCH ×12 (00:03→23:22)
[2021-08-18] MEDS: Nicotine PATCH 21 MG/24 HR PATCH TRANSDERM SCH (08:05)
[2021-08-18] MEDS: Vitamin THERAPEUTIC TAB PO SCH (08:06)
[2021-08-18] MEDS: Buprenorphine 2 mg SL TAB SL SCH ×3 (08:06→20:10)
[2021-08-18] MEDS: OLANzapine 5 mg TAB*ODT PO PRN ×2 (08:08→17:20)
[2021-08-19] MEDS: Nicotine Lozenge mini 4 MG LOZNG.MINI MT SCH ×12 (02:53→23:31)
[2021-08-19] MEDS: Nicotine PATCH 21 MG/24 HR PATCH TRANSDERM SCH (08:18)
[2021-08-19] MEDS: Buprenorphine 2 mg SL TAB SL SCH ×3 (08:19→20:07)
[2021-08-19] MEDS: Vitamin THERAPEUTIC TAB PO SCH (08:21)
[2021-08-19] MEDS: OLANzapine 5 mg TAB*ODT PO PRN (08:25)
[2021-08-19] MEDS: Al Hydrox/Mg Hydrox/Simet LIQ 30 ML UDC PO PRN (10:43)
[2021-08-19] MEDS ORDERED: COVID-19 VACCINE, MRNA(PFIZER)/PF 30 MCG/0.3 ML IM ONE (13:30)
[2021-08-20] MEDS: Nicotine Lozenge mini 4 MG LOZNG.MINI MT SCH ×12 (01:31→22:30)
[2021-08-20] MEDS: Vitamin THERAPEUTIC TAB PO SCH (08:37)
[2021-08-20] MEDS: Buprenorphine 2 mg SL TAB SL SCH ×3 (08:37→20:34)
[2021-08-20] MEDS: Nicotine PATCH 21 MG/24 HR PATCH TRANSDERM SCH (08:39)
[2021-08-20] MEDS: Calcium Carb (TUMS) 500 mg CHEW TAB PO PRN ×2 (10:21→20:33)
[2021-08-21] MEDS: Nicotine Lozenge mini 4 MG LOZNG.MINI MT SCH ×12 (00:09→23:10)
[2021-08-21] MEDS: Calcium Carb (TUMS) 500 mg CHEW TAB PO PRN ×2 (01:37→16:01)
[2021-08-21] MEDS: Nicotine PATCH 21 MG/24 HR PATCH TRANSDERM SCH (08:14)
[2021-08-21] MEDS: Buprenorphine 2 mg SL TAB SL SCH ×3 (08:14→20:55)
[2021-08-21] MEDS: Vitamin THERAPEUTIC TAB PO SCH (08:19)
[2021-08-21] MEDS: Ondansetron ODT 4 mg TAB 4 MG TAB PO PRN (15:57)
[2021-08-22] MEDS: Nicotine Lozenge mini 4 MG LOZNG.MINI MT SCH ×13 (00:59→23:51)
[2021-08-22] MEDS: Ondansetron ODT 4 mg TAB 4 MG TAB PO PRN ×2 (04:01→17:15)
[2021-08-22] MEDS: Vitamin THERAPEUTIC TAB PO SCH (08:16)
[2021-08-22] MEDS: Buprenorphine 2 mg SL TAB SL SCH ×3 (08:16→20:07)
[2021-08-22] MEDS: Nicotine PATCH 21 MG/24 HR PATCH TRANSDERM SCH (08:17)
[2021-08-22] MEDS: Calcium Carb (TUMS) 500 mg CHEW TAB PO PRN (18:07)
[2021-08-23] MEDS: Ondansetron ODT 4 mg TAB 4 MG TAB PO PRN ×2 (00:08→10:22)
[2021-08-23] MEDS: Nicotine Lozenge mini 4 MG LOZNG.MINI MT SCH ×11 (02:06→23:47)
[2021-08-23] MEDS: Calcium Carb (TUMS) 500 mg CHEW TAB PO PRN ×3 (02:29→15:42)
[2021-08-23] MEDS: Nicotine PATCH 21 MG/24 HR PATCH TRANSDERM SCH ×2 (05:22→07:36)
[2021-08-23] MEDS: Buprenorphine 2 mg SL TAB SL SCH ×4 (05:24→19:48)
[2021-08-23] MEDS: Vitamin THERAPEUTIC TAB PO SCH (07:36)
[2021-08-23] MEDS ORDERED: Benzocaine/Menthol LOZ PO PRN (10:43)
[2021-08-24] MEDS: Nicotine Lozenge mini 4 MG LOZNG.MINI MT SCH ×6 (07:34→12:04)
[2021-08-24] MEDS: Nicotine PATCH 21 MG/24 HR PATCH TRANSDERM SCH (07:34)
[2021-08-24] MEDS: Buprenorphine 2 mg SL TAB SL SCH (07:34)
[2021-08-24] MEDS: Vitamin THERAPEUTIC TAB PO SCH (07:38)
[2021-08-24 07:54] VITALS: BP 124/42
[2021-08-24] MEDS: Calcium Carb (TUMS) 500 mg CHEW TAB PO PRN ×2 (08:38→11:48)
[2021-08-24] MEDS ORDERED: Buprenorphine 2 mg SL TAB SL SCH (12:01)
== END 2021-08-24 12:45 | disposition home or self-care (01) | DRG 753 ==
LOC: ED 16:14 → BSU 20:41
PROVIDERS: ADMIT Psychiatry & Neurology Psychiatry; ATTEND Psychiatry & Neurology Psychiatry

== ENCOUNTER 2021-12-01 22:26 | Inpatient (IN) ==
[2021-12-01 23:32] LABS: Urine Benzodiazepine Screen None Detected (None Detect); Urine Cannabinoids Screen None Detected (None Detect); Urine Opiates Screen None Detected (None Detect)
[2021-12-01 23:34] LABS: ABS Basophils 0.1 10^3/ul (0-0.2); ABS Eosinophils 0.3 10^3/ul (0-0.6); ABS Lymphocytes 2.4 10^3/ul (1.0-4.8); ABS Monocytes 0.5 10^3/ul (0-0.8); ABS Neutrophils 3.3 10^3/ul (1.5-7.7); Eosinophil % 4.8 %; Hematocrit 38 % (35-47); Hemoglobin 12.8 g/dL (12.0-16.0); Lymphocyte % 36.9 %; Mean Corpuscular HGB Conc 33 g/dL (31-36); Mean Corpuscular Hemoglobin 29 pg (27-31); Mean Corpuscular Volume 85 fL (80-97); Mean Platelet Volume 7.7 fL (7.4-10.4); Nucleated Red Blood Cells % 0.2; Platelet Count 263 10^3/uL (150-450); Red Blood Count 4.49 10^6 /uL (3.70-4.87); Red Cell Distribution Width 13 % (10-15); White Blood Count 6.5 10^3/uL (3.5-10.8)
[2021-12-01 23:53] LABS: Urine Appearance Slightly Cloudy; Urine Bilirubin Negative (Negative); Urine Color Yellow; Urine Glucose Negative (Negative); Urine Ketones Negative (Negative)
[2021-12-01 23:54] LABS: Urine Blood Trace (Intact) (Negative); Urine Nitrite Positive (Negative); Urine Protein Negative (Negative); Urine Specific Gravity 1.024 (1.002-1.030); Urine Urobilinogen 0.2 (Negative) (Negative); Urine pH 5.5 (5.0-9.0)
[2021-12-02 00:04] LABS: ALT 13 U/L (7-52); AST 14 U/L (13-39); Acetaminophen < 15 mcg/mL; Albumin 4.5 g/dL (3.2-5.2); Alcohol, S < 13 mg/dL (<13); Alkaline Phosphatase 55 U/L (35-149); Anion Gap 6 mmol/L (2-11); Blood Urea Nitrogen 13 mg/dL (6-24); CO2 Carbon Dioxide 26 mmol/L (22-32); Calcium 9.3 mg/dL (8.6-10.3); Chloride 103 mmol/L (101-111); Creatine Kinase 112 U/L (10-223); Globulin 2.3 g/dL (2-4); Glucose 117 mg/dL (70-100); Potassium 3.9 mmol/L (3.5-5.0); Salicylate < 2.50 mg/dL (<30); Sodium 135 mmol/L (135-145); Total Protein 6.8 g/dL (6.4-8.9); eGFR CKD-EPI 103.8 (>60)
[2021-12-02 00:09] LABS: HCG Pregnancy < 0.60 mIU/mL
[2021-12-02 00:11] LABS: Urine Bacteria 3+ (Absent); Urine Red Blood Cell 1+(3-5/hpf) (Absent); Urine Squamous Epithelial Cell Present (Absent); Urine White Blood Cell 3+(>20/hpf) (Absent)
[2021-12-02 00:30] LABS: HIV 4th Generation Nonreactive (Nonreactive)
[2021-12-02] MEDS ORDERED: Midazolam 2 mg/2 ml VIAL 1 mg/ml 2 ml VIAL (2 mg) IM ONE (01:02)
[2021-12-02] MEDS ORDERED: Haloperidol 5 mg/ml SDV IV/IM 5 MG/ML AMP IM ONE (01:02)
[2021-12-02] MEDS ORDERED: LORazepam 2 mg VIAL 1 ml ONE (01:03)
[2021-12-02] MEDS ORDERED: LORazepam 2 mg VIAL 1 ml IM ONE (01:07)
[2021-12-02] MEDS: Buprenorphine 2 mg SL TAB SL SCH (14:23)
[2021-12-02] MEDS ORDERED: Albuterol HFA INHALER 8 gm MDI INH PRN (14:32)
[2021-12-02 14:45] LABS: Valproic Acid < 13.0 mcg/mL (50-100)
[2021-12-02] MEDS: Nicotine PATCH 21 MG/24 HR PATCH TRANSDERM SCH ×2 (16:45→18:34)
[2021-12-02] MEDS: Sulfamethox/Trimethoprim DS TAB 800/160 mg PO SCH (21:00)
[2021-12-02] MEDS: Nicotine Lozenge mini 4 MG LOZNG.MINI MT PRN (21:03)
[2021-12-03] MEDS: Sulfamethox/Trimethoprim DS TAB 800/160 mg PO SCH ×2 (07:19→20:25)
[2021-12-03] MEDS: Buprenorphine 2 mg SL TAB SL SCH (07:19)
[2021-12-03] MEDS: Vitamin THERAPEUTIC TAB PO SCH (07:19)
[2021-12-03] MEDS: Nicotine PATCH 21 MG/24 HR PATCH TRANSDERM SCH (07:20)
[2021-12-03] MEDS: Nicotine Lozenge mini 4 MG LOZNG.MINI MT PRN ×3 (13:33→20:40)
[2021-12-03] MEDS ORDERED: Naloxone Nasal Spray 4 MG/0.1 ML NASAL.SPR INTRANASAL PRN (15:27)
[2021-12-04] MEDS: Nicotine Lozenge mini 4 MG LOZNG.MINI MT PRN ×6 (00:25→22:09)
[2021-12-04] MEDS: Sulfamethox/Trimethoprim DS TAB 800/160 mg PO SCH ×2 (08:33→21:24)
[2021-12-04] MEDS: Nicotine PATCH 21 MG/24 HR PATCH TRANSDERM SCH (08:38)
[2021-12-04] MEDS: Vitamin THERAPEUTIC TAB PO SCH (08:38)
[2021-12-04] MEDS: OLANZapine 10 mg TAB*ODT PO PRN (10:22)
[2021-12-04] MEDS ORDERED: Naloxone Nasal Spray 4 MG/0.1 ML NASAL.SPR INTRANASAL PRN (13:18)
[2021-12-05] MEDS: Nicotine Lozenge mini 4 MG LOZNG.MINI MT PRN ×5 (05:49→22:54)
[2021-12-05] MEDS: Sulfamethox/Trimethoprim DS TAB 800/160 mg PO SCH ×2 (08:30→20:44)
[2021-12-05] MEDS: Vitamin THERAPEUTIC TAB PO SCH (08:30)
[2021-12-05] MEDS: Nicotine PATCH 21 MG/24 HR PATCH TRANSDERM SCH (08:31)
[2021-12-05] MEDS: OLANZapine 10 mg TAB*ODT PO PRN (19:11)
[2021-12-06] MEDS: Nicotine Lozenge mini 4 MG LOZNG.MINI MT PRN ×3 (03:53→21:02)
[2021-12-06] MEDS: Sulfamethox/Trimethoprim DS TAB 800/160 mg PO SCH ×2 (11:54→20:57)
[2021-12-06] MEDS: Nicotine PATCH 21 MG/24 HR PATCH TRANSDERM SCH (11:57)
[2021-12-06] MEDS: Vitamin THERAPEUTIC TAB PO SCH (15:08)
[2021-12-07] MEDS: Nicotine Lozenge mini 4 MG LOZNG.MINI MT PRN ×5 (01:01→23:20)
[2021-12-07] MEDS: Sulfamethox/Trimethoprim DS TAB 800/160 mg PO SCH ×2 (07:23→21:27)
[2021-12-07] MEDS: Nicotine PATCH 21 MG/24 HR PATCH TRANSDERM SCH (07:26)
[2021-12-07] MEDS: Vitamin THERAPEUTIC TAB PO SCH (08:12)
[2021-12-07] MEDS: OLANZapine 10 mg TAB*ODT PO PRN ×2 (08:55→15:02)
[2021-12-07] MEDS: Al Hydrox/Mg Hydrox/Simet LIQ 30 ML UDC PO PRN (21:54)
[2021-12-08] MEDS: Sulfamethox/Trimethoprim DS TAB 800/160 mg PO SCH ×2 (08:43→21:14)
[2021-12-08] MEDS: Nicotine PATCH 21 MG/24 HR PATCH TRANSDERM SCH (08:44)
[2021-12-08] MEDS: Nicotine Lozenge mini 4 MG LOZNG.MINI MT PRN ×5 (08:44→21:17)
[2021-12-08] MEDS: Vitamin THERAPEUTIC TAB PO SCH (08:46)
[2021-12-08] MEDS: OLANZapine 10 mg TAB*ODT PO PRN ×2 (09:01→17:09)
[2021-12-09] MEDS: Nicotine Lozenge mini 4 MG LOZNG.MINI MT PRN ×5 (00:06→19:03)
[2021-12-09] MEDS: Nicotine PATCH 21 MG/24 HR PATCH TRANSDERM SCH (09:46)
[2021-12-09] MEDS: Sulfamethox/Trimethoprim DS TAB 800/160 mg PO SCH (10:24)
[2021-12-09] MEDS: Vitamin THERAPEUTIC TAB PO SCH (10:24)
[2021-12-09] MEDS ORDERED: Simethicone SUSP ORALSYR 66.66 MG/ML PO PRN (11:01)
[2021-12-09] MEDS: Buprenorphine 2 mg SL TAB SL SCH (20:45)
[2021-12-09] MEDS: OLANZapine 5 mg TAB *ODT PO PRN (22:26)
[2021-12-10] MEDS: Nicotine Lozenge mini 4 MG LOZNG.MINI MT PRN ×5 (04:06→20:44)
[2021-12-10] MEDS: Nicotine PATCH 21 MG/24 HR PATCH TRANSDERM SCH (08:18)
[2021-12-10] MEDS: Buprenorphine 2 mg SL TAB SL SCH ×3 (08:18→20:38)
[2021-12-10] MEDS: Vitamin THERAPEUTIC TAB PO SCH (09:20)
[2021-12-10] MEDS: Al Hydrox/Mg Hydrox/Simet LIQ 30 ML UDC PO PRN (11:39)
[2021-12-10] MEDS: OLANZapine 5 mg TAB *ODT PO PRN (17:46)
[2021-12-11] MEDS: Nicotine Lozenge mini 4 MG LOZNG.MINI MT PRN ×6 (00:20→19:44)
[2021-12-11] MEDS: Al Hydrox/Mg Hydrox/Simet LIQ 30 ML UDC PO PRN (01:21)
[2021-12-11] MEDS: Buprenorphine 2 mg SL TAB SL SCH ×3 (07:54→20:41)
[2021-12-11] MEDS: Nicotine PATCH 21 MG/24 HR PATCH TRANSDERM SCH (07:54)
[2021-12-11] MEDS: Vitamin THERAPEUTIC TAB PO SCH (07:55)
[2021-12-11] MEDS: OLANZapine 5 mg TAB *ODT PO PRN (17:39)
[2021-12-12] MEDS: Nicotine Lozenge mini 4 MG LOZNG.MINI MT PRN ×7 (00:31→23:09)
[2021-12-12] MEDS: Vitamin THERAPEUTIC TAB PO SCH (07:11)
[2021-12-12] MEDS: Nicotine PATCH 21 MG/24 HR PATCH TRANSDERM SCH (07:11)
[2021-12-12] MEDS: Buprenorphine 2 mg SL TAB SL SCH ×3 (07:14→20:25)
[2021-12-12] MEDS: OLANZapine 5 mg TAB *ODT PO PRN (16:04)
[2021-12-13] MEDS: Nicotine Lozenge mini 4 MG LOZNG.MINI MT PRN ×8 (01:15→23:20)
[2021-12-13] MEDS: Buprenorphine 2 mg SL TAB SL SCH ×3 (10:04→20:19)
[2021-12-13] MEDS: Vitamin THERAPEUTIC TAB PO SCH (10:05)
[2021-12-13] MEDS: Nicotine PATCH 21 MG/24 HR PATCH TRANSDERM SCH (10:05)
[2021-12-13] MEDS: OLANZapine 5 mg TAB *ODT PO PRN ×3 (12:37→23:24)
[2021-12-14] MEDS: Nicotine Lozenge mini 4 MG LOZNG.MINI MT PRN ×5 (04:45→21:05)
[2021-12-14] MEDS: Buprenorphine 2 mg SL TAB SL SCH ×2 (09:39→20:05)
[2021-12-14] MEDS: Nicotine PATCH 21 MG/24 HR PATCH TRANSDERM SCH (09:40)
[2021-12-14] MEDS: Vitamin THERAPEUTIC TAB PO SCH (10:49)
[2021-12-14] MEDS: OLANZapine 5 mg TAB *ODT PO PRN (17:57)
[2021-12-15] MEDS: Nicotine Lozenge mini 4 MG LOZNG.MINI MT PRN ×6 (00:22→22:10)
[2021-12-15] MEDS: Buprenorphine 2 mg SL TAB SL SCH ×2 (08:18→20:29)
[2021-12-15] MEDS: Vitamin THERAPEUTIC TAB PO SCH (08:19)
[2021-12-15] MEDS: Nicotine PATCH 21 MG/24 HR PATCH TRANSDERM SCH (08:19)
[2021-12-15] MEDS: Al Hydrox/Mg Hydrox/Simet LIQ 30 ML UDC PO PRN (17:22)
[2021-12-15] MEDS: OLANZapine 5 mg TAB *ODT PO PRN (19:08)
[2021-12-16] MEDS: Nicotine Lozenge mini 4 MG LOZNG.MINI MT PRN ×7 (00:37→22:08)
[2021-12-16] MEDS: Vitamin THERAPEUTIC TAB PO SCH (09:22)
[2021-12-16] MEDS: Buprenorphine 2 mg SL TAB SL SCH ×3 (09:22→20:52)
[2021-12-16] MEDS: Nicotine PATCH 21 MG/24 HR PATCH TRANSDERM SCH (09:22)
[2021-12-16] MEDS: OLANZapine 5 mg TAB *ODT PO PRN (21:30)
[2021-12-17] MEDS: Nicotine Lozenge mini 4 MG LOZNG.MINI MT PRN ×6 (02:29→17:24)
[2021-12-17] MEDS: Buprenorphine 2 mg SL TAB SL SCH ×3 (08:51→20:36)
[2021-12-17] MEDS: Nicotine PATCH 21 MG/24 HR PATCH TRANSDERM SCH (08:52)
[2021-12-17] MEDS: Vitamin THERAPEUTIC TAB PO SCH ×2 (08:52→09:14)
[2021-12-18] MEDS: Nicotine Lozenge mini 4 MG LOZNG.MINI MT PRN ×5 (03:28→23:13)
[2021-12-18] MEDS: Buprenorphine 2 mg SL TAB SL SCH ×3 (08:12→19:37)
[2021-12-18] MEDS: Vitamin THERAPEUTIC TAB PO SCH (08:13)
[2021-12-18] MEDS: Nicotine PATCH 21 MG/24 HR PATCH TRANSDERM SCH (08:52)
[2021-12-18] MEDS: OLANZapine 5 mg TAB *ODT PO PRN (11:11)
[2021-12-19] MEDS: Nicotine Lozenge mini 4 MG LOZNG.MINI MT PRN ×6 (01:30→21:00)
[2021-12-19] MEDS: Buprenorphine 2 mg SL TAB SL SCH ×3 (09:10→20:11)
[2021-12-19] MEDS: Nicotine PATCH 21 MG/24 HR PATCH TRANSDERM SCH (09:12)
[2021-12-19] MEDS: Vitamin THERAPEUTIC TAB PO SCH (09:12)
[2021-12-19] MEDS: OLANZapine 5 mg TAB *ODT PO PRN ×2 (14:46→21:48)
[2021-12-20] MEDS: Nicotine Lozenge mini 4 MG LOZNG.MINI MT PRN ×4 (03:54→22:57)
[2021-12-20] MEDS: Nicotine PATCH 21 MG/24 HR PATCH TRANSDERM SCH (09:56)
[2021-12-20] MEDS: Buprenorphine 2 mg SL TAB SL SCH ×3 (09:57→20:45)
[2021-12-20] MEDS: Vitamin THERAPEUTIC TAB PO SCH (09:58)
[2021-12-20] MEDS: OLANZapine 5 mg TAB *ODT PO PRN (17:03)
[2021-12-21] MEDS: Nicotine Lozenge mini 4 MG LOZNG.MINI MT PRN ×8 (01:32→23:13)
[2021-12-21] MEDS: Buprenorphine 2 mg SL TAB SL SCH ×3 (07:50→19:10)
[2021-12-21] MEDS: Nicotine PATCH 21 MG/24 HR PATCH TRANSDERM SCH (07:51)
[2021-12-21] MEDS: Vitamin THERAPEUTIC TAB PO SCH (08:03)
[2021-12-21] MEDS: Al Hydrox/Mg Hydrox/Simet LIQ 30 ML UDC PO PRN (12:08)
[2021-12-21] MEDS: OLANZapine 5 mg TAB *ODT PO PRN (20:25)
[2021-12-22] MEDS: Nicotine Lozenge mini 4 MG LOZNG.MINI MT PRN ×6 (01:18→21:42)
[2021-12-22] MEDS: Nicotine PATCH 21 MG/24 HR PATCH TRANSDERM SCH (08:09)
[2021-12-22] MEDS: Buprenorphine 2 mg SL TAB SL SCH ×3 (08:10→21:39)
[2021-12-22] MEDS: Vitamin THERAPEUTIC TAB PO SCH (08:25)
[2021-12-22] MEDS: OLANZapine 5 mg TAB *ODT PO PRN (16:51)
[2021-12-23] MEDS: Nicotine Lozenge mini 4 MG LOZNG.MINI MT PRN ×5 (03:01→19:50)
[2021-12-23] MEDS: Vitamin THERAPEUTIC TAB PO SCH (10:15)
[2021-12-23] MEDS: Buprenorphine 2 mg SL TAB SL SCH ×3 (10:16→20:41)
[2021-12-23] MEDS: Nicotine PATCH 21 MG/24 HR PATCH TRANSDERM SCH (10:17)
[2021-12-23] MEDS: OLANZapine 5 mg TAB *ODT PO PRN (21:29)
[2021-12-24] MEDS: Nicotine Lozenge mini 4 MG LOZNG.MINI MT PRN ×9 (00:29→22:41)
[2021-12-24] MEDS: Buprenorphine 2 mg SL TAB SL SCH ×3 (09:36→20:35)
[2021-12-24] MEDS: Vitamin THERAPEUTIC TAB PO SCH (09:36)
[2021-12-24] MEDS: Nicotine PATCH 21 MG/24 HR PATCH TRANSDERM SCH (09:37)
[2021-12-24] MEDS: OLANZapine 5 mg TAB *ODT PO PRN (21:52)
[2021-12-25] MEDS: Nicotine Lozenge mini 4 MG LOZNG.MINI MT PRN ×8 (01:48→22:48)
[2021-12-25] MEDS: Buprenorphine 2 mg SL TAB SL SCH ×3 (07:49→20:00)
[2021-12-25] MEDS: Nicotine PATCH 21 MG/24 HR PATCH TRANSDERM SCH (07:51)
[2021-12-25] MEDS: Vitamin THERAPEUTIC TAB PO SCH (07:54)
[2021-12-25] MEDS: OLANZapine 5 mg TAB *ODT PO PRN (18:39)
[2021-12-26] MEDS: Nicotine Lozenge mini 4 MG LOZNG.MINI MT PRN ×6 (00:03→21:43)
[2021-12-26] MEDS: Buprenorphine 2 mg SL TAB SL SCH ×3 (09:43→20:42)
[2021-12-26] MEDS: Vitamin THERAPEUTIC TAB PO SCH (09:44)
[2021-12-26] MEDS: Nicotine PATCH 21 MG/24 HR PATCH TRANSDERM SCH (10:29)
[2021-12-26] MEDS: OLANZapine 5 mg TAB *ODT PO PRN (11:02)
[2021-12-27] MEDS: Nicotine Lozenge mini 4 MG LOZNG.MINI MT PRN ×6 (01:08→23:05)
[2021-12-27] MEDS: Nicotine PATCH 21 MG/24 HR PATCH TRANSDERM SCH (09:00)
[2021-12-27] MEDS: Buprenorphine 2 mg SL TAB SL SCH ×3 (09:00→22:01)
[2021-12-27] MEDS: Vitamin THERAPEUTIC TAB PO SCH (09:01)
[2021-12-27] MEDS: OLANZapine 5 mg TAB *ODT PO PRN (15:24)
[2021-12-28] MEDS: Nicotine Lozenge mini 4 MG LOZNG.MINI MT PRN ×6 (04:00→22:00)
[2021-12-28] MEDS: Vitamin THERAPEUTIC TAB PO SCH (07:20)
[2021-12-28] MEDS: Buprenorphine 2 mg SL TAB SL SCH ×3 (07:56→20:23)
[2021-12-28] MEDS: Nicotine PATCH 21 MG/24 HR PATCH TRANSDERM SCH (07:57)
[2021-12-28] MEDS: OLANZapine 5 mg TAB *ODT PO PRN (18:40)
[2021-12-29] MEDS: Nicotine Lozenge mini 4 MG LOZNG.MINI MT PRN ×7 (00:09→22:58)
[2021-12-29] MEDS: Nicotine PATCH 21 MG/24 HR PATCH TRANSDERM SCH (08:00)
[2021-12-29] MEDS: Buprenorphine 2 mg SL TAB SL SCH ×3 (08:00→21:24)
[2021-12-29] MEDS: Vitamin THERAPEUTIC TAB PO SCH (08:04)
[2021-12-30] MEDS: Nicotine Lozenge mini 4 MG LOZNG.MINI MT PRN ×7 (02:37→22:35)
[2021-12-30] MEDS: Buprenorphine 2 mg SL TAB SL SCH ×3 (08:10→20:30)
[2021-12-30] MEDS: Vitamin THERAPEUTIC TAB PO SCH (08:11)
[2021-12-30] MEDS: Nicotine PATCH 21 MG/24 HR PATCH TRANSDERM SCH (08:14)
[2021-12-31] MEDS: OLANZapine 5 mg TAB *ODT PO PRN ×2 (00:12→17:59)
[2021-12-31] MEDS: Nicotine Lozenge mini 4 MG LOZNG.MINI MT PRN ×5 (00:35→22:32)
[2021-12-31] MEDS: Nicotine PATCH 21 MG/24 HR PATCH TRANSDERM SCH (08:22)
[2021-12-31] MEDS: Vitamin THERAPEUTIC TAB PO SCH (08:22)
[2021-12-31] MEDS: Buprenorphine 2 mg SL TAB SL SCH ×3 (08:22→19:48)
[2022-01-01] MEDS: Nicotine Lozenge mini 4 MG LOZNG.MINI MT PRN ×9 (00:07→22:09)
[2022-01-01] MEDS: OLANZapine 5 mg TAB *ODT PO PRN ×2 (00:07→18:01)
[2022-01-01] MEDS: Vitamin THERAPEUTIC TAB PO SCH (09:05)
[2022-01-01] MEDS: Buprenorphine 2 mg SL TAB SL SCH ×3 (09:05→19:47)
[2022-01-01] MEDS: Nicotine PATCH 21 MG/24 HR PATCH TRANSDERM SCH (09:06)
[2022-01-02] MEDS: Nicotine Lozenge mini 4 MG LOZNG.MINI MT PRN ×8 (02:28→23:04)
[2022-01-02] MEDS: Vitamin THERAPEUTIC TAB PO SCH (08:59)
[2022-01-02] MEDS: Nicotine PATCH 21 MG/24 HR PATCH TRANSDERM SCH (08:59)
[2022-01-02] MEDS: Buprenorphine 2 mg SL TAB SL SCH ×3 (08:59→20:18)
[2022-01-02] MEDS: OLANZapine 5 mg TAB *ODT PO PRN ×2 (13:27→18:46)
[2022-01-03] MEDS: Buprenorphine 2 mg SL TAB SL SCH ×3 (07:12→19:10)
[2022-01-03] MEDS: Nicotine PATCH 21 MG/24 HR PATCH TRANSDERM SCH (07:13)
[2022-01-03] MEDS: Vitamin THERAPEUTIC TAB PO SCH (07:13)
[2022-01-03] MEDS: Nicotine Lozenge mini 4 MG LOZNG.MINI MT PRN ×8 (07:14→21:30)
[2022-01-03] MEDS: OLANZapine 5 mg TAB *ODT PO PRN ×2 (11:33→17:29)
[2022-01-04] MEDS: Nicotine Lozenge mini 4 MG LOZNG.MINI MT PRN ×6 (02:17→20:51)
[2022-01-04] MEDS: Buprenorphine 2 mg SL TAB SL SCH ×3 (08:14→20:15)
[2022-01-04] MEDS: Nicotine PATCH 21 MG/24 HR PATCH TRANSDERM SCH (08:14)
[2022-01-04] MEDS: Vitamin THERAPEUTIC TAB PO SCH (08:14)
[2022-01-04] MEDS: OLANZapine 5 mg TAB *ODT PO PRN ×3 (12:12→20:15)
[2022-01-04] MEDS ORDERED: Buprenorphine 2 mg SL TAB ONE (15:40)
[2022-01-05] MEDS: Buprenorphine 2 mg SL TAB SL SCH ×3 (07:35→21:09)
[2022-01-05] MEDS: Nicotine PATCH 21 MG/24 HR PATCH TRANSDERM SCH (07:37)
[2022-01-05] MEDS: Nicotine Lozenge mini 4 MG LOZNG.MINI MT PRN ×4 (07:37→21:54)
[2022-01-05] MEDS: Vitamin THERAPEUTIC TAB PO SCH (07:45)
[2022-01-05] MEDS: OLANZapine 5 mg TAB *ODT PO PRN (21:08)
[2022-01-06] MEDS: Buprenorphine 2 mg SL TAB SL SCH ×3 (08:31→20:02)
[2022-01-06] MEDS: Nicotine PATCH 21 MG/24 HR PATCH TRANSDERM SCH (08:32)
[2022-01-06] MEDS: Vitamin THERAPEUTIC TAB PO SCH (08:32)
[2022-01-06] MEDS: Nicotine Lozenge mini 4 MG LOZNG.MINI MT PRN ×3 (08:45→22:20)
[2022-01-06 11:03] LABS: ABS Basophils 0.1 10^3/ul (0-0.2); ABS Eosinophils 0.2 10^3/ul (0-0.6); ABS Lymphocytes 2.9 10^3/ul (1.0-4.8); ABS Monocytes 0.5 10^3/ul (0-0.8); ABS Neutrophils 1.5 10^3/ul (1.5-7.7); Eosinophil % 3.8 %; Hematocrit 36 % (35-47); Hemoglobin 12.3 g/dL (12.0-16.0); Lymphocyte % 55.9 %; Mean Corpuscular HGB Conc 34 g/dL (31-36); Mean Corpuscular Hemoglobin 29 pg (27-31); Mean Corpuscular Volume 85 fL (80-97); Mean Platelet Volume 9.5 fL (7.4-10.4); Platelet Count 176 10^3/uL (150-450); Red Blood Count 4.28 10^6 /uL (3.70-4.87); Red Cell Distribution Width 13 % (10-15); White Blood Count 5.2 10^3/uL (3.5-10.8)
[2022-01-06] MEDS: OLANZapine 5 mg TAB *ODT PO PRN (15:39)
[2022-01-07] MEDS: Buprenorphine 2 mg SL TAB SL SCH ×3 (08:09→20:29)
[2022-01-07] MEDS: OLANZapine 5 mg TAB *ODT PO PRN ×2 (08:13→20:27)
[2022-01-07] MEDS: Nicotine PATCH 21 MG/24 HR PATCH TRANSDERM SCH (08:14)
[2022-01-07] MEDS: Nicotine Lozenge mini 4 MG LOZNG.MINI MT PRN ×3 (08:16→20:23)
[2022-01-08] MEDS: Buprenorphine 2 mg SL TAB SL SCH ×3 (08:02→20:11)
[2022-01-08] MEDS: Nicotine PATCH 21 MG/24 HR PATCH TRANSDERM SCH (08:05)
[2022-01-08] MEDS: Nicotine Lozenge mini 4 MG LOZNG.MINI MT PRN (16:59)
[2022-01-08] MEDS: OLANZapine 5 mg TAB *ODT PO PRN (17:00)
[2022-01-09] MEDS: Nicotine Lozenge mini 4 MG LOZNG.MINI MT PRN ×3 (04:15→20:14)
[2022-01-09] MEDS: Buprenorphine 2 mg SL TAB SL SCH ×3 (08:08→20:08)
[2022-01-09] MEDS: Nicotine PATCH 21 MG/24 HR PATCH TRANSDERM SCH (08:08)
[2022-01-09] MEDS: OLANZapine 5 mg TAB *ODT PO PRN ×2 (13:42→20:07)
[2022-01-10] MEDS: Nicotine Lozenge mini 4 MG LOZNG.MINI MT PRN ×3 (04:56→17:36)
[2022-01-10] MEDS: Nicotine PATCH 21 MG/24 HR PATCH TRANSDERM SCH (08:02)
[2022-01-10] MEDS: Buprenorphine 2 mg SL TAB SL SCH ×3 (08:02→20:14)
[2022-01-10] MEDS: OLANZapine 5 mg TAB *ODT PO PRN ×2 (08:06→19:29)
[2022-01-11] MEDS: Nicotine Lozenge mini 4 MG LOZNG.MINI MT PRN ×6 (00:05→21:31)
[2022-01-11] MEDS: Nicotine PATCH 21 MG/24 HR PATCH TRANSDERM SCH (07:52)
[2022-01-11] MEDS: Buprenorphine 2 mg SL TAB SL SCH ×3 (07:53→20:02)
[2022-01-11] MEDS: OLANZapine 5 mg TAB *ODT PO PRN ×2 (11:51→18:35)
[2022-01-12] MEDS: Nicotine Lozenge mini 4 MG LOZNG.MINI MT PRN ×5 (02:19→23:36)
[2022-01-12] MEDS: Buprenorphine 2 mg SL TAB SL SCH ×3 (07:39→21:08)
[2022-01-12] MEDS: Nicotine PATCH 21 MG/24 HR PATCH TRANSDERM SCH (08:00)
[2022-01-12] MEDS: OLANZapine 5 mg TAB *ODT PO PRN ×2 (18:23→21:08)
[2022-01-13] MEDS: Nicotine PATCH 21 MG/24 HR PATCH TRANSDERM SCH (08:28)
[2022-01-13] MEDS: Buprenorphine 2 mg SL TAB SL SCH ×3 (08:29→20:06)
[2022-01-13] MEDS: Nicotine Lozenge mini 4 MG LOZNG.MINI MT PRN ×4 (08:40→23:44)
[2022-01-13] MEDS: OLANZapine 5 mg TAB *ODT PO PRN ×2 (18:55→23:44)
[2022-01-14] MEDS: Nicotine Lozenge mini 4 MG LOZNG.MINI MT PRN ×4 (06:31→21:17)
[2022-01-14] MEDS: Buprenorphine 2 mg SL TAB SL SCH ×3 (08:00→21:08)
[2022-01-14] MEDS: Nicotine PATCH 21 MG/24 HR PATCH TRANSDERM SCH (08:01)
[2022-01-14 10:54] LABS: ABS Eosinophils 0.3 10^3/ul (0-0.6); ABS Lymphocytes 1.5 10^3/ul (1.0-4.8); ABS Monocytes 0.4 10^3/ul (0-0.8); ABS Neutrophils 2.1 10^3/ul (1.5-7.7); Eosinophil % 7.9 %; Hematocrit 33 % (35-47); Hemoglobin 11.1 g/dL (12.0-16.0); Lymphocyte % 34.5 %; Mean Corpuscular HGB Conc 34 g/dL (31-36); Mean Corpuscular Hemoglobin 29 pg (27-31); Mean Corpuscular Volume 86 fL (80-97); Mean Platelet Volume 9.6 fL (7.4-10.4); Nucleated Red Blood Cells % 0.1; Platelet Count 155 10^3/uL (150-450); Red Blood Count 3.88 10^6 /uL (3.70-4.87); Red Cell Distribution Width 14 % (10-15); White Blood Count 4.4 10^3/uL (3.5-10.8)
[2022-01-14] MEDS: OLANZapine 5 mg TAB *ODT PO PRN ×2 (18:34→23:05)
[2022-01-15] MEDS: Buprenorphine 2 mg SL TAB SL SCH ×3 (08:08→20:17)
[2022-01-15] MEDS: Nicotine PATCH 21 MG/24 HR PATCH TRANSDERM SCH (08:08)
[2022-01-15] MEDS: Nicotine Lozenge mini 4 MG LOZNG.MINI MT PRN ×2 (09:35→16:36)
[2022-01-15] MEDS: Valproic Acid LIQ 250 MG/5 ML UDC PO SCH ×2 (11:25→20:17)
[2022-01-15] MEDS: OLANZapine 5 mg TAB *ODT PO PRN (17:31)
[2022-01-16] MEDS: OLANZapine 5 mg TAB *ODT PO PRN ×3 (05:51→21:41)
[2022-01-16] MEDS: Nicotine Lozenge mini 4 MG LOZNG.MINI MT PRN ×4 (05:51→20:31)
[2022-01-16] MEDS: Valproic Acid LIQ 250 MG/5 ML UDC PO SCH ×2 (09:32→20:30)
[2022-01-16] MEDS: Buprenorphine 2 mg SL TAB SL SCH ×3 (09:33→20:29)
[2022-01-16] MEDS: Nicotine PATCH 21 MG/24 HR PATCH TRANSDERM SCH (09:36)
[2022-01-16] MEDS: Al Hydrox/Mg Hydrox/Simet LIQ 30 ML UDC PO PRN (21:41)
[2022-01-17] MEDS: OLANZapine 5 mg TAB *ODT PO PRN (04:04)
[2022-01-17] MEDS: Nicotine PATCH 21 MG/24 HR PATCH TRANSDERM SCH (08:16)
[2022-01-17] MEDS: Valproic Acid LIQ 250 MG/5 ML UDC PO SCH ×2 (08:17→20:10)
[2022-01-17] MEDS: Buprenorphine 2 mg SL TAB SL SCH ×3 (08:18→20:09)
[2022-01-17] MEDS: Nicotine Lozenge mini 4 MG LOZNG.MINI MT PRN ×3 (09:06→20:12)
[2022-01-18] MEDS: Valproic Acid LIQ 250 MG/5 ML UDC PO SCH ×2 (07:43→20:06)
[2022-01-18] MEDS: Nicotine PATCH 21 MG/24 HR PATCH TRANSDERM SCH (07:44)
[2022-01-18] MEDS: Buprenorphine 2 mg SL TAB SL SCH ×3 (07:46→20:06)
[2022-01-18] MEDS: Nicotine Lozenge mini 4 MG LOZNG.MINI MT PRN ×4 (07:47→22:48)
[2022-01-18] MEDS: OLANZapine 5 mg TAB *ODT PO PRN ×2 (21:38→22:20)
[2022-01-19] MEDS: Buprenorphine 2 mg SL TAB SL SCH ×3 (08:17→21:21)
[2022-01-19] MEDS: Valproic Acid LIQ 250 MG/5 ML UDC PO SCH ×2 (08:17→21:14)
[2022-01-19] MEDS: Nicotine PATCH 21 MG/24 HR PATCH TRANSDERM SCH (08:18)
[2022-01-19] MEDS: Nicotine Lozenge mini 4 MG LOZNG.MINI MT PRN ×4 (08:35→21:15)
[2022-01-20] MEDS: Nicotine Lozenge mini 4 MG LOZNG.MINI MT PRN ×5 (03:54→21:57)
[2022-01-20] MEDS: Nicotine PATCH 21 MG/24 HR PATCH TRANSDERM SCH (07:59)
[2022-01-20] MEDS: Buprenorphine 2 mg SL TAB SL SCH ×3 (08:01→20:14)
[2022-01-20] MEDS: Valproic Acid LIQ 250 MG/5 ML UDC PO SCH ×2 (08:01→20:11)
[2022-01-20 10:46] LABS: ABS Eosinophils 0.2 10^3/ul (0-0.6); ABS Lymphocytes 1.6 10^3/ul (1.0-4.8); ABS Monocytes 0.8 10^3/ul (0-0.8); ABS Neutrophils 4.3 10^3/ul (1.5-7.7); Eosinophil % 3.1 %; Hematocrit 30 % (35-47); Mean Corpuscular HGB Conc 33 g/dL (31-36); Mean Corpuscular Hemoglobin 28 pg (27-31); Mean Corpuscular Volume 85 fL (80-97); Mean Platelet Volume 8.6 fL (7.4-10.4); Platelet Count 217 10^3/uL (150-450); Red Blood Count 3.55 10^6 /uL (3.70-4.87); Red Cell Distribution Width 13 % (10-15); White Blood Count 6.9 10^3/uL (3.5-10.8)
[2022-01-20] MEDS ORDERED: Benzocaine/Menthol LOZ MT PRN (15:34)
[2022-01-20 17:51] LABS: Urine Appearance Cloudy; Urine Bilirubin Negative (Negative); Urine Blood Negative (Negative); Urine Color Yellow; Urine Glucose Negative (Negative); Urine Ketones Negative (Negative); Urine Nitrite Negative (Negative); Urine Protein 1+(30 mg/dL) (Negative); Urine Specific Gravity 1.027 (1.002-1.030); Urine Urobilinogen Negative (Negative)
[2022-01-20 18:06] LABS: Urine Bacteria 1+ (Absent); Urine Red Blood Cell 2+(6-10/hpf) (Absent); Urine Squamous Epithelial Cell Present (Absent); Urine White Blood Cell 3+(>20/hpf) (Absent)
[2022-01-21] MEDS: Buprenorphine 2 mg SL TAB SL SCH (08:02)
[2022-01-21] MEDS: Valproic Acid LIQ 250 MG/5 ML UDC PO SCH (08:02)
[2022-01-21] MEDS: Nicotine PATCH 21 MG/24 HR PATCH TRANSDERM SCH (08:16)
[2022-01-21] MEDS: Nicotine Lozenge mini 4 MG LOZNG.MINI MT PRN (09:24)
[2022-01-21 09:57] VITALS: BP 107/67
== END 2022-01-21 09:45 | DRG 753 ==
LOC: ED 22:26 → EDHOLD 12-02 11:59 → BSU 12-02 13:43
PROVIDERS: ADMIT Psychiatry & Neurology Psychiatry; ATTEND Psychiatry & Neurology Psychiatry

== ENCOUNTER 2023-05-31 19:48 | Inpatient (IN) ==
[2023-05-31 21:12] LABS: ABS Basophils 0.1 10^3/uL (0.0-0.1); ABS Eosinophils 0.6 10^3/uL (0.0-0.5); ABS Lymphocytes 4.3 10^3/uL (1.0-4.8); ABS Monocytes 0.6 10^3/uL (0.0-0.9); ABS Neutrophils 6.9 10^3/uL (1.5-7.6); Eosinophil % 4.6 %; Hematocrit 35.5 % (35-45); Lymphocyte % 34.4 %; Mean Corpuscular Hemoglobin 28.1 pg (27-33); Mean Corpuscular Hgb Conc 33.6 g/dL (31-36); Mean Corpuscular Volume 83.5 fL (80-97); Mean Platelet Volume 8.1 fL (7.5-11.2); Platelet Count 333 10^3/uL (150-450); Red Blood Count 4.26 10^6/uL (3.63-4.92); Red Cell Distribution Width 13.3 % (12-17); White Blood Count 12.5 10^3/uL (3.8-11.8)
[2023-05-31 21:29] LABS: ALT 21 U/L (7-52); AST 18 U/L (13-39); Albumin 4.5 g/dL (3.2-5.2); Albumin/Globulin Ratio 1.6 (1-3); Alkaline Phosphatase 96 U/L (35-149); Anion Gap 4 mmol/L (2-16); Blood Urea Nitrogen 5 mg/dL (6-24); CO2 Carbon Dioxide 28 mmol/L (22-32); Calcium 9.7 mg/dL (8.6-10.3); Chloride 104 mmol/L (101-111); Creatinine, Serum 0.76 mg/dL (0.51-0.95); Globulin 2.9 g/dL (2-4); Glucose 79 mg/dL (70-100); Potassium 3.8 mmol/L (3.5-5.0); Sodium 136 mmol/L (135-145); Total Bilirubin 0.2 mg/dL (0.2-1.0); Total Protein 7.4 g/dL (6.4-8.9); Urine Appearance Clear; Urine Bilirubin Negative (Negative); Urine Blood Negative (Negative); Urine Color Light-Yellow; Urine Glucose Negative (Negative); Urine Ketones Negative (Negative); Urine Nitrite Negative (Negative); Urine Protein Negative (Negative); Urine Specific Gravity 1.005 (1.002-1.030); Urine Urobilinogen Negative (Negative); Urine pH 7.5 (5.0-8.0); eGFR CKD-EPI 107.4 (>60)
[2023-05-31 21:33] LABS: Urine Benzodiazepine Screen None Detected (None Detect); Urine Cannabinoids Screen None Detected (None Detect); Urine Opiates Screen None Detected (None Detect)
[2023-05-31 21:40] LABS: Acetaminophen < 15 mcg/mL; Alcohol, S < 13 mg/dL (<13); Salicylate < 2.50 mg/dL (<30)
[2023-05-31 21:51] LABS: Urine Bacteria Absent /HPF (Absent); Urine Red Blood Cell Absent /HPF (0-Trace); Urine Squamous Epithelial Cell Present /HPF (Absent); Urine White Blood Cell Trace(0-5/hpf) /HPF (0-Trace)
[2023-05-31 21:55] LABS: TSH Ultra Thyroid Stim Horm 1.43 mcIU/mL (0.34-5.60)
[2023-05-31] MEDS: Albuterol HFA INHALER 8 gm MDI INH ONE (22:39)
[2023-05-31 23:54] LABS: Valproic Acid < 10.0 mcg/mL (50-100)
[2023-06-01 08:54] LABS: HCG Pregnancy < 0.60 mIU/mL
[2023-06-01] MEDS ORDERED: Nicotine PATCH 21 MG/24 HR PATCH ONE (10:07)
[2023-06-01] MEDS: Nicotine PATCH 14 MG/24 HR PATCH TRANSDERM ONE (10:13)
[2023-06-01] MEDS ORDERED: Polyethylene Glycol 3350 17 GM PACKET PO PRN (11:28)
[2023-06-01 12:30] LABS: Lithium 0.68 mmol/L (0.6-1.2)
[2023-06-01] MEDS: Nicotine PATCH 21 MG/24 HR PATCH ONE (12:36)
[2023-06-01] MEDS: Nicotine GUM 4MG FRUIT FLAVOR PO ONE (12:37)
[2023-06-01] MEDS: Nicotine Lozenge mini 4 MG LOZNG.MINI MT PRN (12:40)
[2023-06-01 13:38] LABS: Urine Benzodiazepine Screen None Detected (None Detect); Urine Buprenorphine Screen Presumptive Positive (None Detect); Urine Cannabinoids Screen None Detected (None Detect); Urine Fentanyl Screen Presumptive Positive (None Detect); Urine Hydrocodone Screen None Detected (None Detect); Urine Opiates Screen None Detected (None Detect)
[2023-06-01] MEDS: Nicotine PATCH 21 MG/24 HR PATCH TRANSDERM SCH (13:43)
[2023-06-01] MEDS: Buprenorphine 2 mg SL TAB SL SCH (13:47)
[2023-06-01] MEDS: GLYCOPYRROLATE 1 MG PO SCH (15:00)
[2023-06-01] MEDS: Atropine 1% (ORAL/SL) 15 ML BTL SL SCH (20:23)
[2023-06-01] MEDS ORDERED: Lithium Carbonate ER 450mg TAB PO SCH (21:00)
[2023-06-02] MEDS: Benzocaine/Menthol LOZ PO PRN (06:18)
[2023-06-02 08:08] LABS: HDL Cholesterol 26.7 mg/dL
[2023-06-02] MEDS: Vitamin THERAPEUTIC TAB PO SCH (08:50)
[2023-06-02] MEDS: Albuterol HFA INHALER 8 gm MDI INH PRN (21:39)
[2023-06-03 21:10] LABS: Clozapine 164 ng/mL (350-600); Clozapine & Norclozapine Level 345 ng/mL; Norclozapine 181 ng/mL
[2023-06-04] MEDS: Al Hydrox/Mg Hydrox/Simet LIQ 30 ML UDC PO PRN (18:33)
[2023-06-06] MEDS ORDERED: Ondansetron ODT 4 mg TAB 4 MG TAB SL PRN (13:34)
[2023-06-06] MEDS: Ondansetron ODT 4 mg TAB 4 MG TAB ONE (13:42)
[2023-06-06 18:58] LABS: ABS Basophils 0.1 10^3/uL (0.0-0.1); ABS Eosinophils 0.6 10^3/uL (0.0-0.5); ABS Lymphocytes 3.8 10^3/uL (1.0-4.8); ABS Monocytes 0.8 10^3/uL (0.0-0.9); ABS Neutrophils 7.4 10^3/uL (1.5-7.6); Eosinophil % 4.5 %; Hematocrit 34.8 % (35-45); Hemoglobin 11.7 g/dL (11.5-14.3); Lymphocyte % 30.1 %; Mean Corpuscular Hemoglobin 28.1 pg (27-33); Mean Corpuscular Hgb Conc 33.5 g/dL (31-36); Mean Platelet Volume 8.5 fL (7.5-11.2); Platelet Count 290 10^3/uL (150-450); Red Blood Count 4.15 10^6/uL (3.63-4.92); Red Cell Distribution Width 13.3 % (12-17); White Blood Count 12.7 10^3/uL (3.8-11.8)
[2023-06-06 19:49] LABS: Albumin 4.5 g/dL (3.2-5.2); Albumin/Globulin Ratio 1.6 (1-3); Calcium 9.4 mg/dL (8.6-10.3); Creatinine, Serum 0.67 mg/dL (0.51-0.95); Globulin 2.8 g/dL (2-4); Lithium 0.49 mmol/L (0.6-1.2); Potassium 4.5 mmol/L (3.5-5.0); Total Bilirubin 0.2 mg/dL (0.2-1.0); Total Protein 7.3 g/dL (6.4-8.9); eGFR CKD-EPI 119.8 (>60)
[2023-06-06] MEDS: GLYCOPYRROLATE 1 MG PO SCH (20:22)
[2023-06-07 08:00] VITALS: BP 98/51
[2023-06-07] MEDS: GLYCOPYRROLATE 1 MG PO SCH (11:28)
[2023-06-07] MEDS: Nicotine GUM 2MG FRUIT FLAVOR PO PRN (19:15)
[2023-06-07] MEDS: Nicotine GUM 2MG FRUIT FLAVOR PO ONE (19:32)
== END 2023-06-08 12:10 | disposition home or self-care (01) | DRG 773 ==
LOC: ED 19:48 → BSU 06-01 10:02 → EDHOLD 06-01 10:02 → BSU 06-01 11:44
PROVIDERS: ADMIT Psychiatry & Neurology Psychiatry; ATTEND Psychiatry & Neurology Psychiatry